=== PATIENT | female | born 1945 | race Caucasian/White ===

== ENCOUNTER 2017-12-03 00:58 | Emergency (ER) | payer MEDICARE, BC, SELFPAY ==
[2017-12-03 01:15] VITALS: BP 185/95; PULSE 68; RESP 18; TEMP 37.2; O2SAT 96; BMI 41.9
--- NOTE | 2017-12-03 01:37 | ED_ITS ---
HPI - Female Genitourinary General Chief complaint: Urogenital-Female Stated complaint: Blood in urine Time Seen by Provider: 12/03/17 01:23 Source: patient Mode of arrival: ambulatory Limitations: no limitations History of Present Illness HPI Narrative: Patient is a 72-year-old female presents with blood in her urine. She said she went up to use the restroom this evening when she noticed bright red blood. She has no pain she is feeling well prior. No vomiting no fever no flank pain she is not on any blood thinners. MD Complaint: other (Hematuria) Related Data Previous Rx's Medication Instructions Recorded sulfamethoxazole-trimethoprim 1 tab PO BID 5 Days #10 tab 12/03/17 [Bactrim DS] Allergies Allergy/AdvReac Type Severity Reaction Status Date / Time rivaroxaban [From XARELTO] AdvReac Mild HIVES Verified 12/03/17 01:18 Review of Systems Constitutional Denies chills, Denies fever(s), Denies lethargy and Denies weakness Cardiovascular Denies chest pain, Denies irregular heart rhythm, Denies lightheadedness, Denies palpitations and Denies orthopnea Gastrointestinal Gastrointestinal: Denies abdominal pain, Denies change in bowel habits, Denies diarrhea, Denies nausea and Denies vomiting Genitourinary Reports as per HPI and Reports hematuria Integumentary/Breasts Denies pruritus, Denies erythema, Denies rash and Denies wounds Neurologic Denies weakness Endocrine Denies palpitations PFSH Social History Smoking Status: Never smoker Exam Initial Vital Signs Initial Vital Signs: Vital Signs Temperature 98.9 F 12/03/17 01:15 Pulse Rate 68 12/03/17 01:15 Respiratory Rate 18 12/03/17 01:15 Blood Pressure 185/95 H 12/03/17 01:15 Pulse Oximetry 96 12/03/17 01:15 Const General: cooperative and well developed Nutritional Appearance: overweight Orientation: alert, awake, oriented x3 and not confused Chest Chest: normal inspection of the chest Resp Effort & Inspection: normal respiratory effort, able to speak in complete sentences, no respiratory distress and no use of accessory muscles Auscultation: clear to auscultation bilaterally, no rales, no rhonchi and no wheezes Cardio Rate: regular rate Rhythm: regular rhythm Heart Sounds: no click, no gallops, no murmurs and no rubs Pulses: normal peripheral pulses GI Inspection: non-distended Palpation: soft, no hepatosplenomegaly, No guarding, No pulsatile mass and No tender Auscultation: normal bowel sounds Skin General: no rashes or lesions noted, No jaundice and No petechiae Course Orders Ordered: ED Orders 12/03/17 02:10 UA Complete [Urinalysis and Microscopic] Stat Urine Culture Stat Discontinued Medications Trimethoprim/Sulfamethoxazole (Bactrim Ds Prepack) 1 bottle MIS SEEINSTR ONE Stop: 12/03/17 02:42 Last Admin: 12/03/17 02:51 Dose: 1 bottle Vital Signs - 8 hr 12/03/17 01:15 Temperature 98.9 F Pulse Rate 68 Respiratory Rate 18 Blood Pressure 185/95 H Pulse Oximetry 96 MDM - Female Genitourinary Lab Data Lab Results 12/03/17 Range/Units 02:10 Urine Color Yellow Urine Appearance Clear Urine pH 5.0 (4.5-8.0) Ur Specific [place] 1.025 (1.000-1.035) Urine Protein Negative (Negative) Urine Glucose (UA) Negative (Normal) g/dL Urine Ketones Negative (NEGATIVE) Urine Occult Blood Trace-intact (Negative) Urine Nitrate Negative (Negative) Urine Bilirubin Negative (NEGATIVE) Urine Urobilinogen 0.2 (0.2) E.U./dL Ur Leukocyte Esterase Trace H (NEGATIVE) Urine RBC 0-1/hpf (0-5/HPF) Urine WBC 0-1/hpf (0-5/HPF) Ur Squamous Epith Cells 1-5 /hpf Urine Bacteria Occasional (0-1) (None) Ur Culture Indicated? Specimen cultured Micro UA Comment Not Reportable [facility] Narrative Medical decision making narrative: Patient has gross blood with trace leukocytes. At this time will treat for UTI Discharge Plan Departure Patient Disposition: Home, Self-Care Clinical Impression: Urinary tract infection Instructions: DI for Urinary Tract Infection (UTI) Activity Restrictions/Additional Instructions: *You have been diagnosed with bladder infection *What to do: Increase fluid intake *Continue to take medications as directed -Septra 1 tablet twice a day for 5 days *Follow up with your primary care provider in 2-3 days *Return to ER if you should have increasing pain, persistent blood, fever inability to tolerate antibiotic or fluid [or] any new, worsening or concerning symptoms Prescriptions: New sulfamethoxazole-trimethoprim [Bactrim DS] 800-160 mg tablet 1 tab PO BID 5 Days Qty: 10 RF: 0
[2017-12-03 02:34] LABS: Appearance Urine UA CLEAR; Bilirubin Urine UA NEGATIVE (NEGATIVE); Color Urine UA YELLOW; Glucose Urine UA NEGATIVE (Normal); Ketones Urine UA NEGATIVE (NEGATIVE); Leukocyte Esterase Urine UA TRACE (NEGATIVE); Nitrite Urine UA Negative (Negative); Occult Blood Urine UA TRACE-INTACT (Negative); Protein Urine UA NEGATIVE (Negative); Specific Gravity Urine UA 1.025 (1.000-1.035); Urobilinogen Urine UA 0.2 E.U./dL (0.2)
[2017-12-03 02:39] LABS: Bacteria Urine Occasional (0-1); Culture Indicated Urine Specimen Cultured; RBC Urine 0-1/HPF (0-5/HPF); Squamous Epithelial Cell Urine 1-5 /HPF; WBC Urine 0-1/HPF (0-5/HPF)
[2017-12-03] MEDS: SULFA/TRIMETH 800/160 PREPACK 1 BOTTLE MISC (02:51)
[2017-12-03 03:15] VITALS: BP 185/95; PULSE 70; RESP 16; O2SAT 100
== END 2017-12-03 03:15 | disposition home or self-care (01) ==
LOC: ED 03:01
PROVIDERS: Emergency Provider Emergency Medicine
DX: N39.0 Urinary tract infection, site not specified (principal)
CPT/HCPCS: 81001; 87086; 99282; 99283

== ENCOUNTER 2018-02-26 02:01 | Emergency (ER) | payer MEDICARE, BC, SELFPAY ==
[2018-02-26 02:06] VITALS: BP 139/86; PULSE 58; TEMP 36.1; O2SAT 98; BMI 43.2
--- NOTE | 2018-02-26 02:22 | DI.RAD.S_ITS ---
PROCEDURE: XR CHEST 1V INDICATIONS: Dizziness. TECHNIQUE: One view of the chest was acquired. COMPARISON: [facility], , CHEST 1 VIEW, 03/06/2015, 11:00. FINDINGS: Surgical changes and devices: None. Lungs and pleura: No pleural effusions or pneumothorax. Lungs are clear. Mediastinum: Cardiac silhouette again measures at the upper limits of normal in size, but is unchanged from prior exam. Mild prominence of the pulmonary vasculature noted. Bones and chest wall: No suspicious bony lesions. Overlying soft tissues appear unremarkable. IMPRESSION: No acute cardiopulmonary disease. Dictated by: Chuy De Leon M.D. on 02/26/2018 at 8:26 Approved by: Chuy De Leon M.D. on 02/26/2018 at 8:29
--- NOTE | 2018-02-26 02:46 | DI.CT.S_ITS ---
PROCEDURE: CT HEAD/BRAIN WO CON INDICATIONS: dizziness TECHNIQUE: Noncontrast 4.5 mm thick angled axial sections acquired from the foramen magnum to the vertex, with coronal and sagittal reformats. For radiation dose reduction, the following was used: automated exposure control, adjustment of mA and/or kV according to patient size. COMPARISON: None. FINDINGS: Image quality: Excellent. CSF spaces: Basal cisterns are patent. No extra-axial fluid collections. The ventricles are symmetric in size and shape. Brain: No intracranial bleeds or masses. There is cerebral volume loss for age, with resultant ventricular and sulcal prominence. There are periventricular and deep white matter chronic small vessel ischemic changes. Incidental note made of cavum septum pellucidum. There is intracranial internal carotid artery atherosclerosis. Skull and face: Calvarium and visualized facial bones appear intact, without suspicious lesions. Sinuses: Visualized sinuses are clear. Trace fluid noted in the dependent portion of the right mastoid air cells. Left mastoid air cells are clear. IMPRESSION: No acute intracranial disease process. Dictated by: Alicia Frazier MD, PhD on 02/26/2018 at 7:40 Approved by: Alicia Frazier MD, PhD on 02/26/2018 at 7:43
[2018-02-26 02:50] LABS: Add Manual Diff / Slide Review NO; Basophils Percent Auto 0.8 % (0-2); Eosinophils Percent Auto 2.3 % (2-4); Hematocrit 36.9 % (36-46); Hemoglobin 12.6 g/dL (12.0-16.0); Mean Corpuscular HGB Conc 34.2 % (30-36); Mean Corpuscular Hemoglobin 31.3 PG (26-34); Mean Corpuscular Volume 91.5 fL (80-100); Monocytes Percent Auto 6.6 % (3-14); Neutrophils Absolute Auto 4700 /uL (3000-5900); Neutrophils Percent Auto 67.3 % (50-75); Platelet Count 237 X10^3/uL (150-400); Red Blood Cell Count 4.03 X10^6/uL (4.0-5.2); Red Cell Distribution Width 13.4 % (11.6-14.8)
--- NOTE | 2018-02-26 02:51 | ED_ITS ---
HPI - Dizziness General Chief Complaint: Dizziness Stated Complaint: TROUBLE SLEEPING AND DIZZY Time Seen by Provider: 02/26/18 02:05 Source: patient Mode of arrival: ambulatory Limitations: no limitations History of Present Illness HPI Narrative: 72-year-old female, nonsmoker, history of GERD presents to the emergency department for evaluation of dizziness that started suddenly as the patient was attempting to get into bed. She states she was intensely dizzy with any motion of her head and it seemed to improve when she remains still. She is no longer dizzy but does admit to some nausea. She has vomited a few times. She denies any chest pain or shortness of breath. She denies any abdominal pain but did have a loose stool earlier. She denies any black or tarry stools. She denies any dysuria, frequency or urgency. She had a similar episode a few years ago with a very thorough evaluation including admission with MRI which ended in the diagnosis inner ear infection. She does admit to some nasal congestion and runny nose recently. Her symptoms started at about 10 or 11 this evening MD complaint: dizziness Onset (ago): hour(s) Timing: sudden onset Description: room spinning History of similar episodes: Yes History of trauma: No Severity: moderate Relieving factors: remaining still Exacerbating factors: movement Associated symptoms: nausea Related Data Previous Rx's Medication Instructions Recorded meclizine 12.5 mg PO BID-TID PRN #14 tab 02/26/18 ondansetron [Zofran ODT] 4 mg PO Q6H PRN #14 tab 02/26/18 Allergies Allergy/AdvReac Type Severity Reaction Status Date / Time rivaroxaban [From XARELTO] AdvReac Mild HIVES Verified 12/03/17 01:18 Review of Systems Review of Systems All systems reviewed & are unremarkable except as noted in HPI and below Constitutional Denies chills, Denies fever(s), Denies lethargy and Denies weakness Eyes Denies change in vision, Denies eye discharge, Denies irritation and Denies loss of vision ENT Ears, Nose, Mouth, and Throat: Denies change in voice, Reports dizziness, Reports nasal congestion, Reports nasal discharge, Denies neck pain and Denies sore throat Cardiovascular Denies chest pain, Denies irregular heart rhythm, Denies lightheadedness, Denies palpitations, Denies dyspnea, Denies dyspnea on exertion and Denies orthopnea Respiratory Denies cough, Denies dyspnea, Denies dyspnea on exertion and Denies wheezing Gastrointestinal Gastrointestinal: Denies abdominal pain, Denies change in bowel habits, Denies diarrhea, Reports nausea and Reports vomiting Genitourinary Denies hematuria, Denies flank pain, Denies urinary incontinence and Denies urinary urgency Musculoskeletal Denies neck pain Integumentary/Breasts Denies pruritus, Denies erythema, Denies rash and Denies wounds Neurologic Denies confusion, Reports dizziness, Denies loss of vision and Denies weakness Psychiatric Denies anxiety, Denies confusion, Denies depression, Denies homicidal ideation and Denies suicidal ideation Endocrine Denies palpitations Hematologic/Lymphatic Denies easy bruising Allergic/Immunologic Denies wheezing [facility] Social History Smoking Status: Never smoker Exam Narrative Exam Narrative: Pleasant 72-year-old female in no obvious distress Initial Vital Signs Initial Vital Signs: Vital Signs Temperature 97 F L 02/26/18 02:06 Pulse Rate 58 L 02/26/18 02:06 Blood Pressure 139/86 02/26/18 02:06 Pulse Oximetry 98 02/26/18 02:06 Const General: cooperative and well developed Nutritional Appearance: well nourished Orientation: alert, awake, oriented x3 and not confused [facility] Head: normocephalic and atraumatic Ears: external ears normal and TM's normal bilaterally Nose: external nose normal and No nasal discharge Face and sinus: dry mucous membranes Teeth and gingiva: dentition normal Throat: tonsils normal and uvula midline Eyes General: appearance normal, both eyes and all related structures Eyelids: eyelids normal Conjunctivae: conjunctivae normal Sclera: sclerae normal Pupils: PERRL EOM: EOM intact bilaterally Chest Chest: normal inspection of the chest Resp Effort & Inspection: normal respiratory effort, able to speak in complete sentences, no respiratory distress and no use of accessory muscles Auscultation: clear to auscultation bilaterally, no rales, no rhonchi and no wheezes Cardio Rate: regular rate Rhythm: regular rhythm Heart Sounds: no click, no gallops, no murmurs and no rubs Pulses: normal peripheral pulses GI Inspection: non-distended Palpation: soft, no hepatosplenomegaly, No guarding, No pulsatile mass and No tender Auscultation: normal bowel sounds Back/Spine/Pelvis Back: No CVA tenderness Cervical Spine: cervical ROM normal and No pain with cervical ROM Thoracic/Lumbar Spine: thoracic and lumbar spine normal to inspection Skin General: no rashes or lesions noted, No jaundice and No petechiae Neuro General: alert, oriented x3, gait normal and no focal motor deficits Speech: speech normal Extrem General: full ROM, no clubbing, cyanosis or edema, no pedal edema and no calf tenderness Scores NIH Stroke Scale Level of Conciousness: Alert, keenly responsive Ask month/age: Answers both questions correctly. Open/close eyes, close hand: Performs both tasks correctly Best gaze horizontal: Normal Visual arora: No visual loss Facial palsy: Normal symetrical movement Left arm drift: No drift for full 10 sec Right arm drift: No drift for full 10 sec Left leg drift: No drift for full 10 sec Right leg drift: No drift for full 10 sec Limb ataxia: Absent Sensory on face/arms/legs: Normal, no sensory loss Best language: No aphasia, normal Dysarthria: Normal Extinction or inattention: No abnormality Total NIH Stroke scale score: 0 Course Orders Ordered: ED Orders 02/26/18 02:22 XR chest 1V Stat EKG-12 Lead Stat 02/26/18 02:30 Complete Blood Count AUTO DIFF Stat Comprehensive Metabolic Panel Stat Troponin & CK Cardiac Panel Stat 02/26/18 02:46 CT head/brain wo con Stat Sodium Chloride (Normal Saline 0.9%) 1,000 mls @ 150 mls/hr IV CONT TRINITY Last Admin: 02/26/18 03:01 Dose: 150 mls/hr Discontinued Medications Meclizine HCl (Antivert) 25 mg PO NOW ONE Stop: 02/26/18 05:09 Last Admin: 02/26/18 05:12 Dose: 25 mg Ondansetron HCl (Zofran) 4 mg IV NOW ONE Stop: 02/26/18 05:09 Last Admin: 02/26/18 05:12 Dose: 4 mg Reevaluation(s) Reevaluation #1: patient feeling much better after fluid and meds noted above. Vital Signs - 8 hr 02/26/18 02:06 02/26/18 03:00 02/26/18 04:00 Temperature 97 F L Pulse Rate 58 L 59 L 94 H Pulse Rate [Orthostatic Lying] Pulse Rate [Orthostatic Sitting] Pulse Rate [Orthostatic Standing] Respiratory Rate Blood Pressure 139/86 Blood Pressure [Orthostatic Lying] Blood Pressure [Orthostatic Sitting] Blood Pressure [Orthostatic Standing] Blood Pressure [Right Arm] 146/77 H 154/59 H Pulse Oximetry 98 98 95 02/26/18 05:04 02/26/18 05:42 Temperature Pulse Rate 56 L Pulse Rate [Orthostatic Lying] 66 Pulse Rate [Orthostatic Sitting] 63 Pulse Rate [Orthostatic Standing] 65 Respiratory Rate 18 Blood Pressure Blood Pressure [Orthostatic Lying] 159/75 H Blood Pressure [Orthostatic Sitting] 159/81 H Blood Pressure [Orthostatic Standing] 167/83 H Blood Pressure [Right Arm] 169/76 H Pulse Oximetry 97 MDM - Dizziness Differential Diagnosis Likely benign paroxysmal positional vertigo, orthostatic hypotension, vertebral basilar insufficiency, cerebrovascular accident, acute vestibular neuronitis and transient cerebral ischemia Medical Records Attestation: I reviewed the patient's medical records. Lab Data Attestation: I reviewed the patient's lab results. Result diagrams: 02/26/18 02:30 02/26/18 02:30 Lab Results 02/26/18 02/26/18 Range/Units 02:30 02:30 WBC 7.0 (4.5-11.0) X10^3/uL RBC 4.03 (4.0-5.2) X10^6/uL Hgb 12.6 (12.0-16.0) g/dL Hct 36.9 (36-46) % MCV 91.5 (80-100) fL MCH 31.3 (26-34) PG MCHC 34.2 (30-36) % RDW 13.4 (11.6-14.8) % Plt Count 237 (150-400) X10^3/uL Neut % (Auto) 67.3 (50-75) % Lymph % (Auto) 23.0 L (25-40) % [place] % (Auto) 6.6 (3-14) % Eos % (Auto) 2.3 (2-4) % Baso % (Auto) 0.8 (0-2) % Neut # (Auto) 4700 (5729-8073) /uL Sodium 144 (137-145) mmol/L Potassium 3.5 (3.4-5.1) mmol/L Chloride 105 (98-107) mmol/L Carbon Dioxide 27 (22-32) mmol/L BUN 28 H (7-17) mg/dL Creatinine 0.70 (0.52-1.04) mg/dL Estimated GFR > 60.0 (>60) mL/min BUN/Creatinine Ratio 40.0 H (6-22) Glucose 157 H (80-110) mg/dL Calcium 9.3 (8.4-10.2) mg/dL Total Bilirubin 0.5 (0.2-1.3) mg/dL AST 32 (14-36) IU/L ALT 31 (9-52) IU/L Alkaline Phosphatase 69 (38-126) U/L Total Creatine Kinase 41 (30-135) U/L Troponin I < 0.012 (0.01-0.034) ng/mL Total Protein 7.7 (6.3-8.2) g/dL Albumin 4.3 (3.5-5.0) g/dL Globulin 3.4 (1.7-4.1) g/dL Albumin/Globulin Ratio 1.3 (1.0-2.8) ECG Data Attestation: I personally reviewed and interpreted this ECG as follows: Prior ECG tracings: not available for review MDM Narrative Medical decision making narrative: patient with reproduceable dizziness is improved after medications and fluids. Normal orthostatics and head CT. Unremarkable labs. Discharge Plan Departure Patient Disposition: Home Clinical Impression: Dizziness Instructions: Combating Dizziness in Older Adults Activity Restrictions/Additional Instructions: *You have been diagnosed with [ acute dizziness] *What to do: *Take medications as directed *Follow up with your primary care provider in 2-3 days, call for an appointment. Let them know you were seen in the Emergency Department and that we ask that you be seen in follow up *Return to ER if you should have any new, worsening or concerning symptoms Prescriptions: New ondansetron [Zofran ODT] 4 mg tablet,disintegrating 4 mg PO Q6H PRN (Reason: nausea and vomiting) Qty: 14 RF: 0 meclizine 25 mg tablet 12.5 mg PO BID-TID PRN (Reason: dizziness) Qty: 14 RF: 0
[2018-02-26 02:55] LABS: Alanine Aminotransferase 31 IU/L (9-52); Albumin 4.3 g/dL (3.5-5.0); Albumin Globulin Ratio 1.3 (1.0-2.8); Alkaline Phosphatase 69 U/L (38-126); Aspartate Aminotransferase 32 IU/L (14-36); Bilirubin Total 0.5 mg/dL (0.2-1.3); Blood Urea Nitrogen 28 mg/dL (7-17); Calcium 9.3 mg/dL (8.4-10.2); Carbon Dioxide 27 mmol/L (22-32); Chloride 105 mmol/L (98-107); Creatine Kinase 41 U/L (30-135); Estimated Glomerular Filt Rate > 60.0 mL/min (>60); Globulin 3.4 g/dL (1.7-4.1); Glucose 157 mg/dL (80-110); HEMOLYSIS < 15 (0-50); Potassium 3.5 mmol/L (3.4-5.1); Sodium 144 mmol/L (137-145); Total Protein 7.7 g/dL (6.3-8.2)
[2018-02-26 03:00] VITALS: BP 146/77; PULSE 59; O2SAT 98
[2018-02-26] MEDS: SODIUM CHLORIDE 0.9% 1,000 ML 150 ML IV (03:01)
[2018-02-26 03:07] LABS: Troponin I < 0.012 ng/mL (0.01-0.034)
[2018-02-26 04:00] VITALS: BP 154/59; PULSE 94; O2SAT 95
[2018-02-26 05:04] VITALS: BP 159/75; BP 159/81; BP 167/83; PULSE 63; PULSE 65; PULSE 66
[2018-02-26] MEDS: MECLIZINE HCL 12.5 MG TABLET 25 MG PO (05:12)
[2018-02-26] MEDS: ONDANSETRON 4 MG/2 ML INJ IV (05:12)
[2018-02-26 05:42] VITALS: BP 169/76; PULSE 56; RESP 18; O2SAT 97
[2018-02-26 06:59] VITALS: BP 151/72; PULSE 60; RESP 18; O2SAT 98
--- NOTE | 2018-03-10 18:37 | PC.NURSE ---
At 0700 IV infused.600 ml infused.400 ml wasted.
== END 2018-02-26 07:01 | disposition home or self-care (01) ==
PROVIDERS: Emergency Provider Emergency Medicine; Family Provider Internal Medicine; PCP Internal Medicine
DX: R42 Dizziness and giddiness (principal)
CPT/HCPCS: 70450; 71045; 80053; 82550; 82553; 84484; 85025; 93005; 96361; 96374; 99283; 99285; J2405

== ENCOUNTER 2018-05-10 10:15 | Outpatient (RCR) | payer MEDICARE, BC, SELFPAY ==
--- NOTE | 2018-01-20 10:26 | PT.OIE ---
Current Diagnoses Bilateral primary osteoarthritis of knee (01/19/18) Provider Visit Care Team Role Provider Type Sriram Badillo MD Family Provider Physician Primary Care Provider Specialty: Internal Medicine Address: [address] [place] [address], [id number] Email: Aisha Jones MD Attending Provider Physician Specialty: Orthopedic Surgery Address: [address] [place] [address], [id number] Email: [email or web address] Physical Therapy Initial Evaluation PT-OP-A Visit Information Start: 01/19/18 14:31 Freq: Status: Active Protocol: Document 01/19/18 14:33 SAK (Rec: 01/19/18 16:37 SAK [id number]) Out-Patient Physical Therapy Visit Information Visit Information Visit Type Initial Evaluation Visit Start Time 14:33 Visit Stop Time 14:20 Total Visit Minutes 47 Visit Number 1 Number of LITIGATION PARALEGAL Visits 0 Evaluation Information Evaluation Date 01/19/18 PT-OP-B Current Condition Start: 01/19/18 14:31 Freq: Status: Active Protocol: Document 01/19/18 14:33 SAK (Rec: 01/19/18 14:44 SAK [id number]) Current Condition History of Current Condition Onset Date 15 years Current Complaints severe bilateral knee pain left greater than right History of Current Condition Reports multiple prior falls onto left LE that have caught up with me. Most difficult and painful activity is sit to stand. Uses trekking poles sometimes, states helps a lot because they keep me straight . Stair ambulation difficult , step-to pattern uses arms a lot. Uses scooter at grocery store. States she has done water exercise before, requests aquatic PT. Provides 5 day/wk care for grandchildren Prior Treatments and Tests x-rays show severe patellofemoral and medial compartment osteoarthritis bilaterally with osteophyte formation Future Testing and Treatments Planned Follow-up with Dr. Jones in 2 weeks Treatment Goals Patient/Caregiver Goals Decrease pain, improve activity tolerance, improve strength possibly in preparation for surgical intervention. Prior Functional Status Baseline Function- ADL's Independent Baseline Function- Mobility Independent Baseline Function- Gait independent, no device Current Functional Impairments (Reported) Functional Limitations- Mobility/Gait painful uses trekking poles, scooter at grocery store. Poor tolerance for community ambulation Personal Factors Other Personal Factors That May Effect Busy schedule with patient Therapy/Recovery expressing uncertainty about how to fit regular exercise into her schedule of caring for her grandchildren PT-OP-C Subjective Start: 01/19/18 14:31 Freq: Status: Active Protocol: Document 01/19/18 14:33 [facility] (Rec: 01/20/18 10:26 [facility] [id number]) Patient Questionnaires Lower Extremity Functional Scale LEFS Score 38 LEFS Impairment 40 to 59% Impaired (Score 32- 47) OP-PT Pain Assessment Pain Assessment Grid Paper Pain Assessment Grid Completed Yes Location Bilateral Knee Pain Location Details 6 left, 2-3 right Intensity 6 Scale Used Numeric (1 - 10) Description Aching Stabbing Throbbing With Movement Frequency Frequent Pain Aggravating Factors Changing Position Standing Walking Pain Alleviating Factors Cold Medication Inactivity Home Pain Medication Use Pain Medications Used No Pain Behaviors Pain Behaviors Facial Grimacing [place] PT-OP-F Manual Assessment Start: 01/19/18 14:31 Freq: Status: Active Protocol: Document 01/19/18 14:33 [facility] (Rec: 01/20/18 10:26 [facility] [id number]) Manual Assessments Soft Tissue Assessment Soft Tissue Mobility Assessment Palpable muscle tightness left quads and hamstrings PT-OP-G Mobility & Gait Start: 01/19/18 14:31 Freq: Status: Active Protocol: Document 01/19/18 14:33 [facility] (Rec: 01/20/18 10:26 [facility] [id number]) OP Mobility Evaluation Transfers Sit to Stand independent with decreased weight bearing left LE and c/o pain Floor Transfers unable Functional Movements Squats unable Running Assessment unable OP Gait Assessment Gait Gait Assistance Required: Independent Assistive Devices Assistive Device None Gait Deviations General Gait Pattern Antalgic Decreased Stride Length Decreased Feet Clearance Flexed Trunk Lateral Trunk Lean Factors Limiting Gait Function Factors Limiting Gait Function Pain Stair Climbing Evaluation Evaluation Level of Assist On Stairs Independent Technique/Endurance Stair Climbing Technique Step to Step PT-OP-K Range of Motion Start: 01/19/18 14:31 Freq: Status: Active Protocol: Document 01/19/18 14:33 [facility] (Rec: 01/20/18 10:26 [facility] [id number]) Knee Goniometric Range of Motion Knee Measured in Degrees Left Flexion Active (degrees) 70 Extension Active (degrees) 22 Right Flexion Active (degrees) 107 Extension Active (degrees) 0 Knee ROM Limitations Knee ROM Limitations Bony Restriction Pain Ankle and Foot Goniometric Range of Motion Ankle and Foot ROM Limitations Comments bilateral WFL PT-OP-M Strength Start: 01/19/18 14:31 Freq: Status: Active Protocol: Document 01/19/18 14:33 [facility] (Rec: 01/20/18 10:26 [facility] [id number]) Knee Strength Knee Manual Muscle Testing Left Flexion (S2) 4- Good- Extension (L3) 4- Good- Right Flexion (S2) 4+ Good+ Extension (L3) 4+ Good+ PT-OP-Q Treatments Start: 01/19/18 14:31 Freq: Status: Active Protocol: Document 01/19/18 14:33 [facility] (Rec: 01/19/18 16:44 [facility] [id number]) Self-Care/Home Management Treatment Education Patient Education Home Exercise Program Other Education Issued written instructions. Discussed benefits of aquatic PT. Activities Self-Care/Home Management Activities Do gentle ROM of left knee for a few reps prior to standing PT-OP-T Assessment and Plan Start: 01/19/18 14:31 Freq: Status: Active Protocol: Document 01/19/18 14:33 [facility] (Rec: 01/20/18 10:26 [facility] [id number]) Physical Therapy Assessment Rehab Potential Rehabilitation Potential Fair Evaluation Complexity Number of Personal Factors/Comorbidities 1-2 Number of Body Systems Impaired 3 Clinical Presentation at Evaluation Evolving Impairments Impairments Activity Tolerance Functional Mobility Gait Pain ROM Strength Other Concerns Fall Risk yes Barriers to Rehabilitation severity of arthritis Goals Five Impairment strength 4-/5 left kne Short Term Goal (STG) Patient to be independent with HEP and be able to tolerate a 45 min aquatic exercise program without increase in pain or excess fatigue STG Duration 6 wks Skilled Nursing Goal (LTG) Improve left knee strength to 4+/5 LTG Duration 3 months Three Impairment Lower extremity functional scale 46% Short Term Goal (STG) Improve LEFS to 53% STG Duration 6 wks Artificial Fly Tier Goal (LTG) Improve LEFS score to at least 60% LTG Duration 3 months Two Impairment gait dysfunction; antalgic Short Term Goal (STG) Instruct patient in use of appropriate assistive device STG Duration 3 wks Skilled Nursing Goal (LTG) Patient able to ambulate on level surfaces without a limp LTG Duration 3 months One Impairment pain 6/10 Artificial Fly Tier Goal (LTG) Decrease pain to no greater than 4/10 LTG Duration 3 months Assessment Summary Assessment Patient presents with severe osteoarthritis bilateral knees left greater than right which is limiting her tolerance for functional activity and her quality of life. Would benefit from aquatic PT for gentle ther ex in a buoyancy supported environment to decrease joint stress and allow her to improve her strength and gait, and ability to function in her daily life . Physical Therapy Plan Frequency and Duration Frequency of Treatment 2x/Week Duration of Treatment 3 months Plan of Care Start Date 01/19/18 Plan of Care End Date 04/21/18 Therapeutic Interventions Therapeutic Interventions Aquatic Therapy Home Exercise Program Patient/Caregiver Education Self-Care/Home Management Next Visit Focus/Plan Next Note Type Treatment Note Next Visit Plan Initiate aquatic therapy
--- NOTE | 2018-01-20 10:26 | PT.OPPOC ---
Current Diagnoses Bilateral primary osteoarthritis of knee (01/19/18) Provider Visit Care Team Role Provider Type Sriram Badillo MD Family Provider Physician Primary Care Provider Specialty: Internal Medicine Address: [address] [place] [address], [id number] Email: Aisha Jones MD Attending Provider Physician Specialty: Orthopedic Surgery Address: [address] [place] [address], [id number] Email: [email or web address] Plan Of Care PT-OP-T Assessment and Plan Start: 01/19/18 14:31 Freq: Status: Active Protocol: Document 01/19/18 14:33 [facility] (Rec: 01/20/18 10:26 SAK [id number]) Physical Therapy Assessment Rehab Potential Rehabilitation Potential Fair Evaluation Complexity Number of Personal Factors/Comorbidities 1-2 Number of Body Systems Impaired 3 Clinical Presentation at Evaluation Evolving Impairments Impairments Activity Tolerance Functional Mobility Gait Pain ROM Strength Other Concerns Fall Risk yes Barriers to Rehabilitation severity of arthritis Goals Five Impairment strength 4-/5 left kne Short Term Goal (STG) Patient to be independent with HEP and be able to tolerate a 45 min aquatic exercise program without increase in pain or excess fatigue STG Duration 6 wks Legal Collector Goal (LTG) Improve left knee strength to 4+/5 LTG Duration 3 months Three Impairment Lower extremity functional scale 46% Short Term Goal (STG) Improve LEFS to 53% STG Duration 6 wks Legal Collector Goal (LTG) Improve LEFS score to at least 60% LTG Duration 3 months Two Impairment gait dysfunction; antalgic Short Term Goal (STG) Instruct patient in use of appropriate assistive device STG Duration 3 wks Half-Way Goal (LTG) Patient able to ambulate on level surfaces without a limp LTG Duration 3 months One Impairment pain 6/10 Legal Collector Goal (LTG) Decrease pain to no greater than 4/10 LTG Duration 3 months Assessment Summary Assessment Patient presents with severe osteoarthritis bilateral knees left greater than right which is limiting her tolerance for functional activity and her quality of life. Would benefit from aquatic PT for gentle ther ex in a buoyancy supported environment to decrease joint stress and allow her to improve her strength and gait, and ability to function in her daily life . Physical Therapy Plan Frequency and Duration Frequency of Treatment 2x/Week Duration of Treatment 3 months Plan of Care Start Date 01/19/18 Plan of Care End Date 04/21/18 Therapeutic Interventions Therapeutic Interventions Aquatic Therapy Home Exercise Program Patient/Caregiver Education Self-Care/Home Management Next Visit Focus/Plan Next Note Type Treatment Note Next Visit Plan Initiate aquatic therapy Plan of Care Dates Plan of Care Start Date 01/19/18 Plan of Care End Date 04/21/18 Please Sign and Return: I have reviewed this Plan of Care and certify that the skilled therapy services above are required to meet the patient?s needs. Physician Signature Date Printed Name and Credentials Clinical Instructor Signature Printed Name and Credentials
--- NOTE | 2018-03-03 15:54 | PT.OTN ---
Current Diagnoses Bilateral primary osteoarthritis of knee (03/03/18) Physical Therapy Treatment Note PT-OP-A Visit Information Start: 01/19/18 14:31 Freq: Status: Active Protocol: Document 03/03/18 10:15 SAK (Rec: 03/03/18 15:53 [facility] [id number]) Out-Patient Physical Therapy Visit Information Visit Information Visit Type Treatment Note Visit Start Time 10:15 Visit Stop Time 11:00 Total Visit Minutes 40 Visit Number 2 Number of [employer] Visits 0 Evaluation Information Evaluation Date 01/19/18 PT-OP-B Current Condition Start: 01/19/18 14:31 Freq: Status: Active Protocol: Document 01/19/18 14:33 SAK (Rec: 01/19/18 14:44 SAK [id number]) Current Condition History of Current Condition Onset Date 15 years Current Complaints severe bilateral knee pain left greater than right History of Current Condition Reports multiple prior falls onto left LE that have caught up with me. Most difficult and painful activity is sit to stand. Uses trekking poles sometimes, states helps a lot because they keep me straight . Stair ambulation difficult , step-to pattern uses arms a lot. Uses scooter at grocery store. States she has done water exercise before, requests aquatic PT. Provides 5 day/wk care for grandchildren Prior Treatments and Tests x-rays show severe patellofemoral and medial compartment osteoarthritis bilaterally with osteophyte formation Future Testing and Treatments Planned Follow-up with Dr. Jones in 2 weeks Treatment Goals Patient/Caregiver Goals Decrease pain, improve activity tolerance, improve strength possibly in preparation for surgical intervention. Prior Functional Status Baseline Function- ADL's Independent Baseline Function- Mobility Independent Baseline Function- Gait independent, no device Current Functional Impairments (Reported) Functional Limitations- Mobility/Gait painful uses trekking poles, scooter at grocery store. Poor tolerance for community ambulation Personal Factors Other Personal Factors That May Effect Busy schedule with patient Therapy/Recovery expressing uncertainty about how to fit regular exercise into her schedule of caring for her grandchildren PT-OP-C Subjective Start: 01/19/18 14:31 Freq: Status: Active Protocol: Document 03/03/18 10:15 SAK (Rec: 03/03/18 15:53 [facility] [id number]) OP-PT Subjective Patient Comments Patient Comments Is feeling hopeful about aquatic therapy PT-OP-F Manual Assessment Start: 01/19/18 14:31 Freq: Status: Active Protocol: Document 01/19/18 14:33 [facility] (Rec: 01/20/18 10:26 [facility] [id number]) Manual Assessments Soft Tissue Assessment Soft Tissue Mobility Assessment Palpable muscle tightness left quads and hamstrings PT-OP-G Mobility & Gait Start: 01/19/18 14:31 Freq: Status: Active Protocol: Document 01/19/18 14:33 [facility] (Rec: 01/20/18 10:26 [facility] [id number]) OP Mobility Evaluation Transfers Sit to Stand independent with decreased weight bearing left LE and c/o pain Floor Transfers unable Functional Movements Squats unable Running Assessment unable OP Gait Assessment Gait Gait Assistance Required: Independent Assistive Devices Assistive Device None Gait Deviations General Gait Pattern Antalgic Decreased Stride Length Decreased Feet Clearance Flexed Trunk Lateral Trunk Lean Factors Limiting Gait Function Factors Limiting Gait Function Pain Stair Climbing Evaluation Evaluation Level of Assist On Stairs Independent Technique/Endurance Stair Climbing Technique Step to Step PT-OP-K Range of Motion Start: 01/19/18 14:31 Freq: Status: Active Protocol: Document 01/19/18 14:33 [facility] (Rec: 01/20/18 10:26 [facility] [id number]) Knee Goniometric Range of Motion Knee Measured in Degrees Left Flexion Active (degrees) 70 Extension Active (degrees) 22 Right Flexion Active (degrees) 107 Extension Active (degrees) 0 Knee ROM Limitations Knee ROM Limitations Bony Restriction Pain Ankle and Foot Goniometric Range of Motion Ankle and Foot ROM Limitations Comments bilateral WFL PT-OP-M Strength Start: 01/19/18 14:31 Freq: Status: Active Protocol: Document 01/19/18 14:33 [facility] (Rec: 01/20/18 10:26 [facility] [id number]) Knee Strength Knee Manual Muscle Testing Left Flexion (S2) 4- Good- Extension (L3) 4- Good- Right Flexion (S2) 4+ Good+ Extension (L3) 4+ Good+ PT-OP-Q Treatments Start: 01/19/18 14:31 Freq: Status: Active Protocol: Document 01/19/18 14:33 [facility] (Rec: 01/19/18 16:44 [facility] [id number]) Self-Care/Home Management Treatment Education Patient Education Home Exercise Program Other Education Issued written instructions. Discussed benefits of aquatic PT. Activities Self-Care/Home Management Activities Do gentle ROM of left knee for a few reps prior to standing PT-OP-S Aquatic Treatment Start: 03/03/18 15:48 Freq: Status: Active Protocol: Document 03/03/18 10:15 [facility] (Rec: 03/03/18 15:53 [facility] [id number]) Aquatics Treatment Pool Entry/Exit Pool Entry/Exit Method Stairs Assistance Standby Assistance Water Walking forward,back, side, august, soldier august Water Level Chest Level Level of Assistance Standby Assistance Comments verbal cues Lower Extremity Exercises hip circles Body Position Standing Water Level Chest Level Reps/Duration 10x ea direction ea leg heel raises, toe raises Body Position Standing Water Level Chest Level Reps/Duration 10x Dornsife Activities Dornsife Activities Bicycle Cross [place] Running Hip Abduction/Adduction Sit Kicks Equipment small flotation belt Duration 20 min PT-OP-T Assessment and Plan Start: 01/19/18 14:31 Freq: Status: Active Protocol: Document 03/03/18 10:15 [facility] (Rec: 03/03/18 15:53 [facility] [id number]) Physical Therapy Assessment Goals Five Impairment strength 4-/5 left kne Short Term Goal (STG) Patient to be independent with HEP and be able to tolerate a 45 min aquatic exercise program without increase in pain or excess fatigue STG Duration 6 wks Wrapping Machine Helper Goal (LTG) Improve left knee strength to 4+/5 LTG Duration 3 months Three Impairment Lower extremity functional scale 46% Short Term Goal (STG) Improve LEFS to 53% STG Duration 6 wks Retirement Goal (LTG) Improve LEFS score to at least 60% LTG Duration 3 months Two Impairment gait dysfunction; antalgic Short Term Goal (STG) Instruct patient in use of appropriate assistive device STG Duration 3 wks Wrapping Machine Helper Goal (LTG) Patient able to ambulate on level surfaces without a limp LTG Duration 3 months One Impairment pain 6/10 Wrapping Machine Helper Goal (LTG) Decrease pain to no greater than 4/10 LTG Duration 3 months Assessment Summary Assessment Good tolerance for aquatic therapy with patient reporting decreased pain compared to activity on land. Physical Therapy Plan Frequency and Duration Frequency of Treatment 2x/Week Duration of Treatment 3 months Plan of Care Start Date 01/19/18 Plan of Care End Date 04/21/18 Therapeutic Interventions Therapeutic Interventions Aquatic Therapy Home Exercise Program Patient/Caregiver Education Self-Care/Home Management Next Visit Focus/Plan Next Note Type Treatment Note Next Visit Plan progression of aquatic therapy as tolerated
--- NOTE | 2018-03-10 16:44 | PT.OTN ---
Current Diagnoses Bilateral primary osteoarthritis of knee (03/10/18) Physical Therapy Treatment Note PT-OP-A Visit Information Start: 01/19/18 14:31 Freq: Status: Active Protocol: Document 03/10/18 16:37 SAK (Rec: 03/10/18 16:43 [facility] [id number]) Out-Patient Physical Therapy Visit Information Visit Information Visit Type Treatment Note Visit Start Time 10:15 Visit Stop Time 11:00 Total Visit Minutes 45 Visit Number 3 Number of ACTIVITIES ATTENDANT Visits 0 PT-OP-B Current Condition Start: 01/19/18 14:31 Freq: Status: Active Protocol: Document 01/19/18 14:33 SAK (Rec: 01/19/18 14:44 SAK [id number]) Current Condition History of Current Condition Onset Date 15 years Current Complaints severe bilateral knee pain left greater than right History of Current Condition Reports multiple prior falls onto left LE that have caught up with me. Most difficult and painful activity is sit to stand. Uses trekking poles sometimes, states helps a lot because they keep me straight . Stair ambulation difficult , step-to pattern uses arms a lot. Uses scooter at grocery store. States she has done water exercise before, requests aquatic PT. Provides 5 day/wk care for grandchildren Prior Treatments and Tests x-rays show severe patellofemoral and medial compartment osteoarthritis bilaterally with osteophyte formation Future Testing and Treatments Planned Follow-up with Dr. Jones in 2 weeks Treatment Goals Patient/Caregiver Goals Decrease pain, improve activity tolerance, improve strength possibly in preparation for surgical intervention. Prior Functional Status Baseline Function- ADL's Independent Baseline Function- Mobility Independent Baseline Function- Gait independent, no device Current Functional Impairments (Reported) Functional Limitations- Mobility/Gait painful uses trekking poles, scooter at grocery store. Poor tolerance for community ambulation Personal Factors Other Personal Factors That May Effect Busy schedule with patient Therapy/Recovery expressing uncertainty about how to fit regular exercise into her schedule of caring for her grandchildren PT-OP-C Subjective Start: 01/19/18 14:31 Freq: Status: Active Protocol: Document 03/10/18 16:37 SAK (Rec: 03/10/18 16:43 [facility] [id number]) OP-PT Subjective Patient Comments Patient Comments Tolerated first aquatic PT session well, no increase in pain. PT-OP-F Manual Assessment Start: 01/19/18 14:31 Freq: Status: Active Protocol: Document 01/19/18 14:33 [facility] (Rec: 01/20/18 10:26 [facility] [id number]) Manual Assessments Soft Tissue Assessment Soft Tissue Mobility Assessment Palpable muscle tightness left quads and hamstrings PT-OP-G Mobility & Gait Start: 01/19/18 14:31 Freq: Status: Active Protocol: Document 01/19/18 14:33 [facility] (Rec: 01/20/18 10:26 [facility] [id number]) OP Mobility Evaluation Transfers Sit to Stand independent with decreased weight bearing left LE and c/o pain Floor Transfers unable Functional Movements Squats unable Running Assessment unable OP Gait Assessment Gait Gait Assistance Required: Independent Assistive Devices Assistive Device None Gait Deviations General Gait Pattern Antalgic Decreased Stride Length Decreased Feet Clearance Flexed Trunk Lateral Trunk Lean Factors Limiting Gait Function Factors Limiting Gait Function Pain Stair Climbing Evaluation Evaluation Level of Assist On Stairs Independent Technique/Endurance Stair Climbing Technique Step to Step PT-OP-K Range of Motion Start: 01/19/18 14:31 Freq: Status: Active Protocol: Document 01/19/18 14:33 [facility] (Rec: 01/20/18 10:26 [facility] [id number]) Knee Goniometric Range of Motion Knee Measured in Degrees Left Flexion Active (degrees) 70 Extension Active (degrees) 22 Right Flexion Active (degrees) 107 Extension Active (degrees) 0 Knee ROM Limitations Knee ROM Limitations Bony Restriction Pain Ankle and Foot Goniometric Range of Motion Ankle and Foot ROM Limitations Comments bilateral WFL PT-OP-M Strength Start: 01/19/18 14:31 Freq: Status: Active Protocol: Document 01/19/18 14:33 [facility] (Rec: 01/20/18 10:26 [facility] [id number]) Knee Strength Knee Manual Muscle Testing Left Flexion (S2) 4- Good- Extension (L3) 4- Good- Right Flexion (S2) 4+ Good+ Extension (L3) 4+ Good+ PT-OP-Q Treatments Start: 01/19/18 14:31 Freq: Status: Active Protocol: Document 01/19/18 14:33 [facility] (Rec: 01/19/18 16:44 [facility] [id number]) Self-Care/Home Management Treatment Education Patient Education Home Exercise Program Other Education Issued written instructions. Discussed benefits of aquatic PT. Activities Self-Care/Home Management Activities Do gentle ROM of left knee for a few reps prior to standing PT-OP-S Aquatic Treatment Start: 03/03/18 15:48 Freq: Status: Active Protocol: Document 03/10/18 16:37 [facility] (Rec: 03/10/18 16:43 [facility] [id number]) Aquatics Treatment Pool Entry/Exit Pool Entry/Exit Method Stairs Assistance Independent Water Walking forward,back, side, august, august Water Level Chest Level Walking Equipment Resistance Fins Level of Assistance Standby Assistance Comments verbal cues Lower Extremity Exercises hip flex/ext, ab/ad Body Position Standing Water Level Chest Level Reps/Duration 10x hip circles Body Position Standing Water Level Chest Level Reps/Duration 10x ea direction ea leg heel raises, toe raises Body Position Standing Water Level Chest Level Reps/Duration 10x [place] Activities [place] Activities Bicycle Bicycle Backwards [place] Running Hip Abduction/Adduction Equipment small noodle PT-OP-T Assessment and Plan Start: 01/19/18 14:31 Freq: Status: Active Protocol: Document 03/10/18 16:37 [facility] (Rec: 03/10/18 16:43 [facility] [id number]) Physical Therapy Assessment Goals Five Impairment strength 4-/5 left kne Short Term Goal (STG) Patient to be independent with HEP and be able to tolerate a 45 min aquatic exercise program without increase in pain or excess fatigue STG Duration 6 wks Commercial Real Estate Assistant Goal (LTG) Improve left knee strength to 4+/5 LTG Duration 3 months Three Impairment Lower extremity functional scale 46% Short Term Goal (STG) Improve LEFS to 53% STG Duration 6 wks Commercial Real Estate Assistant Goal (LTG) Improve LEFS score to at least 60% LTG Duration 3 months Two Impairment gait dysfunction; antalgic Short Term Goal (STG) Instruct patient in use of appropriate assistive device STG Duration 3 wks Commercial Real Estate Assistant Goal (LTG) Patient able to ambulate on level surfaces without a limp LTG Duration 3 months One Impairment pain 6/10 Commercial Real Estate Assistant Goal (LTG) Decrease pain to no greater than 4/10 LTG Duration 3 months Assessment Summary Assessment No increase in symptoms after first aquatic PT session. C/o tightness and pain left knee restricting her ability to bend; encouraged exercise in pain-free ROM. Physical Therapy Plan Frequency and Duration Frequency of Treatment 2x/Week Duration of Treatment 3 months Plan of Care Start Date 01/19/18 Plan of Care End Date 04/21/18 Therapeutic Interventions Therapeutic Interventions Aquatic Therapy Home Exercise Program Patient/Caregiver Education Self-Care/Home Management Next Visit Focus/Plan Next Note Type Treatment Note Next Visit Plan Continue to progress aquatic exercises as tolerated.
--- NOTE | 2018-03-15 14:28 | PT.OTN ---
Current Diagnoses Bilateral primary osteoarthritis of knee (03/10/18) Physical Therapy Treatment Note PT-OP-A Visit Information Start: 01/19/18 14:31 Freq: Status: Active Protocol: Document 03/15/18 10:15 ALFREDA (Rec: 03/15/18 14:28 LJ [id number]) Out-Patient Physical Therapy Visit Information Visit Information Visit Type Treatment Note Visit Start Time 10:15 Visit Stop Time 11:00 Total Visit Minutes 45 Visit Number 3 Number of PIPELINE OPERATOR Visits 1 PT-OP-B Current Condition Start: 01/19/18 14:31 Freq: Status: Active Protocol: Document 01/19/18 14:33 SAK (Rec: 01/19/18 14:44 SAK [id number]) Current Condition History of Current Condition Onset Date 15 years Current Complaints severe bilateral knee pain left greater than right History of Current Condition Reports multiple prior falls onto left LE that have caught up with me. Most difficult and painful activity is sit to stand. Uses trekking poles sometimes, states helps a lot because they keep me straight . Stair ambulation difficult , step-to pattern uses arms a lot. Uses scooter at grocery store. States she has done water exercise before, requests aquatic PT. Provides 5 day/wk care for grandchildren Prior Treatments and Tests x-rays show severe patellofemoral and medial compartment osteoarthritis bilaterally with osteophyte formation Future Testing and Treatments Planned Follow-up with Dr. Jones in 2 weeks Treatment Goals Patient/Caregiver Goals Decrease pain, improve activity tolerance, improve strength possibly in preparation for surgical intervention. Prior Functional Status Baseline Function- ADL's Independent Baseline Function- Mobility Independent Baseline Function- Gait independent, no device Current Functional Impairments (Reported) Functional Limitations- Mobility/Gait painful uses trekking poles, scooter at grocery store. Poor tolerance for community ambulation Personal Factors Other Personal Factors That May Effect Busy schedule with patient Therapy/Recovery expressing uncertainty about how to fit regular exercise into her schedule of caring for her grandchildren PT-OP-C Subjective Start: 01/19/18 14:31 Freq: Status: Active Protocol: Document 03/15/18 10:15 ALFREDA (Rec: 03/15/18 14:28 LJ [id number]) OP-PT Subjective Patient Comments Patient Comments Stated she felt looser after previous auatic therapy session PT-OP-F Manual Assessment Start: 01/19/18 14:31 Freq: Status: Active Protocol: Document 01/19/18 14:33 [facility] (Rec: 01/20/18 10:26 [facility] [id number]) Manual Assessments Soft Tissue Assessment Soft Tissue Mobility Assessment Palpable muscle tightness left quads and hamstrings PT-OP-G Mobility & Gait Start: 01/19/18 14:31 Freq: Status: Active Protocol: Document 01/19/18 14:33 [facility] (Rec: 01/20/18 10:26 [facility] [id number]) OP Mobility Evaluation Transfers Sit to Stand independent with decreased weight bearing left LE and c/o pain Floor Transfers unable Functional Movements Squats unable Running Assessment unable OP Gait Assessment Gait Gait Assistance Required: Independent Assistive Devices Assistive Device None Gait Deviations General Gait Pattern Antalgic Decreased Stride Length Decreased Feet Clearance Flexed Trunk Lateral Trunk Lean Factors Limiting Gait Function Factors Limiting Gait Function Pain Stair Climbing Evaluation Evaluation Level of Assist On Stairs Independent Technique/Endurance Stair Climbing Technique Step to Step PT-OP-K Range of Motion Start: 01/19/18 14:31 Freq: Status: Active Protocol: Document 01/19/18 14:33 [facility] (Rec: 01/20/18 10:26 [facility] [id number]) Knee Goniometric Range of Motion Knee Measured in Degrees Left Flexion Active (degrees) 70 Extension Active (degrees) 22 Right Flexion Active (degrees) 107 Extension Active (degrees) 0 Knee ROM Limitations Knee ROM Limitations Bony Restriction Pain Ankle and Foot Goniometric Range of Motion Ankle and Foot ROM Limitations Comments bilateral WFL PT-OP-M Strength Start: 01/19/18 14:31 Freq: Status: Active Protocol: Document 01/19/18 14:33 [facility] (Rec: 01/20/18 10:26 [facility] [id number]) Knee Strength Knee Manual Muscle Testing Left Flexion (S2) 4- Good- Extension (L3) 4- Good- Right Flexion (S2) 4+ Good+ Extension (L3) 4+ Good+ PT-OP-Q Treatments Start: 01/19/18 14:31 Freq: Status: Active Protocol: Document 01/19/18 14:33 [facility] (Rec: 01/19/18 16:44 [facility] [id number]) Self-Care/Home Management Treatment Education Patient Education Home Exercise Program Other Education Issued written instructions. Discussed benefits of aquatic PT. Activities Self-Care/Home Management Activities Do gentle ROM of left knee for a few reps prior to standing PT-OP-S Aquatic Treatment Start: 03/03/18 15:48 Freq: Status: Active Protocol: Document 03/15/18 10:15 ALFREDA (Rec: 03/15/18 14:28 ALFREDA [id number]) Aquatics Treatment Pool Entry/Exit Pool Entry/Exit Method Stairs Assistance Independent Water Walking forward,back, side, august, soldier august Water Level Chest Level Walking Equipment Resistance Fins Level of Assistance Standby Assistance Comments verbal cues Lower Extremity Exercises 1 Details wall squats bilat TKE Body Position Sitting Water Level Neck Level Reps/Duration 10 x 2 hip circles Body Position Standing Water Level Chest Level Reps/Duration 10x ea direction ea leg heel raises, toe raises Body Position Standing Water Level Chest Level Reps/Duration 10x [place] Activities [place] Activities Bicycle Bicycle Backwards [place] Running Hip Abduction/Adduction Other Activities corner bilat SLR Equipment small noodle Duration 20 min Comments Pt required cues and manual assistance for muscle activation sequence and stabilization Other 1 Details sit>stand on stairs Body Position Sitting Water Level Waist Level Equipment stairs Reps/Duration 10 reps Comments emphasize glute-core activation PT-OP-T Assessment and Plan Start: 01/19/18 14:31 Freq: Status: Active Protocol: Document 03/15/18 10:15 ALFREDA (Rec: 03/15/18 14:28 ALFREDA [id number]) Physical Therapy Assessment Rehab Potential Rehabilitation Potential Fair Evaluation Complexity Number of Personal Factors/Comorbidities 1-2 Number of Body Systems Impaired 3 Clinical Presentation at Evaluation Evolving Impairments Impairments Activity Tolerance Functional Mobility Gait Pain ROM Strength Other Concerns Fall Risk yes Barriers to Rehabilitation severity of arthritis Goals Five Impairment strength 4-/5 left kne Short Term Goal (STG) Patient to be independent with HEP and be able to tolerate a 45 min aquatic exercise program without increase in pain or excess fatigue STG Duration 6 wks Grades 9 Thru 12 Visiting Teacher Goal (LTG) Improve left knee strength to 4+/5 LTG Duration 3 months Three Impairment Lower extremity functional scale 46% Short Term Goal (STG) Improve LEFS to 53% STG Duration 6 wks Grades 9 Thru 12 Visiting Teacher Goal (LTG) Improve LEFS score to at least 60% LTG Duration 3 months Two Impairment gait dysfunction; antalgic Short Term Goal (STG) Instruct patient in use of appropriate assistive device STG Duration 3 wks Grades 9 Thru 12 Visiting Teacher Goal (LTG) Patient able to ambulate on level surfaces without a limp LTG Duration 3 months One Impairment pain 6/10 Assisted Goal (LTG) Decrease pain to no greater than 4/10 LTG Duration 3 months Assessment Summary Assessment Pt tolerates aquatic therapy with improvement in ROM of LEs . Able to exercise painfree as opposed to on land. Pt required mod education in core muscle activation during sit> stand on stairs and deep water corner bilat SLRs Physical Therapy Plan Frequency and Duration Frequency of Treatment 2x/Week Duration of Treatment 3 months Plan of Care Start Date 01/19/18 Plan of Care End Date 04/21/18 Therapeutic Interventions Therapeutic Interventions Aquatic Therapy Home Exercise Program Patient/Caregiver Education Self-Care/Home Management Next Visit Focus/Plan Next Note Type Treatment Note Next Visit Plan Continue to progress aquatic exercises as tolerated. Continue with core and sit> stand exercises
--- NOTE | 2018-03-22 14:38 | PT.OTN ---
Current Diagnoses Bilateral primary osteoarthritis of knee (03/15/18) Physical Therapy Treatment Note PT-OP-A Visit Information Start: 01/19/18 14:31 Freq: Status: Active Protocol: Document 03/22/18 10:15 [facility] (Rec: 03/22/18 14:38 [facility] [id number]) Out-Patient Physical Therapy Visit Information Visit Information Visit Type Treatment Note Visit Start Time 10:15 Visit Stop Time 11:00 Total Visit Minutes 45 Visit Number 5 Number of SKI TECHNICIAN Visits 2 PT-OP-B Current Condition Start: 01/19/18 14:31 Freq: Status: Active Protocol: Document 01/19/18 14:33 SAK (Rec: 01/19/18 14:44 SAK [id number]) Current Condition History of Current Condition Onset Date 15 years Current Complaints severe bilateral knee pain left greater than right History of Current Condition Reports multiple prior falls onto left LE that have caught up with me. Most difficult and painful activity is sit to stand. Uses trekking poles sometimes, states helps a lot because they keep me straight . Stair ambulation difficult , step-to pattern uses arms a lot. Uses scooter at grocery store. States she has done water exercise before, requests aquatic PT. Provides 5 day/wk care for grandchildren Prior Treatments and Tests x-rays show severe patellofemoral and medial compartment osteoarthritis bilaterally with osteophyte formation Future Testing and Treatments Planned Follow-up with Dr. Jones in 2 weeks Treatment Goals Patient/Caregiver Goals Decrease pain, improve activity tolerance, improve strength possibly in preparation for surgical intervention. Prior Functional Status Baseline Function- ADL's Independent Baseline Function- Mobility Independent Baseline Function- Gait independent, no device Current Functional Impairments (Reported) Functional Limitations- Mobility/Gait painful uses trekking poles, scooter at grocery store. Poor tolerance for community ambulation Personal Factors Other Personal Factors That May Effect Busy schedule with patient Therapy/Recovery expressing uncertainty about how to fit regular exercise into her schedule of caring for her grandchildren PT-OP-C Subjective Start: 01/19/18 14:31 Freq: Status: Active Protocol: Document 03/22/18 10:15 [facility] (Rec: 03/22/18 14:38 [facility] [id number]) OP-PT Subjective Patient Comments Patient Comments Pt stated she is enjoying aquatic therapy because she can move in the water with decreased pain. PT-OP-F Manual Assessment Start: 01/19/18 14:31 Freq: Status: Active Protocol: Document 01/19/18 14:33 [facility] (Rec: 01/20/18 10:26 [facility] [id number]) Manual Assessments Soft Tissue Assessment Soft Tissue Mobility Assessment Palpable muscle tightness left quads and hamstrings PT-OP-G Mobility & Gait Start: 01/19/18 14:31 Freq: Status: Active Protocol: Document 01/19/18 14:33 [facility] (Rec: 01/20/18 10:26 [facility] [id number]) OP Mobility Evaluation Transfers Sit to Stand independent with decreased weight bearing left LE and c/o pain Floor Transfers unable Functional Movements Squats unable Running Assessment unable OP Gait Assessment Gait Gait Assistance Required: Independent Assistive Devices Assistive Device None Gait Deviations General Gait Pattern Antalgic Decreased Stride Length Decreased Feet Clearance Flexed Trunk Lateral Trunk Lean Factors Limiting Gait Function Factors Limiting Gait Function Pain Stair Climbing Evaluation Evaluation Level of Assist On Stairs Independent Technique/Endurance Stair Climbing Technique Step to Step PT-OP-K Range of Motion Start: 01/19/18 14:31 Freq: Status: Active Protocol: Document 01/19/18 14:33 [facility] (Rec: 01/20/18 10:26 [facility] [id number]) Knee Goniometric Range of Motion Knee Measured in Degrees Left Flexion Active (degrees) 70 Extension Active (degrees) 22 Right Flexion Active (degrees) 107 Extension Active (degrees) 0 Knee ROM Limitations Knee ROM Limitations Bony Restriction Pain Ankle and Foot Goniometric Range of Motion Ankle and Foot ROM Limitations Comments bilateral WFL PT-OP-M Strength Start: 01/19/18 14:31 Freq: Status: Active Protocol: Document 01/19/18 14:33 [facility] (Rec: 01/20/18 10:26 [facility] [id number]) Knee Strength Knee Manual Muscle Testing Left Flexion (S2) 4- Good- Extension (L3) 4- Good- Right Flexion (S2) 4+ Good+ Extension (L3) 4+ Good+ PT-OP-Q Treatments Start: 01/19/18 14:31 Freq: Status: Active Protocol: Document 01/19/18 14:33 [facility] (Rec: 01/19/18 16:44 [facility] [id number]) Self-Care/Home Management Treatment Education Patient Education Home Exercise Program Other Education Issued written instructions. Discussed benefits of aquatic PT. Activities Self-Care/Home Management Activities Do gentle ROM of left knee for a few reps prior to standing PT-OP-S Aquatic Treatment Start: 03/03/18 15:48 Freq: Status: Active Protocol: Document 03/22/18 10:15 [facility] (Rec: 03/22/18 14:38 [facility] [id number]) Aquatics Treatment Pool Entry/Exit Pool Entry/Exit Method Stairs Assistance Independent Water Walking forward,back, side, august, soldier august Water Level Chest Level Walking Equipment Resistance Fins Level of Assistance Standby Assistance Comments verbal cues Lower Extremity Exercises 1 Details wall squats bilat TKE Body Position Sitting Water Level Neck Level Reps/Duration 10 x 2 hip flex/ext, ab/ad Body Position Standing Water Level Chest Level Reps/Duration 10x hip circles Body Position Standing Water Level Chest Level Reps/Duration 10x ea direction ea leg heel raises, toe raises Body Position Standing Water Level Chest Level Reps/Duration 10x [place] Activities [place] Activities Bicycle Bicycle Backwards [place] Running Hip Abduction/Adduction Other Activities corner bilat SLR Equipment small noodle Duration 20 min Comments Pt required cues and manual assistance for muscle activation sequence and stabilization PT-OP-T Assessment and Plan Start: 01/19/18 14:31 Freq: Status: Active Protocol: Document 03/22/18 10:15 [facility] (Rec: 03/22/18 14:38 [facility] [id number]) Physical Therapy Assessment Goals Five Impairment strength 4-/5 left kne Short Term Goal (STG) Patient to be independent with HEP and be able to tolerate a 45 min aquatic exercise program without increase in pain or excess fatigue STG Duration 6 wks Senior Living Goal (LTG) Improve left knee strength to 4+/5 LTG Duration 3 months Three Impairment Lower extremity functional scale 46% Short Term Goal (STG) Improve LEFS to 53% STG Duration 6 wks Babbitt Spinner Goal (LTG) Improve LEFS score to at least 60% LTG Duration 3 months Two Impairment gait dysfunction; antalgic Short Term Goal (STG) Instruct patient in use of appropriate assistive device STG Duration 3 wks Senior Living Goal (LTG) Patient able to ambulate on level surfaces without a limp LTG Duration 3 months One Impairment pain 6/10 Senior Living Goal (LTG) Decrease pain to no greater than 4/10 LTG Duration 3 months Assessment Summary Assessment Pt continues with good tolerance of aquatic therapy, pt needing fewer cues for core activation and posture. Physical Therapy Plan Frequency and Duration Frequency of Treatment 2x/Week Duration of Treatment 3 months Plan of Care Start Date 01/19/18 Plan of Care End Date 04/21/18 Next Visit Focus/Plan Next Note Type Treatment Note Next Visit Plan Continue to progress aquatic exercises as tolerated. Continue with core and sit> stand exercises
--- NOTE | 2018-04-05 14:24 | PT.OTN ---
Current Diagnoses Bilateral primary osteoarthritis of knee (04/05/18) Physical Therapy Treatment Note PT-OP-A Visit Information Start: 01/19/18 14:31 Freq: Status: Active Protocol: Document 04/05/18 10:15 CLB (Rec: 04/05/18 14:23 CLB [id number]) Out-Patient Physical Therapy Visit Information Visit Information Visit Type Treatment Note Visit Start Time 10:15 Visit Stop Time 11:00 Total Visit Minutes 45 Visit Number 6 Number of ENVIRONMENTAL SERVICE AIDE Visits 3 PT-OP-B Current Condition Start: 01/19/18 14:31 Freq: Status: Active Protocol: Document 01/19/18 14:33 SAK (Rec: 01/19/18 14:44 SAK [id number]) Current Condition History of Current Condition Onset Date 15 years Current Complaints severe bilateral knee pain left greater than right History of Current Condition Reports multiple prior falls onto left LE that have caught up with me. Most difficult and painful activity is sit to stand. Uses trekking poles sometimes, states helps a lot because they keep me straight . Stair ambulation difficult , step-to pattern uses arms a lot. Uses scooter at grocery store. States she has done water exercise before, requests aquatic PT. Provides 5 day/wk care for grandchildren Prior Treatments and Tests x-rays show severe patellofemoral and medial compartment osteoarthritis bilaterally with osteophyte formation Future Testing and Treatments Planned Follow-up with Dr. Jones in 2 weeks Treatment Goals Patient/Caregiver Goals Decrease pain, improve activity tolerance, improve strength possibly in preparation for surgical intervention. Prior Functional Status Baseline Function- ADL's Independent Baseline Function- Mobility Independent Baseline Function- Gait independent, no device Current Functional Impairments (Reported) Functional Limitations- Mobility/Gait painful uses trekking poles, scooter at grocery store. Poor tolerance for community ambulation Personal Factors Other Personal Factors That May Effect Busy schedule with patient Therapy/Recovery expressing uncertainty about how to fit regular exercise into her schedule of caring for her grandchildren PT-OP-C Subjective Start: 01/19/18 14:31 Freq: Status: Active Protocol: Document 04/05/18 10:15 CLB (Rec: 04/05/18 14:23 CLB [email or web address]) OP-PT Subjective Patient Comments Patient Comments Pt noticing less pain on land. Pt stated she is using FWW for sit-stand and walking stick when walking out in the community. PT-OP-F Manual Assessment Start: 01/19/18 14:31 Freq: Status: Active Protocol: Document 01/19/18 14:33 [facility] (Rec: 01/20/18 10:26 [facility] [id number]) Manual Assessments Soft Tissue Assessment Soft Tissue Mobility Assessment Palpable muscle tightness left quads and hamstrings PT-OP-G Mobility & Gait Start: 01/19/18 14:31 Freq: Status: Active Protocol: Document 01/19/18 14:33 [facility] (Rec: 01/20/18 10:26 [facility] [id number]) OP Mobility Evaluation Transfers Sit to Stand independent with decreased weight bearing left LE and c/o pain Floor Transfers unable Functional Movements Squats unable Running Assessment unable OP Gait Assessment Gait Gait Assistance Required: Independent Assistive Devices Assistive Device None Gait Deviations General Gait Pattern Antalgic Decreased Stride Length Decreased Feet Clearance Flexed Trunk Lateral Trunk Lean Factors Limiting Gait Function Factors Limiting Gait Function Pain Stair Climbing Evaluation Evaluation Level of Assist On Stairs Independent Technique/Endurance Stair Climbing Technique Step to Step PT-OP-K Range of Motion Start: 01/19/18 14:31 Freq: Status: Active Protocol: Document 01/19/18 14:33 [facility] (Rec: 01/20/18 10:26 [facility] [id number]) Knee Goniometric Range of Motion Knee Measured in Degrees Left Flexion Active (degrees) 70 Extension Active (degrees) 22 Right Flexion Active (degrees) 107 Extension Active (degrees) 0 Knee ROM Limitations Knee ROM Limitations Bony Restriction Pain Ankle and Foot Goniometric Range of Motion Ankle and Foot ROM Limitations Comments bilateral WFL PT-OP-M Strength Start: 01/19/18 14:31 Freq: Status: Active Protocol: Document 01/19/18 14:33 [facility] (Rec: 01/20/18 10:26 [facility] [id number]) Knee Strength Knee Manual Muscle Testing Left Flexion (S2) 4- Good- Extension (L3) 4- Good- Right Flexion (S2) 4+ Good+ Extension (L3) 4+ Good+ PT-OP-Q Treatments Start: 01/19/18 14:31 Freq: Status: Active Protocol: Document 01/19/18 14:33 [facility] (Rec: 01/19/18 16:44 [facility] [id number]) Self-Care/Home Management Treatment Education Patient Education Home Exercise Program Other Education Issued written instructions. Discussed benefits of aquatic PT. Activities Self-Care/Home Management Activities Do gentle ROM of left knee for a few reps prior to standing PT-OP-S Aquatic Treatment Start: 03/03/18 15:48 Freq: Status: Active Protocol: Document 04/05/18 10:15 CLB (Rec: 04/05/18 14:23 CLB [id number]) Aquatics Treatment Pool Entry/Exit Pool Entry/Exit Method Stairs Assistance Independent Water Walking forward,back, side, august, soldier august Water Level Chest Level Walking Equipment Resistance Fins Level of Assistance Standby Assistance Comments verbal cues Lower Extremity Exercises 1 Details wall squats bilat TKE Body Position Sitting Water Level Neck Level Reps/Duration 10 x 2 hip flex/ext, ab/ad Body Position Standing Water Level Chest Level Reps/Duration 10x hip circles Body Position Standing Water Level Chest Level Reps/Duration 10x ea direction ea leg heel raises, toe raises Body Position Standing Water Level Chest Level Reps/Duration 10x Dutton Activities Dutton Activities Bicycle Bicycle Backwards [place] Running Hip Abduction/Adduction Other Activities corner bilat SLR Equipment small noodle Duration 20 min Comments Pt required cues and manual assistance for muscle activation sequence and stabilization Other 1 Details sit>stand on table Body Position Sitting Water Level Waist Level Equipment stairs Reps/Duration 10 reps Comments emphasize glute-core activation PT-OP-T Assessment and Plan Start: 01/19/18 14:31 Freq: Status: Active Protocol: Document 04/05/18 10:15 CLB (Rec: 04/05/18 14:23 CLB [id number]) Physical Therapy Assessment Goals Five Impairment strength 4-/5 left kne Short Term Goal (STG) Patient to be independent with HEP and be able to tolerate a 45 min aquatic exercise program without increase in pain or excess fatigue STG Duration 6 wks Forensic Computer Examiner Goal (LTG) Improve left knee strength to 4+/5 LTG Duration 3 months Three Impairment Lower extremity functional scale 46% Short Term Goal (STG) Improve LEFS to 53% STG Duration 6 wks Forensic Computer Examiner Goal (LTG) Improve LEFS score to at least 60% LTG Duration 3 months Two Impairment gait dysfunction; antalgic Short Term Goal (STG) Instruct patient in use of appropriate assistive device STG Duration 3 wks Care Home Goal (LTG) Patient able to ambulate on level surfaces without a limp LTG Duration 3 months One Impairment pain 6/10 Care Home Goal (LTG) Decrease pain to no greater than 4/10 LTG Duration 3 months Assessment Summary Assessment Pt improving with all mobility with slight discomfort with squats and deep water marches, pt given cues for using pain free ROM. Physical Therapy Plan Frequency and Duration Frequency of Treatment 2x/Week Duration of Treatment 3 months Plan of Care Start Date 01/19/18 Plan of Care End Date 04/21/18 Therapeutic Interventions Therapeutic Interventions Aquatic Therapy Home Exercise Program Patient/Caregiver Education Self-Care/Home Management Next Visit Focus/Plan Next Note Type Treatment Note Next Visit Plan Continue to progress aquatic exercises as tolerated. Continue with core and sit> stand exercises
--- NOTE | 2018-04-12 14:48 | PT.OTN ---
Current Diagnoses Bilateral primary osteoarthritis of knee (04/12/18) Physical Therapy Treatment Note PT-OP-A Visit Information Start: 01/19/18 14:31 Freq: Status: Active Protocol: Document 04/12/18 10:15 CLB (Rec: 04/12/18 14:48 CLB [id number]) Out-Patient Physical Therapy Visit Information Visit Information Visit Type Treatment Note Visit Start Time 10:15 Visit Stop Time 11:00 Total Visit Minutes 45 Visit Number 6 Number of MARKETING TRAINEE Visits 4 PT-OP-B Current Condition Start: 01/19/18 14:31 Freq: Status: Active Protocol: Document 01/19/18 14:33 SAK (Rec: 01/19/18 14:44 SAK [id number]) Current Condition History of Current Condition Onset Date 15 years Current Complaints severe bilateral knee pain left greater than right History of Current Condition Reports multiple prior falls onto left LE that have caught up with me. Most difficult and painful activity is sit to stand. Uses trekking poles sometimes, states helps a lot because they keep me straight . Stair ambulation difficult , step-to pattern uses arms a lot. Uses scooter at grocery store. States she has done water exercise before, requests aquatic PT. Provides 5 day/wk care for grandchildren Prior Treatments and Tests x-rays show severe patellofemoral and medial compartment osteoarthritis bilaterally with osteophyte formation Future Testing and Treatments Planned Follow-up with Dr. Jones in 2 weeks Treatment Goals Patient/Caregiver Goals Decrease pain, improve activity tolerance, improve strength possibly in preparation for surgical intervention. Prior Functional Status Baseline Function- ADL's Independent Baseline Function- Mobility Independent Baseline Function- Gait independent, no device Current Functional Impairments (Reported) Functional Limitations- Mobility/Gait painful uses trekking poles, scooter at grocery store. Poor tolerance for community ambulation Personal Factors Other Personal Factors That May Effect Busy schedule with patient Therapy/Recovery expressing uncertainty about how to fit regular exercise into her schedule of caring for her grandchildren PT-OP-C Subjective Start: 01/19/18 14:31 Freq: Status: Active Protocol: Document 04/12/18 10:15 CLB (Rec: 04/12/18 14:48 CLB [id number]) OP-PT Subjective Patient Comments Patient Comments Pt continues to feel her RLE strength is improving. PT-OP-F Manual Assessment Start: 01/19/18 14:31 Freq: Status: Active Protocol: Document 01/19/18 14:33 [facility] (Rec: 01/20/18 10:26 [facility] [id number]) Manual Assessments Soft Tissue Assessment Soft Tissue Mobility Assessment Palpable muscle tightness left quads and hamstrings PT-OP-G Mobility & Gait Start: 01/19/18 14:31 Freq: Status: Active Protocol: Document 01/19/18 14:33 [facility] (Rec: 01/20/18 10:26 [facility] [id number]) OP Mobility Evaluation Transfers Sit to Stand independent with decreased weight bearing left LE and c/o pain Floor Transfers unable Functional Movements Squats unable Running Assessment unable OP Gait Assessment Gait Gait Assistance Required: Independent Assistive Devices Assistive Device None Gait Deviations General Gait Pattern Antalgic Decreased Stride Length Decreased Feet Clearance Flexed Trunk Lateral Trunk Lean Factors Limiting Gait Function Factors Limiting Gait Function Pain Stair Climbing Evaluation Evaluation Level of Assist On Stairs Independent Technique/Endurance Stair Climbing Technique Step to Step PT-OP-K Range of Motion Start: 01/19/18 14:31 Freq: Status: Active Protocol: Document 01/19/18 14:33 [facility] (Rec: 01/20/18 10:26 [facility] [id number]) Knee Goniometric Range of Motion Knee Measured in Degrees Left Flexion Active (degrees) 70 Extension Active (degrees) 22 Right Flexion Active (degrees) 107 Extension Active (degrees) 0 Knee ROM Limitations Knee ROM Limitations Bony Restriction Pain Ankle and Foot Goniometric Range of Motion Ankle and Foot ROM Limitations Comments bilateral WFL PT-OP-M Strength Start: 01/19/18 14:31 Freq: Status: Active Protocol: Document 01/19/18 14:33 [facility] (Rec: 01/20/18 10:26 [facility] [id number]) Knee Strength Knee Manual Muscle Testing Left Flexion (S2) 4- Good- Extension (L3) 4- Good- Right Flexion (S2) 4+ Good+ Extension (L3) 4+ Good+ PT-OP-Q Treatments Start: 01/19/18 14:31 Freq: Status: Active Protocol: Document 01/19/18 14:33 [facility] (Rec: 01/19/18 16:44 [facility] [id number]) Self-Care/Home Management Treatment Education Patient Education Home Exercise Program Other Education Issued written instructions. Discussed benefits of aquatic PT. Activities Self-Care/Home Management Activities Do gentle ROM of left knee for a few reps prior to standing PT-OP-S Aquatic Treatment Start: 03/03/18 15:48 Freq: Status: Active Protocol: Document 04/12/18 10:15 CLB (Rec: 04/12/18 14:48 CLB [id number]) Aquatics Treatment Water Walking [place] Water Level Chest Level Walking Equipment Resistance Fins Level of Assistance Standby Assistance forward,back, side, august, soldier august Water Level Chest Level Walking Equipment Resistance Fins Level of Assistance Standby Assistance Comments verbal cues Lower Extremity Exercises Carpenter Stabilization Details black dumbells Body Position Standing Water Level Carpenter Equipment Small Noodle Reps/Duration 10 each Comments cues for core emphasis and slow speed 1 Details wall squats bilat TKE Body Position Sitting Water Level Neck Level Reps/Duration 10 x 2 hip flex/ext, ab/ad Body Position Standing Water Level Chest Level Reps/Duration 10x bilaterally hip circles Body Position Standing Water Level Chest Level Reps/Duration 10x ea direction ea leg Carpenter Activities Carpenter Activities Bicycle Bicycle Backwards [place] Running Hip Abduction/Adduction Other Activities corner bilat SLR Equipment small noodle Duration 20 min Comments Pt required cues and manual assistance for muscle activation sequence and stabilization PT-OP-T Assessment and Plan Start: 01/19/18 14:31 Freq: Status: Active Protocol: Document 04/12/18 10:15 CLB (Rec: 04/12/18 14:48 CLB [id number]) Physical Therapy Assessment Goals Five Impairment strength 4-/5 left kne Short Term Goal (STG) Patient to be independent with HEP and be able to tolerate a 45 min aquatic exercise program without increase in pain or excess fatigue STG Duration 6 wks Business Partner Goal (LTG) Improve left knee strength to 4+/5 LTG Duration 3 months Three Impairment Lower extremity functional scale 46% Short Term Goal (STG) Improve LEFS to 53% STG Duration 6 wks Business Partner Goal (LTG) Improve LEFS score to at least 60% LTG Duration 3 months Two Impairment gait dysfunction; antalgic Short Term Goal (STG) Instruct patient in use of appropriate assistive device STG Duration 3 wks Prison Goal (LTG) Patient able to ambulate on level surfaces without a limp LTG Duration 3 months One Impairment pain 6/10 Prison Goal (LTG) Decrease pain to no greater than 4/10 LTG Duration 3 months Assessment Summary Assessment Pt tolerating increased core stabilization exercises but continues to c/o left knee pain with flx and ext. Physical Therapy Plan Frequency and Duration Frequency of Treatment 2x/Week Duration of Treatment 3 months Plan of Care Start Date 01/19/18 Plan of Care End Date 04/21/18 Next Visit Focus/Plan Next Note Type Treatment Note Next Visit Plan Continue to progress aquatic exercises as tolerated. Continue with core exercises
--- NOTE | 2018-04-19 17:01 | PT.OTRE ---
Current Diagnoses Bilateral primary osteoarthritis of knee (04/19/18) Provider Visit Care Team Role Provider Type Sriram Badillo MD Family Provider Physician Primary Care Provider Specialty: Internal Medicine Address: [address] [place] [address], [id number] Email: Aisha Jones MD Attending Provider Physician Specialty: Orthopedic Surgery Address: [address] [place] [address], [id number] Email: [email or web address] Physical Therapy Re-Evaluation PT-OP-A Visit Information Start: 01/19/18 14:31 Freq: Status: Active Protocol: Document 04/19/18 16:46 SAK (Rec: 04/19/18 16:58 SAK [id number]) Out-Patient Physical Therapy Visit Information Visit Information Visit Type Re-Evaluation Visit Start Time 10:15 Visit Stop Time 11:00 Total Visit Minutes 45 Visit Number 8 Number of TRANSITION MGR Visits 0 PT-OP-B Current Condition Start: 01/19/18 14:31 Freq: Status: Active Protocol: Document 01/19/18 14:33 SAK (Rec: 01/19/18 14:44 SAK [id number]) Current Condition History of Current Condition Onset Date 15 years Current Complaints severe bilateral knee pain left greater than right History of Current Condition Reports multiple prior falls onto left LE that have caught up with me. Most difficult and painful activity is sit to stand. Uses trekking poles sometimes, states helps a lot because they keep me straight . Stair ambulation difficult , step-to pattern uses arms a lot. Uses scooter at grocery store. States she has done water exercise before, requests aquatic PT. Provides 5 day/wk care for grandchildren Prior Treatments and Tests x-rays show severe patellofemoral and medial compartment osteoarthritis bilaterally with osteophyte formation Future Testing and Treatments Planned Follow-up with Dr. Jones in 2 weeks Treatment Goals Patient/Caregiver Goals Decrease pain, improve activity tolerance, improve strength possibly in preparation for surgical intervention. Prior Functional Status Baseline Function- ADL's Independent Baseline Function- Mobility Independent Baseline Function- Gait independent, no device Current Functional Impairments (Reported) Functional Limitations- Mobility/Gait painful uses trekking poles, scooter at grocery store. Poor tolerance for community ambulation Personal Factors Other Personal Factors That May Effect Busy schedule with patient Therapy/Recovery expressing uncertainty about how to fit regular exercise into her schedule of caring for her grandchildren PT-OP-C Subjective Start: 01/19/18 14:31 Freq: Status: Active Protocol: Document 04/19/18 16:46 SAK (Rec: 04/19/18 16:58 [facility] [id number]) OP-PT Subjective Patient Comments Patient Comments Reports pain much better than when she started, feels aquatic therapy really helping her. Has difficulty finding the time to try to come on her own to do aquatic exercise as encouraged. Patient Reported Progress Improving OP-PT Pain Assessment Pain Assessment Grid Paper Pain Assessment Grid Completed Yes Location Bilateral Knee Intensity 4 PT-OP-F Manual Assessment Start: 01/19/18 14:31 Freq: Status: Active Protocol: Document 01/19/18 14:33 [facility] (Rec: 01/20/18 10:26 [facility] [id number]) Manual Assessments Soft Tissue Assessment Soft Tissue Mobility Assessment Palpable muscle tightness left quads and hamstrings PT-OP-G Mobility & Gait Start: 01/19/18 14:31 Freq: Status: Active Protocol: Document 01/19/18 14:33 [facility] (Rec: 01/20/18 10:26 [facility] [id number]) OP Mobility Evaluation Transfers Sit to Stand independent with decreased weight bearing left LE and c/o pain Floor Transfers unable Functional Movements Squats unable Running Assessment unable OP Gait Assessment Gait Gait Assistance Required: Independent Assistive Devices Assistive Device None Gait Deviations General Gait Pattern Antalgic Decreased Stride Length Decreased Feet Clearance Flexed Trunk Lateral Trunk Lean Factors Limiting Gait Function Factors Limiting Gait Function Pain Stair Climbing Evaluation Evaluation Level of Assist On Stairs Independent Technique/Endurance Stair Climbing Technique Step to Step PT-OP-K Range of Motion Start: 01/19/18 14:31 Freq: Status: Active Protocol: Document 01/19/18 14:33 [facility] (Rec: 01/20/18 10:26 [facility] [id number]) Knee Goniometric Range of Motion Knee Measured in Degrees Left Flexion Active (degrees) 70 Extension Active (degrees) 22 Right Flexion Active (degrees) 107 Extension Active (degrees) 0 Knee ROM Limitations Knee ROM Limitations Bony Restriction Pain Ankle and Foot Goniometric Range of Motion Ankle and Foot ROM Limitations Comments bilateral WFL PT-OP-M Strength Start: 01/19/18 14:31 Freq: Status: Active Protocol: Document 01/19/18 14:33 [facility] (Rec: 01/20/18 10:26 [facility] [id number]) Knee Strength Knee Manual Muscle Testing Left Flexion (S2) 4- Good- Extension (L3) 4- Good- Right Flexion (S2) 4+ Good+ Extension (L3) 4+ Good+ PT-OP-Q Treatments Start: 01/19/18 14:31 Freq: Status: Active Protocol: Document 01/19/18 14:33 [facility] (Rec: 01/19/18 16:44 [facility] [id number]) Self-Care/Home Management Treatment Education Patient Education Home Exercise Program Other Education Issued written instructions. Discussed benefits of aquatic PT. Activities Self-Care/Home Management Activities Do gentle ROM of left knee for a few reps prior to standing PT-OP-T Assessment and Plan Start: 01/19/18 14:31 Freq: Status: Active Protocol: Document 04/19/18 16:46 [facility] (Rec: 04/19/18 16:58 [facility] [id number]) Physical Therapy Assessment Goals Five Impairment strength 4-/5 left kne Short Term Goal (STG) Patient to be independent with HEP and be able to tolerate a 45 min aquatic exercise program without increase in pain or excess fatigue (good goal progress) STG Duration 6 wks Medical Scientist Goal (LTG) Improve left knee strength to 4+/5 (goal progress) LTG Duration 2 months Three Impairment Lower extremity functional scale 46% Short Term Goal (STG) Improve LEFS to 53% (some goal progress) STG Duration 6 wks Fdc Goal (LTG) Improve LEFS score to at least 60% LTG Duration 2 months Two Impairment gait dysfunction; antalgic Short Term Goal (STG) Instruct patient in use of appropriate assistive device ( goal achieved) Fdc Goal (LTG) Patient able to ambulate on level surfaces without a limp (goal progress) LTG Duration 2 months One Impairment pain 6/10 Fdc Goal (LTG) Decrease pain to no greater than 4/10 (achieved) LTG Duration 2 months Assessment Summary Assessment Overall patient reporting a decrease in pain and improving function. Left knee ROM remains severely limited and painful. Has attended 8 physical therapy appointments. Has been encouraged to do water walking in between PT appointments but so far has not worked into her schedule; she would benefit from more frequent aquatic exercise but scheduling issues haven't allowed that so far. Would benefit from further PT to fully achieve above goals. Physical Therapy Plan Frequency and Duration Frequency of Treatment 2x/Week Duration of Treatment 2 months Plan of Care Start Date 04/19/18 Plan of Care End Date 06/19/18 Therapeutic Interventions Therapeutic Interventions Aquatic Therapy Home Exercise Program Patient/Caregiver Education Self-Care/Home Management Next Visit Focus/Plan Next Note Type Treatment Note Next Visit Plan Continue aquatic PT to improve strength and function, decrease pain. Encourage patient to do aquatic exercises in between therapy appointments, transition to independent aquatic exercise program/community exercise program.
--- NOTE | 2018-04-19 17:02 | PT.OPPOC ---
Current Diagnoses Bilateral primary osteoarthritis of knee (04/19/18) Provider Visit Care Team Role Provider Type Sriram Badillo MD Family Provider Physician Primary Care Provider Specialty: Internal Medicine Address: [address] [place] [address], [id number] Email: Aisha Jones MD Attending Provider Physician Specialty: Orthopedic Surgery Address: [address] [place] [address], [id number] Email: [email or web address] Plan Of Care PT-OP-T Assessment and Plan Start: 01/19/18 14:31 Freq: Status: Active Protocol: Document 04/19/18 16:46 [facility] (Rec: 04/19/18 16:58 [facility] [id number]) Physical Therapy Assessment Goals Five Impairment strength 4-/5 left kne Short Term Goal (STG) Patient to be independent with HEP and be able to tolerate a 45 min aquatic exercise program without increase in pain or excess fatigue (good goal progress) STG Duration 6 wks Care Home Goal (LTG) Improve left knee strength to 4+/5 (goal progress) LTG Duration 2 months Three Impairment Lower extremity functional scale 46% Short Term Goal (STG) Improve LEFS to 53% (some goal progress) STG Duration 6 wks Care Home Goal (LTG) Improve LEFS score to at least 60% LTG Duration 2 months Two Impairment gait dysfunction; antalgic Short Term Goal (STG) Instruct patient in use of appropriate assistive device ( goal achieved) Exchange Floor Manager Goal (LTG) Patient able to ambulate on level surfaces without a limp (goal progress) LTG Duration 2 months One Impairment pain 6/10 Care Home Goal (LTG) Decrease pain to no greater than 4/10 (achieved) LTG Duration 2 months Assessment Summary Assessment Overall patient reporting a decrease in pain and improving function. Left knee ROM remains severely limited and painful. Has attended 8 physical therapy appointments. Has been encouraged to do water walking in between PT appointments but so far has not worked into her schedule; she would benefit from more frequent aquatic exercise but scheduling issues haven't allowed that so far. Would benefit from further PT to fully achieve above goals. Physical Therapy Plan Frequency and Duration Frequency of Treatment 2x/Week Duration of Treatment 2 months Plan of Care Start Date 04/19/18 Plan of Care End Date 06/19/18 Therapeutic Interventions Therapeutic Interventions Aquatic Therapy Home Exercise Program Patient/Caregiver Education Self-Care/Home Management Next Visit Focus/Plan Next Note Type Treatment Note Next Visit Plan Continue aquatic PT to improve strength and function, decrease pain. Encourage patient to do aquatic exercises in between therapy appointments, transition to independent aquatic exercise program/community exercise program. Plan of Care Dates Plan of Care Start Date 04/19/18 Plan of Care End Date 06/19/18 Please Sign and Return: I have reviewed this Plan of Care and certify that the skilled therapy services above are required to meet the patient?s needs. Physician Signature Date Printed Name and Credentials Clinical Instructor Signature Printed Name and Credentials
--- NOTE | 2018-04-26 16:41 | PT.OTN ---
Current Diagnoses Bilateral primary osteoarthritis of knee (04/26/18) Physical Therapy Treatment Note PT-OP-A Visit Information Start: 01/19/18 14:31 Freq: Status: Active Protocol: Document 04/26/18 10:15 [facility] (Rec: 04/26/18 16:41 [facility] [id number]) Out-Patient Physical Therapy Visit Information Visit Information Visit Type Aquatic Treatment Note Visit Start Time 10:15 Visit Stop Time 11:00 Total Visit Minutes 45 Visit Number 8 Number of AUDIT INTERN Visits 0 Evaluation Information Evaluation Date 01/19/18 PT-OP-B Current Condition Start: 01/19/18 14:31 Freq: Status: Active Protocol: Document 01/19/18 14:33 [facility] (Rec: 01/19/18 14:44 [facility] [id number]) Current Condition History of Current Condition Onset Date 15 years Current Complaints severe bilateral knee pain left greater than right History of Current Condition Reports multiple prior falls onto left LE that have caught up with me. Most difficult and painful activity is sit to stand. Uses trekking poles sometimes, states helps a lot because they keep me straight . Stair ambulation difficult , step-to pattern uses arms a lot. Uses scooter at grocery store. States she has done water exercise before, requests aquatic PT. Provides 5 day/wk care for grandchildren Prior Treatments and Tests x-rays show severe patellofemoral and medial compartment osteoarthritis bilaterally with osteophyte formation Future Testing and Treatments Planned Follow-up with Dr. Jones in 2 weeks Treatment Goals Patient/Caregiver Goals Decrease pain, improve activity tolerance, improve strength possibly in preparation for surgical intervention. Prior Functional Status Baseline Function- ADL's Independent Baseline Function- Mobility Independent Baseline Function- Gait independent, no device Current Functional Impairments (Reported) Functional Limitations- Mobility/Gait painful uses trekking poles, scooter at grocery store. Poor tolerance for community ambulation Personal Factors Other Personal Factors That May Effect Busy schedule with patient Therapy/Recovery expressing uncertainty about how to fit regular exercise into her schedule of caring for her grandchildren PT-OP-C Subjective Start: 01/19/18 14:31 Freq: Status: Active Protocol: Document 04/26/18 10:15 [facility] (Rec: 04/26/18 16:41 [facility] [id number]) OP-PT Subjective Patient Comments Patient Comments Found out her insurance has [employer] program so she plans to start trying to to to pool on own in between PT visits. Anticipating possible TKA in June. PT-OP-F Manual Assessment Start: 01/19/18 14:31 Freq: Status: Active Protocol: Document 01/19/18 14:33 [facility] (Rec: 01/20/18 10:26 [facility] [id number]) Manual Assessments Soft Tissue Assessment Soft Tissue Mobility Assessment Palpable muscle tightness left quads and hamstrings PT-OP-G Mobility & Gait Start: 01/19/18 14:31 Freq: Status: Active Protocol: Document 01/19/18 14:33 [facility] (Rec: 01/20/18 10:26 [facility] [id number]) OP Mobility Evaluation Transfers Sit to Stand independent with decreased weight bearing left LE and c/o pain Floor Transfers unable Functional Movements Squats unable Running Assessment unable OP Gait Assessment Gait Gait Assistance Required: Independent Assistive Devices Assistive Device None Gait Deviations General Gait Pattern Antalgic Decreased Stride Length Decreased Feet Clearance Flexed Trunk Lateral Trunk Lean Factors Limiting Gait Function Factors Limiting Gait Function Pain Stair Climbing Evaluation Evaluation Level of Assist On Stairs Independent Technique/Endurance Stair Climbing Technique Step to Step PT-OP-K Range of Motion Start: 01/19/18 14:31 Freq: Status: Active Protocol: Document 01/19/18 14:33 [facility] (Rec: 01/20/18 10:26 [facility] [id number]) Knee Goniometric Range of Motion Knee Measured in Degrees Left Flexion Active (degrees) 70 Extension Active (degrees) 22 Right Flexion Active (degrees) 107 Extension Active (degrees) 0 Knee ROM Limitations Knee ROM Limitations Bony Restriction Pain Ankle and Foot Goniometric Range of Motion Ankle and Foot ROM Limitations Comments bilateral WFL PT-OP-M Strength Start: 01/19/18 14:31 Freq: Status: Active Protocol: Document 01/19/18 14:33 [facility] (Rec: 01/20/18 10:26 [facility] [id number]) Knee Strength Knee Manual Muscle Testing Left Flexion (S2) 4- Good- Extension (L3) 4- Good- Right Flexion (S2) 4+ Good+ Extension (L3) 4+ Good+ PT-OP-Q Treatments Start: 01/19/18 14:31 Freq: Status: Active Protocol: Document 01/19/18 14:33 [facility] (Rec: 01/19/18 16:44 [facility] [id number]) Self-Care/Home Management Treatment Education Patient Education Home Exercise Program Other Education Issued written instructions. Discussed benefits of aquatic PT. Activities Self-Care/Home Management Activities Do gentle ROM of left knee for a few reps prior to standing PT-OP-S Aquatic Treatment Start: 03/03/18 15:48 Freq: Status: Active Protocol: Document 04/26/18 10:15 [facility] (Rec: 04/26/18 16:41 [facility] [id number]) Aquatics Treatment Pool Entry/Exit Pool Entry/Exit Method Stairs Assistance Independent Water Walking forward,back, side, august, soldier august Water Level Chest Level Walking Equipment Resistance Fins Level of Assistance Standby Assistance Comments verbal cues Lower Extremity Exercises hip flex/ext, ab/ad Body Position Standing Water Level Chest Level Reps/Duration 10x bilaterally hip circles Body Position Standing Water Level Chest Level Reps/Duration 10x ea direction ea leg heel raises, toe raises Body Position Standing Water Level Chest Level Reps/Duration 10x Lower Extremity Stretches hamstring Equipment small ankle float Reps/Duration 2 heelcord Details wall Reps/Duration 2 Upper Extremity Exercises UE pull downs Equipment med barbells Reps/Duration 10x ea Comments emphasis on core and LE stabilization hor ab/ad, flex/ext Body Position Standing Water Level Chest Level Equipment UE paddles Reps/Duration 10x ea prabha and unil Comments emphasis on core and LE stabilization [place] Activities [place] Activities Bicycle Cross Country Running Hip Abduction/Adduction Other Activities small resistance fins Equipment small noodle Duration 20 min Comments Patient tolerates minimal bend of left knee, unable to tolerate backward bicycle today PT-OP-T Assessment and Plan Start: 01/19/18 14:31 Freq: Status: Active Protocol: Document 04/26/18 10:15 [facility] (Rec: 04/26/18 16:41 [facility] [id number]) Physical Therapy Assessment Goals Five Impairment strength 4-/5 left kne Short Term Goal (STG) Patient to be independent with HEP and be able to tolerate a 45 min aquatic exercise program without increase in pain or excess fatigue (good goal progress) STG Duration 6 wks Correction Goal (LTG) Improve left knee strength to 4+/5 (goal progress) LTG Duration 2 months Three Impairment Lower extremity functional scale 46% Short Term Goal (STG) Improve LEFS to 53% (some goal progress) STG Duration 6 wks Production Quality Analyst Goal (LTG) Improve LEFS score to at least 60% LTG Duration 2 months Two Impairment gait dysfunction; antalgic Short Term Goal (STG) Instruct patient in use of appropriate assistive device ( goal achieved) Correction Goal (LTG) Patient able to ambulate on level surfaces without a limp (goal progress) LTG Duration 2 months One Impairment pain 6/10 Correction Goal (LTG) Decrease pain to no greater than 4/10 (achieved) LTG Duration 2 months Assessment Summary Assessment Good progress with ther ex, still tolerates land-based ex poorly but able to progress with aquatic ex and overall less knee pain. Highly motivated. Physical Therapy Plan Frequency and Duration Frequency of Treatment 2x/Week Duration of Treatment 2 months Plan of Care Start Date 04/19/18 Plan of Care End Date 06/19/18 Therapeutic Interventions Therapeutic Interventions Aquatic Therapy Home Exercise Program Patient/Caregiver Education Self-Care/Home Management Next Visit Focus/Plan Next Note Type Treatment Note Next Visit Plan Progression of aquatic ex as tolerated. Transition toward independent aquatic exercise program.
--- NOTE | 2018-05-03 14:41 | PT.OTN ---
Current Diagnoses Bilateral primary osteoarthritis of knee (04/26/18) Physical Therapy Treatment Note PT-OP-A Visit Information Start: 01/19/18 14:31 Freq: Status: Active Protocol: Document 05/03/18 14:25 [facility] (Rec: 05/03/18 14:41 [facility] [id number]) Out-Patient Physical Therapy Visit Information Visit Information Visit Type Aquatic Treatment Note Visit Start Time 10:15 Visit Stop Time 11:00 Total Visit Minutes 45 Visit Number 9 Number of CHAINSTITCH HEMMER Visits 1 PT-OP-B Current Condition Start: 01/19/18 14:31 Freq: Status: Active Protocol: Document 01/19/18 14:33 [facility] (Rec: 01/19/18 14:44 [facility] [id number]) Current Condition History of Current Condition Onset Date 15 years Current Complaints severe bilateral knee pain left greater than right History of Current Condition Reports multiple prior falls onto left LE that have caught up with me. Most difficult and painful activity is sit to stand. Uses trekking poles sometimes, states helps a lot because they keep me straight . Stair ambulation difficult , step-to pattern uses arms a lot. Uses scooter at grocery store. States she has done water exercise before, requests aquatic PT. Provides 5 day/wk care for grandchildren Prior Treatments and Tests x-rays show severe patellofemoral and medial compartment osteoarthritis bilaterally with osteophyte formation Future Testing and Treatments Planned Follow-up with Dr. Jones in 2 weeks Treatment Goals Patient/Caregiver Goals Decrease pain, improve activity tolerance, improve strength possibly in preparation for surgical intervention. Prior Functional Status Baseline Function- ADL's Independent Baseline Function- Mobility Independent Baseline Function- Gait independent, no device Current Functional Impairments (Reported) Functional Limitations- Mobility/Gait painful uses trekking poles, scooter at grocery store. Poor tolerance for community ambulation Personal Factors Other Personal Factors That May Effect Busy schedule with patient Therapy/Recovery expressing uncertainty about how to fit regular exercise into her schedule of caring for her grandchildren PT-OP-C Subjective Start: 01/19/18 14:31 Freq: Status: Active Protocol: Document 05/03/18 14:25 [facility] (Rec: 05/03/18 14:41 [facility] [id number]) OP-PT Subjective Patient Comments Patient Comments Pt states she is having pain in left knee with WB. PT-OP-F Manual Assessment Start: 01/19/18 14:31 Freq: Status: Active Protocol: Document 01/19/18 14:33 [facility] (Rec: 01/20/18 10:26 [facility] [id number]) Manual Assessments Soft Tissue Assessment Soft Tissue Mobility Assessment Palpable muscle tightness left quads and hamstrings PT-OP-G Mobility & Gait Start: 01/19/18 14:31 Freq: Status: Active Protocol: Document 01/19/18 14:33 [facility] (Rec: 01/20/18 10:26 [facility] [id number]) OP Mobility Evaluation Transfers Sit to Stand independent with decreased weight bearing left LE and c/o pain Floor Transfers unable Functional Movements Squats unable Running Assessment unable OP Gait Assessment Gait Gait Assistance Required: Independent Assistive Devices Assistive Device None Gait Deviations General Gait Pattern Antalgic Decreased Stride Length Decreased Feet Clearance Flexed Trunk Lateral Trunk Lean Factors Limiting Gait Function Factors Limiting Gait Function Pain Stair Climbing Evaluation Evaluation Level of Assist On Stairs Independent Technique/Endurance Stair Climbing Technique Step to Step PT-OP-K Range of Motion Start: 01/19/18 14:31 Freq: Status: Active Protocol: Document 01/19/18 14:33 [facility] (Rec: 01/20/18 10:26 [facility] [id number]) Knee Goniometric Range of Motion Knee Measured in Degrees Left Flexion Active (degrees) 70 Extension Active (degrees) 22 Right Flexion Active (degrees) 107 Extension Active (degrees) 0 Knee ROM Limitations Knee ROM Limitations Bony Restriction Pain Ankle and Foot Goniometric Range of Motion Ankle and Foot ROM Limitations Comments bilateral WFL PT-OP-M Strength Start: 01/19/18 14:31 Freq: Status: Active Protocol: Document 01/19/18 14:33 [facility] (Rec: 01/20/18 10:26 [facility] [id number]) Knee Strength Knee Manual Muscle Testing Left Flexion (S2) 4- Good- Extension (L3) 4- Good- Right Flexion (S2) 4+ Good+ Extension (L3) 4+ Good+ PT-OP-Q Treatments Start: 01/19/18 14:31 Freq: Status: Active Protocol: Document 01/19/18 14:33 [facility] (Rec: 01/19/18 16:44 [facility] [id number]) Self-Care/Home Management Treatment Education Patient Education Home Exercise Program Other Education Issued written instructions. Discussed benefits of aquatic PT. Activities Self-Care/Home Management Activities Do gentle ROM of left knee for a few reps prior to standing PT-OP-S Aquatic Treatment Start: 03/03/18 15:48 Freq: Status: Active Protocol: Document 05/03/18 14:25 [facility] (Rec: 05/03/18 14:41 [facility] [id number]) Aquatics Treatment Pool Entry/Exit Pool Entry/Exit Method Stairs Assistance Independent Water Walking forward,back, side, august, soldaugust Water Level Chest Level Walking Equipment Resistance Fins Level of Assistance Standby Assistance Comments verbal cues Lower Extremity Exercises [place] Stabilization Details black dumbells Body Position Standing Water Level [place] Equipment Small Noodle Reps/Duration 10 each Comments cues for core emphesis and slow speed hip flex/ext, ab/ad Body Position Standing Water Level Chest Level Reps/Duration 10x bilaterally hip circles Body Position Standing Water Level Chest Level Reps/Duration 10x ea direction ea leg heel raises, toe raises Body Position Standing Water Level Chest Level Reps/Duration 10x Lower Extremity Stretches hamstring Equipment small ankle float Reps/Duration 2 Upper Extremity Exercises UE pull downs Equipment med barbells Reps/Duration 10x ea Comments emphasis on core and LE stabilization hor ab/ad, flex/ext Body Position Standing Water Level Chest Level Equipment UE paddles Reps/Duration 10x ea prabha and unil Comments emphasis on core and LE stabilization [place] Activities [place] Activities Bicycle Cross [place] Running Hip Abduction/Adduction Other Activities small resistance fins Equipment small noodle Duration 20 min PT-OP-T Assessment and Plan Start: 01/19/18 14:31 Freq: Status: Active Protocol: Document 05/03/18 14:25 [facility] (Rec: 05/03/18 14:41 [facility] [id number]) Physical Therapy Assessment Goals Five Impairment strength 4-/5 left kne Short Term Goal (STG) Patient to be independent with HEP and be able to tolerate a 45 min aquatic exercise program without increase in pain or excess fatigue (good goal progress) STG Duration 6 wks Sports Medicine Specialist Goal (LTG) Improve left knee strength to 4+/5 (goal progress) LTG Duration 2 months Three Impairment Lower extremity functional scale 46% Short Term Goal (STG) Improve LEFS to 53% (some goal progress) STG Duration 6 wks Senior Care Goal (LTG) Improve LEFS score to at least 60% LTG Duration 2 months Two Impairment gait dysfunction; antalgic Short Term Goal (STG) Instruct patient in use of appropriate assistive device ( goal achieved) Senior Care Goal (LTG) Patient able to ambulate on level surfaces without a limp (goal progress) LTG Duration 2 months One Impairment pain 6/10 Senior Care Goal (LTG) Decrease pain to no greater than 4/10 (achieved) LTG Duration 2 months Assessment Summary Assessment Pt continues to progress with aquatic therapy tolerating all activites with minimal pain in left knee. Physical Therapy Plan Frequency and Duration Frequency of Treatment 2x/Week Duration of Treatment 2 months Plan of Care Start Date 04/19/18 Plan of Care End Date 06/19/18 Therapeutic Interventions Therapeutic Interventions Aquatic Therapy Home Exercise Program Patient/Caregiver Education Self-Care/Home Management Next Visit Focus/Plan Next Note Type Treatment Note Next Visit Plan Progression of aquatic ex as tolerated. Transition toward independent aquatic exercise program.
--- NOTE | 2018-05-10 15:00 | PT.OTN ---
Current Diagnoses Bilateral primary osteoarthritis of knee (05/10/18) Physical Therapy Treatment Note PT-OP-A Visit Information Start: 01/19/18 14:31 Freq: Status: Active Protocol: Document 05/10/18 10:15 CLB (Rec: 05/10/18 14:59 CLB [id number]) Out-Patient Physical Therapy Visit Information Visit Information Visit Type Aquatic Treatment Note Visit Start Time 10:15 Visit Stop Time 11:00 Total Visit Minutes 45 Visit Number 10 Number of CHILDREN'S PROGRAM COORDINATOR Visits 2 Evaluation Information Evaluation Date 01/19/18 PT-OP-B Current Condition Start: 01/19/18 14:31 Freq: Status: Active Protocol: Document 01/19/18 14:33 SAK (Rec: 01/19/18 14:44 SAK [id number]) Current Condition History of Current Condition Onset Date 15 years Current Complaints severe bilateral knee pain left greater than right History of Current Condition Reports multiple prior falls onto left LE that have caught up with me. Most difficult and painful activity is sit to stand. Uses trekking poles sometimes, states helps a lot because they keep me straight . Stair ambulation difficult , step-to pattern uses arms a lot. Uses scooter at grocery store. States she has done water exercise before, requests aquatic PT. Provides 5 day/wk care for grandchildren Prior Treatments and Tests x-rays show severe patellofemoral and medial compartment osteoarthritis bilaterally with osteophyte formation Future Testing and Treatments Planned Follow-up with Dr. Jones in 2 weeks Treatment Goals Patient/Caregiver Goals Decrease pain, improve activity tolerance, improve strength possibly in preparation for surgical intervention. Prior Functional Status Baseline Function- ADL's Independent Baseline Function- Mobility Independent Baseline Function- Gait independent, no device Current Functional Impairments (Reported) Functional Limitations- Mobility/Gait painful uses trekking poles, scooter at grocery store. Poor tolerance for community ambulation Personal Factors Other Personal Factors That May Effect Busy schedule with patient Therapy/Recovery expressing uncertainty about how to fit regular exercise into her schedule of caring for her grandchildren PT-OP-C Subjective Start: 01/19/18 14:31 Freq: Status: Active Protocol: Document 05/10/18 10:15 CLB (Rec: 05/10/18 14:59 CLB [id number]) OP-PT Subjective Patient Comments Patient Comments Pt stated her sons are on board to assist her if she has knee replacement. PT-OP-F Manual Assessment Start: 01/19/18 14:31 Freq: Status: Active Protocol: Document 01/19/18 14:33 [facility] (Rec: 01/20/18 10:26 [facility] [id number]) Manual Assessments Soft Tissue Assessment Soft Tissue Mobility Assessment Palpable muscle tightness left quads and hamstrings PT-OP-G Mobility & Gait Start: 01/19/18 14:31 Freq: Status: Active Protocol: Document 01/19/18 14:33 [facility] (Rec: 01/20/18 10:26 [facility] [id number]) OP Mobility Evaluation Transfers Sit to Stand independent with decreased weight bearing left LE and c/o pain Floor Transfers unable Functional Movements Squats unable Running Assessment unable OP Gait Assessment Gait Gait Assistance Required: Independent Assistive Devices Assistive Device None Gait Deviations General Gait Pattern Antalgic Decreased Stride Length Decreased Feet Clearance Flexed Trunk Lateral Trunk Lean Factors Limiting Gait Function Factors Limiting Gait Function Pain Stair Climbing Evaluation Evaluation Level of Assist On Stairs Independent Technique/Endurance Stair Climbing Technique Step to Step PT-OP-K Range of Motion Start: 01/19/18 14:31 Freq: Status: Active Protocol: Document 01/19/18 14:33 [facility] (Rec: 01/20/18 10:26 [facility] [id number]) Knee Goniometric Range of Motion Knee Measured in Degrees Left Flexion Active (degrees) 70 Extension Active (degrees) 22 Right Flexion Active (degrees) 107 Extension Active (degrees) 0 Knee ROM Limitations Knee ROM Limitations Bony Restriction Pain Ankle and Foot Goniometric Range of Motion Ankle and Foot ROM Limitations Comments bilateral WFL PT-OP-M Strength Start: 01/19/18 14:31 Freq: Status: Active Protocol: Document 01/19/18 14:33 [facility] (Rec: 01/20/18 10:26 [facility] [id number]) Knee Strength Knee Manual Muscle Testing Left Flexion (S2) 4- Good- Extension (L3) 4- Good- Right Flexion (S2) 4+ Good+ Extension (L3) 4+ Good+ PT-OP-Q Treatments Start: 01/19/18 14:31 Freq: Status: Active Protocol: Document 01/19/18 14:33 [facility] (Rec: 01/19/18 16:44 [facility] [id number]) Self-Care/Home Management Treatment Education Patient Education Home Exercise Program Other Education Issued written instructions. Discussed benefits of aquatic PT. Activities Self-Care/Home Management Activities Do gentle ROM of left knee for a few reps prior to standing PT-OP-S Aquatic Treatment Start: 03/03/18 15:48 Freq: Status: Active Protocol: Document 05/10/18 10:15 CLB (Rec: 05/10/18 14:59 CLB [id number]) Aquatics Treatment Pool Entry/Exit Pool Entry/Exit Method Stairs Assistance Independent Water Walking forward,back, side, august, soldier august Water Level Chest Level Walking Equipment Resistance Fins Level of Assistance Standby Assistance Comments verbal cues Lower Extremity Exercises [place] Stabilization Details black dumbells Body Position Standing Water Level [place] Reps/Duration 10 each Comments cues for core emphesis and slow speed hip flex/ext, ab/ad Body Position Standing Water Level Chest Level Reps/Duration 10x bilaterally hip circles Body Position Standing Water Level Chest Level Reps/Duration 10x ea direction ea leg heel raises, toe raises Body Position Standing Water Level Chest Level Reps/Duration 10x Lower Extremity Stretches hamstring Equipment small ankle float Reps/Duration 2 heelcord Details wall Reps/Duration 2 Upper Extremity Exercises UE pull downs Equipment med barbells Reps/Duration 10x ea Comments emphasis on core and LE stabilization hor ab/ad, flex/ext Body Position Standing Water Level Chest Level Equipment UE paddles Reps/Duration 10x ea prabha and unil Comments emphasis on core and LE stabilization [place] Activities [place] Activities Bicycle Cross Country Running Hip Abduction/Adduction Other Activities large resistance fins Equipment small noodle Duration 20 min PT-OP-T Assessment and Plan Start: 01/19/18 14:31 Freq: Status: Active Protocol: Document 05/10/18 10:15 CLB (Rec: 05/10/18 14:59 CLB [id number]) Physical Therapy Assessment Goals Five Impairment strength 4-/5 left kne Short Term Goal (STG) Patient to be independent with HEP and be able to tolerate a 45 min aquatic exercise program without increase in pain or excess fatigue (good goal progress) STG Duration 6 wks Group Home Goal (LTG) Improve left knee strength to 4+/5 (goal progress) LTG Duration 2 months Three Impairment Lower extremity functional scale 46% Short Term Goal (STG) Improve LEFS to 53% (some goal progress) STG Duration 6 wks Group Home Goal (LTG) Improve LEFS score to at least 60% LTG Duration 2 months Two Impairment gait dysfunction; antalgic Short Term Goal (STG) Instruct patient in use of appropriate assistive device ( goal achieved) Group Home Goal (LTG) Patient able to ambulate on level surfaces without a limp (goal progress) LTG Duration 2 months One Impairment pain 6/10 Finished Metal Repairer Goal (LTG) Decrease pain to no greater than 4/10 (achieved) LTG Duration 2 months Assessment Summary Assessment Pt with improved posture with deep water activities. Physical Therapy Plan Frequency and Duration Frequency of Treatment 2x/Week Duration of Treatment 2 months Plan of Care Start Date 04/19/18 Plan of Care End Date 06/19/18 Next Visit Focus/Plan Next Visit Plan Progression of aquatic ex as tolerated. Transition toward independent aquatic exercise program.
--- NOTE | 2018-06-04 14:43 | PT.OPDS ---
Current Diagnoses Bilateral primary osteoarthritis of knee (05/10/18) Provider Visit Care Team Role Provider Type Sriram Badillo MD Family Provider Physician Primary Care Provider Specialty: Internal Medicine Address: [address] [place] [address], [id number] Email: Aisha Jones MD Attending Provider Physician Specialty: Orthopedic Surgery Address: [address] [place] [address], [address] Email: [email or web address] Visit Number Visit Number 10 Discharge Summary PT-OP-B Current Condition Start: 01/19/18 14:31 Freq: Status: Active Protocol: Document 01/19/18 14:33 SAK (Rec: 01/19/18 14:44 SAK [id number]) Current Condition History of Current Condition Onset Date 15 years Current Complaints severe bilateral knee pain left greater than right History of Current Condition Reports multiple prior falls onto left LE that have caught up with me. Most difficult and painful activity is sit to stand. Uses trekking poles sometimes, states helps a lot because they keep me straight . Stair ambulation difficult , step-to pattern uses arms a lot. Uses scooter at grocery store. States she has done water exercise before, requests aquatic PT. Provides 5 day/wk care for grandchildren Prior Treatments and Tests x-rays show severe patellofemoral and medial compartment osteoarthritis bilaterally with osteophyte formation Future Testing and Treatments Planned Follow-up with Dr. Jones in 2 weeks Treatment Goals Patient/Caregiver Goals Decrease pain, improve activity tolerance, improve strength possibly in preparation for surgical intervention. Prior Functional Status Baseline Function- ADL's Independent Baseline Function- Mobility Independent Baseline Function- Gait independent, no device Current Functional Impairments (Reported) Functional Limitations- Mobility/Gait painful uses trekking poles, scooter at grocery store. Poor tolerance for community ambulation Personal Factors Other Personal Factors That May Effect Busy schedule with patient Therapy/Recovery expressing uncertainty about how to fit regular exercise into her schedule of caring for her grandchildren PT-OP-C Subjective Start: 01/19/18 14:31 Freq: Status: Active Protocol: Document 05/10/18 10:15 CLB (Rec: 05/10/18 14:59 CLB [id number]) OP-PT Subjective Patient Comments Patient Comments Pt stated her sons are on board to assist her if she has knee replacement. PT-OP-F Manual Assessment Start: 01/19/18 14:31 Freq: Status: Active Protocol: Document 01/19/18 14:33 SAK (Rec: 01/20/18 10:26 SAK [id number]) Manual Assessments Soft Tissue Assessment Soft Tissue Mobility Assessment Palpable muscle tightness left quads and hamstrings PT-OP-G Mobility & Gait Start: 01/19/18 14:31 Freq: Status: Active Protocol: Document 01/19/18 14:33 SAK (Rec: 01/20/18 10:26 [facility] [id number]) OP Mobility Evaluation Transfers Sit to Stand independent with decreased weight bearing left LE and c/o pain Floor Transfers unable Functional Movements Squats unable Running Assessment unable OP Gait Assessment Gait Gait Assistance Required: Independent Assistive Devices Assistive Device None Gait Deviations General Gait Pattern Antalgic Decreased Stride Length Decreased Feet Clearance Flexed Trunk Lateral Trunk Lean Factors Limiting Gait Function Factors Limiting Gait Function Pain Stair Climbing Evaluation Evaluation Level of Assist On Stairs Independent Technique/Endurance Stair Climbing Technique Step to Step PT-OP-K Range of Motion Start: 01/19/18 14:31 Freq: Status: Active Protocol: Document 01/19/18 14:33 [facility] (Rec: 01/20/18 10:26 [facility] [id number]) Knee Goniometric Range of Motion Knee Measured in Degrees Left Flexion Active (degrees) 70 Extension Active (degrees) 22 Right Flexion Active (degrees) 107 Extension Active (degrees) 0 Knee ROM Limitations Knee ROM Limitations Bony Restriction Pain Ankle and Foot Goniometric Range of Motion Ankle and Foot ROM Limitations Comments bilateral WFL PT-OP-M Strength Start: 01/19/18 14:31 Freq: Status: Active Protocol: Document 01/19/18 14:33 SAK (Rec: 01/20/18 10:26 [facility] [id number]) Knee Strength Knee Manual Muscle Testing Left Flexion (S2) 4- Good- Extension (L3) 4- Good- Right Flexion (S2) 4+ Good+ Extension (L3) 4+ Good+ PT-OP-T Assessment and Plan Start: 01/19/18 14:31 Freq: Status: Active Protocol: Document 06/04/18 14:40 SAK (Rec: 06/04/18 14:43 [facility] [id number]) Physical Therapy Plan Discharge Physical Therapy Discharge Reasons Patient Request Discharge Comments Has difficulty attending PT due to times available for therapy conflicting with her childcare for her grandchildren. Plans to do aquatic exercise independently when it works best for her schedule.
== END 2018-05-10 13:44 ==
LOC: PHYS 10:15
PROVIDERS: Family Provider Internal Medicine; PCP Internal Medicine; Visit Provider Orthopaedic Surgery
DX: M17.0 Bilateral primary osteoarthritis of knee (principal)
CPT/HCPCS: 97113; 97162; 97535

== ENCOUNTER 2018-12-28 21:09 | Emergency (ER) | payer MEDICARE, BC, SELFPAY ==
[2018-12-28 21:15] VITALS: BP 184/83; PULSE 92; RESP 20; TEMP 37.9; O2SAT 96; BMI 42.6
--- NOTE | 2018-12-28 21:27 | ED_ITS ---
HPI - Weakness General Chief complaint: Weakness Stated complaint: states extremely dehydrated Time Seen by Provider: 12/28/18 21:25 Source: patient Mode of arrival: ambulatory Limitations: no limitations History of Present Illness HPI Narrative: This is a 73-year-old female comes emergency department complaining of feeling tired. Patient just states she feels tired and sleepy. She states that she just has felt tired all day. She states she has a mild headache. She denies any vision changes, she denies any trauma. She denies any neck pain. She denies any chest pain or pressure, no shortness of breath. No swelling in her extremities. Denies any nausea or vomiting, no issues with bowel movements. No black or bloody stools. No dysuria, patient has had some urgency and frequency but states she has been drinking a lot of water today so she expected that. She states she has not felt sick like influenza. She states she normally watches her grandchild and had family come pick him up because she felt more tired than normal. She thinks she might be dehydrated. She denies any current medications, she does have obstructive sleep apnea and uses CPAP. States that she had an ectopic that was removed as well as cholecystectomy in the past. Denies tobacco, alcohol or illicit. Dr. Badillo is her PCP. Related Data Home Medications Medication Instructions Recorded Confirmed Respironics DreamStation BIPAP #1 ea 08/10/18 12/28/18 Previous Rx's Medication Instructions Recorded cephalexin [Keflex] 500 mg PO BID #6 cap 12/29/18 Allergies Allergy/AdvReac Type Severity Reaction Status Date / Time rivaroxaban [From XARELTO] AdvReac Mild HIVES Verified 08/10/18 14:03 Review of Systems Review of Systems ROS Unobtainable: All systems reviewed & are unremarkable except as noted in HPI and below Constitutional Denies body ache(s), Denies chills, Reports fatigue (feels tired), Denies fever(s), Denies frequent falls, Reports headache(s) (mild per patient), Denies lethargy, Denies poor appetite and Denies weakness Eyes Denies change in vision ENT Ears, Nose, Mouth, and Throat: Denies dizziness, Reports headache(s) (mild per patient), Denies neck pain, Denies disequilibrium and Reports other Cardiovascular Denies chest pain, Denies diaphoresis, Denies syncope, Denies rapid heart rate, Denies edema, Denies irregular heart rhythm, Denies lightheadedness, Denies radiating jaw, neck or arm pain, Denies palpitations, Denies dyspnea, Denies dyspnea on exertion and Denies orthopnea Respiratory Denies chest congestion, Denies cough, Denies dyspnea and Denies dyspnea on exertion Gastrointestinal Gastrointestinal: Denies abdominal pain, Denies melena, Denies hematochezia, Denies change in bowel habits, Denies diarrhea, Denies nausea and Denies vomiting Genitourinary Denies hematuria, Reports urinary frequency, Denies dysuria, Denies flank pain, Denies urinary incontinence and Reports urinary urgency Musculoskeletal Denies back pain, Denies muscle weakness, Denies neck pain, Denies numbness and Denies tingling Integumentary/Breasts Denies erythema and Denies rash Neurologic Reports as per HPI, Denies confusion, Denies dizziness, Denies syncope, Denies frequent falls, Reports headache(s) (mild per patient), Denies focal weakness, Denies numbness, Denies sensory deficit, Denies tingling, Denies disequilibrium and Denies weakness Psychiatric Denies confusion Endocrine Reports fatigue (feels tired) and Denies palpitations PFSH Medical History Obstructive sleep apnea of adult (Chronic ~2008) Morbid obesity with BMI of 40.0-44.9, adult (Chronic) Excessive daytime sleepiness (Inactive ~2008) Nocturnal hypoxemia (Inactive) Social History (Updated 08/10/18 @ 18:27 by ANUJ Abdullahi) marital status: number of children: 2 household members: none lives independently: Yes caregiver/support person: No housing: house education level: college pino/hinduism: Miranda Smoking Status: Never smoker alcohol intake: never substance use type: does not use Type(s) of exercise: walking additional social history: 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 HEENT: Atraumatic, pupils are equal round reactive to light, extraocular movements are intact, nares are clear, TMs are clear with no fluid, there is no conjunctival pallor. Throat is clear without any exudates, erythema, tonsillar enlargement or uvular deviation, no facial droop. HEART: Regular rate and rhythm without murmur, clicks, rubs. LUNGS:Lungs clear to auscultation, no wheezes, rales, crackles, chest moves symmetrically ABD:bowel sounds normal, soft, non-tender, no guarding, rebound, rigidity, no masses noted, no hepatosplenomegaly :No CVA tenderness MSCL: Non-tender, no muscle atrophy, muscles strength 5/5 upper and lower extremities, full range of motion, patient able to sit up and lay back down without assistance. NEURO:CN 2-12 intact, sensation normal Initial Vital Signs Initial Vital Signs: Vital Signs Temperature 100.2 F H 12/28/18 21:15 Pulse Rate 92 H 12/28/18 21:15 Respiratory Rate 20 12/28/18 21:15 Blood Pressure 184/83 H 12/28/18 21:15 Pulse Oximetry 96 12/28/18 21:15 Scores GCS [place] coma scale eye opening: Spontaneous [place] coma scale verbal response: Orientated [place] coma scale motor response: Obey commands [place] coma scale total score: 15 Course Orders Ordered: ED Orders 12/28/18 21:26 B Type Natriuretic Peptide Stat Complete Blood Count AUTO DIFF Stat Comprehensive Metabolic Panel Stat Lipase Stat Partial Thromboplastin Time Stat Prothrombin Time INR Stat Troponin & CK Cardiac Panel Stat 12/28/18 21:34 XR chest 1V Stat EKG-12 Lead Stat 12/28/18 21:52 CT head/brain wo con Stat 12/28/18 22:47 Blood Culture Stat 12/28/18 22:52 Lactate (Lactic Acid) Stat 12/29/18 00:36 Urine Culture Stat Discontinued Medications Acetaminophen (Tylenol) 650 mg PO NOW ONE Stop: 12/28/18 21:34 Last Admin: 12/28/18 21:42 Dose: 650 mg Cefazolin Sodium (Keflex Premix) 1 bottle MIS SEEINSTR ONE Stop: 12/29/18 00:29 Last Admin: 12/29/18 00:53 Dose: 1 prepack Sodium Chloride (Normal Saline 0.9%) 1,000 mls @ 1,000 mls/hr IV BOLUS ONE Stop: 12/28/18 22:32 Last Infusion: 12/28/18 23:31 Dose: 0 mls/hr Infusion: 12/28/18 23:06 Dose: 999 mls/hr Infusion: 12/28/18 21:59 Dose: 0 mls/hr Admin: 12/28/18 21:43 Dose: 1,000 mls/hr Vital Signs - 8 hr 12/28/18 21:15 12/28/18 23:07 12/29/18 00:30 Temperature 100.2 F H Pulse Rate 92 H 84 80 Respiratory Rate 20 28 H 21 Blood Pressure 184/83 H Blood Pressure [Right Arm] 148/61 H 166/67 H Pulse Oximetry 96 94 93 12/29/18 01:00 Temperature Pulse Rate 81 Respiratory Rate 17 Blood Pressure 162/58 H Blood Pressure [Right Arm] Pulse Oximetry 96 MDM - Weakness Lab Data Attestation: I reviewed the patient's lab results. Result diagrams: 12/28/18 21:26 12/28/18 21:26 Lab Results 12/28/18 12/28/18 12/28/18 Range/Units 21:26 21:26 21:26 WBC 15.4 H (4.5-11.0) X10^3/uL RBC 4.28 (4.0-5.2) X10^6/uL Hgb 13.3 (12.0-16.0) g/dL Hct 38.8 (36-46) % MCV 90.7 (80-100) fL MCH 31.0 (26-34) PG MCHC 34.2 (30-36) % RDW 13.3 (11.6-14.8) % Plt Count 241 (150-400) X10^3/uL Neut % (Auto) 82.9 H (50-75) % Lymph % (Auto) 9.9 L (25-40) % [place] % (Auto) 6.6 (3-14) % Eos % (Auto) 0.1 L (2-4) % Baso % (Auto) 0.5 (0-2) % Neut # (Auto) 78816 H (7050-4927) /uL Lymph # (Auto) 1500 (6296-1421) /uL [place] # (Auto) 1000 H (0-900) /uL Eos # (Auto) 0 (0-450) /uL Baso # (Auto) 100 (0-100) /uL PT 13.1 H (10.1-12.7) SECONDS INR 1.1 (0.9-1.3) APTT 30 (26.4-36.2) SECONDS Sodium (137-145) mmol/L Potassium (3.4-5.1) mmol/L Chloride (98-107) mmol/L Carbon Dioxide (22-32) mmol/L BUN (7-17) mg/dL Creatinine (0.52-1.04) mg/dL Estimated GFR (>60) mL/min BUN/Creatinine Ratio (6-22) Glucose (80-110) mg/dL Lactate (0.7-2.1) mmol/L Calcium (8.4-10.2) mg/dL Total Bilirubin (0.2-1.3) mg/dL AST (14-36) IU/L ALT (9-52) IU/L Alkaline Phosphatase (38-126) U/L Total Creatine Kinase (30-135) U/L CK-MB (CK-2) CK-MB (CK-2) Rel Index Troponin I (0.01-0.034) ng/mL B-Natriuretic Peptide 139 H (<100) Total Protein (6.3-8.2) g/dL Albumin (3.5-5.0) g/dL Globulin (1.7-4.1) g/dL Albumin/Globulin Ratio (1.0-2.8) Lipase (23-300) U/L 12/28/18 12/28/18 Range/Units 21:26 22:52 WBC (4.5-11.0) X10^3/uL RBC (4.0-5.2) X10^6/uL Hgb (12.0-16.0) g/dL Hct (36-46) % MCV (80-100) fL MCH (26-34) PG MCHC (30-36) % RDW (11.6-14.8) % Plt Count (150-400) X10^3/uL Neut % (Auto) (50-75) % Lymph % (Auto) (25-40) % [place] % (Auto) (3-14) % Eos % (Auto) (2-4) % Baso % (Auto) (0-2) % Neut # (Auto) (6852-3612) /uL Lymph # (Auto) (2598-8660) /uL [place] # (Auto) (0-900) /uL Eos # (Auto) (0-450) /uL Baso # (Auto) (0-100) /uL PT (10.1-12.7) SECONDS INR (0.9-1.3) APTT (26.4-36.2) SECONDS Sodium 137 (137-145) mmol/L Potassium 3.7 (3.4-5.1) mmol/L Chloride 100 (98-107) mmol/L Carbon Dioxide 25 (22-32) mmol/L BUN 12 (7-17) mg/dL Creatinine 0.70 (0.52-1.04) mg/dL Estimated GFR > 60.0 (>60) mL/min BUN/Creatinine Ratio 17.1 (6-22) Glucose 149 H (80-110) mg/dL Lactate 1.0 (0.7-2.1) mmol/L Calcium 9.3 (8.4-10.2) mg/dL Total Bilirubin 1.2 (0.2-1.3) mg/dL AST 28 (14-36) IU/L ALT 19 (9-52) IU/L Alkaline Phosphatase 96 (38-126) U/L Total Creatine Kinase 52 (30-135) U/L CK-MB (CK-2) TNP CK-MB (CK-2) Rel Index TNP Troponin I < 0.012 (0.01-0.034) ng/mL B-Natriuretic Peptide (<100) Total Protein 8.3 H (6.3-8.2) g/dL Albumin 4.3 (3.5-5.0) g/dL Globulin 4.0 (1.7-4.1) g/dL Albumin/Globulin Ratio 1.1 (1.0-2.8) Lipase 70 (23-300) U/L Urine Dip Bedside Urine Glucose Negative Bedside Urine Bilirubin - Negative Bedside Urine Ketone - Negative Urine Specific [place] 1.010 Bedside Urine Occult Blood - Negative Bedside Urine pH 7.0 Bedside Urine Protein - Negative Bedside Urine Urobilinogen - Negative Bedside Urine Nitrite - Negative Bedside Urine Leukocytes - Negative Esterase Imaging Data Chest x-ray: Radiologist's impression: [address] [address] XRay Report Signed Patient: Jazlyn Jackson [facility]#: [id number] : 5Acct:[id number] Age/Sex: 73 / FDate of Service: 12/28/18 Loc: ED Accession Number: [id number] Procedure: XR chest 1V Ordering Provider: Penelope Bryan D.O. PROCEDURE: XR CHEST 1V INDICATIONS: feels tired,concerned dehydrated. TECHNIQUE: One view of the chest was acquired. COMPARISON: [facility], , XR CHEST 1V, 02/26/2018, 2:26. FINDINGS: Surgical changes and devices: None. Lungs and pleura: Mild diffuse interstitial prominence. Blunting of the left costophrenic angle suggesting a small pleural effusion. Streaky bibasilar opacities more pronounced on the left. No focal consolidation. No pneumothorax. Mediastinum: Cardiomediastinal contours remain stable with slightly enlarged cardiac silhouette. Bones and chest wall: No suspicious bony lesions. Overlying soft tissues appear unremarkable. IMPRESSION: Mild diffuse interstitial prominence, borderline cardiomegaly, and small left pleural effusion. Findings may represent early pulmonary edema if clinically appropriate with infectious/inflammatory process not excluded. Consider dedicated PA and lateral views of the chest when patient is able. Dictated by: Juan M Mendoza M.D. on 12/28/2018 at 22:09 Approved by: Juan M Mendoza M.D. on 12/28/2018 at 22:15 CT scan - head: Radiologist's impression: nap. ECG Data Attestation: I personally reviewed and interpreted this ECG as follows: Interpretation: Sinus with a rate 87 P are 186 QRS a 90 QTC 393. Q-wave in 3, nonspecific T-wave changes. MDM Narrative Medical decision making narrative: Patient's lab work shows elevated white count 15, her glucose is slightly elevated 149, BNP is 139 with a total protein that is slightly elevated. Troponin is negative, the rest of her lab work does not show acute findings. Imaging shows no acute findings on CT or CXR. Urine is negative but patient had some clinical symptoms of UTI with elevated wbc count. Blood culture pending. Discussed with patient whether she would be open to waiting for urine culture to come back versus starting antibiotics. She would prefer to start. We will give 1st dose here in the ER. This is a clinical diagnosis. Patient is feeling much better after fluids. She was able to ambulate to and from the bathroom. Discharge Plan Departure Patient Disposition: Home Clinical Impression: UTI (urinary tract infection) Discharge Date/Time: 12/29/18 01:00 Interventions: ED Discharge Assessment Last Done: 12/29/18 01:00 Instructions: DI for Urinary Tract Infection (UTI) Activity Restrictions/Additional Instructions: Follow-up with your primary care doctor in the next 24-48 hours for recheck. Call for an appointment. Take antibiotics until they are completely gone. Return to the emergency department for persistent fevers, worsening weakness, passing out, new chest pain, shortness of breath, persistent vomiting black or bloody stools or other new or concerning symptoms. Prescriptions: New cephalexin [Keflex] 500 mg capsule 500 mg PO BID Qty: 6 RF: 0 No Action Respironics [employer]Station BIPAP Qty: 1 RF: 0 Referrals: Sriram Badillo MD [Primary Care Provider] -
--- NOTE | 2018-12-28 21:34 | DI.RAD.S_ITS ---
PROCEDURE: XR CHEST 1V INDICATIONS: feels tired,concerned dehydrated. TECHNIQUE: One view of the chest was acquired. COMPARISON: [facility], CR, XR CHEST 1V, 02/26/2018, 2:26. FINDINGS: Surgical changes and devices: None. Lungs and pleura: Mild diffuse interstitial prominence. Blunting of the left costophrenic angle suggesting a small pleural effusion. Streaky bibasilar opacities more pronounced on the left. No focal consolidation. No pneumothorax. Mediastinum: Cardiomediastinal contours remain stable with slightly enlarged cardiac silhouette. Bones and chest wall: No suspicious bony lesions. Overlying soft tissues appear unremarkable. IMPRESSION: Mild diffuse interstitial prominence, borderline cardiomegaly, and small left pleural effusion. Findings may represent early pulmonary edema if clinically appropriate with infectious/inflammatory process not excluded. Consider dedicated PA and lateral views of the chest when patient is able. Dictated by: Juan M Mendoza M.D. on 12/28/2018 at 22:09 Approved by: Juan M Mendoza M.D. on 12/28/2018 at 22:15
[2018-12-28 21:42] LABS: INR 1.1 (0.9-1.3); Prothrombin Time 13.1 SECONDS (10.1-12.7)
[2018-12-28] MEDS: ACETAMINOPHEN 325 MG TABLET 650 MG PO (21:42)
[2018-12-28] MEDS: SODIUM CHLORIDE 0.9% 1,000 ML 1000 ML IV (21:43)
[2018-12-28 21:45] LABS: PTT Partial Thromboplastin Tim 30 SECONDS (26.4-36.2)
[2018-12-28 21:46] LABS: Alanine Aminotransferase 19 IU/L (9-52); Albumin 4.3 g/dL (3.5-5.0); Albumin Globulin Ratio 1.1 (1.0-2.8); Alkaline Phosphatase 96 U/L (38-126); Aspartate Aminotransferase 28 IU/L (14-36); BUN Creatinine Ratio 17.1 (6-22); Bilirubin Total 1.2 mg/dL (0.2-1.3); Blood Urea Nitrogen 12 mg/dL (7-17); Calcium 9.3 mg/dL (8.4-10.2); Carbon Dioxide 25 mmol/L (22-32); Chloride 100 mmol/L (98-107); Creatine Kinase 52 U/L (30-135); Estimated Glomerular Filt Rate > 60.0 mL/min (>60); Glucose 149 mg/dL (80-110); HEMOLYSIS < 15 (0-50); Lipase 70 U/L (23-300); Potassium 3.7 mmol/L (3.4-5.1); Sodium 137 mmol/L (137-145); Total Protein 8.3 g/dL (6.3-8.2)
[2018-12-28 21:47] LABS: Add Manual Diff / Slide Review NO; Basophils Absolute Auto 100 /uL (0-100); Basophils Percent Auto 0.5 % (0-2); Eosinophils Absolute Auto 0 /uL (0-450); Eosinophils Percent Auto 0.1 % (2-4); Hematocrit 38.8 % (36-46); Hemoglobin 13.3 g/dL (12.0-16.0); Lymphocytes Absolute Auto 1500 /uL (1100-4500); Lymphocytes Percent Auto 9.9 % (25-40); Mean Corpuscular HGB Conc 34.2 % (30-36); Mean Corpuscular Volume 90.7 fL (80-100); Monocytes Absolute Auto 1000 /uL (0-900); Monocytes Percent Auto 6.6 % (3-14); Neutrophils Absolute Auto 12700 /uL (1500-7000); Neutrophils Percent Auto 82.9 % (50-75); Platelet Count 241 X10^3/uL (150-400); Red Blood Cell Count 4.28 X10^6/uL (4.0-5.2); Red Cell Distribution Width 13.3 % (11.6-14.8); White Blood Cell Count 15.4 X10^3/uL (4.5-11.0)
--- NOTE | 2018-12-28 21:52 | DI.CT.S_ITS ---
PROCEDURE: CT HEAD/BRAIN WO CON INDICATIONS: headache, feels tired. TECHNIQUE: Noncontrast 4.5 mm thick angled axial sections acquired from the foramen magnum to the vertex, with coronal and sagittal reformats. For radiation dose reduction, the following was used: automated exposure control, adjustment of mA and/or kV according to patient size. COMPARISON: [facility], CT, CT HEAD/BRAIN WO CON, 02/26/2018, 2:50. FINDINGS: Image quality: Excellent. CSF spaces: Basal cisterns are patent. No extra-axial fluid collections. The ventricles are symmetric in size and shape. Brain: No intracranial bleeds or masses. There is cerebral volume loss for age, with resultant ventricular and sulcal prominence. There are moderate periventricular and deep white matter chronic small vessel ischemic changes. There is intracranial internal carotid artery atherosclerosis. Skull and face: Calvarium and visualized facial bones appear intact, without suspicious lesions. Sinuses: Visualized sinuses and mastoids are clear. IMPRESSION: 1. Age related volume loss and moderate small vessel ischemic change. 2. No evidence acute stroke, hemorrhage, or mass. Comment: Final report is concurrent with preliminary interpretation provided by [facility]. Dictated by: Austen Mccurdy M.D. on 12/29/2018 at 8:08 Approved by: Austen Mccurdy M.D. on 12/29/2018 at 8:12
[2018-12-28 21:58] LABS: Troponin I < 0.012 ng/mL (0.01-0.034)
[2018-12-28 21:59] LABS: B Type Natriuretic Peptide 139 (<100)
--- NOTE | 2018-12-28 22:02 | PC.NURSE ---
pt to ct with tech on stretcher
[2018-12-28 23:07] VITALS: BP 148/61; PULSE 84; RESP 28; O2SAT 94
[2018-12-29 00:30] VITALS: BP 166/67; PULSE 80; RESP 21; O2SAT 93
[2018-12-29] MEDS: cephALEXin 250 MG PREPACK 1 BOTTLE MISC (00:53)
[2018-12-29 01:00] VITALS: BP 162/58; PULSE 81; RESP 17; O2SAT 96
== END 2018-12-29 01:00 | disposition home or self-care (01) ==
PROVIDERS: Emergency Provider Emergency Medicine; Family Provider Internal Medicine; PCP Internal Medicine
DX: N39.0 Urinary tract infection, site not specified (principal); R53.83 Other fatigue; R51 Headache; R03.0 Elevated blood-pressure reading, without diagnosis of hypertension
CPT/HCPCS: 36415; 36591; 70450; 71045; 80053; 81003; 82550; 83605; 83690; 83880; 84484; 85025; 85610; 85730; 87040; 87086; 93005; 96360; 99284; 99285

== ENCOUNTER 2018-12-30 12:26 | Emergency (ER) | payer MEDICARE, BC, SELFPAY ==
[2018-12-30 12:30] VITALS: BP 147/82; PULSE 79; RESP 16; TEMP 37.3; O2SAT 97; BMI 43.2
--- NOTE | 2018-12-30 12:34 | DI.US.S_ITS ---
PROCEDURE: US PERIPH VENOUS LOW EXTREM LT INDICATIONS: EDEMA, PAIN TECHNIQUE: Real-time imaging, as well as color and pulse Doppler interrogation, were performed of the lower extremity deep veins from the inguinal ligament to the popliteal fossa. COMPARISON: None. FINDINGS: The common femoral, femoral and popliteal veins are normally compressible, and free of intraluminal thrombus. Color and pulse Doppler demonstrate normal phasic intraluminal flow. There is normal augmentation response to distal compression maneuver. IMPRESSION: No deep venous thrombosis. Dictated by: Izabel Greene M.D. on 12/30/2018 at 13:26 Approved by: Izabel Greene M.D. on 12/30/2018 at 13:26
[2018-12-30 13:37] VITALS: BP 152/65; PULSE 75; RESP 18; TEMP 37.1; O2SAT 98
--- NOTE | 2018-12-30 13:39 | ED.EXTPRO ---
HPI - Extremity Problem General Chief complaint: Extremity Problem,Nontraumatic Stated complaint: left ankle is burning since yesterday Time Seen by Provider: 12/30/18 13:39 Source: patient Mode of arrival: ambulatory Limitations: no limitations History of Present Illness HPI Narrative: [age]-year-old female comes emergency department with complaint of left ankle burning and redness that started yesterday patient was actually seen by myself 2 nights ago for just feeling under the weather and not well. She has not had fevers, no chest pain, no shortness of breath no nausea vomiting no other GI or urinary symptoms. She always has swelling in her lower extremities worse. She has some chronic venous stasis changes but had noticed some redness that is spreading down her foot and up her ankle. She has tenderness over the ankle and in the area of redness. She denies any trauma or injury. She does have a history of blood clot so was sent by her primary care after talking to them on the phone for evaluation for DVT. Related Data Home Medications Medication Instructions Recorded Confirmed Respironics DreamStation BIPAP #1 ea 08/10/18 12/28/18 Previous Rx's Medication Instructions Recorded cephalexin [Keflex] 500 mg PO BID #6 cap 12/29/18 clindamycin HCl 300 mg PO Q6H #40 cap 12/30/18 Allergies Allergy/AdvReac Type Severity Reaction Status Date / Time rivaroxaban [From XARELTO] AdvReac Mild HIVES Verified 12/30/18 12:30 Review of Systems Review of Systems ROS Unobtainable: All systems reviewed & are unremarkable except as noted in HPI and below Constitutional Denies chills, Denies fever(s), Denies lethargy and Denies weakness Cardiovascular Denies chest pain, Denies dyspnea and Denies dyspnea on exertion Respiratory Denies change in phlegm color, Denies chest congestion, Denies cough, Denies dyspnea and Denies dyspnea on exertion Gastrointestinal Gastrointestinal: Denies abdominal pain, Denies melena, Denies hematochezia, Denies change in bowel habits, Denies diarrhea, Denies nausea and Denies vomiting Genitourinary Denies hematuria, Denies urinary frequency, Denies dysuria, Denies flank pain, Denies urinary incontinence and Denies urinary urgency Musculoskeletal Reports as per HPI, Denies muscle weakness, Denies numbness, Denies tingling and Reports other (redness, pain.) Neurologic Reports as per HPI, Denies focal weakness, Denies numbness, Denies tingling and Denies weakness FORMERLY [facility], [facility] Social History marital status: number of children: 2 household members: none lives independently: Yes caregiver/support person: No housing: house education level: college pino/yazdanism: Buddhist Smoking Status: Never smoker alcohol intake: never substance use type: does not use Type(s) of exercise: walking 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 HEENT: Head normocephalic, atraumatic, EOMI, pupils reactive, face symmetric, moist mucous membranes NECK: Supple, full range of motion CARDIOVASCULAR: Regular rate and rhythm without murmurs, rubs or gallops. RESPIRATORY: Breath sounds equal bilaterally, no wheezes rales or rhonchi. ABDOMEN: Soft, nontender. Normoactive bowel sounds all 4 quadrants. No guarding or rebound, rigidity, no mass : No CVA tenderness EXTREMITIES: Normal range of motion, no clubbing. Patient has trace edema bilaterally. She has venous stasis changes which are chronic. They were present on her last ER visit as well. Patient has erythema extending about mcfp up the calf and mcfp over the dorsum of the foot. Patient is only mildly tender to touch. She has a cap refill less than 2 seconds in 5 toes. Normal movement and muscle strength in bilateral lower extremities with normal sensation.. Neurovascularly intact NEUROLOGICAL: Cranial nerves II through XII grossly intact. Moving all extremities SKIN: Warm, dry, no petechiae, no rashes or lesions. Initial Vital Signs Initial Vital Signs: Vital Signs Temperature 99.1 F 12/30/18 12:30 Pulse Rate 79 12/30/18 12:30 Respiratory Rate 16 12/30/18 12:30 Blood Pressure 147/82 H 12/30/18 12:30 Pulse Oximetry 97 12/30/18 12:30 Course Orders Ordered: ED Orders 12/30/18 12:34 US periph venous low extrem lt Stat 12/30/18 14:25 Complete Blood Count AUTO DIFF Stat Comprehensive Metabolic Panel Stat Lactate (Lactic Acid) Stat Procalcitonin Stat 12/30/18 15:39 Urine Culture Stat Urine Microscopic Stat Discontinued Medications Clindamycin Phosphate (Cleocin) 600 mg in 50 mls @ 50 mls/hr IV NOW ONE Stop: 12/30/18 14:55 Last Infusion: 12/30/18 15:34 Dose: 0 mls/hr Admin: 12/30/18 14:31 Dose: 50 mls/hr Vital Signs - 8 hr 12/30/18 12:30 12/30/18 13:37 12/30/18 14:31 Temperature 99.1 F 98.7 F Pulse Rate 79 75 68 Respiratory Rate 16 18 Blood Pressure 147/82 H Blood Pressure [Right Arm] 152/65 H 159/66 H Pulse Oximetry 97 98 99 MDM - Extremity (Nontraumatic) Lab Data Attestation: I reviewed the patient's lab results. Result diagrams: 12/30/18 14:25 12/30/18 14:25 Lab Results 12/30/18 12/30/18 12/30/18 Range/Units 14:25 14:25 14:25 WBC 10.6 (4.5-11.0) X10^3/uL RBC 3.80 L (4.0-5.2) X10^6/uL Hgb 12.0 (12.0-16.0) g/dL Hct 35.6 L (36-46) % MCV 93.5 (80-100) fL MCH 31.7 (26-34) PG MCHC 33.9 (30-36) % RDW 13.8 (11.6-14.8) % Plt Count 215 (150-400) X10^3/uL Neut % (Auto) 71.1 (50-75) % Lymph % (Auto) 18.6 L (25-40) % [place] % (Auto) 8.2 (3-14) % Eos % (Auto) 1.7 L (2-4) % Baso % (Auto) 0.4 (0-2) % Neut # (Auto) 7500 H (9838-1471) /uL Lymph # (Auto) 2000 (3906-3015) /uL [place] # (Auto) 900 (0-900) /uL Eos # (Auto) 200 (0-450) /uL Baso # (Auto) 0 (0-100) /uL Sodium 137 (137-145) mmol/L Potassium 3.5 (3.4-5.1) mmol/L Chloride 103 (98-107) mmol/L Carbon Dioxide 26 (22-32) mmol/L BUN 12 (7-17) mg/dL Creatinine 0.80 (0.52-1.04) mg/dL Estimated GFR > 60.0 (>60) mL/min BUN/Creatinine Ratio 15.0 (6-22) Glucose 101 (80-110) mg/dL Lactate (0.7-2.1) mmol/L Calcium 9.1 (8.4-10.2) mg/dL Total Bilirubin 0.9 (0.2-1.3) mg/dL AST 24 (14-36) IU/L ALT 18 (9-52) IU/L Alkaline Phosphatase 90 (38-126) U/L Total Protein 7.6 (6.3-8.2) g/dL Albumin 3.9 (3.5-5.0) g/dL Globulin 3.7 (1.7-4.1) g/dL Albumin/Globulin Ratio 1.1 (1.0-2.8) Procalcitonin 0.05 (<0.5) ng/mL Urine RBC (0-5/HPF) Urine WBC (0-5/HPF) Ur Squamous Epith Cells (0-5/HPF) Ur Transition Epith Cell (0-5/HPF) Urine Bacteria (None) Urine Mucus (Negative) Ur Culture Indicated? 12/30/18 12/30/18 Range/Units 14:25 15:39 WBC (4.5-11.0) X10^3/uL RBC (4.0-5.2) X10^6/uL Hgb (12.0-16.0) g/dL Hct (36-46) % MCV (80-100) fL MCH (26-34) PG MCHC (30-36) % RDW (11.6-14.8) % Plt Count (150-400) X10^3/uL Neut % (Auto) (50-75) % Lymph % (Auto) (25-40) % [place] % (Auto) (3-14) % Eos % (Auto) (2-4) % Baso % (Auto) (0-2) % Neut # (Auto) (7194-9542) /uL Lymph # (Auto) (9720-4490) /uL [place] # (Auto) (0-900) /uL Eos # (Auto) (0-450) /uL Baso # (Auto) (0-100) /uL Sodium (137-145) mmol/L Potassium (3.4-5.1) mmol/L Chloride (98-107) mmol/L Carbon Dioxide (22-32) mmol/L BUN (7-17) mg/dL Creatinine (0.52-1.04) mg/dL Estimated GFR (>60) mL/min BUN/Creatinine Ratio (6-22) Glucose (80-110) mg/dL Lactate 1.2 (0.7-2.1) mmol/L Calcium (8.4-10.2) mg/dL Total Bilirubin (0.2-1.3) mg/dL AST (14-36) IU/L ALT (9-52) IU/L Alkaline Phosphatase (38-126) U/L Total Protein (6.3-8.2) g/dL Albumin (3.5-5.0) g/dL Globulin (1.7-4.1) g/dL Albumin/Globulin Ratio (1.0-2.8) Procalcitonin (<0.5) ng/mL Urine RBC 0-1/hpf (0-5/HPF) Urine WBC 5-10/hpf H (0-5/HPF) Ur Squamous Epith Cells 1-5 /hpf (0-5/HPF) Ur Transition Epith Cell 0-1/hpf (0-5/HPF) Urine Bacteria Occasional (0-1) (None) Urine Mucus 1+ H (Negative) Ur Culture Indicated? Specimen cultured Urine Dip Bedside Urine Glucose Negative Bedside Urine Bilirubin - Negative Bedside Urine Ketone +/- 5 Urine Specific [place] 1.020 Bedside Urine Occult Blood - Negative Bedside Urine pH 5.5 Bedside Urine Protein - Negative Bedside Urine Urobilinogen - Negative Bedside Urine Nitrite - Negative Bedside Urine Leukocytes + 70 Esterase Imaging Data DVT ultrasound: Radiologist's impression: Jazlyn Jackson 73 F [address] [address] Ultrasound Report Signed Patient: Jazlyn Jackson [facility]#: [id number] : 5Acct:[id number] Age/Sex: 73 / FDate of Service: 12/30/18 Loc: ED Accession Number: [id number] Procedure: US periph venous low extrem lt Ordering Provider: Penelope Bryan D.O. PROCEDURE: US PERIPH VENOUS LOW EXTREM LT INDICATIONS: EDEMA, PAIN TECHNIQUE: Real-time imaging, as well as color and pulse Doppler interrogation, were performed of the lower extremity deep veins from the inguinal ligament to the popliteal fossa. COMPARISON: None. FINDINGS: The common femoral, femoral and popliteal veins are normally compressible, and free of intraluminal thrombus. Color and pulse Doppler demonstrate normal phasic intraluminal flow. There is normal augmentation response to distal compression maneuver. IMPRESSION: No deep venous thrombosis. Dictated by: Izabel Greene M.D. on 12/30/2018 at 13:26 Approved by: Izabel Greene M.D. on 12/30/2018 at 13:26 [facility] Narrative Medical decision making narrative: Patient comes in with new redness, swelling and pain in your left calf/ankle. Patient was seen by myself 2 nights ago was not feeling well but did not have any changes on her lower extremity similar to this. She did have some venous stasis changes. Patient has been afebrile but definitely has what looks like cellulitic changes. Ultrasound does not show any DVT. Patient has had blood clots in the past. Her white count actually improved the rest of her lab work appears normal patient was placed on some Keflex for potential UTI although urine cultures negative, blood cultures are also negative from 2 nights ago. She received a dose of IV antibiotics, started on oral clindamycin and told to stop Keflex. Patient and I discussed she can return any time for recheck and I would recommend she comes back in the morning. If she has rapidly worsening to return sooner. Discharge Plan Departure Patient Disposition: Home Clinical Impression: Cellulitis of left lower extremity Discharge Date/Time: 12/30/18 15:56 Interventions: ED Discharge Assessment Last Done: 12/30/18 15:55 Instructions: DI for Cellulitis -- Adult Activity Restrictions/Additional Instructions: Return in 12 hours for recheck. If improving may follow up with her physician in 24-48 hours for recheck. Take antibiotics until completely gone. Stop Keflex change to the new antibiotic. Return to the emergency department for fevers greater 100.4, rapidly worsening redness, increasing pain new chest pain, shortness of breath, passing out, nausea or vomiting or other new or concerning symptoms Prescriptions: New clindamycin HCl 300 mg capsule 300 mg PO Q6H Qty: 40 RF: 0 No Action cephalexin [Keflex] 500 mg capsule 500 mg PO BID Qty: 6 RF: 0 Respironics DreamStation BIPAP Qty: 1 RF: 0 Referrals: Sriram Badillo MD [Primary Care Provider] -
--- NOTE | 2018-12-30 14:01 | ED_ITS ---
HPI - Extremity Problem General Chief complaint: Extremity Problem,Nontraumatic Stated complaint: left ankle is burning since yesterday Time Seen by Provider: 12/30/18 13:39 Source: patient Mode of arrival: ambulatory Limitations: no limitations History of Present Illness HPI Narrative: [age]-year-old female comes emergency department with complaint of left ankle burning and redness that started yesterday patient was actually seen by myself 2 nights ago for just feeling under the weather and not well. She has not had fevers, no chest pain, no shortness of breath no nausea vomiting no other GI or urinary symptoms. She always has swelling in her lower extremities worse. She has some chronic venous stasis changes but had noticed some redness that is spreading down her foot and up her ankle. She has tende rness over the ankle and in the area of redness. She denies any trauma or injury. She does have a history of blood clot so was sent by her primary care after talking to them on the phone for evaluation for DVT. Related Data Home Medications Medication Instructions Recorded Confirmed Respironics DreamStation BIPAP #1 ea 08/10/18 12/28/18 Previous Rx's Medication Instructions Recorded cephalexin [Keflex] 500 mg PO BID #6 cap 12/29/18 clindamycin HCl 300 mg PO Q6H #40 cap 12/30/18 Allergies Allergy/AdvReac Type Severity Reaction Status Date / Time rivaroxaban [From XARELTO] AdvReac Mild HIVES Verified 12/30/18 12:30 Review of Systems Review of Systems ROS Unobtainable: All systems reviewed & are unremarkable except as noted in HPI and below Constitutional Denies chills, Denies fever(s), Denies lethargy and Denies weakness Cardiovascular Denies chest pain, Denies dyspnea and Denies dyspnea on exertion Respiratory Denies change in phlegm color, Denies chest congestion, Denies cough, Denies dyspnea and Denies dyspnea on exertion Gastrointestinal Gastrointestinal: Denies abdominal pain, Denies melena, Denies hematochezia, Denies change in bowel habits, Denies diarrhea, Denies nausea and Denies vomiting Genitourinary Denies hematuria, Denies urinary frequency, Denies dysuria, Denies flank pain, Denies urinary incontinence and Denies urinary urgency Musculoskeletal Reports as per HPI, Denies muscle weakness, Denies numbness, Denies tingling and Reports other (redness, pain.) Neurologic Reports as per HPI, Denies focal weakness, Denies numbness, Denies tingling and Denies weakness FOR[facility]LY [facility] Social History marital status: number of children: 2 household members: none lives independently: Yes caregiver/support person: No housing: house education level: college pino/holiness: 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 HEENT: Head normocephalic, atraumatic, EOMI, pupils reactive, face symmetric, moist mucous membranes NECK: Supple, full range of motion CARDIOVASCULAR: Regular rate and rhythm without murmurs, rubs or gallops. RESPIRATORY: Breath sounds equal bilaterally, no wheezes rales or rhonchi. ABDOMEN: Soft, nontender. Normoactive bowel sounds all 4 quadrants. No guarding or rebound, rigidity, no mass : No CVA tenderness EXTREMITIES: Normal range of motion, no clubbing. Patient has trace edema bilaterally. She has venous stasis changes which are chronic. They were present on her last ER visit as well. Patient has erythema extending about custodial up the calf and custodial over the dorsum of the foot. Patient is only m ildly tender to touch. She has a cap refill less than 2 seconds in 5 toes. Normal movement and muscle strength in bilateral lower extremities with normal sensation.. Neurovascularly intact NEUROLOGICAL: Cranial nerves II through XII grossly intact. Moving all extremities SKIN: Warm, dry, no petechiae, no rashes or lesions. Initial Vital Signs Initial Vital Signs: Vital Signs Temperature 99.1 F 12/30/18 12:30 Pulse Rate 79 12/30/18 12:30 Respiratory Rate 16 12/30/18 12:30 Blood Pressure 147/82 H 12/30/18 12:30 Pulse Oximetry 97 12/30/18 12:30 Course Orders Ordered: ED Orders 12/30/18 12:34 US periph venous low extrem lt Stat 12/30/18 14:25 Complete Blood Count AUTO DIFF Stat Comprehensive Metabolic Panel Stat Lactate (Lactic Acid) Stat Procalcitonin Stat 12/30/18 15:39 Urine Culture Stat Urine Microscopic Stat Discontinued Medications Clindamycin Phosphate (Cleocin) 600 mg in 50 mls @ 50 mls/hr IV NOW ONE Stop: 12/30/18 14:55 Last Infusion: 12/30/18 15:34 Dose: 0 mls/hr Admin: 12/30/18 14:31 Dose: 50 mls/hr Vital Signs - 8 hr 12/30/18 12:30 12/30/18 13:37 12/30/18 14:31 Temperature 99.1 F 98.7 F Pulse Rate 79 75 68 Respiratory Rate 16 18 Blood Pressure 147/82 H Blood Pressure [Right Arm] 152/65 H 159/66 H Pulse Oximetry 97 98 99 MDM - Extremity (Nontraumatic) Lab Data Attestation: I reviewed the patient's lab results. Result diagrams: 12/30/18 14:25 12/30/18 14:25 Lab Results 12/30/18 12/30/18 12/30/18 Range/Units 14:25 14:25 14:25 WBC 10.6 (4.5-11.0) X10^3/uL RBC 3.80 L (4.0-5.2) X10^6/uL Hgb 12.0 (12.0-16.0) g/dL Hct 35.6 L (36-46) % MCV 93.5 (80-100) fL MCH 31.7 (26-34) PG MCHC 33.9 (30-36) % RDW 13.8 (11.6-14.8) % Plt Count 215 (150-400) X10^3/uL Neut % (Auto) 71.1 (50-75) % Lymph % (Auto) 18.6 L (25-40) % [place] % (Auto) 8.2 (3-14) % Eos % (Auto) 1.7 L (2-4) % Baso % (Auto) 0.4 (0-2) % Neut # (Auto) 7500 H (2811-0092) /uL Lymph # (Auto) 2000 (6349-2424) /uL [place] # (Auto) 900 (0-900) /uL Eos # (Auto) 200 (0-450) /uL Baso # (Auto) 0 (0-100) /uL Sodium 137 (137-145) mmol/L Potassium 3.5 (3.4-5.1) mmol/L Chloride 103 (98-107) mmol/L Carbon Dioxide 26 (22-32) mmol/L BUN 12 (7-17) mg/dL Creatinine 0.80 (0.52-1.04) mg/dL Estimated GFR > 60.0 (>60) mL/min BUN/Creatinine Ratio 15.0 (6-22) Glucose 101 (80-110) mg/dL Lactate (0.7-2.1) mmol/L Calcium 9.1 (8.4-10.2) mg/dL Total Bilirubin 0.9 (0.2-1.3) mg/dL AST 24 (14-36) IU/L ALT 18 (9-52) IU/L Alkaline Phosphatase 90 (38-126) U/L Total Protein 7.6 (6.3-8.2) g/dL Albumin 3.9 (3.5-5.0) g/dL Globulin 3.7 (1.7-4.1) g/dL Albumin/Globulin Ratio 1.1 (1.0-2.8) Procalcitonin 0.05 (<0.5) ng/mL Urine RBC (0-5/HPF) Urine WBC (0-5/HPF) Ur Squamous Epith Cells (0-5/HPF) Ur Transition Epith Cell (0-5/HPF) Urine Bacteria (None) Urine Mucus (Negative) Ur Culture Indicated? 12/30/18 12/30/18 Range/Units 14:25 15:39 WBC (4.5-11.0) X10^3/uL RBC (4.0-5.2) X10^6/uL Hgb (12.0-16.0) g/dL Hct (36-46) % MCV (80-100) fL MCH (26-34) PG MCHC (30-36) % RDW (11.6-14.8) % Plt Count (150-400) X10^3/uL Neut % (Auto) (50-75) % Lymph % (Auto) (25-40) % Delta % (Auto) (3-14) % Eos % (Auto) (2-4) % Baso % (Auto) (0-2) % Neut # (Auto) (9389-2506) /uL Lymph # (Auto) (5953-0270) /uL Delta # (Auto) (0-900) /uL Eos # (Auto) (0-450) /uL Baso # (Auto) (0-100) /uL Sodium (137-145) mmol/L Potassium (3.4-5.1) mmol/L Chloride (98-107) mmol/L Carbon Dioxide (22-32) mmol/L BUN (7-17) mg/dL Creatinine (0.52-1.04) mg/dL Estimated GFR (>60) mL/min BUN/Creatinine Ratio (6-22) Glucose (80-110) mg/dL Lactate 1.2 (0.7-2.1) mmol/L Calcium (8.4-10.2) mg/dL Total Bilirubin (0.2-1.3) mg/dL AST (14-36) IU/L ALT (9-52) IU/L Alkaline Phosphatase (38-126) U/L Total Protein (6.3-8.2) g/dL Albumin (3.5-5.0) g/dL Globulin (1.7-4.1) g/dL Albumin/Globulin Ratio (1.0-2.8) Procalcitonin (<0.5) ng/mL Urine RBC 0-1/hpf (0-5/HPF) Urine WBC 5-10/hpf H (0-5/HPF) Ur Squamous Epith Cells 1-5 /hpf (0-5/HPF) Ur Transition Epith Cell 0-1/hpf (0-5/HPF) Urine Bacteria Occasional (0-1) (None) Urine Mucus 1+ H (Negative) Ur Culture Indicated? Specimen cultured Urine Dip Bedside Urine Glucose Negative Bedside Urine Bilirubin - Negative Bedside Urine Ketone +/- 5 Urine Specific [place] 1.020 Bedside Urine Occult Blood - Negative Bedside Urine pH 5.5 Bedside Urine Protein - Negative Bedside Urine Urobilinogen - Negative Bedside Urine Nitrite - Negative Bedside Urine Leukocytes + 70 Esterase Imaging Data DVT ultrasound: Radiologist's impression: Jazlyn Jackson 73 F [address] [address] Ultrasound Report Signed Patient: Jazlyn Jackson DMR#: [id number] : 5Acct:[id number] Age/Sex: 73 / FDate of Service: 12/30/18 Loc: ED Accession Number: [id number] Procedure: US periph venous low extrem lt Ordering Provider: Penelope Bryan D.O. PROCEDURE: US PERIPH VENOUS LOW EXTREM LT INDICATIONS: EDEMA, PAIN TECHNIQUE: Real-time imaging, as well as color and pulse Doppler interrogation, were performed of the lower extremity deep veins from the inguinal ligament to the popliteal fossa. COMPARISON: None. FINDINGS: The common femoral, femoral and popliteal veins are normally compressible, and free of intraluminal thrombus. Color and pulse Doppler demonstrate normal phasic intraluminal flow. There is normal augmentation response to distal compression maneuver. IMPRESSION: No deep venous thrombosis. Dictated by: Izabel Greene M.D. on 12/30/2018 at 13:26 Approved by: Izabel Greene M.D. on 12/30/2018 at 13:26 [facility] Narrative Medical decision making narrative: Patient comes in with new redness, swelling and pain in your left calf/ankle. Patient was seen by myself 2 nights ago was not feeling well but did not have any changes on her lower extremity similar to this. She did have some venous stasis changes. Patient has been afebrile but definitely has what looks like cellulitic changes. Ultrasound does not show any DVT. Patient has had blood clots in the past. Her white count actually improved the rest of her lab work appears normal patient was placed on some Keflex for potential UTI although urine cultures negative, blood cultures are also negative from 2 nights ago. She received a dose of IV antibiotics, started on oral clindamycin and told to stop Keflex. Patient and I discussed she can return any time for recheck and I would recommend she comes back in the morning. If she has rapidly worsening to return sooner. Discharge Plan Departure Patient Disposition: Home Clinical Impression: Cellulitis of left lower extremity Discharge Date/Time: 12/30/18 15:56 Interventions: ED Discharge Assessment Last Done: 12/30/18 15:55 Instructions: DI for Cellulitis -- Adult Activity Restrictions/Additional Instructions: Return in 12 hours for recheck. If improving may follow up with her physician in 24-48 hours for recheck. Take antibiotics until completely gone. Stop Keflex change to the new antibiotic. Return to the emergency department for fevers greater 100.4, rapidly worsening redness, increasing pain new chest pain, shortness of breath, passing out, nausea or vomiting or other new or concerning symptoms Prescriptions: New clindamycin HCl 300 mg capsule 300 mg PO Q6H Qty: 40 RF: 0 No Action cephalexin [Keflex] 500 mg capsule 500 mg PO BID Qty: 6 RF: 0 Respironics DreamStation BIPAP Qty: 1 RF: 0 Referrals: Sriram Badillo MD [Primary Care Provider] -
[2018-12-30 14:31] VITALS: BP 159/66; PULSE 68; O2SAT 99
[2018-12-30] MEDS: CLINDAMYCIN 600 MG/50 ML PIGGYBACK 50 MG IV (14:31)
[2018-12-30 14:36] LABS: Add Manual Diff / Slide Review NO; Basophils Absolute Auto 0 /uL (0-100); Basophils Percent Auto 0.4 % (0-2); Eosinophils Absolute Auto 200 /uL (0-450); Eosinophils Percent Auto 1.7 % (2-4); Hematocrit 35.6 % (36-46); Lymphocytes Absolute Auto 2000 /uL (1100-4500); Lymphocytes Percent Auto 18.6 % (25-40); Mean Corpuscular HGB Conc 33.9 % (30-36); Mean Corpuscular Hemoglobin 31.7 PG (26-34); Mean Corpuscular Volume 93.5 fL (80-100); Monocytes Absolute Auto 900 /uL (0-900); Monocytes Percent Auto 8.2 % (3-14); Neutrophils Absolute Auto 7500 /uL (1500-7000); Neutrophils Percent Auto 71.1 % (50-75); Platelet Count 215 X10^3/uL (150-400); Red Cell Distribution Width 13.8 % (11.6-14.8); White Blood Cell Count 10.6 X10^3/uL (4.5-11.0)
--- NOTE | 2018-12-30 14:36 | PC.NURSE ---
left ankle is red and swelling
[2018-12-30 14:47] LABS: Lactate (Lactic Acid) 1.2 mmol/L (0.7-2.1)
[2018-12-30 14:48] LABS: Alanine Aminotransferase 18 IU/L (9-52); Albumin 3.9 g/dL (3.5-5.0); Albumin Globulin Ratio 1.1 (1.0-2.8); Alkaline Phosphatase 90 U/L (38-126); Aspartate Aminotransferase 24 IU/L (14-36); Bilirubin Total 0.9 mg/dL (0.2-1.3); Blood Urea Nitrogen 12 mg/dL (7-17); Calcium 9.1 mg/dL (8.4-10.2); Carbon Dioxide 26 mmol/L (22-32); Chloride 103 mmol/L (98-107); Estimated Glomerular Filt Rate > 60.0 mL/min (>60); Globulin 3.7 g/dL (1.7-4.1); Glucose 101 mg/dL (80-110); HEMOLYSIS < 15 (0-50); Potassium 3.5 mmol/L (3.4-5.1); Sodium 137 mmol/L (137-145); Total Protein 7.6 g/dL (6.3-8.2)
[2018-12-30 15:08] LABS: Procalcitonin 0.05 ng/mL (<0.5)
[2018-12-30 16:01] LABS: Bacteria Urine Occasional (0-1); Mucus Urine 1+ (Negative); RBC Urine 0-1/HPF (0-5/HPF); Squamous Epithelial Cell Urine 1-5 /HPF (0-5/HPF); Transitional Epi Cells Urine 0-1/HPF (0-5/HPF); WBC Urine 5-10/HPF (0-5/HPF)
[2018-12-30 16:02] LABS: Culture Indicated Urine Specimen Cultured
== END 2018-12-30 15:56 | disposition home or self-care (01) ==
PROVIDERS: Emergency Provider Emergency Medicine; Family Provider Internal Medicine; PCP Internal Medicine
DX: L03.116 Cellulitis of left lower limb (principal)
CPT/HCPCS: 36591; 80053; 81003; 81015; 83605; 84145; 85025; 87086; 93971; 96365; 99283; 99284

== ENCOUNTER → 2020-06-21 15:57 | Outpatient (CLI) | payer MEDICARE, BC, SELFPAY ==
--- NOTE | 2020-06-21 | DI.MRI.S_ITS ---
PROCEDURE: MR KNEE LT WO CON INDICATIONS: Bilateral primary osteoarthritis of knee TECHNIQUE: Noncontrast sagittal PD fast spin echo and T2 fast spin echo with fat saturation, sagittal 3-D FLASH with fat saturation; coronal T1 spin echo and PD fast spin echo with fat saturation, and axial PD fast spin echo with fat saturation through the knee. COMPARISON: [facility] [place], CR, XR KNEE ARTHRITIC SERIES BI, 06/06/2020, 15:44. FINDINGS: Image quality: Degraded by body habitus and motion artifact. Menisci: Medial extrusion of the medial meniscus. Amorphous high signal intensity throughout the anterior horn, body, and posterior horn medial meniscus, demonstrating superior and inferior articular surface extension, indicating complex tearing. Linear and amorphous high signal intensity within the lateral meniscal body and posterior horn is present demonstrating superior and inferior articular surface extension, indicating complex tearing. Cruciate ligaments: The anterior cruciate ligament is not well seen secondary to motion artifact and body habitus, but is grossly intact as visualized. Posterior cruciate ligament is intact. Medial structures: The medial collateral ligament appears intact. Moderate fluid deep to the medial collateral ligament is present. Visualized portions of the pes anserinus tendons appear normal. No abnormal bursal fluid. Lateral structures: The lateral collateral ligament, long and short heads of the biceps femoris tendon appear intact. The popliteus tendon appears normal. Iliotibial band appears normal. Anterior structures: The quadriceps and patellar tendons appear intact. Patellar alignment is normal. No femoral trochlear dysplasia or ventral trochlear prominence. No edema in the infrapatellar fat pad. Bones and cartilage: No bone marrow contusions or fractures. There is mild subchondral degenerative marrow edema within the weight-bearing aspects of the medial femoral condyle and medial tibial plateau as well as the medial patellar facet. Severe tricompartmental periarticular osteophyte formation is present. Severe articular cartilage loss diffusely overlies the weight-bearing aspects of the medial femoral condyle, medial tibial plateau, patellar apex and medial patellar facet. Mild articular cartilage loss overlies the lateral patellar facet and lateral femoral trochlea as well as the weight-bearing aspects of the lateral femoral condyle and lateral tibial plateau. Joint space: There is a moderate knee joint effusion and a small Austin's cyst. Multiple intra-articular loose bodies are present, largest of which is in the anterior central aspect of the knee joint measuring 15 mm. Normal appearing synovial plicae are incidentally noted. IMPRESSION: 1. Significantly limited examination secondary to body habitus and motion artifact. 2. Severe tricompartmental osteoarthritis with associated articular cartilage loss. 3. Knee joint effusion, Austin's cyst, and intra-articular loose bodies. 4. Medial collateral ligament bursitis. 5. Medial and lateral meniscal tearing. Dictated by: Phillip Perry M.D. on 06/22/2020 at 11:04 Approved by: Phillip Perry M.D. on 06/22/2020 at 11:08
== END ==
PROVIDERS: Family Provider Internal Medicine; PCP Internal Medicine; Referring Provider Orthopaedic Surgery; Visit Provider Orthopaedic Surgery
DX: M17.0 Bilateral primary osteoarthritis of knee (principal); S83.232A Complex tear of medial meniscus, current injury, left knee, initial encounter; S83.272A Complex tear of lateral meniscus, current injury, left knee, initial encounter; M71.22 Synovial cyst of popliteal space [Baker], left knee; M71.562 Other bursitis, not elsewhere classified, left knee; M25.462 Effusion, left knee
CPT/HCPCS: 73721

== ENCOUNTER → 2020-07-23 14:04 | Outpatient (CLI) | payer MEDICARE, OTHER, SELFPAY ==
[2020-07-23 15:15] LABS: COVID19 -Nasal RAPID Negative (Negative)
== END ==
PROVIDERS: Family Provider Internal Medicine; PCP Internal Medicine; Visit Provider Physician Assistant
DX: Z01.812 Encounter for preprocedural laboratory examination (principal); Z20.822 Contact with and (suspected) exposure to COVID-19
CPT/HCPCS: 87635; C9803

== ENCOUNTER 2020-07-24 08:20 | Day surgery (SDC) | payer MEDICARE, OTHER, SELFPAY ==
[2020-07-24] VITALS (13 sets, daily range): BP systolic 104–156; BP diastolic 53–80; PULSE 53–63; RESP 13–18; TEMP 35.8–36.9; O2SAT 95–100; BMI 39.9
--- NOTE | 2020-07-24 06:00 | DI.RAD.S_ITS ---
PROCEDURE: XR KNEE LT 1TO2V INDICATIONS: post op films TECHNIQUE: 2 view(s) of the knee acquired. COMPARISON: [facility], CR, KNEE 3V LEFT, 08/23/2015, 16:21. FINDINGS: Bones: Patient is status post knee joint arthroplasty. Hardware components are in expected positions. Visualized bony structures are intact. Soft tissues: Overlying postoperative changes are noted. IMPRESSION: Postop changes from left total knee arthroplasty with anatomic left knee alignment. Dictated by: Aki Teresa M.D. on 07/24/2020 at 17:00 Approved by: Aki Teresa M.D. on 07/24/2020 at 17:01
[2020-07-24] MEDS: LACTATED RINGERS 1,000 ML 42 ML IV ×2 (12:30→15:35)
[2020-07-24] MEDS: VANCOMYCIN 1,000 MG/200 ML PIGGYBACK 200 MG IV (12:37)
[2020-07-24] MEDS: ACETAMINOPHEN 325 MG TABLET 975 MG PO (12:38)
[2020-07-24] MEDS: MELOXICAM 7.5 MG TABLET 15 MG PO (12:39)
[2020-07-24] MEDS: PREGABALIN 75 MG CAPSULE PO (12:39)
--- NOTE | 2020-07-24 13:43 | PM.PREOP ---
Pre-operative Note COVID-19 COVID-19 status: Negative Interval Note History & Physical reviewed/Exam performed by Physician: Yes Changes to H&P: No
--- NOTE | 2020-07-24 13:43 | PM.OP.1 ---
Operative Date/Time/Diagnoses Date of procedure: 07/24/20 Time of procedure: 13:43 Pre-op diagnosis: left knee osteoarthritis Post-op diagnosis: same Procedure & Clinicians Procedure: left total knee arthroplasty Same procedure as scheduled: Yes Indications: The patient has had progressively worsening left knee pain with radiographic changes consistent with arthritis. Non-operative management has failed and the patient has requested total knee replacement. The risks, benefits and alternatives to surgery were discussed with the patient prior to proceeding. Risks discussed included, but were not limited to, failure to relieve pain, stiffness, infection, nerve damage, deep venous thrombosis, pulmonary embolism, stroke, coma, heart attack, permanent paralysis and , as well as the potential need for eventual revision of the prosthetic. Surgeon: Aisha Jones Lawn Service Supervisor: Claude Bailon Anesthesia Type: General and Spinal Operative Notes Findings: severe left knee osteoarthritis, good stability Closure Type: primary Specimen(s): none sent Prosthetic devices, grafts, tissues, transplants, or devices: [employer]hew Babs BCS 2 size 4 tibia, size 5 femur, Size 10 poly, 32 x 7 and 0.5 mm patella Applied: drain(s) Estimated Blood Loss (mL): 250 Blood products transfused: none Tourniquet time (min): 56 Procedure in detail: The patient was seen in the pre-operative area, where the patient identified the left knee as the operative site and this was marked with my initials. The patient received pre-operative antibiotics, and was taken to the operating room and placed on the operative table in the supine position. After satisfactory anesthesia, a cosmetic chemist out was performed. The left leg was encircled with a tourniquet about the proximal thigh, and the leg was prepared from the toes to the tourniquet with ChloroPrep in the usual fashion and draped through sterile drapes. The leg was elevated and exsanguinated with Eschmark bandage and the tourniquet inflated to [250] mmHg pressure. The knee was approached through an approximately 18 cm incision centered over the patella and carried into the knee through a medial parapatellar arthrotomy. A portion of the medial and lateral meniscus was resected. Soft tissue was carefully mobilized around the patella the patella was measured with a caliper. Bone was resected from the patella and the patellar height was reconstituted with up an appropriate sized patellar component. A cover was then placed on the patella. A small amount of additional medial and lateral meniscus was resected. The visionare guide fit adequately to the distal femur. It looked like an appropriate distal femoral cut and the cut was made without difficulty. The rotation was assessed and the appropriate size femoral guide was placed on the distal femur and finishing cuts were made. There was no evidence of notching. The anterior, posterior and chamfer cuts were then made. The posterior osteophytes and soft tissues were then removed. The posterior capsule was injected with part of a mixture of 60 ml 0.25% Marcaine mixed with 20 ml Exparel for post operative pain control. The remainder of this mixture was injected into the capsule and subcutaneous tissues during cement curing. The tibia was prepared and the visionaire guide fit well to the distal tibia. The rotation was assessed. The patient was placed in extension residual medial and lateral meniscus as well as any residual bone was carefully resected. [No] additional tibia was resected. Hemostasis was achieved especially posteriorly. Additional local was injected into the posterior capsule. The extension gap was assessed and additional releases for gap balancing were performed as necessary. The femoral component was trial was placed and the notch was finished. Trial tibial and femoral components were then placed and the knee placed through a range of motion. Range of motion was [0-130], with good stability throughout the range. The trials were then removed, and the tibia was finished. The bone was prepared with pulsatile lavage, and dried with a sponge. Cement was applied and the final prosthetics placed. Excess cement was removed during and after cement curing. A brief Betadine soak was performed. After confirming there was no extruded cement posteriorly, the final tibial insert was placed. The knee was copiously irrigated and the tourniquet deflated. Hemostasis was obtained with the Bovie. A drain was placed and brought out superolaterally. The capsule was closed with interrupted Vicryl suture. The subcutaneous layer was closed with barbed sutures, and the skin with a running 3-0 V-Lock suture and Surgical glue. An Aquacel Ag dressing was applied and the patient was taken to recovery having tolerated the procedure well. Complications: none Post-operative Condition: stable Disposition: Acute Care Plan for aftercare: The patient will be maintained on a standard total knee replacement protocol with weight bearing as tolerated. The patient will receive anticoagulants and sequential compression devices for DVT prophylaxis. The patient will be discharged home when safe for the home environment.
[2020-07-24] MEDS: CEFAZOLIN 2 GM/100 ML FROZ.PIGGY IV ×2 (14:02→21:18)
--- NOTE | 2020-07-24 14:22 | SUR.OPER ---
Supine on padded OR bed. Pillow under head, arms secured on padded armboards <90 degree abduction. Safety belt across torso. Non-operative leg secured with tape over blanket over lower leg. Operative leg secured in DeMayo/Raji positioner. Foam padded brace at thigh of operative leg.
[2020-07-24] MEDS: BUPIVACAINE 0.5% W/ EPI (PF) 30 ML VIAL INJ (14:37)
[2020-07-24] MEDS: BUPIVACAINE LIPOSOME 266 MG/20 ML VIAL INJ (14:37)
[2020-07-24] MEDS: LACTATED RINGERS 1,000 ML 100 ML IV (17:04)
[2020-07-24] MEDS: IBUPROFEN 400 MG TABLET PO ×2 (17:06→20:24)
[2020-07-24] MEDS: ACETAMINOPHEN 325 MG TABLET 650 MG PO (20:24)
[2020-07-24] MEDS: ASPIRIN EC 81 MG TABLET PO (20:24)
[2020-07-24] MEDS: DOCUSATE 100 MG CAPSULE PO (20:24)
[2020-07-25] MEDS: IBUPROFEN 400 MG TABLET PO ×4 (01:49→14:27)
[2020-07-25] MEDS: LACTATED RINGERS 1,000 ML 100 ML IV (01:49)
[2020-07-25] MEDS: CEFAZOLIN 2 GM/100 ML FROZ.PIGGY IV (05:29)
[2020-07-25 05:36] VITALS: BP 111/62; PULSE 52; RESP 16; TEMP 36.6; O2SAT 99
[2020-07-25 05:51] LABS: Hemoglobin 10.4 g/dL (12.0-16.0)
--- NOTE | 2020-07-25 07:13 | PM.PNPO.1 ---
Subjective Subjective Date Patient Seen: 07/25/20 Time Patient Seen: 07:13 Interval history: Patient's pain is mild. Denies fever chills. No nausea or vomiting. Patient lives on her son's property. Both sons are very near by. She has [address] Patient has been up a couple times to use the bedside commode. Exam Vital Signs (past 8 hours): - 07/24/20 23:51 07/25/20 05:36 Temperature 97.5 F L 97.9 F Pulse Rate 53 L 52 L Respiratory Rate 16 16 Blood Pressure 119/64 111/62 Pulse Oximetry 100 99 Oxygen Delivery Method Room Air,CPAP Oxygen Flow Rate 0 Narrative Exam Narrative: Pleasant 75-year-old female resting comfortably in bed in no apparent distress. Abel dressing is on and functioning. Dressing is clean, dry and intact. Motor functions intact distal left lower extremity. Sensation grossly intact to light touch distal left lower extremity. Both legs are warm and dry. 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) Essential hypertension Excessive daytime sleepiness (~2008) Generalized osteoarthritis GERD without esophagitis Intentional weight loss Intentional weight loss Mixed hyperlipidemia Morbid obesity with BMI of 40.0-44.9, adult Nocturnal hypoxemia Obstructive sleep apnea of adult (~2008) Other pulmonary embolism with acute cor pulmonale Primary osteoarthritis of left knee Pulmonary emboli (~2007) Seasonal allergies Stasis dermatitis Venous insufficiency Surgical History H/O bilateral cataract extraction History of cholecystectomy History of salpingo-oophorectomy Social History marital status: number of children: 2 household members: family and none lives independently: Yes caregiver/support person: No housing: house education level: college pino/adventism: [employer] Smoking Status: Never smoker alcohol intake: never substance use type: does not use Type(s) of exercise: walking additional social history: 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 Mobilize with physical therapy. Weightbearing as tolerated. Standard total knee protocol. Possible discharge this afternoon.
[2020-07-25 08:10] VITALS: BP 140/55; PULSE 57; RESP 17; TEMP 36.7; O2SAT 99
[2020-07-25] MEDS: DOCUSATE 100 MG CAPSULE PO (10:46)
[2020-07-25] MEDS: ASPIRIN EC 81 MG TABLET PO (10:46)
[2020-07-25] MEDS: MULTIVITAMIN 1 TABLET 1 TAB PO (10:46)
[2020-07-25] MEDS: CHOLECALCIFEROL (VITAMIN D3) 1,000 UNIT TABLET 1000 UNIT PO (10:46)
[2020-07-25] MEDS: ACETAMINOPHEN 325 MG TABLET 650 MG PO ×2 (10:46→14:27)
[2020-07-25] MEDS: VITAMIN B COMPLEX 1 CAPSULE 1 CAP PO (10:47)
--- NOTE | 2020-07-25 11:23 | CM.DANOTE ---
Addendum entered by ADALBERTO Edward 07/25/20 15:17: ADD: Per Ortho PA, pt remains stable and orders for d/c home later today. Per PT, home with assist and outpt PT. Plan: Patient to d/c home this evening via spouse and no SW needs at this time. BF Original Note: Patient is a 75 year old female who was admitted on 07/24/20 for LTKA. Pt has MCR and PRE DIM for insurance and her PCP is Dr. Sriram Badillo. EMR was reviewed. Per Ortho PA, pt with mild pain and no N/V and tolerated procedure well and pending PT could possibly d/c home this afternoon. Per PT, recommending safe d/c home with family assist. SW met bedside with pt and explained role and she confirms that she lives in [place] on her son's property in a small cabin and is independent at baseline and helps care for her 6 yo granddtr but knee pain has been limiting her ability to ambulate and complete some chores. Pt confirms that she feels quite good and no concerns with plan of d/c home and son Walt can transport at d/c. Pt's also has another son who lives just down the road and both can be available for assist and are supportive. Pt denies any hx of HH or SNF and quite motivated to continue her healing and daily activities. Plan: SW to follow for likely plan of d/c home later today vs tomorrow pending drain and managed pain. SW to follow for any further needs and son can provide transport home at d/c. ADALBERTO Edward Discharge Planning/Care Management CM Discharge Assessment Start: 07/25/20 11:21 Freq: Status: Active Protocol: Document 07/25/20 11:21 (Rec: 07/25/20 11:23 [id number]) Discharge Planning Assessment Assigned Payroll Human Resources Assistant ADALBERTO Roblero DPOA/Assigned Designee Name silvia Godoy Contact Information [phone] Advance Directives? No Advance Directives on File No History Provided By Patient,Medical Record Has Patient been admitted in last 30 No days? Prior Living Arrangements House Household Members none Comment Lives on same property as son but has own cabin and helps care for her 6 yo granddtr Type of transporation used prior to Drives own vehicle admit Independent with ADL's Yes Is patient alert and oriented? Yes Needs Assistance With Home Chores / Shopping Caregiver for Another Yes: helps with young granddtr Patient/Family Preference OP PT Therapy Barriers to Discharge No Discharge Plan Home Community Services Physical Therapy Transportation Arrangement Son can provide transport at d /c to home Referrals Initiated None needed Whiteboard Updated in Patient Room with Yes name and ext. # of Payroll Human Resources Assistant Review Status In Process Please Provide Date Initial DC 07/25/20 Assessment Was Performed Next Review Type Continued Stay Review Pre-Anesthesia Assessment Start: 07/23/20 11:00 Freq: Status: Complete Protocol: Document 07/23/20 11:00 [facility] (Rec: 07/23/20 11:09 [facility] [id number]) Pre-Anesthesia Assessment Preferred Name Magalis or Jazlyn Patient Information Reviewed Via Chart Review,Phone Assessment Assessment Completed With Patient Diagnostic Results BMP/CMP,CBC,EKG,Urinalysis Comment A1c Primary Care Provider Sriram Badillo Medical Clearance Received Yes Seen Specialist in Last 12 Months Yes Specialist Seen Orthopedist Preferred Language Northern Irish Maltster Required No Height 167.64 cm Hearing Ability Hard of Hearing Visual Assist Glasses Dentition Type Teeth, Natural Present,Teeth, Missing Barriers to Learning Auditory,Visual Other Aids No Hx Anesthesia Reactions No Hx Family Anesthesia Reaction No Hx Malignant Hyperthermia No Hx Blood Transfusions No Hx Blood Transfusion Reaction No Anesthesia Review Requested No Mixing House 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 No Does patient have SCHILLING/SOB No Hx Sleep Apnea Yes CPAP/BIPAP use prescribed and used routinely Will Bring CPAP/BIPAP DOS Yes Currently Taking a Beta Terence No Can You Climb a Flight of Stairs Without Yes SOB Hx Chest Pain No Hx SOB No: PE Hx Syncope or Dizziness Yes: vertigo r/t ear being plugged up Anti-Coagulant Therapy No: Recommended life-long therapy; declined Has a Assisted Living Coordinator No Cardiac Testing No Hx Pacemaker/ICD No Cardiac Clearance Received Not Applicable Diet Type At Home Regular dysphagia No Comment eats healthy, Urinary Catheter Present No Hx Urinary Self Catheterization No Diabetes No HgbA1C 5.8 Date 06/12/20 Patient No Lactating No Hx Drug Resistant Organism No Presence of External or Internal Medical Yes: Vic IOLs, CPAP Devices Have you had any close contact with No someone diagnosed with COVID-19? Are you experiencing any of these No symptoms symptoms? Evaluation/Screening for possible COVID- Yes 19 infection completed? Comment Covid test IH 07/23/20 Marital Status / Lives With none Prior Living Arrangements House Number of Floors (Floors) One Floor Number of Stairs To Enter/Railing? 2 steps into the cabin on son' s property Support System Family,Friend(s) Does the Patient Have Assistance After Yes Surgery Patient Discharge Plan Description Home Health Feels Safe in Current Environment Yes Been Physically Hurt or Threatened By a No Person in Current Environment Do you have thoughts of harming yourself None or others? Are you currently considering suicide? No Do you have a plan to hurt yourself or No Plan others? Do You Have Any Spiritual Beliefs That No May Affect Your HC Choices? Do You Have Any Cultural Practices That No May Affect Your HC Choices? Spiritual Referral LDS Who Can We Speak to About Patient's Care Family & Friends Identifying Code for Release of Patient Declined Information Health Care Proxy/Next of Kin Trace Jackson Health Care Proxy Phone Number Reed - [phone]; Walt [phone]. [phone] Emergency Contact Name Trace Jackson Emergency Contact Phone Number Reed - [phone]; Walt Advance Directives? No Power of Red Hat Linux Engineer No PAC Instructions Assistance for 24 hours post- op,Bring CPAP/BIPAP,Do not shave/clip surgical site, Durable medical equipment, Medications to take/avoid, Nasal antibiotic,No ETOH/ petroleum product on skin DOS, NPO,Ortho class,Post-op transportation,Pre-op antibiotic,Pre-surgical wash, Sensory aids,Sturdy shoes/ comfortable clothes,Do not bring valuables and remove jewelry
[2020-07-25 11:35] VITALS: BP 121/63; PULSE 63; RESP 19; TEMP 36.7; O2SAT 99
--- NOTE | 2020-07-25 11:54 | PT.IIE ---
Current Diagnoses Morbid (severe) obesity due to excess calories (07/24/20) Obstructive sleep apnea (adult) (pediatric) (07/24/20) Other pulmonary embolism without acute cor pulmonale (07/24/20) Unilateral primary osteoarthritis, left knee (07/24/20) Body mass index [BMI]40.0-44.9, adult (07/24/20) Surgery Performed Operation Date: 07/24/20 13:30 Actual Procedures p Total Knee Arthroplasty(Left) - Aisha Jones MD Surgical History (Last Reviewed 07/25/20 @ 07:15 by Claude Bailon PA-C) H/O bilateral cataract extraction History of cholecystectomy History of salpingo-oophorectomy Medical History (Last Reviewed 07/25/20 @ 07:15 by Claude Bailon PA-C) 1+ pitting edema Arthritis Bilateral knee pain 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) Essential hypertension Excessive daytime sleepiness (~2008) Generalized osteoarthritis GERD without esophagitis Intentional weight loss Intentional weight loss Mixed hyperlipidemia Morbid obesity with BMI of 40.0-44.9, adult Nocturnal hypoxemia Obstructive sleep apnea of adult (~2008) Other pulmonary embolism with acute cor pulmonale Primary osteoarthritis of left knee Pulmonary emboli (~2007) Seasonal allergies Stasis dermatitis Venous insufficiency Physical Therapy Inpatient Evaluation/Re-Eval M1 PT/OT-IP Prior Functional Status Start: 07/25/20 08:21 Freq: NEEDED Status: Active Protocol: Document 07/25/20 09:06 (Rec: 07/25/20 11:54 [id number]) Medical Review Prior Functional Status Medical History Reviewed Yes Diet/Fluid Consistency Regular Communication no deficits noted. able to make needs known Mobility and Gait Use FWW in the AM occasionally d/t stiffness. Uses walking sticks for community sometimes . Activities of Daily Living and IADL's IND for ADLs and son does shopping somethimgs, IND for IADLs. Pt able to drive Prior Functional Level (Other details) Son checks on her in adaily basis. Social History Household Members none Living Arrangements House Number of Floors (Floors) One Floor Number of Stairs To Enter/Railing? 2 [place] without rails Home Environment Standard Height Toilet,Walk in Shower Home Equipment Front Wheel Walker,Shower Seat with Backrest,Hand Held Shower,Grab Bars In Shower Employment Status Retired Additional Social History Comment Pt lives in [facility] on her son's property in a small cabin and is independent at baseline and helps care for her 6 yo granddtr but knee pain has been limiting her ability to ambulate and complete some chores. Pt's also has another son who lives just down the road and both can be available for assist and are supportive. Pt denies any hx of HH or SNF and quite motivated to continue her healing and daily activities. M2 PT-IP Current Condition Start: 07/25/20 08:21 Freq: NEEDED Status: Active Protocol: Document 07/25/20 09:06 HH (Rec: 07/25/20 11:54 HH [id number]) Physical Therapy Current Condition Current Condition Evaluation Date 07/25/20 Treatment Diagnosis L TKA, difficulty in walking Onset Date 07/24/20 Weight Bearing Status Weight Bearing Status Weight Bear as Tolerated M3 PT-IP Subjective Start: 07/25/20 08:21 Freq: NEEDED Status: Active Protocol: Document 07/25/20 09:06 HH (Rec: 07/25/20 11:54 [id number]) Subjective Physical Therapy Visit Type Type Initial Evaluation Visit Start Time 09:06 Visit Stop Time 09:35 Total Visit Minutes 29 Number of LABORER CONSTRUCTION OR LEAK GANG Visits 0 Physical Therapy Visit Comments Patient Comments I dont feel pain Patient Goals to return home with her 2 sons . Therapy Pain Assessment Pain Present Pain Present Denied Pain M4 PT-IP Mobility and Gait Start: 07/25/20 08:21 Freq: NEEDED Status: Active Protocol: Document 07/25/20 09:06 HH (Rec: 07/25/20 11:54 HH [id number]) PT-Bed Mobility Assessment Supine to Sit Supine to Sit Standby Assistance Scooting Scooting to Edge of Bed Standby Assistance PT-Transfer Assessment Sit to and From Stand Sit to and from Stand Standby Assistance,Use of Upper Extremities Equipment Transfer Assistive Device Gait Belt,Front Wheeled Walker Orthotic/Prosthetic Devices or Brace: No Transfers Transfer Destination Bed,Chair Transfer Technique Stand Step Pivot Transfer Ability Level of Assist Standby Assistance,Use of Upper Extremities Comments Mobility Comments Pt was in bedside chair upon PT arrival. Denied discomfort but stiffness at L knee only. Pt completed 2 mins of seated heel slide. She then stood up by pushing off from FWW with slight staggered stance with SBA. She then amb down in hallway for a total of 160 ft with FWW SBA. She was able to do step over pattern but does show mild antalgic sign. She also completed 3 steps x 2 sets with B rails CGA. Educated pt to have both son to be on both sides to be her support for steps climbing since pt does not have handrails. Pt demonstrated good techniques and good safety awareness. She then returned to room chair safely. No increased discomfort noted . Call light placed within reach. Gait Assessment Gait Gait Assistance Required: Standby Assistance Distance (Feet) 160 Able to Maintain Weight Bearing Status Yes During Gait Assistive Devices Assistive Device Gait Belt,Front Wheeled Walker Orthotic/Prosthetic Devices or Brace: No Gait Deviations General Gait Pattern Antalgic,Decreased Stride Length,Decreased Feet Clearance Factors Limiting Gait Function Factors Limiting Gait Function Decreased Activity Tolerance, Decreased Strength,Limited Range of Motion,Pain,Poor Balance Comments Gait Comments see mobility comments. Stair Climbing Assessment Evaluation Level of Assist On Stairs Contact Guard Assistance Devices Stair Climbing Assistive Devices Left Railing,Right Railing Technique/Endurance Stair Climbing Direction Ascend and Descend Stair Climbing Technique Step to Step Number of Steps Climbed 3 Query Text: Stair Climbing Set # Repetitions (reps) 2 Comments Stair Climbing Comments see mobility comments. PT-Balance Assessment Sitting Balance and Reactions Static Sitting Balance Ability Normal Dynamic Sitting Balance Ability Normal Standing Balance and Reactions Static Standing Balance Ability Good Dynamic Standing Balance Ability Good Device Used FWW M5 PT-IP Objective Assessments Start: 07/25/20 08:21 Freq: NEEDED Status: Active Protocol: Document 07/25/20 09:06 (Rec: 07/25/20 11:54 [id number]) Orientation Orientation/Cognition Level of Alertness Alert Orientation Name,Age,Birthday,Month,Date, Year,Day of Week,Place, Situation Language Function Ability No Deficits Noted Safety Awareness Understands Safety Issues Memory Description No Deficits Noted Gross Range of Motion Upper Extremity ROM Assessment Within Functional Limits Lower Extremity ROM Assessment Left Impaired Impairments L knee AROM 5-80 degrees Strength Upper Extremity Strength Assessment Within Functional Limits Lower Extremity Strength Assessment Left Impaired Knee 3+/5 Coordination Assessment Gross Coordination Gross Coordination WNL Sensation Assessment Sensation Gross Sensation WNL Muscle Tone Muscle Tone WNL Yes M6 PT-IP Treatment Start: 07/25/20 08:21 Freq: NEEDED Status: Active Protocol: Document 07/25/20 09:06 (Rec: 07/25/20 11:54 [id number]) Physical Therapy Treatment Exercises Exercises Ankle Pumps,Gluteal Sets,Quad Sets,Heel Slides Education Education Provided Precautions,Weight Bearing Status,Post-Op Packet,Safety M7 PT-IP Assessment and Plan Start: 07/25/20 08:21 Freq: NEEDED Status: Active Protocol: Document 07/25/20 09:06 (Rec: 07/25/20 11:54 [id number]) PT Summary Assessment and Plan Potential Rehabilitation Potential Excellent Status of Condition at Evaluation Stable Summary Impairments Pain,ROM,Strength,Balance,Bed Mobility,Transfers,Gait, Activity Tolerance Progress Towards Goals Safe For Discharge Assessment Summary Pt is a 75yo female s/p POD 1 L TKA. PLOF = pt was very independent who lives alone in a cabin behind her son's house. Pt did not use any AD and was able to drive IND for IADLs. CLOF= pt progress very well without c/o discomfort. She walked 160 ft with step over pattern FWW SBA. Completed stair climbing 3 steps x 2 sets with step to pattern. Educated pt to have 2sons to be on both side for support when she gets home. Pt overall shows very good understanding and safety awareness. She is safe to DC from PT and expect her to go home with family assistance and outpatient PT Frequency of Treatment Frequency Of Treatment Discharge Recommendations To Nursing Amount of Assist Needed Standby Assistance Discharge Recommendations PT Discharge Recommendations Home with Assistance, Outpatient PT Transportation Needs at Discharge Private Vehicle
--- NOTE | 2020-07-25 13:08 | PM.DS.1 ---
History of Present Illness History of Present Illness Date Patient Seen: 07/25/20 Time Patient Seen: 13:08 Chief complaint: LEFT TKA *OPB* Narrative: See progress note Discharge Providers Provider Discharge Date: 07/25/20 Primary care physician: Sriram Badillo MD Consults: 07/23/20 17:12 Consult to Respiratory Therapy Evaluate & Treat Comment: MARJAN will bring CPAP Physician Instructions: Evaluate and treat 07/24/20 06:00 Consult to Anesthesiology Routine Comment: Consulting Provider: Anesthesiologist Reason for consultation: Regional block for post operative pain control 07/24/20 09:28 Consult to Respiratory Therapy Evaluate & Treat Comment: Physician Instructions: Evaluate and treat 07/24/20 16:53 Consult to Discharge Planning Routine Comment: Consult to Physical Therapy Evaluate & Treat Comment: Physician Instructions: postop TKA protocol Consult to Respiratory Therapy Evaluate & Treat Comment: Physician Instructions: Evaluate and treat Discharge provider: Claude Bailon PA-C Summary Hospital Course Discharge Diagnosis: left knee osteoarthritis Hospital Course: rocedure: left total knee arthroplasty Same procedure as scheduled: Yes Indications: The patient has had progressively worsening left knee pain with radiographic changes consistent with arthritis. Non-operative management has failed and the patient has requested total knee replacement. The risks, benefits and alternatives to surgery were discussed with the patient prior to proceeding. Risks discussed included, but were not limited to, failure to relieve pain, stiffness, infection, nerve damage, deep venous thrombosis, pulmonary embolism, stroke, coma, heart attack, permanent paralysis and , as well as the potential need for eventual revision of the prosthetic. Surgeon: Aisha Jones Operations General Agent: Claude Bailon Anesthesia Type: General and Spinal Operative Notes Findings: severe left knee osteoarthritis, good stability Closure Type: primary Specimen(s): none sent Prosthetic devices, grafts, tissues, transplants, or devices: [employer] 2 size 4 tibia, size 5 femur, Size 10 poly, 32 x 7 and 0.5 mm patella Applied: drain(s) Estimated Blood Loss (mL): 250 Blood products transfused: none Tourniquet time (min): 56 Patient admitted for the above-mentioned procedure. Patient consented to the same. Patient taken to the operating room yesterday and underwent left total knee arthroplasty. Patient back in her room recovering well as in stable condition. Discharge home today in stable condition. Status at Discharge Cognitive/behavioral status at discharge: at baseline, oriented Functional status at discharge: uses cane/walker Overall status at discharge: patient is progressing back to baseline Time Spent with Patient Time spent: Less than 30 minutes Exam Vital Signs (past 8 hours): - 07/25/20 05:36 07/25/20 08:10 07/25/20 11:35 Temperature 97.9 F 98.1 F 98.1 F Pulse Rate 52 L 57 L 63 Respiratory Rate 16 17 19 Blood Pressure 111/62 140/55 L 121/63 Pulse Oximetry 99 99 99 Oxygen Delivery Method Room Air Oxygen Flow Rate 0 Narrative Exam Narrative: See progress note 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) Essential hypertension Excessive daytime sleepiness (~2008) Generalized osteoarthritis GERD without esophagitis Intentional weight loss Intentional weight loss Mixed hyperlipidemia Morbid obesity with BMI of 40.0-44.9, adult Nocturnal hypoxemia Obstructive sleep apnea of adult (~2008) Other pulmonary embolism with acute cor pulmonale Primary osteoarthritis of left knee Pulmonary emboli (~2007) Seasonal allergies Stasis dermatitis Venous insufficiency Surgical History H/O bilateral cataract extraction History of cholecystectomy History of salpingo-oophorectomy Social History marital status: number of children: 2 household members: none lives independently: Yes caregiver/support person: No housing: house education level: college pino/restorationist: Miranda Smoking Status: Never smoker alcohol intake: never substance use type: does not use Type(s) of exercise: walking additional social history: 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 [place] (both parents work) Discharge Assessment & Plan Assessment and Plan Assessment: Progressing as expected status post left total knee arthroplasty Plan of Treatment: Discharge home today in stable condition Discharge Plan Discharge Plan Patient Disposition: Home Discharge orders & Medications Discharge Orders: Discharge (Order); Ordered 07/25/20 Ordered By: Claude Bailon Prescriptions: New acetaminophen 325 mg Tablet 650 mg PO TID Qty: 60 RF: 0 aspirin 81 mg Tablet,Delayed Release (Dr/Ec) 81 mg PO BID Qty: 60 RF: 0 ibuprofen 400 mg Tablet 400 mg PO Q4HR Qty: 60 RF: 0 Continued multivitamin Tablet 1 tab PO DAILY RF: 0 vitamin B complex Capsule 1 cap PO DAILY RF: 0 cholecalciferol (vitamin D3) [Vitamin D3] 25 mcg (1,000 unit) Capsule 25 mcg PO DAILY RF: 0 Follow up/Referrals: Sriram Badillo MD [Primary Care Provider] - Aisha Jones MD [Physician] - (2 weeks ) Diet/Activity/Treatments Diet: Diet as Tolerated Activity: WBAT Cold/Heat Therapy: ice as needed Skin/Wound/Dressing Care Report to your healthcare provider any signs of infection, such as:: chills, fever, increased pain, unusual drainage and unusual redness Dressing: keep clean and dry Visit Report/Discharge Packet Instructions: DI for Knee Replacement Stand Alone Forms: Surgery Discharge Discharge Data Primary Care Provider: Sriram Badillo Attending Provider: Aisha Jones
--- NOTE | 2020-07-25 14:52 | PC.NURSE ---
Hemovac and IV removed by nursing informatics analyst and his instructor. Patient tolerated well. FANTASMA dressing remains intact without drainage noted. Discharge instructions and home care handouts reviewed with patient, she states understanding and has no further questions or concerns at this time. Escorted out via wheelchair with all belongings to home with her sons. Patient states she has outpatient PT and follow up appointment scheduled. Patient instructed to call MD with questions or concerns.
== END 2020-07-25 14:56 | disposition home or self-care (01) ==
LOC: OR 08:23 → AC 13:49
PROVIDERS: Family Provider Internal Medicine; PCP Internal Medicine; Referring Provider Orthopaedic Surgery; Visit Provider Orthopaedic Surgery
PROC: 0SRD0JZ Replacement of Left Knee Joint with Synthetic Substitute, Open Approach (ICD-10-PCS; CPT 27447; principal; 2020-07-24 13:30)
DX: M17.12 Unilateral primary osteoarthritis, left knee (principal); G47.33 Obstructive sleep apnea (adult) (pediatric); E66.01 Morbid (severe) obesity due to excess calories; Z68.41 Body mass index [BMI] 40.0-44.9, adult; Z86.711 Personal history of pulmonary embolism
CPT/HCPCS: 27447; 36415; 73560; 85014; 85018; 97161; C1776; C9290; J0690; J2274; J2704

== ENCOUNTER → 2020-08-06 10:13 | Outpatient (CLI) | payer MEDICARE, OTHER, SELFPAY ==
[2020-07-24 16:58] VITALS: BMI 39.9
--- NOTE | 2020-08-06 10:16 | DI.US.S_ITS ---
PROCEDURE: US PERIP VENOUS LOW EXTREM LT INDICATIONS: EDEMA, PAIN 2 WEEKS POST TKA TECHNIQUE: Real-time imaging, as well as color and pulse Doppler interrogation, were performed of the lower extremity deep veins from the inguinal ligament to the popliteal fossa. COMPARISON: [facility], [facility] VENOUS LOW EXTREM LT, 12/30/2018, 12:43. FINDINGS: The common femoral, femoral and popliteal veins are normally compressible, and free of intraluminal thrombus. Color and pulse Doppler demonstrate normal phasic intraluminal flow. There is normal augmentation response to distal compression maneuver. IMPRESSION: No deep venous thrombosis identified within the left lower extremity. Dictated by: Sai Almazan [facility] Interpreted: Austen Mccurdy MD on 08/06/2020 at 11:19 Approved by: Austen Mccurdy M.D. on 08/06/2020 at 15:45
== END ==
PROVIDERS: Family Provider Internal Medicine; PCP Internal Medicine; Referring Provider Orthopaedic Surgery; Visit Provider Orthopaedic Surgery
DX: R60.0 Localized edema (principal); G89.18 Other acute postprocedural pain; Z96.652 Presence of left artificial knee joint
CPT/HCPCS: 93971

== ENCOUNTER 2020-11-07 13:45 | Outpatient (RCR) | payer MEDICARE, BC, SELFPAY ==
--- NOTE | 2020-07-17 10:15 | PT.OIE ---
Current Diagnoses Bilateral primary osteoarthritis of knee (07/17/20) Difficulty in walking, not elsewhere classified (07/17/20) Weakness (07/17/20) Past Medical History (Last Reviewed 12/28/18 @ 21:37 by Penelope Bryan DO) Excessive daytime sleepiness (~2008) Morbid obesity with BMI of 40.0-44.9, adult Nocturnal hypoxemia Obstructive sleep apnea of adult (~2008) Visit Care Team Role Provider Type Sriram Badillo MD Family Provider Physician Primary Care Provider Specialty: Internal Medicine Address: [address] [place] [address], [id number] Email: [email or web address] Attending Provider Physician Referring Provider Specialty: Orthopedic Surgery Address: [address] [place] [address], [id number] Email: [email or web address] Physical Therapy Initial Evaluation PT-OP-A Visit Information Start: 07/16/20 13:38 Freq: Status: Active Protocol: Document 07/17/20 09:07 SAK (Rec: 07/17/20 10:06 SAK [id number]) Out-Patient Physical Therapy Visit Information Visit Information Visit Type Initial Evaluation Visit Start Time 09:00 Visit Stop Time 09:45 Total Visit Minutes 45 Visit Number 10 Evaluation Information Evaluation Date 07/17/20 PT-OP-B Current Condition Start: 07/16/20 13:38 Freq: Status: Active Protocol: Document 07/17/20 09:07 SAK (Rec: 07/17/20 10:06 SAK [id number]) Current Condition History of Current Condition Onset Date years Current Complaints left knee TKA 07/24/20 History of Current Condition Long history left knee pain, wasn't approved for TKA until she lost some weight. No wcheduled 07/24/20. States her knee is hard to bend, very painful when bends her leg with walking. Has 3 stairs to enter, no railing but states she will have her son to help. as throw rug at front door and at shower but are nonskid. Lives alone on son's property (3 min away). Has PT scheduled after surgery. Has FWW. Treatment Goals Patient/Caregiver Goals Recover full function of her left knee Prior Functional Status Baseline Function- ADL's Independent Baseline Function- Mobility Independent Baseline Function- Gait no pain or limp Baseline Function- Work/School retired Baseline Function- Recreation/Hobbies limited by pain Current Functional Impairments (Reported) Functional Limitations- ADL's slow and painful Functional Limitations- Mobility/Gait slow and painful, step-to on stairs Functional Limitations- Work/School retired Functional Limitations- Recreation/ limited by pain Hobbies PT-OP-C Subjective Start: 07/16/20 13:38 Freq: Status: Active Protocol: Document 07/17/20 09:07 SAK (Rec: 07/17/20 10:06 SAK [id number]) Patient Questionnaires Lower Extremity Functional Scale LEFS Score 45 PT-OP-G Mobility & Gait Start: 07/16/20 13:38 Freq: Status: Active Protocol: Document 07/17/20 09:07 SAK (Rec: 07/17/20 10:06 SAK [id number]) OP Mobility Evaluation Transfers Sit to Stand independent with use of UE's OP Gait Assessment Gait Gait Assistance Required: Independent Assistive Devices Assistive Device Front Wheeled Walker Gait Deviations General Gait Pattern Antalgic Stair Climbing Evaluation Evaluation Level of Assist On Stairs Independent Devices Stair Climbing Assistive Devices Left Railing,Right Railing Technique/Endurance Stair Climbing Direction Ascend and Descend Stair Climbing Technique Step to Step PT-OP-K Range of Motion Start: 07/16/20 13:38 Freq: Status: Active Protocol: Document 07/17/20 09:07 BASILIO (Rec: 07/17/20 10:06 SAK [id number]) Knee Goniometric Range of Motion Knee Left Knee ROM WFL No Flexion Active (degrees) 60 Flexion Passive (degrees) 80 Extension Active (degrees) 34 Extension Passive (degrees) 20 Right Knee ROM WFL No Flexion Active (degrees) 95 Flexion Passive (degrees) 100 Extension Active (degrees) 10 Extension Passive (degrees) 8 PT-OP-M Strength Start: 07/16/20 13:38 Freq: Status: Active Protocol: Document 07/17/20 09:07 SAK (Rec: 07/17/20 10:06 SAK [id number]) Knee Strength Knee Manual Muscle Testing Left Flexion (S2) 4 Good Extension (L3) 4 Good Right Flexion (S2) 5 Normal Extension (L3) 5 Normal PT-OP-Q Treatments Start: 07/16/20 13:38 Freq: Status: Active Protocol: Document 07/17/20 09:00 [facility] (Rec: 07/17/20 10:10 [facility] [id number]) Self-Care/Home Management Treatment Education Patient Education Home Exercise Program,Pain Management,Safety Other Education advised to have grab bar installed in shower, and railing at front stairs. Instructed in post-op education, including possible need for thigh high compression stocking for edema management. PT-OP-T Assessment and Plan Start: 07/16/20 13:38 Freq: Status: Active Protocol: Document 07/17/20 09:07 [facility] (Rec: 07/17/20 10:06 [facility] [id number]) Physical Therapy Assessment Rehab Potential Rehabilitation Potential Good Evaluation Complexity Number of Personal Factors/Comorbidities 1-2 Number of Body Systems Impaired 3 Clinical Presentation at Evaluation Evolving Impairments Impairments Activity Tolerance,Functional Mobility,Gait,Pain,ROM, Strength Goals Four Impairment limited left knee ROM 32-69 actively Short Term Goal (STG) Improve left knee ROM to 10-95 degrees STG Duration 08/14/20 Penitentiary Goal (LTG) Improve left knee ROM to 0-120 degrees LTG Duration 09/15/20 Three Impairment Lower extremity functional scale 45% Short Term Goal (STG) Improve LEFS to 55% STG Duration 08/14/20 Funeral Director'S Assistant Goal (LTG) Improve LEFS score to at least 70% as measure of improved activity tolerance LTG Duration 09/15/20 Two Impairment gait dysfunction; antalgic Short Term Goal (STG) Patient able to ambulate with FWW with minimal to no limp 200 ft. STG Duration 08/14/20 Funeral Director'S Assistant Goal (LTG) Patient able to ambulate on all usual surfaces with least restrictive device without limp LTG Duration 09/15/20 One Impairment pain left knee limiiting function: 5/10 on pain scale Funeral Director'S Assistant Goal (LTG) Patient able to do all usual activities with pain no greater than 2/10 LTG Duration 09/15/20 Assessment Summary Assessment Patient seen today for pre-op physical therapy visit. Evaluation performed and patient was instructed in home safety, post-op HEP, safe mobility, gait training with use of walker, post-op expectations. She was advised to have a railing installed by her front stairs and grab bars in bathroom for safety. Evaluation revealed she is able to ambulate without assistive device but with antalgic gait pattern, step-to pattern on stairs. She has a front-wheeled walker and can ambulate safely with it with decreased pain, with less than full weight-bearing left LE. She is able to lay down from seated position and return to sitting independently , and move from sitting to standing independently though with need to use UE's. She will benefit from physical therapy post-op to help her fully regain her functional use of her left LE and return to more active and pain-ree lifestyle , ambulating without a limp. She has 2 sons in the area who are able to assist her as needed. Physical Therapy Plan Frequency and Duration Frequency of Treatment 12 weeks Duration of Treatment 8 weeks Plan of Care Start Date 07/17/20 Plan of Care End Date 09/15/20 Therapeutic Interventions Therapeutic Interventions Gait Training,Home Exercise Program,Joint Mobilizations, Manual Therapy,Neuromuscular Re-education,Patient/Caregiver Education,Self-Care/Home Management,Soft Tissue Mobilization,Taping, Therapeutic Activities, Therapeutic Exercises Modalities Cold Pack/Ice Massage,Electric Stimulation Next Visit Focus/Plan Next Note Type Re-Evaluation Next Visit Plan Initiate outpatient TKA rehab left LE
--- NOTE | 2020-07-17 10:16 | PT.OPPOC ---
Physical, Occupational & Speech Therapy At [facility] Current Diagnoses Bilateral primary osteoarthritis of knee (07/17/20) Difficulty in walking, not elsewhere classified (07/17/20) Weakness (07/17/20) Visit Care Team Role Provider Type Sriram Badillo MD Family Provider Physician Primary Care Provider Specialty: Internal Medicine Address: [address] [place] [address], [id number] Email: [email or web address] Aisha Jones MD Attending Provider Physician Referring Provider Specialty: Orthopedic Surgery Address: [address] [place] [address], [phone] Email: [email or web address] Plan Of Care PT-OP-T Assessment and Plan Start: 07/16/20 13:38 Freq: Status: Active Protocol: Document 07/17/20 09:07 BASILIO (Rec: 07/17/20 10:06 [facility] [id number]) Physical Therapy Assessment Rehab Potential Rehabilitation Potential Good Evaluation Complexity Number of Personal Factors/Comorbidities 1-2 Number of Body Systems Impaired 3 Clinical Presentation at Evaluation Evolving Impairments Impairments Activity Tolerance,Functional Mobility,Gait,Pain,ROM, Strength Goals Four Impairment limited left knee ROM 32-69 actively Short Term Goal (STG) Improve left knee ROM to 10-95 degrees STG Duration 08/14/20 Instructional Design Specialist Goal (LTG) Improve left knee ROM to 0-120 degrees LTG Duration 09/15/20 Three Impairment Lower extremity functional scale 45% Short Term Goal (STG) Improve LEFS to 55% STG Duration 08/14/20 Instructional Design Specialist Goal (LTG) Improve LEFS score to at least 70% as measure of improved activity tolerance LTG Duration 09/15/20 Two Impairment gait dysfunction; antalgic Short Term Goal (STG) Patient able to ambulate with FWW with minimal to no limp 200 ft. STG Duration 08/14/20 Correction Goal (LTG) Patient able to ambulate on all usual surfaces with least restrictive device without limp LTG Duration 09/15/20 One Impairment pain left knee limiiting function: 5/10 on pain scale Correction Goal (LTG) Patient able to do all usual activities with pain no greater than 2/10 LTG Duration 09/15/20 Assessment Summary Assessment Patient seen today for pre-op physical therapy visit. Evaluation performed and patient was instructed in home safety, post-op HEP, safe mobility, gait training with use of walker, post-op expectations. She was advised to have a railing installed by her front stairs and grab bars in bathroom for safety. Evaluation revealed she is able to ambulate without assistive device but with antalgic gait pattern, step-to pattern on stairs. She has a front-wheeled walker and can ambulate safely with it with decreased pain, with less than full weight-bearing left LE. She is able to lay down from seated position and return to sitting independently , and move from sitting to standing independently though with need to use UE's. She will benefit from physical therapy post-op to help her fully regain her functional use of her left LE and return to more active and pain-ree lifestyle , ambulating without a limp. She has 2 sons in the area who are able to assist her as needed. Physical Therapy Plan Frequency and Duration Frequency of Treatment 12 weeks Duration of Treatment 8 weeks Plan of Care Start Date 07/17/20 Plan of Care End Date 09/15/20 Therapeutic Interventions Therapeutic Interventions Gait Training,Home Exercise Program,Joint Mobilizations, Manual Therapy,Neuromuscular Re-education,Patient/Caregiver Education,Self-Care/Home Management,Soft Tissue Mobilization,Taping, Therapeutic Activities, Therapeutic Exercises Modalities Cold Pack/Ice Massage,Electric Stimulation Next Visit Focus/Plan Next Note Type Re-Evaluation Next Visit Plan Initiate outpatient TKA rehab left LE Plan of Care Dates Plan of Care Start Date 07/17/20 Plan of Care End Date 09/15/20 Electronically Signed by: Nissa Sanchez, PT 07/17/20 1016 Please Sign and Return: I have reviewed this Plan of Care and certify that the skilled therapy services above are required to meet the patient?s needs. Physician Signature Date Printed Name and Credentials Clinical Instructor Signature Printed Name and Credentials
--- NOTE | 2020-07-31 11:22 | PT-OP ANOTE ---
cancelled due to snow
--- NOTE | 2020-08-02 13:09 | PT.OTRE ---
Current Diagnoses Bilateral primary osteoarthritis of knee (08/02/20) Difficulty in walking, not elsewhere classified (08/02/20) Weakness (08/02/20) Past Medical History (Last Reviewed 07/25/20 @ 13:10 by Claude Bailon PA-C) 1+ pitting edema Arthritis Bilateral knee pain 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) Essential hypertension Excessive daytime sleepiness (~2008) Generalized osteoarthritis GERD without esophagitis Intentional weight loss Intentional weight loss Mixed hyperlipidemia Morbid obesity with BMI of 40.0-44.9, adult Nocturnal hypoxemia Obstructive sleep apnea of adult (~2008) Other pulmonary embolism with acute cor pulmonale Primary osteoarthritis of left knee Pulmonary emboli (~2007) Seasonal allergies Stasis dermatitis Venous insufficiency Surgical History (Last Reviewed 07/25/20 @ 13:10 by Claude Bailon PA-C) H/O bilateral cataract extraction History of cholecystectomy History of salpingo-oophorectomy Visit Care Team Role Provider Type Sriram Badillo MD Family Provider Physician Primary Care Provider Specialty: Internal Medicine Address: [address] [place] [address], [address] Email: [email or web address] Aisha Jones MD Attending Provider Physician Referring Provider Specialty: Orthopedic Surgery Address: [address] [place] [address], [address] Email: [email or web address] Physical Therapy Re-Evaluation PT-OP-A Visit Information Start: 07/16/20 13:38 Freq: Status: Active Protocol: Document 08/02/20 09:04 SAK (Rec: 08/02/20 09:49 SAK [id number]) Out-Patient Physical Therapy Visit Information Visit Information Visit Type Treatment Note Visit Start Time 09:00 Visit Stop Time 10:00 Total Visit Minutes 60 Visit Number 2 Evaluation Information Evaluation Date 07/17/20 PT-OP-B Current Condition Start: 07/16/20 13:38 Freq: Status: Active Protocol: Document 07/17/20 09:07 SAK (Rec: 07/17/20 10:06 SAK [id number]) Current Condition History of Current Condition Onset Date years Current Complaints left knee TKA scheduled for 07/24/20 History of Current Condition Long history left knee pain, wasn't approved for TKA until she lost some weight. Now scheduled 07/24/20. States her knee is hard to bend, very painful when bends her leg with walking. Has 3 stairs to enter, no railing but states she will have her son to help. as throw rug at front door and at shower but are nonskid. Lives alone on son's property (3 min away). Has PT scheduled after surgery. Has FWW. Treatment Goals Patient/Caregiver Goals Recover full function of her left knee Prior Functional Status Baseline Function- ADL's Independent Baseline Function- Mobility Independent Baseline Function- Gait no pain or limp Baseline Function- Work/School retired Baseline Function- Recreation/Hobbies limited by pain Current Functional Impairments (Reported) Functional Limitations- ADL's slow and painful Functional Limitations- Mobility/Gait slow and painful, step-to on stairs Functional Limitations- Work/School retired Functional Limitations- Recreation/ limited by pain Hobbies PT-OP-C Subjective Start: 07/16/20 13:38 Freq: Status: Active Protocol: Document 08/02/20 09:04 [facility] (Rec: 08/02/20 13:09 [facility] [id number]) OP-PT Subjective Patient Comments Patient Comments Patient reports her swelling has been increasing over the past week, not sure she's doing everything she needs to do. Has difficulty bending her knee because it's been so long, I've kept it straight while walking for years due to pain. Missed PT appointment due to pain. PT-OP-G Mobility & Gait Start: 07/16/20 13:38 Freq: Status: Active Protocol: Document 07/17/20 09:07 [facility] (Rec: 07/17/20 10:06 [facility] [id number]) OP Mobility Evaluation Transfers Sit to Stand independent with use of UE's OP Gait Assessment Gait Gait Assistance Required: Independent Assistive Devices Assistive Device Front Wheeled Walker Gait Deviations General Gait Pattern Antalgic Stair Climbing Evaluation Evaluation Level of Assist On Stairs Independent Devices Stair Climbing Assistive Devices Left Railing,Right Railing Technique/Endurance Stair Climbing Direction Ascend and Descend Stair Climbing Technique Step to Step PT-OP-K Range of Motion Start: 02/01/21 13:38 Freq: Status: Active Protocol: Document 08/02/20 09:04 [facility] (Rec: 08/02/20 13:00 [facility] [id number]) Knee Goniometric Range of Motion Knee Measured in Degrees Left Knee ROM WFL No Flexion Active (degrees) 74 Flexion Passive (degrees) 83 Extension Active (degrees) 29 Extension Passive (degrees) 15 PT-OP-M Strength Start: 07/16/20 13:38 Freq: Status: Active Protocol: Document 08/02/20 09:04 [facility] (Rec: 08/02/20 13:00 [facility] [id number]) Knee Strength Knee Manual Muscle Testing Left Flexion (S2) 3- Fair- Extension (L3) 3- Fair- PT-OP-Q Treatments Start: 07/16/20 13:38 Freq: Status: Active Protocol: Document 08/02/20 13:00 [facility] (Rec: 08/02/20 13:08 [facility] [id number]) Therapeutic Exercises Supine Exercises SAQ Side bilateral Equipment Used roll Reps/Minutes 10x5 Comments manual assist for inc extension heel slide Side left Equipment Used 55 cm ball under heel Reps/Minutes 20x Comments manual assist SLR Side bilateral Reps/Minutes 10x quad set Side bilateral Reps/Minutes 10x5 Comments cued to start with sl knee flex to better feel quads activate Sitting Exercises LAQ Side bilateral Reps/Minutes 10x Standing Exercises knee flex Side left Reps/Minutes 10x 1 Standing Exercise Name step-touch Side bilateral Equipment Used 4 stair Reps/Minutes 10x Gait Training Gait Activity level surface Device Used FWW Level of Assistance SBA and cues Surface level Distance/Duration 100' Treatment Focus increase knee flexion with gait Manual Therapy Treatment Soft Tissue Mobilization left knee Mobilization Type Manual Lymphatic Drainage Body Position Hooklying Comments to decrease left LE edema Self-Care/Home Management Treatment Education Patient Education Home Exercise Program,Pain Management Other Education Increase exercise and icing frequency, elevate left LE above heart. Consider compression stockings. PT-OP-R Modalities Start: 07/16/20 13:38 Freq: Status: Active Protocol: Document 08/02/20 09:04 [facility] (Rec: 08/02/20 13:00 [facility] [id number]) Electric Stimulation Electric Stimulation Interferential Current (IFC) Body Location left knee Duration (Minutes) 15 Intensity 12 Target/Sweep Sweep Patient Position Hooklying Combined With Heat/Cold Cold Pack Comments extra pillow under feet for increased elevation, small ice pack under knee, large on top PT-OP-T Assessment and Plan Start: 07/16/20 13:38 Freq: Status: Active Protocol: Document 08/02/20 09:04 [facility] (Rec: 08/02/20 09:49 [facility] [id number]) Physical Therapy Assessment Goals Four Impairment limited left knee ROM 32-69 actively Short Term Goal (STG) Improve left knee ROM to 10-95 degrees 08/02/20: 26-79 AROM 15-83 PROM STG Duration 08/14/20 Penitentiary Goal (LTG) Improve left knee ROM to 0-120 degrees LTG Duration 09/15/20 Five Impairment strength 3-/5 left knee Short Term Goal (STG) Patient to be independent and compliant with HEPwith HEP STG Duration 08/14/20 [facility]itentiary Goal (LTG) Improve left knee strength to 4+/5 LTG Duration 09/15/20 Three Impairment Lower extremity functional scale 45% Short Term Goal (STG) Improve LEFS to 55% STG Duration 08/14/20 Penitentiary Goal (LTG) Improve LEFS score to at least 70% as measure of improved activity tolerance LTG Duration 09/15/20 Two Impairment gait dysfunction; antalgic Short Term Goal (STG) Patient able to ambulate with FWW with minimal to no limp 200 ft. 08/01/20: post-op patient ambulates independently with FWW but with minimal left knee flexion, holds very stiff. STG Duration 08/14/20 Director Of Strategy & Mobile Goal (LTG) Patient able to ambulate on all usual surfaces with least restrictive device without limp and with normal mechanics . LTG Duration 09/15/20 One Impairment pain left knee limiting function: 5/10 on pain scale Director Of Strategy & Mobile Goal (LTG) Patient able to do all usual activities with pain no greater than 2/10 LTG Duration 09/15/20 Assessment Summary Assessment Patient presents s/p left TKA with limited left knee ROM at 26-79 AROM, 15-83 PROM. She ambulates with an extremely stiff left knee. Due to weather patient has been unable to attend outpatient PT until today. She has a moderate to severe amount of edema, appears due to lack of adequate elevation, icing, and exercise; stressed importance of all. Reported tightness and tenderness along achilles. Also discussed potential need for thigh-high compression stocking if swelling doesn't imrove, though patient has concerns about ability to don. If not improved at next PT visit (tomorrow) will also do trial kinesiotape for edema, reassess need to check for DVT . Physical Therapy Plan Frequency and Duration Frequency of Treatment 12 weeks Duration of Treatment 8 weeks Plan of Care Start Date 07/17/20 Plan of Care End Date 09/15/20 Therapeutic Interventions Therapeutic Interventions Gait Training,Home Exercise Program,Joint Mobilizations, Manual Therapy,Neuromuscular Re-education,Patient/Caregiver Education,Self-Care/Home Management,Soft Tissue Mobilization,Taping, Therapeutic Activities, Therapeutic Exercises Modalities Cold Pack/Ice Massage,Electric Stimulation Next Visit Focus/Plan Next Note Type Treatment Note Next Visit Plan Continue TKA rehab, emphasis on ROM, gait mechanics, and edema reduction. Patient did not take pain medication prior to PT and she was encouraged to do this tomorrow.
--- NOTE | 2020-08-02 13:10 | PT.OPPOC ---
Physical, Occupational & Speech Therapy At [facility] Current Diagnoses Bilateral primary osteoarthritis of knee (08/02/20) Difficulty in walking, not elsewhere classified (08/02/20) Weakness (08/02/20) Visit Care Team Role Provider Type Sriram Badillo MD Family Provider Physician Primary Care Provider Specialty: Internal Medicine Address: [address] [place] [address], [id number] Email: [email or web address] Aisha Jones MD Attending Provider Physician Referring Provider Specialty: Orthopedic Surgery Address: [address] [place] [address], [address] Email: [email or web address] Plan Of Care PT-OP-T Assessment and Plan Start: 07/16/20 13:38 Freq: Status: Active Protocol: Document 08/02/20 09:04 [facility] (Rec: 08/02/20 09:49 [facility] [id number]) Physical Therapy Assessment Goals Four Impairment limited left knee ROM 32-69 actively Short Term Goal (STG) Improve left knee ROM to 10-95 degrees 08/02/20: 26-79 AROM 15-83 PROM STG Duration 08/14/20 Residential Goal (LTG) Improve left knee ROM to 0-120 degrees LTG Duration 09/15/20 Five Impairment strength 3-/5 left knee Short Term Goal (STG) Patient to be independent and compliant with HEPwith HEP STG Duration 08/14/20 Garnett Machine Operator Goal (LTG) Improve left knee strength to 4+/5 LTG Duration 09/15/20 Three Impairment Lower extremity functional scale 45% Short Term Goal (STG) Improve LEFS to 55% STG Duration 08/14/20 [employer] Machine Operator Goal (LTG) Improve LEFS score to at least 70% as measure of improved activity tolerance LTG Duration 09/15/20 Two Impairment gait dysfunction; antalgic Short Term Goal (STG) Patient able to ambulate with FWW with minimal to no limp 200 ft. 08/01/20: post-op patient ambulates independently with FWW but with minimal left knee flexion, holds very stiff. STG Duration 08/14/20 Garnett Machine Operator Goal (LTG) Patient able to ambulate on all usual surfaces with least restrictive device without limp and with normal mechanics . LTG Duration 09/15/20 One Impairment pain left knee limiting function: 5/10 on pain scale Garnett Machine Operator Goal (LTG) Patient able to do all usual activities with pain no greater than 2/10 LTG Duration 09/15/20 Assessment Summary Assessment Patient presents s/p left TKA with limited left knee ROM at 26-79 AROM, 15-83 PROM. She ambulates with an extremely stiff left knee. Due to weather patient has been unable to attend outpatient PT until today. She has a moderate to severe amount of edema, appears due to lack of adequate elevation, icing, and exercise; stressed importance of all. Reported tightness and tenderness along achilles. Also discussed potential need for thigh-high compression stocking if swelling doesn't imrove, though patient has concerns about ability to don. If not improved at next PT visit (tomorrow) will also do trial kinesiotape for edema, reassess need to check for DVT . Physical Therapy Plan Frequency and Duration Frequency of Treatment 12 weeks Duration of Treatment 8 weeks Plan of Care Start Date 07/17/20 Plan of Care End Date 09/15/20 Therapeutic Interventions Therapeutic Interventions Gait Training,Home Exercise Program,Joint Mobilizations, Manual Therapy,Neuromuscular Re-education,Patient/Caregiver Education,Self-Care/Home Management,Soft Tissue Mobilization,Taping, Therapeutic Activities, Therapeutic Exercises Modalities Cold Pack/Ice Massage,Electric Stimulation Next Visit Focus/Plan Next Note Type Treatment Note Next Visit Plan Continue TKA rehab, emphasis on ROM, gait mechanics, and edema reduction. Patient did not take pain medication prior to PT and she was encouraged to do this tomorrow. Plan of Care Dates Plan of Care Start Date 07/17/20 Plan of Care End Date 09/15/20 Electronically Signed by: Nissa Sanchez, PT 08/02/20 1310 Please Sign and Return: I have reviewed this Plan of Care and certify that the skilled therapy services above are required to meet the patient?s needs. Physician Signature Date Printed Name and Credentials Clinical Instructor Signature Printed Name and Credentials
--- NOTE | 2020-08-03 12:04 | PT.OTN ---
Current Diagnoses Bilateral primary osteoarthritis of knee (08/03/20) Difficulty in walking, not elsewhere classified (08/03/20) Weakness (08/03/20) Physical Therapy Treatment Note PT-OP-A Visit Information Start: 07/16/20 13:38 Freq: Status: Active Protocol: Document 08/03/20 11:21 MA (Rec: 08/03/20 12:03 MA [id number]) Out-Patient Physical Therapy Visit Information Visit Information Visit Type Treatment Note Visit Start Time 11:15 Visit Stop Time 12:10 Total Visit Minutes 55 Visit Number 3 Number of BIOMASS PLANT TECHNICIAN Visits 1 PT-OP-B Current Condition Start: 07/16/20 13:38 Freq: Status: Active Protocol: Document 07/17/20 09:07 SAK (Rec: 07/17/20 10:06 SAK [id number]) Current Condition History of Current Condition Onset Date years Current Complaints left knee TKA scheduled for 07/24/20 History of Current Condition Long history left knee pain, wasn't approved for TKA until she lost some weight. Now scheduled 07/24/20. States her knee is hard to bend, very painful when bends her leg with walking. Has 3 stairs to enter, no railing but states she will have her son to help. as throw rug at front door and at shower but are nonskid. Lives alone on son's property (3 min away). Has PT scheduled after surgery. Has FWW. Treatment Goals Patient/Caregiver Goals Recover full function of her left knee Prior Functional Status Baseline Function- ADL's Independent Baseline Function- Mobility Independent Baseline Function- Gait no pain or limp Baseline Function- Work/School retired Baseline Function- Recreation/Hobbies limited by pain Current Functional Impairments (Reported) Functional Limitations- ADL's slow and painful Functional Limitations- Mobility/Gait slow and painful, step-to on stairs Functional Limitations- Work/School retired Functional Limitations- Recreation/ limited by pain Hobbies PT-OP-C Subjective Start: 07/16/20 13:38 Freq: Status: Active Protocol: Document 08/03/20 11:21 MA (Rec: 08/03/20 12:03 MA [id number]) OP-PT Subjective Patient Comments Patient Comments Pt took medication after yesterdays appt and about an hour before today's appt PT-OP-G Mobility & Gait Start: 07/16/20 13:38 Freq: Status: Active Protocol: Document 07/17/20 09:07 SAK (Rec: 07/17/20 10:06 SAK [id number]) OP Mobility Evaluation Transfers Sit to Stand independent with use of UE's OP Gait Assessment Gait Gait Assistance Required: Independent Assistive Devices Assistive Device Front Wheeled Walker Gait Deviations General Gait Pattern Antalgic Stair Climbing Evaluation Evaluation Level of Assist On Stairs Independent Devices Stair Climbing Assistive Devices Left Railing,Right Railing Technique/Endurance Stair Climbing Direction Ascend and Descend Stair Climbing Technique Step to Step PT-OP-K Range of Motion Start: 07/16/20 13:38 Freq: Status: Active Protocol: Document 08/02/20 09:04 SAK (Rec: 08/02/20 13:00 SAK [id number]) Knee Goniometric Range of Motion Knee Left Knee ROM WFL No Flexion Active (degrees) 74 Flexion Passive (degrees) 83 Extension Active (degrees) 29 Extension Passive (degrees) 15 PT-OP-M Strength Start: 07/16/20 13:38 Freq: Status: Active Protocol: Document 08/02/20 09:04 SAK (Rec: 08/02/20 13:00 [facility] [id number]) Knee Strength Knee Manual Muscle Testing Left Flexion (S2) 3- Fair- Extension (L3) 3- Fair- PT-OP-Q Treatments Start: 07/16/20 13:38 Freq: Status: Active Protocol: Document 08/03/20 11:21 MA (Rec: 08/03/20 12:03 MA [id number]) Therapeutic Exercises Supine Exercises SAQ Side bilateral Equipment Used bolster Reps/Minutes 10x5 Comments manual assist for inc extension heel slide Side left Equipment Used 55 cm ball under heel Reps/Minutes 20x Comments manual assist SLR Side bilateral Reps/Minutes 10x quad set Side bilateral Reps/Minutes 10x5 Comments cued to start with sl knee flex to better feel quads activate Gait Training Gait Activity level surface Device Used FWW Level of Assistance SBA and cues Surface level Distance/Duration 100' Treatment Focus increase knee flexion with gait Manual Therapy Treatment Manual Techniques PROM Type knee flexion/extension Reps/Duration 5 min PT-OP-R Modalities Start: 07/16/20 13:38 Freq: Status: Active Protocol: Document 08/03/20 12:03 MA (Rec: 08/03/20 12:04 MA [id number]) Hot Pack/Cold Pack Treatment Cold Pack Location L knee Patient Position Supine Treatment Duration (minutes) 15 Patient Tolerance Good Comments Pillow under LLE PT-OP-T Assessment and Plan Start: 07/16/20 13:38 Freq: Status: Active Protocol: Document 08/03/20 11:21 MA (Rec: 08/03/20 12:03 MA [id number]) Physical Therapy Assessment Goals Four Impairment limited left knee ROM 32-69 actively Short Term Goal (STG) Improve left knee ROM to 10-95 degrees 08/02/20: 26-79 AROM 15-83 PROM STG Duration 08/14/20 Intensive Care Medicine Specialist Goal (LTG) Improve left knee ROM to 0-120 degrees LTG Duration 09/15/20 Five Impairment strength 3-/5 left knee Short Term Goal (STG) Patient to be independent and compliant with HEPwith HEP STG Duration 08/14/20 Mcc Goal (LTG) Improve left knee strength to 4+/5 LTG Duration 09/15/20 Three Impairment Lower extremity functional scale 45% Short Term Goal (STG) Improve LEFS to 55% STG Duration 08/14/20 [facility]cc Goal (LTG) Improve LEFS score to at least 70% as measure of improved activity tolerance LTG Duration 09/15/20 Two Impairment gait dysfunction; antalgic Short Term Goal (STG) Patient able to ambulate with FWW with minimal to no limp 200 ft. 08/01/20: post-op patient ambulates independently with FWW but with minimal left knee flexion, holds very stiff. STG Duration 08/14/20 Intensive Care Medicine Specialist Goal (LTG) Patient able to ambulate on all usual surfaces with least restrictive device without limp and with normal mechanics . LTG Duration 09/15/20 One Impairment pain left knee limiting function: 5/10 on pain scale [facility] Goal (LTG) Patient able to do all usual activities with pain no greater than 2/10 LTG Duration 09/15/20 Assessment Summary Assessment Pt continues to have limited ROM into knee flexion/ extension. She has some difficulty initiating L quad contraction during quad sets and is unable to fully extend knee for SLR due to limited ROM. Pt did well bending knee during gait today if she walked slowly and focused on flexion. Physical Therapy Plan Next Visit Focus/Plan Next Note Type Treatment Note Next Visit Plan Work on gait and stair taps, trying to increase knee flexion. Continue with AROM/ PROM into knee flexion/ extension to increase ROM
--- NOTE | 2020-08-06 10:18 | PT.OTN ---
Current Diagnoses Bilateral primary osteoarthritis of knee (08/06/20) Difficulty in walking, not elsewhere classified (08/06/20) Weakness (08/06/20) Physical Therapy Treatment Note PT-OP-A Visit Information Start: 07/16/20 13:38 Freq: Status: Active Protocol: Document 08/06/20 09:11 SAK (Rec: 08/06/20 10:18 SAK [id number]) Out-Patient Physical Therapy Visit Information Visit Information Visit Type Treatment Note Visit Start Time 09:00 Visit Stop Time 09:56 Total Visit Minutes 56 Visit Number 4 Number of OPS ANALYST Visits 1 PT-OP-B Current Condition Start: 07/16/20 13:38 Freq: Status: Active Protocol: Document 07/17/20 09:07 SAK (Rec: 07/17/20 10:06 SAK [id number]) Current Condition History of Current Condition Onset Date years Current Complaints left knee TKA scheduled for 07/24/20 History of Current Condition Long history left knee pain, wasn't approved for TKA until she lost some weight. Now scheduled 07/24/20. States her knee is hard to bend, very painful when bends her leg with walking. Has 3 stairs to enter, no railing but states she will have her son to help. as throw rug at front door and at shower but are nonskid. Lives alone on son's property (3 min away). Has PT scheduled after surgery. Has FWW. Treatment Goals Patient/Caregiver Goals Recover full function of her left knee Prior Functional Status Baseline Function- ADL's Independent Baseline Function- Mobility Independent Baseline Function- Gait no pain or limp Baseline Function- Work/School retired Baseline Function- Recreation/Hobbies limited by pain Current Functional Impairments (Reported) Functional Limitations- ADL's slow and painful Functional Limitations- Mobility/Gait slow and painful, step-to on stairs Functional Limitations- Work/School retired Functional Limitations- Recreation/ limited by pain Hobbies PT-OP-C Subjective Start: 07/16/20 13:38 Freq: Status: Active Protocol: Document 08/06/20 09:11 SAK (Rec: 08/06/20 10:18 SAK [id number]) OP-PT Subjective Patient Comments Patient Comments Swelling is maybe some better. Difficult to get knee bending. Sees Dr. Jones on Thursday. PT better with pain meds. C/o persistent tenderness left mid calf. PT-OP-G Mobility & Gait Start: 07/16/20 13:38 Freq: Status: Active Protocol: Document 07/17/20 09:07 [facility] (Rec: 07/17/20 10:06 [facility] [id number]) OP Mobility Evaluation Transfers Sit to Stand independent with use of UE's OP Gait Assessment Gait Gait Assistance Required: Independent Assistive Devices Assistive Device Front Wheeled Walker Gait Deviations General Gait Pattern Antalgic Stair Climbing Evaluation Evaluation Level of Assist On Stairs Independent Devices Stair Climbing Assistive Devices Left Railing,Right Railing Technique/Endurance Stair Climbing Direction Ascend and Descend Stair Climbing Technique Step to Step PT-OP-K Range of Motion Start: 07/16/20 13:38 Freq: Status: Active Protocol: Document 08/02/20 09:04 [facility] (Rec: 08/02/20 13:00 [facility] [id number]) Knee Goniometric Range of Motion Knee Left Knee ROM WFL No Flexion Active (degrees) 74 Flexion Passive (degrees) 83 Extension Active (degrees) 29 Extension Passive (degrees) 15 PT-OP-M Strength Start: 07/16/20 13:38 Freq: Status: Active Protocol: Document 08/02/20 09:04 [facility] (Rec: 08/02/20 13:00 [facility] [id number]) Knee Strength Knee Manual Muscle Testing Left Flexion (S2) 3- Fair- Extension (L3) 3- Fair- PT-OP-Q Treatments Start: 07/16/20 13:38 Freq: Status: Active Protocol: Document 08/06/20 09:11 [facility] (Rec: 08/06/20 10:18 [facility] [id number]) Cardio Equipment Recumbent Elliptical (Biodex) Duration (Minutes) 8 Resistance 1 Seat Position 11 Gym Equipment Shuttle Recovery Bilateral Squats Resistance 37 Shuttle Recovery Platform Stable Reps/Time 20x Therapeutic Exercises Supine Exercises gravity assisted knee flex Reps/Minutes 5x Comments while on shuttle leg press using slider sheet Hamstring stretch Reps/Minutes 2x30 Comments manual SAQ Side bilateral Equipment Used bolster Reps/Minutes 10x5 Comments manual assist for inc extension quad set Side left Reps/Minutes 10x5 Comments ankle on towel roll Sitting Exercises dangling Reps/Minutes 10x Comments edge of table knee flex Sitting Exercise Name with slider sheet, chair scoots Reps/Minutes 10x, 5x with 5 holds Standing Exercises march Reps/Minutes 10x knee flex Side left Reps/Minutes 10x Gait Training Gait Activity level surface Device Used FWW Level of Assistance SBA and cues Surface level Distance/Duration 100' Treatment Focus increase knee flexion with gait PT-OP-R Modalities Start: 07/16/20 13:38 Freq: Status: Active Protocol: Document 08/06/20 09:11 SAK (Rec: 08/06/20 10:18 SAK [id number]) Electric Stimulation Electric Stimulation Interferential Current (IFC) Body Location left knee Duration (Minutes) 15 Intensity 12 Target/Sweep Sweep Patient Position Hooklying Combined With Heat/Cold Cold Pack Comments extra pillow under feet for increased elevation, small ice pack under knee, large on top PT-OP-T Assessment and Plan Start: 07/16/20 13:38 Freq: Status: Active Protocol: Document 08/06/20 09:11 SAK (Rec: 08/06/20 10:18 [facility] [id number]) Physical Therapy Assessment Goals Four Impairment limited left knee ROM 32-69 actively Short Term Goal (STG) Improve left knee ROM to 10-95 degrees 08/02/20: 26-79 AROM 15-83 PROM STG Duration 08/14/20 Fish Cutting Machine Operator Goal (LTG) Improve left knee ROM to 0-120 degrees LTG Duration 09/15/20 Five Impairment strength 3-/5 left knee Short Term Goal (STG) Patient to be independent and compliant with HEPwith HEP STG Duration 08/14/20 Fish Cutting Machine Operator Goal (LTG) Improve left knee strength to 4+/5 LTG Duration 09/15/20 Three Impairment Lower extremity functional scale 45% Short Term Goal (STG) Improve LEFS to 55% STG Duration 08/14/20 Long-Term Goal (LTG) Improve LEFS score to at least 70% as measure of improved activity tolerance LTG Duration 09/15/20 Two Impairment gait dysfunction; antalgic Short Term Goal (STG) Patient able to ambulate with FWW with minimal to no limp 200 ft. 08/01/20: post-op patient ambulates independently with FWW but with minimal left knee flexion, holds very stiff. STG Duration 08/14/20 Long-Term Goal (LTG) Patient able to ambulate on all usual surfaces with least restrictive device without limp and with normal mechanics . LTG Duration 09/15/20 One Impairment pain left knee limiting function: 5/10 on pain scale Long-Term Goal (LTG) Patient able to do all usual activities with pain no greater than 2/10 LTG Duration 09/15/20 Assessment Summary Assessment left knee PROM 15-91, good improvement in flexion. Sl. improvement in knee flexion during gait. Discussed left calf pain with Dr. Jones's office and they scheduled her for a doppler to check for DVT immediately after PT today. Physical Therapy Plan Next Visit Focus/Plan Next Note Type Treatment Note Next Visit Plan Manual treatment to quads and hamstrings to improve extensibility and knee ROM. Continue use of Biodex and shuttle leg press, slider sheet. Stair taps with possible trial 4 stairs. Consider kinesiotape for edema reduction.
--- NOTE | 2020-08-08 11:53 | PT.OTN ---
Current Diagnoses Bilateral primary osteoarthritis of knee (08/08/20) Difficulty in walking, not elsewhere classified (08/08/20) Weakness (08/08/20) Physical Therapy Treatment Note PT-OP-A Visit Information Start: 07/16/20 13:38 Freq: Status: Active Protocol: Document 08/08/20 09:02 SAK (Rec: 08/08/20 09:49 SAK [id number]) Out-Patient Physical Therapy Visit Information Visit Information Visit Type Treatment Note Visit Start Time 09:00 Visit Stop Time 10:00 Total Visit Minutes 60 Visit Number 5 Number of BUS REPAIR SUPERVISOR Visits 0 PT-OP-B Current Condition Start: 07/16/20 13:38 Freq: Status: Active Protocol: Document 07/17/20 09:07 SAK (Rec: 07/17/20 10:06 SAK [id number]) Current Condition History of Current Condition Onset Date years Current Complaints left knee TKA scheduled for 07/24/20 History of Current Condition Long history left knee pain, wasn't approved for TKA until she lost some weight. Now scheduled 07/24/20. States her knee is hard to bend, very painful when bends her leg with walking. Has 3 stairs to enter, no railing but states she will have her son to help. as throw rug at front door and at shower but are nonskid. Lives alone on son's property (3 min away). Has PT scheduled after surgery. Has FWW. Treatment Goals Patient/Caregiver Goals Recover full function of her left knee Prior Functional Status Baseline Function- ADL's Independent Baseline Function- Mobility Independent Baseline Function- Gait no pain or limp Baseline Function- Work/School retired Baseline Function- Recreation/Hobbies limited by pain Current Functional Impairments (Reported) Functional Limitations- ADL's slow and painful Functional Limitations- Mobility/Gait slow and painful, step-to on stairs Functional Limitations- Work/School retired Functional Limitations- Recreation/ limited by pain Hobbies PT-OP-C Subjective Start: 07/16/20 13:38 Freq: Status: Active Protocol: Document 08/08/20 09:02 SAK (Rec: 08/08/20 09:49 SAK [id number]) OP-PT Subjective Patient Comments Patient Comments states she feels she is tolerating PT better, doesn't want to take the medications because she sleeps for 3 hours after PT (because I am so zonked). Compliant to HEP though admits I probably sit too much. Sees Dr. Jones this afternoon. Test negative for blood clot. PT-OP-G Mobility & Gait Start: 07/16/20 13:38 Freq: Status: Active Protocol: Document 07/17/20 09:07 [facility] (Rec: 07/17/20 10:06 [facility] [id number]) OP Mobility Evaluation Transfers Sit to Stand independent with use of UE's OP Gait Assessment Gait Gait Assistance Required: Independent Assistive Devices Assistive Device Front Wheeled Walker Gait Deviations General Gait Pattern Antalgic Stair Climbing Evaluation Evaluation Level of Assist On Stairs Independent Devices Stair Climbing Assistive Devices Left Railing,Right Railing Technique/Endurance Stair Climbing Direction Ascend and Descend Stair Climbing Technique Step to Step PT-OP-K Range of Motion Start: 07/16/20 13:38 Freq: Status: Active Protocol: Document 08/02/20 09:04 [facility] (Rec: 08/02/20 13:00 [facility] [id number]) Knee Goniometric Range of Motion Knee Left Knee ROM WFL No Flexion Active (degrees) 74 Flexion Passive (degrees) 83 Extension Active (degrees) 29 Extension Passive (degrees) 15 PT-OP-M Strength Start: 07/16/20 13:38 Freq: Status: Active Protocol: Document 08/02/20 09:04 [facility] (Rec: 08/02/20 13:00 [facility] [id number]) Knee Strength Knee Manual Muscle Testing Left Flexion (S2) 3- Fair- Extension (L3) 3- Fair- PT-OP-Q Treatments Start: 07/16/20 13:38 Freq: Status: Active Protocol: Document 08/08/20 09:02 [facility] (Rec: 08/08/20 09:49 [facility] [id number]) Cardio Equipment Recumbent Elliptical ([employer] Duration (Minutes) 10 Resistance 1 Seat Position 9 Other UE/LE's first 5 min, LE's only second 5 min Gym Equipment Shuttle Recovery Unilateral Squats Resistance 25 Shuttle Recovery Platform Stable Bilateral Squats Resistance 37 Shuttle Recovery Platform Stable Reps/Time 20x Therapeutic Exercises Supine Exercises gravity assisted knee flex Reps/Minutes 6x Comments while on shuttle leg press using slider sheet Hamstring stretch Reps/Minutes 2x30 Comments manual quad set Side left Reps/Minutes 10x5 Comments ankle on towel roll Standing Exercises march Reps/Minutes 10x knee flex Side left Reps/Minutes 10x 1 Standing Exercise Name step-touch Side bilateral Equipment Used 4 stair Reps/Minutes 10x Gait Training Gait Activity level surface Device Used SPC Level of Assistance SBA and cues Surface level Distance/Duration 100' Treatment Focus increase knee flexion with gait Manual Therapy Treatment Soft Tissue Mobilization left knee Body Location distal hamstrings Mobilization Type Myofascial Release Intensity/Depth Moderate Body Position Hooklying Comments to improve knee ROM PT-OP-R Modalities Start: 07/16/20 13:38 Freq: Status: Active Protocol: Document 08/06/20 09:11 SAK (Rec: 08/06/20 10:18 SAK [id number]) Electric Stimulation Electric Stimulation Interferential Current (IFC) Body Location left knee Duration (Minutes) 15 Intensity 12 Target/Sweep Sweep Patient Position Hooklying Combined With Heat/Cold Cold Pack Comments extra pillow under feet for increased elevation, small ice pack under knee, large on top PT-OP-T Assessment and Plan Start: 07/16/20 13:38 Freq: Status: Active Protocol: Document 08/08/20 09:02 SAK (Rec: 08/08/20 09:49 SAK [id number]) Physical Therapy Assessment Goals Four Impairment limited left knee ROM 32-69 actively Short Term Goal (STG) Improve left knee ROM to 10-95 degrees 08/02/20: 26-79 AROM 15-83 PROM STG Duration 08/14/20 [facility] Goal (LTG) Improve left knee ROM to 0-120 degrees LTG Duration 09/15/20 Five Impairment strength 3-/5 left knee Short Term Goal (STG) Patient to be independent and compliant with HEPwith HEP STG Duration 08/14/20 [facility] Goal (LTG) Improve left knee strength to 4+/5 LTG Duration 09/15/20 Three Impairment Lower extremity functional scale 45% Short Term Goal (STG) Improve LEFS to 55% STG Duration 08/14/20 [facility] Goal (LTG) Improve LEFS score to at least 70% as measure of improved activity tolerance LTG Duration 09/15/20 Two Impairment gait dysfunction; antalgic Short Term Goal (STG) Patient able to ambulate with FWW with minimal to no limp 200 ft. 08/01/20: post-op patient ambulates independently with FWW but with minimal left knee flexion, holds very stiff. STG Duration 08/14/20 [facility] Goal (LTG) Patient able to ambulate on all usual surfaces with least restrictive device without limp and with normal mechanics . LTG Duration 09/15/20 One Impairment pain left knee limiting function: 5/10 on pain scale [facility] Goal (LTG) Patient able to do all usual activities with pain no greater than 2/10 LTG Duration 09/15/20 Assessment Summary Assessment left knee PROM 15-96 degrees, improved flexion. Patient encouraged to alter position more frequently and increase stretching of knee into extension. Able to ambulate with use of straight cane with verbal cues and SBA; recommend for use in her house not outdoors or in community yet. Physical Therapy Plan Next Visit Focus/Plan Next Note Type Treatment Note Next Visit Plan Continue PT per POC pending any further recommendations from Dr. Jones after patient's appointment with her today.
--- NOTE | 2020-08-13 09:40 | PT.OTN ---
Current Diagnoses Bilateral primary osteoarthritis of knee (08/13/20) Difficulty in walking, not elsewhere classified (08/13/20) Weakness (08/13/20) Physical Therapy Treatment Note PT-OP-A Visit Information Start: 07/16/20 13:38 Freq: Status: Active Protocol: Document 08/13/20 08:50 SP (Rec: 08/13/20 11:26 SP [id number]) Out-Patient Physical Therapy Visit Information Visit Information Visit Type Treatment Note Visit Start Time 08:50 Visit Stop Time 09:40 Total Visit Minutes 50 Visit Number 6 Number of ASSOCIATE PRINCIPAL Visits 1 PT-OP-B Current Condition Start: 07/16/20 13:38 Freq: Status: Active Protocol: Document 07/17/20 09:07 SAK (Rec: 07/17/20 10:06 SAK [id number]) Current Condition History of Current Condition Onset Date years Current Complaints left knee TKA scheduled for 07/24/20 History of Current Condition Long history left knee pain, wasn't approved for TKA until she lost some weight. Now scheduled 07/24/20. States her knee is hard to bend, very painful when bends her leg with walking. Has 3 stairs to enter, no railing but states she will have her son to help. as throw rug at front door and at shower but are nonskid. Lives alone on son's property (3 min away). Has PT scheduled after surgery. Has FWW. Treatment Goals Patient/Caregiver Goals Recover full function of her left knee Prior Functional Status Baseline Function- ADL's Independent Baseline Function- Mobility Independent Baseline Function- Gait no pain or limp Baseline Function- Work/School retired Baseline Function- Recreation/Hobbies limited by pain Current Functional Impairments (Reported) Functional Limitations- ADL's slow and painful Functional Limitations- Mobility/Gait slow and painful, step-to on stairs Functional Limitations- Work/School retired Functional Limitations- Recreation/ limited by pain Hobbies PT-OP-C Subjective Start: 07/16/20 13:38 Freq: Status: Active Protocol: Document 08/13/20 08:50 SP (Rec: 08/13/20 11:26 SP [id number]) OP-PT Subjective Patient Comments Patient Comments Pt arrived using a friend's SPC, checked proper height. She stated was pretty tired at the end of the day after last appt, stated also went out with a friend for lunch after appt then to her Dr appt got her gloria out. Pt stateded when got home needed to elevate legs and use cold back for comfort and swelling assist. Pt stated physician didn't give her further recommendations during last visit. Patient Reported Progress Improving PT-OP-G Mobility & Gait Start: 07/16/20 13:38 Freq: Status: Active Protocol: Document 07/17/20 09:07 [facility] (Rec: 07/17/20 10:06 SAK [id number]) OP Mobility Evaluation Transfers Sit to Stand independent with use of UE's OP Gait Assessment Gait Gait Assistance Required: Independent Assistive Devices Assistive Device Front Wheeled Walker Gait Deviations General Gait Pattern Antalgic Stair Climbing Evaluation Evaluation Level of Assist On Stairs Independent Devices Stair Climbing Assistive Devices Left Railing,Right Railing Technique/Endurance Stair Climbing Direction Ascend and Descend Stair Climbing Technique Step to Step PT-OP-K Range of Motion Start: 07/16/20 13:38 Freq: Status: Active Protocol: Document 08/02/20 09:04 [facility] (Rec: 08/02/20 13:00 [facility] [id number]) Knee Goniometric Range of Motion Knee Left Knee ROM WFL No Flexion Active (degrees) 74 Flexion Passive (degrees) 83 Extension Active (degrees) 29 Extension Passive (degrees) 15 PT-OP-M Strength Start: 07/16/20 13:38 Freq: Status: Active Protocol: Document 08/02/20 09:04 [facility] (Rec: 08/02/20 13:00 [facility] [id number]) Knee Strength Knee Manual Muscle Testing Left Flexion (S2) 3- Fair- Extension (L3) 3- Fair- PT-OP-Q Treatments Start: 07/16/20 13:38 Freq: Status: Active Protocol: Document 08/13/20 08:50 SP (Rec: 08/13/20 11:26 SP [id number]) Cardio Equipment Recumbent Elliptical ([employer]) Duration (Minutes) 8 Resistance 1 Seat Position 9 Other UE/LE 8 min- next visit decrease UE assist. Gym Equipment Shuttle Recovery Unilateral Squats Resistance 25 Shuttle Recovery Platform Stable Reps/Time x10 Bilateral Squats Resistance 37 Shuttle Recovery Platform Stable Reps/Time 2x20 Therapeutic Exercises Supine Exercises gravity assisted knee flex Supine Exercise Name (pt stated can do on headboard at home) Side left Resistance AROM Reps/Minutes x10 Comments while on shuttle leg press using slider sheet/washcloth/ sock Gait Training Gait Activity level surface Description using friend's SPC out Device Used SPC Level of Assistance SBA and cues Surface level Distance/Duration 20 ft multiple laps front mirror Treatment Focus incr knee flexion and extension during swing through heel strike w/gait Manual Therapy Treatment Soft Tissue Mobilization left knee Body Location distal HS, calf, med/lat knee retrograde Mobilization Type Instrument Assisted,Manual Lymphatic Drainage,Myofascial Release Intensity/Depth Superficial Body Position Hooklying Comments while on shuttle recovery: assist swelling, decrease tightness, ROM PT-OP-R Modalities Start: 07/16/20 13:38 Freq: Status: Active Protocol: Document 08/13/20 08:50 SP (Rec: 08/13/20 11:26 SP [id number]) Hot Pack/Cold Pack Treatment Cold Pack Location L knee cryocuff Patient Position Hooklying Treatment Duration (minutes) 8 Patient Tolerance Good Comments good feedback tolerance PT-OP-T Assessment and Plan Start: 07/16/20 13:38 Freq: Status: Active Protocol: Document 08/13/20 08:50 SP (Rec: 08/13/20 11:26 SP [id number]) Physical Therapy Assessment Goals Four Impairment limited left knee ROM 32-69 actively Short Term Goal (STG) Improve left knee ROM to 10-95 degrees 08/02/20: 26-79 AROM 15-83 PROM 08/13/20: 15-87 deg PROM supine post cryocuff. STG Duration 08/14/20 Supervisor Webbing Goal (LTG) Improve left knee ROM to 0-120 degrees LTG Duration 09/15/20 Five Impairment strength 3-/5 left knee Short Term Goal (STG) Patient to be independent and compliant with HEPwith HEP STG Duration 08/14/20 [facility] Goal (LTG) Improve left knee strength to 4+/5 LTG Duration 09/15/20 Three Impairment Lower extremity functional scale 45% Short Term Goal (STG) Improve LEFS to 55% STG Duration 08/14/20 [facility] Goal (LTG) Improve LEFS score to at least 70% as measure of improved activity tolerance LTG Duration 09/15/20 Two Impairment gait dysfunction; antalgic Short Term Goal (STG) Patient able to ambulate with FWW with minimal to no limp 200 ft. 08/01/20: post-op patient ambulates independently with FWW but with minimal left knee flexion, holds very stiff. STG Duration 08/14/20 [facility] Goal (LTG) Patient able to ambulate on all usual surfaces with least restrictive device without limp and with normal mechanics . LTG Duration 09/15/20 One Impairment pain left knee limiting function: 5/10 on pain scale Supervisor Webbing Goal (LTG) Patient able to do all usual activities with pain no greater than 2/10 LTG Duration 09/15/20 Assessment Summary Assessment Extra time spent on AAROM, manual edema mgt and decrease tightness over calf and quad with self application using rolling pin, hands per discussion and manual demonstration. Pt improved in level pelvis with improve L knee flexion/ ext heel strike during gait leaving post manual and shuttle recovery AAROM. ASSOCIATE PRINCIPAL encouraged use of SPC during gait in the house for proper patterning and body mechanics carryover. Physical Therapy Plan Frequency and Duration Frequency of Treatment 12 weeks Duration of Treatment 8 weeks Plan of Care Start Date 07/17/20 Plan of Care End Date 09/15/20 Therapeutic Interventions Therapeutic Interventions Gait Training,Home Exercise Program,Joint Mobilizations, Manual Therapy,Neuromuscular Re-education,Patient/Caregiver Education,Self-Care/Home Management,Soft Tissue Mobilization,Taping, Therapeutic Activities, Therapeutic Exercises Modalities Cold Pack/Ice Massage,Electric Stimulation Next Visit Focus/Plan Next Note Type Treatment Note Next Visit Plan Assess response to gait and ROM last tx. Next tx: assess self rolling pin to calf, HS per last tx manual and discussion while on leg press. Continue PT per POC: ROM, gait with LRAD.
--- NOTE | 2020-08-15 10:07 | PT.OTN ---
Current Diagnoses Bilateral primary osteoarthritis of knee (08/15/20) Difficulty in walking, not elsewhere classified (08/15/20) Weakness (08/15/20) Physical Therapy Treatment Note PT-OP-A Visit Information Start: 07/16/20 13:38 Freq: Status: Active Protocol: Document 08/15/20 09:05 SAK (Rec: 08/15/20 10:07 SAK [id number]) Out-Patient Physical Therapy Visit Information Visit Information Visit Type Treatment Note Visit Start Time 09:00 Visit Stop Time 09:58 Total Visit Minutes 58 Visit Number 7 Number of BREAK OUT MAN Visits 0 PT-OP-B Current Condition Start: 07/16/20 13:38 Freq: Status: Active Protocol: Document 07/17/20 09:07 SAK (Rec: 07/17/20 10:06 SAK [id number]) Current Condition History of Current Condition Onset Date years Current Complaints left knee TKA scheduled for 07/24/20 History of Current Condition Long history left knee pain, wasn't approved for TKA until she lost some weight. Now scheduled 07/24/20. States her knee is hard to bend, very painful when bends her leg with walking. Has 3 stairs to enter, no railing but states she will have her son to help. as throw rug at front door and at shower but are nonskid. Lives alone on son's property (3 min away). Has PT scheduled after surgery. Has FWW. Treatment Goals Patient/Caregiver Goals Recover full function of her left knee Prior Functional Status Baseline Function- ADL's Independent Baseline Function- Mobility Independent Baseline Function- Gait no pain or limp Baseline Function- Work/School retired Baseline Function- Recreation/Hobbies limited by pain Current Functional Impairments (Reported) Functional Limitations- ADL's slow and painful Functional Limitations- Mobility/Gait slow and painful, step-to on stairs Functional Limitations- Work/School retired Functional Limitations- Recreation/ limited by pain Hobbies PT-OP-C Subjective Start: 07/16/20 13:38 Freq: Status: Active Protocol: Document 08/15/20 09:05 SAK (Rec: 08/15/20 10:07 SAK [id number]) OP-PT Subjective Patient Comments Patient Comments No new c/o, less pain, walking with a cane. Doing HEP. States Dr. Jones seemed pleased with her progress. PT-OP-G Mobility & Gait Start: 07/16/20 13:38 Freq: Status: Active Protocol: Document 07/17/20 09:07 [facility] (Rec: 07/17/20 10:06 [facility] [id number]) OP Mobility Evaluation Transfers Sit to Stand independent with use of UE's OP Gait Assessment Gait Gait Assistance Required: Independent Assistive Devices Assistive Device Front Wheeled Walker Gait Deviations General Gait Pattern Antalgic Stair Climbing Evaluation Evaluation Level of Assist On Stairs Independent Devices Stair Climbing Assistive Devices Left Railing,Right Railing Technique/Endurance Stair Climbing Direction Ascend and Descend Stair Climbing Technique Step to Step PT-OP-K Range of Motion Start: 07/16/20 13:38 Freq: Status: Active Protocol: Document 08/02/20 09:04 [facility] (Rec: 08/02/20 13:00 [facility] [id number]) Knee Goniometric Range of Motion Knee Left Knee ROM WFL No Flexion Active (degrees) 74 Flexion Passive (degrees) 83 Extension Active (degrees) 29 Extension Passive (degrees) 15 PT-OP-M Strength Start: 07/16/20 13:38 Freq: Status: Active Protocol: Document 08/02/20 09:04 [facility] (Rec: 08/02/20 13:00 [facility] [id number]) Knee Strength Knee Manual Muscle Testing Left Flexion (S2) 3- Fair- Extension (L3) 3- Fair- PT-OP-Q Treatments Start: 07/16/20 13:38 Freq: Status: Active Protocol: Document 08/15/20 09:05 [facility] (Rec: 08/15/20 10:07 [facility] [id number]) Cardio Equipment Recumbent Elliptical (Biodex) Duration (Minutes) 8 Resistance 1 Seat Position 8 Other UE/LE 8 min- next visit decrease UE assist. Gym Equipment Shuttle Recovery Unilateral Squats Resistance 25 Shuttle Recovery Platform Stable Reps/Time x10 Bilateral Squats Resistance 50 Shuttle Recovery Platform Stable Reps/Time 2x20 Therapeutic Exercises Supine Exercises gravity assisted knee flex Side left Resistance AROM Reps/Minutes x10 Comments while on shuttle leg press using slider sheet Hamstring stretch Reps/Minutes 2x30 Comments manual quad set Side left Reps/Minutes 10x5 Comments ankle on towel roll, manual assist Sitting Exercises dangling Reps/Minutes 10x LAQ Side bilateral Reps/Minutes 10x5 Standing Exercises hurdles Resistance L2 TB Reps/Minutes 6x4 Comments prabha UE support knee extension Resistance L2 TB Reps/Minutes 10x HC stretch Reps/Minutes 2x30 august Reps/Minutes 10x Gait Training Gait Activity level surface Description using friend's SPC out Device Used SPC Level of Assistance SBA and cues Surface level Distance/Duration 20 ft multiple laps front mirror Treatment Focus incr knee flexion and extension during swing through heel strike w/gait Manual Therapy Treatment Soft Tissue Mobilization left knee Body Location distal HS, calf, med/lat knee retrograde Mobilization Type Instrument Assisted,Manual Lymphatic Drainage,Myofascial Release Intensity/Depth Superficial Body Position Hooklying Comments while on shuttle recovery: assist swelling, decrease tightness, ROM PT-OP-R Modalities Start: 07/16/20 13:38 Freq: Status: Active Protocol: Document 08/15/20 09:05 [facility] (Rec: 08/15/20 10:07 [facility] [id number]) Electric Stimulation Electric Stimulation Interferential Current (IFC) Body Location left knee Duration (Minutes) 15 Intensity 12 Target/Sweep Sweep Patient Position Hooklying Combined With Heat/Cold Cold Pack Comments extra pillow under feet for increased elevation, small ice pack under knee, large on top PT-OP-T Assessment and Plan Start: 07/16/20 13:38 Freq: Status: Active Protocol: Document 08/15/20 09:05 [facility] (Rec: 08/15/20 10:07 [facility] [id number]) Physical Therapy Assessment Goals Four Impairment limited left knee ROM 32-69 actively Short Term Goal (STG) Improve left knee ROM to 10-95 degrees 08/02/20: 26-79 AROM 15-83 PROM 08/13/20: 15-87 deg PROM supine post cryocuff. STG Duration 08/14/20 Nursing Home Goal (LTG) Improve left knee ROM to 0-120 degrees LTG Duration 09/15/20 Five Impairment strength 3-/5 left knee Short Term Goal (STG) Patient to be independent and compliant with HEPwith HEP STG Duration 08/14/20 Nursing Home Goal (LTG) Improve left knee strength to 4+/5 LTG Duration 09/15/20 Three Impairment Lower extremity functional scale 45% Short Term Goal (STG) Improve LEFS to 55% STG Duration 08/14/20 Nursing Home Goal (LTG) Improve LEFS score to at least 70% as measure of improved activity tolerance LTG Duration 09/15/20 Two Impairment gait dysfunction; antalgic Short Term Goal (STG) Patient able to ambulate with FWW with minimal to no limp 200 ft. 08/01/20: post-op patient ambulates independently with FWW but with minimal left knee flexion, holds very stiff. STG Duration 08/14/20 Switch Inspector Goal (LTG) Patient able to ambulate on all usual surfaces with least restrictive device without limp and with normal mechanics . LTG Duration 09/15/20 One Impairment pain left knee limiting function: 5/10 on pain scale Nursing Home Goal (LTG) Patient able to do all usual activities with pain no greater than 2/10 LTG Duration 09/15/20 Assessment Summary Assessment atient still has difficulty with letting knee bend with gait, improves with cues and focus. Knee PROM 12-98 degrees today. PT ecourages continued HEP, stretching throughout the day especially LE propped on chair for stretch into extension. Safe gait with use of cane. Physical Therapy Plan Frequency and Duration Frequency of Treatment 12 weeks Duration of Treatment 8 weeks Plan of Care Start Date 07/17/20 Plan of Care End Date 09/15/20 Therapeutic Interventions Therapeutic Interventions Gait Training,Home Exercise Program,Joint Mobilizations, Manual Therapy,Neuromuscular Re-education,Patient/Caregiver Education,Self-Care/Home Management,Soft Tissue Mobilization,Taping, Therapeutic Activities, Therapeutic Exercises Modalities Cold Pack/Ice Massage,Electric Stimulation Next Visit Focus/Plan Next Note Type Treatment Note Next Visit Plan Continue PT, increased manual techniques including use of rolling pin for self-manual treatment. PT manual treatment to facilitate increased ROM.
--- NOTE | 2020-08-20 10:04 | PT.OTN ---
Current Diagnoses Bilateral primary osteoarthritis of knee (08/20/20) Difficulty in walking, not elsewhere classified (08/20/20) Weakness (08/20/20) Physical Therapy Treatment Note PT-OP-A Visit Information Start: 07/16/20 13:38 Freq: Status: Active Protocol: Document 08/20/20 09:04 SAK (Rec: 08/20/20 09:49 SAK [id number]) Out-Patient Physical Therapy Visit Information Visit Information Visit Type Treatment Note Visit Start Time 09:00 Visit Stop Time 09:58 Total Visit Minutes 58 Visit Number 8 Number of FARM SERVICE ADVISER Visits 0 PT-OP-B Current Condition Start: 07/16/20 13:38 Freq: Status: Active Protocol: Document 07/17/20 09:07 SAK (Rec: 07/17/20 10:06 SAK [id number]) Current Condition History of Current Condition Onset Date years Current Complaints left knee TKA scheduled for 07/24/20 History of Current Condition Long history left knee pain, wasn't approved for TKA until she lost some weight. Now scheduled 07/24/20. States her knee is hard to bend, very painful when bends her leg with walking. Has 3 stairs to enter, no railing but states she will have her son to help. as throw rug at front door and at shower but are nonskid. Lives alone on son's property (3 min away). Has PT scheduled after surgery. Has FWW. Treatment Goals Patient/Caregiver Goals Recover full function of her left knee Prior Functional Status Baseline Function- ADL's Independent Baseline Function- Mobility Independent Baseline Function- Gait no pain or limp Baseline Function- Work/School retired Baseline Function- Recreation/Hobbies limited by pain Current Functional Impairments (Reported) Functional Limitations- ADL's slow and painful Functional Limitations- Mobility/Gait slow and painful, step-to on stairs Functional Limitations- Work/School retired Functional Limitations- Recreation/ limited by pain Hobbies PT-OP-C Subjective Start: 07/16/20 13:38 Freq: Status: Active Protocol: Document 08/20/20 09:04 SAK (Rec: 08/20/20 09:49 SAK [id number]) OP-PT Subjective Patient Comments Patient Comments No pain, walking without cane at home. Fair compliance to HEP. States she feels like she can flatten both knees down to bed. PT-OP-G Mobility & Gait Start: 07/16/20 13:38 Freq: Status: Active Protocol: Document 07/17/20 09:07 [facility] (Rec: 07/17/20 10:06 [facility] [id number]) OP Mobility Evaluation Transfers Sit to Stand independent with use of UE's OP Gait Assessment Gait Gait Assistance Required: Independent Assistive Devices Assistive Device Front Wheeled Walker Gait Deviations General Gait Pattern Antalgic Stair Climbing Evaluation Evaluation Level of Assist On Stairs Independent Devices Stair Climbing Assistive Devices Left Railing,Right Railing Technique/Endurance Stair Climbing Direction Ascend and Descend Stair Climbing Technique Step to Step PT-OP-K Range of Motion Start: 07/16/20 13:38 Freq: Status: Active Protocol: Document 08/02/20 09:04 [facility] (Rec: 08/02/20 13:00 [facility] [id number]) Knee Goniometric Range of Motion Knee Left Knee ROM WFL No Flexion Active (degrees) 74 Flexion Passive (degrees) 83 Extension Active (degrees) 29 Extension Passive (degrees) 15 PT-OP-M Strength Start: 07/16/20 13:38 Freq: Status: Active Protocol: Document 08/02/20 09:04 [facility] (Rec: 08/02/20 13:00 [facility] [id number]) Knee Strength Knee Manual Muscle Testing Left Flexion (S2) 3- Fair- Extension (L3) 3- Fair- PT-OP-Q Treatments Start: 07/16/20 13:38 Freq: Status: Active Protocol: Document 08/20/20 09:04 [facility] (Rec: 08/20/20 09:49 [facility] [id number]) Cardio Equipment Recumbent Elliptical (Biodex) Duration (Minutes) 8 Resistance 1 Seat Position 8 Other UE/LE 8 min- next visit decrease UE assist. Gym Equipment Shuttle Recovery Unilateral Squats Resistance 25 Shuttle Recovery Platform Stable Reps/Time x10 Bilateral Squats Resistance 50 Shuttle Recovery Platform Stable Reps/Time 2x20 Therapeutic Exercises Supine Exercises gravity assisted knee flex Side left Resistance AROM Reps/Minutes x10 Comments while on shuttle leg press using slider sheet, added to HEP Hamstring stretch Reps/Minutes 2x30 Comments manual quad set Side left Reps/Minutes 10x5 Comments ankle on towel roll, manual assist Sitting Exercises dangling Reps/Minutes 10x Comments knee flex/ext plus end-range stretches with opposite LE knee flex Sitting Exercise Name with slider sheet, chair scoots Reps/Minutes 10x, 5x with 5 holds LAQ Side bilateral Reps/Minutes 10x5 Standing Exercises hurdles Resistance L2 TB Reps/Minutes 6x4 Comments rpabha UE support Gait Training Gait Activity stairs Description 4 stair, 6 stairs Device Used bilateral railing Level of Assistance SBA, cues Treatment Focus alternating pattern level surface Description using friend's SPC Device Used SPC Level of Assistance SBA and cues Surface level Distance/Duration 60' Treatment Focus incr knee flexion and extension during swing through heel strike w/gait Manual Therapy Treatment Soft Tissue Mobilization left knee Body Location distal HS, calf, quads Mobilization Type Myofascial Release,Rolling, Strumming Intensity/Depth Superficial Body Position Hooklying PT-OP-R Modalities Start: 07/16/20 13:38 Freq: Status: Active Protocol: Document 08/20/20 09:04 [facility] (Rec: 08/20/20 09:49 [facility] [id number]) Hot Pack/Cold Pack Treatment Cold Pack Location L knee Patient Position Hooklying Treatment Duration (minutes) 8 Patient Tolerance Good Comments good feedback tolerance PT-OP-T Assessment and Plan Start: 07/16/20 13:38 Freq: Status: Active Protocol: Document 08/20/20 09:04 [facility] (Rec: 08/20/20 09:49 [facility] [id number]) Physical Therapy Assessment Goals Four Impairment limited left knee ROM 32-69 actively Short Term Goal (STG) Improve left knee ROM to 10-95 degrees 08/02/20: 26-79 AROM 15-83 PROM 08/13/20: 15-87 deg PROM supine post cryocuff. STG Duration 08/14/20 Longterm Goal (LTG) Improve left knee ROM to 0-120 degrees LTG Duration 09/15/20 Five Impairment strength 3-/5 left knee Short Term Goal (STG) Patient to be independent and compliant with HEPwith HEP STG Duration 08/14/20 Steel Barrel Reamer Goal (LTG) Improve left knee strength to 4+/5 LTG Duration 09/15/20 Three Impairment Lower extremity functional scale 45% Short Term Goal (STG) Improve LEFS to 55% STG Duration 08/14/20 Steel Barrel Reamer Goal (LTG) Improve LEFS score to at least 70% as measure of improved activity tolerance LTG Duration 09/15/20 Two Impairment gait dysfunction; antalgic Short Term Goal (STG) Patient able to ambulate with FWW with minimal to no limp 200 ft. 08/01/20: post-op patient ambulates independently with FWW but with minimal left knee flexion, holds very stiff. STG Duration 08/14/20 Steel Barrel Reamer Goal (LTG) Patient able to ambulate on all usual surfaces with least restrictive device without limp and with normal mechanics . LTG Duration 09/15/20 One Impairment pain left knee limiting function: 5/10 on pain scale Longterm Goal (LTG) Patient able to do all usual activities with pain no greater than 2/10 LTG Duration 09/15/20 Assessment Summary Assessment Decreasing pain, improving gait though still with tendency to walk with stiff gait. Patient needed further instruction to push into stretch with her exercises to continue to increase her ROM. ROM today 10-100. Physical Therapy Plan Frequency and Duration Frequency of Treatment 12 weeks Duration of Treatment 8 weeks Plan of Care Start Date 07/17/20 Plan of Care End Date 09/15/20 Therapeutic Interventions Therapeutic Interventions Gait Training,Home Exercise Program,Joint Mobilizations, Manual Therapy,Neuromuscular Re-education,Patient/Caregiver Education,Self-Care/Home Management,Soft Tissue Mobilization,Taping, Therapeutic Activities, Therapeutic Exercises Modalities Cold Pack/Ice Massage,Electric Stimulation Next Visit Focus/Plan Next Note Type Treatment Note Next Visit Plan Continue TKA rehab, add knee flex with theraband, backward walking for increased knee extension.
--- NOTE | 2020-08-22 17:35 | PT.OTN ---
Current Diagnoses Bilateral primary osteoarthritis of knee (08/22/20) Difficulty in walking, not elsewhere classified (08/22/20) Weakness (08/22/20) Physical Therapy Treatment Note PT-OP-A Visit Information Start: 07/16/20 13:38 Freq: Status: Active Protocol: Document 08/22/20 09:11 SAK (Rec: 08/22/20 09:46 SAK [id number]) Out-Patient Physical Therapy Visit Information Visit Information Visit Type Treatment Note Visit Start Time 09:00 Visit Stop Time 09:58 Total Visit Minutes 58 Visit Number 8 Number of SMALL EQUIPMENT OPERATOR Visits 0 PT-OP-B Current Condition Start: 07/16/20 13:38 Freq: Status: Active Protocol: Document 07/17/20 09:07 SAK (Rec: 07/17/20 10:06 SAK [id number]) Current Condition History of Current Condition Onset Date years Current Complaints left knee TKA scheduled for 07/24/20 History of Current Condition Long history left knee pain, wasn't approved for TKA until she lost some weight. Now scheduled 07/24/20. States her knee is hard to bend, very painful when bends her leg with walking. Has 3 stairs to enter, no railing but states she will have her son to help. as throw rug at front door and at shower but are nonskid. Lives alone on son's property (3 min away). Has PT scheduled after surgery. Has FWW. Treatment Goals Patient/Caregiver Goals Recover full function of her left knee Prior Functional Status Baseline Function- ADL's Independent Baseline Function- Mobility Independent Baseline Function- Gait no pain or limp Baseline Function- Work/School retired Baseline Function- Recreation/Hobbies limited by pain Current Functional Impairments (Reported) Functional Limitations- ADL's slow and painful Functional Limitations- Mobility/Gait slow and painful, step-to on stairs Functional Limitations- Work/School retired Functional Limitations- Recreation/ limited by pain Hobbies PT-OP-C Subjective Start: 07/16/20 13:38 Freq: Status: Active Protocol: Document 08/22/20 09:11 SAK (Rec: 08/22/20 09:46 SAK [id number]) OP-PT Subjective Patient Comments Patient Comments exhausted after last PT session. States still having difficulty with bending her knee with walking but trying to focus on it. More walking than stretching at home PT-OP-G Mobility & Gait Start: 07/16/20 13:38 Freq: Status: Active Protocol: Document 07/17/20 09:07 [facility] (Rec: 07/17/20 10:06 [facility] [id number]) OP Mobility Evaluation Transfers Sit to Stand independent with use of UE's OP Gait Assessment Gait Gait Assistance Required: Independent Assistive Devices Assistive Device Front Wheeled Walker Gait Deviations General Gait Pattern Antalgic Stair Climbing Evaluation Evaluation Level of Assist On Stairs Independent Devices Stair Climbing Assistive Devices Left Railing,Right Railing Technique/Endurance Stair Climbing Direction Ascend and Descend Stair Climbing Technique Step to Step PT-OP-K Range of Motion Start: 07/16/20 13:38 Freq: Status: Active Protocol: Document 08/02/20 09:04 [facility] (Rec: 08/02/20 13:00 [facility] [id number]) Knee Goniometric Range of Motion Knee Left Knee ROM WFL No Flexion Active (degrees) 74 Flexion Passive (degrees) 83 Extension Active (degrees) 29 Extension Passive (degrees) 15 PT-OP-M Strength Start: 07/16/20 13:38 Freq: Status: Active Protocol: Document 08/02/20 09:04 [facility] (Rec: 08/02/20 13:00 [facility] [id number]) Knee Strength Knee Manual Muscle Testing Left Flexion (S2) 3- Fair- Extension (L3) 3- Fair- PT-OP-Q Treatments Start: 07/16/20 13:38 Freq: Status: Active Protocol: Document 08/22/20 09:11 [facility] (Rec: 08/22/20 09:46 [facility] [id number]) Cardio Equipment Recumbent Elliptical (Biodex) Duration (Minutes) 5 Resistance 1 Seat Position 1 Other UE/LE Recumbent Bicycle Duration (Minutes) 5 Resistance 1 Seat Position 7 Gym Equipment Shuttle Recovery Unilateral Squats Resistance 25 Shuttle Recovery Platform Stable Reps/Time x10 Bilateral Squats Resistance 50 Shuttle Recovery Platform Stable Reps/Time 2x20 Therapeutic Exercises Supine Exercises gravity assisted knee flex Side left Resistance AROM Reps/Minutes x10 Comments while on shuttle leg press using slider sheet, added to HEP Hamstring stretch Reps/Minutes 2x30 Comments manual quad set Side left Reps/Minutes 10x5 Comments ankle on towel roll, manual assist Sitting Exercises sit to stand Reps/Minutes 5x Comments emphasis on equal use of LE's dangling Reps/Minutes 10x Comments knee flex/ext plus end-range stretches with opposite LE knee flex Sitting Exercise Name with slider sheet, chair scoots Reps/Minutes 10x, 5x with 5 holds LAQ Side bilateral Reps/Minutes 10x5 Standing Exercises hurdles Resistance L2 TB Reps/Minutes 6x4 Comments prabha UE support Gait Training Gait Activity level surface Description using friend's SPC Device Used SPC Level of Assistance SBA and cues Surface level Distance/Duration 60' Treatment Focus incr knee flexion and extension during swing through heel strike w/gait Manual Therapy Treatment Soft Tissue Mobilization left knee Body Location distal HS, calf, quads Mobilization Type Myofascial Release,Rolling, Strumming Intensity/Depth Superficial Body Position Hooklying PT-OP-R Modalities Start: 07/16/20 13:38 Freq: Status: Active Protocol: Document 08/22/20 09:11 SAK (Rec: 08/22/20 09:46 [facility] [id number]) Hot Pack/Cold Pack Treatment Cold Pack Location L knee Patient Position Hooklying Treatment Duration (minutes) 8 Patient Tolerance Good Comments good feedback tolerance PT-OP-T Assessment and Plan Start: 07/16/20 13:38 Freq: Status: Active Protocol: Document 08/22/20 09:11 SAK (Rec: 08/22/20 09:46 [facility] [id number]) Physical Therapy Assessment Goals Four Impairment limited left knee ROM 32-69 actively Short Term Goal (STG) Improve left knee ROM to 10-95 degrees 08/02/20: 26-79 AROM 15-83 PROM 08/13/20: 15-87 deg PROM supine post cryocuff. STG Duration 08/14/20 [place] Hardware Installer Goal (LTG) Improve left knee ROM to 0-120 degrees LTG Duration 09/15/20 Five Impairment strength 3-/5 left knee Short Term Goal (STG) Patient to be independent and compliant with HEPwith HEP STG Duration 08/14/20 Jail Goal (LTG) Improve left knee strength to 4+/5 LTG Duration 09/15/20 Three Impairment Lower extremity functional scale 45% Short Term Goal (STG) Improve LEFS to 55% STG Duration 08/14/20 [place] Hardware Installer Goal (LTG) Improve LEFS score to at least 70% as measure of improved activity tolerance LTG Duration 09/15/20 Two Impairment gait dysfunction; antalgic Short Term Goal (STG) Patient able to ambulate with FWW with minimal to no limp 200 ft. 08/01/20: post-op patient ambulates independently with FWW but with minimal left knee flexion, holds very stiff. STG Duration 08/14/20 [place] Hardware Installer Goal (LTG) Patient able to ambulate on all usual surfaces with least restrictive device without limp and with normal mechanics . LTG Duration 09/15/20 One Impairment pain left knee limiting function: 5/10 on pain scale Jail Goal (LTG) Patient able to do all usual activities with pain no greater than 2/10 LTG Duration 09/15/20 Assessment Summary Assessment left knee AAROM 10-103, continue to emphasize long slow stretches for patient, need for emphasis on ROM with HEP. Incision healing well. Able to due full revolution with first trial recumbant ex bike today. Physical Therapy Plan Frequency and Duration Frequency of Treatment 12 weeks Duration of Treatment 8 weeks Plan of Care Start Date 07/17/20 Plan of Care End Date 09/15/20 Therapeutic Interventions Therapeutic Interventions Gait Training,Home Exercise Program,Joint Mobilizations, Manual Therapy,Neuromuscular Re-education,Patient/Caregiver Education,Self-Care/Home Management,Soft Tissue Mobilization,Taping, Therapeutic Activities, Therapeutic Exercises Modalities Cold Pack/Ice Massage,Electric Stimulation Next Visit Focus/Plan Next Note Type Treatment Note Next Visit Plan Continue TKA rehab, add knee flex with theraband, backward walking for increased knee extension. Consider prone stretch into knee extension. Increase scar mobilization as incision heals.
--- NOTE | 2020-08-27 16:16 | PT.OTN ---
Current Diagnoses Bilateral primary osteoarthritis of knee (08/27/20) Difficulty in walking, not elsewhere classified (08/27/20) Weakness (08/27/20) Physical Therapy Treatment Note PT-OP-A Visit Information Start: 07/16/20 13:38 Freq: Status: Active Protocol: Document 08/27/20 09:06 SAK (Rec: 08/27/20 09:47 SAK [id number]) Out-Patient Physical Therapy Visit Information Visit Information Visit Type Treatment Note Visit Start Time 09:02 Visit Stop Time 09:58 Total Visit Minutes 58 Visit Number 10 Number of HEAD OF PRECISION TARGETING Visits 0 PT-OP-B Current Condition Start: 07/16/20 13:38 Freq: Status: Active Protocol: Document 07/17/20 09:07 SAK (Rec: 07/17/20 10:06 SAK [id number]) Current Condition History of Current Condition Onset Date years Current Complaints left knee TKA scheduled for 07/24/20 History of Current Condition Long history left knee pain, wasn't approved for TKA until she lost some weight. Now scheduled 07/24/20. States her knee is hard to bend, very painful when bends her leg with walking. Has 3 stairs to enter, no railing but states she will have her son to help. as throw rug at front door and at shower but are nonskid. Lives alone on son's property (3 min away). Has PT scheduled after surgery. Has FWW. Treatment Goals Patient/Caregiver Goals Recover full function of her left knee Prior Functional Status Baseline Function- ADL's Independent Baseline Function- Mobility Independent Baseline Function- Gait no pain or limp Baseline Function- Work/School retired Baseline Function- Recreation/Hobbies limited by pain Current Functional Impairments (Reported) Functional Limitations- ADL's slow and painful Functional Limitations- Mobility/Gait slow and painful, step-to on stairs Functional Limitations- Work/School retired Functional Limitations- Recreation/ limited by pain Hobbies PT-OP-C Subjective Start: 07/16/20 13:38 Freq: Status: Active Protocol: Document 08/27/20 09:06 SAK (Rec: 08/27/20 09:47 SAK [id number]) OP-PT Subjective Patient Comments Patient Comments Patient reports she is moving around more, has to think about trying to bend her knee due to habits of movement. PT-OP-G Mobility & Gait Start: 07/16/20 13:38 Freq: Status: Active Protocol: Document 07/17/20 09:07 [facility] (Rec: 07/17/20 10:06 [facility] [id number]) OP Mobility Evaluation Transfers Sit to Stand independent with use of UE's OP Gait Assessment Gait Gait Assistance Required: Independent Assistive Devices Assistive Device Front Wheeled Walker Gait Deviations General Gait Pattern Antalgic Stair Climbing Evaluation Evaluation Level of Assist On Stairs Independent Devices Stair Climbing Assistive Devices Left Railing,Right Railing Technique/Endurance Stair Climbing Direction Ascend and Descend Stair Climbing Technique Step to Step PT-OP-K Range of Motion Start: 07/16/20 13:38 Freq: Status: Active Protocol: Document 08/02/20 09:04 [facility] (Rec: 08/02/20 13:00 [facility] [id number]) Knee Goniometric Range of Motion Knee Left Knee ROM WFL No Flexion Active (degrees) 74 Flexion Passive (degrees) 83 Extension Active (degrees) 29 Extension Passive (degrees) 15 PT-OP-M Strength Start: 07/16/20 13:38 Freq: Status: Active Protocol: Document 08/02/20 09:04 [facility] (Rec: 08/02/20 13:00 [facility] [id number]) Knee Strength Knee Manual Muscle Testing Left Flexion (S2) 3- Fair- Extension (L3) 3- Fair- PT-OP-Q Treatments Start: 07/16/20 13:38 Freq: Status: Active Protocol: Document 08/27/20 09:06 [facility] (Rec: 08/27/20 09:47 [facility] [id number]) Cardio Equipment Recumbent Bicycle Duration (Minutes) 10 Resistance 1 Seat Position 9-7 Gym Equipment Shuttle Recovery Unilateral Squats Resistance 25 Shuttle Recovery Platform Stable Reps/Time x10 Bilateral Squats Resistance 50 Shuttle Recovery Platform Stable Reps/Time 2x20 Therapeutic Exercises Supine Exercises gravity assisted knee flex Side left Resistance AROM Reps/Minutes x10 Comments while on shuttle leg press using slider sheet, added to HEP Hamstring stretch Reps/Minutes 2x30 Comments manual SAQ Side bilateral Equipment Used bolster Reps/Minutes 10x5 Comments manual assist for inc extension SLR Side bilateral Reps/Minutes 10x quad set Side left Reps/Minutes 10x5 Comments ankle on towel roll, manual assist Sitting Exercises LAQ Side bilateral Reps/Minutes 10x5 Standing Exercises stair lunge Reps/Minutes 12x Comments 2nd of 6 inch stairs knee extension Resistance L2 TB Reps/Minutes 10x HC stretch Reps/Minutes 2x30 Gait Training Gait Activity stairs Description 4 stair, 6 stairs Device Used bilateral railing Level of Assistance SBA, cues Treatment Focus alternating pattern level surface Description using friend's SPC Device Used SPC Level of Assistance SBA and cues Surface level Distance/Duration 60' Treatment Focus incr knee flexion and extension during swing through heel strike w/gait Manual Therapy Treatment Soft Tissue Mobilization left knee Body Location distal HS, calf, quads Mobilization Type Myofascial Release,Rolling, Strumming Intensity/Depth Superficial Body Position Hooklying Comments Cetaphil lotion applied due to extreme dryness of skin. Joint Mobilizations patella Direction med/lat, sup/inf Grade II Body Position Supine Reps/Duration 3 min PT-OP-R Modalities Start: 07/16/20 13:38 Freq: Status: Active Protocol: Document 08/27/20 09:06 [facility] (Rec: 08/27/20 09:47 [facility] [id number]) Hot Pack/Cold Pack Treatment Cold Pack Location L knee Patient Position Hooklying Treatment Duration (minutes) 10 Patient Tolerance Good Comments good feedback tolerance PT-OP-T Assessment and Plan Start: 07/16/20 13:38 Freq: Status: Active Protocol: Document 08/27/20 09:06 [facility] (Rec: 08/27/20 09:47 [facility] [id number]) Physical Therapy Assessment Goals Four Impairment limited left knee ROM 32-69 actively Short Term Goal (STG) Improve left knee ROM to 10-95 degrees 08/02/20: 26-79 AROM 15-83 PROM 08/13/20: 15-87 deg PROM supine post cryocuff. STG Duration 08/14/20 Skilled Nursing Goal (LTG) Improve left knee ROM to 0-120 degrees LTG Duration 09/15/20 Five Impairment strength 3-/5 left knee Short Term Goal (STG) Patient to be independent and compliant with HEPwith HEP STG Duration 08/14/20 Asbestos Removal Worker Goal (LTG) Improve left knee strength to 4+/5 LTG Duration 09/15/20 Three Impairment Lower extremity functional scale 45% Short Term Goal (STG) Improve LEFS to 55% STG Duration 08/14/20 Skilled Nursing Goal (LTG) Improve LEFS score to at least 70% as measure of improved activity tolerance LTG Duration 09/15/20 Two Impairment gait dysfunction; antalgic Short Term Goal (STG) Patient able to ambulate with FWW with minimal to no limp 200 ft. 08/01/20: post-op patient ambulates independently with FWW but with minimal left knee flexion, holds very stiff. STG Duration 08/14/20 Skilled Nursing Goal (LTG) Patient able to ambulate on all usual surfaces with least restrictive device without limp and with normal mechanics . LTG Duration 09/15/20 One Impairment pain left knee limiting function: 5/10 on pain scale Skilled Nursing Goal (LTG) Patient able to do all usual activities with pain no greater than 2/10 LTG Duration 09/15/20 Assessment Summary Assessment left knee AAROM 10-104, stiff today, encouraged increased stretching at home, begin self -massage of scar as now healed with decreased scar mobility especially proximally. Will teach patellar mobs next session. Physical Therapy Plan Frequency and Duration Frequency of Treatment 12 weeks Duration of Treatment 8 weeks Plan of Care Start Date 07/17/20 Plan of Care End Date 09/15/20 Therapeutic Interventions Therapeutic Interventions Gait Training,Home Exercise Program,Joint Mobilizations, Manual Therapy,Neuromuscular Re-education,Patient/Caregiver Education,Self-Care/Home Management,Soft Tissue Mobilization,Taping, Therapeutic Activities, Therapeutic Exercises Modalities Cold Pack/Ice Massage,Electric Stimulation Next Visit Focus/Plan Next Note Type Treatment Note Next Visit Plan Increase emphasis on manual treatment to include patellar mob, scar mobilization. Contract/relax to improve knee flex. Possible prone knee extension stretch.
--- NOTE | 2020-08-29 16:55 | PT.OPPN ---
Current Diagnoses Bilateral primary osteoarthritis of knee (08/29/20) Difficulty in walking, not elsewhere classified (08/29/20) Weakness (08/29/20) Physical Therapy Progress Note PT-OP-A Visit Information Start: 07/16/20 13:38 Freq: Status: Active Protocol: Document 08/29/20 09:08 SAK (Rec: 08/29/20 09:46 SAK [id number]) Out-Patient Physical Therapy Visit Information Visit Information Visit Type Treatment Note Visit Start Time 09:01 Visit Stop Time 10:00 Total Visit Minutes 59 Visit Number 11 Number of NATURAL FOODS CLERK Visits 0 PT-OP-B Current Condition Start: 07/16/20 13:38 Freq: Status: Active Protocol: Document 07/17/20 09:07 SAK (Rec: 07/17/20 10:06 SAK [id number]) Current Condition History of Current Condition Onset Date years Current Complaints left knee TKA scheduled for 07/24/20 History of Current Condition Long history left knee pain, wasn't approved for TKA until she lost some weight. Now scheduled 07/24/20. States her knee is hard to bend, very painful when bends her leg with walking. Has 3 stairs to enter, no railing but states she will have her son to help. as throw rug at front door and at shower but are nonskid. Lives alone on son's property (3 min away). Has PT scheduled after surgery. Has FWW. Treatment Goals Patient/Caregiver Goals Recover full function of her left knee Prior Functional Status Baseline Function- ADL's Independent Baseline Function- Mobility Independent Baseline Function- Gait no pain or limp Baseline Function- Work/School retired Baseline Function- Recreation/Hobbies limited by pain Current Functional Impairments (Reported) Functional Limitations- ADL's slow and painful Functional Limitations- Mobility/Gait slow and painful, step-to on stairs Functional Limitations- Work/School retired Functional Limitations- Recreation/ limited by pain Hobbies PT-OP-C Subjective Start: 07/16/20 13:38 Freq: Status: Active Protocol: Document 08/29/20 09:08 SAK (Rec: 08/29/20 09:46 SAK [id number]) OP-PT Subjective Patient Comments Patient Comments No new c/o, continues to try to do HEP, though caring for her grandaughter during day. PT-OP-G Mobility & Gait Start: 07/16/20 13:38 Freq: Status: Active Protocol: Document 07/17/20 09:07 SAK (Rec: 07/17/20 10:06 [facility] [id number]) OP Mobility Evaluation Transfers Sit to Stand independent with use of UE's OP Gait Assessment Gait Gait Assistance Required: Independent Assistive Devices Assistive Device Front Wheeled Walker Gait Deviations General Gait Pattern Antalgic Stair Climbing Evaluation Evaluation Level of Assist On Stairs Independent Devices Stair Climbing Assistive Devices Left Railing,Right Railing Technique/Endurance Stair Climbing Direction Ascend and Descend Stair Climbing Technique Step to Step PT-OP-K Range of Motion Start: 07/16/20 13:38 Freq: Status: Active Protocol: Document 08/02/20 09:04 [facility] (Rec: 08/02/20 13:00 [facility] [id number]) Knee Goniometric Range of Motion Knee Measured in Degrees Left Knee ROM WFL No Flexion Active (degrees) 74 Flexion Passive (degrees) 83 Extension Active (degrees) 29 Extension Passive (degrees) 15 PT-OP-M Strength Start: 07/16/20 13:38 Freq: Status: Active Protocol: Document 08/02/20 09:04 [facility] (Rec: 08/02/20 13:00 [facility] [id number]) Knee Strength Knee Manual Muscle Testing Left Flexion (S2) 3- Fair- Extension (L3) 3- Fair- PT-OP-T Assessment and Plan Start: 07/16/20 13:38 Freq: Status: Active Protocol: Document 08/29/20 09:08 [facility] (Rec: 08/29/20 09:46 [facility] [id number]) Physical Therapy Assessment Goals Four Impairment limited left knee ROM 32-69 actively Short Term Goal (STG) Improve left knee ROM to 10-95 degrees 08/02/20: 26-79 AROM 15-83 PROM 08/13/20: 15-87 deg PROM supine post cryocuff. STG Duration 08/14/20 Long-Term Goal (LTG) Improve left knee ROM to 0-120 degrees LTG Duration 09/15/20 Five Impairment strength 3-/5 left knee Short Term Goal (STG) Patient to be independent and compliant with HEPwith HEP STG Duration 08/14/20 Night Custodian Goal (LTG) Improve left knee strength to 4+/5 LTG Duration 09/15/20 Three Impairment Lower extremity functional scale 45% Short Term Goal (STG) Improve LEFS to 55% STG Duration 08/14/20 Long-Term Goal (LTG) Improve LEFS score to at least 70% as measure of improved activity tolerance LTG Duration 09/15/20 Two Impairment gait dysfunction; antalgic Short Term Goal (STG) Patient able to ambulate with FWW with minimal to no limp 200 ft. 08/01/20: post-op patient ambulates independently with FWW but with minimal left knee flexion, holds very stiff. STG Duration 08/14/20 Long-Term Goal (LTG) Patient able to ambulate on all usual surfaces with least restrictive device without limp and with normal mechanics . LTG Duration 09/15/20 One Impairment pain left knee limiting function: 5/10 on pain scale Long-Term Goal (LTG) Patient able to do all usual activities with pain no greater than 2/10 LTG Duration 09/15/20 Assessment Summary Assessment left knee AAROM 8-106-104, improved gait on 6 stairs, inconsistent bend of knee during gait. 08/29/20 16:54 PT OP Treatment Note by Nissa Sanchez Current Diagnoses Bilateral primary osteoarthritis of knee (08/29/20) Difficulty in walking, not elsewhere classified (08/29/20) Weakness (08/29/20) Physical Therapy Treatment Note PT-OP-A Visit Information Start: 07/16/20 13:38 Freq: Status: Active Protocol: Document 08/29/20 09:08 SAK (Rec: 08/29/20 09:46 [facility] [id number]) Out-Patient Physical Therapy Visit Information Visit Information Visit Type Treatment Note Visit Start Time 09:01 Visit Stop Time 09:58 Total Visit Minutes 59 Visit Number 1 Number of NATURAL FOODS CLERK Visits 0 PT-OP-B Current Condition Start: 07/16/20 13:38 Freq: Status: Active Protocol: Document 07/17/20 09:07 SAK (Rec: 07/17/20 10:06 SAK [id number]) Current Condition History of Current Condition Onset Date years Current Complaints left knee TKA scheduled for 07/24/20 History of Current Condition Long history left knee pain, wasn't approved for TKA until she lost some weight. Now scheduled 07/24/20. States her knee is hard to bend, very painful when bends her leg with walking. Has 3 stairs to enter, no railing but states she will have her son to help. as throw rug at front door and at shower but are nonskid. Lives alone on son's property (3 min away). Has PT scheduled after surgery. Has FWW. Treatment Goals Patient/Caregiver Goals Recover full function of her left knee Prior Functional Status Baseline Function- ADL's Independent Baseline Function- Mobility Independent Baseline Function- Gait no pain or limp Baseline Function- Work/School retired Baseline Function- Recreation/Hobbies limited by pain Current Functional Impairments (Reported) Functional Limitations- ADL's slow and painful Functional Limitations- Mobility/Gait slow and painful, step-to on stairs Functional Limitations- Work/School retired Functional Limitations- Recreation/ limited by pain Hobbies PT-OP-C Subjective Start: 07/16/20 13:38 Freq: Status: Active Protocol: Document 08/29/20 09:08 [facility] (Rec: 08/29/20 09:46 [facility] [id number]) OP-PT Subjective Patient Comments Patient Comments No new c/o, continues to try to do HEP, though caring for her ceasar during day. PT-OP-G Mobility & Gait Start: 07/16/20 13:38 Freq: Status: Active Protocol: Document 07/17/20 09:07 [facility] (Rec: 07/17/20 10:06 [facility] [id number]) OP Mobility Evaluation Transfers Sit to Stand independent with use of UE's OP Gait Assessment Gait Gait Assistance Required: Independent Assistive Devices Assistive Device Front Wheeled Walker Gait Deviations General Gait Pattern Antalgic Stair Climbing Evaluation Evaluation Level of Assist On Stairs Independent Devices Stair Climbing Assistive Devices Left Railing,Right Railing Technique/Endurance Stair Climbing Direction Ascend and Descend Stair Climbing Technique Step to Step PT-OP-K Range of Motion Start: 07/16/20 13:38 Freq: Status: Active Protocol: Document 08/02/20 09:04 [facility] (Rec: 08/02/20 13:00 [facility] [id number]) Knee Goniometric Range of Motion Knee Left Knee ROM WFL No Flexion Active (degrees) 74 Flexion Passive (degrees) 83 Extension Active (degrees) 29 Extension Passive (degrees) 15 PT-OP-M Strength Start: 07/16/20 13:38 Freq: Status: Active Protocol: Document 08/02/20 09:04 [facility] (Rec: 08/02/20 13:00 [facility] [id number]) Knee Strength Knee Manual Muscle Testing Left Flexion (S2) 3- Fair- Extension (L3) 3- Fair- PT-OP-Q Treatments Start: 07/16/20 13:38 Freq: Status: Active Protocol: Document 08/29/20 09:08 [facility] (Rec: 08/29/20 09:46 [facility] [id number]) Cardio Equipment Recumbent Bicycle Duration (Minutes) 12 Resistance 1 Seat Position 9-6 Gym Equipment Shuttle Recovery Unilateral Squats Resistance 25 Shuttle Recovery Platform Stable Reps/Time x10 Bilateral Squats Resistance 62 Shuttle Recovery Platform Stable Reps/Time 2x20 Therapeutic Exercises Supine Exercises gravity assisted knee flex Side left Resistance AROM Reps/Minutes x10 Comments while on shuttle leg press using slider sheet, added to HEP Hamstring stretch Reps/Minutes 2x30 Comments manual SAQ Side bilateral Equipment Used bolster Reps/Minutes 10x5 Comments manual assist for inc extension SLR Side bilateral Reps/Minutes 10x quad set Side left Reps/Minutes 10x5 Comments ankle on towel roll, manual assist Standing Exercises stair lunge Reps/Minutes 12x Comments 2nd of 6 inch stairs HC stretch Reps/Minutes 2x30 Gait Training Gait Activity stairs Description 4 stair, 6 stairs Device Used bilateral railing Level of Assistance SBA, cues Treatment Focus alternating pattern level surface Device Used SPC Level of Assistance SBA and cues Surface level Distance/Duration 60' Treatment Focus incr knee flexion and extension during swing through heel strike w/gait Manual Therapy Treatment Soft Tissue Mobilization left knee Body Location distal HS, calf, quads Mobilization Type Myofascial Release,Rolling, Strumming Intensity/Depth Superficial Body Position Hooklying Comments Cetaphil lotion applied due to extreme dryness of skin. Joint Mobilizations patella Direction med/lat, sup/inf Grade II Body Position Supine Reps/Duration 3 min PT-OP-R Modalities Start: 07/16/20 13:38 Freq: Status: Active Protocol: Document 08/27/20 09:06 [facility] (Rec: 08/27/20 09:47 [facility] [id number]) Hot Pack/Cold Pack Treatment Cold Pack Location L knee Patient Position Hooklying Treatment Duration (minutes) 10 Patient Tolerance Good Comments good feedback tolerance PT-OP-T Assessment and Plan Start: 07/16/20 13:38 Freq: Status: Active Protocol: Document 08/29/20 09:08 [facility] (Rec: 08/29/20 09:46 SAK [id number]) Physical Therapy Assessment Goals Four Impairment limited left knee ROM 32-69 actively Short Term Goal (STG) Improve left knee ROM to 10-95 degrees 08/02/20: 26-79 AROM 15-83 PROM 08/13/20: 15-87 deg PROM supine post cryocuff. STG Duration 08/14/20 Long-Term Goal (LTG) Improve left knee ROM to 0-120 degrees LTG Duration 09/15/20 Five Impairment strength 3-/5 left knee Short Term Goal (STG) Patient to be independent and compliant with HEPwith HEP STG Duration 08/14/20 Night Custodian Goal (LTG) Improve left knee strength to 4+/5 LTG Duration 09/15/20 Three Impairment Lower extremity functional scale 45% Short Term Goal (STG) Improve LEFS to 55% STG Duration 08/14/20 Night Custodian Goal (LTG) Improve LEFS score to at least 70% as measure of improved activity tolerance LTG Duration 09/15/20 Two Impairment gait dysfunction; antalgic Short Term Goal (STG) Patient able to ambulate with FWW with minimal to no limp 200 ft. 08/01/20: post-op patient ambulates independently with FWW but with minimal left knee flexion, holds very stiff. STG Duration 08/14/20 Night Custodian Goal (LTG) Patient able to ambulate on all usual surfaces with least restrictive device without limp and with normal mechanics . LTG Duration 09/15/20 One Impairment pain left knee limiting function: 5/10 on pain scale Night Custodian Goal (LTG) Patient able to do all usual activities with pain no greater than 2/10 LTG Duration 09/15/20 Assessment Summary Assessment left knee AAROM 8-106-104, Physical Therapy Plan Frequency and Duration Frequency of Treatment 12 weeks Duration of Treatment 8 weeks Plan of Care Start Date 07/17/20 Plan of Care End Date 09/15/20 Therapeutic Interventions Therapeutic Interventions Gait Training,Home Exercise Program,Joint Mobilizations, Manual Therapy,Neuromuscular Re-education,Patient/Caregiver Education,Self-Care/Home Management,Soft Tissue Mobilization,Taping, Therapeutic Activities, Therapeutic Exercises Modalities Cold Pack/Ice Massage,Electric Stimulation Next Visit Focus/Plan Next Note Type Treatment Note Initialized on 08/29/20 16:54 - END OF NOTE Physical Therapy Plan Frequency and Duration Frequency of Treatment 12 weeks Duration of Treatment 8 weeks Plan of Care Start Date 07/17/20 Plan of Care End Date 09/15/20 Therapeutic Interventions Therapeutic Interventions Gait Training,Home Exercise Program,Joint Mobilizations, Manual Therapy,Neuromuscular Re-education,Patient/Caregiver Education,Self-Care/Home Management,Soft Tissue Mobilization,Taping, Therapeutic Activities, Therapeutic Exercises Modalities Cold Pack/Ice Massage,Electric Stimulation Next Visit Focus/Plan Next Note Type Treatment Note Next Visit Plan Prone knee extension depending on extension ROM, continue contract relax, exercise bike. Progression of functional ex as tolerated to improve knee ROM and strength.
--- NOTE | 2020-09-03 15:55 | PT.OTN ---
Current Diagnoses Bilateral primary osteoarthritis of knee (09/03/20) Difficulty in walking, not elsewhere classified (09/03/20) Weakness (09/03/20) Physical Therapy Treatment Note PT-OP-A Visit Information Start: 07/16/20 13:38 Freq: Status: Active Protocol: Document 09/03/20 08:57 SAK (Rec: 09/03/20 09:45 SAK [id number]) Out-Patient Physical Therapy Visit Information Visit Information Visit Type Treatment Note Visit Start Time 09:01 Visit Stop Time 10:00 Total Visit Minutes 59 Visit Number 11 Number of TRIMMER MACHINE Visits 0 PT-OP-B Current Condition Start: 07/16/20 13:38 Freq: Status: Active Protocol: Document 07/17/20 09:07 SAK (Rec: 07/17/20 10:06 SAK [id number]) Current Condition History of Current Condition Onset Date years Current Complaints left knee TKA scheduled for 07/24/20 History of Current Condition Long history left knee pain, wasn't approved for TKA until she lost some weight. Now scheduled 07/24/20. States her knee is hard to bend, very painful when bends her leg with walking. Has 3 stairs to enter, no railing but states she will have her son to help. as throw rug at front door and at shower but are nonskid. Lives alone on son's property (3 min away). Has PT scheduled after surgery. Has FWW. Treatment Goals Patient/Caregiver Goals Recover full function of her left knee Prior Functional Status Baseline Function- ADL's Independent Baseline Function- Mobility Independent Baseline Function- Gait no pain or limp Baseline Function- Work/School retired Baseline Function- Recreation/Hobbies limited by pain Current Functional Impairments (Reported) Functional Limitations- ADL's slow and painful Functional Limitations- Mobility/Gait slow and painful, step-to on stairs Functional Limitations- Work/School retired Functional Limitations- Recreation/ limited by pain Hobbies PT-OP-C Subjective Start: 07/16/20 13:38 Freq: Status: Active Protocol: Document 09/03/20 08:57 SAK (Rec: 09/03/20 09:45 SAK [id number]) OP-PT Subjective Patient Comments Patient Comments Patient admits to not being very good about exercising over the weekend, distracted by doing things with friends. Pleased that she is able to walk without pain but I know I need to do my exercises. PT-OP-G Mobility & Gait Start: 07/16/20 13:38 Freq: Status: Active Protocol: Document 07/17/20 09:07 [facility] (Rec: 07/17/20 10:06 [facility] [id number]) OP Mobility Evaluation Transfers Sit to Stand independent with use of UE's OP Gait Assessment Gait Gait Assistance Required: Independent Assistive Devices Assistive Device Front Wheeled Walker Gait Deviations General Gait Pattern Antalgic Stair Climbing Evaluation Evaluation Level of Assist On Stairs Independent Devices Stair Climbing Assistive Devices Left Railing,Right Railing Technique/Endurance Stair Climbing Direction Ascend and Descend Stair Climbing Technique Step to Step PT-OP-K Range of Motion Start: 07/16/20 13:38 Freq: Status: Active Protocol: Document 08/02/20 09:04 [facility] (Rec: 08/02/20 13:00 [facility] [id number]) Knee Goniometric Range of Motion Knee Left Knee ROM WFL No Flexion Active (degrees) 74 Flexion Passive (degrees) 83 Extension Active (degrees) 29 Extension Passive (degrees) 15 PT-OP-M Strength Start: 07/16/20 13:38 Freq: Status: Active Protocol: Document 08/02/20 09:04 [facility] (Rec: 08/02/20 13:00 [facility] [id number]) Knee Strength Knee Manual Muscle Testing Left Flexion (S2) 3- Fair- Extension (L3) 3- Fair- PT-OP-Q Treatments Start: 07/16/20 13:38 Freq: Status: Active Protocol: Document 09/03/20 08:57 [facility] (Rec: 09/03/20 09:45 [facility] [id number]) Cardio Equipment Recumbent Bicycle Duration (Minutes) 10 Resistance 1 Seat Position 8-5 Gym Equipment Shuttle Recovery Unilateral Squats Resistance 37 Shuttle Recovery Platform Stable Reps/Time x10 Bilateral Squats Resistance 62 Shuttle Recovery Platform Stable Reps/Time 2x20 Therapeutic Exercises Supine Exercises gravity assisted knee flex Side left Resistance AROM Reps/Minutes x10 Comments while on shuttle leg press using slider sheet, added to HEP Hamstring stretch Reps/Minutes 2x30 Comments manual SAQ Side bilateral Equipment Used bolster Reps/Minutes 10x5 Comments manual assist for inc extension SLR Side bilateral Reps/Minutes 10x quad set Side left Reps/Minutes 10x5 Comments ankle on towel roll, manual assist Sitting Exercises knee flex Resistance L1 TB Reps/Minutes 10x LAQ Side bilateral Reps/Minutes 10x5 Standing Exercises stair lunge Reps/Minutes 12x Comments 2nd of 6 inch stairs HC stretch Equipment Used JULIA Reps/Minutes 2x30 Gait Training Gait Activity stairs Description 6 stairs Device Used prabha railing Level of Assistance SBA, cues Treatment Focus alternating pattern level surface Device Used SPC Level of Assistance SBA and cues Surface level Distance/Duration 100' Treatment Focus incr knee flexion and extension during swing through heel strike w/gait Manual Therapy Treatment Soft Tissue Mobilization left knee Body Location distal HS, calf, quads Mobilization Type Instrument Assisted,Myofascial Release,Rolling,Strumming Intensity/Depth Superficial Body Position Hooklying Comments Instructed in use of rolling pin, self-massage Joint Mobilizations patella Direction med/lat, sup/inf Grade II Body Position Supine Reps/Duration 3 min PT-OP-R Modalities Start: 07/16/20 13:38 Freq: Status: Active Protocol: Document 08/27/20 09:06 [facility] (Rec: 08/27/20 09:47 [facility] [id number]) Hot Pack/Cold Pack Treatment Cold Pack Location L knee Patient Position Hooklying Treatment Duration (minutes) 10 Patient Tolerance Good Comments good feedback tolerance PT-OP-T Assessment and Plan Start: 07/16/20 13:38 Freq: Status: Active Protocol: Document 09/03/20 08:57 SAK (Rec: 09/03/20 09:45 [facility] [id number]) Physical Therapy Assessment Goals Four Impairment limited left knee ROM 32-69 actively Short Term Goal (STG) Improve left knee ROM to 10-95 degrees 08/02/20: 26-79 AROM 15-83 PROM 08/13/20: 15-87 deg PROM supine post cryocuff. STG Duration 08/14/20 Paper And Prints Restorer Goal (LTG) Improve left knee ROM to 0-120 degrees LTG Duration 09/15/20 Five Impairment strength 3-/5 left knee Short Term Goal (STG) Patient to be independent and compliant with HEPwith HEP STG Duration 08/14/20 Senior Living Goal (LTG) Improve left knee strength to 4+/5 LTG Duration 09/15/20 Three Impairment Lower extremity functional scale 45% Short Term Goal (STG) Improve LEFS to 55% STG Duration 08/14/20 Paper And Prints Restorer Goal (LTG) Improve LEFS score to at least 70% as measure of improved activity tolerance LTG Duration 09/15/20 Two Impairment gait dysfunction; antalgic Short Term Goal (STG) Patient able to ambulate with FWW with minimal to no limp 200 ft. 08/01/20: post-op patient ambulates independently with FWW but with minimal left knee flexion, holds very stiff. STG Duration 08/14/20 Senior Living Goal (LTG) Patient able to ambulate on all usual surfaces with least restrictive device without limp and with normal mechanics . LTG Duration 09/15/20 One Impairment pain left knee limiting function: 5/10 on pain scale Senior Living Goal (LTG) Patient able to do all usual activities with pain no greater than 2/10 LTG Duration 09/15/20 Assessment Summary Assessment left knee AAROM 8-105, no improvement due to lack of compliance with HEP. Instructed in importance of compliance of HEP if she wants full motion and function of her knee, patient agreed to increase compliance. Instructed to increase amount of pressure and intensity with self-massage. Physical Therapy Plan Frequency and Duration Frequency of Treatment 12 weeks Duration of Treatment 8 weeks Plan of Care Start Date 07/17/20 Plan of Care End Date 09/15/20 Therapeutic Interventions Therapeutic Interventions Gait Training,Home Exercise Program,Joint Mobilizations, Manual Therapy,Neuromuscular Re-education,Patient/Caregiver Education,Self-Care/Home Management,Soft Tissue Mobilization,Taping, Therapeutic Activities, Therapeutic Exercises Modalities Cold Pack/Ice Massage,Electric Stimulation Next Visit Focus/Plan Next Note Type Treatment Note Next Visit Plan Prone knee extension, contract /relax, increased emphasis on manual techniques to patella and scar.
--- NOTE | 2020-09-05 14:24 | PT.OTN ---
Current Diagnoses Bilateral primary osteoarthritis of knee (09/05/20) Difficulty in walking, not elsewhere classified (09/05/20) Weakness (09/05/20) Physical Therapy Treatment Note PT-OP-A Visit Information Start: 07/16/20 13:38 Freq: Status: Active Protocol: Document 09/05/20 09:04 SAK (Rec: 09/05/20 10:15 SAK [id number]) Out-Patient Physical Therapy Visit Information Visit Information Visit Type Treatment Note Visit Start Time 08:58 Visit Stop Time 09:58 Total Visit Minutes 60 Visit Number 12 Number of CLOTHING TRADES WORKERS Visits 0 PT-OP-B Current Condition Start: 07/16/20 13:38 Freq: Status: Active Protocol: Document 07/17/20 09:07 SAK (Rec: 07/17/20 10:06 SAK [id number]) Current Condition History of Current Condition Onset Date years Current Complaints left knee TKA scheduled for 07/24/20 History of Current Condition Long history left knee pain, wasn't approved for TKA until she lost some weight. Now scheduled 07/24/20. States her knee is hard to bend, very painful when bends her leg with walking. Has 3 stairs to enter, no railing but states she will have her son to help. as throw rug at front door and at shower but are nonskid. Lives alone on son's property (3 min away). Has PT scheduled after surgery. Has FWW. Treatment Goals Patient/Caregiver Goals Recover full function of her left knee Prior Functional Status Baseline Function- ADL's Independent Baseline Function- Mobility Independent Baseline Function- Gait no pain or limp Baseline Function- Work/School retired Baseline Function- Recreation/Hobbies limited by pain Current Functional Impairments (Reported) Functional Limitations- ADL's slow and painful Functional Limitations- Mobility/Gait slow and painful, step-to on stairs Functional Limitations- Work/School retired Functional Limitations- Recreation/ limited by pain Hobbies PT-OP-C Subjective Start: 07/16/20 13:38 Freq: Status: Active Protocol: Document 09/05/20 09:04 SAK (Rec: 09/05/20 10:15 SAK [id number]) OP-PT Subjective Patient Comments Patient Comments Patient reports she did her exercises better yesterday. PT-OP-G Mobility & Gait Start: 07/16/20 13:38 Freq: Status: Active Protocol: Document 07/17/20 09:07 [facility] (Rec: 07/17/20 10:06 [facility] [id number]) OP Mobility Evaluation Transfers Sit to Stand independent with use of UE's OP Gait Assessment Gait Gait Assistance Required: Independent Assistive Devices Assistive Device Front Wheeled Walker Gait Deviations General Gait Pattern Antalgic Stair Climbing Evaluation Evaluation Level of Assist On Stairs Independent Devices Stair Climbing Assistive Devices Left Railing,Right Railing Technique/Endurance Stair Climbing Direction Ascend and Descend Stair Climbing Technique Step to Step PT-OP-K Range of Motion Start: 07/16/20 13:38 Freq: Status: Active Protocol: Document 08/02/20 09:04 [facility] (Rec: 08/02/20 13:00 [facility] [id number]) Knee Goniometric Range of Motion Knee Left Knee ROM WFL No Flexion Active (degrees) 74 Flexion Passive (degrees) 83 Extension Active (degrees) 29 Extension Passive (degrees) 15 PT-OP-M Strength Start: 07/16/20 13:38 Freq: Status: Active Protocol: Document 08/02/20 09:04 [facility] (Rec: 08/02/20 13:00 [facility] [id number]) Knee Strength Knee Manual Muscle Testing Left Flexion (S2) 3- Fair- Extension (L3) 3- Fair- PT-OP-Q Treatments Start: 07/16/20 13:38 Freq: Status: Active Protocol: Document 09/05/20 09:04 [facility] (Rec: 09/05/20 10:15 [facility] [id number]) Cardio Equipment Recumbent Bicycle Duration (Minutes) 10 Resistance 1 Seat Position 10-6 Therapeutic Exercises Supine Exercises gravity assisted knee flex Side left Resistance AROM Reps/Minutes x10 Comments while on shuttle leg press using slider sheet, added to HEP Hamstring stretch Reps/Minutes 2x30 Comments manual SAQ Side bilateral Equipment Used bolster Reps/Minutes 10x5 Comments manual assist for inc extension Prone Exercises prone hang Reps/Minutes 2 min Comments with gentle stretch into extension Sitting Exercises sit to stand Reps/Minutes 5x Comments emphasis on equal use of LE's Standing Exercises HC stretch Equipment Used JULIA Reps/Minutes 2x30 Gait Training Gait Activity stairs Description 6 stairs Device Used prabha railing Level of Assistance SBA, cues Distance/Duration 3X Treatment Focus alternating pattern level surface Device Used SPC Level of Assistance SBA and cues Surface level Distance/Duration 100' Treatment Focus incr knee flexion and extension during swing through heel strike w/gait Manual Therapy Treatment Soft Tissue Mobilization left knee Body Location quads, scar tissue Mobilization Type Instrument Assisted,Myofascial Release,Rolling,Strumming Intensity/Depth Superficial Body Position Hooklying Joint Mobilizations patella Direction med/lat, sup/inf Grade III Body Position Supine Reps/Duration 5 min Self-Care/Home Management Treatment Education Other Education increase emphasis on knee flexion ROM, take pain meds prior to PT, increased pressure with self-massage, obtain thigh-high compression stocking PT-OP-R Modalities Start: 07/16/20 13:38 Freq: Status: Active Protocol: Document 09/05/20 09:04 SAK (Rec: 09/05/20 10:17 SAK [id number]) Hot Pack/Cold Pack Treatment Cold Pack Location L knee Patient Position Hooklying Treatment Duration (minutes) 10 Patient Tolerance Good Comments cryocuff with size G tricofix under PT-OP-T Assessment and Plan Start: 07/16/20 13:38 Freq: Status: Active Protocol: Document 09/05/20 09:04 SAK (Rec: 09/05/20 10:15 SAK [id number]) Physical Therapy Assessment Goals Four Impairment limited left knee ROM 32-69 actively Short Term Goal (STG) Improve left knee ROM to 10-95 degrees 08/02/20: 26-79 AROM 15-83 PROM 08/13/20: 15-87 deg PROM supine post cryocuff. STG Duration 08/14/20 [employer] Goal (LTG) Improve left knee ROM to 0-120 degrees LTG Duration 09/15/20 Five Impairment strength 3-/5 left knee Short Term Goal (STG) Patient to be independent and compliant with HEPwith HEP STG Duration 08/14/20 [employer] Goal (LTG) Improve left knee strength to 4+/5 LTG Duration 09/15/20 Three Impairment Lower extremity functional scale 45% Short Term Goal (STG) Improve LEFS to 55% STG Duration 08/14/20 Intermediate Goal (LTG) Improve LEFS score to at least 70% as measure of improved activity tolerance LTG Duration 09/15/20 Two Impairment gait dysfunction; antalgic Short Term Goal (STG) Patient able to ambulate with FWW with minimal to no limp 200 ft. 08/01/20: post-op patient ambulates independently with FWW but with minimal left knee flexion, holds very stiff. STG Duration 08/14/20 [employer] Goal (LTG) Patient able to ambulate on all usual surfaces with least restrictive device without limp and with normal mechanics . LTG Duration 09/15/20 One Impairment pain left knee limiting function: 5/10 on pain scale Intermediate Goal (LTG) Patient able to do all usual activities with pain no greater than 2/10 LTG Duration 09/15/20 Assessment Summary Assessment Left knee AAROM 6-100 today, increased stiffness, swelling. Recommended she talk with Dr Mohamud Jones today about compression stocking (thigh high), as feel it would improve her swelling and ROM. Patient scar mobility and patellar mobility improved after treatment today, but is definitely limiting her flexion. Trial cryocuff to left knee today at end of treatment to decrease swelling . Physical Therapy Plan Frequency and Duration Frequency of Treatment 12 weeks Duration of Treatment 8 weeks Plan of Care Start Date 07/17/20 Plan of Care End Date 09/15/20 Therapeutic Interventions Therapeutic Interventions Gait Training,Home Exercise Program,Joint Mobilizations, Manual Therapy,Neuromuscular Re-education,Patient/Caregiver Education,Self-Care/Home Management,Soft Tissue Mobilization,Taping, Therapeutic Activities, Therapeutic Exercises Modalities Cold Pack/Ice Massage,Electric Stimulation Next Visit Focus/Plan Next Note Type Treatment Note Next Visit Plan consider use of suction device to increase scar mobility, kinesiotape for swelling reduction if didn't obtain compression stocking, increased contract/relax, soft tissue and joint mobility,
--- NOTE | 2020-09-10 14:16 | PT.OTN ---
Current Diagnoses Bilateral primary osteoarthritis of knee (09/10/20) Difficulty in walking, not elsewhere classified (09/10/20) Weakness (09/10/20) Physical Therapy Treatment Note PT-OP-A Visit Information Start: 07/16/20 13:38 Freq: Status: Active Protocol: Document 09/10/20 08:59 SAK (Rec: 09/10/20 09:45 SAK [id number]) Out-Patient Physical Therapy Visit Information Visit Information Visit Type Treatment Note Visit Start Time 08:59 Visit Stop Time 09:59 Total Visit Minutes 60 Visit Number 13 Number of ROBOTIC WELD TECHNICIAN Visits 0 PT-OP-B Current Condition Start: 07/16/20 13:38 Freq: Status: Active Protocol: Document 07/17/20 09:07 SAK (Rec: 07/17/20 10:06 SAK [id number]) Current Condition History of Current Condition Onset Date years Current Complaints left knee TKA scheduled for 07/24/20 History of Current Condition Long history left knee pain, wasn't approved for TKA until she lost some weight. Now scheduled 07/24/20. States her knee is hard to bend, very painful when bends her leg with walking. Has 3 stairs to enter, no railing but states she will have her son to help. as throw rug at front door and at shower but are nonskid. Lives alone on son's property (3 min away). Has PT scheduled after surgery. Has FWW. Treatment Goals Patient/Caregiver Goals Recover full function of her left knee Prior Functional Status Baseline Function- ADL's Independent Baseline Function- Mobility Independent Baseline Function- Gait no pain or limp Baseline Function- Work/School retired Baseline Function- Recreation/Hobbies limited by pain Current Functional Impairments (Reported) Functional Limitations- ADL's slow and painful Functional Limitations- Mobility/Gait slow and painful, step-to on stairs Functional Limitations- Work/School retired Functional Limitations- Recreation/ limited by pain Hobbies PT-OP-C Subjective Start: 07/16/20 13:38 Freq: Status: Active Protocol: Document 09/10/20 08:59 SAK (Rec: 09/10/20 09:45 SAK [id number]) OP-PT Subjective Patient Comments Patient Comments Patient saw Dr. Jones agreed about the compression stockings. States she has been very busy, hasn't been the best at doing her exercises, been very busy, but did thigh-high compression stockings, called [facility] about doing aquatic exercises exercise in the fitness center ; insurance pays through [employer] type program PT-OP-G Mobility & Gait Start: 07/16/20 13:38 Freq: Status: Active Protocol: Document 07/17/20 09:07 [facility] (Rec: 07/17/20 10:06 [facility] [id number]) OP Mobility Evaluation Transfers Sit to Stand independent with use of UE's OP Gait Assessment Gait Gait Assistance Required: Independent Assistive Devices Assistive Device Front Wheeled Walker Gait Deviations General Gait Pattern Antalgic Stair Climbing Evaluation Evaluation Level of Assist On Stairs Independent Devices Stair Climbing Assistive Devices Left Railing,Right Railing Technique/Endurance Stair Climbing Direction Ascend and Descend Stair Climbing Technique Step to Step PT-OP-K Range of Motion Start: 07/16/20 13:38 Freq: Status: Active Protocol: Document 08/02/20 09:04 [facility] (Rec: 08/02/20 13:00 [facility] [id number]) Knee Goniometric Range of Motion Knee Left Knee ROM WFL No Flexion Active (degrees) 74 Flexion Passive (degrees) 83 Extension Active (degrees) 29 Extension Passive (degrees) 15 PT-OP-M Strength Start: 07/16/20 13:38 Freq: Status: Active Protocol: Document 08/02/20 09:04 [facility] (Rec: 08/02/20 13:00 [facility] [id number]) Knee Strength Knee Manual Muscle Testing Left Flexion (S2) 3- Fair- Extension (L3) 3- Fair- PT-OP-Q Treatments Start: 07/16/20 13:38 Freq: Status: Active Protocol: Document 09/10/20 08:59 [facility] (Rec: 09/10/20 09:45 [facility] [id number]) Cardio Equipment Recumbent Bicycle Duration (Minutes) 10 Resistance 1 Seat Position 8-6 Gym Equipment Shuttle Recovery Unilateral Squats Resistance 37 Shuttle Recovery Platform Stable Reps/Time x10 Bilateral Squats Resistance 62 Shuttle Recovery Platform Stable Reps/Time 2x20 Therapeutic Exercises Supine Exercises Sinan stretch Supine Exercise Name for hip flex, quads Side left Reps/Minutes 2 min Comments active and passive SAQ Side bilateral Equipment Used bolster Reps/Minutes 10x5 Comments manual assist for inc extension Sitting Exercises sit to stand Reps/Minutes 5x Comments emphasis on equal use of LE's Standing Exercises stair lunge Standing Exercise Name end-range stretch Reps/Minutes 10x Comments 2nd of 6 inch stairs HC stretch Equipment Used JULIA Reps/Minutes 2x30 Gait Training Gait Activity stairs Description 6 stairs Device Used prabha railing Level of Assistance SBA, cues Distance/Duration 2X Treatment Focus alternating pattern level surface Device Used SPC Level of Assistance SBA and cues Surface level Distance/Duration 100' Treatment Focus incr knee flexion and extension during swing through heel strike w/gait Manual Therapy Treatment Soft Tissue Mobilization left knee Body Location quads, scar tissue Mobilization Type Instrument Assisted,Myofascial Release,Rolling,Strumming Intensity/Depth Moderate Body Position Hooklying Joint Mobilizations patella Direction med/lat, sup/inf Grade III Body Position Supine Reps/Duration 5 min Manual Techniques contract relax Type to increase knee flexion Reps/Duration 3x 5 Self-Care/Home Management Treatment Education Other Education recommend second pair compression stockings at 20-30 mmhg PT-OP-R Modalities Start: 07/16/20 13:38 Freq: Status: Active Protocol: Document 09/05/20 09:04 [facility] (Rec: 09/05/20 10:17 [facility] [id number]) Hot Pack/Cold Pack Treatment Cold Pack Location L knee Patient Position Hooklying Treatment Duration (minutes) 10 Patient Tolerance Good Comments cryocuff with size G tricofix under PT-OP-T Assessment and Plan Start: 07/16/20 13:38 Freq: Status: Active Protocol: Document 09/10/20 08:59 SAK (Rec: 09/10/20 09:45 [facility] [id number]) Physical Therapy Assessment Goals Four Impairment limited left knee ROM 32-69 actively Short Term Goal (STG) Improve left knee ROM to 10-95 degrees 08/02/20: 26-79 AROM 15-83 PROM 08/13/20: 15-87 deg PROM supine post cryocuff. STG Duration 08/14/20 [facility] Goal (LTG) Improve left knee ROM to 0-120 degrees LTG Duration 09/15/20 Five Impairment strength 3-/5 left knee Short Term Goal (STG) Patient to be independent and compliant with HEPwith HEP STG Duration 08/14/20 Senior Clinical Research Scientist Goal (LTG) Improve left knee strength to 4+/5 LTG Duration 09/15/20 Three Impairment Lower extremity functional scale 45% Short Term Goal (STG) Improve LEFS to 55% STG Duration 08/14/20 Senior Clinical Research Scientist Goal (LTG) Improve LEFS score to at least 70% as measure of improved activity tolerance LTG Duration 09/15/20 Two Impairment gait dysfunction; antalgic Short Term Goal (STG) Patient able to ambulate with FWW with minimal to no limp 200 ft. 08/01/20: post-op patient ambulates independently with FWW but with minimal left knee flexion, holds very stiff. STG Duration 08/14/20 Senior Clinical Research Scientist Goal (LTG) Patient able to ambulate on all usual surfaces with least restrictive device without limp and with normal mechanics . LTG Duration 09/15/20 One Impairment pain left knee limiting function: 5/10 on pain scale Senior Clinical Research Scientist Goal (LTG) Patient able to do all usual activities with pain no greater than 2/10 LTG Duration 09/15/20 Assessment Summary Assessment left knee AAROM 6-108 today, wearing thigh high 18 mmhg anti-embolism stockings; advised that as previously instructed 20-30 mmHg pressure would be more effective. Proximal scar still very adherent and thick. Physical Therapy Plan Frequency and Duration Frequency of Treatment 12 weeks Duration of Treatment 8 weeks Plan of Care Start Date 07/17/20 Plan of Care End Date 09/15/20 Therapeutic Interventions Therapeutic Interventions Gait Training,Home Exercise Program,Joint Mobilizations, Manual Therapy,Neuromuscular Re-education,Patient/Caregiver Education,Self-Care/Home Management,Soft Tissue Mobilization,Taping, Therapeutic Activities, Therapeutic Exercises Modalities Cold Pack/Ice Massage,Electric Stimulation Next Visit Focus/Plan Next Note Type Treatment Note Next Visit Plan Continue TKA rehab, increased time on manual technique.
--- NOTE | 2020-09-13 16:24 | PT.OTN ---
Current Diagnoses Bilateral primary osteoarthritis of knee (09/13/20) Difficulty in walking, not elsewhere classified (09/13/20) Weakness (09/13/20) Physical Therapy Treatment Note PT-OP-A Visit Information Start: 07/16/20 13:38 Freq: Status: Active Protocol: Document 09/13/20 13:02 SAK (Rec: 09/13/20 13:30 SAK [id number]) Out-Patient Physical Therapy Visit Information Visit Information Visit Type Treatment Note Visit Start Time 13:00 Visit Stop Time 13:59 Total Visit Minutes 59 Visit Number 14 Number of DESKTOP PUBLISHING SPECIALIST Visits 0 PT-OP-B Current Condition Start: 07/16/20 13:38 Freq: Status: Active Protocol: Document 07/17/20 09:07 SAK (Rec: 07/17/20 10:06 SAK [id number]) Current Condition History of Current Condition Onset Date years Current Complaints left knee TKA scheduled for 07/24/20 History of Current Condition Long history left knee pain, wasn't approved for TKA until she lost some weight. Now scheduled 07/24/20. States her knee is hard to bend, very painful when bends her leg with walking. Has 3 stairs to enter, no railing but states she will have her son to help. as throw rug at front door and at shower but are nonskid. Lives alone on son's property (3 min away). Has PT scheduled after surgery. Has FWW. Treatment Goals Patient/Caregiver Goals Recover full function of her left knee Prior Functional Status Baseline Function- ADL's Independent Baseline Function- Mobility Independent Baseline Function- Gait no pain or limp Baseline Function- Work/School retired Baseline Function- Recreation/Hobbies limited by pain Current Functional Impairments (Reported) Functional Limitations- ADL's slow and painful Functional Limitations- Mobility/Gait slow and painful, step-to on stairs Functional Limitations- Work/School retired Functional Limitations- Recreation/ limited by pain Hobbies PT-OP-C Subjective Start: 07/16/20 13:38 Freq: Status: Active Protocol: Document 09/13/20 13:02 SAK (Rec: 09/13/20 13:30 SAK [id number]) OP-PT Subjective Patient Comments Patient Comments Hasn't gotten stronger compression stocking, still reporting no pain with walking or exercises, but reports stil lnot doing a lot of exercising, and doesn't push to the point of pain PT-OP-G Mobility & Gait Start: 07/16/20 13:38 Freq: Status: Active Protocol: Document 07/17/20 09:07 [facility] (Rec: 07/17/20 10:06 [facility] [id number]) OP Mobility Evaluation Transfers Sit to Stand independent with use of UE's OP Gait Assessment Gait Gait Assistance Required: Independent Assistive Devices Assistive Device Front Wheeled Walker Gait Deviations General Gait Pattern Antalgic Stair Climbing Evaluation Evaluation Level of Assist On Stairs Independent Devices Stair Climbing Assistive Devices Left Railing,Right Railing Technique/Endurance Stair Climbing Direction Ascend and Descend Stair Climbing Technique Step to Step PT-OP-K Range of Motion Start: 07/16/20 13:38 Freq: Status: Active Protocol: Document 08/02/20 09:04 [facility] (Rec: 08/02/20 13:00 [facility] [id number]) Knee Goniometric Range of Motion Knee Left Knee ROM WFL No Flexion Active (degrees) 74 Flexion Passive (degrees) 83 Extension Active (degrees) 29 Extension Passive (degrees) 15 PT-OP-M Strength Start: 07/16/20 13:38 Freq: Status: Active Protocol: Document 08/02/20 09:04 [facility] (Rec: 08/02/20 13:00 [facility] [id number]) Knee Strength Knee Manual Muscle Testing Left Flexion (S2) 3- Fair- Extension (L3) 3- Fair- PT-OP-Q Treatments Start: 07/16/20 13:38 Freq: Status: Active Protocol: Document 09/13/20 13:02 [facility] (Rec: 09/13/20 13:30 [facility] [id number]) Cardio Equipment Recumbent Bicycle Duration (Minutes) 10 Resistance 1 Seat Position 7-5 Gym Equipment Shuttle Recovery Unilateral Squats Resistance 37 Shuttle Recovery Platform Stable Reps/Time x10 Bilateral Squats Resistance 62 Shuttle Recovery Platform Stable Reps/Time 2x20 Therapeutic Exercises Supine Exercises Sinan stretch Supine Exercise Name for hip flex, quads Side left Reps/Minutes 2 min Comments active and passive gravity assisted knee flex Side left Resistance AROM Reps/Minutes x10 Comments while on shuttle leg press using slider sheet, added to HEP SAQ Side bilateral Equipment Used bolster Reps/Minutes 10x5 Comments manual assist for inc extension Sitting Exercises knee flex Resistance L1 TB Reps/Minutes 10x2 LAQ Side bilateral Reps/Minutes 10x2 Standing Exercises HC stretch Equipment Used JULIA Reps/Minutes 2x30 Manual Therapy Treatment Soft Tissue Mobilization left knee Body Location quads, scar tissue Mobilization Type Instrument Assisted,Myofascial Release,Rolling,Strumming Intensity/Depth Moderate Body Position Hooklying Joint Mobilizations patella Direction med/lat, sup/inf Grade III Body Position Supine Reps/Duration 5 min PT-OP-R Modalities Start: 07/16/20 13:38 Freq: Status: Active Protocol: Document 09/13/20 13:02 SAK (Rec: 09/13/20 16:24 SAK [id number]) Hot Pack/Cold Pack Treatment Cold Pack Location L knee Patient Position Hooklying Treatment Duration (minutes) 10 Patient Tolerance Good Comments ice pack PT-OP-T Assessment and Plan Start: 07/16/20 13:38 Freq: Status: Active Protocol: Document 09/13/20 13:02 SAK (Rec: 09/13/20 13:30 SAK [id number]) Physical Therapy Assessment Goals Four Impairment limited left knee ROM 32-69 actively Short Term Goal (STG) Improve left knee ROM to 10-95 degrees 08/02/20: 26-79 AROM 15-83 PROM 08/13/20: 15-87 deg PROM supine post cryocuff. STG Duration 08/14/20 Pre Billing Specialist Goal (LTG) Improve left knee ROM to 0-120 degrees LTG Duration 09/15/20 Five Impairment strength 3-/5 left knee Short Term Goal (STG) Patient to be independent and compliant with HEPwith HEP STG Duration 08/14/20 Pre Billing Specialist Goal (LTG) Improve left knee strength to 4+/5 LTG Duration 09/15/20 Three Impairment Lower extremity functional scale 45% Short Term Goal (STG) Improve LEFS to 55% STG Duration 08/14/20 Alf Goal (LTG) Improve LEFS score to at least 70% as measure of improved activity tolerance LTG Duration 09/15/20 Two Impairment gait dysfunction; antalgic Short Term Goal (STG) Patient able to ambulate with FWW with minimal to no limp 200 ft. 08/01/20: post-op patient ambulates independently with FWW but with minimal left knee flexion, holds very stiff. STG Duration 08/14/20 Alf Goal (LTG) Patient able to ambulate on all usual surfaces with least restrictive device without limp and with normal mechanics . LTG Duration 09/15/20 One Impairment pain left knee limiting function: 5/10 on pain scale Alf Goal (LTG) Patient able to do all usual activities with pain no greater than 2/10 LTG Duration 09/15/20 Assessment Summary Assessment left knee AAROM: 4-113 , AROM 6-109, good progress. Less swelling with use of compression stockings and improved scar mobility Physical Therapy Plan Frequency and Duration Frequency of Treatment 12 weeks Duration of Treatment 8 weeks Plan of Care Start Date 07/17/20 Plan of Care End Date 09/15/20 Therapeutic Interventions Therapeutic Interventions Gait Training,Home Exercise Program,Joint Mobilizations, Manual Therapy,Neuromuscular Re-education,Patient/Caregiver Education,Self-Care/Home Management,Soft Tissue Mobilization,Taping, Therapeutic Activities, Therapeutic Exercises Modalities Cold Pack/Ice Massage,Electric Stimulation Next Visit Focus/Plan Next Note Type Treatment Note Next Visit Plan Progress as tolerated with knee ROM and strengthening, gait training with continued emphasis on increased knee flexion during swing phase of gait
--- NOTE | 2020-09-18 16:13 | PT.OTRE ---
Current Diagnoses Bilateral primary osteoarthritis of knee (09/18/20) Difficulty in walking, not elsewhere classified (09/18/20) Weakness (09/18/20) Past Medical History (Last Reviewed 07/25/20 @ 13:10 by Claude Bailon PA-C) 1+ pitting edema Arthritis Bilateral knee pain 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) Essential hypertension Excessive daytime sleepiness (~2008) Generalized osteoarthritis GERD without esophagitis Intentional weight loss Intentional weight loss Mixed hyperlipidemia Morbid obesity with BMI of 40.0-44.9, adult Nocturnal hypoxemia Obstructive sleep apnea of adult (~2008) Other pulmonary embolism with acute cor pulmonale Primary osteoarthritis of left knee Pulmonary emboli (~2007) Seasonal allergies Stasis dermatitis Venous insufficiency Surgical History (Last Reviewed 07/25/20 @ 13:10 by Claude Bailon PA-C) H/O bilateral cataract extraction History of cholecystectomy History of salpingo-oophorectomy Visit Care Team Role Provider Type Sriram Badillo MD Family Provider Physician Primary Care Provider Specialty: Internal Medicine Address: [address] [place] [address], [id number] Email: [email or web address] Jones MD Attending Provider Physician Referring Provider Specialty: Orthopedic Surgery Address: [address] [place] [address], [id number] Email: [email or web address] Physical Therapy Re-Evaluation PT-OP-A Visit Information Start: 07/16/20 13:38 Freq: Status: Active Protocol: Document 09/18/20 12:58 SAK (Rec: 09/18/20 13:46 SAK [id number]) Out-Patient Physical Therapy Visit Information Visit Information Visit Type Treatment Note Visit Start Time 13:00 Visit Stop Time 13:59 Total Visit Minutes 59 Visit Number 15 Number of FONDANT PUFF MAKER Visits 0 PT-OP-B Current Condition Start: 07/16/20 13:38 Freq: Status: Active Protocol: Document 07/17/20 09:07 SAK (Rec: 07/17/20 10:06 SAK [id number]) Current Condition History of Current Condition Onset Date years Current Complaints left knee TKA scheduled for 07/24/20 History of Current Condition Long history left knee pain, wasn't approved for TKA until she lost some weight. Now scheduled 07/24/20. States her knee is hard to bend, very painful when bends her leg with walking. Has 3 stairs to enter, no railing but states she will have her son to help. as throw rug at front door and at shower but are nonskid. Lives alone on son's property (3 min away). Has PT scheduled after surgery. Has FWW. Treatment Goals Patient/Caregiver Goals Recover full function of her left knee Prior Functional Status Baseline Function- ADL's Independent Baseline Function- Mobility Independent Baseline Function- Gait no pain or limp Baseline Function- Work/School retired Baseline Function- Recreation/Hobbies limited by pain Current Functional Impairments (Reported) Functional Limitations- ADL's slow and painful Functional Limitations- Mobility/Gait slow and painful, step-to on stairs Functional Limitations- Work/School retired Functional Limitations- Recreation/ limited by pain Hobbies PT-OP-C Subjective Start: 07/16/20 13:38 Freq: Status: Active Protocol: Document 09/18/20 12:58 [facility] (Rec: 09/18/20 13:46 [facility] [id number]) OP-PT Subjective Patient Comments Patient Comments Patient reports she took a long walk a couple days ago, no pain, minimal use of trekking poles PT-OP-G Mobility & Gait Start: 07/16/20 13:38 Freq: Status: Active Protocol: Document 07/17/20 09:07 [facility] (Rec: 07/17/20 10:06 [facility] [id number]) OP Mobility Evaluation Transfers Sit to Stand independent with use of UE's OP Gait Assessment Gait Gait Assistance Required: Independent Assistive Devices Assistive Device Front Wheeled Walker Gait Deviations General Gait Pattern Antalgic Stair Climbing Evaluation Evaluation Level of Assist On Stairs Independent Devices Stair Climbing Assistive Devices Left Railing,Right Railing Technique/Endurance Stair Climbing Direction Ascend and Descend Stair Climbing Technique Step to Step PT-OP-K Range of Motion Start: 07/16/20 13:38 Freq: Status: Active Protocol: Document 08/02/20 09:04 SAK (Rec: 08/02/20 13:00 [facility] [id number]) Knee Goniometric Range of Motion Knee Measured in Degrees Left Knee ROM WFL No Flexion Active (degrees) 74 Flexion Passive (degrees) 83 Extension Active (degrees) 29 Extension Passive (degrees) 15 PT-OP-M Strength Start: 07/16/20 13:38 Freq: Status: Active Protocol: Document 08/02/20 09:04 [facility] (Rec: 08/02/20 13:00 [facility] [id number]) Knee Strength Knee Manual Muscle Testing Left Flexion (S2) 3- Fair- Extension (L3) 3- Fair- PT-OP-Q Treatments Start: 07/16/20 13:38 Freq: Status: Active Protocol: Document 09/18/20 12:58 [facility] (Rec: 09/18/20 13:46 [facility] [id number]) Cardio Equipment Recumbent Bicycle Duration (Minutes) 10 Resistance 1 Seat Position 7-5 Gym Equipment Shuttle Recovery Unilateral Squats Resistance 37 Shuttle Recovery Platform Stable Reps/Time 2x10 Bilateral Squats Resistance 62 Shuttle Recovery Platform Stable Reps/Time 3x10 Therapeutic Exercises Supine Exercises Sinan stretch Supine Exercise Name for hip flex, quads Side left Reps/Minutes 2 min Comments active and passive gravity assisted knee flex Side left Resistance AROM Reps/Minutes x10 Comments while on shuttle leg press using slider sheet, added to HEP Sitting Exercises knee flex Resistance L1 TB Reps/Minutes 10x2 Standing Exercises HC stretch Equipment Used JULIA Reps/Minutes 2x30 Gait Training Gait Activity stairs Description 4 stairs, 6 stairs Device Used prabha railing Level of Assistance SBA, cues Distance/Duration 1x,3X Treatment Focus alternating pattern Manual Therapy Treatment Soft Tissue Mobilization left knee Body Location quads, scar tissue Mobilization Type Instrument Assisted,Myofascial Release,Rolling,Strumming Intensity/Depth Deep Body Position Hooklying Comments Patient instructed to increase the depth of self-massage at home. Joint Mobilizations patella Direction sup/inf Grade III Body Position Supine Reps/Duration 2 min PT-OP-R Modalities Start: 07/16/20 13:38 Freq: Status: Active Protocol: Document 09/18/20 12:58 [facility] (Rec: 09/18/20 13:46 [facility] [id number]) Hot Pack/Cold Pack Treatment Cold Pack Location L knee Patient Position Hooklying Treatment Duration (minutes) 10 Patient Tolerance Good Comments ice pack PT-OP-T Assessment and Plan Start: 07/16/20 13:38 Freq: Status: Active Protocol: Document 09/18/20 12:58 SAK (Rec: 09/18/20 13:46 SAK [id number]) Physical Therapy Assessment Goals Four Impairment limited left knee ROM 32-69 actively Short Term Goal (STG) Improve left knee ROM to 10-95 degrees 08/02/20: 26-79 AROM 15-83 PROM 08/13/20: 15-87 deg PROM supine post cryocuff. 09/18/20: goal met STG Duration goal met Mcc Goal (LTG) Improve left knee AROM to 0- 120 degrees 09/18/20: AROM 6-109, AAROM 4- 114 LTG Duration 10/18/20 Five Impairment strength 3-/5 left knee Short Term Goal (STG) Patient to be independent and compliant with HEP 09/18/20: goal progress, patient continues to report doing some of the exercises, busy with caregiving for ceasar and tends to focus more on walking than flexibility or strengthening Mcc Goal (LTG) Improve left knee strength to 4+/5 09/18/20: goal progress 4-/5 within vailable ROM LTG Duration 10/18/20 Three Impairment Lower extremity functional scale 45% Short Term Goal (STG) Improve LEFS to 55% 09/18/20: LEFS 56% STG Duration goal met Mcc Goal (LTG) Improve LEFS score to at least 70% as measure of improved activity tolerance LTG Duration 10/18/20 Two Impairment gait dysfunction; antalgic Short Term Goal (STG) Patient able to ambulate with FWW with minimal to no limp 200 ft. 08/01/20: post-op patient ambulates independently with FWW but with minimal left knee flexion, holds very stiff. 09/18/20: goal met, patient ambulates with straight cane with mild compensation STG Duration goal met Mcc Goal (LTG) Patient able to ambulate on all usual surfaces with least restrictive device without limp and with normal mechanics . 09/18/20: patient ambulates on level surfaces without limp but with decreased left knee flexion LTG Duration 10/18/20 One Impairment pain left knee limiting function: 5/10 on pain scale Hide Splitter Goal (LTG) Patient able to do all usual activities with pain no greater than 2/10 09/18/20: good goal progress, patient reports no pain with ambulation, improved sleep. Most pain with flexibility exercises. LTG Duration 10/18/20 Assessment Summary Assessment Good functional progress, improved bend of knee during gait though still somewhat stiff. AROM 6-109, AAROM 4- 114. Scar mobility some improved, patient encouraged to increase depth of self- massage, increase emphasis on flexibility as she continues to report walking a lot but less focus on her HEP. Able to ambulate without pain. Recommend continued PT 1 further month to progress to full active knee ROM of 0-120, and help her achieve all functional goals as above. Physical Therapy Plan Frequency and Duration Frequency of Treatment 2x/2k Duration of Treatment 4 weeks Plan of Care Start Date 09/18/20 Plan of Care End Date 10/18/20 Therapeutic Interventions Therapeutic Interventions Gait Training,Home Exercise Program,Joint Mobilizations, Manual Therapy,Neuromuscular Re-education,Patient/Caregiver Education,Self-Care/Home Management,Soft Tissue Mobilization,Taping, Therapeutic Activities, Therapeutic Exercises Modalities Cold Pack/Ice Massage,Electric Stimulation Next Visit Focus/Plan Next Note Type Treatment Note Next Visit Plan Continue progressive knee ROM and strengthening, gait training on uneven surfaces.
--- NOTE | 2020-09-18 16:13 | PT.OPPOC ---
Physical, Occupational & Speech Therapy At [facility] Current Diagnoses Bilateral primary osteoarthritis of knee (09/18/20) Difficulty in walking, not elsewhere classified (09/18/20) Weakness (09/18/20) Visit Care Team Role Provider Type Sriram Badillo MD Family Provider Physician Primary Care Provider Specialty: Internal Medicine Address: [address] [place] [address], [address] Email: [email or web address] Aisha Jones MD Attending Provider Physician Referring Provider Specialty: Orthopedic Surgery Address: [address] [place] [address], [id number] Email: [email or web address] Plan Of Care PT-OP-T Assessment and Plan Start: 07/16/20 13:38 Freq: Status: Active Protocol: Document 09/18/20 12:58 SAK (Rec: 09/18/20 13:46 SAK [id number]) Physical Therapy Assessment Goals Four Impairment limited left knee ROM 32-69 actively Short Term Goal (STG) Improve left knee ROM to 10-95 degrees 08/02/20: 26-79 AROM 15-83 PROM 08/13/20: 15-87 deg PROM supine post cryocuff. 09/18/20: goal met STG Duration goal met Concrete Pipe Maker Goal (LTG) Improve left knee AROM to 0- 120 degrees 09/18/20: AROM 6-109, AAROM 4- 114 LTG Duration 10/18/20 Five Impairment strength 3-/5 left knee Short Term Goal (STG) Patient to be independent and compliant with HEP 09/18/20: goal progress, patient continues to report doing some of the exercises, busy with caregiving for ceasar and tends to focus more on walking than flexibility or strengthening Correction Goal (LTG) Improve left knee strength to 4+/5 09/18/20: goal progress 4-/5 within vailable ROM LTG Duration 10/18/20 Three Impairment Lower extremity functional scale 45% Short Term Goal (STG) Improve LEFS to 55% 09/18/20: LEFS 56% STG Duration goal met Correction Goal (LTG) Improve LEFS score to at least 70% as measure of improved activity tolerance LTG Duration 10/18/20 Two Impairment gait dysfunction; antalgic Short Term Goal (STG) Patient able to ambulate with FWW with minimal to no limp 200 ft. 08/01/20: post-op patient ambulates independently with FWW but with minimal left knee flexion, holds very stiff. 09/18/20: goal met, patient ambulates with straight cane with mild compensation STG Duration goal met Concrete Pipe Maker Goal (LTG) Patient able to ambulate on all usual surfaces with least restrictive device without limp and with normal mechanics . 09/18/20: patient ambulates on level surfaces without limp but with decreased left knee flexion LTG Duration 10/18/20 One Impairment pain left knee limiting function: 5/10 on pain scale Correction Goal (LTG) Patient able to do all usual activities with pain no greater than 2/10 09/18/20: good goal progress, patient reports no pain with ambulation, improved sleep. Most pain with flexibility exercises. LTG Duration 10/18/20 Assessment Summary Assessment Good functional progress, improved bend of knee during gait though still somewhat stiff. AROM 6-109, AAROM 4- 114. Scar mobility some improved, patient encouraged to increase depth of self- massage, increase emphasis on flexibility as she continues to report walking a lot but less focus on her HEP. Able to ambulate without pain. Recommend continued PT 1 further month to progress to full active knee ROM of 0-120, and help her achieve all functional goals as above. Physical Therapy Plan Frequency and Duration Frequency of Treatment 2x/2k Duration of Treatment 4 weeks Plan of Care Start Date 09/18/20 Plan of Care End Date 10/18/20 Therapeutic Interventions Therapeutic Interventions Gait Training,Home Exercise Program,Joint Mobilizations, Manual Therapy,Neuromuscular Re-education,Patient/Caregiver Education,Self-Care/Home Management,Soft Tissue Mobilization,Taping, Therapeutic Activities, Therapeutic Exercises Modalities Cold Pack/Ice Massage,Electric Stimulation Next Visit Focus/Plan Next Note Type Treatment Note Next Visit Plan Continue progressive knee ROM and strengthening, gait training on uneven surfaces. Plan of Care Dates Plan of Care Start Date 09/18/20 Plan of Care End Date 10/18/20 Electronically Signed by: Nissa Sanchez, PT 09/18/20 [id number] Please Sign and Return: I have reviewed this Plan of Care and certify that the skilled therapy services above are required to meet the patient?s needs. Physician Signature Date Printed Name and Credentials Clinical Instructor Signature Printed Name and Credentials
--- NOTE | 2020-09-20 17:18 | PT.OTN ---
Current Diagnoses Bilateral primary osteoarthritis of knee (09/20/20) Difficulty in walking, not elsewhere classified (09/20/20) Weakness (09/20/20) Physical Therapy Treatment Note PT-OP-A Visit Information Start: 07/16/20 13:38 Freq: Status: Active Protocol: Document 09/20/20 13:05 SAK (Rec: 09/20/20 13:44 SAK [id number]) Out-Patient Physical Therapy Visit Information Visit Information Visit Type Treatment Note Visit Start Time 13:00 Visit Stop Time 13:55 Total Visit Minutes 55 Visit Number 16 Number of ESTATE CONSERVATOR Visits 0 PT-OP-B Current Condition Start: 07/16/20 13:38 Freq: Status: Active Protocol: Document 07/17/20 09:07 SAK (Rec: 07/17/20 10:06 SAK [id number]) Current Condition History of Current Condition Onset Date years Current Complaints left knee TKA scheduled for 07/24/20 History of Current Condition Long history left knee pain, wasn't approved for TKA until she lost some weight. Now scheduled 07/24/20. States her knee is hard to bend, very painful when bends her leg with walking. Has 3 stairs to enter, no railing but states she will have her son to help. as throw rug at front door and at shower but are nonskid. Lives alone on son's property (3 min away). Has PT scheduled after surgery. Has FWW. Treatment Goals Patient/Caregiver Goals Recover full function of her left knee Prior Functional Status Baseline Function- ADL's Independent Baseline Function- Mobility Independent Baseline Function- Gait no pain or limp Baseline Function- Work/School retired Baseline Function- Recreation/Hobbies limited by pain Current Functional Impairments (Reported) Functional Limitations- ADL's slow and painful Functional Limitations- Mobility/Gait slow and painful, step-to on stairs Functional Limitations- Work/School retired Functional Limitations- Recreation/ limited by pain Hobbies PT-OP-C Subjective Start: 07/16/20 13:38 Freq: Status: Active Protocol: Document 09/20/20 13:05 SAK (Rec: 09/20/20 13:44 SAK [id number]) OP-PT Subjective Patient Comments Patient Comments States right LE hurting more than left, not sure why. PT-OP-G Mobility & Gait Start: 07/16/20 13:38 Freq: Status: Active Protocol: Document 07/17/20 09:07 [facility] (Rec: 07/17/20 10:06 [facility] [id number]) OP Mobility Evaluation Transfers Sit to Stand independent with use of UE's OP Gait Assessment Gait Gait Assistance Required: Independent Assistive Devices Assistive Device Front Wheeled Walker Gait Deviations General Gait Pattern Antalgic Stair Climbing Evaluation Evaluation Level of Assist On Stairs Independent Devices Stair Climbing Assistive Devices Left Railing,Right Railing Technique/Endurance Stair Climbing Direction Ascend and Descend Stair Climbing Technique Step to Step PT-OP-K Range of Motion Start: 07/16/20 13:38 Freq: Status: Active Protocol: Document 08/02/20 09:04 [facility] (Rec: 08/02/20 13:00 [facility] [id number]) Knee Goniometric Range of Motion Knee Left Knee ROM WFL No Flexion Active (degrees) 74 Flexion Passive (degrees) 83 Extension Active (degrees) 29 Extension Passive (degrees) 15 PT-OP-M Strength Start: 07/16/20 13:38 Freq: Status: Active Protocol: Document 08/02/20 09:04 [facility] (Rec: 08/02/20 13:00 [facility] [id number]) Knee Strength Knee Manual Muscle Testing Left Flexion (S2) 3- Fair- Extension (L3) 3- Fair- PT-OP-Q Treatments Start: 07/16/20 13:38 Freq: Status: Active Protocol: Document 09/20/20 13:05 [facility] (Rec: 09/20/20 13:44 [facility] [id number]) Cardio Equipment Recumbent Bicycle Duration (Minutes) 10 Resistance 3 Seat Position 5-4 Gym Equipment Shuttle Recovery Unilateral Squats Resistance 37 Shuttle Recovery Platform Stable Reps/Time 2x10 Bilateral Squats Resistance 75 Shuttle Recovery Platform Stable Reps/Time 3x10 Therapeutic Exercises Supine Exercises gravity assisted knee flex Side left Resistance AROM Reps/Minutes x10 Comments while on shuttle leg press using slider sheet, added to HEP Sitting Exercises sit to stand Reps/Minutes 5x Comments emphasis on equal use of LE's knee flex Resistance L2 TB Reps/Minutes 10x2 LAQ Side bilateral Reps/Minutes 10x2 Standing Exercises quad stretch Reps/Minutes 30 x 1 stair lunge Standing Exercise Name end-range stretch Reps/Minutes 10x Comments 2nd of 6 inch stairs HC stretch Equipment Used JULIA Reps/Minutes 2x30 Gait Training Gait Activity stairs Description 4 stairs, 6 stairs Device Used prabha railing Level of Assistance SBA, cues Distance/Duration 1x,3X Treatment Focus alternating pattern Manual Therapy Treatment Soft Tissue Mobilization left knee Body Location quads, scar tissue Mobilization Type Instrument Assisted,Myofascial Release,Rolling,Strumming Intensity/Depth Deep Body Position Hooklying Joint Mobilizations patella Direction sup/inf Grade III Body Position Supine Reps/Duration 2 min Self-Care/Home Management Treatment Education Patient Education Home Exercise Program,Pain Management Other Education importance of not favoring left LE especially with sit to stand as often observed unless cued PT-OP-R Modalities Start: 07/16/20 13:38 Freq: Status: Active Protocol: Document 09/20/20 13:05 [facility] (Rec: 09/20/20 13:44 [facility] [id number]) Hot Pack/Cold Pack Treatment Cold Pack Location L knee Patient Position Hooklying Treatment Duration (minutes) 10 Patient Tolerance Good Comments ice pack PT-OP-T Assessment and Plan Start: 07/16/20 13:38 Freq: Status: Active Protocol: Document 09/20/20 13:05 [facility] (Rec: 09/20/20 13:44 [facility] [id number]) Physical Therapy Assessment Goals Four Impairment limited left knee ROM 32-69 actively Short Term Goal (STG) Improve left knee ROM to 10-95 degrees 08/02/20: 26-79 AROM 15-83 PROM 08/13/20: 15-87 deg PROM supine post cryocuff. 09/18/20: goal met STG Duration goal met Mcfp Goal (LTG) Improve left knee AROM to 0- 120 degrees 09/18/20: AROM 6-109, AAROM 4- 114 LTG Duration 10/18/20 Five Impairment strength 3-/5 left knee Short Term Goal (STG) Patient to be independent and compliant with HEP 09/18/20: goal progress, patient continues to report doing some of the exercises, busy with caregiving for ceasar and tends to focus more on walking than flexibility or strengthening Cotton Classer Goal (LTG) Improve left knee strength to 4+/5 09/18/20: goal progress 4-/5 within vailable ROM LTG Duration 10/18/20 Three Impairment Lower extremity functional scale 45% Short Term Goal (STG) Improve LEFS to 55% 09/18/20: LEFS 56% STG Duration goal met Cotton Classer Goal (LTG) Improve LEFS score to at least 70% as measure of improved activity tolerance LTG Duration 10/18/20 Two Impairment gait dysfunction; antalgic Short Term Goal (STG) Patient able to ambulate with FWW with minimal to no limp 200 ft. 08/01/20: post-op patient ambulates independently with FWW but with minimal left knee flexion, holds very stiff. 09/18/20: goal met, patient ambulates with straight cane with mild compensation STG Duration goal met Mcfp Goal (LTG) Patient able to ambulate on all usual surfaces with least restrictive device without limp and with normal mechanics . 09/18/20: patient ambulates on level surfaces without limp but with decreased left knee flexion LTG Duration 10/18/20 One Impairment pain left knee limiting function: 5/10 on pain scale Mcfp Goal (LTG) Patient able to do all usual activities with pain no greater than 2/10 09/18/20: good goal progress, patient reports no pain with ambulation, improved sleep. Most pain with flexibility exercises. LTG Duration 10/18/20 Assessment Summary Assessment Continue cues for decreased compensation with sit to stand , improved with practice though habit is to decrease weight-bearing left; feel that is cause of right knee increased soreness AROM 5-108 , AAROM 3-115. Physical Therapy Plan Frequency and Duration Frequency of Treatment 2x/2k Duration of Treatment 4 weeks Plan of Care Start Date 09/18/20 Plan of Care End Date 10/18/20 Therapeutic Interventions Therapeutic Interventions Gait Training,Home Exercise Program,Joint Mobilizations, Manual Therapy,Neuromuscular Re-education,Patient/Caregiver Education,Self-Care/Home Management,Soft Tissue Mobilization,Taping, Therapeutic Activities, Therapeutic Exercises Modalities Cold Pack/Ice Massage,Electric Stimulation Next Visit Focus/Plan Next Note Type Treatment Note Next Visit Plan Continue progressive knee ROM and strengthening, gait training on uneven surfaces.
--- NOTE | 2020-09-24 16:53 | PT.OTN ---
Current Diagnoses Bilateral primary osteoarthritis of knee (09/24/20) Difficulty in walking, not elsewhere classified (09/24/20) Weakness (09/24/20) Physical Therapy Treatment Note PT-OP-A Visit Information Start: 07/16/20 13:38 Freq: Status: Active Protocol: Document 09/24/20 16:07 MA (Rec: 09/24/20 16:53 MA [id number]) Out-Patient Physical Therapy Visit Information Visit Information Visit Type Treatment Note Visit Start Time 16:00 Visit Stop Time 16:45 Total Visit Minutes 45 Visit Number 17 Number of VIBRATION ENGINEER Visits 1 PT-OP-B Current Condition Start: 07/16/20 13:38 Freq: Status: Active Protocol: Document 07/17/20 09:07 SAK (Rec: 07/17/20 10:06 SAK [id number]) Current Condition History of Current Condition Onset Date years Current Complaints left knee TKA scheduled for 07/24/20 History of Current Condition Long history left knee pain, wasn't approved for TKA until she lost some weight. Now scheduled 07/24/20. States her knee is hard to bend, very painful when bends her leg with walking. Has 3 stairs to enter, no railing but states she will have her son to help. as throw rug at front door and at shower but are nonskid. Lives alone on son's property (3 min away). Has PT scheduled after surgery. Has FWW. Treatment Goals Patient/Caregiver Goals Recover full function of her left knee Prior Functional Status Baseline Function- ADL's Independent Baseline Function- Mobility Independent Baseline Function- Gait no pain or limp Baseline Function- Work/School retired Baseline Function- Recreation/Hobbies limited by pain Current Functional Impairments (Reported) Functional Limitations- ADL's slow and painful Functional Limitations- Mobility/Gait slow and painful, step-to on stairs Functional Limitations- Work/School retired Functional Limitations- Recreation/ limited by pain Hobbies PT-OP-C Subjective Start: 07/16/20 13:38 Freq: Status: Active Protocol: Document 09/24/20 16:07 MA (Rec: 09/24/20 16:53 MA [id number]) OP-PT Subjective Patient Comments Patient Comments I haven;t had therapy for almost a week and my band broke when I tried pulling my knee back with it attached to my bed. PT-OP-G Mobility & Gait Start: 07/16/20 13:38 Freq: Status: Active Protocol: Document 07/17/20 09:07 SAK (Rec: 07/17/20 10:06 SAK [id number]) OP Mobility Evaluation Transfers Sit to Stand independent with use of UE's OP Gait Assessment Gait Gait Assistance Required: Independent Assistive Devices Assistive Device Front Wheeled Walker Gait Deviations General Gait Pattern Antalgic Stair Climbing Evaluation Evaluation Level of Assist On Stairs Independent Devices Stair Climbing Assistive Devices Left Railing,Right Railing Technique/Endurance Stair Climbing Direction Ascend and Descend Stair Climbing Technique Step to Step PT-OP-K Range of Motion Start: 07/16/20 13:38 Freq: Status: Active Protocol: Document 08/02/20 09:04 SAK (Rec: 08/02/20 13:00 SAK [id number]) Knee Goniometric Range of Motion Knee Left Knee ROM WFL No Flexion Active (degrees) 74 Flexion Passive (degrees) 83 Extension Active (degrees) 29 Extension Passive (degrees) 15 PT-OP-M Strength Start: 07/16/20 13:38 Freq: Status: Active Protocol: Document 08/02/20 09:04 [facility] (Rec: 08/02/20 13:00 [facility] [id number]) Knee Strength Knee Manual Muscle Testing Left Flexion (S2) 3- Fair- Extension (L3) 3- Fair- PT-OP-Q Treatments Start: 07/16/20 13:38 Freq: Status: Active Protocol: Document 09/24/20 16:07 MA (Rec: 09/24/20 16:53 MA [id number]) Cardio Equipment Recumbent Bicycle Duration (Minutes) 10 Resistance 3 Seat Position 5-4 Gym Equipment Shuttle Recovery Bilateral Squats Resistance 75 Shuttle Recovery Platform Stable Reps/Time 3x10 Therapeutic Exercises Sitting Exercises sit to stand Reps/Minutes 5x2 Comments emphasis on equal use of LE's knee flex Resistance L2 TB Reps/Minutes 10x2 LAQ Side bilateral Reps/Minutes 10x2 Standing Exercises HC stretch Equipment Used JULIA Reps/Minutes 2x30 Manual Therapy Treatment Soft Tissue Mobilization left knee Body Location quads, scar tissue Mobilization Type Instrument Assisted,Myofascial Release,Rolling,Strumming Intensity/Depth Deep Body Position Hooklying PT-OP-R Modalities Start: 07/16/20 13:38 Freq: Status: Active Protocol: Document 09/20/20 13:05 SAK (Rec: 09/20/20 13:44 SAK [id number]) Hot Pack/Cold Pack Treatment Cold Pack Location L knee Patient Position Hooklying Treatment Duration (minutes) 10 Patient Tolerance Good Comments ice pack PT-OP-T Assessment and Plan Start: 07/16/20 13:38 Freq: Status: Active Protocol: Document 09/24/20 16:07 MA (Rec: 09/24/20 16:53 MA [id number]) Physical Therapy Assessment Goals Four Impairment limited left knee ROM 32-69 actively Short Term Goal (STG) Improve left knee ROM to 10-95 degrees 08/02/20: 26-79 AROM 15-83 PROM 08/13/20: 15-87 deg PROM supine post cryocuff. 09/18/20: goal met STG Duration goal met Longterm Goal (LTG) Improve left knee AROM to 0- 120 degrees 09/18/20: AROM 6-109, AAROM 4- 114 LTG Duration 10/18/20 Five Impairment strength 3-/5 left knee Short Term Goal (STG) Patient to be independent and compliant with HEP 09/18/20: goal progress, patient continues to report doing some of the exercises, busy with caregiving for ceasar and tends to focus more on walking than flexibility or strengthening Longterm Goal (LTG) Improve left knee strength to 4+/5 09/18/20: goal progress 4-/5 within vailable ROM LTG Duration 10/18/20 Three Impairment Lower extremity functional scale 45% Short Term Goal (STG) Improve LEFS to 55% 09/18/20: LEFS 56% STG Duration goal met Longterm Goal (LTG) Improve LEFS score to at least 70% as measure of improved activity tolerance LTG Duration 10/18/20 Two Impairment gait dysfunction; antalgic Short Term Goal (STG) Patient able to ambulate with FWW with minimal to no limp 200 ft. 08/01/20: post-op patient ambulates independently with FWW but with minimal left knee flexion, holds very stiff. 09/18/20: goal met, patient ambulates with straight cane with mild compensation STG Duration goal met Longterm Goal (LTG) Patient able to ambulate on all usual surfaces with least restrictive device without limp and with normal mechanics . 09/18/20: patient ambulates on level surfaces without limp but with decreased left knee flexion LTG Duration 10/18/20 One Impairment pain left knee limiting function: 5/10 on pain scale Desktop Support Engineer Goal (LTG) Patient able to do all usual activities with pain no greater than 2/10 09/18/20: good goal progress, patient reports no pain with ambulation, improved sleep. Most pain with flexibility exercises. LTG Duration 10/18/20 Assessment Summary Assessment Pt did better with not compensating during sit<> stands today. She needed cues to avoid compensating by hiking L hip on recum. bike. AAROM 112 Physical Therapy Plan Frequency and Duration Frequency of Treatment 2x/2k Duration of Treatment 4 weeks Plan of Care Start Date 09/18/20 Plan of Care End Date 10/18/20 Therapeutic Interventions Therapeutic Interventions Gait Training,Home Exercise Program,Joint Mobilizations, Manual Therapy,Neuromuscular Re-education,Patient/Caregiver Education,Self-Care/Home Management,Soft Tissue Mobilization,Taping, Therapeutic Activities, Therapeutic Exercises Modalities Cold Pack/Ice Massage,Electric Stimulation Next Visit Focus/Plan Next Note Type Treatment Note Next Visit Plan Continue progressive knee ROM and strengthening, gait training on uneven surfaces.
--- NOTE | 2020-10-01 16:10 | PT.OTN ---
Current Diagnoses Bilateral primary osteoarthritis of knee (10/01/20) Difficulty in walking, not elsewhere classified (10/01/20) Weakness (10/01/20) Physical Therapy Treatment Note PT-OP-A Visit Information Start: 07/16/20 13:38 Freq: Status: Active Protocol: Document 10/01/20 14:04 MA (Rec: 10/01/20 14:32 MA [id number]) Out-Patient Physical Therapy Visit Information Visit Information Visit Type Treatment Note Visit Note pt was late to session Visit Start Time 14:00 Visit Stop Time 14:40 Total Visit Minutes 30 Visit Number 18 Number of CLINICAL RESEARCH SPEC Visits 2 PT-OP-B Current Condition Start: 07/16/20 13:38 Freq: Status: Active Protocol: Document 07/17/20 09:07 SAK (Rec: 07/17/20 10:06 SAK [id number]) Current Condition History of Current Condition Onset Date years Current Complaints left knee TKA scheduled for 07/24/20 History of Current Condition Long history left knee pain, wasn't approved for TKA until she lost some weight. Now scheduled 07/24/20. States her knee is hard to bend, very painful when bends her leg with walking. Has 3 stairs to enter, no railing but states she will have her son to help. as throw rug at front door and at shower but are nonskid. Lives alone on son's property (3 min away). Has PT scheduled after surgery. Has FWW. Treatment Goals Patient/Caregiver Goals Recover full function of her left knee Prior Functional Status Baseline Function- ADL's Independent Baseline Function- Mobility Independent Baseline Function- Gait no pain or limp Baseline Function- Work/School retired Baseline Function- Recreation/Hobbies limited by pain Current Functional Impairments (Reported) Functional Limitations- ADL's slow and painful Functional Limitations- Mobility/Gait slow and painful, step-to on stairs Functional Limitations- Work/School retired Functional Limitations- Recreation/ limited by pain Hobbies PT-OP-C Subjective Start: 07/16/20 13:38 Freq: Status: Active Protocol: Document 10/01/20 14:04 MA (Rec: 10/01/20 14:32 MA [id number]) OP-PT Subjective Patient Comments Patient Comments Pt states I was sitting in my car. I thought my appt started at 1:00. I haven't been here in awhile but I have been walking around my son's 5 acre property without any AD since I saw you last. PT-OP-G Mobility & Gait Start: 07/16/20 13:38 Freq: Status: Active Protocol: Document 07/17/20 09:07 [facility] (Rec: 07/17/20 10:06 [facility] [id number]) OP Mobility Evaluation Transfers Sit to Stand independent with use of UE's OP Gait Assessment Gait Gait Assistance Required: Independent Assistive Devices Assistive Device Front Wheeled Walker Gait Deviations General Gait Pattern Antalgic Stair Climbing Evaluation Evaluation Level of Assist On Stairs Independent Devices Stair Climbing Assistive Devices Left Railing,Right Railing Technique/Endurance Stair Climbing Direction Ascend and Descend Stair Climbing Technique Step to Step PT-OP-K Range of Motion Start: 07/16/20 13:38 Freq: Status: Active Protocol: Document 08/02/20 09:04 [facility] (Rec: 08/02/20 13:00 [facility] [id number]) Knee Goniometric Range of Motion Knee Left Knee ROM WFL No Flexion Active (degrees) 74 Flexion Passive (degrees) 83 Extension Active (degrees) 29 Extension Passive (degrees) 15 PT-OP-M Strength Start: 07/16/20 13:38 Freq: Status: Active Protocol: Document 08/02/20 09:04 [facility] (Rec: 08/02/20 13:00 [facility] [id number]) Knee Strength Knee Manual Muscle Testing Left Flexion (S2) 3- Fair- Extension (L3) 3- Fair- PT-OP-Q Treatments Start: 07/16/20 13:38 Freq: Status: Active Protocol: Document 10/01/20 14:04 MA (Rec: 10/01/20 14:32 MA [id number]) Cardio Equipment Recumbent Bicycle Duration (Minutes) 10 Resistance 4 Seat Position 5-4 Other 5 for 5 min, 4 for 5 min Gym Equipment Shuttle Recovery Unilateral Squats Resistance 37 Shuttle Recovery Platform Stable Reps/Time 2x10 Bilateral Squats Resistance 75 Shuttle Recovery Platform Stable Reps/Time 2x15 PT-OP-R Modalities Start: 07/16/20 13:38 Freq: Status: Active Protocol: Document 10/01/20 14:04 MA (Rec: 10/01/20 14:32 MA [id number]) Hot Pack/Cold Pack Treatment Cold Pack Location L knee Patient Position Hooklying Treatment Duration (minutes) 10 Patient Tolerance Good Comments ice pack PT-OP-T Assessment and Plan Start: 07/16/20 13:38 Freq: Status: Active Protocol: Document 10/01/20 14:04 MA (Rec: 10/01/20 14:32 MA [id number]) Physical Therapy Assessment Goals Four Impairment limited left knee ROM 32-69 actively Short Term Goal (STG) Improve left knee ROM to 10-95 degrees 08/02/20: 26-79 AROM 15-83 PROM 08/13/20: 15-87 deg PROM supine post cryocuff. 09/18/20: goal met STG Duration goal met Jail Goal (LTG) Improve left knee AROM to 0- 120 degrees 09/18/20: AROM 6-109, AAROM 4- 114 LTG Duration 10/18/20 Five Impairment strength 3-/5 left knee Short Term Goal (STG) Patient to be independent and compliant with HEP 09/18/20: goal progress, patient continues to report doing some of the exercises, busy with caregiving for ceasar and tends to focus more on walking than flexibility or strengthening Windows Server Administrator Goal (LTG) Improve left knee strength to 4+/5 09/18/20: goal progress 4-/5 within vailable ROM LTG Duration 10/18/20 Three Impairment Lower extremity functional scale 45% Short Term Goal (STG) Improve LEFS to 55% 09/18/20: LEFS 56% STG Duration goal met Windows Server Administrator Goal (LTG) Improve LEFS score to at least 70% as measure of improved activity tolerance LTG Duration 10/18/20 Two Impairment gait dysfunction; antalgic Short Term Goal (STG) Patient able to ambulate with FWW with minimal to no limp 200 ft. 08/01/20: post-op patient ambulates independently with FWW but with minimal left knee flexion, holds very stiff. 09/18/20: goal met, patient ambulates with straight cane with mild compensation STG Duration goal met Jail Goal (LTG) Patient able to ambulate on all usual surfaces with least restrictive device without limp and with normal mechanics . 09/18/20: patient ambulates on level surfaces without limp but with decreased left knee flexion LTG Duration 10/18/20 One Impairment pain left knee limiting function: 5/10 on pain scale Jail Goal (LTG) Patient able to do all usual activities with pain no greater than 2/10 09/18/20: good goal progress, patient reports no pain with ambulation, improved sleep. Most pain with flexibility exercises. LTG Duration 10/18/20 Assessment Summary Assessment Pt arrived 15 minutes late to session today. She was able to scoot the chair internal combustion engine assembler the bike to get increased knee flexion after first 5 minutes. Pt is doing well with SL press on leg press and does not need to have stopper set to limit knee flexion. AAROM 108 today Physical Therapy Plan Frequency and Duration Frequency of Treatment 2x/2k Duration of Treatment 4 weeks Plan of Care Start Date 09/18/20 Plan of Care End Date 10/18/20 Therapeutic Interventions Therapeutic Interventions Gait Training,Home Exercise Program,Joint Mobilizations, Manual Therapy,Neuromuscular Re-education,Patient/Caregiver Education,Self-Care/Home Management,Soft Tissue Mobilization,Taping, Therapeutic Activities, Therapeutic Exercises Modalities Cold Pack/Ice Massage,Electric Stimulation Next Visit Focus/Plan Next Note Type Treatment Note Next Visit Plan Continue progressive knee ROM and strengthening, gait training on uneven surfaces.
--- NOTE | 2020-10-04 16:45 | PT.OTN ---
Current Diagnoses Bilateral primary osteoarthritis of knee (10/03/20) Difficulty in walking, not elsewhere classified (10/03/20) Weakness (10/03/20) Physical Therapy Treatment Note PT-OP-A Visit Information Start: 07/16/20 13:38 Freq: Status: Active Protocol: Document 10/03/20 14:34 SAK (Rec: 10/03/20 15:14 SAK [id number]) Out-Patient Physical Therapy Visit Information Visit Information Visit Type Treatment Note Visit Start Time 14:30 Visit Stop Time 15:25 Total Visit Minutes 55 Visit Number 19 Number of PREPARATION ROOM MANAGER Visits 2 PT-OP-B Current Condition Start: 07/16/20 13:38 Freq: Status: Active Protocol: Document 07/17/20 09:07 SAK (Rec: 07/17/20 10:06 SAK [id number]) Current Condition History of Current Condition Onset Date years Current Complaints left knee TKA scheduled for 07/24/20 History of Current Condition Long history left knee pain, wasn't approved for TKA until she lost some weight. Now scheduled 07/24/20. States her knee is hard to bend, very painful when bends her leg with walking. Has 3 stairs to enter, no railing but states she will have her son to help. as throw rug at front door and at shower but are nonskid. Lives alone on son's property (3 min away). Has PT scheduled after surgery. Has FWW. Treatment Goals Patient/Caregiver Goals Recover full function of her left knee Prior Functional Status Baseline Function- ADL's Independent Baseline Function- Mobility Independent Baseline Function- Gait no pain or limp Baseline Function- Work/School retired Baseline Function- Recreation/Hobbies limited by pain Current Functional Impairments (Reported) Functional Limitations- ADL's slow and painful Functional Limitations- Mobility/Gait slow and painful, step-to on stairs Functional Limitations- Work/School retired Functional Limitations- Recreation/ limited by pain Hobbies PT-OP-C Subjective Start: 07/16/20 13:38 Freq: Status: Active Protocol: Document 10/03/20 14:34 SAK (Rec: 10/03/20 15:14 SAK [id number]) OP-PT Subjective Patient Comments Patient Comments Apologizes for being late last time. Compliance to HEP variable due to taking care of granddaughter every day. PT-OP-G Mobility & Gait Start: 07/16/20 13:38 Freq: Status: Active Protocol: Document 07/17/20 09:07 [facility] (Rec: 07/17/20 10:06 [facility] [id number]) OP Mobility Evaluation Transfers Sit to Stand independent with use of UE's OP Gait Assessment Gait Gait Assistance Required: Independent Assistive Devices Assistive Device Front Wheeled Walker Gait Deviations General Gait Pattern Antalgic Stair Climbing Evaluation Evaluation Level of Assist On Stairs Independent Devices Stair Climbing Assistive Devices Left Railing,Right Railing Technique/Endurance Stair Climbing Direction Ascend and Descend Stair Climbing Technique Step to Step PT-OP-K Range of Motion Start: 07/16/20 13:38 Freq: Status: Active Protocol: Document 08/02/20 09:04 [facility] (Rec: 08/02/20 13:00 [facility] [id number]) Knee Goniometric Range of Motion Knee Left Knee ROM WFL No Flexion Active (degrees) 74 Flexion Passive (degrees) 83 Extension Active (degrees) 29 Extension Passive (degrees) 15 PT-OP-M Strength Start: 07/16/20 13:38 Freq: Status: Active Protocol: Document 08/02/20 09:04 [facility] (Rec: 08/02/20 13:00 [facility] [id number]) Knee Strength Knee Manual Muscle Testing Left Flexion (S2) 3- Fair- Extension (L3) 3- Fair- PT-OP-Q Treatments Start: 07/16/20 13:38 Freq: Status: Active Protocol: Document 10/03/20 14:34 [facility] (Rec: 10/03/20 15:14 [facility] [id number]) Cardio Equipment Recumbent Bicycle Duration (Minutes) 10 Resistance 4 Seat Position 5-4 Other 5 for 5 min, 4 for 5 min Gym Equipment Shuttle Recovery Unilateral Squats Resistance 37 Shuttle Recovery Platform Stable Reps/Time 2x10 Bilateral Squats Resistance 75 Shuttle Recovery Platform Stable Reps/Time 2x15 Therapeutic Exercises Sitting Exercises chair scoot Reps/Minutes 5x Standing Exercises HS stretch Equipment Used stair Reps/Minutes 30 x 2 stair lunge Standing Exercise Name end-range stretch Reps/Minutes 10x Comments 2nd of 6 inch stairs Manual Therapy Treatment Soft Tissue Mobilization left knee Body Location quads, scar tissue Mobilization Type Instrument Assisted,Myofascial Release,Rolling,Strumming Intensity/Depth Deep Body Position Hooklying PT-OP-R Modalities Start: 07/16/20 13:38 Freq: Status: Active Protocol: Document 10/03/20 14:34 SAK (Rec: 10/03/20 15:14 SAK [id number]) Hot Pack/Cold Pack Treatment Cold Pack Location L knee Patient Position Hooklying Treatment Duration (minutes) 10 Patient Tolerance Good Comments ice pack PT-OP-T Assessment and Plan Start: 07/16/20 13:38 Freq: Status: Active Protocol: Document 10/03/20 14:34 SAK (Rec: 10/03/20 15:14 SAK [id number]) Physical Therapy Assessment Goals Four Impairment limited left knee ROM 32-69 actively Short Term Goal (STG) Improve left knee ROM to 10-95 degrees 08/02/20: 26-79 AROM 15-83 PROM 08/13/20: 15-87 deg PROM supine post cryocuff. 09/18/20: goal met STG Duration goal met Fpc Goal (LTG) Improve left knee AROM to 0- 120 degrees 09/18/20: AROM 6-109, AAROM 4- 114 LTG Duration 10/18/20 Five Impairment strength 3-/5 left knee Short Term Goal (STG) Patient to be independent and compliant with HEP 09/18/20: goal progress, patient continues to report doing some of the exercises, busy with caregiving for ceasar and tends to focus more on walking than flexibility or strengthening [employer] Goal (LTG) Improve left knee strength to 4+/5 09/18/20: goal progress 4-/5 within vailable ROM LTG Duration 10/18/20 Three Impairment Lower extremity functional scale 45% Short Term Goal (STG) Improve LEFS to 55% 09/18/20: LEFS 56% STG Duration goal met Fpc Goal (LTG) Improve LEFS score to at least 70% as measure of improved activity tolerance LTG Duration 10/18/20 Two Impairment gait dysfunction; antalgic Short Term Goal (STG) Patient able to ambulate with FWW with minimal to no limp 200 ft. 08/01/20: post-op patient ambulates independently with FWW but with minimal left knee flexion, holds very stiff. 09/18/20: goal met, patient ambulates with straight cane with mild compensation STG Duration goal met Fpc Goal (LTG) Patient able to ambulate on all usual surfaces with least restrictive device without limp and with normal mechanics . 09/18/20: patient ambulates on level surfaces without limp but with decreased left knee flexion LTG Duration 10/18/20 One Impairment pain left knee limiting function: 5/10 on pain scale Fpc Goal (LTG) Patient able to do all usual activities with pain no greater than 2/10 09/18/20: good goal progress, patient reports no pain with ambulation, improved sleep. Most pain with flexibility exercises. LTG Duration 10/18/20 Assessment Summary Assessment Left knee AAROM 5- 110 today. Encouraged resume chair scoot and supine knee flexion stretching exercises. Physical Therapy Plan Frequency and Duration Frequency of Treatment 2x/2k Duration of Treatment 4 weeks Plan of Care Start Date 09/18/20 Plan of Care End Date 10/18/20 Therapeutic Interventions Therapeutic Interventions Gait Training,Home Exercise Program,Joint Mobilizations, Manual Therapy,Neuromuscular Re-education,Patient/Caregiver Education,Self-Care/Home Management,Soft Tissue Mobilization,Taping, Therapeutic Activities, Therapeutic Exercises Modalities Cold Pack/Ice Massage,Electric Stimulation Next Visit Focus/Plan Next Note Type Treatment Note Next Visit Plan Emphasis on ROM, manual techniques to improve joint mobility, gait on uneven surfaces
--- NOTE | 2020-10-09 13:00 | PT.OPPN ---
Current Diagnoses Bilateral primary osteoarthritis of knee (10/11/20) Difficulty in walking, not elsewhere classified (10/11/20) Weakness (10/11/20) Physical Therapy Progress Note PT-OP-A Visit Information Start: 07/16/20 13:38 Freq: Status: Active Protocol: Document 10/09/20 12:58 SAK (Rec: 10/09/20 13:44 SAK [id number]) Out-Patient Physical Therapy Visit Information Visit Information Visit Type Treatment Note Visit Start Time 13:00 Visit Stop Time 13:55 Total Visit Minutes 55 Visit Number 20 Number of FINAL INSPECTOR BALANCE WHEEL Visits 0 PT-OP-B Current Condition Start: 07/16/20 13:38 Freq: Status: Active Protocol: Document 07/17/20 09:07 SAK (Rec: 07/17/20 10:06 SAK [id number]) Current Condition History of Current Condition Onset Date years Current Complaints left knee TKA scheduled for 07/24/20 History of Current Condition Long history left knee pain, wasn't approved for TKA until she lost some weight. Now scheduled 07/24/20. States her knee is hard to bend, very painful when bends her leg with walking. Has 3 stairs to enter, no railing but states she will have her son to help. as throw rug at front door and at shower but are nonskid. Lives alone on son's property (3 min away). Has PT scheduled after surgery. Has FWW. Treatment Goals Patient/Caregiver Goals Recover full function of her left knee Prior Functional Status Baseline Function- ADL's Independent Baseline Function- Mobility Independent Baseline Function- Gait no pain or limp Baseline Function- Work/School retired Baseline Function- Recreation/Hobbies limited by pain Current Functional Impairments (Reported) Functional Limitations- ADL's slow and painful Functional Limitations- Mobility/Gait slow and painful, step-to on stairs Functional Limitations- Work/School retired Functional Limitations- Recreation/ limited by pain Hobbies PT-OP-C Subjective Start: 07/16/20 13:38 Freq: Status: Active Protocol: Document 10/09/20 12:58 SAK (Rec: 10/09/20 13:44 SAK [id number]) OP-PT Subjective Patient Comments Patient Comments No new c/o, very busy. Walking all over the place, still needs railing for stairs . PT-OP-G Mobility & Gait Start: 07/16/20 13:38 Freq: Status: Active Protocol: Document 07/17/20 09:07 SAK (Rec: 07/17/20 10:06 [facility] [id number]) OP Mobility Evaluation Transfers Sit to Stand independent with use of UE's OP Gait Assessment Gait Gait Assistance Required: Independent Assistive Devices Assistive Device Front Wheeled Walker Gait Deviations General Gait Pattern Antalgic Stair Climbing Evaluation Evaluation Level of Assist On Stairs Independent Devices Stair Climbing Assistive Devices Left Railing,Right Railing Technique/Endurance Stair Climbing Direction Ascend and Descend Stair Climbing Technique Step to Step PT-OP-K Range of Motion Start: 07/16/20 13:38 Freq: Status: Active Protocol: Document 08/02/20 09:04 [facility] (Rec: 08/02/20 13:00 [facility] [id number]) Knee Goniometric Range of Motion Knee Measured in Degrees Left Knee ROM WFL No Flexion Active (degrees) 74 Flexion Passive (degrees) 83 Extension Active (degrees) 29 Extension Passive (degrees) 15 PT-OP-M Strength Start: 07/16/20 13:38 Freq: Status: Active Protocol: Document 08/02/20 09:04 [facility] (Rec: 08/02/20 13:00 [facility] [id number]) Knee Strength Knee Manual Muscle Testing Left Flexion (S2) 3- Fair- Extension (L3) 3- Fair- PT-OP-T Assessment and Plan Start: 07/16/20 13:38 Freq: Status: Active Protocol: Document 10/09/20 12:58 [facility] (Rec: 10/09/20 13:44 [facility] [id number]) Physical Therapy Assessment Goals Four Impairment limited left knee ROM 32-69 actively Short Term Goal (STG) Improve left knee ROM to 10-95 degrees 08/02/20: 26-79 AROM 15-83 PROM 08/13/20: 15-87 deg PROM supine post cryocuff. 09/18/20: goal met STG Duration goal met Prison Goal (LTG) Improve left knee AROM to 0- 120 degrees 09/18/20: AROM 6-109, AAROM 4- 114 LTG Duration 10/18/20 Five Impairment strength 3-/5 left knee Short Term Goal (STG) Patient to be independent and compliant with HEP 09/18/20: goal progress, patient continues to report doing some of the exercises, busy with caregiving for ceasar and tends to focus more on walking than flexibility or strengthening Vision Impaired Teacher Goal (LTG) Improve left knee strength to 4+/5 09/18/20: goal progress 4-/5 within vailable ROM LTG Duration 10/18/20 Three Impairment Lower extremity functional scale 45% Short Term Goal (STG) Improve LEFS to 55% 09/18/20: LEFS 56% STG Duration goal met Prison Goal (LTG) Improve LEFS score to at least 70% as measure of improved activity tolerance LTG Duration 10/18/20 Two Impairment gait dysfunction; antalgic Short Term Goal (STG) Patient able to ambulate with FWW with minimal to no limp 200 ft. 08/01/20: post-op patient ambulates independently with FWW but with minimal left knee flexion, holds very stiff. 09/18/20: goal met, patient ambulates with straight cane with mild compensation STG Duration goal met Prison Goal (LTG) Patient able to ambulate on all usual surfaces with least restrictive device without limp and with normal mechanics . 09/18/20: patient ambulates on level surfaces without limp but with decreased left knee flexion LTG Duration 10/18/20 One Impairment pain left knee limiting function: 5/10 on pain scale Vision Impaired Teacher Goal (LTG) Patient able to do all usual activities with pain no greater than 2/10 09/18/20: good goal progress, patient reports no pain with ambulation, improved sleep. Most pain with flexibility exercises. LTG Duration 10/18/20 Assessment Summary Assessment Gait quality much improved with increased natural knee flexion, less compensation. Improving sit to stand, still mild compensation, but able to perform sit to stand from standard height chair with knees flexed equally, min compensation. Flexion increased to 114 degrees today . Passeive extension 0 degrees , active 2. Physical Therapy Plan Frequency and Duration Frequency of Treatment 2x/2k Duration of Treatment 4 weeks Plan of Care Start Date 09/18/20 Plan of Care End Date 10/18/20 Therapeutic Interventions Therapeutic Interventions Gait Training,Home Exercise Program,Joint Mobilizations, Manual Therapy,Neuromuscular Re-education,Patient/Caregiver Education,Self-Care/Home Management,Soft Tissue Mobilization,Taping, Therapeutic Activities, Therapeutic Exercises Modalities Cold Pack/Ice Massage,Electric Stimulation Next Visit Focus/Plan Next Note Type Re-Evaluation Next Visit Plan Continue TKA rehab, working toward 120 degrees flexion, continued strengthening.
--- NOTE | 2020-10-09 13:45 | PT.OTN ---
Current Diagnoses Bilateral primary osteoarthritis of knee (10/09/20) Difficulty in walking, not elsewhere classified (10/09/20) Weakness (10/09/20) Physical Therapy Treatment Note PT-OP-A Visit Information Start: 07/16/20 13:38 Freq: Status: Active Protocol: Document 10/09/20 12:58 SAK (Rec: 10/09/20 13:44 SAK [id number]) Out-Patient Physical Therapy Visit Information Visit Information Visit Type Treatment Note Visit Start Time 13:00 Visit Stop Time 13:55 Total Visit Minutes 55 Visit Number 20 Number of QUILL FIXER Visits 0 PT-OP-B Current Condition Start: 07/16/20 13:38 Freq: Status: Active Protocol: Document 07/17/20 09:07 SAK (Rec: 07/17/20 10:06 SAK [id number]) Current Condition History of Current Condition Onset Date years Current Complaints left knee TKA scheduled for 07/24/20 History of Current Condition Long history left knee pain, wasn't approved for TKA until she lost some weight. Now scheduled 07/24/20. States her knee is hard to bend, very painful when bends her leg with walking. Has 3 stairs to enter, no railing but states she will have her son to help. as throw rug at front door and at shower but are nonskid. Lives alone on son's property (3 min away). Has PT scheduled after surgery. Has FWW. Treatment Goals Patient/Caregiver Goals Recover full function of her left knee Prior Functional Status Baseline Function- ADL's Independent Baseline Function- Mobility Independent Baseline Function- Gait no pain or limp Baseline Function- Work/School retired Baseline Function- Recreation/Hobbies limited by pain Current Functional Impairments (Reported) Functional Limitations- ADL's slow and painful Functional Limitations- Mobility/Gait slow and painful, step-to on stairs Functional Limitations- Work/School retired Functional Limitations- Recreation/ limited by pain Hobbies PT-OP-C Subjective Start: 07/16/20 13:38 Freq: Status: Active Protocol: Document 10/09/20 12:58 SAK (Rec: 10/09/20 13:44 SAK [id number]) OP-PT Subjective Patient Comments Patient Comments No new c/o, very busy. Walking all over the place, still needs railing for stairs . PT-OP-G Mobility & Gait Start: 07/16/20 13:38 Freq: Status: Active Protocol: Document 07/17/20 09:07 [facility] (Rec: 07/17/20 10:06 [facility] [id number]) OP Mobility Evaluation Transfers Sit to Stand independent with use of UE's OP Gait Assessment Gait Gait Assistance Required: Independent Assistive Devices Assistive Device Front Wheeled Walker Gait Deviations General Gait Pattern Antalgic Stair Climbing Evaluation Evaluation Level of Assist On Stairs Independent Devices Stair Climbing Assistive Devices Left Railing,Right Railing Technique/Endurance Stair Climbing Direction Ascend and Descend Stair Climbing Technique Step to Step PT-OP-K Range of Motion Start: 07/16/20 13:38 Freq: Status: Active Protocol: Document 08/02/20 09:04 [facility] (Rec: 08/02/20 13:00 [facility] [id number]) Knee Goniometric Range of Motion Knee Left Knee ROM WFL No Flexion Active (degrees) 74 Flexion Passive (degrees) 83 Extension Active (degrees) 29 Extension Passive (degrees) 15 PT-OP-M Strength Start: 07/16/20 13:38 Freq: Status: Active Protocol: Document 08/02/20 09:04 [facility] (Rec: 08/02/20 13:00 [facility] [id number]) Knee Strength Knee Manual Muscle Testing Left Flexion (S2) 3- Fair- Extension (L3) 3- Fair- PT-OP-Q Treatments Start: 07/16/20 13:38 Freq: Status: Active Protocol: Document 10/09/20 12:58 [facility] (Rec: 10/09/20 13:44 [facility] [id number]) Cardio Equipment Recumbent Bicycle Duration (Minutes) 10 Resistance 4 Seat Position 5-4 Other 5 for 5 min, 4 for 5 min Therapeutic Exercises Standing Exercises stair lunge Standing Exercise Name end-range stretch Reps/Minutes 10x Comments 2nd of 6 inch stairs Gait Training Gait Activity stairs Description 4 stairs, 6 stairs Device Used prabha railing Level of Assistance SBA, cues Distance/Duration 1x,3X Treatment Focus alternating pattern Manual Therapy Treatment Soft Tissue Mobilization left knee Body Location quads, scar tissue, distal hamstrings Mobilization Type Instrument Assisted,Myofascial Release,Rolling,Strumming Intensity/Depth Deep Body Position Hooklying Joint Mobilizations patella Direction sup/inf, med/lat Grade III Body Position Supine Reps/Duration 5 min PT-OP-R Modalities Start: 07/16/20 13:38 Freq: Status: Active Protocol: Document 10/09/20 12:58 [facility] (Rec: 10/09/20 13:44 [facility] [id number]) Hot Pack/Cold Pack Treatment Cold Pack Location L knee Patient Position Hooklying Treatment Duration (minutes) 10 Patient Tolerance Good Comments ice pack PT-OP-T Assessment and Plan Start: 07/16/20 13:38 Freq: Status: Active Protocol: Document 10/09/20 12:58 [facility] (Rec: 10/09/20 13:44 [facility] [id number]) Physical Therapy Assessment Goals Four Impairment limited left knee ROM 32-69 actively Short Term Goal (STG) Improve left knee ROM to 10-95 degrees 08/02/20: 26-79 AROM 15-83 PROM 08/13/20: 15-87 deg PROM supine post cryocuff. 09/18/20: goal met STG Duration goal met Pitching Coach Goal (LTG) Improve left knee AROM to 0- 120 degrees 09/18/20: AROM 6-109, AAROM 4- 114 LTG Duration 10/18/20 Five Impairment strength 3-/5 left knee Short Term Goal (STG) Patient to be independent and compliant with HEP 09/18/20: goal progress, patient continues to report doing some of the exercises, busy with caregiving for ceasar and tends to focus more on walking than flexibility or strengthening Retirement Goal (LTG) Improve left knee strength to 4+/5 09/18/20: goal progress 4-/5 within vailable ROM LTG Duration 10/18/20 Three Impairment Lower extremity functional scale 45% Short Term Goal (STG) Improve LEFS to 55% 09/18/20: LEFS 56% STG Duration goal met Retirement Goal (LTG) Improve LEFS score to at least 70% as measure of improved activity tolerance LTG Duration 10/18/20 Two Impairment gait dysfunction; antalgic Short Term Goal (STG) Patient able to ambulate with FWW with minimal to no limp 200 ft. 08/01/20: post-op patient ambulates independently with FWW but with minimal left knee flexion, holds very stiff. 09/18/20: goal met, patient ambulates with straight cane with mild compensation STG Duration goal met Pitching Coach Goal (LTG) Patient able to ambulate on all usual surfaces with least restrictive device without limp and with normal mechanics . 09/18/20: patient ambulates on level surfaces without limp but with decreased left knee flexion LTG Duration 10/18/20 One Impairment pain left knee limiting function: 5/10 on pain scale Retirement Goal (LTG) Patient able to do all usual activities with pain no greater than 2/10 09/18/20: good goal progress, patient reports no pain with ambulation, improved sleep. Most pain with flexibility exercises. LTG Duration 10/18/20 Assessment Summary Assessment Gait quality much improved with increased natural knee flexion, less compensation. Improving sit to stand, still mild compensation, but able to perform sit to stand from standard height chair with knees flexed equally, min compensation. Flexion increased to 114 degrees today . Passeive extension 0 degrees , active 2. Physical Therapy Plan Frequency and Duration Frequency of Treatment 2x/2k Duration of Treatment 4 weeks Plan of Care Start Date 09/18/20 Plan of Care End Date 10/18/20 Therapeutic Interventions Therapeutic Interventions Gait Training,Home Exercise Program,Joint Mobilizations, Manual Therapy,Neuromuscular Re-education,Patient/Caregiver Education,Self-Care/Home Management,Soft Tissue Mobilization,Taping, Therapeutic Activities, Therapeutic Exercises Modalities Cold Pack/Ice Massage,Electric Stimulation Next Visit Focus/Plan Next Note Type Re-Evaluation Next Visit Plan Continue TKA rehab, working toward 120 degrees flexion, continued strengthening.
--- NOTE | 2020-10-11 13:42 | PT.OTN ---
Current Diagnoses Bilateral primary osteoarthritis of knee (10/11/20) Difficulty in walking, not elsewhere classified (10/11/20) Weakness (10/11/20) Physical Therapy Treatment Note PT-OP-A Visit Information Start: 07/16/20 13:38 Freq: Status: Active Protocol: Document 10/11/20 12:59 SAK (Rec: 10/11/20 13:42 SAK [id number]) Out-Patient Physical Therapy Visit Information Visit Information Visit Type Treatment Note Visit Start Time 13:00 Visit Stop Time 13:55 Total Visit Minutes 55 Visit Number 21 Number of ACADEMIC AFFAIRS MANAGER Visits 0 PT-OP-B Current Condition Start: 07/16/20 13:38 Freq: Status: Active Protocol: Document 07/17/20 09:07 SAK (Rec: 07/17/20 10:06 SAK [id number]) Current Condition History of Current Condition Onset Date years Current Complaints left knee TKA scheduled for 07/24/20 History of Current Condition Long history left knee pain, wasn't approved for TKA until she lost some weight. Now scheduled 07/24/20. States her knee is hard to bend, very painful when bends her leg with walking. Has 3 stairs to enter, no railing but states she will have her son to help. as throw rug at front door and at shower but are nonskid. Lives alone on son's property (3 min away). Has PT scheduled after surgery. Has FWW. Treatment Goals Patient/Caregiver Goals Recover full function of her left knee Prior Functional Status Baseline Function- ADL's Independent Baseline Function- Mobility Independent Baseline Function- Gait no pain or limp Baseline Function- Work/School retired Baseline Function- Recreation/Hobbies limited by pain Current Functional Impairments (Reported) Functional Limitations- ADL's slow and painful Functional Limitations- Mobility/Gait slow and painful, step-to on stairs Functional Limitations- Work/School retired Functional Limitations- Recreation/ limited by pain Hobbies PT-OP-C Subjective Start: 07/16/20 13:38 Freq: Status: Active Protocol: Document 10/11/20 12:59 SAK (Rec: 10/11/20 13:42 SAK [id number]) OP-PT Subjective Patient Comments Patient Comments Tired, very busy. Ok after last session. PT-OP-G Mobility & Gait Start: 07/16/20 13:38 Freq: Status: Active Protocol: Document 07/17/20 09:07 [facility] (Rec: 07/17/20 10:06 [facility] [id number]) OP Mobility Evaluation Transfers Sit to Stand independent with use of UE's OP Gait Assessment Gait Gait Assistance Required: Independent Assistive Devices Assistive Device Front Wheeled Walker Gait Deviations General Gait Pattern Antalgic Stair Climbing Evaluation Evaluation Level of Assist On Stairs Independent Devices Stair Climbing Assistive Devices Left Railing,Right Railing Technique/Endurance Stair Climbing Direction Ascend and Descend Stair Climbing Technique Step to Step PT-OP-K Range of Motion Start: 07/16/20 13:38 Freq: Status: Active Protocol: Document 08/02/20 09:04 [facility] (Rec: 08/02/20 13:00 [facility] [id number]) Knee Goniometric Range of Motion Knee Left Knee ROM WFL No Flexion Active (degrees) 74 Flexion Passive (degrees) 83 Extension Active (degrees) 29 Extension Passive (degrees) 15 PT-OP-M Strength Start: 07/16/20 13:38 Freq: Status: Active Protocol: Document 08/02/20 09:04 [facility] (Rec: 08/02/20 13:00 [facility] [id number]) Knee Strength Knee Manual Muscle Testing Left Flexion (S2) 3- Fair- Extension (L3) 3- Fair- PT-OP-Q Treatments Start: 07/16/20 13:38 Freq: Status: Active Protocol: Document 10/11/20 12:59 [facility] (Rec: 10/11/20 13:42 [facility] [id number]) Cardio Equipment Recumbent Bicycle Duration (Minutes) 10 Resistance 5 Seat Position 5-4 Other 5 for 5 min, 4 for 5 min Gym Equipment Shuttle Recovery Unilateral Squats Resistance 50 Shuttle Recovery Platform Stable Reps/Time 2x10 Bilateral Squats Resistance 75 Shuttle Recovery Platform Stable Reps/Time 2x15 Therapeutic Exercises Standing Exercises stair lunge Standing Exercise Name end-range stretch Reps/Minutes 10x Comments 2nd of 6 inch stairs Gait Training Gait Activity stairs Description 4 stairs, 6 stairs Device Used prabha railing Level of Assistance SBA, cues Distance/Duration 1x,3X Treatment Focus alternating pattern Manual Therapy Treatment Soft Tissue Mobilization left knee Body Location quads, scar tissue, distal hamstrings Mobilization Type Instrument Assisted,Myofascial Release,Rolling,Strumming Intensity/Depth Deep Body Position Hooklying Joint Mobilizations patella Direction sup/inf, med/lat Grade III Body Position Supine Reps/Duration 5 min PT-OP-R Modalities Start: 07/16/20 13:38 Freq: Status: Active Protocol: Document 10/11/20 12:59 SAK (Rec: 10/11/20 13:42 SAK [id number]) Hot Pack/Cold Pack Treatment Cold Pack Location L knee Patient Position Hooklying Treatment Duration (minutes) 10 Patient Tolerance Good Comments ice pack PT-OP-T Assessment and Plan Start: 07/16/20 13:38 Freq: Status: Active Protocol: Document 10/11/20 12:59 SAK (Rec: 10/11/20 13:42 SAK [id number]) Physical Therapy Assessment Goals Four Impairment limited left knee ROM 32-69 actively Short Term Goal (STG) Improve left knee ROM to 10-95 degrees 08/02/20: 26-79 AROM 15-83 PROM 08/13/20: 15-87 deg PROM supine post cryocuff. 09/18/20: goal met STG Duration goal met Glass Blowing Lathe Operator Goal (LTG) Improve left knee AROM to 0- 120 degrees 09/18/20: AROM 6-109, AAROM 4- 114 LTG Duration 10/18/20 Five Impairment strength 3-/5 left knee Short Term Goal (STG) Patient to be independent and compliant with HEP 09/18/20: goal progress, patient continues to report doing some of the exercises, busy with caregiving for ceasar and tends to focus more on walking than flexibility or strengthening Glass Blowing Lathe Operator Goal (LTG) Improve left knee strength to 4+/5 09/18/20: goal progress 4-/5 within vailable ROM LTG Duration 10/18/20 Three Impairment Lower extremity functional scale 45% Short Term Goal (STG) Improve LEFS to 55% 09/18/20: LEFS 56% STG Duration goal met Glass Blowing Lathe Operator Goal (LTG) Improve LEFS score to at least 70% as measure of improved activity tolerance LTG Duration 10/18/20 Two Impairment gait dysfunction; antalgic Short Term Goal (STG) Patient able to ambulate with FWW with minimal to no limp 200 ft. 08/01/20: post-op patient ambulates independently with FWW but with minimal left knee flexion, holds very stiff. 09/18/20: goal met, patient ambulates with straight cane with mild compensation STG Duration goal met Glass Blowing Lathe Operator Goal (LTG) Patient able to ambulate on all usual surfaces with least restrictive device without limp and with normal mechanics . 09/18/20: patient ambulates on level surfaces without limp but with decreased left knee flexion LTG Duration 10/18/20 One Impairment pain left knee limiting function: 5/10 on pain scale Skilled Nursing Goal (LTG) Patient able to do all usual activities with pain no greater than 2/10 09/18/20: good goal progress, patient reports no pain with ambulation, improved sleep. Most pain with flexibility exercises. LTG Duration 10/18/20 Assessment Summary Assessment left knee AAROM 0-116. Continues to improve functionally and with ROM and strength. Physical Therapy Plan Frequency and Duration Frequency of Treatment 2x/2k Duration of Treatment 4 weeks Plan of Care Start Date 09/18/20 Plan of Care End Date 10/18/20 Therapeutic Interventions Therapeutic Interventions Gait Training,Home Exercise Program,Joint Mobilizations, Manual Therapy,Neuromuscular Re-education,Patient/Caregiver Education,Self-Care/Home Management,Soft Tissue Mobilization,Taping, Therapeutic Activities, Therapeutic Exercises Modalities Cold Pack/Ice Massage,Electric Stimulation Next Visit Focus/Plan Next Note Type Treatment Note Next Visit Plan Emphasis on knee ROM, soft tissue mobility.
--- NOTE | 2020-10-16 16:07 | PT.OTN ---
Current Diagnoses Bilateral primary osteoarthritis of knee (10/16/20) Difficulty in walking, not elsewhere classified (10/16/20) Weakness (10/16/20) Physical Therapy Treatment Note PT-OP-A Visit Information Start: 07/16/20 13:38 Freq: Status: Active Protocol: Document 10/16/20 15:20 SAK (Rec: 10/16/20 16:07 SAK [id number]) Out-Patient Physical Therapy Visit Information Visit Information Visit Type Treatment Note Visit Start Time 15:17 Visit Stop Time 16:12 Total Visit Minutes 55 Visit Number 22 Number of ROLLING MILL OPERATOR Visits 0 PT-OP-B Current Condition Start: 07/16/20 13:38 Freq: Status: Active Protocol: Document 07/17/20 09:07 SAK (Rec: 07/17/20 10:06 SAK [id number]) Current Condition History of Current Condition Onset Date years Current Complaints left knee TKA scheduled for 07/24/20 History of Current Condition Long history left knee pain, wasn't approved for TKA until she lost some weight. Now scheduled 07/24/20. States her knee is hard to bend, very painful when bends her leg with walking. Has 3 stairs to enter, no railing but states she will have her son to help. as throw rug at front door and at shower but are nonskid. Lives alone on son's property (3 min away). Has PT scheduled after surgery. Has FWW. Treatment Goals Patient/Caregiver Goals Recover full function of her left knee Prior Functional Status Baseline Function- ADL's Independent Baseline Function- Mobility Independent Baseline Function- Gait no pain or limp Baseline Function- Work/School retired Baseline Function- Recreation/Hobbies limited by pain Current Functional Impairments (Reported) Functional Limitations- ADL's slow and painful Functional Limitations- Mobility/Gait slow and painful, step-to on stairs Functional Limitations- Work/School retired Functional Limitations- Recreation/ limited by pain Hobbies PT-OP-C Subjective Start: 07/16/20 13:38 Freq: Status: Active Protocol: Document 10/16/20 15:20 SAK (Rec: 10/16/20 16:07 SAK [id number]) OP-PT Subjective Patient Comments Patient Comments Busy taking care of [facility]. Has been doing her exercises, lots of walking . PT-OP-G Mobility & Gait Start: 07/16/20 13:38 Freq: Status: Active Protocol: Document 07/17/20 09:07 [facility] (Rec: 07/17/20 10:06 [facility] [id number]) OP Mobility Evaluation Transfers Sit to Stand independent with use of UE's OP Gait Assessment Gait Gait Assistance Required: Independent Assistive Devices Assistive Device Front Wheeled Walker Gait Deviations General Gait Pattern Antalgic Stair Climbing Evaluation Evaluation Level of Assist On Stairs Independent Devices Stair Climbing Assistive Devices Left Railing,Right Railing Technique/Endurance Stair Climbing Direction Ascend and Descend Stair Climbing Technique Step to Step PT-OP-K Range of Motion Start: 07/16/20 13:38 Freq: Status: Active Protocol: Document 08/02/20 09:04 [facility] (Rec: 08/02/20 13:00 [facility] [id number]) Knee Goniometric Range of Motion Knee Left Knee ROM WFL No Flexion Active (degrees) 74 Flexion Passive (degrees) 83 Extension Active (degrees) 29 Extension Passive (degrees) 15 PT-OP-M Strength Start: 07/16/20 13:38 Freq: Status: Active Protocol: Document 08/02/20 09:04 [facility] (Rec: 08/02/20 13:00 [facility] [id number]) Knee Strength Knee Manual Muscle Testing Left Flexion (S2) 3- Fair- Extension (L3) 3- Fair- PT-OP-Q Treatments Start: 07/16/20 13:38 Freq: Status: Active Protocol: Document 10/16/20 15:20 [facility] (Rec: 10/16/20 16:07 [facility] [id number]) Cardio Equipment Recumbent Elliptical ([employer]) Duration (Minutes) 10 Resistance 3 Seat Position 1 Other UE/LE Gym Equipment Shuttle Recovery Unilateral Squats Resistance 50 Shuttle Recovery Platform Stable Reps/Time 2x10 Bilateral Squats Resistance 75 Shuttle Recovery Platform Stable Reps/Time 2x15 Therapeutic Exercises Supine Exercises gravity assisted knee flex Side left Resistance AROM Reps/Minutes x10 Comments while on shuttle leg press using slider sheet, added to HEP Sitting Exercises dangling Reps/Minutes 10x Comments knee flex/ext plus end-range stretches with opposite LE knee flex Resistance L2 TB Reps/Minutes 10x2 LAQ Side bilateral Reps/Minutes 10x2 Standing Exercises stair lunge Standing Exercise Name end-range stretch Reps/Minutes 10x Comments 2nd of 6 inch stairs HC stretch Equipment Used JULIA Reps/Minutes 2x30 Gait Training Gait Activity stairs Description 4 stairs, 6 stairs Device Used prabha railing Level of Assistance SBA, cues Distance/Duration 1x,3X Treatment Focus alternating pattern Manual Therapy Treatment Soft Tissue Mobilization left knee Body Location quads, scar tissue, distal hamstrings Mobilization Type Instrument Assisted,Myofascial Release,Rolling,Strumming Intensity/Depth Deep Body Position Hooklying Joint Mobilizations patella Direction sup/inf, med/lat Grade III Body Position Supine Reps/Duration 5 min PT-OP-R Modalities Start: 07/16/20 13:38 Freq: Status: Active Protocol: Document 10/16/20 15:20 SAK (Rec: 10/16/20 16:07 [facility] [id number]) Hot Pack/Cold Pack Treatment Cold Pack Location L knee Patient Position Hooklying Treatment Duration (minutes) 10 Patient Tolerance Good Comments ice pack PT-OP-T Assessment and Plan Start: 07/16/20 13:38 Freq: Status: Active Protocol: Document 10/16/20 15:20 SAK (Rec: 10/16/20 16:07 [facility] [id number]) Physical Therapy Assessment Goals Four Impairment limited left knee ROM 32-69 actively Short Term Goal (STG) Improve left knee ROM to 10-95 degrees 08/02/20: 26-79 AROM 15-83 PROM 08/13/20: 15-87 deg PROM supine post cryocuff. 09/18/20: goal met STG Duration goal met Office Analyst Goal (LTG) Improve left knee AROM to 0- 120 degrees 09/18/20: AROM 6-109, AAROM 4- 114 LTG Duration 10/18/20 Five Impairment strength 3-/5 left knee Short Term Goal (STG) Patient to be independent and compliant with HEP 09/18/20: goal progress, patient continues to report doing some of the exercises, busy with caregiving for ceasar and tends to focus more on walking than flexibility or strengthening Office Analyst Goal (LTG) Improve left knee strength to 4+/5 09/18/20: goal progress 4-/5 within vailable ROM LTG Duration 10/18/20 Three Impairment Lower extremity functional scale 45% Short Term Goal (STG) Improve LEFS to 55% 09/18/20: LEFS 56% STG Duration goal met Office Analyst Goal (LTG) Improve LEFS score to at least 70% as measure of improved activity tolerance LTG Duration 10/18/20 Two Impairment gait dysfunction; antalgic Short Term Goal (STG) Patient able to ambulate with FWW with minimal to no limp 200 ft. 08/01/20: post-op patient ambulates independently with FWW but with minimal left knee flexion, holds very stiff. 09/18/20: goal met, patient ambulates with straight cane with mild compensation STG Duration goal met Office Analyst Goal (LTG) Patient able to ambulate on all usual surfaces with least restrictive device without limp and with normal mechanics . 09/18/20: patient ambulates on level surfaces without limp but with decreased left knee flexion LTG Duration 10/18/20 One Impairment pain left knee limiting function: 5/10 on pain scale Penitentiary Goal (LTG) Patient able to do all usual activities with pain no greater than 2/10 09/18/20: good goal progress, patient reports no pain with ambulation, improved sleep. Most pain with flexibility exercises. LTG Duration 10/18/20 Assessment Summary Assessment Left knee AAROM 0-121, AROM 3- 114, min limp, was able to ascend and descend stairs with alternating pattern. Good progress. Physical Therapy Plan Frequency and Duration Frequency of Treatment 2x/2k Duration of Treatment 4 weeks Plan of Care Start Date 09/18/20 Plan of Care End Date 10/18/20 Therapeutic Interventions Therapeutic Interventions Gait Training,Home Exercise Program,Joint Mobilizations, Manual Therapy,Neuromuscular Re-education,Patient/Caregiver Education,Self-Care/Home Management,Soft Tissue Mobilization,Taping, Therapeutic Activities, Therapeutic Exercises Modalities Cold Pack/Ice Massage,Electric Stimulation Next Visit Focus/Plan Next Note Type Treatment Note Next Visit Plan Emphasis on knee ROM, soft tissue mobility. Continue PT with decreased frequency to 1x /wk x 2-3 further weeks.
--- NOTE | 2020-10-26 17:03 | PT.OTN ---
Current Diagnoses Bilateral primary osteoarthritis of knee (10/26/20) Difficulty in walking, not elsewhere classified (10/26/20) Weakness (10/26/20) Physical Therapy Treatment Note PT-OP-A Visit Information Start: 07/16/20 13:38 Freq: Status: Active Protocol: Document 10/26/20 13:52 MA (Rec: 10/26/20 14:33 MA [id number]) Out-Patient Physical Therapy Visit Information Visit Information Visit Type Treatment Note Visit Start Time 13:45 Visit Stop Time 14:40 Total Visit Minutes 55 Visit Number 23 Number of REGISTERED PHYSICAL THERAPIST Visits 1 PT-OP-B Current Condition Start: 07/16/20 13:38 Freq: Status: Active Protocol: Document 07/17/20 09:07 SAK (Rec: 07/17/20 10:06 SAK [id number]) Current Condition History of Current Condition Onset Date years Current Complaints left knee TKA scheduled for 07/24/20 History of Current Condition Long history left knee pain, wasn't approved for TKA until she lost some weight. Now scheduled 07/24/20. States her knee is hard to bend, very painful when bends her leg with walking. Has 3 stairs to enter, no railing but states she will have her son to help. as throw rug at front door and at shower but are nonskid. Lives alone on son's property (3 min away). Has PT scheduled after surgery. Has FWW. Treatment Goals Patient/Caregiver Goals Recover full function of her left knee Prior Functional Status Baseline Function- ADL's Independent Baseline Function- Mobility Independent Baseline Function- Gait no pain or limp Baseline Function- Work/School retired Baseline Function- Recreation/Hobbies limited by pain Current Functional Impairments (Reported) Functional Limitations- ADL's slow and painful Functional Limitations- Mobility/Gait slow and painful, step-to on stairs Functional Limitations- Work/School retired Functional Limitations- Recreation/ limited by pain Hobbies PT-OP-C Subjective Start: 07/16/20 13:38 Freq: Status: Active Protocol: Document 10/26/20 13:52 MA (Rec: 10/26/20 14:33 MA [id number]) OP-PT Subjective Patient Comments Patient Comments Pt's R inferior knee has been bothering her more now. PT-OP-G Mobility & Gait Start: 07/16/20 13:38 Freq: Status: Active Protocol: Document 07/17/20 09:07 SAK (Rec: 07/17/20 10:06 SAK [id number]) OP Mobility Evaluation Transfers Sit to Stand independent with use of UE's OP Gait Assessment Gait Gait Assistance Required: Independent Assistive Devices Assistive Device Front Wheeled Walker Gait Deviations General Gait Pattern Antalgic Stair Climbing Evaluation Evaluation Level of Assist On Stairs Independent Devices Stair Climbing Assistive Devices Left Railing,Right Railing Technique/Endurance Stair Climbing Direction Ascend and Descend Stair Climbing Technique Step to Step PT-OP-K Range of Motion Start: 07/16/20 13:38 Freq: Status: Active Protocol: Document 08/02/20 09:04 SAK (Rec: 08/02/20 13:00 SAK [id number]) Knee Goniometric Range of Motion Knee Left Knee ROM WFL No Flexion Active (degrees) 74 Flexion Passive (degrees) 83 Extension Active (degrees) 29 Extension Passive (degrees) 15 PT-OP-M Strength Start: 07/16/20 13:38 Freq: Status: Active Protocol: Document 08/02/20 09:04 [facility] (Rec: 08/02/20 13:00 [facility] [id number]) Knee Strength Knee Manual Muscle Testing Left Flexion (S2) 3- Fair- Extension (L3) 3- Fair- PT-OP-Q Treatments Start: 07/16/20 13:38 Freq: Status: Active Protocol: Document 10/26/20 13:52 MA (Rec: 10/26/20 14:33 MA [id number]) Cardio Equipment Recumbent Bicycle Duration (Minutes) 6 Resistance 6 Seat Position 5-6 Gym Equipment Shuttle Recovery Unilateral Squats Details prabha Resistance 50# Shuttle Recovery Platform Stable Reps/Time 2x10 Bilateral Squats Resistance #100, 125 Shuttle Recovery Platform Stable Reps/Time 2x100 #, 1x125# Therapeutic Exercises Sitting Exercises knee flex Resistance L2 TB Reps/Minutes 10x2 LAQ Side bilateral Reps/Minutes 10x2 Standing Exercises HS stretch Equipment Used stair Reps/Minutes 30 x 2 Comments 2nd of 6 inch stairs stair lunge Standing Exercise Name end-range stretch Reps/Minutes 10x Comments 2nd of 6 inch stairs HC stretch Equipment Used JULIA Reps/Minutes 2x30 Manual Therapy Treatment Soft Tissue Mobilization left knee Body Location quads, scar tissue, distal hamstrings Mobilization Type Myofascial Release,Rolling, Strumming Intensity/Depth Deep Body Position Hooklying PT-OP-R Modalities Start: 07/16/20 13:38 Freq: Status: Active Protocol: Document 10/26/20 13:52 MA (Rec: 10/26/20 14:33 MA [id number]) Hot Pack/Cold Pack Treatment Cold Pack Location L knee Patient Position Hooklying Treatment Duration (minutes) 10 Patient Tolerance Good Comments ice pack PT-OP-T Assessment and Plan Start: 07/16/20 13:38 Freq: Status: Active Protocol: Document 10/26/20 13:52 MA (Rec: 10/26/20 14:33 MA [id number]) Physical Therapy Assessment Goals Four Impairment limited left knee ROM 32-69 actively Short Term Goal (STG) Improve left knee ROM to 10-95 degrees 08/02/20: 26-79 AROM 15-83 PROM 08/13/20: 15-87 deg PROM supine post cryocuff. 09/18/20: goal met STG Duration goal met Boil Off Machine Operator Cloth Goal (LTG) Improve left knee AROM to 0- 120 degrees 09/18/20: AROM 6-109, AAROM 4- 114 LTG Duration 10/18/20 Five Impairment strength 3-/5 left knee Short Term Goal (STG) Patient to be independent and compliant with HEP 09/18/20: goal progress, patient continues to report doing some of the exercises, busy with caregiving for ceasar and tends to focus more on walking than flexibility or strengthening Mcc Goal (LTG) Improve left knee strength to 4+/5 09/18/20: goal progress 4-/5 within vailable ROM LTG Duration 10/18/20 Three Impairment Lower extremity functional scale 45% Short Term Goal (STG) Improve LEFS to 55% 09/18/20: LEFS 56% STG Duration goal met Boil Off Machine Operator Cloth Goal (LTG) Improve LEFS score to at least 70% as measure of improved activity tolerance LTG Duration 10/18/20 Two Impairment gait dysfunction; antalgic Short Term Goal (STG) Patient able to ambulate with FWW with minimal to no limp 200 ft. 08/01/20: post-op patient ambulates independently with FWW but with minimal left knee flexion, holds very stiff. 09/18/20: goal met, patient ambulates with straight cane with mild compensation STG Duration goal met Mcc Goal (LTG) Patient able to ambulate on all usual surfaces with least restrictive device without limp and with normal mechanics . 09/18/20: patient ambulates on level surfaces without limp but with decreased left knee flexion LTG Duration 10/18/20 One Impairment pain left knee limiting function: 5/10 on pain scale Boil Off Machine Operator Cloth Goal (LTG) Patient able to do all usual activities with pain no greater than 2/10 09/18/20: good goal progress, patient reports no pain with ambulation, improved sleep. Most pain with flexibility exercises. LTG Duration 10/18/20 Assessment Summary Assessment Pt's R knee has been causing her pain recently but her L knee is feeling good and she feels it is moving really well . Pt has no difficulty ascending/descending reciprocally on stairs today Physical Therapy Plan Frequency and Duration Frequency of Treatment 2x/2k Duration of Treatment 4 weeks Plan of Care Start Date 09/18/20 Plan of Care End Date 10/18/20 Therapeutic Interventions Therapeutic Interventions Gait Training,Home Exercise Program,Joint Mobilizations, Manual Therapy,Neuromuscular Re-education,Patient/Caregiver Education,Self-Care/Home Management,Soft Tissue Mobilization,Taping, Therapeutic Activities, Therapeutic Exercises Modalities Cold Pack/Ice Massage,Electric Stimulation Next Visit Focus/Plan Next Note Type Treatment Note Next Visit Plan Emphasis on knee ROM, soft tissue mobility. Continue PT with decreased frequency to 1x /wk x 2-3 further weeks.
--- NOTE | 2020-11-07 15:42 | PT.OTN ---
Current Diagnoses Bilateral primary osteoarthritis of knee (11/07/20) Difficulty in walking, not elsewhere classified (11/07/20) Weakness (11/07/20) Physical Therapy Treatment Note PT-OP-A Visit Information Start: 07/16/20 13:38 Freq: Status: Active Protocol: Document 11/07/20 15:36 SAK (Rec: 11/07/20 15:42 SAK [id number]) Out-Patient Physical Therapy Visit Information Visit Information Visit Type Treatment Note Visit Start Time 13:45 Visit Stop Time 14:40 Total Visit Minutes 55 Visit Number 24 Number of DIRECTOR OF AGRICULTURE Visits 0 PT-OP-B Current Condition Start: 07/16/20 13:38 Freq: Status: Active Protocol: Document 07/17/20 09:07 SAK (Rec: 07/17/20 10:06 SAK [id number]) Current Condition History of Current Condition Onset Date years Current Complaints left knee TKA scheduled for 07/24/20 History of Current Condition Long history left knee pain, wasn't approved for TKA until she lost some weight. Now scheduled 07/24/20. States her knee is hard to bend, very painful when bends her leg with walking. Has 3 stairs to enter, no railing but states she will have her son to help. as throw rug at front door and at shower but are nonskid. Lives alone on son's property (3 min away). Has PT scheduled after surgery. Has FWW. Treatment Goals Patient/Caregiver Goals Recover full function of her left knee Prior Functional Status Baseline Function- ADL's Independent Baseline Function- Mobility Independent Baseline Function- Gait no pain or limp Baseline Function- Work/School retired Baseline Function- Recreation/Hobbies limited by pain Current Functional Impairments (Reported) Functional Limitations- ADL's slow and painful Functional Limitations- Mobility/Gait slow and painful, step-to on stairs Functional Limitations- Work/School retired Functional Limitations- Recreation/ limited by pain Hobbies PT-OP-C Subjective Start: 07/16/20 13:38 Freq: Status: Active Protocol: Document 11/07/20 15:36 SAK (Rec: 11/07/20 15:42 SAK [id number]) OP-PT Subjective Patient Comments Patient Comments No new c/o. Going to go to pool to do aquatic exercises and also use recumbant elliptical there. PT-OP-G Mobility & Gait Start: 07/16/20 13:38 Freq: Status: Active Protocol: Document 07/17/20 09:07 [facility] (Rec: 07/17/20 10:06 [facility] [id number]) OP Mobility Evaluation Transfers Sit to Stand independent with use of UE's OP Gait Assessment Gait Gait Assistance Required: Independent Assistive Devices Assistive Device Front Wheeled Walker Gait Deviations General Gait Pattern Antalgic Stair Climbing Evaluation Evaluation Level of Assist On Stairs Independent Devices Stair Climbing Assistive Devices Left Railing,Right Railing Technique/Endurance Stair Climbing Direction Ascend and Descend Stair Climbing Technique Step to Step PT-OP-K Range of Motion Start: 07/16/20 13:38 Freq: Status: Active Protocol: Document 08/02/20 09:04 [facility] (Rec: 08/02/20 13:00 [facility] [id number]) Knee Goniometric Range of Motion Knee Left Knee ROM WFL No Flexion Active (degrees) 74 Flexion Passive (degrees) 83 Extension Active (degrees) 29 Extension Passive (degrees) 15 PT-OP-M Strength Start: 07/16/20 13:38 Freq: Status: Active Protocol: Document 08/02/20 09:04 [facility] (Rec: 08/02/20 13:00 [facility] [id number]) Knee Strength Knee Manual Muscle Testing Left Flexion (S2) 3- Fair- Extension (L3) 3- Fair- PT-OP-Q Treatments Start: 07/16/20 13:38 Freq: Status: Active Protocol: Document 11/07/20 15:36 [facility] (Rec: 11/07/20 15:42 [facility] [id number]) Cardio Equipment Recumbent Bicycle Duration (Minutes) 10 Resistance 6 Seat Position 5-6 Gym Equipment Shuttle Recovery Unilateral Squats Details prabha Resistance 50# Shuttle Recovery Platform Stable Reps/Time 2x10 Bilateral Squats Resistance #100, 125 Shuttle Recovery Platform Stable Reps/Time 2x100 #, 1x125# Therapeutic Exercises Supine Exercises gravity assisted knee flex Side left Resistance AROM Reps/Minutes x3 Comments while on shuttle leg press using slider sheet, added to HEP Sitting Exercises chair squats Reps/Minutes 10x knee flex Resistance L2 TB Reps/Minutes 10x2 LAQ Side bilateral Reps/Minutes 10x2 Standing Exercises HC stretch Equipment Used JULIA Reps/Minutes 2x30 Gait Training Gait Activity stairs Description 4 stairs, 6 stairs Device Used prabha railing Level of Assistance SBA, cues Distance/Duration 1x,3X Treatment Focus alternating pattern Comments cues for gluteal activation Manual Therapy Treatment Soft Tissue Mobilization left knee Body Location quads, scar tissue, distal hamstrings Mobilization Type Myofascial Release,Rolling, Strumming Intensity/Depth Deep Body Position Hooklying PT-OP-R Modalities Start: 07/16/20 13:38 Freq: Status: Active Protocol: Document 11/07/20 15:36 [facility] (Rec: 11/07/20 15:42 [facility] [id number]) Hot Pack/Cold Pack Treatment Cold Pack Location L knee Patient Position Hooklying Treatment Duration (minutes) 10 Patient Tolerance Good Comments ice pack PT-OP-T Assessment and Plan Start: 07/16/20 13:38 Freq: Status: Active Protocol: Document 11/07/20 15:36 [facility] (Rec: 11/07/20 15:42 [facility] [id number]) Physical Therapy Assessment Goals Four Impairment limited left knee ROM 32-69 actively Short Term Goal (STG) Improve left knee ROM to 10-95 degrees 08/02/20: 26-79 AROM 15-83 PROM 08/13/20: 15-87 deg PROM supine post cryocuff. 09/18/20: goal met STG Duration goal met Skilled Nursing Goal (LTG) Improve left knee AROM to 0- 120 degrees 09/18/20: AROM 6-109, AAROM 4- 114 LTG Duration goal met 125 degrees 11/07/20 Five Impairment strength 3-/5 left knee Short Term Goal (STG) Patient to be independent and compliant with HEP 09/18/20: goal progress, patient continues to report doing some of the exercises, busy with caregiving for ceasar and tends to focus more on walking than flexibility or strengthening Spray Gun Repairer Goal (LTG) Improve left knee strength to 4+/5 09/18/20: goal progress 4-/5 within vailable ROM LTG Duration goal met Three Impairment Lower extremity functional scale 45% Short Term Goal (STG) Improve LEFS to 55% 09/18/20: LEFS 56% STG Duration goal met Spray Gun Repairer Goal (LTG) Improve LEFS score to at least 70% as measure of improved activity tolerance LTG Duration goal met Two Impairment gait dysfunction; antalgic Short Term Goal (STG) Patient able to ambulate with FWW with minimal to no limp 200 ft. 08/01/20: post-op patient ambulates independently with FWW but with minimal left knee flexion, holds very stiff. 09/18/20: goal met, patient ambulates with straight cane with mild compensation STG Duration goal met Spray Gun Repairer Goal (LTG) Patient able to ambulate on all usual surfaces with least restrictive device without limp and with normal mechanics . 09/18/20: patient ambulates on level surfaces without limp but with decreased left knee flexion LTG Duration goal met One Impairment pain left knee limiting function: 5/10 on pain scale Skilled Nursing Goal (LTG) Patient able to do all usual activities with pain no greater than 2/10 09/18/20: good goal progress, patient reports no pain with ambulation, improved sleep. Most pain with flexibility exercises. LTG Duration goal met Assessment Summary Assessment goals met. Patient ready for discharge to independent [facility] and self-management. Going to go back to the pool for aquatic exercise which should be very beneficial. She may be having right TKA later this year so will need further PT at that time.
== END 2020-11-08 08:36 | disposition home or self-care (01) ==
LOC: PHYS 13:45
PROVIDERS: Family Provider Internal Medicine; PCP Internal Medicine; Referring Provider Orthopaedic Surgery; Visit Provider Orthopaedic Surgery
DX: M17.0 Bilateral primary osteoarthritis of knee (principal); R53.1 Weakness; R26.2 Difficulty in walking, not elsewhere classified
CPT/HCPCS: 97010; 97014; 97110; 97116; 97140; 97162; 97535; G0283

== ENCOUNTER → 2021-10-15 11:42 | Outpatient (CLI) | payer MEDICARE, OTHER, SELFPAY ==
[2020-07-24 16:58] VITALS: BMI 39.9
--- NOTE | 2021-10-15 | DI.MRI.S_ITS ---
PROCEDURE: MR KNEE RT WO CON INDICATIONS: Unilateral primary osteoarthritis, right knee TECHNIQUE: Noncontrast sagittal PD fast spin echo and T2 fast spin echo with fat saturation, sagittal 3-D FLASH with fat saturation; coronal T1 spin echo and PD fast spin echo with fat saturation, and axial PD fast spin echo with fat saturation through the knee. COMPARISON: [facility] [place], CR, XR KNEE 4+ VIEWS RIGHT, 09/18/2021, 8:32. FINDINGS: Image quality: Excellent. Menisci: Medial extrusion of the medial meniscus is present. There is amorphous and linear horizontal high signal intensity within the anterior horn, body, and posterior horn medial meniscus, demonstrating superior and inferior articular surface extension, indicating complex tearing. There is truncation of the free edge of the lateral meniscal body, indicating radial tearing. Cruciate ligaments: There is attenuation and posterior bowing of the anterior cruciate ligament. Posterior cruciate ligament is intact. Medial structures: The medial collateral ligament appears intact. Visualized portions of the pes anserinus tendons appear normal. Small amount of medial bursal fluid. Lateral structures: The lateral collateral ligament demonstrates a small amount of high T2 signal intensity at the femoral origin. long and short heads of the biceps femoris tendon appear intact. The popliteus tendon appears normal. Iliotibial band appears normal. Anterior structures: The quadriceps and patellar tendons appear intact. Lateral patellar subluxation. Lateral ventral trochlear prominence. Moderate edema in the superolateral aspect of the infrapatellar fat pad. Bones and cartilage: There is moderate tricompartmental periarticular osteophyte formation. Subchondral low high T2 signal intensity within the weight-bearing aspects of the medial femoral condyle, medial tibial plateau, and central tibial plateau. Subchondral degenerative marrow edema within the lateral patellar facet and lateral femoral trochlea. Severe articular cartilage loss overlies the weight-bearing aspects of the medial femoral condyle, medial tibial plateau, patellar apex, lateral patellar facet and lateral femoral trochlea. Joint space: There is a moderate knee joint effusion and a trace Austin's cyst. Normal appearing synovial plicae are incidentally noted. IMPRESSION: 1. Tricompartmental osteoarthritis with associated articular cartilage loss. 2. Medial and lateral meniscal tearing. 3. Findings consistent with lateral patellofemoral friction syndrome in the appropriate clinical setting. 4. Partial thickness lateral collateral ligament tear. 5. Knee joint effusion and trace Austin's cyst. 6. Medial bursitis. Dictated by: Phillip Perry M.D. on 10/15/2021 at 13:58 Approved by: Phillip Perry M.D. on 10/15/2021 at 14:01
== END ==
PROVIDERS: Family Provider Internal Medicine; PCP Student in an Organized Health Care Education/Training Program; Referring Provider Orthopaedic Surgery; Visit Provider Orthopaedic Surgery
DX: M17.11 Unilateral primary osteoarthritis, right knee (principal); S83.231A Complex tear of medial meniscus, current injury, right knee, initial encounter; S83.281A Other tear of lateral meniscus, current injury, right knee, initial encounter; S83.421A Sprain of lateral collateral ligament of right knee, initial encounter; M70.51 Other bursitis of knee, right knee; M25.461 Effusion, right knee
CPT/HCPCS: 73721

== ENCOUNTER → 2021-10-30 09:56 | Outpatient (CLI) | payer MEDICARE, OTHER, SELFPAY ==
[2020-07-24 16:58] VITALS: BMI 39.9
[2021-10-30 10:48] LABS: Add Manual Diff / Slide Review NO; Basophils Absolute Auto 0 /uL (0-100); Eosinophils Absolute Auto 100 /uL (0-450); Eosinophils Percent Auto 2.8 % (2-4); Hematocrit 37.9 % (36-46); Hemoglobin 13.3 g/dL (12.0-16.0); Lymphocytes Absolute Auto 1700 /uL (1100-4500); Lymphocytes Percent Auto 36.9 % (25-40); Mean Corpuscular Hemoglobin 32.1 PG (26-34); Mean Corpuscular Volume 91.6 fL (80-100); Monocytes Absolute Auto 300 /uL (0-900); Monocytes Percent Auto 6.7 % (3-14); Neutrophils Absolute Auto 2400 /uL (1500-7000); Neutrophils Percent Auto 52.6 % (50-75); Platelet Count 275 X10^3/uL (150-400); Red Blood Cell Count 4.14 X10^6/uL (4.0-5.2); Red Cell Distribution Width 13.4 % (11.6-14.8); White Blood Cell Count 4.5 X10^3/uL (4.5-11.0)
[2021-10-30 11:00] LABS: Hemoglobin A1C% w Est Avg Glu 5.6 % (4.0-6.0)
[2021-10-30 12:42] LABS: BUN Creatinine Ratio 31.6 (6-22); Blood Urea Nitrogen 24 mg/dL (7-17); Calcium 9.6 mg/dL (8.4-10.2); Carbon Dioxide 27 mmol/L (22-32); Chloride 107 mmol/L (98-107); Estimated Glomerular Filt Rate > 60 mL/min (>60); Glucose 104 mg/dL (80-110); HEMOLYSIS < 15 (0-50); Potassium 4.1 mmol/L (3.4-5.1); Sodium 142 mmol/L (137-145)
[2021-10-30 14:30] LABS: Appearance Urine UA CLEAR; Bilirubin Urine UA NEGATIVE (NEGATIVE); Color Urine UA YELLOW; Glucose Urine UA NEGATIVE (Negative); Ketones Urine UA NEGATIVE (NEGATIVE); Leukocyte Esterase Urine UA NEGATIVE (NEGATIVE); Nitrite Urine UA NEGATIVE (Negative); Occult Blood Urine UA NEGATIVE (Negative); Protein Urine UA NEGATIVE (Negative); Specific Gravity Urine UA 1.025 (1.000-1.035); Urobilinogen Urine UA 0.2 E.U./dL (0.2)
[2021-10-30 15:30] LABS: RBC Urine 0-1/HPF (0-5/HPF); WBC Urine 1-5/HPF (0-5/HPF)
[2021-10-30 15:31] LABS: Bacteria Urine None Seen; Culture Indicated Urine Cult Not Indicated; Squamous Epithelial Cell Urine 0-1 /HPF (0-5/HPF)
== END ==
PROVIDERS: Family Provider Internal Medicine; PCP Student in an Organized Health Care Education/Training Program; Referring Provider Student in an Organized Health Care Education/Training Program; Visit Provider Student in an Organized Health Care Education/Training Program
DX: Z01.818 Encounter for other preprocedural examination (principal); Z01.812 Encounter for preprocedural laboratory examination; Z13.820 Encounter for screening for osteoporosis; Z78.0 Asymptomatic menopausal state; M85.851 Other specified disorders of bone density and structure, right thigh; M85.852 Other specified disorders of bone density and structure, left thigh; I10 Essential (primary) hypertension; R73.9 Hyperglycemia, unspecified; N39.0 Urinary tract infection, site not specified
CPT/HCPCS: 36415; 77080; 80048; 81001; 83036; 85025; 93005; 93010

== ENCOUNTER → 2021-12-02 11:27 | Outpatient (CLI) | payer MEDICARE, OTHER, SELFPAY ==
[2020-07-24 16:58] VITALS: BMI 39.9
[2021-12-02 12:36] LABS: COVID19 -Nasal RAPID Negative (Negative)
== END ==
PROVIDERS: Family Provider Internal Medicine; PCP Student in an Organized Health Care Education/Training Program; Referring Provider Orthopaedic Surgery; Visit Provider Orthopaedic Surgery
DX: Z20.822 Contact with and (suspected) exposure to COVID-19 (principal)
CPT/HCPCS: 87635; C9803

== ENCOUNTER 2021-12-03 11:55 | Day surgery (SDC) | payer MEDICARE, OTHER, SELFPAY ==
[2020-07-24 16:58] VITALS: BMI 39.9
[2021-11-27 09:37] VITALS: BMI 40.3
[2021-12-03] VITALS (15 sets, daily range): BP systolic 105–184; BP diastolic 58–89; PULSE 50–68; RESP 16–34; TEMP 36.1–36.9; O2SAT 92–100; BMI 40.3
[2021-12-03] MEDS: ACETAMINOPHEN 325 MG TABLET 975 MG PO (12:39)
[2021-12-03] MEDS: CELECOXIB 200 MG CAPSULE PO (12:39)
[2021-12-03] MEDS: LACTATED RINGERS 1,000 ML 42 ML IV (12:40)
[2021-12-03] MEDS: VANCOMYCIN 1,000 MG/200 ML PIGGYBACK 200 MG IV (13:41)
--- NOTE | 2021-12-03 13:42 | SUR.PREOP ---
ambulated to the bathroom, stable on feet. wearing brief
--- NOTE | 2021-12-03 14:47 | P.OP_ITS ---
Operative Date/Time/Diagnoses Date of procedure: 12/03/21 Time of procedure: 15:00 Pre-op diagnosis: Severe right knee OA Post-op diagnosis: same Procedure & Clinicians Procedure: Right total knee arthroplasty Same procedure as scheduled: Yes Indications: The patient has had progressively worsening right knee pain with radiographic changes consistent with arthritis. Non-operative management has failed and the patient has requested total knee replacement. The risks, benefits and alternatives to surgery were discussed with the patient prior to proceeding. Risks discussed included, but were not limited to, failure to relieve pain, stiffness, infection, nerve damage, deep venous thrombosis, pulmonary embolism, stroke, coma, heart attack, permanent paralysis and , as well as the potential need for eventual revision of the prosthetic. Surgeon: Aisha Jones [employer] Supervisor: Claude Bailon Anesthesia Type: General and Spinal Operative Notes Findings: Severe right knee osteoarthritis, good stability Closure Type: primary Specimen(s): none sent Prosthetic devices, grafts, tissues, transplants, or devices: Size 4 right femur, size 3 right tibia, +10 poly, 32 x 7.5 mm poly Applied: drain(s) Estimated Blood Loss (mL): 250 Blood products transfused: none Tourniquet time (min): 76 Procedure in detail: The patient was seen in the pre-operative area, where the patient identified the right knee as the operative site and this was marked with my initials. The patient received pre-operative antibiotics, and was taken to the operating room and placed on the operative table in the supine position. After satisfactory anesthesia, a timekeeper out was performed. The right leg was encircled with a tourniquet about the proximal thigh, and the leg was prepared from the toes to the tourniquet with ChloroPrep in the usual fashion and draped through sterile drapes. The leg was elevated and exsanguinated with Eschmark bandage and the tourniquet inflated to [250] mmHg pressure. The knee was approached through an approximately 18 cm incision centered over the patella and carried into the knee through a medial parapatellar arthrotomy. Portion of the medial and lateral meniscus was resected. Soft tissue was carefully mobilized around the patella the patella was measured with a caliper. Bone was resected from the patella and the patellar height was reconstituted with up an appropriate sized patellar component. A cover was then placed on the patella. A small amount of additional medial and lateral meniscus was resected. The visionare guide fit well to the distal femur. It looked like an appropriate distal femoral cut and the cut was made without difficulty. The rotation was assessed and the appropriate size femoral guide was placed on the distal femur and finishing cuts were made. There was no evidence of notching. The anterior, posterior and chamfer cuts were then made. The posterior osteophytes and soft tissues were then removed. The posterior capsule was injected with part of a mixture of 60 ml 0.25% Marcaine mixed with 20 ml Exparel for post operative pain control. The remainder of this mixture was injected into the capsule and subcutaneous tissues during cement curing. The tibia was prepared and the visionaire guide fit well to the distal tibia. The rotation was assessed. The patient was placed in extension residual medial and lateral meniscus as well as any residual bone was carefully resected. [No] additional tibia was resected. Hemostasis was achieved especially posteriorly. Additional local was injected into the posterior capsule. The extension gap was assessed and additional releases for gap balancing were performed as necessary. It was checked with the gap sausage inspector. The femoral component trial was placed a nd the notch was finished. Trial tibial and femoral components were then placed and the knee placed through a range of motion. Range of motion was [0-130], with good stability throughout the range. The trials were then removed, and the tibia was finished. The bone was prepared with pulsatile lavage, and dried with a sponge. Cement was applied and the final prosthetics placed. Excess cement was removed during and after cement curing. A brief Betadine soak was performed. After confirming there was no extruded cement posteriorly, the final tibial insert was placed. The knee was copiously irrigated and the tourniquet deflated. Hemostasis was obtained with the Bovie cautery. A drain was placed and brought out superolaterally. The capsule was closed with interrupted Vicryl. The subcutaneous layer was closed with barbed sutures, and the skin with a running 3-0 V-Lock suture and Surgical glue. A ashwin dressing was applied and the patient was taken to recovery having tolerated the procedure well. Complications: none Post-operative Condition: stable Disposition: Acute Care Plan for aftercare: The patient will be maintained on a standard total knee replacement protocol with weight bearing as tolerated. The patient will receive aspirin and se quential compression devices for DVT prophylaxis. The patient will be discharged home when safe for the home environment.
--- NOTE | 2021-12-03 14:47 | PM.PREOP ---
Pre-operative Note COVID-19 COVID-19 status: Negative Interval Note History & Physical reviewed/Exam performed by Physician: Yes Changes to H&P: No
--- NOTE | 2021-12-03 15:17 | SUR.PREOP ---
Block start time [1450] . Time out done prior to block. Monitoring initiated and maintained throughout procedure. Oxygen and medications given per anesthesiologist instructions. Patient remained stable throughout procedure, no adverse reactions noted. Block end time [1458].
[2021-12-03] MEDS: CEFAZOLIN 2 GM/20 ML SYRINGE IV (15:30)
[2021-12-03] MEDS: BUPIVACAINE 0.5% (PF) 30 ML, EPINEPHrine 0.15 MG INJ (15:44)
--- NOTE | 2021-12-03 15:48 | SUR.OPER ---
Supine on padded OR bed. Pillow under head, arms secured on padded armboards <90 degree abduction. Safety belt across torso. Non-operative leg secured with tape over blanket over lower leg. Operative leg secured in DeMayo/Raji/Nathe positioner. Foam padded brace at thigh of operative leg. POSTION APPROVED BY ANESTHESIA AND SURGEON
[2021-12-03] MEDS: BUPIVACAINE LIPOSOME 266 MG/20 ML VIAL INJ (16:44)
--- NOTE | 2021-12-03 17:30 | DI.RAD.S_ITS ---
PROCEDURE: XR KNEE RT 1TO2V INDICATIONS: RIGHT TOTAL KNEE TECHNIQUE: 2 view(s) of the knee acquired. COMPARISON: None. FINDINGS: Bones: Patient is status post knee joint arthroplasty. Hardware components are in expected positions. Visualized bony structures are intact. Soft tissues: Overlying postoperative changes are noted. IMPRESSION: Expected postsurgical change for right knee arthroplasty. Dictated by: Alicia Frazier MD, PhD on 12/04/2021 at 9:20 Approved by: Alicia Frazier MD, PhD on 12/04/2021 at 9:21
--- NOTE | 2021-12-03 17:50 | SUR.PHASEI ---
Stable PACU stay, pt denied pain no nausea, tolerating fluids, 02@ 2/l via nasal cannula. I'm just so tired, stated she did not sleep well, pt follows commands. Report attempted, room not ready. Pricilla APODACA to call back, when room ready.
[2021-12-03] MEDS: OXYCODONE IR 5 MG TABLET PO (18:21)
--- NOTE | 2021-12-03 18:26 | SUR.PHASEI ---
Report called to TESS Martinez. Room still not cleaned.
--- NOTE | 2021-12-03 19:01 | SUR.PHASEI ---
Pt trasported pt up to room. Bed low, locked scd's on and call judge in reach. Left pt with TESS Adkins and left pt in stable condition.
[2021-12-03] MEDS: LACTATED RINGERS 1,000 ML 100 ML IV (20:05)
[2021-12-03] MEDS: ACETAMINOPHEN 325 MG TABLET 650 MG PO (20:12)
[2021-12-03] MEDS: ASPIRIN EC 81 MG TABLET PO (20:12)
[2021-12-03] MEDS: DOCUSATE 100 MG CAPSULE PO (20:12)
[2021-12-03] MEDS: OXYCODONE IR 10 MG TABLET PO (20:33)
[2021-12-04] VITALS: BP 143/89; PULSE 58; RESP 18; TEMP 36.3; O2SAT 97
[2021-12-04] MEDS: CEFAZOLIN 2 GM/20 ML SYRINGE IV ×2 (00:01→06:29)
[2021-12-04] MEDS: ACETAMINOPHEN 325 MG TABLET 650 MG PO ×3 (00:01→11:04)
[2021-12-04 00:22] VITALS: BP 143/89; PULSE 58; RESP 18; TEMP 36.3; O2SAT 97
[2021-12-04 04:22] VITALS: BP 172/68; PULSE 45; RESP 18; TEMP 36.2; O2SAT 99
[2021-12-04 06:01] LABS: Hematocrit 34.1 % (36-46); Hemoglobin 11.7 g/dL (12.0-16.0)
[2021-12-04 08:00] VITALS: BP 134/78; PULSE 60; RESP 17; O2SAT 95
[2021-12-04] MEDS: ASPIRIN EC 81 MG TABLET PO (11:04)
[2021-12-04] MEDS: DOCUSATE 100 MG CAPSULE PO (11:05)
[2021-12-04] MEDS: ASCORBIC ACID 500 MG TABLET PO (11:05)
[2021-12-04] MEDS: CHOLECALCIFEROL (VITAMIN D3) 1,000 UNIT TABLET 1000 UNIT PO (11:05)
[2021-12-04] MEDS: OXYCODONE IR 10 MG TABLET PO (11:09)
[2021-12-04] MEDS: ZINC SULFATE 220 MG CAPSULE PO (11:12)
--- NOTE | 2021-12-04 11:20 | PT.IIE ---
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) Essential hypertension Excessive daytime sleepiness (~2008) Generalized osteoarthritis GERD without esophagitis History of falling Intentional weight loss 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 Mixed hyperlipidemia Morbid obesity with BMI of 40.0-44.9, adult Nocturnal hypoxemia Obstructive sleep apnea of adult (~2008) Other pulmonary embolism with acute cor pulmonale Primary osteoarthritis of left knee Pulmonary emboli (~2007) Seasonal allergies Stasis dermatitis Venous insufficiency Physical Therapy Inpatient Evaluation/Re-Eval M1 PT/OT-IP Prior Functional Status Start: 12/04/21 13:00 Freq: NEEDED Status: Active Protocol: Document 12/04/21 11:20 AB (Rec: 12/04/21 13:14 AB [id number]) Medical Review Prior Functional Status Medical History Reviewed Yes Communication able to make needs known Mobility and Gait pt stated that she is independent with all mobilities and ambulation without AD Social History Household Members family Living Arrangements House Number of Floors (Floors) One Floor Number of Stairs To Enter/Railing? 2 steps L rail ascdending to enter the house Home Environment Standard Height Toilet,Walk in Shower Home Equipment Front Wheel Walker,Straight Cane Additional Social History Comment pt stated that a friend will stay with her for ~ 2 days to assist her; family lives in the same lot property as hers and can assist her if needed M2 PT-IP Current Condition Start: 12/04/21 13:00 Freq: NEEDED Status: Active Protocol: Document 12/04/21 11:20 AB (Rec: 12/04/21 13:14 AB [id number]) Physical Therapy Current Condition Current Condition Evaluation Date 12/04/21 Treatment Diagnosis s/p R TKA; difficulty in walking Onset Date 12/03/21 M3 PT-IP Subjective Start: 12/04/21 13:00 Freq: NEEDED Status: Active Protocol: Document 12/04/21 11:20 AB (Rec: 12/04/21 13:14 AB [id number]) Subjective Physical Therapy Visit Type Type Initial Evaluation Visit Start Time 11:20 Visit Stop Time 12:00 Total Visit Minutes 40 Number of LOUNGE CAR ATTENDANT Visits 0 Physical Therapy Visit Comments Patient Comments agreeable to do PT Therapy Pain Assessment Pain When Pain Assessed At Rest Pain Present Pain Present Pain Reported Location r knee Intensity 8 Scale Used Numeric (0 - 10) Pain Management Techniques Apply Cold,Distraction, Elevation,Modification of Treatment,Re-positioning, Timing of Activity with Medications M4 PT-IP Mobility and Gait Start: 12/04/21 13:00 Freq: NEEDED Status: Active Protocol: Document 12/04/21 11:20 AB (Rec: 12/04/21 13:14 [id number]) PT-Bed Mobility Assessment Supine to Sit Supine to Sit Standby Assistance PT-Transfer Assessment Sit to and From Stand Sit to and from Stand Standby Assistance,1 Person Assistance,Use of Upper Extremities Equipment Transfer Assistive Device Gait Belt,Front Wheeled Walker Orthotic/Prosthetic Devices or Brace: No Transfers Transfer Destination Chair Transfer Technique ambulated Transfer Ability Level of Assist Standby Assistance,1 Person Assistance,Use of Upper Extremities Comments Mobility Comments completed bed mobility supine to sit SBA. able to sit on EOB SBA. completed sit to stand SBA and ambulated to the chair using FWW SBA. agreed to do stairs. ambulated to the hallway using FWW SBA ~ 150 ft . educated on stair climbing technique. completed up/down steps holding on to L rail with B hands and completed x 2 sets requiring CGA. pt assisted back to her room. ambulated from w/c to chair using FWW SBA. positioned pt on the chair. call light and table placed within reach. Gait Assessment Gait Gait Assistance Required: Standby Assistance,1 Person Assist Distance (Feet) 150 Able to Maintain Weight Bearing Status Yes During Gait Assistive Devices Assistive Device Gait Belt,Front Wheeled Walker Orthotic/Prosthetic Devices or Brace: No Gait Deviations General Gait Pattern Antalgic,Decreased Stride Length,Decreased Feet Clearance Factors Limiting Gait Function Factors Limiting Gait Function Decreased Activity Tolerance, Decreased Sensation,Decreased Strength,Limited Range of Motion,Pain,Poor Balance Stair Climbing Assessment Evaluation Level of Assist On Stairs Contact Guard Assistance,1 Person Assistance Devices Stair Climbing Assistive Devices Left Railing Technique/Endurance Stair Climbing Direction Ascend and Descend Stair Climbing Technique Step to Step Number of Steps Climbed 3 Query Text: Stair Climbing Set # Repetitions (reps) 2 PT-Balance Assessment Sitting Balance and Reactions Static Sitting Balance Ability Good Dynamic Sitting Balance Ability Good Standing Balance and Reactions Static Standing Balance Ability Fair Dynamic Standing Balance Ability Fair Device Used FWW M5 PT-IP Objective Assessments Start: 12/04/21 13:00 Freq: NEEDED Status: Active Protocol: Document 12/04/21 11:20 AB (Rec: 12/04/21 13:14 [email or web address]) Orientation Orientation/Cognition Level of Alertness Alert Orientation Name,Place,Situation Language Function Ability Hard of Hearing Safety Awareness Decreased Safety Awareness Memory Description No Deficits Noted Gross Range of Motion Lower Extremity ROM Assessment Right Impaired Impairments R knee flexion: ~ 70 deg Strength Lower Extremity Strength Assessment Right Impaired Hip 3+/5 Knee 3+/5 Coordination Assessment Gross Coordination Gross Coordination WNL Sensation Assessment Sensation Sensation Description Numbness Comments Sensation Comments chronic BLE neuropathy mid leg to B feet Muscle Tone Muscle Tone WNL Yes M6 PT-IP Treatment Start: 12/04/21 13:00 Freq: NEEDED Status: Active Protocol: Document 12/04/21 11:20 AB (Rec: 12/04/21 13:14 [email or web address]) Physical Therapy Treatment Education Education Provided Precautions,Weight Bearing Status,Post-Op Packet,Safety M7 PT-IP Assessment and Plan Start: 12/04/21 13:00 Freq: NEEDED Status: Active Protocol: Document 12/04/21 11:20 AB (Rec: 12/04/21 13:14 [email or web address]) PT Summary Assessment and Plan Potential Rehabilitation Potential Good Status of Condition at Evaluation Stable Summary Impairments Pain,ROM,Strength,Balance, Coordination,Sensation,Tone, Cognition,Bed Mobility, Transfers,Gait,Activity Tolerance Assessment Summary pt requiring SBA with mobility and plans to go home with her friend and family to assit her. pt may to home when medically stable. Goals Bed Mobility Goal Independent Transfer Goal Independent,Front Wheeled Walker Gait Goal Independent,Front Wheel Walker Gait Distance 250 Other Goals up/down 2 steps L rail ascending SBA Days to Meet Goals 5 Frequency of Treatment Frequency Of Treatment Twice a Day Treatment Plan Physical Therapy Treatment Plan Bed Mobility Training,Transfer Training,Gait Training, Therapeutic Exercise,Balance Retraining,Post Op Education, Discharge Planning,Hot or Cold Pack,Neuromuscular Re-ed, Coordination Retraining,Manual Therapy Weight Bearing Status Weight Bearing Status Weight Bear as Tolerated Allowed Weight Bearing Amount (enter % RLE WBAT or #) (%) Recommendations To Nursing Amount of Assist Needed 1 Person Assist Discharge Recommendations PT Discharge Recommendations Outpatient PT Transportation Needs at Discharge Private Vehicle
[2021-12-04 12:01] VITALS: BP 132/62; PULSE 90; RESP 18; TEMP 36.6; O2SAT 95
--- NOTE | 2021-12-04 14:42 | PC.NURSE ---
I removed the HV. I reinforced the patient's fantasma drsng . FANTASMA light is blinking green and not vibrating. I sent the patient with extra dressing did some teaching regarding fantasma dressing care. dc paperwork instructions given.
--- NOTE | 2021-12-04 14:45 | PM.DS.1 ---
History of Present Illness History of Present Illness Date Patient Seen: 12/04/21 Time Patient Seen: 07:30 Chief complaint: Right knee pain Narrative: Patient states her pain is [id number]. Denies fever chills. No nausea vomiting. Patient has assistance at home. Discharge Providers Provider Discharge Date: 12/04/21 Primary care physician: Kasia Dao PA-C Consults: 11/28/21 07:24 Consult to Anesthesiology Routine Comment: Consulting Provider: Anesthesiologist Reason for consultation: PAC Courtesy re: Abnormal pre-op ECG 12/03/21 12:00 Consult to Anesthesiology Routine Comment: Consulting Provider: Anesthesiologist Reason for consultation: Regional block for post operative pain control 12/03/21 19:36 Consult to Discharge Planning Routine Comment: Consult to Physical Therapy Evaluate & Treat Comment: Physician Instructions: postop TKA protocol Consult to Respiratory Therapy Evaluate & Treat Comment: Physician Instructions: Evaluate and treat Discharge provider: Claude Bailon PA-C Summary Hospital Course Discharge Diagnosis: Severe right knee osteoarthritis Hospital Course: Right total knee arthroplasty Same procedure as scheduled: Yes Indications: The patient has had progressively worsening right knee pain with radiographic changes consistent with arthritis. Non-operative management has failed and the patient has requested total knee replacement. The risks, benefits and alternatives to surgery were discussed with the patient prior to proceeding. Risks discussed included, but were not limited to, failure to relieve pain, stiffness, infection, nerve damage, deep venous thrombosis, pulmonary embolism, stroke, coma, heart attack, permanent paralysis and , as well as the potential need for eventual revision of the prosthetic. Surgeon: Aisha Jones Cabinet Builder: Claude Bailon Anesthesia Type: General and Spinal Operative Notes Findings: Severe right knee osteoarthritis, good stability Closure Type: primary Specimen(s): none sent Prosthetic devices, grafts, tissues, transplants, or devices: Size 4 right femur, size 3 right tibia, +10 poly, 32 x 7.5 mm poly Applied: drain(s) Estimated Blood Loss (mL): 250 Blood products transfused: none Tourniquet time (min): 76 Patient admitted to the hospital for right total knee arthroplasty. Patient consented to the same. Patient taken operating room underwent right total knee arthroplasty on December 03, 2021. Patient back in her room recovering well as in stable condition. Patient worked with Physical therapy and deemed safe for home environment. She will be discharged home today in stable condition. Status at Discharge Cognitive/behavioral status at discharge: oriented and at baseline, oriented Functional status at discharge: uses cane/walker Overall status at discharge: patient is progressing back to baseline Exam Vital Signs (past 8 hours): - 12/04/21 08:00 12/04/21 12:01 Temperature 97.9 F Pulse Rate 60 90 Respiratory Rate 17 18 Blood Pressure 134/78 132/62 Pulse Oximetry 95 95 Oxygen Flow Rate 0 0 Oxygen Delivery Method Room Air Oxygen Flow Rate 0 Narrative Exam Narrative: Pleasant 76-year-old female resting comfortably in bed in no apparent distress. Ashwin dressing is on and functioning. Scant drainage on the distal aspect of the dressing. Hemovac in place. Motor functions intact distal bilateral lower extremities. Sensation grossly intact to light touch bilateral lower extremities. 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 Mixed hyperlipidemia Morbid obesity with BMI of 40.0-44.9, adult Nocturnal hypoxemia Obstructive sleep apnea of adult (~2008) Other pulmonary embolism with acute cor pulmonale Primary osteoarthritis of left knee Pulmonary emboli (~2007) Seasonal allergies Stasis dermatitis Venous insufficiency Surgical History H/O bilateral cataract extraction History of arthroplasty of left knee (07/24/20) History of cholecystectomy History of salpingo-oophorectomy Social History marital status: number of children: 2 household members: family lives independently: Yes caregiver/support person: No housing: house education level: college pino/mu-ism: Miranda Smoking Status: Never smoker alcohol intake: never substance use type: does not use Type(s) of exercise: walking additional social history: 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 Multimodal pain management Ashwin dressing instructions reviewed with patient, ashwin dressing instructions placed in chart for home reference. Discharge home today in stable condition. Discharge Plan Discharge Plan Patient Disposition: Home Discharge orders & Medications Discharge Orders: Discharge (Order); Ordered 12/04/21 Ordered By: Claude Bailon Prescriptions: New acetaminophen 325 mg Tablet 650 mg PO Q6HR Qty: 60 0RF aspirin 81 mg Tablet,Delayed Release (Dr/Ec) 81 mg PO BID Qty: 60 0RF docusate sodium 100 mg Capsule 100 mg PO BID Qty: 20 0RF oxycodone 10 mg Tablet 10 mg PO Q3HR PRN (Reason: Pain, Severe (7-10)) Qty: 60 0RF Continued vitamin B complex Capsule 1 cap PO DAILY cholecalciferol (vitamin D3) [Vitamin D3] 25 mcg (1,000 unit) Capsule 25 mcg PO DAILY zinc 50 mg tablet 50 mg PO DAILY ascorbic acid (vitamin C) 500 mg tablet 500 mg PO DAILY magnesium 250 mg tablet 250 mg PO DAILY Follow up/Referrals: Kasia Dao PA-C [Primary Care Provider] - Aisha Jones MD [Physician] - As previously scheduled (Follow up with Claude Bailon PA-C, on 12/19/2021 @ [facility] office in [place].) Diet/Activity/Treatments Diet: Diet as Tolerated Activity: Per total knee protocol Cold/Heat Therapy: Ice as needed Skin/Wound/Dressing Care Report to your healthcare provider any signs of infection, such as:: chills, fever, increased pain, unusual drainage and unusual redness Dressing: May remove Bird wrap in 48-72 hours, leave dressing in place, ashwin instructions reviewed, keep clean and dry. Visit Report/Discharge Packet Instructions: DI for Knee Replacement, How to Prevent Falls, DI for Prescription Opioid Use Stand Alone Forms: Surgery Discharge Discharge Data Primary Care Provider: Kasia Dao Attending Provider: Aisha Jones Quality VTE Deep Vein Thrombosis/Pulmonary Embolism Present on Admission: No
--- NOTE | 2021-12-04 15:07 | CM.DANOTE ---
DCP/Assessment: Reviewed chart. Patient is a 76yr old female admitted to [facility] for elective right TKA performed on 12-03-21. PCP is Kasia Dao. Primary payor is 1)Medicare 2)[facility] [place]. Met with patient this afternoon. Patient has been seen by therapy and is discharging home today. Patient reports that she has all needed DME and plans to do outpatient therapy in [place]. Patient has no concerns about her discharge today or safety at home. P: Home today. KJS Discharge Planning/Care Management CM Discharge Assessment Start: 12/04/21 15:05 Freq: Status: Active Protocol: Document 12/04/21 15:05 KJS (Rec: 12/04/21 15:06 KJS [id number]) Discharge Planning Assessment Assigned Agency Sales Representative [employer]ALBER[employer] Lanier Contact Information Walt Jackson (son) ph# [phone] Advance Directives? No Advance Directives on File No History Provided By Patient,Medical Record Prior Living Arrangements House Household Members family Independent with ADL's Yes Is patient alert and oriented? Yes Caregiver for Another No DME Already Rented / Owned FWW / Walker Patient/Family Preference OP PT Therapy Barriers to Discharge No Discharge Plan Home Transportation Arrangement Son can provide transport at d /c to home Whiteboard Updated in Patient Room with Yes name and ext. # of Agency Sales Representative Review Status In Process Next Review Type Continued Stay Review Pre-Anesthesia Assessment Start: 11/27/21 09:36 Freq: Status: Discharge Protocol: Document 11/27/21 09:37 CAB (Rec: 11/27/21 10:40 CAB [id number]) Pre-Anesthesia Assessment Preferred Name Magalis Patient Information Reviewed Via Phone Assessment Assessment Completed With Patient Diagnostic Results BMP/CMP,CBC,EKG,Urinalysis Comment Labs/ECG @ [facility] 10/30/21, COVID screen @ [facility] 12/02/21 Primary Care Provider Kasia Dao Seen Specialist in Last 12 Months Yes Specialist Seen Orthopedist Primary Language [place]ican Preferred Language [place]ican Aviculturist Required No Height 167.64 cm Weight 113.398 kg Body Mass Index (BMI) 40.3 Hearing Ability Normal Visual Assist Glasses Dentition Type Teeth, Natural Present,Dental Implants Barriers to Learning None Other Aids Yes: CPAP Hx Anesthesia Reactions No Hx Family Anesthesia Reaction No Hx Malignant Hyperthermia No Hx Blood Transfusions No Hx Blood Transfusion Reaction No Anesthesia Review Requested Yes: PAC courtesy re: Abnormal pre-op ECG Compliance Officer No alcohol intake never Smoking Status Never smoker Substance Use Type does not use Pain Present Pain Reported Musculoskeletal Symptoms Abnormal Gait,Difficulty Walking,Joint Pain History of Falling (Recent or History of Yes ) Patient is completely paralyzed or No completely immobile Mental Status Oriented to own ability Is patient on oxygen? No Does patient have SCHILLING/SOB No Hx Sleep Apnea Yes CPAP/BIPAP use prescribed and used routinely Will Bring CPAP/BIPAP DOS Yes Currently Taking a Beta Terence No Can You Climb a Flight of Stairs Without Yes SOB Hx Chest Pain No Hx SOB Yes: r/t PE approx 14 yars ago , nothing since Hx Syncope or Dizziness Yes: vertigo r/t ear being plugged up Anti-Coagulant Therapy No Has a Water Carter No Cardiac Testing No Hx Pacemaker/ICD No Pacemaker Rep Required? No Diet Type At Home Regular dysphagia No Bladder Pattern Incontinent Urinary Catheter Present No Hx Urinary Self Catheterization No Diabetes No Patient No Lactating No Hx Drug Resistant Organism No Presence of External or Internal Medical Yes: Vic IOLs, CPAP, left knee Devices Have you had any close contact with No someone diagnosed with COVID-19? Received a COVID vaccine? No Marital Status / Lives With none Prior Living Arrangements House Number of Floors (Floors) One Floor Support System Child/Children Does the Patient Have Assistance After Yes: Lives in a cabin on her Surgery son's property, son will assist with care at [place] Patient Discharge Plan Description Return Home Comment Pt not advised on length of stay per surgeon Feels Safe in Current Environment Yes Been Physically Hurt or Threatened By a No Person in Current Environment Do you have thoughts of harming yourself None or others? Are you currently considering suicide? No Do you have a plan to hurt yourself or No Plan others? Do You Have Any Spiritual Beliefs That No May Affect Your HC Choices? Do You Have Any Cultural Practices That No May Affect Your HC Choices? Comment Miranda/JOB Who Can We Speak to About Patient's Care Family, friends Identifying Code for Release of Patient Declines to issue Information Health Care Proxy/Next of Kin Walt (son) Health Care Proxy Emergency Contact Name Trace Mcbride and Walt Jackson Emergency Contact Phone Number Reed - [phone]; Walt Advance Directives? No Advance Directives on File No Power of Search Consultant No PAC Instructions Bring CPAP/BIPAP,Durable medical equipment,Medications to take/avoid,Nasal antibiotic ,No ETOH/petroleum product on skin DOS,NPO,Post-op transportation,Pre-surgical wash,Sturdy shoes/comfortable clothes,Do not bring valuables and remove jewelry
== END 2021-12-04 14:00 | disposition home or self-care (01) ==
LOC: OR 11:57 → AC 11:57
PROVIDERS: Family Provider Internal Medicine; PCP Student in an Organized Health Care Education/Training Program; Referring Provider Orthopaedic Surgery; Visit Provider Orthopaedic Surgery
PROC: 0SRC0JZ Replacement of Right Knee Joint with Synthetic Substitute, Open Approach (ICD-10-PCS; CPT 27447; principal; 2021-12-03 14:00)
DX: M17.11 Unilateral primary osteoarthritis, right knee (principal); I10 Essential (primary) hypertension; E78.5 Hyperlipidemia, unspecified; G47.33 Obstructive sleep apnea (adult) (pediatric); K21.9 Gastro-esophageal reflux disease without esophagitis; E66.01 Morbid (severe) obesity due to excess calories; Z68.41 Body mass index [BMI] 40.0-44.9, adult
CPT/HCPCS: 27447; 36415; 64450; 73560; 85014; 85018; 97116; 97161; C1776; C9290; J0171; J0690; J1100; J2250; J2405; J2704; J3010

== ENCOUNTER 2022-11-20 20:33 | Inpatient (IN) | payer MEDICARE, OTHER, SELFPAY ==
[2021-12-03 20:23] VITALS: BMI 40.3
[2022-11-20 20:44] VITALS: BP 153/67; PULSE 74; RESP 16; TEMP 36.8; O2SAT 96; BMI 37.1
--- NOTE | 2022-11-20 22:35 | ED_ITS ---
HPI - Skin/Abscess/Foreign Bdy General Chief complaint: Skin/Abscess/Foreign Body Stated complaint: lt foot swelling, red, hot Time Seen by Provider: 11/20/22 22:29 Source: patient, family, RN notes reviewed and old records reviewed Limitations: no limitations History of Present Illness HPI narrative: This is a 77-year-old on anticoagulated female with history of DVT and pulmonary emboli approximately 10 years ago, bilateral knee surgery 2 years ago. Patient states she has not felt well for about the past 2 days she is had a little h eadache kind of generally felt unwell got no fevers but had some decreased appetite and some loose stools. This morning she woke up and noticed some redness over her foot which has since extended up her leg almost to her knee. It is circumferential. She states she has had cellulitis in the past. She states she is also had DVTs. Patient denies chest pain or shortness of breath. No syncope. No nausea or vomiting. No black or bloody stools. Patient states pain in the foot when she touches it. She states redness has progressed quite quickly. Patient denies numbness, tingling or weakness. She states she was on Coumadin the 1st time she had a blood clot the 2nd time a different medication. She does not know why she had blood clots. She states she does not have an IVC filter. She is not sure how long she took the blood thinners. She states no daily prescriptions currently. She denies any other medical issues. She is had bilateral knee replacements 2 and 3 years ago. No tobacco, no alcohol, no illicit. She does have some chronic venous stasis changes and states it is very itchy she scratched it and had some small openings in her skin couple days ago. Related Data Home Medications Medication Instructions Recorded Confirmed cholecalciferol (vitamin D3) 25 25 mcg PO DAILY 07/23/20 05/14/22 mcg (1,000 unit) capsule (Vitamin D3) vitamin B complex 1 cap PO DAILY 07/23/20 05/14/22 ascorbic acid (vitamin C) 500 mg 500 mg PO DAILY 02/26/21 05/14/22 tablet magnesium 250 mg tablet 250 mg PO DAILY 02/26/21 05/14/22 zinc 50 mg tablet 50 mg PO DAILY 02/26/21 05/14/22 Allergies Allergy/AdvReac Type Severity Reaction Status Date / Time rivaroxaban [From XARELTO] Allergy Mild HIVES Verified 11/20/22 20:49 dabigatran etexilate AdvReac Unknown Reflux Verified 11/20/22 20:49 [From Pradaxa] Review of Systems Review of Systems ROS Unobtainable: All systems reviewed & are unremarkable except as noted in HPI and below Patient History Medical History 1+ pitting edema Arthritis Bilateral knee pain 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) Essential hypertension Excessive daytime sleepiness (~2008) Generalized osteoarthritis GERD without esophagitis History of falling Intentional weight loss 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 Mother No problems noted. 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 HEENT: Head normocephalic, atraumatic, EOMI, pupils reactive, face symmetric, mo ist mucous membranes NECK: Supple, full range of motion CARDIOVASCULAR: Regular rate and rhythm without murmurs, rubs or gallops. RESPIRATORY: Breath sounds equal bilaterally, no wheezes rales or rhonchi. ABDOMEN: Soft, nontender. Normoactive bowel sounds all 4 quadrants. No guarding or rebound, rigidity, no mass : No CVA tenderness EXTREMITIES: Normal range of motion, no clubbing, positive for bilateral lower extremity edema left greater than right. Chronic venous stasis changes bilaterally. Patient has some small very superficial open areas on the anterior shepard of the left. There is erythema with warmth of the foot standing over the ankle and up to the knee with small patches extending over to the patella. Mildly tender to touch. Normal range of motion. Normal sensation. 2+ dorsalis pedis both sides. Neurovascularly intact NEUROLOGICAL: Cranial nerves II through XII grossly intact. Moving all extremities SKIN: Warm, dry, no petechiae. Initial Vital Signs Initial Vital Signs: Vital Signs Temperature 98.2 F 11/20/22 20:44 Pulse Rate 74 11/20/22 20:44 Respiratory Rate 16 11/20/22 20:44 Blood Pressure 153/67 H 11/20/22 20:44 Pulse Oximetry 96 11/20/22 20:44 Oxygen Delivery Method Room Air 11/20/22 20:44 Course Orders Ordered: ED Orders 11/20/22 22:10 CBC Auto Diff [Complete Blood Count AUTO DIFF] Stat CMP [Comprehensive Metabolic Panel] Stat Lactate (Lactic Acid) Stat Lipase Stat Procalcitonin Stat 11/20/22 22:44 periph venous low extrem rt Stat 11/20/22 23:45 Blood Culture Stat 11/21/22 00:38 Education, smoking cessation ONGOING 11/21/22 00:42 CRP [C-Reactive Protein Quant] Urgent Magnesium Urgent 11/21/22 00:44 Consult to Dietitian, Adult Routine Consult to Occupational Therapy Evaluate & Treat Consult to Physical Therapy Evaluate & Treat Urinalysis and Microscopic Urgent 11/21/22 00:51 RT Consult Eval and Treat PRN 11/21/22 03:10 MRSA (Nasal) PCR Urgent 11/21/22 05:00 Complete Blood Count AUTO DIFF DAILY Comprehensive Metabolic Panel DAILY Lactate (Lactic Acid) Routine 11/22/22 05:00 Complete Blood Count AUTO DIFF DAILY Comprehensive Metabolic Panel DAILY 11/23/22 05:00 Complete Blood Count AUTO DIFF DAILY Comprehensive Metabolic Panel DAILY 11/24/22 05:00 Complete Blood Count AUTO DIFF DAILY Comprehensive Metabolic Panel DAILY Acetaminophen (Acetaminophen 325 Mg Tablet) 650 mg PO Q6H PRN PRN Reason: Fever/Mild Pain (1-5 Al Hydrox/Mg Hydrox/Simethicone (Mag Hydrox/Alum/Simeth 30 Ml Udc) 30 ml PO Q6HR PRN PRN Reason: Dyspepsia Last Admin: 11/21/22 01:11 Dose: 30 ml Documented By: DOM Calcium Carbonate (Calcium Carbonate 500 Mg Tab) 1,000 mg PO Q4HR PRN PRN Reason: Dyspepsia Enoxaparin Sodium (Enoxaparin 30 Mg/0.3 Ml Syringe) 30 mg SUBCUT DAILY [facility] Sodium Chloride (Normal Saline 0.9%) 1,000 mls @ 80 mls/hr IV CONT TRINITY Last Admin: 11/21/22 01:58 Dose: 80 mls/hr Documented By: DOM Cefazolin Sodium 1 gm/ Sodium (Chloride) 100 mls @ 200 mls/hr IV Q8H [facility] Last Infusion: 11/21/22 01:58 Dose: 0 mls/hr Documented By: Admin: 11/21/22 01:11 Dose: 200 mls/hr Documented By: DOM Naloxone HCl (Naloxone 0.4 Mg/Ml Vial) 0.2 mg IV Q2MIN PRN PRN Reason: Opiate Reversal Ondansetron HCl (Ondansetron 4 Mg Odt) 4 mg PO Q8HR PRN PRN Reason: Nausea And Vomiting Last Admin: 11/21/22 01:11 Dose: 4 mg Documented By: DOM Oxycodone HCl (Oxycodone Ir 5 Mg Tablet) 5 mg PO Q3H PRN PRN Reason: Pain, Moderate (4-10 Sennosides (Sennosides 8.6 Mg Tablet) 17.2 mg PO BEDTIME [facility] Discontinued Medications Clindamycin Phosphate 900 mg/ (Sodium Chloride) 106 mls @ 106 mls/hr IV NOW ONE Stop: 11/20/22 22:46 Last Infusion: 11/21/22 00:13 Dose: 0 mls/hr Documented By: Admin: 11/20/22 23:53 Dose: 106 mls/hr Documented By: DOM Potassium Chloride (Potassium Chloride 20 Meq Tab) 40 meq PO NOW ONE Stop: 11/21/22 02:05 Last Admin: 11/21/22 02:56 Dose: 40 meq Documented By: CB Vital Signs Vital signs: Vital Signs - 8 hr 11/20/22 20:44 11/21/22 01:19 Temperature 98.2 F Pulse Rate 74 65 Respiratory Rate 16 18 Blood Pressure 153/67 H 141/63 H Pulse Oximetry 96 98 Oxygen Delivery Method Room Air Room Air MDM - Skin/Abscess/Foreign Bdy Lab Data 11/20/22 22:10 11/20/22 22:10 Labs: Lab Results 11/20/22 11/20/22 11/20/22 Range/Units 22:10 22:10 22:10 WBC 11.2 H (4.5-11.0) X10^3/uL RBC 3.49 L (4.0-5.2) X10^6/uL Hgb 11.3 L (12.0-16.0) g/dL Hct 32.9 L (36-46) % MCV 94.0 (80-100) fL MCH 32.2 (26-34) PG MCHC 34.3 (30-36) % RDW 13.5 (11.6-14.8) % Plt Count 184 (150-400) X10^3/uL Neut % (Auto) 76.2 H (50-75) % Lymph % (Auto) 15.3 L (25-40) % [place] % (Auto) 7.1 (3-14) % Eos % (Auto) 0.9 L (2-4) % Baso % (Auto) 0.5 (0-2) % Neut # (Auto) 8500 H (2866-8333) /uL Lymph # (Auto) 1700 (1538-4014) /uL [place] # (Auto) 800 (0-900) /uL Eos # (Auto) 100 (0-450) /uL Baso # (Auto) 100 (0-100) /uL Sodium 133 L (137-145) mmol/L Potassium 3.2 L (3.4-5.1) mmol/L Chloride 100 (98-107) mmol/L Carbon Dioxide 25 (22-32) mmol/L BUN 42 H (7-17) mg/dL Creatinine 1.38 H (0.52-1.04) mg/dL Estimated GFR 39 L (>60) mL/min BUN/Creatinine Ratio 30.4 H (6-22) Glucose 112 H (80-110) mg/dL Lactate 0.8 (0.7-2.1) mmol/L Calcium 8.4 (8.4-10.2) mg/dL Magnesium (1.6-2.3) mg/dL Total Bilirubin 0.8 (0.2-1.3) mg/dL AST 33 (14-36) IU/L ALT 28 (<35) IU/L Alkaline Phosphatase 81 (38-126) U/L C-Reactive Protein (<1.0) mg/dL Total Protein 7.0 (6.3-8.2) g/dL Albumin 3.5 (3.5-5.0) g/dL Globulin 3.5 (1.7-4.1) g/dL Albumin/Globulin Ratio 1.0 (1.0-2.8) Lipase 108 (23-300) U/L Procalcitonin 1.48 H (<0.5) ng/mL 11/20/22 Range/Units 22:10 WBC (4.5-11.0) X10^3/uL RBC (4.0-5.2) X10^6/uL Hgb (12.0-16.0) g/dL Hct (36-46) % MCV (80-100) fL MCH (26-34) PG MCHC (30-36) % RDW (11.6-14.8) % Plt Count (150-400) X10^3/uL Neut % (Auto) (50-75) % Lymph % (Auto) (25-40) % [place] % (Auto) (3-14) % Eos % (Auto) (2-4) % Baso % (Auto) (0-2) % Neut # (Auto) (7113-2375) /uL Lymph # (Auto) (4073-4757) /uL [place] # (Auto) (0-900) /uL Eos # (Auto) (0-450) /uL Baso # (Auto) (0-100) /uL Sodium (137-145) mmol/L Potassium (3.4-5.1) mmol/L Chloride (98-107) mmol/L Carbon Dioxide (22-32) mmol/L BUN (7-17) mg/dL Creatinine (0.52-1.04) mg/dL Estimated GFR (>60) mL/min BUN/Creatinine Ratio (6-22) Glucose (80-110) mg/dL Lactate (0.7-2.1) mmol/L Calcium (8.4-10.2) mg/dL Magnesium 2.1 (1.6-2.3) mg/dL Total Bilirubin (0.2-1.3) mg/dL AST (14-36) IU/L ALT (<35) IU/L Alkaline Phosphatase (38-126) U/L C-Reactive Protein 24.1 H (<1.0) mg/dL Total Protein (6.3-8.2) g/dL Albumin (3.5-5.0) g/dL Globulin (1.7-4.1) g/dL Albumin/Globulin Ratio (1.0-2.8) Lipase (23-300) U/L Procalcitonin (<0.5) ng/mL Imaging Data US - DVT: Radiologist's Impression: Close Vascular Ultrasound (Signed) Erick Lopez - 11/20/22 Knee X-Ray (Signed) Alicia Frazier - 12/03/21 Telemetry Strips 12/03/21 DEXA Result 10/30/21 Bone Densitometry 10/30/21 Knee MRI (Signed) Phillip Perry - 10/15/21 Vascular Ultrasound (Signed) Austen Mccurdy - 08/06/20 Knee X-Ray (Signed) Aki Teresa - 07/24/20 Outside EKG 06/23/20 Knee MRI (Signed) Phillip Perry - 06/21/20 Vascular Ultrasound (Signed) Izabel Greene - 12/30/[address] (Signed) Austen Mccurdy - 12/28/18 Chest X-Ray (Signed) Juan M Mendoza - 12/28/[address] (Signed) Alicia Frazier - 02/26/18 Chest X-Ray (Signed) Chuy De Leon - 02/26/[address] [id number] Ultrasound Report Signed Patient: Jazlyn Jackson MR#: [id number] : 1945 Acct:[id number] Age/Sex: 77 / F Date of Service: 11/20/22 Loc: ED Accession Number: [id number] ?? Procedure: US periph venous low extrem rt Ordering Provider: Penelope Bryan D.O. PROCEDURE:? US PERIPH VENOUS LOW EXTREM RT ? INDICATIONS:? RED, HOT, SWOLLEN. HISTORY OF DEEP VEIN THROMBOSIS. ? TECHNIQUE:? Real-time imaging, as well as color and pulse Doppler interrogation, were performed of the lower extremity deep veins from the inguinal ligament to the popliteal fossa.? ? COMPARISON:? None. ? FINDINGS:? The common femoral, femoral and popliteal veins are normally compressible, and free of intraluminal thrombus.? Color and pulse Doppler demonstrate normal phasic intraluminal flow.? There is normal augmentation response to distal compression maneuver. ? ? Multiple enlarged left inguinal lymph nodes are demonstrated, measuring up to 1.5 cm in short axis.? These demonstrate preserved fatty sheryl. ? There is a loculated fluid collection in the popliteal fossa suggestive of a small Austin's cyst. ? IMPRESSION:? ? 1. No evidence of deep venous thrombosis in the left lower extremity. ? 2. Enlarged left inguinal lymph nodes with preserved fatty sheryl are nonspecific but likely reactive.? ? ? Dictated by: Erick Lopez M.D. on 11/20/2022 at 23:47 ? ? Approved by: Erick Lopez M.D. on 11/20/2022 at 23:48?? [facility] Narrative Medical decision making narrative: 77-year-old female presents with complaint of right leg swelling pain and redness and warmth. Appears to be cellulitic but patient has had blood clots in the past she is not currently anticoagulated she can not tell me why she had those blood clots in the past. DVT studies negative, patient has slight leukocytosis, leftward shift positive procalcitonin, negative lactate, appears to have an PEDRO creatinine 1.38 was 0.76 on the 18th. Sodium is 133 potassium of 3 2 BUN 42. LFTs are otherwise negative. Cultures were obtained. Patient received clindamycin. Discussed with ANUJ Blevins who accepts for observation. Discharge Plan Departure Patient Disposition: Admitted as Observation Clinical Impression: Cellulitis of left leg, PEDRO (acute kidney injury) Admit Date/Time: 11/21/22 01:38 Admit Provider: Ericka Blevins
--- NOTE | 2022-11-20 22:44 | DI.US.S_ITS ---
PROCEDURE: US PERIPH VENOUS LOW EXTREM RT INDICATIONS: RED, HOT, SWOLLEN. HISTORY OF DEEP VEIN THROMBOSIS. TECHNIQUE: Real-time imaging, as well as color and pulse Doppler interrogation, were performed of the lower extremity deep veins from the inguinal ligament to the popliteal fossa. COMPARISON: None. FINDINGS: The common femoral, femoral and popliteal veins are normally compressible, and free of intraluminal thrombus. Color and pulse Doppler demonstrate normal phasic intraluminal flow. There is normal augmentation response to distal compression maneuver. Multiple enlarged left inguinal lymph nodes are demonstrated, measuring up to 1.5 cm in short axis. These demonstrate preserved fatty sheryl. There is a loculated fluid collection in the popliteal fossa suggestive of a small Austin's cyst. IMPRESSION: 1. No evidence of deep venous thrombosis in the left lower extremity. 2. Enlarged left inguinal lymph nodes with preserved fatty sheryl are nonspecific but likely reactive. Dictated by: Erick Lopez M.D. on 11/20/2022 at 23:47 Approved by: Erick Lopez M.D. on 11/20/2022 at 23:48
[2022-11-20 23:31] LABS: Add Manual Diff / Slide Review NO; Basophils Absolute Auto 100 /uL (0-100); Basophils Percent Auto 0.5 % (0-2); Eosinophils Absolute Auto 100 /uL (0-450); Eosinophils Percent Auto 0.9 % (2-4); Hematocrit 32.9 % (36-46); Hemoglobin 11.3 g/dL (12.0-16.0); Lymphocytes Absolute Auto 1700 /uL (1100-4500); Lymphocytes Percent Auto 15.3 % (25-40); Mean Corpuscular HGB Conc 34.3 % (30-36); Mean Corpuscular Hemoglobin 32.2 PG (26-34); Monocytes Absolute Auto 800 /uL (0-900); Monocytes Percent Auto 7.1 % (3-14); Neutrophils Absolute Auto 8500 /uL (1500-7000); Neutrophils Percent Auto 76.2 % (50-75); Platelet Count 184 X10^3/uL (150-400); Red Blood Cell Count 3.49 X10^6/uL (4.0-5.2); Red Cell Distribution Width 13.5 % (11.6-14.8); White Blood Cell Count 11.2 X10^3/uL (4.5-11.0)
[2022-11-20 23:33] LABS: Lactate (Lactic Acid) 0.8 mmol/L (0.7-2.1)
[2022-11-20 23:34] LABS: Alanine Aminotransferase 28 IU/L (<35); Albumin 3.5 g/dL (3.5-5.0); Alkaline Phosphatase 81 U/L (38-126); Aspartate Aminotransferase 33 IU/L (14-36); BUN Creatinine Ratio 30.4 (6-22); Bilirubin Total 0.8 mg/dL (0.2-1.3); Blood Urea Nitrogen 42 mg/dL (7-17); Calcium 8.4 mg/dL (8.4-10.2); Carbon Dioxide 25 mmol/L (22-32); Chloride 100 mmol/L (98-107); Estimated Glomerular Filt Rate 39 mL/min (>60); Globulin 3.5 g/dL (1.7-4.1); Glucose 112 mg/dL (80-110); HEMOLYSIS < 15 (0-50); Lipase 108 U/L (23-300); Potassium 3.2 mmol/L (3.4-5.1); Sodium 133 mmol/L (137-145)
[2022-11-20 23:50] LABS: Procalcitonin 1.48 ng/mL (<0.5)
[2022-11-20] MEDS: CLINDAMYCIN 900 MG in SODIUM CHLORIDE 0.9% 100 ML 106 MG IV (23:53)
[2022-11-21] VITALS (7 sets, daily range): BP systolic 106–141; BP diastolic 57–69; PULSE 59–78; RESP 16–20; TEMP 36.4–37.1; O2SAT 94–99; BMI 37.1
--- NOTE | 2022-11-21 00:52 | PM.HP.1 ---
History of Present Illness History of Present Illness Date Patient Seen: 11/21/22 Time Patient Seen: 00:53 Chief complaint: Cellulitis LLE, PEDRO Narrative: Jazlyn Jackson is a jayde 77-year-old female with a history of morbid obesity, bilateral knee replacement, chronic LE venous stasis, MARJAN w/bipap, cellulitis, LE edema, and remote HX of DVT & PE no longer on anticoagulation who presented to the ED with left lower extremity swelling and redness. ?Patient c/o headache, feeling unwell, decreased appetite, and loose stools for the past 2 days. Noted redness, warmth, and swelling over her LT foot this morning upon waking, which has since extended up her leg almost to her knee, it is circumferential. Patient denies chest pain or shortness of breath, cough, upper respiratory symptoms, syncope, abdominal pain, nausea, vomiting, black or bloody stools, numbness, tingling or weakness.? Patient does not know the reason for previous DVT/PE, had previously been prescribed Coumadin initially then change to a DOAC.?She states she does not have an IVC filter.?In ED she denied any other medical HX or daily meds.? No tobacco, no alcohol, no illicit.? She does have some chronic venous stasis changes and states it is very itchy she scratched it and had some small openings in her skin couple days ago. Patient denies history of MRSA, no recent antibiotic use, no recent hospitalization. Patient is not septic on admit. She notes on admit she is feeling better, and swelling seems to be improving. Admit vitals temp 98.2?, 153/67, 74, 16, 96. Patient has a mild WBC 11 with left shift neutrophils 8500, HGB 11/HCT 32, Na 133, potassium 3.2, patient has an PEDRO previous labs from 10/30/2021: BUN 24, creatinine 0.76, GFR> 60. Today BUN 42, creatinine 1.38, GFR 39. Lactate and bili are normal, procalcitonin 1.48. Patient admitted for left lower extremity cellulitis with PEDRO. 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 Mother No problems noted. 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 [place] (both parents work) Meds Home Medications and Allergies Home Medications Medication Instructions Recorded Confirmed Type cholecalciferol (vitamin D3) 25 25 mcg PO DAILY 07/23/20 05/14/22 History mcg (1,000 unit) capsule (Vitamin D3) vitamin B complex 1 cap PO DAILY 07/23/20 05/14/22 History ascorbic acid (vitamin C) 500 mg 500 mg PO DAILY 02/26/21 05/14/22 History tablet magnesium 250 mg tablet 250 mg PO DAILY 02/26/21 05/14/22 History zinc 50 mg tablet 50 mg PO DAILY 02/26/21 05/14/22 History Allergies Allergy/AdvReac Type Severity Reaction Status Date / Time rivaroxaban [From XARELTO] Allergy Mild HIVES Verified 11/20/22 20:49 dabigatran etexilate AdvReac Unknown Reflux Verified 11/20/22 20:49 [From Pradaxa] Review of Systems Review of Systems Narrative: All 12 point systems reviewed with the patient and are negative except otherwise documented. Exam Vital Signs (past 8 hours): - 11/20/22 20:44 Temperature 98.2 F Pulse Rate 74 Respiratory Rate 16 Blood Pressure 153/67 H Pulse Oximetry 96 Oxygen Delivery Method Room Air Oxygen Delivery Method Room Air Narrative Exam Narrative: General: Patient is a well-developed, well-nourished in no distress at this time. HEENT: Normocephalic, atraumatic, extraocular muscles intact, oral pharynx is clear and mucous membranes are moist. Neck is supple and symmetric, trachea is midline, no adenopathy, no thyroid enlargement, nontender, no masses palpated. Negative for JVD Chest: Normal AP diameter and contour without kyphoscoliosis, Equal chest rise without nasal flaring, retractions, tachypneic or labored breathing. Lungs: Auscultation of all lung arora are clear without adventitious sounds, wheezes, rhonchi, or rales. Cardio: regular rate and rhythm without murmur, rubs, or gallops, no carotid bruit, no cardiac pulsations present. Abdomen: Soft nontender, negative for organomegaly, or masses. Bowel sounds are present in all 4 quadrants without guarding or rebound, no CVA tenderness. Musculoskeletal: Muscle strength and tone are equal, no deformity, crepitus, effusions, cyanosis, clubbing present. Bilateral edema left greater than right, chronic bilateral venous stasis. Full range of motion intact radial and pedal pulses are normal. Left lower extremity: some small very superficial open areas on the anterior shepard of the left.? There is erythema with warmth of the foot standing over the ankle and up to the knee with small patches extending over to the patella.? Mildly tender to touch. Skin: Warm dry without rashes. Neuro: Alert and orientated x3, moves all extremities, sensation to touch intact, no gross deficits noted of cranial nerves. Psych: Patient has a well-kept appearance, appropriate affect, mental status attitude thought context and judgment are appropriate for age. Objective Labs 11/20/22 22:10 11/20/22 22:10 Labs: Laboratory Results - last 24 hr 11/20/22 11/20/22 11/20/22 22:10 22:10 22:10 WBC 11.2 H RBC 3.49 L Hgb 11.3 L Hct 32.9 L MCV 94.0 MCH 32.2 MCHC 34.3 RDW 13.5 Plt Count 184 Neut % (Auto) 76.2 H Lymph % (Auto) 15.3 L Linn % (Auto) 7.1 Eos % (Auto) 0.9 L Baso % (Auto) 0.5 Neut # (Auto) 8500 H Lymph # (Auto) 1700 Linn # (Auto) 800 Eos # (Auto) 100 Baso # (Auto) 100 Sodium 133 L Potassium 3.2 L Chloride 100 Carbon Dioxide 25 BUN 42 H Creatinine 1.38 H Estimated GFR 39 L BUN/Creatinine Ratio 30.4 H Glucose 112 H Lactate 0.8 Calcium 8.4 Total Bilirubin 0.8 AST 33 ALT 28 Alkaline Phosphatase 81 Total Protein 7.0 Albumin 3.5 Globulin 3.5 Albumin/Globulin Ratio 1.0 Lipase 108 Procalcitonin 1.48 H Assessment & Plan Assessment & Plan narrative: Jazlyn Jackson is a 77-year-old female with a history of morbid obesity, bilateral knee replacement, MARJAN, DVT & PE no longer on anticoagulation who presented to the ED with left lower extremity swelling and redness. acute onset/rapidly progressing left lower extremity cellulitis, with a white count w/ left shift and PEDRO requiring hospitalization, for electrolyte correction IV hydration, and IV antibiotics. # cellulitis, left lower extremity, acute, present on admission Patient is stable, without sepsis Patient given clindamycin in ED History of chronic venous stasis bilateral, cellulitis and edema For coverage for beta-hemolytic Streptococcus and Staph aureus, MSSA: Cefazolin-pending culture results WBC 11 with left shift neutrophils 8500, procalcitonin 1.48, lactate negative ordered CRP, MRSA, repeat Proc blood cultures pending Elevate extremity per patient comfort Vascular ulcers sound negative for DVT, no chest pain or shortness of breath Pain Management # PEDRO, acute, present on admission labs from 10/30/2021: BUN 24, creatinine 0.76, GFR> 60. Admit: BUN 42, creatinine 1.38, GFR 39. Gentle rehydration NS # hypokalemia, mild, acute, present on admission Potassium 3.2-ordered 40 mEq p.o. Trend electrolytes # Obesity, moderate, acute on chronic, present on admission BMI 37.1 dietary consult ordered regarding nutritional education and information for dietary, lifestyle, exercise, and weight changes. the patient is at much higher risk for medical and surgical complications due to obesity as it relates to chronic illnesses:, and acute illness. The patient's obesity increases the difficulty and complexity of medical and/or surgical interventions, management and increases the chances of poor outcome such as morbidity and mortality as well as impaired wound healing. # MARJAN with BiPAP, chronic, present on admission Ordered respiratory consult for BiPAP # history of DVT/PE, present on admission Patient is no longer on anticoagulation, provocation unknown Code status:Full Surrogate decision maker: Son'abril Mcbride & Walt Jackson DVT/VTE prophylaxis: Lovenox and right SCD Disposition: Patient admitted for observation expected length of stay not to exceed 2 midnights I have utilized all available immediate resources to obtain, update, or review the patient's current medications. I confirmed that the patient's advanced care plan is present, Code status is documented and/or surrogate decision maker is listed in the patient's medical record. I have personally reviewed patient's chart notes from PCP, specialists, diagnostic imaging, and laboratory results. Scores GCS [place] coma scale eye opening: Spontaneous [place] coma scale verbal response: Orientated [place] coma scale motor response: Obey commands Carol coma scale total score: 15 SOFA PaO2/FIO2: >=400 mmHg Platelets: >= 150 Bilirubin: < 1.2 mg/dL Hypotension: MAP >= 70 mmHg [place]ore Coma Scale: 15 Renal: Creatinine 1.2-1.9 mg/dL SOFA Score: 1 Wells' Criteria for PE Clinical signs and symptoms of DVT: No PE is #1 Dx or equally likely: No Heart rate > 100: No Immobilization at least 3 days or surg in previous 4 weeks: No History of PE or DVT: Yes Hemoptysis: No Malignancy w/Treatment within 6 months or palliative: No Wells' PE Score total: 1.5
[2022-11-21] MEDS: MAG HYDROX/ALUM/SIMETH 30 ML UDC PO (01:11)
[2022-11-21] MEDS: CEFAZOLIN VIAL 1 GM in SODIUM CHLORIDE 0.9% 100 ML IV ×3 (01:11→17:08)
[2022-11-21] MEDS: ONDANSETRON 4 MG ODT PO (01:11)
[2022-11-21 01:44] LABS: Magnesium 2.1 mg/dL (1.6-2.3)
[2022-11-21 01:45] LABS: C-Reactive Protein Quant 24.1 mg/dL (<1.0)
[2022-11-21] MEDS: SODIUM CHLORIDE 0.9% 1,000 ML 80 ML IV ×2 (01:58→21:56)
[2022-11-21] MEDS: POTASSIUM CHLORIDE 20 MEQ TAB 40 MEQ PO (02:56)
[2022-11-21 04:27] LABS: MRSA (Nasal) PCR Not Detected (Not Detect)
[2022-11-21 06:26] LABS: Add Manual Diff / Slide Review NO; Basophils Absolute Auto 0 /uL (0-100); Basophils Percent Auto 0.4 % (0-2); Eosinophils Absolute Auto 100 /uL (0-450); Eosinophils Percent Auto 1.6 % (2-4); Hemoglobin 11.3 g/dL (12.0-16.0); Lymphocytes Absolute Auto 1000 /uL (1100-4500); Lymphocytes Percent Auto 14.6 % (25-40); Mean Corpuscular HGB Conc 34.1 % (30-36); Mean Corpuscular Hemoglobin 32.1 PG (26-34); Monocytes Absolute Auto 600 /uL (0-900); Monocytes Percent Auto 8.5 % (3-14); Neutrophils Absolute Auto 5300 /uL (1500-7000); Neutrophils Percent Auto 74.9 % (50-75); Platelet Count 169 X10^3/uL (150-400); Red Blood Cell Count 3.51 X10^6/uL (4.0-5.2); Red Cell Distribution Width 13.3 % (11.6-14.8); White Blood Cell Count 7.1 X10^3/uL (4.5-11.0)
[2022-11-21 06:35] LABS: Lactate (Lactic Acid) 0.7 mmol/L (0.7-2.1)
[2022-11-21 06:36] LABS: Alanine Aminotransferase 27 IU/L (<35); Albumin 3.3 g/dL (3.5-5.0); Alkaline Phosphatase 74 U/L (38-126); Aspartate Aminotransferase 31 IU/L (14-36); BUN Creatinine Ratio 31.3 (6-22); Bilirubin Total 0.6 mg/dL (0.2-1.3); Blood Urea Nitrogen 35 mg/dL (7-17); Calcium 8.3 mg/dL (8.4-10.2); Carbon Dioxide 27 mmol/L (22-32); Chloride 104 mmol/L (98-107); Estimated Glomerular Filt Rate 51 mL/min (>60); Globulin 3.3 g/dL (1.7-4.1); Glucose 96 mg/dL (80-110); HEMOLYSIS < 15 (0-50); Potassium 3.5 mmol/L (3.4-5.1); Sodium 136 mmol/L (137-145); Total Protein 6.6 g/dL (6.3-8.2)
[2022-11-21 07:12] LABS: Appearance Urine UA CLEAR; Bilirubin Urine UA NEGATIVE (NEGATIVE); Color Urine UA YELLOW; Glucose Urine UA NEGATIVE (Negative); Ketones Urine UA NEGATIVE (NEGATIVE); Leukocyte Esterase Urine UA NEGATIVE (NEGATIVE); Nitrite Urine UA NEGATIVE (Negative); Occult Blood Urine UA NEGATIVE (Negative); Protein Urine UA NEGATIVE (Negative); Urobilinogen Urine UA 0.2 E.U./dL (0.2)
[2022-11-21 07:27] LABS: pH Urine UA 5.5 (4.5-8.0)
[2022-11-21 07:28] LABS: Bacteria Urine None Seen; Culture Indicated Urine Cult Not Indicated; RBC Urine None Seen (0-5/HPF); Squamous Epithelial Cell Urine None Seen (0-5/HPF); Urine Comments Microscopic Normal; WBC Urine None Seen (0-5/HPF)
[2022-11-21] MEDS: ENOXAPARIN 30 MG/0.3 ML SYRINGE SUBCUT (08:21)
--- NOTE | 2022-11-21 10:58 | OT.IPNOTE ---
OT eval and treat order received. Chart reviewed and discussed case with patient and P.T. Pt appears to be at her baseline for ADLs. Will defer functional mobility to P.T. at this time. Will discharge order.
--- NOTE | 2022-11-21 11:44 | CM.DANOTE ---
DCP: Case received, EMR reviewed and met with patient. Introduced self and role. Was able to obtain information regarding patient's baseline activity status at home prior to admission, as well as her current living situation. DCP assessment completed with information currently available. Patient is a 77 female who admitted early this morning to the care of the hospitalist team. PCP:[place] [facility] (can't remember the name of he provider). Payer: confirmed: Medicare/[employer]. Patient came to the hospital via private vehicle secondary to complaints of not feeling well for the last several days, having headaches, decreased appetite. Patient had come to the hospital with noted right leg swelling pain, and redness and warmth. Notes indicate that patient has had blood clots in the past. Patient's DVT test negative. Patient holds diagnosis of celulllitis, left lower extremity. Met with patient in her room. She is alert and oriented, pleasant. She was sitting up in bed. Confirmed that she resides in [place] on her son, Walt[place]ab[place] property in a cabin. Her other son, Reed, lives about a block away. She stated she is independent, since she had her knee surgery during the pandemic, she has improved her mobility. She drives as well. Patient indicated that she used to see Dr. Badillo, since she retired, was given a new provider at the [facility], can't remember the name. She stated, I'm normally healthy, I don't even take any meds. P: DCP to continue to follow. Patient should be able to go home when stable on oral antibiotics, discussed at team rounds, but will follow closely for any needs. Donya Keith RN/Laborer [employer] Maintenance Discharge Planning/Care Management CM Discharge Assessment Start: 11/21/22 11:39 Freq: Status: Active Protocol: Document 11/21/22 11:39 (Rec: 11/21/22 11:43 [id number]) Discharge Planning Assessment Assigned Certified Surgical Tech/First Assistant Donya Keith RN/Laborer [employer] Maintenance Advance Directives? No Advance Directives on File No History Provided By Patient,Medical Record Prior Living Arrangements House Household Members family Type of transporation used prior to Drives own vehicle admit Independent with ADL's Yes Is patient alert and oriented? Yes Caregiver for Another No Patient/Family Preference OP PT Therapy Barriers to Discharge No Comment Has support system in the community, resides in a cabin on her son's property, other son lives a block away. Discharge Plan Home Transportation Arrangement Son can provide transport at d /c to home Referrals Initiated None needed Whiteboard Updated in Patient Room with Yes name and ext. # of Certified Surgical Tech/First Assistant Review Status In Process Next Review Type Continued Stay Review
--- NOTE | 2022-11-21 12:29 | PT.IIE ---
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 Mixed hyperlipidemia Morbid obesity with BMI of 40.0-44.9, adult Nocturnal hypoxemia Obstructive sleep apnea of adult (~2008) Other pulmonary embolism with acute cor pulmonale Primary osteoarthritis of left knee Pulmonary emboli (~2007) Seasonal allergies Stasis dermatitis Venous insufficiency Physical Therapy Inpatient Evaluation/Re-Eval M1 PT/OT-IP Prior Functional Status Start: 11/21/22 12:09 Freq: NEEDED Status: Active Protocol: Document 11/21/22 12:10 ES (Rec: 11/21/22 12:29 ES [id number]) Medical Review Prior Functional Status Medical History Reviewed Yes Diet/Fluid Consistency Regular Communication Indep Mobility and Gait Indep Activities of Daily Living and IADL's Indep Prior Functional Level (Other details) Was doing pool exercise weekly . Able to drive. Social History Household Members family,none Living Arrangements House Number of Floors (Floors) One Floor Number of Stairs To Enter/Railing? 3 with rail Home Equipment Front Wheel Walker,Straight Cane Employment Status Retired Additional Social History Comment Patient lives in a cabin on the same property as her son. M2 PT-IP Current Condition Start: 11/21/22 12:09 Freq: NEEDED Status: Active Protocol: Document 11/21/22 12:10 ES (Rec: 11/21/22 12:29 ES [id number]) Physical Therapy Current Condition Current Condition Evaluation Date 11/21/22 Treatment Diagnosis LLE cellulitis Onset Date 11/21/22 M3 PT-IP Subjective Start: 11/21/22 12:09 Freq: NEEDED Status: Active Protocol: Document 11/21/22 12:10 ES (Rec: 11/21/22 12:29 ES [id number]) Subjective Physical Therapy Visit Type Type Initial Evaluation Visit Start Time 09:20 Visit Stop Time 09:38 Total Visit Minutes 18 Physical Therapy Visit Comments Patient Comments Patient alert in bed, agreeable to work with PT. Stated she hasn't had much problem walking as her feet don't hurt to stand on them, but hasn't been out of bed much in the past 3 days. M4 PT-IP Mobility and Gait Start: 11/21/22 12:09 Freq: NEEDED Status: Active Protocol: Document 11/21/22 12:10 ES (Rec: 11/21/22 12:29 ES [id number]) PT-Bed Mobility Assessment Supine to Sit Supine to Sit Independent Sit to Supine Sit to Supine Independent Scooting Scooting to Edge of Bed Independent Scooting Up and Down in Bed Independent PT-Transfer Assessment Sit to and From Stand Sit to and from Stand Standby Assistance,Use of Upper Extremities Transfers Transfer Destination Chair Transfer Technique Ambulated Transfer Ability Level of Assist Standby Assistance,Use of Upper Extremities Comments Mobility Comments Some unsteadiness noted without AD, recommended she use FWW for safety while getting back her strength and balance. Gait Assessment Gait Gait Assistance Required: Standby Assistance Distance (Feet) 300 Assistive Devices Assistive Device None,Front Wheeled Walker Comments Gait Comments Patient initially ambulated with FWW due to mild unsteadiness in standing, was able to demonstrate independence with this. Then trialed ambulation without FWW and had slight increase in postural sway and path deviation, so recommended she continue to use FWW for now to reduce fall risk. Stair Climbing Assessment Evaluation Level of Assist On Stairs Independent Devices Stair Climbing Assistive Devices Left Railing Technique/Endurance Stair Climbing Direction Ascend and Descend Stair Climbing Technique Step Over Step,Step to Step Number of Steps Climbed 3 Query Text: Stair Climbing Set # Repetitions (reps) 2 Comments Stair Climbing Comments Performed step over step for ascending, step to step for descending without LOB using single rail. PT-Balance Assessment Sitting Balance and Reactions Static Sitting Balance Ability Normal Dynamic Sitting Balance Ability Normal Standing Balance and Reactions Static Standing Balance Ability Good Dynamic Standing Balance Ability Fair Device Used None Balance Tests Single Limb Standing <3 seconds Tandem Standing <3 seconds Comments Other Balance Tests/Deviations/Treatment Increased postural sway with : standing feet together and semi-tandem with eyes open. M5 PT-IP Objective Assessments Start: 11/21/22 12:09 Freq: NEEDED Status: Active Protocol: Document 11/21/22 12:10 ES (Rec: 11/21/22 12:29 ES [id number]) Orientation Orientation/Cognition Level of Alertness Alert Orientation Name,Age,Birthday,Month,Date, Year,Day of Week,Place, Situation Language Function Ability No Deficits Noted Safety Awareness Understands Safety Issues Memory Description No Deficits Noted Gross Range of Motion Upper Extremity ROM Assessment Within Functional Limits Lower Extremity ROM Assessment Within Functional Limits Strength Upper Extremity Strength Assessment Within Functional Limits Lower Extremity Strength Assessment Within Functional Limits Coordination Assessment Gross Coordination Gross Coordination WNL M6 PT-IP Treatment Start: 11/21/22 12:09 Freq: NEEDED Status: Active Protocol: Document 11/21/22 12:10 ES (Rec: 11/21/22 12:29 ES [id number]) Physical Therapy Treatment Education Education Provided Safety M7 PT-IP Assessment and Plan Start: 11/21/22 12:09 Freq: NEEDED Status: Active Protocol: Document 11/21/22 12:10 ES (Rec: 11/21/22 12:29 ES [id number]) PT Summary Assessment and Plan Potential Rehabilitation Potential Excellent Status of Condition at Evaluation Stable Summary Impairments Balance,Gait Assessment Summary Patient is a 77 year old female who presents with decreased standing balance contributing to gait impairment and increased risk for falls. She tolerated all mobility tasks without increased pain. She would benefit from use of FWW here and at home to increase safety with ambulation. She is appropriate to d/c home when medically stable; will continue to follow during acute stay as needed for further gait and balance training. Goals Gait Goal Independent Gait Distance 300 Other Goals Patient will be able to perform tandem stance eyes open for 10 seconds without LOB to reduce need for AD for gait. Days to Meet Goals 3 Frequency of Treatment Frequency Of Treatment Once a Day Treatment Plan Physical Therapy Treatment Plan Gait Training,Therapeutic Exercise,Balance Retraining Precautions Other Precautions Fall risk Recommendations To Nursing Amount of Assist Needed Standby Assistance Discharge Recommendations PT Discharge Recommendations Home Transportation Needs at Discharge Private Vehicle
--- NOTE | 2022-11-21 14:21 | PM.PN.1 ---
Subjective Subjective Date Patient Seen: 11/21/22 Interval history: 77-year-old female with a history of morbid obesity, bilateral knee replacement, chronic LE venous stasis, MARJAN w/bipap, cellulitis, LE edema, and? remote HX of DVT & PE no longer on anticoagulation who presented to the ED with left lower extremity pain, swelling and redness. Pt notes improvement in distal left lower extremity pain and redness since on IV abx. Exam Vital Signs (past 8 hours): - 11/21/22 09:01 11/21/22 14:11 Temperature 98.1 F 97.8 F Pulse Rate 62 68 Respiratory Rate 18 17 Blood Pressure 120/60 128/66 Pulse Oximetry 99 97 Oxygen Flow Rate 0 0 Oxygen Delivery Method Room Air Oxygen Flow Rate 0 Narrative Exam Narrative: Gen: alert, cooperative, NAD Ext: bilat chronic venous stasis changes, several excoriation left lower shepard with mild surrounding erythema, left pedal swelling and erythema Objective Labs 11/21/22 06:14 11/21/22 06:14 Labs: Laboratory Results - last 24 hr 11/20/22 11/20/22 11/20/22 22:10 22:10 22:10 WBC 11.2 H RBC 3.49 L Hgb 11.3 L Hct 32.9 L MCV 94.0 MCH 32.2 MCHC 34.3 RDW 13.5 Plt Count 184 Neut % (Auto) 76.2 H Lymph % (Auto) 15.3 L [place] % (Auto) 7.1 Eos % (Auto) 0.9 L Baso % (Auto) 0.5 Neut # (Auto) 8500 H Lymph # (Auto) 1700 [place] # (Auto) 800 Eos # (Auto) 100 Baso # (Auto) 100 Sodium 133 L Potassium 3.2 L Chloride 100 Carbon Dioxide 25 BUN 42 H Creatinine 1.38 H Estimated GFR 39 L BUN/Creatinine Ratio 30.4 H Glucose 112 H Lactate 0.8 Calcium 8.4 Magnesium Total Bilirubin 0.8 AST 33 ALT 28 Alkaline Phosphatase 81 C-Reactive Protein Total Protein 7.0 Albumin 3.5 Globulin 3.5 Albumin/Globulin Ratio 1.0 Lipase 108 Procalcitonin 1.48 H Urine Color Urine Appearance Urine pH Ur Specific [place] Urine Protein Urine Glucose (UA) Urine Ketones Urine Occult Blood Urine Nitrate Urine Bilirubin Urine Urobilinogen Ur Leukocyte Esterase Urine RBC Urine WBC Ur Squamous Epith Cells Urine Bacteria Ur Culture Indicated? Micro UA Comment Nasal Screen MRSA (PCR) 11/20/22 11/21/22 11/21/22 22:10 03:10 06:14 WBC 7.1 RBC 3.51 L Hgb 11.3 L Hct 33.0 L MCV 94.0 MCH 32.1 MCHC 34.1 RDW 13.3 Plt Count 169 Neut % (Auto) 74.9 Lymph % (Auto) 14.6 L [place] % (Auto) 8.5 Eos % (Auto) 1.6 L Baso % (Auto) 0.4 Neut # (Auto) 5300 Lymph # (Auto) 1000 L [place] # (Auto) 600 Eos # (Auto) 100 Baso # (Auto) 0 Sodium Potassium Chloride Carbon Dioxide BUN Creatinine Estimated GFR BUN/Creatinine Ratio Glucose Lactate Calcium Magnesium 2.1 Total Bilirubin AST ALT Alkaline Phosphatase C-Reactive Protein 24.1 H Total Protein Albumin Globulin Albumin/Globulin Ratio Lipase Procalcitonin Urine Color Urine Appearance Urine pH Ur Specific [place] Urine Protein Urine Glucose (UA) Urine Ketones Urine Occult Blood Urine Nitrate Urine Bilirubin Urine Urobilinogen Ur Leukocyte Esterase Urine RBC Urine WBC Ur Squamous Epith Cells Urine Bacteria Ur Culture Indicated? Micro UA Comment Nasal Screen MRSA (PCR) Not detected 11/21/22 11/21/22 11/21/22 06:14 06:14 07:08 WBC RBC Hgb Hct MCV MCH MCHC RDW Plt Count Neut % (Auto) Lymph % (Auto) [place] % (Auto) Eos % (Auto) Baso % (Auto) Neut # (Auto) Lymph # (Auto) [place] # (Auto) Eos # (Auto) Baso # (Auto) Sodium 136 L Potassium 3.5 Chloride 104 Carbon Dioxide 27 BUN 35 H Creatinine 1.12 H Estimated GFR 51 L BUN/Creatinine Ratio 31.3 H Glucose 96 Lactate 0.7 Calcium 8.3 L Magnesium Total Bilirubin 0.6 AST 31 ALT 27 Alkaline Phosphatase 74 C-Reactive Protein Total Protein 6.6 Albumin 3.3 L Globulin 3.3 Albumin/Globulin Ratio 1.0 Lipase Procalcitonin Urine Color Yellow Urine Appearance Clear Urine pH 5.5 Ur Specific [place] 1.010 Urine Protein Negative Urine Glucose (UA) Negative Urine Ketones Negative Urine Occult Blood Negative Urine Nitrate Negative Urine Bilirubin Negative Urine Urobilinogen 0.2 Ur Leukocyte Esterase Negative Urine RBC None seen Urine WBC None seen Ur Squamous Epith Cells None seen Urine Bacteria None seen Ur Culture Indicated? 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 Mother No problems noted. 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 LLE cellulitis -improving, cont cefazolin -nasal MRSA neg -poss disch hector on oral abx if stable 2. Mild PEDRO, resolved 3. Hypokalemia, resolved 4. Mod obesity 5. MARJAN -use own BIPAP DVT prevention: Lovenox
[2022-11-21] MEDS: SENNOSIDES 8.6 MG TABLET 17.2 MG PO (20:36)
[2022-11-22] MEDS: CEFAZOLIN VIAL 1 GM in SODIUM CHLORIDE 0.9% 100 ML IV ×3 (00:40→17:20)
[2022-11-22 03:43] VITALS: BP 121/69; PULSE 67; RESP 18; TEMP 36.6; O2SAT 96
[2022-11-22 04:57] LABS: Add Manual Diff / Slide Review NO; Basophils Absolute Auto 0 /uL (0-100); Basophils Percent Auto 0.4 % (0-2); Eosinophils Absolute Auto 200 /uL (0-450); Eosinophils Percent Auto 2.7 % (2-4); Hematocrit 33.1 % (36-46); Hemoglobin 11.4 g/dL (12.0-16.0); Lymphocytes Absolute Auto 1200 /uL (1100-4500); Lymphocytes Percent Auto 21.5 % (25-40); Mean Corpuscular HGB Conc 34.4 % (30-36); Mean Corpuscular Hemoglobin 32.2 PG (26-34); Mean Corpuscular Volume 93.6 fL (80-100); Monocytes Absolute Auto 600 /uL (0-900); Monocytes Percent Auto 10.5 % (3-14); Neutrophils Absolute Auto 3700 /uL (1500-7000); Neutrophils Percent Auto 64.9 % (50-75); Platelet Count 184 X10^3/uL (150-400); Red Blood Cell Count 3.54 X10^6/uL (4.0-5.2); White Blood Cell Count 5.7 X10^3/uL (4.5-11.0)
[2022-11-22 05:07] LABS: Alanine Aminotransferase 25 IU/L (<35); Albumin 3.2 g/dL (3.5-5.0); Alkaline Phosphatase 76 U/L (38-126); Aspartate Aminotransferase 30 IU/L (14-36); BUN Creatinine Ratio 34.8 (6-22); Bilirubin Total 0.5 mg/dL (0.2-1.3); Blood Urea Nitrogen 24 mg/dL (7-17); Calcium 8.4 mg/dL (8.4-10.2); Carbon Dioxide 22 mmol/L (22-32); Chloride 107 mmol/L (98-107); Estimated Glomerular Filt Rate > 60 mL/min (>60); Globulin 3.3 g/dL (1.7-4.1); Glucose 93 mg/dL (80-110); HEMOLYSIS < 15 (0-50); Potassium 3.8 mmol/L (3.4-5.1); Sodium 137 mmol/L (137-145); Total Protein 6.5 g/dL (6.3-8.2)
[2022-11-22 07:00] VITALS: BP 138/74; PULSE 71; RESP 17; TEMP 36.1; O2SAT 98
[2022-11-22] MEDS: ENOXAPARIN 40 MG/0.4 ML SYRINGE SUBCUT (09:20)
[2022-11-22 11:00] VITALS: BP 157/95; PULSE 78; RESP 17; TEMP 36.4; O2SAT 95
[2022-11-22] MEDS: SODIUM CHLORIDE 0.9% 1,000 ML 80 ML IV (12:41)
--- NOTE | 2022-11-22 13:12 | PT.IPTN ---
Physical Therapy Treatment Note M2 PT-IP Current Condition Start: 11/21/22 12:09 Freq: NEEDED Status: Active Protocol: Document 11/21/22 12:10 ES (Rec: 11/21/22 12:29 ES [id number]) Physical Therapy Current Condition Current Condition Evaluation Date 11/21/22 Treatment Diagnosis LLE cellulitis Onset Date 11/21/22 M3 PT-IP Subjective Start: 11/21/22 12:09 Freq: NEEDED Status: Active Protocol: Document 11/22/22 13:33 TS (Rec: 11/22/22 13:45 TS [id number]) Subjective Physical Therapy Visit Type Type Treatment Note Visit Start Time 13:12 Visit Stop Time 13:31 Total Visit Minutes 19 Number of CONTRACTING EXECUTIVE Visits 1 Physical Therapy Visit Comments Patient Comments Pt found sitting up on bed, agreeable to PT. M4 PT-IP Mobility and Gait Start: 11/21/22 12:09 Freq: NEEDED Status: Active Protocol: Document 11/22/22 13:33 TS (Rec: 11/22/22 13:45 TS [id number]) PT-Transfer Assessment Sit to and From Stand Sit to and from Stand Standby Assistance,Use of Upper Extremities Equipment Transfer Assistive Device None,Gait Belt,Front Wheeled Walker Comments Mobility Comments Sit to stand with FWW x1 and x1 with no AD, some unsteadiness initially standing with no AD but no buckling or LOB. She ambulated ~300' in hallway with FWW Ind with normal gait and quick pacing. She performed stairs x3 Ind with LUE rail support step over step. She ambulated ~200' with no AD SBA, x1 of wall support with balance initially in room balanced improved with progression. Pt performed tandem stance x10 secs on ea LE, x1 LOB with R foot in front requiring Umberto. Gait Assessment Gait Gait Assistance Required: Independent,Standby Assistance Distance (Feet) 500 Assistive Devices Assistive Device None,Front Wheeled Walker Comments Gait Comments See mobility comments. Stair Climbing Assessment Evaluation Level of Assist On Stairs Independent Devices Stair Climbing Assistive Devices Left Railing Technique/Endurance Stair Climbing Direction Ascend and Descend Stair Climbing Technique Step Over Step Number of Steps Climbed 3 Stair Climbing Set # Repetitions (reps) 1 Comments Stair Climbing Comments see mobility comments. PT-Balance Assessment Sitting Balance and Reactions Static Sitting Balance Ability Normal Dynamic Sitting Balance Ability Normal Standing Balance and Reactions Static Standing Balance Ability Good Dynamic Standing Balance Ability Fair Device Used None Balance Tests Tandem Standing 10 secs each LE Comments Other Balance Tests/Deviations/Treatment See mobility comments. : M5 PT-IP Objective Assessments Start: 11/21/22 12:09 Freq: NEEDED Status: Active Protocol: Document 11/21/22 12:10 ES (Rec: 11/21/22 12:29 ES [id number]) Orientation Orientation/Cognition Level of Alertness Alert Orientation Name,Age,Birthday,Month,Date, Year,Day of Week,Place, Situation Language Function Ability No Deficits Noted Safety Awareness Understands Safety Issues Memory Description No Deficits Noted Gross Range of Motion Upper Extremity ROM Assessment Within Functional Limits Lower Extremity ROM Assessment Within Functional Limits Strength Upper Extremity Strength Assessment Within Functional Limits Lower Extremity Strength Assessment Within Functional Limits Coordination Assessment Gross Coordination Gross Coordination WNL M6 PT-IP Treatment Start: 11/21/22 12:09 Freq: NEEDED Status: Active Protocol: Document 11/22/22 13:33 TS (Rec: 11/22/22 13:45 TS [id number]) Physical Therapy Treatment Education Education Provided Safety M7 PT-IP Assessment and Plan Start: 11/21/22 12:09 Freq: NEEDED Status: Active Protocol: Document 11/22/22 13:33 TS (Rec: 11/22/22 13:45 TS [id number]) PT Summary Assessment and Plan Potential Rehabilitation Potential Excellent Summary Impairments Balance,Gait Progress Towards Goals Progressing Toward Goals Assessment Summary Pt continues to progress in her mobility. She was Ind with FWW ambulating in hallway ~ 300' did not demonstrate any LOB. She performed stairs x3 with LUE rail asssit step over step. She progressed to no AD ~200 SBA with gait in hallway , x1 use of wall support initially in room. She performed tandem stance on ea LE for 10 secs, had x1 LOB requiring Umberto for correction with R foot in front. Pt is recommending d/c home when medically stable. Goals Gait Goal Independent Gait Distance 300 Other Goals Patient will be able to perform tandem stance eyes open for 10 seconds without LOB to reduce need for AD for gait. Days to Meet Goals 3 Frequency of Treatment Frequency Of Treatment Once a Day Treatment Plan Physical Therapy Treatment Plan Gait Training,Therapeutic Exercise,Balance Retraining Precautions Other Precautions Fall risk Recommendations To Nursing Amount of Assist Needed Independent Discharge Recommendations PT Discharge Recommendations Home Transportation Needs at Discharge Private Vehicle
[2022-11-22 15:00] VITALS: BP 157/73; PULSE 78; RESP 17; TEMP 36.4; O2SAT 95
--- NOTE | 2022-11-22 16:58 | P.PN_ITS ---
Subjective Subjective Interval history: Left foot and shepard has less pain but swelling, redness and warmth persist. Patient says she overall feels better. Exam Vital Signs (past 8 hours): - 11/22/22 11:00 11/22/22 15:00 Temperature 97.5 F L 97.5 F L Pulse Rate 78 78 Respiratory Rate 17 17 Blood Pressure 157/95 H 157/73 H Pulse Oximetry 95 95 Oxygen Flow Rate 0 0 Oxygen Delivery Method Room Air Oxygen Flow Rate 0 Narrative Exam Narrative: GEN: no acute distress HEENT: moist mucous membranes, PERRL NECK: trachea midline, no JVD CV: regular rate and rhythm, no murmurs PULM: clear bilaterally ABD: soft, nontender, nondistended, no organomegaly EXT: bilat chronic venous stasis changes, excoriations of left lower shepard with mild surrounding erythema, left pedal swelling, warmth and erythema NEURO: awake, alert, oriented, no focal deficits Objective Labs 11/22/22 04:40 11/22/22 04:40 Labs: Laboratory Results - last 24 hr 11/22/22 11/22/22 04:40 04:40 WBC 5.7 RBC 3.54 L Hgb 11.4 L Hct 33.1 L MCV 93.6 MCH 32.2 MCHC 34.4 RDW 13.0 Plt Count 184 Neut % (Auto) 64.9 Lymph % (Auto) 21.5 L [place] % (Auto) 10.5 Eos % (Auto) 2.7 Baso % (Auto) 0.4 Neut # (Auto) 3700 Lymph # (Auto) 1200 [place] # (Auto) 600 Eos # (Auto) 200 Baso # (Auto) 0 Sodium 137 Potassium 3.8 Chloride 107 Carbon Dioxide 22 BUN 24 H Creatinine 0.69 Estimated GFR > 60 BUN/Creatinine Ratio 34.8 H Glucose 93 Calcium 8.4 Total Bilirubin 0.5 AST 30 ALT 25 Alkaline Phosphatase 76 Total Protein 6.5 Albumin 3.2 L Globulin 3.3 Albumin/Globulin Ratio 1.0 [facility] Medical History 1+ pitting edema Arthritis Bilateral knee pain 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) Essential hypertension Excessive daytime sleepiness (~2008) Generalized osteoarthritis GERD without esophagitis History of falling Intentional weight loss 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 Mother No problems noted. 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 * Admit: BUN 42, creatinine 1.38, GFR 39. * Cr now normal # hypokalemia, mild, acute, present on admission, resolved * Potassium 3.2, now 3.8 * Trend electrolytes # Obesity, moderate, acute on chronic, present on admission * BMI 37.1 * the patient is at much higher risk for medical and surgical complications due to obesity as it relates to chronic illnesses:, and acute illness. The patient's obesity increases the difficulty and complexity of medical and/or surgical interventions, management and increases the chances of poor outcome such as morbidity and mortality as well as impaired wound healing. # MARJAN, chronic, present on admission * Continue CPAP # history of DVT/PE, present on admission * Patient is no longer on anticoagulation, provocation unknown Code status:Full Surrogate decision maker: Son's Reed & Walt Jackson DVT/VTE prophylaxis: Lovenox and right SCD Disposition: Home in 1-2 days on po abx.
[2022-11-22] MEDS: VANCOMYCIN 2,000 MG/400 ML PIGGYBACK 200 MG IV (18:42)
[2022-11-22 20:39] VITALS: BP 116/68; PULSE 78; RESP 16; TEMP 36.9; O2SAT 95
[2022-11-22] MEDS: SENNOSIDES 8.6 MG TABLET 17.2 MG PO (21:25)
[2022-11-23 03:51] VITALS: BP 144/57; PULSE 83; RESP 16; TEMP 36.9; O2SAT 96
[2022-11-23 05:47] LABS: Add Manual Diff / Slide Review NO; Basophils Absolute Auto 0 /uL (0-100); Basophils Percent Auto 0.6 % (0-2); Eosinophils Absolute Auto 200 /uL (0-450); Hematocrit 33.9 % (36-46); Hemoglobin 11.5 g/dL (12.0-16.0); Lymphocytes Absolute Auto 1700 /uL (1100-4500); Lymphocytes Percent Auto 26.7 % (25-40); Mean Corpuscular Hemoglobin 31.9 PG (26-34); Monocytes Absolute Auto 800 /uL (0-900); Monocytes Percent Auto 12.2 % (3-14); Neutrophils Absolute Auto 3700 /uL (1500-7000); Neutrophils Percent Auto 57.5 % (50-75); Platelet Count 204 X10^3/uL (150-400); Red Blood Cell Count 3.61 X10^6/uL (4.0-5.2); White Blood Cell Count 6.4 X10^3/uL (4.5-11.0)
[2022-11-23 05:59] LABS: Alanine Aminotransferase 21 IU/L (<35); Albumin 3.2 g/dL (3.5-5.0); Alkaline Phosphatase 76 U/L (38-126); Aspartate Aminotransferase 27 IU/L (14-36); BUN Creatinine Ratio 30.8 (6-22); Bilirubin Total 0.6 mg/dL (0.2-1.3); Blood Urea Nitrogen 20 mg/dL (7-17); Calcium 8.5 mg/dL (8.4-10.2); Carbon Dioxide 24 mmol/L (22-32); Chloride 106 mmol/L (98-107); Estimated Glomerular Filt Rate > 60 mL/min (>60); Globulin 3.3 g/dL (1.7-4.1); Glucose 91 mg/dL (80-110); HEMOLYSIS < 15 (0-50); Potassium 4.1 mmol/L (3.4-5.1); Sodium 136 mmol/L (137-145); Total Protein 6.5 g/dL (6.3-8.2)
[2022-11-23 07:00] VITALS: BP 148/84; PULSE 83; RESP 16; TEMP 36.3; O2SAT 96
[2022-11-23] MEDS: ENOXAPARIN 40 MG/0.4 ML SYRINGE SUBCUT (08:37)
--- NOTE | 2022-11-23 12:52 | P.PN_ITS ---
Subjective Subjective Interval history: Patient feels well and is walking around the unit today, but her LL foot and shepard continue to be painful, warm and swollen with redness. Not alot of improvement. Exam Vital Signs (past 8 hours): - 11/23/22 07:00 Temperature 97.4 F L Pulse Rate 83 Respiratory Rate 16 Blood Pressure 148/84 H Pulse Oximetry 96 Oxygen Flow Rate 0 Oxygen Delivery Method Room Air Oxygen Flow Rate 0 Narrative Exam Narrative: GEN: no acute distress HEENT: moist mucous membranes, PERRL NECK: trachea midline, no JVD CV: regular rate and rhythm, no murmurs PULM: clear bilaterally ABD: soft, nontender, nondistended, no organomegaly EXT: bilat chronic venous stasis changes, excoriations of left lower shepard with mild surrounding erythema, left pedal swelling, warmth and erythema NEURO: awake, alert, oriented, no focal deficits Objective Labs 11/23/22 05:10 11/23/22 05:10 Labs: Laboratory Results - last 24 hr 11/23/22 11/23/22 05:10 05:10 WBC 6.4 RBC 3.61 L Hgb 11.5 L Hct 33.9 L MCV 94.0 MCH 31.9 MCHC 34.0 RDW 13.0 Plt Count 204 Neut % (Auto) 57.5 Lymph % (Auto) 26.7 [facility] % (Auto) 12.2 Eos % (Auto) 3.0 Baso % (Auto) 0.6 Neut # (Auto) 3700 Lymph # (Auto) 1700 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) Essential hypertension Excessive daytime sleepiness (~2008) Generalized osteoarthritis GERD without esophagitis History of falling Intentional weight loss 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 Mother No problems noted. 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 * Admit: BUN 42, creatinine 1.38, GFR 39. * Cr now normal # hypokalemia, mild, acute, present on admission, resolved * Potassium 3.2, now 3.8 * Trend electrolytes # Obesity, moderate, acute on chronic, present on admission * BMI 37.1 * the patient is at much higher risk for medical and surgical complications due to obesity as it relates to chronic illnesses:, and acute illness. The patient's obesity increases the difficulty and complexity of medical and/or surgical interventions, management and increases the chances of poor outcome such as morbidity and mortality as well as impaired wound healing. # MARJAN, chronic, present on admission * Continue CPAP # history of DVT/PE, present on admission * Patient is no longer on anticoagulation, provocation unknown Code status:Full Surrogate decision maker: Son'abril Mcbride & Walt Jackson DVT/VTE prophylaxis: Lovenox and right SCD Disposition: Home in 1-2 days on po abx.
[2022-11-23] MEDS: CEFEPIME 2 GM in SODIUM CHLORIDE 0.9% 100 ML IV (13:22)
--- NOTE | 2022-11-23 13:45 | PT-IP ANOTE ---
Pt refused PT this AM because she was wanting to rest however pt states and nursing staff confirms she has been walking around in hallways w/ FWW throughout the day. Will check back on pt tomorrow to determine if PT services are still needed. Pt does not use FWW at baseline but was not assessed w/o AD today.
[2022-11-23 14:12] VITALS: BP 163/72; PULSE 84; RESP 16; TEMP 36.4; O2SAT 97
--- NOTE | 2022-11-23 14:37 | CM.DPNOTE ---
Discharge Planning Note: Patient is receiving 2 IV antibiotics for her ongoing LE cellulitis. Patient ambulating in [place] with PT and they recommend home with assistance. At baseline she does not use a walker. She lives in a cabin on her son's property and her other son lives close by. She has a supportive judaism network. Plan: Discharge home with family support when medically cleared. Ana Sims RN/DCP
[2022-11-23 16:43] VITALS: BP 157/66; PULSE 70; RESP 17; TEMP 36.6; O2SAT 96
[2022-11-23] MEDS: VANCOMYCIN 2,000 MG/400 ML PIGGYBACK 200 MG IV (17:32)
[2022-11-23 20:00] VITALS: BP 135/62; PULSE 79; RESP 18; TEMP 36.9; O2SAT 98
--- NOTE | 2022-11-24 00:14 | DI.RAD.S_ITS ---
PROCEDURE: XR CHEST 1V INDICATIONS: verify picc placement TECHNIQUE: One view of the chest was acquired. COMPARISON: None. FINDINGS: Surgical changes and devices: There is a new right upper extremity PICC line with the tip projecting over the superior vena cava in the region of the cavoatrial junction. Lungs and pleura: Lungs are clear. No pleural effusions or pneumothorax. Mediastinum: Mediastinal contours appear normal. Heart size is normal. Bones and chest wall: No suspicious bony lesions. Overlying soft tissues appear unremarkable. IMPRESSION: 1. New PICC line extends to the region of the cavoatrial junction. Dictated by: Erick Lopez M.D. on 11/24/2022 at 1:20 Approved by: Erick Lopez M.D. on 11/24/2022 at 1:21
[2022-11-24] MEDS: CEFEPIME 2 GM in SODIUM CHLORIDE 0.9% 100 ML IV ×2 (02:38→12:21)
--- NOTE | 2022-11-24 03:13 | PC.NURSE ---
PICC placed by PICC nurse at 0245 in [facility]. Pt tolerated well. STAT CXR ordered and results sent to Radiologist. Radiologist read PICC placement and documented. Ericka Blevins notified. 0100 Cefepime given. Pt resting comfortably with no c/o pain at this time. LLE red, swollen and warm to the touch. Elevating LLE with pillows
[2022-11-24 04:00] VITALS: BP 133/60; PULSE 83; RESP 18; TEMP 37.6; O2SAT 96
[2022-11-24] MEDS: VANCOMYCIN 2,000 MG/400 ML PIGGYBACK 200 MG IV (08:03)
[2022-11-24] MEDS: ENOXAPARIN 40 MG/0.4 ML SYRINGE SUBCUT (08:58)
[2022-11-24 09:17] VITALS: BP 171/93; PULSE 97; RESP 17; TEMP 36.8; O2SAT 95
--- NOTE | 2022-11-24 13:27 | PC.NURSE ---
pt discharged home via son's private vehicle; excorted out via w/c; all belongings sent w/ pt, including prescriptions; written and verbal discharge instructions given and questions answered; pt verbalized understanding
--- NOTE | 2022-11-24 17:25 | P.DS_ITS ---
History of Present Illness History of Present Illness Date Patient Seen: 11/21/22 Time Patient Seen: 00:53 Chief complaint: Cellulitis LLE, PEDRO Narrative: Jazlyn Jackson is a jayde 77-year-old female with a history of morbid obesity, bilateral knee replacement, chronic LE venous stasis, MARJAN w/bipap, cellulitis, LE edema, and remote HX of DVT & PE no longer on anticoagulation who presented to the ED with left lower extremity swelling and redness. ?Patient c/o headache, feeling unwell, decreased appetite, and loose stools for the past 2 days. Noted redness, warmth, and swelling over her LT foot this morning upon waking, which has since extended up her leg almost to her knee, it is circumferential. Patient denies chest pain or shortness of breath, cough, upper respiratory symptoms, syncope, abdominal pain, nausea, vomiting, black or bloody stools, numbness, tingling or weakness.? Patient does not know the reason for previous DVT/PE, had previously been prescribed Coumadin initially then change to a DOAC.?She states she does not have an IVC filter.?In ED she denied any other medical HX or daily meds.? No tobacco, no alcohol, no illicit.? She does have some chronic venous stasis changes and states it is very itchy she scratched it and had some small openings in her skin couple days ago. Patient denies history of MRSA, no recent antibiotic use, no recent hospitalization. Patient is not septic on admit. She notes on admit she is feeling better, and swelling seems to be improving. Admit vitals temp 98.2?, 153/67, 74, 16, 96. Patient has a mild WBC 11 with left shift neutrophils 8500, HGB 11/HCT 32, Na 133, potassium 3.2, patient has an PEDRO previous labs from 10/30/2021: BUN 24, creatinine 0.76, GFR> 60. Today BUN 42, creatinine 1.38, GFR 39. Lactate and bili are normal, procalcitonin 1.48. Patient admitted for left lower extremity cellulitis with PEDRO. Discharge Providers Provider Date of admission: 11/23/22 09:55 Discharge Date: 11/24/22 Primary care physician: Kasia Dao PA-C Consults: 11/21/22 00:44 Consult to Dietitian, Adult Routine Comment: Reason For Exam: BMI 37.1 Consult to Occupational Therapy Evaluate & Treat Comment: Physician Instructions: Evaluate and treat Consult to Physical Therapy Evaluate & Treat Comment: Physician Instructions: Evaluate and Treat Discharge provider: Anibal Mayer DO Summary Hospital Course Discharge Diagnosis: # acute cellulitis, left lower extremity, acute, present on admission, improving * Patient is stable, without sepsis * Patient given clindamycin in ED * History of chronic venous stasis bilateral with edema, cellulitis of RLE * given ancef IV 1g q8h initially * DVT US negative * Erythema, swelling and warmth not improving much despite IV cefazolin * changed ancef to vanc and add cefepime to cover possible pseudomonas * discharged on 5 more days of po linezolid to complete 7 day course # PEDRO, acute, present on admission, resolved * labs from 10/30/2021:? BUN 24, creatinine 0.76, GFR> 60.? * Admit: BUN 42, creatinine 1.38, GFR 39. * Cr now normal # hypokalemia, mild, acute, present on admission, resolved * Potassium 3.2, now 3.8 * Trend electrolytes #? Obesity, moderate, acute on chronic, present on admission * BMI 37.1 * the patient is at much higher risk for medical and surgical complications due to obesity as it relates to chronic illnesses:, and acute illness.? The patient's obesity increases the difficulty and complexity of medical and/or surgical interventions, management and increases the chances of poor outcome such as morbidity and mortality as well as impaired wound healing. # MARJAN, chronic, present on admission * Continue CPAP # history of DVT/PE, present on admission * Patient is no longer on anticoagulation, provocation unknown Hospital Course: Admitted for LLE cellulitis. DVT US neg. Initially put on 1g ancef q8h. Was slow to improve so broadened to cefepime and vanc. Began to improve slowly so dc on po linezolid to complete 7 day course. Time Spent with Patient Time spent: Greater than 30 minutes Exam Vital Signs (past 8 hours): Oxygen Delivery Method Room Air Oxygen Flow Rate 0 Narrative Exam Narrative: GEN: no acute distress HEENT: moist mucous membranes, PERRL NECK: trachea midline, no JVD CV: regular rate and rhythm, no murmurs PULM: clear bilaterally ABD: soft, nontender, nondistended, no organomegaly EXT: bilat chronic venous stasis changes, excoriations of left lower shepard with mild surrounding erythema, left pedal swelling, warmth and erythema NEURO: awake, alert, oriented, no focal deficits Objective Labs 11/23/22 05:10 11/23/22 05:10 [facility] Medical History 1+ pitting edema Arthritis Bilateral knee pain 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) Essential hypertension Excessive daytime sleepiness (~2008) Generalized osteoarthritis GERD without esophagitis History of falling Intentional weight loss 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 Mother No problems noted. 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 It improved slowly on IV antibiotics so you will now be on 2 different oral antibiotics for 5 more days. Please see your PCP to follow-up and make sure it is healing well. Discharge orders & Medications Prescriptions: New linezolid 600 mg tablet 600 mg PO BID 5 Days Qty: 10 0RF doxycycline hyclate 100 mg tablet 100 mg PO BID 5 Days Qty: 10 0RF Continued vitamin B complex Capsule 1 cap PO DAILY cholecalciferol (vitamin D3) [Vitamin D3] 25 mcg (1,000 unit) Capsule 25 mcg PO DAILY zinc 50 mg tablet 50 mg PO DAILY ascorbic acid (vitamin C) 500 mg tablet 500 mg PO DAILY magnesium 250 mg tablet 250 mg PO DAILY Follow up/Referrals: Kasia Dao, PAChrisC [Primary Care Provider] - 2 Weeks Diet/Activity/Treatments Diet: Diet as Tolerated Discharge Data Primary Care Provider: Kasia Dao Discharges patient from system. Discharge Date/Time: 11/24/22 13:26
== END 2022-11-24 13:26 | disposition home or self-care (01) | DRG 603 ==
LOC: ED 11-21 00:54 → AC 11-21 01:39
PROVIDERS: Admitting Provider Nurse Practitioner Family; Emergency Provider Emergency Medicine; Family Provider Internal Medicine; PCP Student in an Organized Health Care Education/Training Program; Visit Provider Nurse Practitioner Family
DX: L03.116 Cellulitis of left lower limb (principal); N17.9 Acute kidney failure, unspecified; E87.6 Hypokalemia; E66.9 Obesity, unspecified; Z68.37 Body mass index [BMI] 37.0-37.9, adult; Z20.822 Contact with and (suspected) exposure to COVID-19
CPT/HCPCS: 36415; 36573; 71045; 80053; 81001; 83605; 83690; 83735; 84145; 85025; 86140; 87040; 87797; 93971; 96365; 96367; 97116; 97161; 99284; G0378; J0690; J0692; J1650; S0077

== ENCOUNTER → 2022-12-24 14:33 | Outpatient (CLI) | payer MEDICARE, OTHER, SELFPAY ==
[2022-11-21 02:58] VITALS: BMI 37.1
--- NOTE | 2022-12-24 14:37 | DI.US.S_ITS ---
PROCEDURE: US [facility] VENOUS LOW EXTREM LT INDICATIONS: LLE SWELLING TECHNIQUE: Real-time imaging, as well as color and pulse Doppler interrogation, were performed of the lower extremity deep veins from the inguinal ligament to the popliteal fossa. COMPARISON: [facility], , [facility] VENOUS LOW EXTREM LT, 08/06/2020, 10:40. FINDINGS: The common femoral, femoral and popliteal veins are normally compressible, and free of intraluminal thrombus. Color and pulse Doppler demonstrate normal phasic intraluminal flow. There is normal augmentation response to distal compression maneuver. Prominent left groin lymph nodes can be seen. There is a small left Austin's cyst measuring 2.2 x 0.8 x 2.1 cm. IMPRESSION: Negative for deep venous thrombosis. Dictated by: Sergio Pearl M.D. on 12/24/2022 at 16:37 Approved by: Sergio Pearl M.D. on 12/24/2022 at 16:37
== END ==
PROVIDERS: Family Provider Internal Medicine; PCP Student in an Organized Health Care Education/Training Program; Referring Provider Physician Assistant; Visit Provider Physician Assistant
DX: M79.89 Other specified soft tissue disorders (principal); M71.22 Synovial cyst of popliteal space [Baker], left knee
CPT/HCPCS: 93971

== ENCOUNTER 2023-06-14 18:43 | Inpatient (IN) | payer MEDICARE, OTHER, MEDICAID, SELFPAY ==
[2022-11-21 02:58] VITALS: BMI 37.1
[2023-06-14] VITALS (16 sets, daily range): BP systolic 151–175; BP diastolic 76–89; PULSE 73–113; RESP 14; TEMP 36.3; O2SAT 92–100; BMI 35.2
--- NOTE | 2023-06-14 18:45 | ED.GENADULT ---
HPI - General Adult <Opal Coulter MD - Last Filed: 06/17/23 22:02> General Chief complaint: Weakness Stated complaint: Spinal fx 1mo ago Time Seen by Provider: 06/14/23 18:45 History of Present Illness HPI narrative: 78 yo woman with histroy of bilateral knee replacements, sleep apnea on BiPAP, chronic lower extremity edema presents complaining of progressive lower extremity weakness bilaterally with increasing falls. She notes that approximately 1 month ago she slipped on a stair fell backwards landed on her bottom, sacrum and her back landed against the stairs. She was diagnosed with an L1 fracture by x-ray at that time. She has been seen by Orthopedics since. Since that time she is been having increasing weakness bilaterally in her lower extremities to the point where she has fallen 5 times in the last couple of days. Today she landed on both knees and is complaining of pain in the distal portion of both knees. When she falls she is unable to get up. She notes that she worked very hard to get back to functional status and pain-free after both knee replacements and was doing well in her cabin where she currently lives independently. She is concerned that she is not mobile enough to continue her independent living and does not understand why both legs are continuing to simply give out on her. She does not describe numbness and aside from the specific L1 pain she is not having pain into her legs. She does not describe urinary hesitancy or frequency. She notes that she has not had a bowel movement for approximately a week. She does not complain of any peroneal sensory loss. She reports no recent fevers, abdominal pain, chest pain, palpitations, headaches, cough, nausea, vomiting or diarrhea. Related Data Home Medications Medication Instructions Recorded Confirmed cholecalciferol (vitamin D3) 25 25 mcg PO DAILY 07/23/20 06/16/23 mcg (1,000 unit) capsule (Vitamin D3) vitamin B complex 1 cap PO DAILY 07/23/20 06/16/23 ascorbic acid (vitamin C) 500 mg 500 mg PO DAILY 02/26/21 06/16/23 tablet magnesium 250 mg tablet 250 mg PO DAILY 02/26/21 06/16/23 zinc 50 mg tablet 50 mg PO DAILY 02/26/21 06/16/23 Allergies Allergy/AdvReac Type Severity Reaction Status Date / Time rivaroxaban [From XARELTO] Allergy Mild HIVES Verified 11/29/22 17:14 dabigatran etexilate AdvReac Unknown Reflux Verified 11/29/22 17:14 [From Pradaxa] Review of Systems <Opal Coulter MD - Last Filed: 06/17/23 22:02> Review of Systems Narrative: Pertinent positive and negative findings as per HPI Patient History <Opal Coulter MD - Last Filed: 06/17/23 22:02> Medical History 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 Intentional weight loss Mixed hyperlipidemia Essential hypertension 1+ pitting edema Venous insufficiency Stasis dermatitis Intentional weight loss Seasonal allergies Generalized osteoarthritis GERD without esophagitis Other pulmonary embolism with acute cor pulmonale 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 Mother No problems noted. 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 Able to give a complete and coherent history. Well-nourished well-developed HEENT: Moist mucous, no cervical spine tenderness Respiratory: Lungs are clear to auscultation, no wheezing no rales no rhonchi. Full and symmetrical air movement Cardiac: Regular rate and rhythm no murmurs no bruits Abdomen: Soft, nontender, good bowel tones, no flank pain Skin: Warm and dry, no rashes, she does have bilateral chronic venous stasis changes of lower extremities Neurologic: Weakness in both lower extremities without significant sensory loss. Extremities: After her fall today she complains of tenderness over the tibial plateau area bilaterally and over the 3rd 4th and 5th toes and dorsum of the foot on the left side. Aside from tenderness to palpation at the sites there is no erythema warmth or redness. Psych: Cooperative, appropriate insight and affect <Griselda Stoll DO - Last Filed: 06/16/23 13:26> Initial Vital Signs Initial Vital Signs: Vital Signs Pulse Rate 95 H 06/14/23 18:48 Pulse Oximetry 99 06/14/23 18:48 Course <Opal Coulter MD - Last Filed: 06/17/23 22:02> Orders Ordered: Acetaminophen (Acetaminophen 325 Mg Tablet) 650 mg PO Q6H PRN PRN Reason: Fever/Mild Pain (1-3) Last Admin: 06/17/23 00:56 Dose: 650 mg Documented By: RANDAL Al Hydrox/Mg Hydrox/Simethicone (Mag Hydrox/Alum/Simeth 30 Ml Udc) 30 ml PO Q6HR PRN PRN Reason: Dyspepsia Docusate Sodium (Docusate 100 Mg Capsule) 100 mg PO BID [facility] Last Admin: 06/17/23 20:35 Dose: 100 mg Documented By: Admin: 06/17/23 08:23 Dose: 100 mg Documented By: Admin: 06/16/23 20:12 Dose: 100 mg Documented By: Admin: 06/16/23 17:00 Dose: 100 mg Documented By: JAMES Enoxaparin Sodium (Enoxaparin 40 Mg/0.4 Ml Syringe) 40 mg SUBCUT DAILY [facility] Last Admin: 06/17/23 08:24 Dose: 40 mg Documented By: Admin: 06/16/23 17:00 Dose: 40 mg Documented By: JAMES Ceftriaxone Sodium 1,000 mg/ (Sodium Chloride) 100 mls @ 200 mls/hr IV Q24H [facility] Last Infusion: 06/17/23 20:57 Dose: Infused Documented By: Admin: 06/17/23 11:35 Dose: 200 mls/hr Documented By: JACKELYN Naloxone HCl (Naloxone 0.4 Mg/Ml Vial) 0.2 mg IV Q2MIN PRN PRN Reason: Opiate Reversal Ondansetron HCl (Ondansetron 4 Mg Odt) 4 mg PO NOW PRN PRN Reason: Nausea And Vomiting Ondansetron HCl (Ondansetron 4 Mg/2 Ml Inj) 4 mg IV NOW PRN PRN Reason: Nausea And Vomiting Polyethylene Glycol (Polyethylene Glycol 3350 17 Gm Powd.Pack) 17 gm PO DAILY [facility] Last Admin: 06/17/23 08:23 Dose: 17 gm Documented By: Admin: 06/16/23 09:52 Dose: 17 gm Documented By: TODD Prednisone (Prednisone 20 Mg Tablet) 20 mg PO DAILY [facility] Last Admin: 06/17/23 15:20 Dose: 20 mg Documented By: MM Discontinued Medications Acetaminophen (Acetaminophen 325 Mg Tablet) 650 mg PO Q6H PRN PRN Reason: Fever/Mild Pain (1-3) Last Admin: 06/16/23 03:48 Dose: 650 mg Documented By: DASIA Bisacodyl (Bisacodyl 5 Mg Tablet) 10 mg PO NOW ONE Stop: 06/14/23 23:35 Last Admin: 06/15/23 00:57 Dose: 10 mg Documented By: CHRISTINE Enoxaparin Sodium (Enoxaparin 40 Mg/0.4 Ml Syringe) 40 mg SUBCUT BEDTIME [facility] Last Admin: 06/15/23 19:53 Dose: 40 mg Documented By: TODD Ceftriaxone Sodium 1,000 mg/ (Sodium Chloride) 100 mls @ 200 mls/hr IV NOW ONE Stop: 06/15/23 09:37 Last Infusion: 06/15/23 10:27 Dose: Infused Documented By: Admin: 06/15/23 09:58 Dose: 200 mls/hr Documented By: MPO Ceftriaxone Sodium 1,000 mg/ (Sodium Chloride) 100 mls @ 200 mls/hr IV NOW ONE Stop: 06/16/23 07:32 Last Infusion: 06/16/23 08:58 Dose: Infused Documented By: Admin: 06/16/23 08:17 Dose: 200 mls/hr Documented By: TODD Magnesium Hydroxide (Magnesium Hydroxide 30 Ml Udc) 30 ml PO NOW ONE Stop: 06/14/23 23:35 Last Admin: 06/15/23 00:57 Dose: 30 ml Documented By: CHRISTINE Naloxone HCl (Naloxone 0.4 Mg/Ml Vial) 0.2 mg IV Q2MIN PRN PRN Reason: Opiate Reversal Oxycodone/Acetaminophen (Oxycodone/Acetaminophen 5/325 Tablet) 1 tab PO NOW ONE Stop: 06/14/23 23:48 Last Admin: 06/15/23 00:56 Dose: 1 tab Documented By: CHRISTINE Vital Signs Vital signs: Vital Signs - 8 hr 06/16/23 08:22 06/16/23 08:22 06/16/23 08:23 Temperature Pulse Rate 96 H 97 H Respiratory Rate 18 Blood Pressure 145/71 H Blood Pressure [Right Arm] 145/71 H Pulse Oximetry 95 97 Oxygen Delivery Method Room Air 06/16/23 08:40 06/16/23 09:00 06/16/23 11:44 Temperature 98.5 F Pulse Rate 103 H 77 Respiratory Rate Blood Pressure Blood Pressure [Right Arm] Pulse Oximetry 94 95 96 Oxygen Delivery Method 06/16/23 11:45 06/16/23 11:45 Temperature Pulse Rate 73 Respiratory Rate Blood Pressure 144/73 H Blood Pressure [Right Arm] Pulse Oximetry 96 Oxygen Delivery Method <Griselda Stoll DO - Last Filed: 06/16/23 13:26> Orders Ordered: Acetaminophen (Acetaminophen 325 Mg Tablet) 650 mg PO Q6H PRN PRN Reason: Fever/Mild Pain (1-3) Last Admin: 06/17/23 00:56 Dose: 650 mg Documented By: RANDAL Al Hydrox/Mg Hydrox/Simethicone (Mag Hydrox/Alum/Simeth 30 Ml Udc) 30 ml PO Q6HR PRN PRN Reason: Dyspepsia Docusate Sodium (Docusate 100 Mg Capsule) 100 mg PO BID [facility] Last Admin: 06/17/23 20:35 Dose: 100 mg Documented By: Admin: 06/17/23 08:23 Dose: 100 mg Documented By: Admin: 06/16/23 20:12 Dose: 100 mg Documented By: Admin: 06/16/23 17:00 Dose: 100 mg Documented By: LDV Enoxaparin Sodium (Enoxaparin 40 Mg/0.4 Ml Syringe) 40 mg SUBCUT DAILY [facility] Last Admin: 06/17/23 08:24 Dose: 40 mg Documented By: Admin: 06/16/23 17:00 Dose: 40 mg Documented By: LDV Ceftriaxone Sodium 1,000 mg/ (Sodium Chloride) 100 mls @ 200 mls/hr IV Q24H [facility] Last Infusion: 06/17/23 20:57 Dose: Infused Documented By: Admin: 06/17/23 11:35 Dose: 200 mls/hr Documented By: JACKELYN Naloxone HCl (Naloxone 0.4 Mg/Ml Vial) 0.2 mg IV Q2MIN PRN PRN Reason: Opiate Reversal Ondansetron HCl (Ondansetron 4 Mg Odt) 4 mg PO NOW PRN PRN Reason: Nausea And Vomiting Ondansetron HCl (Ondansetron 4 Mg/2 Ml Inj) 4 mg IV NOW PRN PRN Reason: Nausea And Vomiting Polyethylene Glycol (Polyethylene Glycol 3350 17 Gm Powd.Pack) 17 gm PO DAILY [facility] Last Admin: 06/17/23 08:23 Dose: 17 gm Documented By: Admin: 06/16/23 09:52 Dose: 17 gm Documented By: TODD Prednisone (Prednisone 20 Mg Tablet) 20 mg PO DAILY [facility] Last Admin: 06/17/23 15:20 Dose: 20 mg Documented By: MM Discontinued Medications Acetaminophen (Acetaminophen 325 Mg Tablet) 650 mg PO Q6H PRN PRN Reason: Fever/Mild Pain (1-3) Last Admin: 06/16/23 03:48 Dose: 650 mg Documented By: SB Bisacodyl (Bisacodyl 5 Mg Tablet) 10 mg PO NOW ONE Stop: 06/14/23 23:35 Last Admin: 06/15/23 00:57 Dose: 10 mg Documented By: CHRISTINE Enoxaparin Sodium (Enoxaparin 40 Mg/0.4 Ml Syringe) 40 mg SUBCUT BEDTIME [facility] Last Admin: 06/15/23 19:53 Dose: 40 mg Documented By: TODD Ceftriaxone Sodium 1,000 mg/ (Sodium Chloride) 100 mls @ 200 mls/hr IV NOW ONE Stop: 06/15/23 09:37 Last Infusion: 06/15/23 10:27 Dose: Infused Documented By: Admin: 06/15/23 09:58 Dose: 200 mls/hr Documented By: MPO Ceftriaxone Sodium 1,000 mg/ (Sodium Chloride) 100 mls @ 200 mls/hr IV NOW ONE Stop: 06/16/23 07:32 Last Infusion: 06/16/23 08:58 Dose: Infused Documented By: Admin: 06/16/23 08:17 Dose: 200 mls/hr Documented By: TODD Magnesium Hydroxide (Magnesium Hydroxide 30 Ml Udc) 30 ml PO NOW ONE Stop: 06/14/23 23:35 Last Admin: 06/15/23 00:57 Dose: 30 ml Documented By: GC Naloxone HCl (Naloxone 0.4 Mg/Ml Vial) 0.2 mg IV Q2MIN PRN PRN Reason: Opiate Reversal Oxycodone/Acetaminophen (Oxycodone/Acetaminophen 5/325 Tablet) 1 tab PO NOW ONE Stop: 06/14/23 23:48 Last Admin: 06/15/23 00:56 Dose: 1 tab Documented By: CHRISTINE Vital Signs Vital signs: Vital Signs - 8 hr 06/16/23 08:22 06/16/23 08:22 06/16/23 08:23 Temperature Pulse Rate 96 H 97 H Respiratory Rate 18 Blood Pressure 145/71 H Blood Pressure [Right Arm] 145/71 H Pulse Oximetry 95 97 Oxygen Delivery Method Room Air 06/16/23 08:40 06/16/23 09:00 06/16/23 11:44 Temperature 98.5 F Pulse Rate 103 H 77 Respiratory Rate Blood Pressure Blood Pressure [Right Arm] Pulse Oximetry 94 95 96 Oxygen Delivery Method 06/16/23 11:45 06/16/23 11:45 Temperature Pulse Rate 73 Respiratory Rate Blood Pressure 144/73 H Blood Pressure [Right Arm] Pulse Oximetry 96 Oxygen Delivery Method Medical Decision Making <Opal Coulter MD - Last Filed: 06/17/23 22:02> Lab Data 06/17/23 08:49 06/17/23 08:49 Labs: Lab Results 06/14/23 06/15/23 06/16/23 Range/Units 20:22 00:47 08:25 WBC 6.1 5.3 (4.5-11.0) X10^3/uL RBC 3.74 L 3.76 L (4.0-5.2) X10^6/uL Hgb 11.8 L 11.8 L (12.0-16.0) g/dL Hct 34.9 L 35.1 L (36-46) % MCV 93.2 93.4 (80-100) fL MCH 31.6 31.5 (26-34) PG MCHC 33.9 33.8 (30-36) % RDW 14.5 14.5 (11.6-14.8) % Plt Count 272 255 (150-400) X10^3/uL Neut % (Auto) 62.3 47.4 L (50-75) % Lymph % (Auto) 25.5 38.8 (25-40) % Clark % (Auto) 10.1 10.2 (3-14) % Eos % (Auto) 1.5 L 2.4 (2-4) % Baso % (Auto) 0.6 1.2 (0-2) % Neut # (Auto) 3800 2500 (4860-3306) /uL Lymph # (Auto) 1500 2000 (0099-4158) /uL Clark # (Auto) 600 500 (0-900) /uL Eos # (Auto) 100 100 (0-450) /uL Baso # (Auto) 0 100 (0-100) /uL PT 12.5 (9.4-12.5) SECONDS INR 1.1 (0.9-1.3) Sodium 137 136 L (137-145) mmol/L Potassium 4.0 4.3 (3.4-5.1) mmol/L Chloride 102 104 (98-107) mmol/L Carbon Dioxide 30 27 (22-32) mmol/L BUN 21 H 19 H (7-17) mg/dL Creatinine 0.61 0.67 (0.52-1.04) mg/dL Estimated GFR > 60 > 60 (>60) mL/min BUN/Creatinine Ratio 34.4 H 28.4 H (6-22) Glucose 101 97 (80-110) mg/dL Calcium 9.9 9.6 (8.4-10.2) mg/dL Total Bilirubin 0.7 (0.2-1.3) mg/dL AST 32 (14-36) IU/L ALT 20 (<35) IU/L Alkaline Phosphatase 90 (38-126) U/L Total Protein 7.3 (6.3-8.2) g/dL Albumin 3.9 (3.5-5.0) g/dL Globulin 3.4 (1.7-4.1) g/dL Albumin/Globulin Ratio 1.1 (1.0-2.8) Lipase 167 (23-300) U/L Urine RBC None seen (0-5/HPF) Urine WBC 5-10/hpf H (0-5/HPF) Ur Squamous Epith Cells 1-5 /hpf (0-5/HPF) Urine Bacteria Many (>30) H (None) Ur Culture Indicated? Specimen cultured Urine Dip Bedside Urine Glucose Negative Bedside Urine Bilirubin - Negative Bedside Urine Ketone +/- 5 Urine Specific [place] 1.025 Bedside Urine Occult Blood - Negative Bedside Urine pH 6.0 Bedside Urine Protein - Negative Bedside Urine Urobilinogen - Negative Bedside Urine Nitrite + Positive Bedside Urine Leukocytes +/- 15 Esterase Point of care testing: Urine Dip Bedside Urine Glucose Negative Bedside Urine Bilirubin - Negative Bedside Urine Ketone +/- 5 Urine Specific [place] 1.025 Bedside Urine Occult Blood - Negative Bedside Urine pH 6.0 Bedside Urine Protein - Negative Bedside Urine Urobilinogen - Negative Bedside Urine Nitrite + Positive Bedside Urine Leukocytes +/- 15 Esterase MDM Narrative Medical decision making narrative: CC: Progressive weakness bilateral lower extremities with increasing number of falls since trauma to the lumbar spine and L1 fracture approximately 1 month ago Complicating co-morbidities: Morbid obesity, bilateral knee replacement Data collected from: patient Social determinants of health that may influence the patients condition: Independent living Medical records reviewed: ED notes from [facility] on June 10 with bright red blood per rectum. Outpatient notes from the [facility] on 05/04 are reviewed patient is seen after she slipped and fell on April 24 with persistent tailbone pain. Concern for an L4 compression fracture was noted and referral to Dr. Jones orthopedic surgery was initiated. Differential considered: Spinal cord injury causing progressive compression and weakness, periprosthetic fractures of the knees Exam documented above, pertinent findings include: She is specific point tenderness over L1 and her sacrum. Tenderness over proximal tibias bilaterally tenderness over the left dorsum of the foot. There are no documented paresthesias of the lower extremities. Remainder of exam is benign Lab Test results independently reviewed as above. Pertinent findings: X-ray left knee X-ray right knee MRI lumbar spine Imaging studies independently reviewed: X-ray of the lumbar spine was done at [facility] on May 05 showing a moderate L4 compression fracture with no retropulsion appreciated severe disc height loss at L5-S1. Consultations: Treatments: Percocet for pain control Re-evaluations: Discussion: <Griselda Ddoie, DO - Last Filed: 06/16/23 13:26> Lab Data Labs: Lab Results 06/14/23 06/15/23 06/16/23 Range/Units 20:22 00:47 08:25 WBC 6.1 5.3 (4.5-11.0) X10^3/uL RBC 3.74 L 3.76 L (4.0-5.2) X10^6/uL Hgb 11.8 L 11.8 L (12.0-16.0) g/dL Hct 34.9 L 35.1 L (36-46) % MCV 93.2 93.4 (80-100) fL MCH 31.6 31.5 (26-34) PG MCHC 33.9 33.8 (30-36) % RDW 14.5 14.5 (11.6-14.8) % Plt Count 272 255 (150-400) X10^3/uL Neut % (Auto) 62.3 47.4 L (50-75) % Lymph % (Auto) 25.5 38.8 (25-40) % Clark % (Auto) 10.1 10.2 (3-14) % Eos % (Auto) 1.5 L 2.4 (2-4) % Baso % (Auto) 0.6 1.2 (0-2) % Neut # (Auto) 3800 2500 (0049-1885) /uL Lymph # (Auto) 1500 2000 (1451-8976) /uL Clark # (Auto) 600 500 (0-900) /uL Eos # (Auto) 100 100 (0-450) /uL Baso # (Auto) 0 100 (0-100) /uL PT 12.5 (9.4-12.5) SECONDS INR 1.1 (0.9-1.3) Sodium 137 136 L (137-145) mmol/L Potassium 4.0 4.3 (3.4-5.1) mmol/L Chloride 102 104 (98-107) mmol/L Carbon Dioxide 30 27 (22-32) mmol/L BUN 21 H 19 H (7-17) mg/dL Creatinine 0.61 0.67 (0.52-1.04) mg/dL Estimated GFR > 60 > 60 (>60) mL/min BUN/Creatinine Ratio 34.4 H 28.4 H (6-22) Glucose 101 97 (80-110) mg/dL Calcium 9.9 9.6 (8.4-10.2) mg/dL Total Bilirubin 0.7 (0.2-1.3) mg/dL AST 32 (14-36) IU/L ALT 20 (<35) IU/L Alkaline Phosphatase 90 (38-126) U/L Total Protein 7.3 (6.3-8.2) g/dL Albumin 3.9 (3.5-5.0) g/dL Globulin 3.4 (1.7-4.1) g/dL Albumin/Globulin Ratio 1.1 (1.0-2.8) Lipase 167 (23-300) U/L Urine RBC None seen (0-5/HPF) Urine WBC 5-10/hpf H (0-5/HPF) Ur Squamous Epith Cells 1-5 /hpf (0-5/HPF) Urine Bacteria Many (>30) H (None) Ur Culture Indicated? Specimen cultured Urine Dip Bedside Urine Glucose Negative Bedside Urine Bilirubin - Negative Bedside Urine Ketone +/- 5 Urine Specific [place] 1.025 Bedside Urine Occult Blood - Negative Bedside Urine pH 6.0 Bedside Urine Protein - Negative Bedside Urine Urobilinogen - Negative Bedside Urine Nitrite + Positive Bedside Urine Leukocytes +/- 15 Esterase Point of care testing: Urine Dip Bedside Urine Glucose Negative Bedside Urine Bilirubin - Negative Bedside Urine Ketone +/- 5 Urine Specific [place] 1.025 Bedside Urine Occult Blood - Negative Bedside Urine pH 6.0 Bedside Urine Protein - Negative Bedside Urine Urobilinogen - Negative Bedside Urine Nitrite + Positive Bedside Urine Leukocytes +/- 15 Esterase MDM Narrative Medical decision making narrative: CC: Progressive weakness bilateral lower extremities with increasing number of falls since trauma to the lumbar spine and L1 fracture approximately 1 month ago Complicating co-morbidities: Morbid obesity, bilateral knee replacement Data collected from: patient Social determinants of health that may influence the patients condition: Independent living Medical records reviewed: ED notes from [facility] on June 10 with bright red blood per rectum. Outpatient notes from the [facility] on 05/04 are reviewed patient is seen after she slipped and fell on April 24 with persistent tailbone pain. Concern for an L4 compression fracture was noted and referral to Dr. Jones orthopedic surgery was initiated. Differential considered: Spinal cord injury causing progressive compression and weakness, periprosthetic fractures of the knees Exam documented above, pertinent findings include: She is specific point tenderness over L1 and her sacrum. Tenderness over proximal tibias bilaterally tenderness over the left dorsum of the foot. There are no documented paresthesias of the lower extremities. Remainder of exam is benign Lab Test results independently reviewed as above. Pertinent findings: X-ray left knee X-ray right knee MRI lumbar spine Imaging studies independently reviewed: X-ray of the lumbar spine was done at [facility] on May 05 showing a moderate L4 compression fracture with no retropulsion appreciated severe disc height loss at L5-S1. Consultations: Treatments: Percocet for pain control Re-evaluations: Discussion: Dr. Stoll-patient signed out to me by Dr. Coulter. I have seen evaluated patient myself, waiting for MRI this morning. Patient reports that she fell on April 16 she has had a compression fracture she was seen by orthopedics. She was given tramadol pain medication she has been using walking stick and walker. She has fallen a handful of times Zofran. Including in the shower. However yesterday she reports that she was not walking with her walker both legs just gave out on her for no reason. On exam she is unable to lift each leg she is sensation in both. She denies any bowel or bladder changes. She received oxycodone last night which he says helped a lot with pain. MR here now for MRI. MR not show any evidence of cauda equina but does have significant narrowing. She is evaluated by physical therapy ultimately deemed unsafe to go home but she able to walk. She is evaluated by social work as well. Dr. Lenz hospitalist updated patient's symptoms test results will abide by policy will hold her in the ED till tomorrow. Have physical therapy re-evaluate in the morning. 06/16/23 10am patient is seen evaluated by myself she is talking on the phone. Abdomen soft nontender. She does complain of some frequent painful urination consistent with UTI. Urinalysis is positive for Gram-negative bacteria. She has received 2 doses of Rocephin now. She has been evaluated by 2 different physical therapist 1 yesterday and 1 today. PT today also recommends sniff. She is unsafe to go home. UTI may be causing increased weakness although she has not septic. Dr. Lenz again updated patient's symptoms test results the social work note from yesterday. accepts to observation Discharge Plan Departure Patient Disposition: Admitted as Observation Clinical Impression: Bilateral leg weakness, Acute bilateral knee pain, Acute pain of left foot Closed compression fracture of L1 vertebra Qualifiers: Encounter type: subsequent encounter Fracture healing: with routine healing Qualified Code(s): S32.010D - Wedge compression fracture of first lumbar vertebra, subsequent encounter for fracture with routine healing Fall Qualifiers: Encounter type: initial encounter Qualified Code(s): W19.XXXA - Unspecified fall, initial encounter Admit Date/Time: 06/16/23 11:50 Admit Provider: Ford Lenz
--- NOTE | 2023-06-14 20:06 | DI.RAD.S_ITS ---
PROCEDURE: XR ACUTE ABDOMEN SERIES INDICATIONS: no bm x 10 days. Fall risk TECHNIQUE: One view chest and two views of the abdomen were acquired. COMPARISON: None. FINDINGS: Surgical changes and devices: Right upper quadrant surgical clips. Chest: Lungs are clear. Heart size is normal. No pleural effusions. No pneumoperitoneum. Abdomen: Dilated loop of bowel within the mid abdomen. No suspicious calcifications. Visualized solid organ contours appear normal. Bones: No suspicious bony lesions. IMPRESSION: Dilated loop of bowel within the mid abdomen. Gas is seen throughout the colon to the rectum. Differential includes ileus and partial obstruction is not excluded. Dictated by: Denny Berry M.D. on 06/14/2023 at 21:42 Approved by: Denny Berry M.D. on 06/14/2023 at 21:45
[2023-06-14 20:30] LABS: Add Manual Diff / Slide Review NO; Basophils Absolute Auto 0 /uL (0-100); Basophils Percent Auto 0.6 % (0-2); Eosinophils Absolute Auto 100 /uL (0-450); Eosinophils Percent Auto 1.5 % (2-4); Hematocrit 34.9 % (36-46); Hemoglobin 11.8 g/dL (12.0-16.0); Lymphocytes Absolute Auto 1500 /uL (1100-4500); Lymphocytes Percent Auto 25.5 % (25-40); Mean Corpuscular HGB Conc 33.9 % (30-36); Mean Corpuscular Hemoglobin 31.6 PG (26-34); Mean Corpuscular Volume 93.2 fL (80-100); Monocytes Absolute Auto 600 /uL (0-900); Monocytes Percent Auto 10.1 % (3-14); Neutrophils Absolute Auto 3800 /uL (1500-7000); Neutrophils Percent Auto 62.3 % (50-75); Platelet Count 272 X10^3/uL (150-400); Red Blood Cell Count 3.74 X10^6/uL (4.0-5.2); Red Cell Distribution Width 14.5 % (11.6-14.8); White Blood Cell Count 6.1 X10^3/uL (4.5-11.0)
[2023-06-14 20:40] LABS: INR 1.1 (0.9-1.3); Prothrombin Time 12.5 SECONDS (9.4-12.5)
[2023-06-14 20:51] LABS: Alanine Aminotransferase 20 IU/L (<35); Albumin 3.9 g/dL (3.5-5.0); Albumin Globulin Ratio 1.1 (1.0-2.8); Alkaline Phosphatase 90 U/L (38-126); Aspartate Aminotransferase 32 IU/L (14-36); BUN Creatinine Ratio 34.4 (6-22); Bilirubin Total 0.7 mg/dL (0.2-1.3); Blood Urea Nitrogen 21 mg/dL (7-17); Calcium 9.9 mg/dL (8.4-10.2); Carbon Dioxide 30 mmol/L (22-32); Chloride 102 mmol/L (98-107); Estimated Glomerular Filt Rate > 60 mL/min (>60); Globulin 3.4 g/dL (1.7-4.1); Glucose 101 mg/dL (80-110); HEMOLYSIS < 15 (0-50); Lipase 167 U/L (23-300); Sodium 137 mmol/L (137-145); Total Protein 7.3 g/dL (6.3-8.2)
--- NOTE | 2023-06-14 23:34 | DI.RAD.S_ITS ---
PROCEDURE: XR KNEE RT 3V INDICATIONS: fall, prosthesis TECHNIQUE: 3 views of the knee were acquired. COMPARISON: [facility], CR, XR KNEE RT 1TO2V, 12/03/2021, 17:27. [facility], CR, XR KNEE LT 1TO2V, 07/24/2020, 16:04. FINDINGS: Bones: No fractures or dislocations. Stable appearance of right knee arthroplasty. The hardware appears intact without surrounding fracture or lucency. No suspicious bony lesions. Soft tissues: No joint effusion. No suspicious soft tissue calcifications. IMPRESSION: No acute osseous abnormalities. Stable appearance of right knee arthroplasty without evidence of interval complication. Dictated by: Denny Berry M.D. on 06/15/2023 at 0:08 Approved by: Denny Berry M.D. on 06/15/2023 at 0:09
--- NOTE | 2023-06-14 23:34 | DI.RAD.S_ITS ---
PROCEDURE: XR KNEE LT 3V INDICATIONS: fall, prosthesis TECHNIQUE: 3 views of the knee were acquired. COMPARISON: [facility], CR, XR KNEE RT 1TO2V, 12/03/2021, 17:27. [facility], CR, XR KNEE LT 1TO2V, 07/24/2020, 16:04. FINDINGS: Bones: No fractures or dislocations. Stable appearance of left knee arthroplasty in place. The hardware appears intact without surrounding fracture or lucency. No suspicious bony lesions. Soft tissues: Small joint effusion. No suspicious soft tissue calcifications. IMPRESSION: No acute fracture or dislocation. Stable appearance of left knee arthroplasty without evidence of interval complication. Dictated by: Denny Berry M.D. on 06/15/2023 at 0:06 Approved by: Denny Berry M.D. on 06/15/2023 at 0:07
--- NOTE | 2023-06-14 23:34 | DI.MRI.S_ITS ---
PROCEDURE: MR LUMBAR SPINE WO/W CON INDICATIONS: progressive LE weakness with increasing falls TECHNIQUE: Noncontrast sagittal T1 spin echo and T2 fast echo, sagittal STIR, and T2 fast spin echo through the lumbar spine. In cases with scoliosis, additional coronal T2 fast spin echo may be performed. COMPARISON: [facility], CR, XR LUMBAR SPINE 2 OR 3 VIEWS, 05/05/2023, 14:15. FINDINGS: Image quality: Excellent. Alignment and Curvature: Mild levoconvex scoliotic curvature is noted. No focal AP alignment abnormality is seen. Bone Marrow: Marrow is of normal overall signal. As previously demonstrated, there is a fracture of the L4 vertebral body, with 60-70% loss of height centrally. This vertebral body demonstrates generalized decreased T1 weighted signal with increased STIR signal. There is mild increased enhancement seen throughout much of this vertebral body, which is attributed to an appropriate inflammatory/reparative response. No significant involvement of the posterior elements can be seen. No acute vertebral body compression fractures. Spinal Cord: Conus medullaris terminates at the L1 level. Visualized cord demonstrates normal signal and size. Paraspinous Soft Tissues: No paravertebral masses. T12-L1: Normal appearance. L1-L2: Normal appearance. L2-L3: Normal appearance. L3-L4: The disc height and disk signal are relatively well-preserved. Mild to moderate disc bulge is seen, with a central disc protrusion. At least moderate facet hypertrophy is seen. Associated hypertrophy of the ligamentum flavum can be seen. Fluid is seen within the facet joints themselves. There is moderate to severe bilateral neural foraminal narrowing seen, with an associated a degree of compression seen upon the exiting nerve roots. At least moderate central canal narrowing is seen. L4-L5: The disc height and disk signal are relatively well-preserved. Mild generalized disc bulge is seen. Moderate facet joint hypertrophy is seen. There is [id number] right-sided and no left-sided neural foraminal narrowing. No central canal narrowing is seen. L5-S1: At least moderate loss of disc height is seen. Mild to moderate disc bulge is seen, which is eccentric to the left. Mild to moderate facet hypertrophy is seen. No significant neural foraminal or central canal narrowing can be seen. IMPRESSION: Subacute fracture again seen involving the L4 vertebral body. The imaging appearance is most consistent with an osteoporotic fracture. A pathologic fracture is possible, yet considered to be less likely. Underlying degenerative changes are seen, which are worst at the L3-L4 level, where there is moderate to severe bilateral neural foraminal narrowing. No abnormal enhancement is seen. Mild levoconvex scoliotic curvature is noted. Dictated by: Sergio Pearl M.D. on 06/15/2023 at 9:18 Approved by: Sergio Pearl M.D. on 06/15/2023 at 9:23
[2023-06-15] VITALS (30 sets, daily range): BP systolic 126–186; BP diastolic 59–84; PULSE 71–104; RESP 16–20; O2SAT 91–98; BMI 33.6
[2023-06-15] MEDS: OXYCODONE/ACETAMINOPHEN 5/325 TABLET 1 TAB PO (00:56)
[2023-06-15] MEDS: BISACODYL 5 MG TABLET 10 MG PO (00:57)
[2023-06-15] MEDS: MAGNESIUM HYDROXIDE 30 ML UDC PO (00:57)
[2023-06-15 01:01] LABS: Bacteria Urine Many (>30); Culture Indicated Urine Specimen Cultured; RBC Urine None Seen (0-5/HPF); Squamous Epithelial Cell Urine 1-5 /HPF (0-5/HPF); WBC Urine 5-10/HPF (0-5/HPF)
--- NOTE | 2023-06-15 08:17 | PC.NURSE ---
Pt up to bsc with 2 person assist. Pt a&ox4 but very anxious. Denies pain but states that her legs are very weak and often give out. Pt reports that she has fallen 5 times recently and that she is scared to get up and move around because she does not want to fall and hurt herself. MRI has been called in and pt is in hospital gown wither her moravian undergarments underneath. Pt brief changed.
[2023-06-15] MEDS: cefTRIAXone 1,000 MG in SODIUM CHLORIDE 0.9% 100 ML 200 MG IV (09:58)
--- NOTE | 2023-06-15 09:59 | PC.NURSE ---
Pt has returned from MRI. Denies pain at this time. a&ox4.
--- NOTE | 2023-06-15 14:04 | PT.IIE ---
Surgical History (Last Reviewed 06/14/23 @ 23:43 by Opal Coulter MD) H/O bilateral cataract extraction History of arthroplasty of left knee (07/24/20) History of cholecystectomy History of salpingo-oophorectomy Medical History (Last Reviewed 06/14/23 @ 23:43 by Opal Coulter MD) 1+ pitting edema Arthritis Bilateral knee pain 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) Essential hypertension Excessive daytime sleepiness (~2008) Generalized osteoarthritis GERD without esophagitis History of falling Intentional weight loss Intentional weight loss nurse wound care associated with adverse incidents Mixed hyperlipidemia Morbid obesity with BMI of 40.0-44.9, adult Nocturnal hypoxemia Obstructive sleep apnea of adult (~2008) Other pulmonary embolism with acute cor pulmonale Primary osteoarthritis of left knee Pulmonary emboli (~2007) Seasonal allergies Stasis dermatitis Venous insufficiency Physical Therapy Inpatient Evaluation/Re-Eval M1 PT/OT-IP Prior Functional Status Start: 06/15/23 11:45 Freq: Status: Active Protocol: Document 06/15/23 14:04 AW (Rec: 06/15/23 14:50 AW [id number]) Medical Review Prior Functional Status Medical History Reviewed Yes Communication WNL. Mobility and Gait Pt is independently mobile at baseline, does not use any assistive device. She has had bilateral TKA in the past few years and worked hard in PT to get to the point where she could transition to community fitness. She enjoys gentle yoga and pool aerobics. Activities of Daily Living and IADL's Independent. Prior Functional Level (Other details) Pt states she has become more reliant on her FWW for mobility. She has been taking only sponge baths after a recent fall in the shower. Social History Household Members none Living Arrangements House Number of Floors (Floors) One Floor Number of Stairs To Enter/Railing? 2 [place] with left side railing Home Environment Standard Height Toilet,Walk in Shower Home Equipment Front Wheel Walker,Raised Toilet Seat w/Armrests Employment Status Retired Additional Social History Comment Pt lives in a cabin on her son 's property. Her son used to live in another building on the property but does not stay there any longer. He does check in regularly. M2 PT-IP Current Condition Start: 06/15/23 11:45 Freq: Status: Active Protocol: Document 06/15/23 14:04 AW (Rec: 06/15/23 14:50 AW [id number]) Physical Therapy Current Condition Current Condition Evaluation Date 06/15/23 Treatment Diagnosis increasing falls frequency, B LE weakness; impaired mobility Onset Date 04/20/23 - date of first fall M3 PT-IP Subjective Start: 06/15/23 11:45 Freq: Status: Active Protocol: Document 06/15/23 14:04 AW (Rec: 06/15/23 14:50 AW [id number]) Subjective Physical Therapy Visit Type Type Initial Evaluation Visit Start Time 13:11 Visit Stop Time 14:04 Total Visit Minutes 53 Notes Pt was seen in ED. Physical Therapy Visit Comments Patient Comments I have a lot of fear when it comes to falling. Patient Goals Jazlyn hopes to get stronger so she can go home again. Therapy Pain Assessment Pain When Pain Assessed During Mobility Pain Present Pain Present Pain Reported Location back Intensity 5 Scale Used Numeric (0 - 10) Description With Movement M4 PT-IP Mobility and Gait Start: 06/15/23 11:45 Freq: Status: Active Protocol: Document 06/15/23 14:04 AW (Rec: 06/15/23 14:50 AW [id number]) PT-Bed Mobility Assessment Rolling Type of Rolling Log Rolling,Roll to Right Level of Assist Minimal Assistance Supine to Sit Supine to Sit Minimal Assistance Sit to Supine Sit to Supine Minimal Assistance PT-Transfer Assessment Sit to and From Stand Sit to and from Stand Moderate Assistance,Use of Upper Extremities Equipment Transfer Assistive Device Gait Belt,Front Wheeled Walker Orthotic/Prosthetic Devices or Brace: No Transfers Transfer Destination Bed,Chair Transfer Technique Stand Step Pivot Transfer Ability Level of Assist Moderate Assistance Comments Mobility Comments Pt is found resting on the ED gurney. She presents with gross B LE strength deficits as noted below. PT educates her on lumbar precautions. Pt states her orthopedist told her to severely limit her activity and she has complied. PT assists pt to sitting EOB with log roll technique. Pt is quite anxious and begins to talk about her fear of falling . She is able to stand with min assist from the tall gurney. She shifts weight laterally, using the FWW for support. The walker is too tall and PT instructs pt to sit again. PT adjusts the walker height and pt stands again, shifts weight again, and then uses FWW to ambulate 25 feet with good safety awareness and without sign of instability or buckling. Pt returns to the room and begins to lose her balance but is able to quickly sit on a folding chair. Pt rests before attempting to stand from the low chair. Pt states she is heavily reliant on environmental support, using her arms to stabilize and to pull herself into standing. PT arranges pt next to sink which she contacts with her left hand to pull while she pushes from the seat with her right hand. She is barely able to clear her hips from the chair. PT instructs pt in sit to stand techniques and pt attempts three more times with limited success. SENIOR ATTORNEY arrives to provide second person assist but pt remains unable to stand. PT then places commode next to pt's chair so that she can pull with left hand and push with right hand from the commode handle and pt is able to stand from the low chair with mod assist x 2. Pt walks back to the [facility] with FWW and CGA. Min A to return to supine with log roll technique. Gait Assessment Gait Gait Assistance Required: Contact Guard Assist Distance (Feet) 25 Assistive Devices Assistive Device Gait Belt,Front Wheeled Walker Orthotic/Prosthetic Devices or Brace: No Gait Deviations General Gait Pattern Antalgic,Decreased Stride Length,Decreased Feet Clearance,Flexed Trunk,Step-to Gait,Wide Based Gait Factors Limiting Gait Function Factors Limiting Gait Function Decreased Strength,Pain,Poor Balance Comments Gait Comments See mobility comments for details. Stair Climbing Assessment Comments Stair Climbing Comments Unable at this time. PT-Balance Assessment Sitting Balance and Reactions Static Sitting Balance Ability Good Dynamic Sitting Balance Ability Good Standing Balance and Reactions Static Standing Balance Ability Fair Dynamic Standing Balance Ability Fair Device Used FWW M5 PT-IP Objective Assessments Start: 06/15/23 11:45 Freq: Status: Active Protocol: Document 06/15/23 14:04 AW (Rec: 06/15/23 14:50 AW [id number]) Orientation Orientation/Cognition Level of Alertness Alert Orientation Name,Day of Week,Place, Situation Language Function Ability No Deficits Noted Safety Awareness Understands Safety Issues Memory Description No Deficits Noted Gross Range of Motion Upper Extremity ROM Assessment Within Functional Limits Lower Extremity ROM Assessment Within Functional Limits Impairments Limited by habitus Strength Upper Extremity Strength Shoulder 4/5 flexion Elbow 4+/5 flexion 4/5 extension Lower Extremity Strength Assessment Bilaterally Impaired Hip 3-/5 flexion and extension Knee 4+/5 ext 4/5 flex Ankle 4+/5 DF Sensation Assessment Sensation Gross Sensation WNL M6 PT-IP Treatment Start: 06/15/23 11:45 Freq: Status: Active Protocol: Document 06/15/23 14:04 AW (Rec: 06/15/23 14:50 AW [id number]) Physical Therapy Treatment Education Education Provided Safety Other Treatments Other Treatment Performed Education provided on lumbar precautions and importance of continued mobility. M7 PT-IP Assessment and Plan Start: 06/15/23 11:45 Freq: Status: Active Protocol: Document 06/15/23 14:04 AW (Rec: 06/15/23 14:50 AW [id number]) PT Summary Assessment and Plan Potential Rehabilitation Potential Good Status of Condition at Evaluation Evolving Summary Impairments Pain,ROM,Strength,Balance,Bed Mobility,Transfers,Gait Assessment Summary Jazlyn Jackson is a 78 yo woman seen for PT evaluation in the context of multiple recent falls. She is seen in the emergency department. She initially fell on 04/20/23 and subsequent imaging revealed L4 compression fracture. She was apparently advised to limit her activity which she did but she continued to fall, including at least two falls directly to her knees. She now complains of low back pain and bilateral knee pain (right more affected than left). PLOF: Pt was independently mobile prior to her first fall . She lives alone in a single level home with a few stairs to enter. Her sons check in on her regularly. CLOF: Pt presents with gross strength impairments with her hips affected most severely. She has no discernible pattern of strength or sensation impairments that suggest lumbar etiology. She is requiring assist for all phases of mobility (up to two people needed for sit to stand ) and is not safe to manage at home independently. She needs FWW for ambulation. In the context of increasing falls frequency and debility compared with PLOF, PT recommends consideration of SNF placement for daily rehab activities in a setting that can support her care needs during her functional recovery . Goals Bed Mobility Goal Independent Transfer Goal Independent,Front Wheeled Walker Gait Goal Independent,Front Wheel Walker Gait Distance 150 Other Goals - up/down 2 steps using hand rail with SBA Days to Meet Goals 10 Frequency of Treatment Frequency Of Treatment Once a Day Treatment Plan Physical Therapy Treatment Plan Bed Mobility Training,Transfer Training,Gait Training, Therapeutic Exercise,Balance Retraining,Discharge Planning, Hot or Cold Pack Other Recommendations and Next Treatment Recommend OT order if pt is Focus admitted. Recommendations To Nursing Amount of Assist Needed 2 Person Assist Discharge Recommendations PT Discharge Recommendations SNF Rehab Transportation Needs at Discharge Private Vehicle
--- NOTE | 2023-06-15 17:00 | CM.SWNOTE ---
ED JUDICIAL ASSISTANT Note Patient is 78 y/o female who presents to the ED via EMS after recent GLF last night. Patient endorses her knees felt weak and gave out. Patient has hx of bilateral TKA a few years ago and recovered well with outpt PT. Patient had hx of GLF onto back about a month ago resulting in a compression fracture of the vertebra, patient states she has had minimal mobility since then due to recommendation for ED provider at [facility] to heal. Patient's PCP is Kasia Mclean, patient has Medicare, [employer] and Medicaid insurance. Patient has hx of essential hypertension, mix hyperlipidemia, Obstructed sleep apnea, PE and arthritis. JUDICIAL ASSISTANT enters room to meet with patient, patient presents as A/Ox4. Patient presents as anxious and repeatedly states she is fearful of falling. Patient states that her son visited earlier last night and when he left she fell and then called 911. Patient resides in a cabin in [place] on son's property, it is reported that son is not currently living on the property. Patient has 2 sons that live in [place], 1 daughter in [place], 1 son in [place] and a son in [place]. Patient endorses that all of her children are busy with their lives and jobs, but her sons that live in [place] check on her throughout the day. Patient states that she lives on social security and receives $1400 a month, patient states she does not own her home or the car she uses, patient states her 18 years ago. Patient endorses at baseline prior to GLF onto back last month she was independent with all ADLs, walked independently and drove. Patient states she has been using a FWW in the last month but barely getting up to walk with increased weakness, patient states she has not been driving in the last month either. Patient denies hx of SNF rehab or HH, patient endorses support from her [facility] community. JUDICIAL ASSISTANT discusses [facility] application through medicaid and patient gives consent for JUDICIAL ASSISTANT to fax intake referral. JUDICIAL ASSISTANT calls [facility] and leaves requesting return call. PT is consulted and evaluates patient and recommends SNF rehab. JUDICIAL ASSISTANT reviews patient with Annika GLOVER and identifies that patient's [employer] insurance is supplemental and patient's primary insurance is straight medicaid, at this time patient does not have admittable dx for 3 inpatient midnights to receive medicare coverage for SNF rehab. Covid Medicare voucher for SNF rehab is no longer in place. Patients options at this time are SNF rehab private pay, respite pay at [facility] or home with home health, family support and pending [facility] application for in home caregivers or patient's evaluated level of care needs. JUDICIAL ASSISTANT reviews this with patient and patient endorses concern for paying out of pocket for SNF/USP. Patient asks JUDICIAL ASSISTANT to call her daughter Licha (Ph. # [phone]), JUDICIAL ASSISTANT attempts to call patient's daughter Licha on two occasions but there is no answer and no availability to leave VM. Currently patient has visitors from her [facility], JUDICIAL ASSISTANT recommends letting them know about her situation to see if someone could stay with her at home. JUDICIAL ASSISTANT recommends life alert and provides patient with senior resource guide to review. Plan: JUDICIAL ASSISTANT to f/u with patient and family further, plan is private pay SNF/respite [facility] vs Home with Home Health/family support and pending [facility] application through medicaid. Magdalena Camarillo, CAR PUSHER
--- NOTE | 2023-06-15 17:58 | PC.NURSE ---
Pt remains in Emergency Department. There is no safe discharge home as of yet. HOUSE SITTER is involved and discussing w/ family. Pt remains afebrile, 1 assist to commode, utilizing call judge for needs.
[2023-06-15] MEDS: ENOXAPARIN 40 MG/0.4 ML SYRINGE SUBCUT (19:53)
--- NOTE | 2023-06-15 22:29 | PC.NURSE ---
ORDER DISPATCHER note: Patient is refusing SCDs, saying it's too much and too loud and too many things are buzzing.
[2023-06-16] VITALS (9 sets, daily range): BP systolic 144–178; BP diastolic 65–98; PULSE 73–109; RESP 16–18; TEMP 36.5–37.7; O2SAT 94–98; BMI 33.6
[2023-06-16] MEDS: ACETAMINOPHEN 325 MG TABLET 650 MG PO (03:48)
[2023-06-16] MEDS: cefTRIAXone 1,000 MG in SODIUM CHLORIDE 0.9% 100 ML 200 MG IV (08:17)
[2023-06-16 08:33] LABS: Add Manual Diff / Slide Review NO; Basophils Absolute Auto 100 /uL (0-100); Basophils Percent Auto 1.2 % (0-2); Eosinophils Absolute Auto 100 /uL (0-450); Eosinophils Percent Auto 2.4 % (2-4); Hematocrit 35.1 % (36-46); Hemoglobin 11.8 g/dL (12.0-16.0); Lymphocytes Absolute Auto 2000 /uL (1100-4500); Lymphocytes Percent Auto 38.8 % (25-40); Mean Corpuscular HGB Conc 33.8 % (30-36); Mean Corpuscular Hemoglobin 31.5 PG (26-34); Mean Corpuscular Volume 93.4 fL (80-100); Monocytes Absolute Auto 500 /uL (0-900); Monocytes Percent Auto 10.2 % (3-14); Neutrophils Absolute Auto 2500 /uL (1500-7000); Neutrophils Percent Auto 47.4 % (50-75); Platelet Count 255 X10^3/uL (150-400); Red Blood Cell Count 3.76 X10^6/uL (4.0-5.2); Red Cell Distribution Width 14.5 % (11.6-14.8); White Blood Cell Count 5.3 X10^3/uL (4.5-11.0)
[2023-06-16 08:46] LABS: BUN Creatinine Ratio 28.4 (6-22); Blood Urea Nitrogen 19 mg/dL (7-17); Calcium 9.6 mg/dL (8.4-10.2); Carbon Dioxide 27 mmol/L (22-32); Chloride 104 mmol/L (98-107); Estimated Glomerular Filt Rate > 60 mL/min (>60); Glucose 97 mg/dL (80-110); HEMOLYSIS < 15 (0-50); Potassium 4.3 mmol/L (3.4-5.1); Sodium 136 mmol/L (137-145)
--- NOTE | 2023-06-16 09:44 | PT.IPTN ---
Current Diagnoses Pain in right knee (06/14/23) Pain in left knee (06/14/23) Physical Therapy Treatment Note M2 PT-IP Current Condition Start: 06/15/23 11:45 Freq: Status: Active Protocol: Document 06/15/23 14:04 AW (Rec: 06/15/23 14:50 AW [id number]) Physical Therapy Current Condition Current Condition Evaluation Date 06/15/23 Treatment Diagnosis increasing falls frequency, B LE weakness; impaired mobility Onset Date 04/20/23 - date of first fall M3 PT-IP Subjective Start: 06/15/23 11:45 Freq: Status: Active Protocol: Document 06/16/23 09:10 MB (Rec: 06/16/23 09:43 MB [id number]) Subjective Physical Therapy Visit Type Type Treatment Note Visit Start Time 09:10 Visit Stop Time 09:35 Total Visit Minutes 25 Physical Therapy Visit Comments Patient Comments I'm just so scare about falling. Pt is hyperverbal and perseverates on fear of falling, not having help at home if she falls, not trusting her legs. Occ, she is difficult to redirect to task at hand. Therapy Pain Assessment Pain When Pain Assessed During Mobility Pain Present Pain Present Denied Pain M4 PT-IP Mobility and Gait Start: 06/15/23 11:45 Freq: Status: Active Protocol: Document 06/16/23 09:10 MB (Rec: 06/16/23 09:43 MB [id number]) PT-Bed Mobility Assessment Supine to Sit Supine to Sit Standby Assistance,1 Person Assistance,Head of Bed Elevated,Bedrails Sit to Supine Sit to Supine Standby Assistance,1 Person Assistance,Head of Bed Elevated,Bedrails Scooting Scooting to Edge of Bed Standby Assistance Scooting Up and Down in Bed Standby Assistance PT-Transfer Assessment Sit to and From Stand Sit to and from Stand Contact Guard Assistance,1 Person Assistance,Use of Upper Extremities Equipment Transfer Assistive Device Gait Belt,Front Wheeled Walker Orthotic/Prosthetic Devices or Brace: No Transfer Ability Level of Assist Contact Guard Assistance,1 Person Assistance,Use of Upper Extremities Comments Mobility Comments Pt is hyperverbal and con't to talk about fear of falling, needing her hands to stand up and not trusting her legs. She does have B hip and knee functional weakness with transfers. Ongoing PT commands to put on hand on the bed for STS rather than reaching both hands for the walker or keeping them on a walker. Gait Assessment Gait Gait Assistance Required: Contact Guard Assist,1 Person Assist Distance (Feet) 50 Assistive Devices Assistive Device Gait Belt,Front Wheeled Walker Orthotic/Prosthetic Devices or Brace: No Gait Deviations General Gait Pattern Decreased Stride Length, Decreased Feet Clearance,Step- to Gait,Wide Based Gait Comments Gait Comments Pt requires close CGA d/t reports of falling and pt ongoing verbalizations that she is fearful. Pt gait trains 50' twice with STS practice EOB between gait trials. PT-Balance Assessment Sitting Balance and Reactions Static Sitting Balance Ability Good Dynamic Sitting Balance Ability Good Standing Balance and Reactions Static Standing Balance Ability Fair Dynamic Standing Balance Ability Fair Device Used FWW M5 PT-IP Objective Assessments Start: 06/15/23 11:45 Freq: Status: Active Protocol: Document 06/15/23 14:04 AW (Rec: 06/15/23 14:50 AW [id number]) Orientation Orientation/Cognition Level of Alertness Alert Orientation Name,Day of Week,Place, Situation Language Function Ability No Deficits Noted Safety Awareness Understands Safety Issues Memory Description No Deficits Noted Gross Range of Motion Upper Extremity ROM Assessment Within Functional Limits Lower Extremity ROM Assessment Within Functional Limits Impairments Limited by habitus Strength Upper Extremity Strength Shoulder 4/5 flexion Elbow 4+/5 flexion 4/5 extension Lower Extremity Strength Assessment Bilaterally Impaired Hip 3-/5 flexion and extension Knee 4+/5 ext 4/5 flex Ankle 4+/5 DF Sensation Assessment Sensation Gross Sensation WNL M6 PT-IP Treatment Start: 06/15/23 11:45 Freq: Status: Active Protocol: Document 06/16/23 09:10 MB (Rec: 06/16/23 09:43 MB [id number]) Physical Therapy Treatment Other Treatments Other Treatment Performed STS EOB x5 reps with cues to have one hand on the bed and pt tends to keep both hands on the RW or reach for RW, distractable d/t perseveration on fear at home M7 PT-IP Assessment and Plan Start: 06/15/23 11:45 Freq: Status: Active Protocol: Document 06/16/23 09:10 MB (Rec: 06/16/23 09:43 MB [id number]) PT Summary Assessment and Plan Potential Rehabilitation Potential Good Status of Condition at Evaluation Evolving Summary Impairments Pain,ROM,Strength,Balance,Bed Mobility,Transfers,Gait Assessment Summary Magalis is progressing towards PT goals and will benefit from SNF at d/c. Hyperverbality and perseveration on fear of falling and being at home alone are occ barriers and PT must continually redirect her, especially with hand placement for STs. Goals Bed Mobility Goal Independent Transfer Goal Independent,Front Wheeled Walker Gait Goal Independent,Front Wheel Walker Gait Distance 150 Other Goals - up/down 2 steps using hand rail with SBA Days to Meet Goals 10 Frequency of Treatment Frequency Of Treatment Once a Day Treatment Plan Physical Therapy Treatment Plan Bed Mobility Training,Transfer Training,Gait Training, Therapeutic Exercise,Balance Retraining,Discharge Planning, Hot or Cold Pack Other Recommendations and Next Treatment Recommend OT order if pt is Focus admitted. Recommendations To Nursing Amount of Assist Needed 1 Person Assist Discharge Recommendations PT Discharge Recommendations SNF Rehab Transportation Needs at Discharge Private Vehicle
[2023-06-16] MEDS: polyethylene glycoL 3350 17 GM POWD.PACK PO (09:52)
--- NOTE | 2023-06-16 12:10 | CM.SWNOTE ---
ED IMMIGRATION ASSOCIATE Note/DCP continued PT evaluates patient this morning and continues to recommend SNF rehab, patient is 1 person assist. IMMIGRATION ASSOCIATE receives VM from patient's daughter Licha (Ph. # [phone]). IMMIGRATION ASSOCIATE returns call and explains the situation, Licha states that she believes her family cannot afford to pay out of pocket costs for SNF rehab. Licha states that she will reach out to all of her siblings and see what they can do. IMMIGRATION ASSOCIATE discusses alternative option of home health and natural supports staying with her or checking in on her and looking into getting a caregiver. IMMIGRATION ASSOCIATE receives VM from [facility], it is reported that patient does not have Medicaid but has Medicare Savings plan. IMMIGRATION ASSOCIATE fills out Medicaid aging/blind/disabled/LTC coverage application with patient and faxes it [facility] for review. Patient denies any assets, states her income is $1400 of SSI, she has very little in her bank account, owns nothing and pays $650/month for rent and utilities to her son. Patient endorses that she is slowly increasing her confidence after working with PT again, but endorses concern for her UTI. Currently a oriental orthodox member was meeting with patient and it is reported that some oriental orthodox members could check on patient more often if patient returns home. Patient endorses her preference is to go to SNF rehab but she does not think her family could pay for it and would not be opposed to HH. Patient endorses concern for son Reed who has had to pick her up off the floor several times and now has back issues. IMMIGRATION ASSOCIATE reviews patient with Care management team, ED consults with Hospitalist and patient has been accepted as OBS for UTI. IMMIGRATION ASSOCIATE calls daughter Licha and informs her of this observational admit. Plan: continue to f/u with family regarding Private pay SNF rehab vs. Home with home health and natural supports. Medicaid application pending. VICTORIANO FrankSW
--- NOTE | 2023-06-16 14:35 | PM.HP.1 ---
History of Present Illness History of Present Illness Date Patient Seen: 06/16/23 Time Patient Seen: 14:35 Chief complaint: Spinal fx 1mo ago Narrative: The patient presents with multiple falls. She describes a history of bilateral knee replacements over the last several years. The patient had after this attained a nice level of function was able to ambulate relatively briskly and had no real issues. In April, she had a fall and sustained a compression fracture of L1. She was seen by Orthopedics and conservative management was recommended. The patient has had some improvement of pain since then but describes progressive weakness of her legs, essentially at the upper thighs. She has had a sequence of progressive falls, 5 in all. The last fall preceded her visit to the emergency department. She was found to have evidence of a urinary tract infection in the ER did recount a urgent care visit about a week prior for hematuria. She denies fevers, or chills. [place] [facility] [place]. She denies any specific injury with her recent falls but notes that she is having great difficulty getting into a standing position from lying. She is quite fearful that she will injure herself from ongoing falls. She is hopeful that the urinary tract infection may relate to her increased weakness and that its treatment may improve her symptoms. She denies bowel or bladder difficulties. She also notes she is been on tramadol, and thought that this was causing some mental confusion and start a taper this from 1 tablet HS to 1/2 tablet HS. She denies history of bowel or bladder dysfunction but has been somewhat constipated from the tramadol having about 1 bowel movement every 7 days. She denies any current hematuria, chest pain, cough or shortness of breath. No leg swelling. No leg pain. No radicular symptoms. 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 Mother No problems noted. 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 [place] (both parents work) Meds Home Medications and Allergies Home Medications Medication Instructions Recorded Confirmed Type cholecalciferol (vitamin D3) 25 25 mcg PO DAILY 07/23/20 06/16/23 History mcg (1,000 unit) capsule (Vitamin D3) vitamin B complex 1 cap PO DAILY 07/23/20 06/16/23 History ascorbic acid (vitamin C) 500 mg 500 mg PO DAILY 02/26/21 06/16/23 History tablet magnesium 250 mg tablet 250 mg PO DAILY 02/26/21 06/16/23 History zinc 50 mg tablet 50 mg PO DAILY 02/26/21 06/16/23 History Allergies Allergy/AdvReac Type Severity Reaction Status Date / Time rivaroxaban [From XARELTO] Allergy Mild HIVES Verified 11/29/22 17:14 dabigatran etexilate AdvReac Unknown Reflux Verified 11/29/22 17:14 [From Pradaxa] Review of Systems Review of Systems Narrative: All else reviewed and otherwise negative. Exam Vital Signs (past 8 hours): - 06/16/23 08:22 06/16/23 08:22 06/16/23 08:23 Temperature Pulse Rate 96 H 97 H Respiratory Rate 18 Blood Pressure 145/71 H Blood Pressure [Right Arm] 145/71 H Pulse Oximetry 95 97 Oxygen Delivery Method Room Air 06/16/23 08:40 06/16/23 09:00 06/16/23 11:44 Temperature 98.5 F Pulse Rate 103 H 77 Respiratory Rate Blood Pressure Blood Pressure [Right Arm] Pulse Oximetry 94 95 96 Oxygen Delivery Method 06/16/23 11:45 06/16/23 11:45 Temperature Pulse Rate 73 Respiratory Rate Blood Pressure 144/73 H Blood Pressure [Right Arm] Pulse Oximetry 96 Oxygen Delivery Method Oxygen Delivery Method Room Air Oxygen Flow Rate 0 Narrative Exam Narrative: NAD, alert and oriented x3. Normal speech and thought content. Normocephalic skull. Pupils are symmetric, EOMI. No facial droop, normal oral mucosa. Neck is supple, midline trachea. Lungs are clear, normal effort. Heart is regular, normal rate. Abdomen is soft, nontender. Nondistended. Extremities are free of edema. Joints are also unremarkable, she has stigmata of bilateral knee replacement. Skin is otherwise free of rash or lesions. She is no adenopathy. Motor strength is 5/5 all major groups of the lower extremities with the exception of hip flexors which are barely 4+ out of 5 bilaterally. Objective Imaging MRI - lumbar: Radiologist's impression: Subacute fracture again seen involving the L4 vertebral body. The imaging appearance is most consistent with an osteoporotic fracture. A pathologic fracture is possible, yet considered to be less likely. Underlying degenerative changes are seen, which are worst at the L3-L4 level, where there is moderate to severe bilateral neural foraminal narrowing. No abnormal enhancement is seen. Mild levoconvex scoliotic curvature is noted. Labs 06/16/23 08:25 06/16/23 08:25 Labs: Laboratory Results - last 24 hr 06/16/23 08:25 WBC 5.3 RBC 3.76 L Hgb 11.8 L Hct 35.1 L MCV 93.4 MCH 31.5 MCHC 33.8 RDW 14.5 Plt Count 255 Neut % (Auto) 47.4 L Lymph % (Auto) 38.8 Treasure % (Auto) 10.2 Eos % (Auto) 2.4 Baso % (Auto) 1.2 Neut # (Auto) 2500 Lymph # (Auto) 2000 Treasure # (Auto) 500 Eos # (Auto) 100 Baso # (Auto) 100 Sodium 136 L Potassium 4.3 Chloride 104 Carbon Dioxide 27 BUN 19 H Creatinine 0.67 Estimated GFR > 60 BUN/Creatinine Ratio 28.4 H Glucose 97 Calcium 9.6 Assessment & Plan Assessment & Plan narrative: 1. Urinary tract infection with Gram-negative bacillus and culture, and negative blood cultures. Present on admission and active. 2. Subacute lumbar 1 compression fracture, present on admission and active. 3. Degenerative lumbar spine changes with evidence of spinal stenosis, present on admission and active 4. Progressive proximal leg weakness bilaterally, present on admission and active. 5. Venous insufficiency, present on admission and active. 6. Remote pulmonary emboli, not present on admission are active. 7. Hypertension, present on admission and stable. 8. Hyperlipidemia, present on admission and stable. Plan: -Continue antibiotics and follow cultures. -Physical therapy to evaluate weakness. -Resume usual medications. -may need to consult ortho or spine depending on progress. She is full code, confirmed. Her son is proxy decision maker. She is anticipated to require 2 midnights of hospital care. She is admitted to inpatient status. Time Spent With Patient Time with patient: 30 to 49 minutes with 50% spent counseling/coordinating care Quality VTE Deep Vein Thrombosis/Pulmonary Embolism Present on Admission: No
[2023-06-16] MEDS: DOCUSATE 100 MG CAPSULE PO ×2 (17:00→20:12)
[2023-06-16] MEDS: ENOXAPARIN 40 MG/0.4 ML SYRINGE SUBCUT (17:00)
[2023-06-17] MEDS: ACETAMINOPHEN 325 MG TABLET 650 MG PO (00:56)
[2023-06-17 06:43] VITALS: BP 171/84; PULSE 96; RESP 18; TEMP 37.3; O2SAT 96
[2023-06-17 06:51] VITALS: BP 154/80; PULSE 91
[2023-06-17 07:30] VITALS: BP 150/76; PULSE 94; TEMP 35.7; O2SAT 100
[2023-06-17] MEDS: DOCUSATE 100 MG CAPSULE PO ×2 (08:23→20:35)
[2023-06-17] MEDS: polyethylene glycoL 3350 17 GM POWD.PACK PO (08:23)
[2023-06-17] MEDS: ENOXAPARIN 40 MG/0.4 ML SYRINGE SUBCUT (08:24)
[2023-06-17 09:15] LABS: Add Manual Diff / Slide Review NO; Basophils Absolute Auto 0 /uL (0-100); Basophils Percent Auto 0.7 % (0-2); Eosinophils Absolute Auto 100 /uL (0-450); Eosinophils Percent Auto 2.9 % (2-4); Hematocrit 36.3 % (36-46); Hemoglobin 12.3 g/dL (12.0-16.0); Lymphocytes Absolute Auto 1700 /uL (1100-4500); Lymphocytes Percent Auto 37.2 % (25-40); Mean Corpuscular HGB Conc 33.8 % (30-36); Mean Corpuscular Hemoglobin 31.8 PG (26-34); Mean Corpuscular Volume 93.8 fL (80-100); Monocytes Absolute Auto 400 /uL (0-900); Monocytes Percent Auto 8.2 % (3-14); Neutrophils Absolute Auto 2300 /uL (1500-7000); Platelet Count 260 X10^3/uL (150-400); Red Blood Cell Count 3.87 X10^6/uL (4.0-5.2); Red Cell Distribution Width 13.7 % (11.6-14.8); White Blood Cell Count 4.5 X10^3/uL (4.5-11.0)
[2023-06-17 09:27] LABS: BUN Creatinine Ratio 33.3 (6-22); Blood Urea Nitrogen 22 mg/dL (7-17); Calcium 9.5 mg/dL (8.4-10.2); Carbon Dioxide 28 mmol/L (22-32); Chloride 99 mmol/L (98-107); Estimated Glomerular Filt Rate > 60 mL/min (>60); Glucose 140 mg/dL (80-110); HEMOLYSIS < 15 (0-50); Potassium 3.6 mmol/L (3.4-5.1); Sodium 135 mmol/L (137-145)
--- NOTE | 2023-06-17 11:05 | PT.IPTN ---
Current Diagnoses Pain in right knee (06/16/23) Pain in left knee (06/16/23) Physical Therapy Treatment Note M2 PT-IP Current Condition Start: 06/15/23 11:45 Freq: Status: Active Protocol: Document 06/15/23 14:04 AW (Rec: 06/15/23 14:50 AW [id number]) Physical Therapy Current Condition Current Condition Evaluation Date 06/15/23 Treatment Diagnosis increasing falls frequency, B LE weakness; impaired mobility Onset Date 04/20/23 - date of first fall M3 PT-IP Subjective Start: 06/15/23 11:45 Freq: Status: Active Protocol: Document 06/17/23 11:05 AB (Rec: 06/17/23 12:27 AB [id number]) Subjective Physical Therapy Visit Type Type Treatment Note Visit Start Time 11:05 Visit Stop Time 11:30 Total Visit Minutes 25 Number of DEPENDENCY COUNSELOR Visits 0 Physical Therapy Visit Comments Patient Comments agreeable to do PT M4 PT-IP Mobility and Gait Start: 06/15/23 11:45 Freq: Status: Active Protocol: Document 06/17/23 11:05 AB (Rec: 06/17/23 12:27 AB [id number]) PT-Bed Mobility Assessment Rolling Type of Rolling Log Rolling Level of Assist Standby Assistance Supine to Sit Supine to Sit Standby Assistance,Head of Bed Elevated PT-Transfer Assessment Sit to and From Stand Sit to and from Stand Minimal Assistance,Moderate Assistance,Maximum Assistance, 1 Person Assistance,Use of Upper Extremities Equipment Transfer Assistive Device Gait Belt,Front Wheeled Walker Orthotic/Prosthetic Devices or Brace: No Transfers Transfer Destination Chair Transfer Technique Stand Step Pivot Transfer Ability Level of Assist Contact Guard Assistance, Minimal Assistance,1 Person Assistance,Use of Upper Extremities Comments Mobility Comments pt supine in bed and agreeable to do PT. pt keeps repeating that she has fallen a lot at home and is afraid of falling again. pt easily gets distracted and needs cues for redirection. pt completed supine to sit SBA log roll with HOB elevated ~ 20 deg. pt used bed rail to assist. pt is able to sit on EOB SBA. completed sit to stand mod A with pt pulling on FWW to assist and with max A for standing balance on initial standing due to posterior LOB while pulling on FWW. instructed pt to sit back on EOB. educated pt on sit<>stand techniques. pt completed sit to stand x 4 reps mod to max A and max cues . pt tends to not push with BLE and with heavy UE use to stand requiring several attempts to be able to stand up. pt completed step transfer to chair using FWW min A. completed sit<>stand from chair x 4 reps min to mod A and max cues but pt continues to push heavily with UE on arms instead of pushing with BLE. pt completed seated push up from chair with 5 sec midway hold with focus on LE activation x 3 reps. pt rested and agreed to ambulate. completed sit to stand mod to max A from chair and ambulated in room using FWW ~ 40 ft requiring min A with initial ambulation but only requiring CGA towards end of ambulation. cued for quads activation and stabilization with each step especially on LLE. pt agreed to stay seated on the chair. positioned pt on the chair. call light and table placed within reach. Gait Assessment Gait Gait Assistance Required: Contact Guard Assist,Minimum Assistance Distance (Feet) 40 Able to Maintain Weight Bearing Status Yes During Gait Assistive Devices Assistive Device Gait Belt,Front Wheeled Walker Orthotic/Prosthetic Devices or Brace: No Gait Deviations General Gait Pattern Decreased Stride Length, Decreased Feet Clearance, Narrow Based Gait Factors Limiting Gait Function Factors Limiting Gait Function Decreased Activity Tolerance, Decreased Strength,Difficulty Following Directions,Limited Range of Motion,Poor Balance, Poor Safety Awareness M5 PT-IP Objective Assessments Start: 06/15/23 11:45 Freq: Status: Active Protocol: Document 06/15/23 14:04 AW (Rec: 06/15/23 14:50 AW [id number]) Orientation Orientation/Cognition Level of Alertness Alert Orientation Name,Day of Week,Place, Situation Language Function Ability No Deficits Noted Safety Awareness Understands Safety Issues Memory Description No Deficits Noted Gross Range of Motion Upper Extremity ROM Assessment Within Functional Limits Lower Extremity ROM Assessment Within Functional Limits Impairments Limited by habitus Strength Upper Extremity Strength Shoulder 4/5 flexion Elbow 4+/5 flexion 4/5 extension Lower Extremity Strength Assessment Bilaterally Impaired Hip 3-/5 flexion and extension Knee 4+/5 ext 4/5 flex Ankle 4+/5 DF Sensation Assessment Sensation Gross Sensation WNL M6 PT-IP Treatment Start: 06/15/23 11:45 Freq: Status: Active Protocol: Document 06/17/23 11:05 AB (Rec: 06/17/23 12:27 AB [id number]) Physical Therapy Treatment Education Education Provided Precautions,Safety M7 PT-IP Assessment and Plan Start: 06/15/23 11:45 Freq: Status: Active Protocol: Document 06/17/23 11:05 (Rec: 06/17/23 12:27 [id number]) PT Summary Assessment and Plan Potential Rehabilitation Potential Fair Summary Impairments Pain,ROM,Strength,Balance, Coordination,Sensation,Tone, Cognition,Bed Mobility, Transfers,Gait,Activity Tolerance Progress Towards Goals Slow Progress due to Activity Tolerance,Slow Progress - Other Assessment Summary pt requiring mod to max A for sit to stand and presents with BLE weakness L>R. pt will require 05/01 assist and will benefit from SNF rehab to improve overall strength and mobility independence. Goals Bed Mobility Goal Independent Transfer Goal Independent,Front Wheeled Walker Gait Goal Independent,Front Wheel Walker Gait Distance 150 Other Goals - up/down 2 steps using hand rail with SBA Days to Meet Goals 10 Frequency of Treatment Frequency Of Treatment Once a Day Treatment Plan Physical Therapy Treatment Plan Bed Mobility Training,Transfer Training,Gait Training, Therapeutic Exercise,Balance Retraining,Discharge Planning, Hot or Cold Pack Recommendations To Nursing Amount of Assist Needed 1 Person Assist Discharge Recommendations PT Discharge Recommendations SNF Rehab Transportation Needs at Discharge Wheelchair/Cabulance
[2023-06-17] MEDS: cefTRIAXone 1,000 MG in SODIUM CHLORIDE 0.9% 100 ML 200 MG IV (11:35)
--- NOTE | 2023-06-17 13:57 | OT.IP.EVAL ---
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) Essential hypertension Excessive daytime sleepiness (~2008) Generalized osteoarthritis GERD without esophagitis History of falling Intentional weight loss Intentional weight loss eligibility counselor associated with adverse incidents Mixed hyperlipidemia Morbid obesity with BMI of 40.0-44.9, adult Nocturnal hypoxemia Obstructive sleep apnea of adult (~2008) Other pulmonary embolism with acute cor pulmonale Primary osteoarthritis of left knee Pulmonary emboli (~2007) Seasonal allergies Stasis dermatitis Venous insufficiency Surgical History (Last Reviewed 06/14/23 @ 23:43 by Opal Coulter MD) H/O bilateral cataract extraction History of arthroplasty of left knee (07/24/20) History of cholecystectomy History of salpingo-oophorectomy Occupational Therapy Inpatient Evaluation/Re-Eval M1 PT/OT-IP Prior Functional Status Start: 06/17/23 14:29 Freq: NEEDED Status: Active Protocol: Document 06/17/23 14:30 [facility] (Rec: 06/17/23 15:16 [facility] [id number]) Medical Review Prior Functional Status Medical History Reviewed Yes Communication WNL. Mobility and Gait Pt is independently mobile at baseline, does not use any assisted device. She has had bilateral TKA in the past few years and worked hard in PT to get to the point where she could transition to community fitness. She enjoys gentle yoga and pool aerobics. Pt states since her fall and late April has been using the fww to walk with. Activities of Daily Living and IADL's Independent. Prior Functional Level (Other details) Pt states she has become more reliant on her FWW for mobility. She has been taking only sponge baths after a recent fall in the shower. Social History Household Members none Living Arrangements House Number of Floors (Floors) One Floor Number of Stairs To Enter/Railing? 2 [place] with left side railing Home Environment Standard Height Toilet,Walk in Shower Home Equipment Front Wheel Walker,Bedside Commode Employment Status Retired Additional Social History Comment Pt states has walking sticks. M2 OT-IP Current Condition Start: 06/17/23 14:29 Freq: Status: Active Protocol: Document 06/17/23 14:30 [facility] (Rec: 06/17/23 15:16 [facility] [id number]) Occupational Therapy Current Condition Current Condition Evaluation Date 06/17/23 Treatment Diagnosis L4 subacute fx, frequent falls Diagnosis Onset Date 06/16/23 Post Operative Precautions Lumbar Precautions Log Roll,No Twisting,Limit Bending,Lifting Restriction of 10 lbs M3 OT- IP Subjective and Pain Start: 06/17/23 14:29 Freq: Status: Active Protocol: Document 06/17/23 14:30 [facility] (Rec: 06/17/23 15:16 [facility] [id number]) OT- Subjective Occupational Therapy Visit Type Type Initial Evaluation Visit Start Time 13:12 Visit Stop Time 13:57 Total Visit Minutes 45 Occupational Therapy Visit Comments Patient Comments Pt agreed to get up. Patient/Caregiver Goals To go home. OT Pain Assessment Pain When Pain Assessed During Mobility Pain Present Pain Present Pain Reported M4 OT- IP ADL's Start: 06/17/23 14:29 Freq: Status: Active Protocol: Document 06/17/23 14:30 [facility] (Rec: 06/17/23 15:16 [facility] [id number]) OT STU-Eeth-Gzsmnjj Comments OT Self-Feeding Comments Not performed. OT ADL-Grooming Comments OT Grooming Comments Not performed. OT ADL-Oral Care Comments Oral Care Comments Not performed. OT ADL-Dressing General Eval Lower Body Dressing Ability Maximum Assistance Areas Needing Assistance Socks Assistive Devices Dressing Assistive Devices Medical And Health Services Manager,Sock Aid Comments OT Dressing Comments Able to show pt use of cheese specialist and sock aid for LB dressing needs. Pt still needing extensive assist to stand. OT ADL-Toileting Comments OT Toileting Comments Pt states just used the commode earlier. OT ADL-Bathing Comments OT Bathing Comments Spoke to pt regarding equipment option for safety for her walk in shower. M5 OT- IP IADL's Start: 06/17/23 14:29 Freq: Status: Active Protocol: Document 06/17/23 14:30 [facility] (Rec: 06/17/23 15:16 [facility] [id number]) OT-Instrumental Activities of Daily Living Deficits IADL Deficits Identified Deficits Home Safety Awareness Awareness of Need for Assistance at Home Good Awareness Medication Management Medication Management Comments Pt was able to do prior. Money Management Money Management Comments Prior pt was able to do it on her own. Meal Preparation Meal Preparation Comments Prior pt was able to do it, but will now need assist. Recreation Program Coordinator Recreation Program Coordinator Comments Pt will need assist. M6 OT- IP Functional Cognition Start: 06/17/23 14:29 Freq: Status: Active Protocol: Document 06/17/23 14:30 [facility] (Rec: 06/17/23 15:16 [facility] [id number]) Cognitive Factors Limiting Selfcare Function Cognitive Ability Level of Alertness Alert Patient Orientation Name,Age,Birthday,Month,Date, Year,Day of Week,Place, Situation Attention Span Ability Capable of Focused Attention, Capable of Sustained Attention Ability to Follow Commands Able to Follow One Step Commands Cognitive Comments Cognitive Assessment Comments Pt able to follow commands for ADL and mobility needs and getting anxious and that her BP going up. Educated pt on trying to relax and to try not to get worked up about things she can not control. Pt will benefit from a cognitive assessment. OT- Vision and Hearing OT- Hearing Assessment OT- Hearing Assessment WFL OT- Vision Assessment Visual Acuity Glasses All The Time Visual Attentiveness WFL Occular Pursuits WFL Visual Convergence WFL M7 OT- IP Mobility and Balance Start: 06/17/23 14:29 Freq: Status: Active Protocol: Document 06/17/23 14:30 [facility] (Rec: 06/17/23 15:16 [facility] [id number]) OT- Bed Mobility Assessment Supine to Sit Supine to Sit Assist Moderate Assistance Sit to Supine Sit to Supine Assist Moderate Assistance OT-Transfer Assessment Sit to and From Stand Sit to and from Stand Moderate Assistance Comments Mobility Comments MODA to help lift her LLE back into bed. MODA x1 to stand to the FWW. BP 127/94 and then 133/104, hospitalist came in and notified him or high BP and difficulty for pt to move her LLE. OT- Balance Assessment Sitting Balance and Reactions Static Sitting Balance Ability Good Dynamic Sitting Balance Ability Fair Standing Balance and Reactions Static Standing Balance Ability Fair M8 OT- IP Objective Assessments Start: 06/17/23 14:29 Freq: Status: Active Protocol: Document 06/17/23 14:30 [facility] (Rec: 06/17/23 15:16 [facility] [id number]) OT Gross Range of Motion Upper Extremity Range of Motion Assessment Within Functional Limits OT Strength Comments Strength Comments NT due to her back pain, pt strength at least 4-/5 throughout OT- Coordination Assessment Upper Extremity Finger to Nose Test Within Functional Limits OT-Muscle Tone Assessment Muscle Tone WNL Yes M9 OT- IP Assessment and Plan Start: 06/17/23 14:29 Freq: Status: Active Protocol: Document 06/17/23 14:30 [facility] (Rec: 06/17/23 15:16 [facility] [id number]) OT Summary Assessment and Plan Potential Rehabilitation Potential Good Analytic Complexity at Evaluation Moderate Summary OT Impairments Pain,Strength,Balance, Functional Mobility,Grooming, Dressing,Toileting,Bathing, Toilet Transfers,Shower Transfers,Activity Tolerance Progress Towards Goals Slow Progress due to Pain,Slow Progress due to Medical Issues,Slow Progress due to Activity Tolerance Assessment Summary Pt MOD complexity and for months has been declining in her mobility and relying on the FWW and heavy use of her hands on the FWW. Pt will benefit from skilled rehab prior to going home in addition to getting equipment needs for home to increased her safety and independence. Goals Self-Feeding Goal Independent Grooming Goal Independent Dressing Goal Independent Toileting Goal Independent Bathing Goal Independent Toilet Transfer Goal Independent Shower Transfer Goal Independent Days to Meet Goals 25 Frequency of Treatment Frequency Of Treatment Once a Day Treatment Plan OT Treatment Plan ADL Training,Functional Mobility,Patient/Family Education,Discharge Planning Other Treatment Recommendations and Next Congnitive assessment Treatment Focus Discharge Recommendations OT Discharge Recommendations SNF Rehab Transportation Needs at Discharge Wheelchair/Cabulance
--- NOTE | 2023-06-17 14:18 | P.PN_ITS ---
Subjective Subjective Interval history: She is doing well. Denies back pain. She does have a lot of proximal leg weakness. Her left thigh is weaker than her right thigh with a straight leg raise. Her extension her left knee is 4- today and it is relatively normal of the right knee. Her ability to dorsi and plantar flexes the foot is normal. MRI reviewed by Dr Jin ([phone]), orthopod who has recently seen her. Exam Vital Signs (past 8 hours): - 06/17/23 06:43 06/17/23 06:51 06/17/23 07:30 Temperature 99.1 F 96.2 F L Pulse Rate 96 H 91 H 94 H Respiratory Rate 18 Blood Pressure 171/84 H 154/80 H 150/76 H Pulse Oximetry 96 100 Oxygen Flow Rate 0 Oxygen Delivery Method Room Air Oxygen Flow Rate 0 Narrative Exam Narrative: No acute distress, fluent speech. Somewhat anxious. Symmetric pupils, EOMI. Neck is supple. Lungs are clear, normal effort. Heart is regular, no murmur. Abdomen is non-distended. Extremities are free of edema. She does have proximal leg weakness with difficulty with straight leg raising in the bed, left she can bring up several cm in hold for very short time right she can bring up for about 20 seconds. She has good extension at the knee on the right and slightly weaker extension on the left as well as good plantar and dorsiflexion. There is no obvious atrophy. Objective Labs 06/17/23 08:49 06/17/23 08:49 Labs: Laboratory Results - last 24 hr 06/17/23 08:49 WBC 4.5 RBC 3.87 L Hgb 12.3 Hct 36.3 MCV 93.8 MCH 31.8 MCHC 33.8 RDW 13.7 Plt Count 260 Neut % (Auto) 51.0 Lymph % (Auto) 37.2 Hodgeman % (Auto) 8.2 Eos % (Auto) 2.9 Baso % (Auto) 0.7 Neut # (Auto) 2300 Lymph # (Auto) 1700 Hodgeman # (Auto) 400 Eos # (Auto) 100 Baso # (Auto) 0 Sodium 135 L Potassium 3.6 Chloride 99 Carbon Dioxide 28 BUN 22 H Creatinine 0.66 Estimated GFR > 60 BUN/Creatinine Ratio 33.3 H Glucose 140 H Calcium 9.5 PFSH Medical History History of falling hat mender associated with adverse incidents Intentional weight loss Mixed hyperlipidemia Essential hypertension 1+ pitting edema Venous insufficiency Stasis dermatitis Intentional weight loss Seasonal allergies Generalized osteoarthritis GERD without esophagitis Other pulmonary embolism with acute cor pulmonale 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 Mother No problems noted. 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 Urinary tract infection with Gpan-senstive E. coli, and negative blood cultures. Present on admission and active. 2. Subacute lumbar 1 compression fracture, present on admission and active. 3. Degenerative lumbar spine changes with evidence of spinal stenosis, present on admission and active 4. Progressive proximal leg weakness bilaterally, present on admission and active. 5. Venous insufficiency, present on admission and active. 6. Remote pulmonary emboli, not present on admission are active. 7. Hypertension, present on admission and stable. 8. Hyperlipidemia, present on admission and stable. Plan: -Continue antibiotics and follow cultures. -Physical therapy to evaluate weakness. -continue usual medications. -discussed the case with Dr. Jin of Orthopedics who reviewed her lumbar MRI. He was concerned about superior endplate retropulsion at her L4 compression causing some degree of stenosis at the L3-L4 level. He discuss this with Dr. Vance, spine surgery at [facility] who did review the MRI. Dr. Vance felt that there was no need for urgent surgical intervention and that conservative management would continue to make sense. He recommended outpatient follow-up in the next couple of weeks. Dr. Jin did want to limit the amount of bending, lifting, and twisting. He was somewhat reluctant to continue physical therapy but this really will be required if she is going to improve her level of function with her profound proximal leg weakness. Anticipation is for [facility], physical therapy will be advised to avoid bending, lifting or twisting. The patient will also be placed on 20 mg of prednisone for 3 days for anti-inflammatory effect see if this improves her symptoms. She was reluctant to take a higher dose or a longer duration. Her outpatient appointment with Dr. Vance could happen while she is at [facility]. A referral was placed by Dr. Jin for this appointment. She is full code, confirmed. Her son is proxy decision maker. She is anticipated to require 2 midnights of hospital care. She was admitted to inpatient status. Quality VTE Deep Vein Thrombosis/Pulmonary Embolism Present on Admission: No
[2023-06-17 15:00] VITALS: BP 147/67; PULSE 99; RESP 18; TEMP 37.1; O2SAT 98
[2023-06-17] MEDS: predniSONE 20 MG TABLET PO (15:20)
[2023-06-17 22:41] VITALS: BP 158/81; PULSE 105; RESP 20; TEMP 37.1; O2SAT 96
[2023-06-18 08:00] VITALS: BP 153/51; PULSE 70; RESP 16; TEMP 36.1; O2SAT 98
[2023-06-18] MEDS: ENOXAPARIN 40 MG/0.4 ML SYRINGE SUBCUT (09:36)
[2023-06-18] MEDS: predniSONE 20 MG TABLET PO (09:37)
--- NOTE | 2023-06-18 10:18 | PT.IPTN ---
Current Diagnoses Pain in right knee (06/16/23) Pain in left knee (06/16/23) Physical Therapy Treatment Note M2 PT-IP Current Condition Start: 06/15/23 11:45 Freq: Status: Active Protocol: Document 06/15/23 14:04 AW (Rec: 06/15/23 14:50 AW [id number]) Physical Therapy Current Condition Current Condition Evaluation Date 06/15/23 Treatment Diagnosis increasing falls frequency, B LE weakness; impaired mobility Onset Date 04/20/23 - date of first fall M3 PT-IP Subjective Start: 06/15/23 11:45 Freq: Status: Active Protocol: Document 06/18/23 10:06 MB (Rec: 06/18/23 10:18 MB [id number]) Subjective Physical Therapy Visit Type Type Treatment Note Visit Start Time 09:00 Visit Stop Time 09:47 Total Visit Minutes 47 Number of LEAD SETTER Visits 0 Physical Therapy Visit Comments Patient Comments I don't know what order I am supposed to do this in. I need to go to the bathroom and I'm supposed to have a shower. Pt con't to be very hyperverbal and requiring constant cues to stay on task Therapy Pain Assessment Pain When Pain Assessed After Treatment Pain Present Pain Present Pain Reported Location Left knee Intensity 4 Scale Used Numeric (0 - 10) M4 PT-IP Mobility and Gait Start: 06/15/23 11:45 Freq: Status: Active Protocol: Document 06/18/23 10:06 MB (Rec: 06/18/23 10:18 MB [id number]) PT-Bed Mobility Assessment Sit to Supine Sit to Supine Standby Assistance,1 Person Assistance,Bedrails Scooting Scooting to Edge of Bed Standby Assistance Scooting Up and Down in Bed Standby Assistance PT-Transfer Assessment Sit to and From Stand Sit to and from Stand Standby Assistance,Contact Guard Assistance,Moderate Assistance,1 Person Assistance ,Use of Upper Extremities Equipment Transfer Assistive Device Gait Belt,Front Wheeled Walker Orthotic/Prosthetic Devices or Brace: No Transfers Transfer Destination Toilet Transfer Technique Stepping Transfer Ability Level of Assist Standby Assistance,Contact Guard Assistance,Moderate Assistance,1 Person Assistance ,Use of Upper Extremities Comments Mobility Comments Pt requires cues to push up from the chair and not the walker from the chair. SBA for stand to sit on the bed, use of RW. Min-mod A to stand up from low commode with left hand on rail and right hand on walker. Gait Assessment Gait Gait Assistance Required: Contact Guard Assist,1 Person Assist Distance (Feet) 70 Able to Maintain Weight Bearing Status Yes During Gait Assistive Devices Assistive Device Gait Belt,Front Wheeled Walker Orthotic/Prosthetic Devices or Brace: No Gait Deviations General Gait Pattern Decreased Stride Length, Decreased Feet Clearance Factors Limiting Gait Function Factors Limiting Gait Function Decreased Activity Tolerance, Decreased Strength,Poor Balance,Poor Safety Awareness Comments Gait Comments Pt gait trains 15'x1 with CGA and RW; 70'x1, 70'x1 with similar assistance Stair Climbing Assessment Evaluation Level of Assist On Stairs Minimal Assistance,Maximal Assistance,1 Person Assistance Devices Stair Climbing Assistive Devices Left Railing Technique/Endurance Stair Climbing Direction Ascend and Descend Stair Climbing Technique Step to Step Number of Steps Climbed 3 Stair Climbing Set # Repetitions (reps) 1 Comments Stair Climbing Comments Pt requires constant verbal cueing to stay on task d/t hyperverbality and trouble command following. She is able to ascend step to step with right foot first and both hands on left rail. Upon first attempt to step down with left foot first, her left leg shawn and PT assists in lowering her to sitting. She does not hit any part of her body. She is able to rest and then get back to gait to room with similar CGA and RW. She c /o 4/10 left knee pain afterwards and nsg aware. PT-Balance Assessment Sitting Balance and Reactions Static Sitting Balance Ability Good Dynamic Sitting Balance Ability Good Standing Balance and Reactions Static Standing Balance Ability Fair Dynamic Standing Balance Ability Fair Device Used FWW M5 PT-IP Objective Assessments Start: 06/15/23 11:45 Freq: Status: Active Protocol: Document 06/15/23 14:04 AW (Rec: 06/15/23 14:50 AW [id number]) Orientation Orientation/Cognition Level of Alertness Alert Orientation Name,Day of Week,Place, Situation Language Function Ability No Deficits Noted Safety Awareness Understands Safety Issues Memory Description No Deficits Noted Gross Range of Motion Upper Extremity ROM Assessment Within Functional Limits Lower Extremity ROM Assessment Within Functional Limits Impairments Limited by habitus Strength Upper Extremity Strength Shoulder 4/5 flexion Elbow 4+/5 flexion 4/5 extension Lower Extremity Strength Assessment Bilaterally Impaired Hip 3-/5 flexion and extension Knee 4+/5 ext 4/5 flex Ankle 4+/5 DF Sensation Assessment Sensation Gross Sensation WNL M6 PT-IP Treatment Start: 06/15/23 11:45 Freq: Status: Active Protocol: Document 06/18/23 10:06 MB (Rec: 06/18/23 10:18 MB [id number]) Physical Therapy Treatment Education Education Provided Precautions,Safety M7 PT-IP Assessment and Plan Start: 06/15/23 11:45 Freq: Status: Active Protocol: Document 06/18/23 10:06 MB (Rec: 06/18/23 10:18 MB [id number]) PT Summary Assessment and Plan Potential Rehabilitation Potential Fair Summary Impairments Pain,ROM,Strength,Balance, Coordination,Sensation,Tone, Cognition,Bed Mobility, Transfers,Gait,Activity Tolerance Progress Towards Goals Slow Progress due to Activity Tolerance,Slow Progress - Other Assessment Summary Upon arriving to room, nsg reports that pt may now plan to go home and not to SNF and she has 3 steps to enter home. After doing well with gait, attempted stair training and pt requires min A for ascend and then has left leg buckle with descending. Recommend SNF at d/c. Goals Bed Mobility Goal Independent Transfer Goal Independent,Front Wheeled Walker Gait Goal Independent,Front Wheel Walker Gait Distance 150 Other Goals - up/down 2 steps using hand rail with SBA Days to Meet Goals 10 Frequency of Treatment Frequency Of Treatment Once a Day Treatment Plan Physical Therapy Treatment Plan Bed Mobility Training,Transfer Training,Gait Training, Therapeutic Exercise,Balance Retraining,Discharge Planning, Hot or Cold Pack Recommendations To Nursing Amount of Assist Needed 1 Person Assist Discharge Recommendations PT Discharge Recommendations SNF Rehab Transportation Needs at Discharge Wheelchair/Cabulance
--- NOTE | 2023-06-18 11:09 | CM.DANOTE ---
Initial DCP Assessment Note Reviewed EMR and team rounds. Met w/pt at bedside to introduce self and role, pt was found to be upright in her recliner eating her breakfast, alert/oriented, and able to discuss needs and preferences for eventual d/c. SNF rehab is being recommended by PT at this time. Spoke with pt's dtr, Licha, to obtain further hx and information about family concerns and the home setting. Payor: Medicare PCP: Dr. Badillo Pt is a 78 year-old F with a hx of bilateral knee replacements, chronic lower extremity edema, and a recent L1-fracture presents to the ED via EMS with complaints of worsening lower extremity weakness and frequent falls-having fell 5x in the last few days. She shares that she fell about a month ago and that's when she fractured her L1 in the sacral area of her back. She also has a L4 compression fracture identified on x-ray done at [facility] on 05/05/23. Pt was also found to have a UTI in the ED, and had been seen about a week ago in urgent care for hematuria. Pt resides in a cabin on her son[place]alt's property with he and his family. He has been her primary cg and support person, however she has several children who have all been willing to assist. Her dtr, Licha, will plan to help with the continued process for obtaining long-term care in either an Assisted Living Facility, or at home with [facility] caregivers. The Medicaid application was faxed on 06/16/23, and today this SOFTWARE CONFIGURATION ENGINEER faxed the [facility] long-term care expedited application. Pt is also interested in having this SOFTWARE CONFIGURATION ENGINEER assist with completing a DPOA for Healthcare, which we will complete prior to her d/c. Per pt's request, this SOFTWARE CONFIGURATION ENGINEER did place a referral to [facility], they are reviewing. DCP will continue to follow and assist with any further evolving needs prior to d/c. Discharge Planning/Care Management CM Discharge Assessment Start: 06/18/23 10:56 Freq: Status: Active Protocol: Document 06/18/23 10:56 DPL (Rec: 06/18/23 11:09 DPL [id number]) Discharge Planning Assessment Assigned Diagnostic Imaging Manager ADALBERTO Coreas Advance Directives? No Advance Directives on File No History Provided By Patient,Family Member,Medical Record Has Patient been admitted in last 30 No days? Prior Living Arrangements House Comment Pt resides in a cabin on her son, Walt's property. Household Members family,none Comment Family live in the main house on the property and are readily available to provide for assistance and care needs. Type of transporation used prior to Relies on Others admit Independent with ADL's Yes: Over the last month it's been modified independent. Is patient alert and oriented? Yes Caregiver for Another No DME Already Rented / Owned Elevated Toilet Seat,FWW / Walker Comment Pt is independent and does need assistive devices at baseline, however has become more dependent on her FWW over the last month. She has had several falls despite the walker, and prior to admit had 5-falls within 2-days due to her legs buckling and giving out on her. Patient/Family Preference Halfway Facility Comment Has support system in the community, resides in a cabin on her son's property, other son lives a block away. Discharge Plan Halfway Facility Transportation Arrangement SNF Referrals Initiated Halfway If patient plan is SNF: Has PASSR been Yes completed? Inpatient Status as of 06/16/23 Medicare Choice List Provided Yes Medicare choice list reviewed on patient electronic tablet with SNF/HH Preference [facility] Has Agency SNF been contacted Yes Whiteboard Updated in Patient Room with Yes name and ext. # of Diagnostic Imaging Manager Review Status In Process Please Provide Date Initial DC 06/18/23 Assessment Was Performed
--- NOTE | 2023-06-18 11:23 | PM.PN.1 ---
Subjective Subjective Interval history: She is doing well. Denies back pain. She does have a lot of proximal leg weakness. Recommended for initial trial of steroids and outpatient therapy, possible SNF. She states she was doing okay with therapy until attempting to go down stairs this morning. Exam Vital Signs (past 8 hours): - 06/18/23 08:00 Temperature 97.0 F L Pulse Rate 70 Respiratory Rate 16 Blood Pressure 153/51 H Pulse Oximetry 98 Oxygen Flow Rate 0 Oxygen Delivery Method CPAP Oxygen Flow Rate 0 Narrative Exam Narrative: No acute distress, fluent speech. Somewhat anxious. Symmetric pupils, EOMI. Neck is supple. Lungs are clear, normal effort. Heart is regular, no murmur. Abdomen is non-distended. Extremities are free of edema. 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 Mother No problems noted. 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 Urinary tract infection with Gpan-senstive E. coli, and negative blood cultures. Present on admission and active. 2. Subacute lumbar 1 compression fracture, present on admission and active. 3. Degenerative lumbar spine changes with evidence of spinal stenosis, present on admission and active 4. Progressive proximal leg weakness bilaterally, present on admission and active. 5. Venous insufficiency, present on admission and active. 6. Remote pulmonary emboli, not present on admission are active. 7. Hypertension, present on admission and stable. 8. Hyperlipidemia, present on admission and stable. Plan: -Now completed 4 days of antibiotics with ceftriaxone during admission. -Continue PT and OT. -continue usual medications. -discussed the case with Dr. Jin of Orthopedics who reviewed her lumbar MRI. He was concerned about superior endplate retropulsion at her L4 compression causing some degree of stenosis at the L3-L4 level. He discuss this with Dr. Vance, spine surgery at [facility] who did review the MRI. Dr. Vance felt that there was no need for urgent surgical intervention and that conservative management would continue to make sense. He recommended outpatient follow-up in the next couple of weeks. Dr. Jin did want to limit the amount of bending, lifting, and twisting. He was somewhat reluctant to continue physical therapy but this really will be required if she is going to improve her level of function with her profound proximal leg weakness. Anticipation is for fdc facility, physical therapy will be advised to avoid bending, lifting or twisting. The patient will also be placed on 20 mg of prednisone for 3 days for anti-inflammatory effect see if this improves her symptoms. She was reluctant to take a higher dose or a longer duration. Her outpatient appointment with Dr. Vance could happen while she is at fdc facility. A referral was placed by Dr. Jin for this appointment. She is full code, confirmed. Her son is proxy decision maker. She is anticipated to require 2 midnights of hospital care. She was admitted to inpatient status. Plan is for discharge to SNF. Quality VTE Deep Vein Thrombosis/Pulmonary Embolism Present on Admission: No
--- NOTE | 2023-06-18 11:57 | OT.IP.TRT ---
Current Diagnoses Pain in right knee (06/16/23) Pain in left knee (06/16/23) Occupational Therapy Treatment Note M2 OT-IP Current Condition Start: 06/17/23 14:29 Freq: Status: Active Protocol: Document 06/17/23 14:30 [facility] (Rec: 06/17/23 15:16 [facility] [id number]) Occupational Therapy Current Condition Current Condition Evaluation Date 06/17/23 Treatment Diagnosis L4 subacute fx, frequent falls Diagnosis Onset Date 06/16/23 Post Operative Precautions Lumbar Precautions Log Roll,No Twisting,Limit Bending,Lifting Restriction of 10 lbs M3 OT- IP Subjective and Pain Start: 06/17/23 14:29 Freq: Status: Active Protocol: Document 06/18/23 12:13 [facility] (Rec: 06/18/23 12:32 [facility] [id number]) OT- Subjective Occupational Therapy Visit Type Type Treatment Note Visit Start Time 10:55 Visit Stop Time 11:57 Total Visit Minutes 62 Occupational Therapy Visit Comments Patient Comments Pt agreed to cognitive assessment and re-look at her BUE for neurological assessment. Patient/Caregiver Goals To go to skilled rehab. OT Pain Assessment Pain When Pain Assessed During Mobility Pain Present Pain Present Pain Reported M5 OT- IP IADL's Start: 06/17/23 14:29 Freq: Status: Active Protocol: Document 06/17/23 14:30 [facility] (Rec: 06/17/23 15:16 [facility] [id number]) OT-Instrumental Activities of Daily Living Deficits IADL Deficits Identified Deficits Home Safety Awareness Awareness of Need for Assistance at Home Good Awareness Medication Management Medication Management Comments Pt was able to do prior. Money Management Money Management Comments Prior pt was able to do it on her own. Meal Preparation Meal Preparation Comments Prior pt was able to do it, but will now need assist. Pierce And Shave Press Operator Pierce And Shave Press Operator Comments Pt will need assist. M6 OT- IP Functional Cognition Start: 06/17/23 14:29 Freq: Status: Active Protocol: Document 06/18/23 12:13 [facility] (Rec: 06/18/23 12:32 [facility] [id number]) Cognitive Factors Limiting Selfcare Function Cognitive Ability Level of Alertness Alert Patient Orientation Name,Age,Birthday,Month,Date, Year,Day of Week,Place, Situation Attention Span Ability Capable of Focused Attention, Capable of Sustained Attention Ability to Follow Commands Able to Follow One Step Commands Memory Description Short Term Impaired Executive Function Ability Unable to Filter Distractions, Unable to Remember Details Cognitive Tests SLUMS Pt scored 21/30 on the SLUMS which implies mild neurocognitive disorder. Pt only able to recall 1/5 objects after time passed, not able to states 4 digit number backwards, and able to answer 2/4 questions right after paragraph read. Pt's thinking may still be affected by her UTI. Cognitive Comments Cognitive Assessment Comments Pt scored 142 seconds on [place] Making Part B which is 30 percentile for her age group and implies decreased visual attention, speed of processing , mental flexibility, executive functioning, and for task switching. Pt is well award that she will not be driving at this time. OT- Vision and Hearing OT- Vision Assessment Visual Acuity Glasses All The Time Visual Attentiveness WFL Occular Pursuits WFL Visual Convergence WFL Visual Bevelry WFL M8 OT- IP Objective Assessments Start: 06/17/23 14:29 Freq: Status: Active Protocol: Document 06/18/23 12:13 [facility] (Rec: 06/18/23 12:32 [facility] [id number]) OT- Coordination Assessment Upper Extremity Finger to Nose Test Within Functional Limits Finger Tapping Test Left UE Impaired Comments Coordination Comments LUE slightly decreased for speed and accuracy. RUE 22 seconds on 9 Hole Peg which implies 75th percentile andn LUE 26 sec which implies 50th percentile for her age. OT Sensation Assessment Comments Summary Comments Left hand decreased for proprioception and kinesthesia . M9 OT- IP Assessment and Plan Start: 06/17/23 14:29 Freq: Status: Active Protocol: Document 06/18/23 12:13 [facility] (Rec: 06/18/23 12:32 [facility] [id number]) OT Summary Assessment and Plan Potential Rehabilitation Potential Good Analytic Complexity at Evaluation Moderate Summary OT Impairments Pain,Strength,Balance, Functional Mobility,Grooming, Dressing,Toileting,Bathing, Toilet Transfers,Shower Transfers,Activity Tolerance Progress Towards Goals Progressing Toward Goals,Slow Progress due to Medical Issues Assessment Summary Pt thinking somewhat better today but still needing increased time to process directions. Pt looking to go to skilled rehab when medically stable. Goals Self-Feeding Goal Independent Grooming Goal Independent Dressing Goal Independent Toileting Goal Independent Bathing Goal Independent Toilet Transfer Goal Independent Shower Transfer Goal Independent Days to Meet Goals 24 Frequency of Treatment Frequency Of Treatment Once a Day Treatment Plan OT Treatment Plan ADL Training,Functional Mobility,Patient/Family Education,Discharge Planning Other Treatment Recommendations and Next Shower Treatment Focus Discharge Recommendations OT Discharge Recommendations SNF Rehab Transportation Needs at Discharge Wheelchair/Cabulance
[2023-06-18 16:00] VITALS: BP 121/69; PULSE 69; RESP 16; TEMP 36.6; O2SAT 97
[2023-06-18] MEDS: DOCUSATE 100 MG CAPSULE PO (21:03)
[2023-06-18 21:05] VITALS: BP 146/73; PULSE 78; RESP 16; TEMP 36.4; O2SAT 97
[2023-06-19 05:29] VITALS: BP 146/80; PULSE 89; RESP 16; TEMP 36.2; O2SAT 96
[2023-06-19] MEDS: DOCUSATE 100 MG CAPSULE PO (09:14)
[2023-06-19] MEDS: predniSONE 20 MG TABLET PO (09:14)
[2023-06-19] MEDS: polyethylene glycoL 3350 17 GM POWD.PACK PO (09:14)
[2023-06-19] MEDS: ENOXAPARIN 40 MG/0.4 ML SYRINGE SUBCUT (09:14)
--- NOTE | 2023-06-19 09:14 | PT-IP ANOTE ---
Attempted to treat patient, patient requested using restroom with nursing prior to working with PT. Due to time constraints of covering out-patient PT, therapist waited as long as possible, but was not able to get to patient at this time.
[2023-06-19 11:44] VITALS: BP 157/81; PULSE 93; RESP 19; TEMP 36.8; O2SAT 96
--- NOTE | 2023-06-19 13:06 | PM.DS.1 ---
History of Present Illness History of Present Illness Date Patient Seen: 06/19/23 Time Patient Seen: 10:50 Chief complaint: Spinal fx 1mo ago Narrative: Per admitting provider, The patient presents with multiple falls. She describes a history of bilateral knee replacements over the last several years. The patient had after this attained a nice level of function was able to ambulate relatively briskly and had no real issues. In April, she had a fall and sustained a compression fracture of L1. She was seen by Orthopedics and conservative management was recommended. The patient has had some improvement of pain since then but describes progressive weakness of her legs, essentially at the upper thighs. She has had a sequence of progressive falls, 5 in all. The last fall preceded her visit to the emergency department. She was found to have evidence of a urinary tract infection in the ER did recount a urgent care visit about a week prior for hematuria. She denies fevers, or chills. She lives independently in a cottage on family property. She denies any specific injury with her recent falls but notes that she is having great difficulty getting into a standing position from lying. She is quite fearful that she will injure herself from ongoing falls. She is hopeful that the urinary tract infection may relate to her increased weakness and that its treatment may improve her symptoms. She denies bowel or bladder difficulties. She also notes she is been on tramadol, and thought that this was causing some mental confusion and start a taper this from 1 tablet HS to 1/2 tablet HS. She denies history of bowel or bladder dysfunction but has been somewhat constipated from the tramadol having about 1 bowel movement every 7 days. She denies any current hematuria, chest pain, cough or shortness of breath. No leg swelling. No leg pain. No radicular symptoms. Discharge Providers Provider Date of admission: 06/16/23 11:50 Discharge Date: 06/19/23 Primary care physician: Kasia Dao PA-C Consults: 06/15/23 10:57 Consult to Physical Therapy Evaluate & Treat Comment: compression fracture, leg weakness and falling Physician Instructions: Evaluate and Treat 06/15/23 11:24 Consult to BIOLOGY INSTRUCTOR - Barrel Drum Cutter Stat Comment: palcement 06/16/23 14:35 Consult to Physical Therapy Evaluate & Treat Comment: proximal leg weakness Physician Instructions: Evaluate and Treat 06/17/23 10:25 Consult to Occupational Therapy Evaluate & Treat Comment: Physician Instructions: Evaluate and treat Discharge provider: Sherif Olson DO Summary Hospital Course Discharge Diagnosis: 1. Urinary tract infection with aviles-senstive E. coli, and negative blood cultures. Present on admission and active. 2. Subacute lumbar 1 compression fracture, present on admission and active. 3. Degenerative lumbar spine changes with evidence of spinal stenosis, present on admission and active 4. Progressive proximal leg weakness bilaterally, present on admission and active. 5. Venous insufficiency, present on admission and active. 6. Remote pulmonary emboli, not present on admission are active. 7. Hypertension, present on admission and stable. 8. Hyperlipidemia, present on admission and stable. Hospital Course: This is a 78 year old female admitted with progressive weakness. On admission urinalysis was positive for an infection. She was given 4 days of ceftriaxone in the hospital which should be sufficient for completion of therapy as cultures grew aviles sensitive E. coli. She was seen and evaluated with therapies, and recommended for SNF. She had notable proximal muscle weakness, and MRI was performed which causing moderate - severe stenosis at L3-4 level. Her outpatient orthopedic provider was notified, discussed with spinal surgeon and placed referral for outpatient follow up in the next couple of weeks (Dr. Stratton). Dr. Vance felt that there was no need for urgent surgical intervention and that conservative management would continue to make sense. He recommended outpatient follow-up in the next couple of weeks. Dr. Jin did want to limit the amount of bending, lifting, and twisting. He was somewhat reluctant to continue physical therapy but this really will be required if she is going to improve her level of function with her profound proximal leg weakness. She was given a short course of prednisone 20 mg to see if any improvement, and has one more dose after discharge to complete. Based on her weakness, she was transferred to SNF for ongoing therapies and conservative management based on orthopedic provider's recommendations. Time Spent with Patient Time spent: Greater than 30 minutes Exam Vital Signs (past 8 hours): - 06/19/23 05:29 06/19/23 11:44 Temperature 97.1 F L 98.2 F Pulse Rate 89 93 H Respiratory Rate 16 19 Blood Pressure 146/80 H 157/81 H Pulse Oximetry 96 96 Oxygen Flow Rate 0 0 Oxygen Delivery Method CPAP Oxygen Flow Rate 0 Narrative Exam Narrative: No acute distress, fluent speech. Somewhat anxious. Symmetric pupils, EOMI. Neck is supple. Lungs are clear, normal effort. Heart is regular, no murmur. Abdomen is non-distended. Extremities are free of edema. 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 Mother No problems noted. 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 Also noted to have superior endplate retropulsion at her L4 causing some degree of stenosis at the L3-L4 level. Patient's orthopedist did want to limit the amount of bending, lifting, and twisting. He was somewhat reluctant to continue physical therapy but this really will be required if she is going to improve her level of function with her proximal leg weakness. Physical therapy is advised to avoid bending, lifting or twisting. The patient was also placed on 20 mg of prednisone for 3 days for anti-inflammatory effect see if this improves her symptoms, she has 1 day remaining. She was reluctant to take a higher dose or a longer duration. Her outpatient appointment with Dr. Vance could happen while she is at [facility]. A referral was placed by Dr. Jin for this appointment. Discharge orders & Medications Prescriptions: New acetaminophen 325 mg Tablet 650 mg PO Q6H PRN (Reason: Fever/Mild Pain (1-3)) Qty: 30 0RF polyethylene glycol 3350 17 gram Powder In Packet 17 gm PO DAILY Qty: 30 0RF prednisone 20 mg Tablet 20 mg PO DAILY Qty: 1 0RF docusate sodium 100 mg Capsule 100 mg PO BID Qty: 14 0RF ibuprofen 400 mg tablet 400 mg PO Q8H PRN (Reason: fever or pain) Qty: 60 0RF Continued vitamin B complex Capsule 1 cap PO DAILY cholecalciferol (vitamin D3) [Vitamin D3] 25 mcg (1,000 unit) Capsule 25 mcg PO DAILY zinc 50 mg tablet 50 mg PO DAILY ascorbic acid (vitamin C) 500 mg tablet 500 mg PO DAILY magnesium 250 mg tablet 250 mg PO DAILY Follow up/Referrals: Kasia Dao PAChrisC [Primary Care Provider] - Jc Stratton MD [Physician] - 2 Weeks Discharge Health Status Multidrug resistant organism: No MDRO Precautions: [place] Diet/Activity/Treatments Diet: Diet as Tolerated and Regular Liquid consistency: Normal/Thin Food texture: Regular Activity: See above Special Rehabilitation Services Reason for rehabilitation: Recovery r/t decondition Rehab type: Physical therapy and Occupational therapy Visit Report/Discharge Packet Stand Alone Forms: Patient Portal/API Discharge Data Primary Care Provider: Kasia Dao Quality VTE Deep Vein Thrombosis/Pulmonary Embolism Present on Admission: No
--- NOTE | 2023-06-19 15:16 | PC.NURSE ---
Addendum entered by Roselia Torres R.N. 06/19/23 15:19: [facility] Note: Patient is A&OX4, VSS, afebrile. Patient is cleared for discharge this afternoon to [facility]. Facility designee arrived to transport patient this afternoon via w/ch. She verbalizes agreement and understanding of discharge plan, medications, and activity. She is transported to vehicle with transporter at 1430 this afternoon with discharge packet and all of her belongings.
== END 2023-06-19 14:35 | DRG 690 ==
LOC: ED 06-16 10:21 → AC 06-16 13:19
PROVIDERS: Emergency Medicine; Admitting Provider Hospitalist; Emergency Provider Emergency Medicine; Family Provider Internal Medicine; PCP Student in an Organized Health Care Education/Training Program; Visit Provider Hospitalist
DX: N39.0 Urinary tract infection, site not specified (principal); S32.010A Wedge compression fracture of first lumbar vertebra, initial encounter for closed fracture; M48.061 Spinal stenosis, lumbar region without neurogenic claudication; I10 Essential (primary) hypertension; E78.5 Hyperlipidemia, unspecified; I87.2 Venous insufficiency (chronic) (peripheral); B96.20 Unspecified Escherichia coli [E. coli] as the cause of diseases classified elsewhere; G47.33 Obstructive sleep apnea (adult) (pediatric); W19.XXXA Unspecified fall, initial encounter; Z86.711 Personal history of pulmonary embolism
CPT/HCPCS: 36415; 72158; 73562; 74022; 80048; 80053; 81003; 81015; 83690; 85025; 85610; 87077; 87086; 87186; 93005; 96365; 96366; 96372; 97116; 97129; 97162; 97166; 97530; 97535; 99284; J0696; J1650

== ENCOUNTER 2024-01-20 11:15 | Outpatient (RCR) | payer MEDICARE, OTHER, MEDICAID, SELFPAY ==
[2023-06-16 11:59] VITALS: BMI 33.6
--- NOTE | 2023-09-22 16:00 | PT.OPPOC ---
Physical, Occupational & Speech Therapy At [facility] Current Diagnoses Spinal stenosis, lumbar region with neurogenic claudication (09/22/23) Other specified disorders of bone density and structure, unspecified site (09/22/23) Wedge compression fracture of fourth lumbar vertebra, initial encounter for closed fracture (09/22/23) Visit Care Team Role Provider Type Kasia Dao PA-C Primary Care Provider Physician Evaluator Transfer Students Specialty: Medical Address: [place], [place], [facility] Email: [email or web address] Sriram Badillo MD Family Provider Physician Specialty: Internal Medicine Address: [address] [place] [address], [facility] Email: [email or web address] Ochoa Jin MD Attending Provider Physician Referring Provider Specialty: Orthopedics Orthopedic Surgery Address: [address] [place] [address], [id number] Email: [email or web address] Plan Of Care PT-OP-T Assessment and Plan Start: 09/21/23 16:22 Freq: Status: Active Protocol: Document 09/22/23 10:33 SAK (Rec: 09/22/23 10:36 SAK [id number]) Physical Therapy Assessment Goals Four Impairment gait dysfunction Impairment requires the use of a straight cane or walker for safe mobility Group Home Goal (LTG) Patient will be able to safely ambulate without an assistive device on level surfaces and with straight cane with outdoor, uneven ground and be able to ascend and descend stairs with step-over step pattern LTG Duration 12/22/23 Three Impairment weakness Impairment LE weakness including lack of full right knee extension Short Term Goal (STG) Review current HEP and progress as appropriate for LE strengthening, especially focused on terminal knee extension righ STG Duration 11/07/23 Group Home Goal (LTG) Patient to be independent and compliant with HEP and demonstrate 5/5 prabha LE strength to facilitate return to prior level of activity and safety with mobility LTG Duration 12/22/23 Two Impairment Activities in confidence balance scale Impairment 46 indicating low confidence in mobility Short Term Goal (STG) Improve ABC score to at least 60% STG Duration 11/07/23 Group Home Goal (LTG) Improve ABC score to at least 75% as measure of improved confidence in mobility in her home and the community LTG Duration 12/22/23 One Impairment Belcher Balance score Impairment 37/52 indicating moderate fall risk Short Term Goal (STG) Improve Belcher balance score to at least 44/52 STG Duration 11/07/23 Group Home Goal (LTG) Improve Belcher balance score to at least 50/52 to reduce fall risk to low to allow patient to return to prior level of function safely LTG Duration 12/22/23 Assessment Summary Assessment Patient presents to PT with function-limiting low back pain s/p L1 compression fracture April 2023 s/p fall, with patient reporting multiple falls since that time . REcovery included inpatient rehab and home health, and patient is now ready for outpatient therapy. Patient reports high fear of falling but is also highly motivated to improve her balance and strength with PT and return to her prior level of function. POC was discussed and patient is in agreement. Physical Therapy Plan Frequency and Duration Frequency of Treatment 2x/Week Duration of treatment (weeks) 12 Plan of Care Start Date 09/22/23 Plan of Care End Date 12/22/23 Therapeutic Interventions Therapeutic Interventions Balance Training,Gait Training ,Home Exercise Program,Manual Therapy,Patient/Caregiver Education,Self-Care/Home Management,Soft Tissue Mobilization,Taping, Therapeutic Activities, Therapeutic Exercises Modalities Cold Pack/Ice Massage,Electric Stimulation,Hot Packs, Ultrasound Next Visit Focus/Plan Next Note Type Treatment Note Next Visit Plan REview HEP, gentle progression as tolerated. Modalities and manual therapy PRN Plan of Care Dates Plan of Care Start Date 09/22/23 Plan of Care End Date 12/22/23 Electronically Signed by: Nissa Sanchez PT 09/23/23 [id number] If you are in agreement with this Plan of Care, please return a signed and dated copy. I have reviewed this Plan of Care and certify that the skilled therapy services above are required to meet the patient?s needs. Physician Signature Date Printed Name and Credentials Clinical Instructor Signature Printed Name and Credentials
--- NOTE | 2023-09-22 16:00 | PT.OIE ---
Current Diagnoses Spinal stenosis, lumbar region with neurogenic claudication (09/22/23) Other specified disorders of bone density and structure, unspecified site (09/22/23) Wedge compression fracture of fourth lumbar vertebra, initial encounter for closed fracture (09/22/23) Past Medical History (Last Reviewed 06/14/23 @ 23:43 by Opal Coulter MD) 1+ pitting edema Arthritis Bilateral knee pain 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) Essential hypertension Excessive daytime sleepiness (~2008) Generalized osteoarthritis GERD without esophagitis History of falling Intentional weight loss 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 Mixed hyperlipidemia Morbid obesity with BMI of 40.0-44.9, adult Nocturnal hypoxemia Obstructive sleep apnea of adult (~2008) Other pulmonary embolism with acute cor pulmonale Primary osteoarthritis of left knee Pulmonary emboli (~2007) Seasonal allergies Stasis dermatitis Venous insufficiency Past Surgical History (Last Reviewed 06/14/23 @ 23:43 by Opal Coulter MD) H/O bilateral cataract extraction History of arthroplasty of left knee (07/24/20) History of cholecystectomy History of salpingo-oophorectomy Visit Care Team Role Provider Type Kasia Dao PA-C Primary Care Provider Physician Director Of Perioperative Services Specialty: Medical Address: [place], [place], [facility] Email: [email or web address] Sriram Badillo MD Family Provider Physician Specialty: Internal Medicine Address: [address] [place] [address], [address] Email: [email or web address] [email or web address] Jin MD Attending Provider Physician Referring Provider Specialty: Orthopedics Orthopedic Surgery Address: [address] [place] [address], [address] Email: [email or web address] Physical Therapy Initial Evaluation PT-OP-A Visit Information Start: 09/21/23 16:22 Freq: Status: Active Protocol: Document 09/22/23 10:33 SAK (Rec: 09/22/23 10:36 SAK [id number]) Out-Patient Physical Therapy Visit Information Visit Information Visit Type Initial Evaluation Visit Start Time 13:45 Visit Stop Time 14:31 Visit Number 1 PT-OP-B Current Condition Start: 09/21/23 16:22 Freq: Status: Active Protocol: Document 09/22/23 10:33 [facility] (Rec: 09/22/23 10:36 [facility] [id number]) Current Condition History of Current Condition Onset Date 04/20/24 Current Complaints weakness, back pain History of Current Condition compression fracture L1 when fell backward onto gravel going up stairs. Couldn't get up by herself. Son assisted her up and to her house. She just thought she bruised her back, couldn't get into see her primary physician. Went to walk in clinic. Diagnosed with L1 compression fracture. Referred to see Dr. Fair; had second x-ray at [facility]. Told to go home and take it easy and come back in 6 weeks. Fell again going into bank, couldn't feel right knee. Then stayed at home per doctor's recommendation and layed around, using a walker. Then went to [facility] due to hematuria, diagnosed with hemmorrhoid. Fell again stepping into shower wearing socks, then started taking sponge baths. Then didn't trust herself to do anything, fell again not being able to feel her knees and just dropped. Finally diagnosed with UTI, in hospital x 4 days . Feels she has lost a lot of strength. Practicing steps at hospital, fell as she started to descend due to losing balance. Then transferred to care facility in wheelchair or bed most of the time except with PT, states got weaker. Fell at care center as well due to unlocked chair. Had Home Health PT At this time back pain minimal, c/o weakness and fear of falling. Has been doing Home Health, now discharged. C/o weakness right greater than left. 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 PT-OP-C Subjective Start: 09/21/23 16:22 Freq: Status: Active Protocol: Document 09/22/23 10:33 BASILIO (Rec: 09/22/23 12:32 [facility] [id number]) Patient Questionnaires Oswestry Low Back Index Oswestry Score 54 OP-PT Pain Assessment Pain Assessment Grid Paper Pain Assessment Grid Completed Yes Location lumbar spine Intensity 7 PT-OP-D Balance Start: 09/21/23 16:22 Freq: Status: Active Protocol: Document 09/22/23 10:33 BASILIO (Rec: 09/22/23 12:32 SAK [id number]) OP-PT Balance Assessment Sitting Balance Static Sitting Balance Ability Normal Dynamic Sitting Balance Ability Normal Balance Tests Belcher Balance Test Belcher Balance Test Score 38 Belcher Balance Assessment Evaluation Sitting to Standing Ability Independent w/out Hands Unsupported Stance Safely- 2 minutes Sitting Unsupported, Feet on Floor Safely- 2 minutes Standing to Sitting Ability Assist, Control w/Hands Transfer Ability Safely, Hand Use Unsupported Stance- Eyes Closed Supervision, 10 seconds Unsupported Stance- Eyes Open Supervision to maintain Reaching Forward Standing Safely, 5 inches Pick- Up Object From Floor Supervision Look Behind Shoulder - Standing Shifts Weight Well Turning 360 Degrees Supervision/Verbal Cues Unsupported Stance, Alternating Feet on 4 Steps w/Supervision Stair Unsupported Tandem Stance Balance Lost- Step/Stand Unilateral Leg Stance Unable,assist to not fall Total Score Belcher Total Score (out of 56 points) 37 Tinetti Balance Assessment Sitting Balance Sitting Balance Steady, safe Scoring and Interpretation Tinetti Composite Score (points) 1 Squires Fall Scale Copyright Permission PT-OP-E Functional Tests Start: 09/21/23 16:22 Freq: Status: Active Protocol: Document 09/22/23 10:33 BASILIO (Rec: 09/22/23 12:32 [facility] [id number]) Functional Tests 2 Minute Walk Test Distance 75 Five Times Sit to Stand Test Score 21 Comments UE use PT-OP-F Manual Assessment Start: 09/21/23 16:22 Freq: Status: Active Protocol: Document 09/22/23 10:33 BASILIO (Rec: 09/22/23 12:32 [facility] [id number]) Manual Assessments Soft Tissue Assessment Soft Tissue Mobility Assessment TTP lumbar spine with inc soft tissue tightness PT-OP-G Mobility & Gait Start: 09/21/23 16:22 Freq: Status: Active Protocol: Document 09/22/23 10:33 BASILIO (Rec: 09/22/23 12:32 [facility] [id number]) OP Gait Assessment Gait Gait Assistance Required: Independent Assistive Devices Assistive Device Straight Cane,4 Wheeled Walker Gait Deviations General Gait Pattern Decreased Stride Length, Decreased Feet Clearance Factors Limiting Gait Function Factors Limiting Gait Function Decreased Activity Tolerance, Decreased Strength Stair Climbing Evaluation Evaluation Level of Assist On Stairs Standby Assistance Devices Stair Climbing Assistive Devices Straight Cane,Left Railing Technique/Endurance Stair Climbing Direction Ascend and Descend Stair Climbing Technique Step to Step PT-OP-J Posture/Palpation/Skin Start: 09/21/23 16:22 Freq: Status: Active Protocol: Document 09/22/23 10:33 [facility] (Rec: 09/22/23 12:32 [facility] [id number]) Posture Evaluation Position Standing Evaluation View Lateral Head/C-Spine Posture Forward Head T-Spine Posture Increased Kyphosis L-Spine Posture Flattened PT-OP-K Range of Motion Start: 09/21/23 16:22 Freq: Status: Active Protocol: Document 09/22/23 10:33 [facility] (Rec: 09/22/23 12:32 [facility] [id number]) Lumbar Spine Range of Motion Lumbar Spine Active Flexion 20 Hip Goniometric Range of Motion Hip prabha Hip ROM WFL No Knee Goniometric Range of Motion Knee prabha Knee ROM WFL Yes Comments except lacking terminal extension right knee -8 Knee ROM Limitations Knee ROM Limitations Muscle Weakness Ankle and Foot Goniometric Range of Motion Ankle and Foot prabha Ankle/Foot ROM WFL Yes PT-OP-M Strength Start: 09/21/23 16:22 Freq: Status: Active Protocol: Document 09/22/23 10:33 [facility] (Rec: 09/22/23 12:32 [facility] [id number]) Trunk Strength Trunk Manual Muscle Testing Flexion 3+ Fair+ Extension 3+ Fair+ Hip Strength Hip Manual Muscle Testing prabha Flexion (L2) 3+ Fair+ Extension (S1) 3- Fair- Abduction 3+ Fair+ Knee Strength Knee Manual Muscle Testing Right Flexion (S2) 4 Good Extension (L3) 3- Fair- Left Flexion (S2) 4+ Good+ Extension (L3) 4+ Good+ Ankle/Foot Strength Ankle and Foot Manual Muscle Testing Right Dorsiflexion (L4) 4 Good Plantarflexion (S1) 4 Good Left Dorsiflexion (L4) 5 Normal Plantarflexion (S1) 5 Normal PT-OP-Q Treatments Start: 09/21/23 16:22 Freq: Status: Active Protocol: Document 09/22/23 10:33 SAK (Rec: 09/22/23 12:32 [facility] [id number]) Self-Care/Home Management Treatment Education Patient Education Fall Risk,Home Exercise Program,Pain Management, Posture Other Education Patient to bring HEP from home health. PT-OP-R Modalities Start: 09/21/23 16:22 Freq: Status: Active Protocol: Document 09/22/23 10:33 SAK (Rec: 09/22/23 12:32 SAK [id number]) Hot Pack/Cold Pack Treatment Cold Pack Location lumbar spine Patient Position Sitting PT-OP-T Assessment and Plan Start: 09/21/23 16:22 Freq: Status: Active Protocol: Document 09/22/23 10:33 SAK (Rec: 09/22/23 10:36 [facility] [id number]) Physical Therapy Assessment Goals Four Impairment gait dysfunction Impairment requires the use of a straight cane or walker for safe mobility Senior Care Goal (LTG) Patient will be able to safely ambulate without an assistive device on level surfaces and with straight cane with outdoor, uneven ground and be able to ascend and descend stairs with step-over step pattern LTG Duration 12/22/23 Three Impairment weakness Impairment LE weakness including lack of full right knee extension Short Term Goal (STG) Review current HEP and progress as appropriate for LE strengthening, especially focused on terminal knee extension righ STG Duration 11/07/23 Senior Care Goal (LTG) Patient to be independent and compliant with HEP and demonstrate 5/5 prabha LE strength to facilitate return to prior level of activity and safety with mobility LTG Duration 12/22/23 Two Impairment Activities in confidence balance scale Impairment 46 indicating low confidence in mobility Short Term Goal (STG) Improve ABC score to at least 60% STG Duration 11/07/23 Senior Care Goal (LTG) Improve ABC score to at least 75% as measure of improved confidence in mobility in her home and the community LTG Duration 12/22/23 One Impairment Belcher Balance score Impairment 37/52 indicating moderate fall risk Short Term Goal (STG) Improve Belcher balance score to at least 44/52 STG Duration 11/07/23 Senior Care Goal (LTG) Improve Belcher balance score to at least 50/52 to reduce fall risk to low to allow patient to return to prior level of function safely LTG Duration 12/22/23 Assessment Summary Assessment Patient presents to PT with function-limiting low back pain s/p L1 compression fracture April 2023 s/p fall, with patient reporting multiple falls since that time . REcovery included inpatient rehab and home health, and patient is now ready for outpatient therapy. Patient reports high fear of falling but is also highly motivated to improve her balance and strength with PT and return to her prior level of function. POC was discussed and patient is in agreement. Physical Therapy Plan Frequency and Duration Frequency of Treatment 2x/Week Duration of treatment (weeks) 12 Plan of Care Start Date 09/22/23 Plan of Care End Date 12/22/23 Therapeutic Interventions Therapeutic Interventions Balance Training,Gait Training ,Home Exercise Program,Manual Therapy,Patient/Caregiver Education,Self-Care/Home Management,Soft Tissue Mobilization,Taping, Therapeutic Activities, Therapeutic Exercises Modalities Cold Pack/Ice Massage,Electric Stimulation,Hot Packs, Ultrasound Next Visit Focus/Plan Next Note Type Treatment Note Next Visit Plan REview HEP, gentle progression as tolerated. Modalities and manual therapy PRN
--- NOTE | 2023-09-24 16:19 | PT.OTN ---
Current Diagnoses Spinal stenosis, lumbar region with neurogenic claudication (09/24/23) Other specified disorders of bone density and structure, unspecified site (09/24/23) Wedge compression fracture of fourth lumbar vertebra, initial encounter for closed fracture (09/24/23) Physical Therapy Treatment Note PT-OP-A Visit Information Start: 09/21/23 16:22 Freq: Status: Active Protocol: Document 09/24/23 15:21 SAK (Rec: 09/24/23 16:19 SAK [id number]) Out-Patient Physical Therapy Visit Information Visit Information Visit Type Treatment Note Visit Start Time 15:20 Visit Stop Time 16:00 Visit Number 2 Evaluation Information Evaluation Date 09/22/23 PT-OP-B Current Condition Start: 09/21/23 16:22 Freq: Status: Active Protocol: Document 09/24/23 15:21 SAK (Rec: 09/24/23 16:19 [facility] [id number]) Current Condition History of Current Condition Onset Date 04/20/24 Current Complaints weakness, back pain History of Current Condition compression fracture L1 when fell backward onto gravel going up stairs. Couldn't get up by herself. Son assisted her up and to her house. She just thought she bruised her back, couldn't get into see her primary physician. Went to walk in clinic. Diagnosed with L1 compression fracture. Referred to see Dr. Fair; had second x-ray at [facility]. Told to go home and take it easy and come back in 6 weeks. Fell again going into bank, couldn't feel right knee. Then stayed at home per doctor's recommendation and layed around, using a walker. Then went to [facility] due to hematuria, diagnosed with hemmorrhoid. Fell again stepping into shower wearing socks, then started taking sponge baths. Then didn't trust herself to do anything, fell again not being able to feel her knees and just dropped. Finally diagnosed with UTI, in hospital x 4 days . Feels she has lost a lot of strength. Practicing steps at hospital, fell as she started to descend due to losing balance. Then transferred to care facility in wheelchair or bed most of the time except with PT, states got weaker. Fell at care center as well due to unlocked chair. Had Home Health PT At this time back pain minimal, c/o weakness and fear of falling. Has been doing Home Health, now discharged. C/o weakness right greater than left. Prior Treatments and Tests x-ray: L1 compression fracture MRI: L3-L4: The disc height and disk signal are relatively well-preserved. Mild to moderate disc bulge is seen, with a central disc protrusion. At least moderate facet hypertrophy is seen. Associated hypertrophy of the ligamentum flavum can be seen. Fluid is seen within the facet joints themselves. There is moderate to severe bilateral neural foraminal narrowing seen, with an associated a degree of compression seen upon the exiting nerve roots. At least moderate central canal narrowing is seen. L4-L5: The disc height and disk signal are relatively well-preserved. Mild generalized disc bulge is seen. Moderate facet joint hypertrophy is seen. There is mild-to- moderate right-sided and no left-sided neural foraminal narrowing. No central canal narrowing is seen. L5-S1: At least moderate loss of disc height is seen. Mild to moderate disc bulge is seen, which is eccentric to the left. Mild to moderate facet hypertrophy is seen. No significant neural foraminal or central canal narrowing can be seen. 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 PT-OP-C Subjective Start: 09/21/23 16:22 Freq: Status: Active Protocol: Document 09/24/23 15:21 [facility] (Rec: 09/24/23 16:19 [facility] [id number]) OP-PT Subjective Patient Comments Patient Comments Reports she was a little scared to come to PT today due to rain, requests PT walk her back to car after PT session. PT-OP-D Balance Start: 09/21/23 16:22 Freq: Status: Active Protocol: Document 09/22/23 10:33 [facility] (Rec: 09/22/23 12:32 [facility] [id number]) OP-PT Balance Assessment Sitting Balance Static Sitting Balance Ability Normal Dynamic Sitting Balance Ability Normal Balance Tests Belcher Balance Test Belcher Balance Test Score 38 Belcher Balance Assessment Evaluation Sitting to Standing Ability Independent w/out Hands Unsupported Stance Safely- 2 minutes Sitting Unsupported, Feet on Floor Safely- 2 minutes Standing to Sitting Ability Assist, Control w/Hands Transfer Ability Safely, Hand Use Unsupported Stance- Eyes Closed Supervision, 10 seconds Unsupported Stance- Eyes Open Supervision to maintain Reaching Forward Standing Safely, 5 inches Pick- Up Object From Floor Supervision Look Behind Shoulder - Standing Shifts Weight Well Turning 360 Degrees Supervision/Verbal Cues Unsupported Stance, Alternating Feet on 4 Steps w/Supervision Stair Unsupported Tandem Stance Balance Lost- Step/Stand Unilateral Leg Stance Unable,assist to not fall Total Score Belcher Total Score (out of 56 points) 37 Tinetti Balance Assessment Sitting Balance Sitting Balance Steady, safe Scoring and Interpretation Tinetti Composite Score (points) 1 Squires Fall Scale Copyright Permission PT-OP-E Functional Tests Start: 09/21/23 16:22 Freq: Status: Active Protocol: Document 09/22/23 10:33 [facility]AK (Rec: 09/22/23 12:32 [facility] [id number]) Functional Tests 2 Minute Walk Test Distance 75 Five Times Sit to Stand Test Score 21 Comments UE use PT-OP-F Manual Assessment Start: 09/21/23 16:22 Freq: Status: Active Protocol: Document 09/22/23 10:33 [facility]AK (Rec: 09/22/23 12:32 [facility] [id number]) Manual Assessments Soft Tissue Assessment Soft Tissue Mobility Assessment TTP lumbar spine with inc soft tissue tightness PT-OP-G Mobility & Gait Start: 09/21/23 16:22 Freq: Status: Active Protocol: Document 09/22/23 10:33 [facility]AK (Rec: 09/22/23 12:32 [facility] [id number]) OP Gait Assessment Gait Gait Assistance Required: Independent Assistive Devices Assistive Device Straight Cane,4 Wheeled Walker Gait Deviations General Gait Pattern Decreased Stride Length, Decreased Feet Clearance Factors Limiting Gait Function Factors Limiting Gait Function Decreased Activity Tolerance, Decreased Strength Stair Climbing Evaluation Evaluation Level of Assist On Stairs Standby Assistance Devices Stair Climbing Assistive Devices Straight Cane,Left Railing Technique/Endurance Stair Climbing Direction Ascend and Descend Stair Climbing Technique Step to Step PT-OP-J Posture/Palpation/Skin Start: 09/21/23 16:22 Freq: Status: Active Protocol: Document 09/22/23 10:33 SAK (Rec: 09/22/23 12:32 [facility] [id number]) Posture Evaluation Position Standing Evaluation View Lateral Head/C-Spine Posture Forward Head T-Spine Posture Increased Kyphosis L-Spine Posture Flattened PT-OP-K Range of Motion Start: 09/21/23 16:22 Freq: Status: Active Protocol: Document 09/22/23 10:33 [facility] (Rec: 09/22/23 12:32 [facility] [id number]) Lumbar Spine Range of Motion Lumbar Spine Active Flexion 20 Hip Goniometric Range of Motion Hip prabha Hip ROM WFL No Knee Goniometric Range of Motion Knee prabha Knee ROM WFL Yes Comments except lacking terminal extension right knee -8 Knee ROM Limitations Knee ROM Limitations Muscle Weakness Ankle and Foot Goniometric Range of Motion Ankle and Foot prabha Ankle/Foot ROM WFL Yes PT-OP-M Strength Start: 09/21/23 16:22 Freq: Status: Active Protocol: Document 09/22/23 10:33 [facility] (Rec: 09/22/23 12:32 [facility] [id number]) Trunk Strength Trunk Manual Muscle Testing Flexion 3+ Fair+ Extension 3+ Fair+ Hip Strength Hip Manual Muscle Testing prabha Flexion (L2) 3+ Fair+ Extension (S1) 3- Fair- Abduction 3+ Fair+ Knee Strength Knee Manual Muscle Testing Right Flexion (S2) 4 Good Extension (L3) 3- Fair- Left Flexion (S2) 4+ Good+ Extension (L3) 4+ Good+ Ankle/Foot Strength Ankle and Foot Manual Muscle Testing Right Dorsiflexion (L4) 4 Good Plantarflexion (S1) 4 Good Left Dorsiflexion (L4) 5 Normal Plantarflexion (S1) 5 Normal PT-OP-Q Treatments Start: 09/21/23 16:22 Freq: Status: Active Protocol: Document 09/24/23 15:21 [facility] (Rec: 09/24/23 16:19 [facility] [id number]) Cardio Equipment Recumbent Stepper (Sci-Fit) Duration (Minutes) 5 Resistance 1 Seat Position 11 Gym Equipment Shuttle Recovery Unilateral Squats Details prabha Shuttle Recovery Platform Stable Reps/Time 2x10 Bilateral Squats Resistance 62 Shuttle Recovery Platform Stable Reps/Time 2x100 #, 1x125# Gait Training Gait Activity level Device Used SPC left UE Level of Assistance CGA Surface firm carpet, tile, pavement Distance/Duration total 200' Treatment Focus safety Neuro Re-Education Treatment Balance Activities foam walk Details next session tandem stand Details next session Dynadisc Details seated bal, lean backs, LAQ, hamstring curls Reps/Duration 6 min Comments cues for min UE use step touch Equipment 4 step Reps/Duration 10x2 tiltboard Details A/P, side to side Reps/Duration 2 min x 2 Comments cues for min UE use foam stand Details EO, EC, head tgurns Equipment black foam Reps/Duration 3 min Comments CGA, cues for min UE use Self-Care/Home Management Treatment Education Patient Education Fall Risk,Home Exercise Program Other Education Discussed current HEP (patient handouts copied and in chart) , nothing added today. PT-OP-R Modalities Start: 09/21/23 16:22 Freq: Status: Active Protocol: Document 09/22/23 10:33 SAK (Rec: 09/22/23 12:32 [facility]AK [id number]) Hot Pack/Cold Pack Treatment Cold Pack Location lumbar spine Patient Position Sitting PT-OP-T Assessment and Plan Start: 09/21/23 16:22 Freq: Status: Active Protocol: Document 09/24/23 15:21 SAK (Rec: 09/24/23 16:19 SAK [id number]) Physical Therapy Assessment Goals Four Impairment gait dysfunction Impairment requires the use of a straight cane or walker for safe mobility Media Intern Goal (LTG) Patient will be able to safely ambulate without an assistive device on level surfaces and with straight cane with outdoor, uneven ground and be able to ascend and descend stairs with step-over step pattern LTG Duration 12/22/23 Three Impairment weakness Impairment LE weakness including lack of full right knee extension Short Term Goal (STG) Review current HEP and progress as appropriate for LE strengthening, especially focused on terminal knee extension righ STG Duration 11/07/23 [facility] Goal (LTG) Patient to be independent and compliant with HEP and demonstrate 5/5 prabha LE strength to facilitate return to prior level of activity and safety with mobility LTG Duration 12/22/23 Two Impairment Activities in confidence balance scale Impairment 46 indicating low confidence in mobility Short Term Goal (STG) Improve ABC score to at least 60% STG Duration 11/07/23 [facility] Goal (LTG) Improve ABC score to at least 75% as measure of improved confidence in mobility in her home and the community LTG Duration 12/22/23 One Impairment Belcher Balance score Impairment 37/52 indicating moderate fall risk Short Term Goal (STG) Improve Belcher balance score to at least 44/52 STG Duration 11/07/23 Media Intern Goal (LTG) Improve Belcher balance score to at least 50/52 to reduce fall risk to low to allow patient to return to prior level of function safely LTG Duration 12/22/23 Assessment Summary Assessment frequent rest breaks required, CGA for balance ex today, no LOB during gait. Fatigued but feel will be able to progress balance exercises next session Physical Therapy Plan Frequency and Duration Frequency of Treatment 2x/Week Duration of treatment (weeks) 12 Plan of Care Start Date 09/22/23 Plan of Care End Date 12/22/23 Next Visit Focus/Plan Next Note Type Treatment Note Next Visit Plan Progress strengthening, balance, and gait activities.
--- NOTE | 2023-09-29 10:44 | PT.OTN ---
Current Diagnoses Spinal stenosis, lumbar region with neurogenic claudication (09/29/23) Other specified disorders of bone density and structure, unspecified site (09/29/23) Wedge compression fracture of fourth lumbar vertebra, initial encounter for closed fracture (09/29/23) Physical Therapy Treatment Note PT-OP-A Visit Information Start: 09/21/23 16:22 Freq: Status: Active Protocol: Document 09/29/23 08:59 SAK (Rec: 09/29/23 09:46 [facility] [id number]) Out-Patient Physical Therapy Visit Information Visit Information Visit Type Treatment Note Visit Note pt 5 min late Visit Start Time 09:05 Visit Stop Time 09:45 Visit Number 3 Evaluation Information Evaluation Date 09/22/23 Precautions Precautions High fear of falling, history L1 compression fracture PT-OP-B Current Condition Start: 09/21/23 16:22 Freq: Status: Active Protocol: Document 09/29/23 08:59 SAK (Rec: 09/29/23 09:46 SAK [id number]) Current Condition History of Current Condition Onset Date 04/20/24 Current Complaints weakness, back pain History of Current Condition compression fracture L1 when fell backward onto gravel going up stairs. Couldn't get up by herself. Son assisted her up and to her house. She just thought she bruised her back, couldn't get into see her primary physician. Went to walk in clinic. Diagnosed with L1 compression fracture. Referred to see Dr. Fair; had second x-ray at [facility]. Told to go home and take it easy and come back in 6 weeks. Fell again going into bank, couldn't feel right knee. Then stayed at home per doctor's recommendation and layed around, using a walker. Then went to [facility] due to hematuria, diagnosed with hemmorrhoid. Fell again stepping into shower wearing socks, then started taking sponge baths. Then didn't trust herself to do anything, fell again not being able to feel her knees and just dropped. Finally diagnosed with UTI, in hospital x 4 days . Feels she has lost a lot of strength. Practicing steps at hospital, fell as she started to descend due to losing balance. Then transferred to care facility in wheelchair or bed most of the time except with PT, states got weaker. Fell at care center as well due to unlocked chair. Had Home Health PT At this time back pain minimal, c/o weakness and fear of falling. Has been doing Home Health, now discharged. C/o weakness right greater than left. Prior Treatments and Tests x-ray: L1 compression fracture MRI: L3-L4: The disc height and disk signal are relatively well-preserved. Mild to moderate disc bulge is seen, with a central disc protrusion. At least moderate facet hypertrophy is seen. Associated hypertrophy of the ligamentum flavum can be seen. Fluid is seen within the facet joints themselves. There is moderate to severe bilateral neural foraminal narrowing seen, with an associated a degree of compression seen upon the exiting nerve roots. At least moderate central canal narrowing is seen. L4-L5: The disc height and disk signal are relatively well-preserved. Mild generalized disc bulge is seen. Moderate facet joint hypertrophy is seen. There is mild-to- moderate right-sided and no left-sided neural foraminal narrowing. No central canal narrowing is seen. L5-S1: At least moderate loss of disc height is seen. Mild to moderate disc bulge is seen, which is eccentric to the left. Mild to moderate facet hypertrophy is seen. No significant neural foraminal or central canal narrowing can be seen. 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 PT-OP-C Subjective Start: 09/21/23 16:22 Freq: Status: Active Protocol: Document 09/29/23 08:59 [facility] (Rec: 09/29/23 09:46 [facility] [id number]) OP-PT Subjective Patient Comments Patient Comments Drove to caodaism and walked in and out by herself PT-OP-D Balance Start: 09/21/23 16:22 Freq: Status: Active Protocol: Document 09/22/23 10:33 [facility] (Rec: 09/22/23 12:32 [facility] [id number]) OP-PT Balance Assessment Sitting Balance Static Sitting Balance Ability Normal Dynamic Sitting Balance Ability Normal Balance Tests Belcher Balance Test Belcher Balance Test Score 38 Belcher Balance Assessment Evaluation Sitting to Standing Ability Independent w/out Hands Unsupported Stance Safely- 2 minutes Sitting Unsupported, Feet on Floor Safely- 2 minutes Standing to Sitting Ability Assist, Control w/Hands Transfer Ability Safely, Hand Use Unsupported Stance- Eyes Closed Supervision, 10 seconds Unsupported Stance- Eyes Open Supervision to maintain Reaching Forward Standing Safely, 5 inches Pick- Up Object From Floor Supervision Look Behind Shoulder - Standing Shifts Weight Well Turning 360 Degrees Supervision/Verbal Cues Unsupported Stance, Alternating Feet on 4 Steps w/Supervision Stair Unsupported Tandem Stance Balance Lost- Step/Stand Unilateral Leg Stance Unable,assist to not fall Total Score Belcher Total Score (out of 56 points) 37 Tinetti Balance Assessment Sitting Balance Sitting Balance Steady, safe Scoring and Interpretation Tinetti Composite Score (points) 1 Squires Fall Scale Copyright Permission PT-OP-E Functional Tests Start: 09/21/23 16:22 Freq: Status: Active Protocol: Document 09/22/23 10:33 [facility] (Rec: 09/22/23 12:32 [facility] [id number]) Functional Tests 2 Minute Walk Test Distance 75 Five Times Sit to Stand Test Score 21 Comments UE use PT-OP-F Manual Assessment Start: 09/21/23 16:22 Freq: Status: Active Protocol: Document 09/22/23 10:33 SAK (Rec: 09/22/23 12:32 [facility] [id number]) Manual Assessments Soft Tissue Assessment Soft Tissue Mobility Assessment TTP lumbar spine with inc soft tissue tightness PT-OP-G Mobility & Gait Start: 09/21/23 16:22 Freq: Status: Active Protocol: Document 09/22/23 10:33 SAK (Rec: 09/22/23 12:32 [facility] [id number]) OP Gait Assessment Gait Gait Assistance Required: Independent Assistive Devices Assistive Device Straight Cane,4 Wheeled Walker Gait Deviations General Gait Pattern Decreased Stride Length, Decreased Feet Clearance Factors Limiting Gait Function Factors Limiting Gait Function Decreased Activity Tolerance, Decreased Strength Stair Climbing Evaluation Evaluation Level of Assist On Stairs Standby Assistance Devices Stair Climbing Assistive Devices Straight Cane,Left Railing Technique/Endurance Stair Climbing Direction Ascend and Descend Stair Climbing Technique Step to Step PT-OP-J Posture/Palpation/Skin Start: 09/21/23 16:22 Freq: Status: Active Protocol: Document 09/22/23 10:33 [facility]AK (Rec: 09/22/23 12:32 [facility] [id number]) Posture Evaluation Position Standing Evaluation View Lateral Head/C-Spine Posture Forward Head T-Spine Posture Increased Kyphosis L-Spine Posture Flattened PT-OP-K Range of Motion Start: 09/21/23 16:22 Freq: Status: Active Protocol: Document 09/22/23 10:33 SAK (Rec: 09/22/23 12:32 [facility] [id number]) Lumbar Spine Range of Motion Lumbar Spine Active Flexion 20 Hip Goniometric Range of Motion Hip prabha Hip ROM WFL No Knee Goniometric Range of Motion Knee prabha Knee ROM WFL Yes Comments except lacking terminal extension right knee -8 Knee ROM Limitations Knee ROM Limitations Muscle Weakness Ankle and Foot Goniometric Range of Motion Ankle and Foot prabha Ankle/Foot ROM WFL Yes PT-OP-M Strength Start: 09/21/23 16:22 Freq: Status: Active Protocol: Document 09/22/23 10:33 [facility] (Rec: 09/22/23 12:32 [facility] [id number]) Trunk Strength Trunk Manual Muscle Testing Flexion 3+ Fair+ Extension 3+ Fair+ Hip Strength Hip Manual Muscle Testing prabha Flexion (L2) 3+ Fair+ Extension (S1) 3- Fair- Abduction 3+ Fair+ Knee Strength Knee Manual Muscle Testing Right Flexion (S2) 4 Good Extension (L3) 3- Fair- Left Flexion (S2) 4+ Good+ Extension (L3) 4+ Good+ Ankle/Foot Strength Ankle and Foot Manual Muscle Testing Right Dorsiflexion (L4) 4 Good Plantarflexion (S1) 4 Good Left Dorsiflexion (L4) 5 Normal Plantarflexion (S1) 5 Normal PT-OP-Q Treatments Start: 09/21/23 16:22 Freq: Status: Active Protocol: Document 09/29/23 08:59 SAK (Rec: 09/29/23 09:46 [facility] [id number]) Cardio Equipment Recumbent Stepper (Sci-Fit) Duration (Minutes) 5 Resistance 2 Seat Position 11 Gym Equipment Shuttle Recovery Unilateral Squats Details prabha Resistance 37 Shuttle Recovery Platform Stable Reps/Time 2x10 Bilateral Squats Resistance 62 Shuttle Recovery Platform Stable Reps/Time 10x2 Therapeutic Exercises Sitting Exercises chair squat Sitting Exercise Name next session Standing Exercises heel raises Standing Exercise Name eccentric lowering Reps/Minutes next session Gait Training Gait Activity level Description throught session Device Used SPC left UE Level of Assistance CGA Surface firm carpet, tile, pavement Distance/Duration 175 ft total Treatment Focus safety Comments try gait training with no cane next session Neuro Re-Education Treatment Balance Activities obstacle course Details hurdles, blue foam 4 and 6 box Equipment SPC, gait belt Reps/Duration 6x through Comments CG to min assist balance foam walk Comments next session tandem stand Details EO, head turns Equipment wall bar, gait belt Reps/Duration 2x30 Comments patient CG to min UE support step touch Equipment 6 step Reps/Duration 10x2 Self-Care/Home Management Treatment Education Other Education issued updated HO PT-OP-R Modalities Start: 09/21/23 16:22 Freq: Status: Active Protocol: Document 09/22/23 10:33 [facility] (Rec: 09/22/23 12:32 [facility] [id number]) Hot Pack/Cold Pack Treatment Cold Pack Location lumbar spine Patient Position Sitting PT-OP-T Assessment and Plan Start: 09/21/23 16:22 Freq: Status: Active Protocol: Document 09/29/23 08:59 [facility] (Rec: 09/29/23 10:44 [facility] [id number]) Physical Therapy Assessment Impairments Impairments Activity Tolerance,Balance, Gait,Strength Goals Four Impairment gait dysfunction Impairment requires the use of a straight cane or walker for safe mobility Mcfp Goal (LTG) Patient will be able to safely ambulate without an assistive device on level surfaces and with straight cane with outdoor, uneven ground and be able to ascend and descend stairs with step-over step pattern LTG Duration 12/22/23 Three Impairment weakness Impairment LE weakness including lack of full right knee extension Short Term Goal (STG) Review current HEP and progress as appropriate for LE strengthening, especially focused on terminal knee extension righ STG Duration 11/07/23 Gamb Cutter Goal (LTG) Patient to be independent and compliant with HEP and demonstrate 5/5 prabha LE strength to facilitate return to prior level of activity and safety with mobility LTG Duration 12/22/23 Two Impairment Activities in confidence balance scale Impairment 46 indicating low confidence in mobility Short Term Goal (STG) Improve ABC score to at least 60% STG Duration 11/07/23 Mcfp Goal (LTG) Improve ABC score to at least 75% as measure of improved confidence in mobility in her home and the community LTG Duration 12/22/23 One Impairment Belcher Balance score Impairment 37/52 indicating moderate fall risk Short Term Goal (STG) Improve Belcher balance score to at least 44/52 STG Duration 11/07/23 Gamb Cutter Goal (LTG) Improve Belcher balance score to at least 50/52 to reduce fall risk to low to allow patient to return to prior level of function safely LTG Duration 12/22/23 Assessment Summary Assessment Tolerated progression of ther ex and neuro re-ed activities, expressing fear but also determination. Updated HEP HO . Occasional seated rest breaks. Physical Therapy Plan Frequency and Duration Frequency of Treatment 2x/Week Duration of treatment (weeks) 12 Plan of Care Start Date 09/22/23 Plan of Care End Date 12/22/23 Therapeutic Interventions Therapeutic Interventions Balance Training,Gait Training ,Home Exercise Program,Manual Therapy,Patient/Caregiver Education,Self-Care/Home Management,Soft Tissue Mobilization,Taping, Therapeutic Activities, Therapeutic Exercises Modalities Cold Pack/Ice Massage,Electric Stimulation,Hot Packs, Ultrasound Next Visit Focus/Plan Next Note Type Treatment Note Next Visit Plan Progress strengthening, balance, and gait activities.
--- NOTE | 2023-10-01 16:13 | PT.OTN ---
Current Diagnoses Spinal stenosis, lumbar region with neurogenic claudication (10/01/23) Other specified disorders of bone density and structure, unspecified site (10/01/23) Wedge compression fracture of fourth lumbar vertebra, initial encounter for closed fracture (10/01/23) Physical Therapy Treatment Note PT-OP-A Visit Information Start: 09/21/23 16:22 Freq: Status: Active Protocol: Document 10/01/23 15:21 SW (Rec: 10/01/23 16:13 SW [id number]) Out-Patient Physical Therapy Visit Information Visit Information Visit Type Treatment Note Visit Start Time 15:16 Visit Stop Time 15:55 Visit Number 4 Number of COATING OPERATOR Visits 1 Precautions Precautions High fear of falling, history L1 compression fracture PT-OP-B Current Condition Start: 09/21/23 16:22 Freq: Status: Active Protocol: Document 09/29/23 08:59 SAK (Rec: 09/29/23 09:46 SAK [id number]) Current Condition History of Current Condition Onset Date 04/20/24 Current Complaints weakness, back pain History of Current Condition compression fracture L1 when fell backward onto gravel going up stairs. Couldn't get up by herself. Son assisted her up and to her house. She just thought she bruised her back, couldn't get into see her primary physician. Went to walk in clinic. Diagnosed with L1 compression fracture. Referred to see Dr. Fair; had second x-ray at [facility]. Told to go home and take it easy and come back in 6 weeks. Fell again going into bank, couldn't feel right knee. Then stayed at home per doctor's recommendation and layed around, using a walker. Then went to [facility] due to hematuria, diagnosed with hemmorrhoid. Fell again stepping into shower wearing socks, then started taking sponge baths. Then didn't trust herself to do anything, fell again not being able to feel her knees and just dropped. Finally diagnosed with UTI, in hospital x 4 days . Feels she has lost a lot of strength. Practicing steps at hospital, fell as she started to descend due to losing balance. Then transferred to care facility in wheelchair or bed most of the time except with PT, states got weaker. Fell at care center as well due to unlocked chair. Had Home Health PT At this time back pain minimal, c/o weakness and fear of falling. Has been doing Home Health, now discharged. C/o weakness right greater than left. Prior Treatments and Tests x-ray: L1 compression fracture MRI: L3-L4: The disc height and disk signal are relatively well-preserved. Mild to moderate disc bulge is seen, with a central disc protrusion. At least moderate facet hypertrophy is seen. Associated hypertrophy of the ligamentum flavum can be seen. Fluid is seen within the facet joints themselves. There is moderate to severe bilateral neural foraminal narrowing seen, with an associated a degree of compression seen upon the exiting nerve roots. At least moderate central canal narrowing is seen. L4-L5: The disc height and disk signal are relatively well-preserved. Mild generalized disc bulge is seen. Moderate facet joint hypertrophy is seen. There is mild-to- moderate right-sided and no left-sided neural foraminal narrowing. No central canal narrowing is seen. L5-S1: At least moderate loss of disc height is seen. Mild to moderate disc bulge is seen, which is eccentric to the left. Mild to moderate facet hypertrophy is seen. No significant neural foraminal or central canal narrowing can be seen. 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 PT-OP-C Subjective Start: 09/21/23 16:22 Freq: Status: Active Protocol: Document 10/01/23 15:21 (Rec: 10/01/23 16:13 SW [id number]) OP-PT Subjective Patient Comments Patient Comments Pt reports not sure how session will go today, has been busy out to [place] today . Pt interested in pelvic floor rehab for bladder control. PT-OP-D Balance Start: 09/21/23 16:22 Freq: Status: Active Protocol: Document 09/22/23 10:33 SAK (Rec: 09/22/23 12:32 SAK [id number]) OP-PT Balance Assessment Sitting Balance Static Sitting Balance Ability Normal Dynamic Sitting Balance Ability Normal Balance Tests Belcher Balance Test Belcher Balance Test Score 38 Belcher Balance Assessment Evaluation Sitting to Standing Ability Independent w/out Hands Unsupported Stance Safely- 2 minutes Sitting Unsupported, Feet on Floor Safely- 2 minutes Standing to Sitting Ability Assist, Control w/Hands Transfer Ability Safely, Hand Use Unsupported Stance- Eyes Closed Supervision, 10 seconds Unsupported Stance- Eyes Open Supervision to maintain Reaching Forward Standing Safely, 5 inches Pick- Up Object From Floor Supervision Look Behind Shoulder - Standing Shifts Weight Well Turning 360 Degrees Supervision/Verbal Cues Unsupported Stance, Alternating Feet on 4 Steps w/Supervision Stair Unsupported Tandem Stance Balance Lost- Step/Stand Unilateral Leg Stance Unable,assist to not fall Total Score Belcher Total Score (out of 56 points) 37 Tinetti Balance Assessment Sitting Balance Sitting Balance Steady, safe Scoring and Interpretation Tinetti Composite Score (points) 1 Squires Fall Scale Copyright Permission PT-OP-E Functional Tests Start: 09/21/23 16:22 Freq: Status: Active Protocol: Document 09/22/23 10:33 [facility] (Rec: 09/22/23 12:32 [facility] [id number]) Functional Tests 2 Minute Walk Test Distance 75 Five Times Sit to Stand Test Score 21 Comments UE use PT-OP-F Manual Assessment Start: 09/21/23 16:22 Freq: Status: Active Protocol: Document 09/22/23 10:33 [facility] (Rec: 09/22/23 12:32 [facility] [id number]) Manual Assessments Soft Tissue Assessment Soft Tissue Mobility Assessment TTP lumbar spine with inc soft tissue tightness PT-OP-G Mobility & Gait Start: 09/21/23 16:22 Freq: Status: Active Protocol: Document 09/22/23 10:33 SAK (Rec: 09/22/23 12:32 [facility] [id number]) OP Gait Assessment Gait Gait Assistance Required: Independent Assistive Devices Assistive Device Straight Cane,4 Wheeled Walker Gait Deviations General Gait Pattern Decreased Stride Length, Decreased Feet Clearance Factors Limiting Gait Function Factors Limiting Gait Function Decreased Activity Tolerance, Decreased Strength Stair Climbing Evaluation Evaluation Level of Assist On Stairs Standby Assistance Devices Stair Climbing Assistive Devices Straight Cane,Left Railing Technique/Endurance Stair Climbing Direction Ascend and Descend Stair Climbing Technique Step to Step PT-OP-J Posture/Palpation/Skin Start: 09/21/23 16:22 Freq: Status: Active Protocol: Document 09/22/23 10:33 SAK (Rec: 09/22/23 12:32 [facility] [id number]) Posture Evaluation Position Standing Evaluation View Lateral Head/C-Spine Posture Forward Head T-Spine Posture Increased Kyphosis L-Spine Posture Flattened PT-OP-K Range of Motion Start: 09/21/23 16:22 Freq: Status: Active Protocol: Document 09/22/23 10:33 SAK (Rec: 09/22/23 12:32 SAK [id number]) Lumbar Spine Range of Motion Lumbar Spine Active Flexion 20 Hip Goniometric Range of Motion Hip prabha Hip ROM WFL No Knee Goniometric Range of Motion Knee prabha Knee ROM WFL Yes Comments except lacking terminal extension right knee -8 Knee ROM Limitations Knee ROM Limitations Muscle Weakness Ankle and Foot Goniometric Range of Motion Ankle and Foot prabha Ankle/Foot ROM WFL Yes PT-OP-M Strength Start: 09/21/23 16:22 Freq: Status: Active Protocol: Document 09/22/23 10:33 SAK (Rec: 09/22/23 12:32 SAK [id number]) Trunk Strength Trunk Manual Muscle Testing Flexion 3+ Fair+ Extension 3+ Fair+ Hip Strength Hip Manual Muscle Testing prabha Flexion (L2) 3+ Fair+ Extension (S1) 3- Fair- Abduction 3+ Fair+ Knee Strength Knee Manual Muscle Testing Right Flexion (S2) 4 Good Extension (L3) 3- Fair- Left Flexion (S2) 4+ Good+ Extension (L3) 4+ Good+ Ankle/Foot Strength Ankle and Foot Manual Muscle Testing Right Dorsiflexion (L4) 4 Good Plantarflexion (S1) 4 Good Left Dorsiflexion (L4) 5 Normal Plantarflexion (S1) 5 Normal PT-OP-Q Treatments Start: 09/21/23 16:22 Freq: Status: Active Protocol: Document 10/01/23 15:21 SW (Rec: 10/01/23 16:13 SW [id number]) Cardio Equipment Recumbent Stepper (Sci-Fit) Duration (Minutes) 5 Resistance 2 Seat Position 11 Gym Equipment Shuttle Recovery Unilateral Squats Details prabah Resistance 37# Shuttle Recovery Platform Stable Reps/Time 3x10 Bilateral Squats Resistance 75# (3 old) Shuttle Recovery Platform Stable Reps/Time 10x2 Therapeutic Exercises Sitting Exercises chair squat Sitting Exercise Name Chair squat Equipment Used mesh chair, airex Reps/Minutes 2 x 5 Comments cues for mechanics Standing Exercises heel raises Standing Exercise Name eccentric lowering Reps/Minutes 3x10 Comments cues for compensations Neuro Re-Education Treatment Balance Activities step touch Equipment 6 step Reps/Duration 10x2 PT-OP-R Modalities Start: 09/21/23 16:22 Freq: Status: Active Protocol: Document 09/22/23 10:33 SAK (Rec: 09/22/23 12:32 SAK [id number]) Hot Pack/Cold Pack Treatment Cold Pack Location lumbar spine Patient Position Sitting PT-OP-T Assessment and Plan Start: 09/21/23 16:22 Freq: Status: Active Protocol: Document 10/01/23 15:21 SW (Rec: 10/01/23 16:13 SW [id number]) Physical Therapy Assessment Goals Four Impairment gait dysfunction Impairment requires the use of a straight cane or walker for safe mobility Bike Shop Manager Goal (LTG) Patient will be able to safely ambulate without an assistive device on level surfaces and with straight cane with outdoor, uneven ground and be able to ascend and descend stairs with step-over step pattern LTG Duration 12/22/23 Three Impairment weakness Impairment LE weakness including lack of full right knee extension Short Term Goal (STG) Review current HEP and progress as appropriate for LE strengthening, especially focused on terminal knee extension righ STG Duration 11/07/23 Bike Shop Manager Goal (LTG) Patient to be independent and compliant with HEP and demonstrate 5/5 prabha LE strength to facilitate return to prior level of activity and safety with mobility LTG Duration 12/22/23 Two Impairment Activities in confidence balance scale Impairment 46 indicating low confidence in mobility Short Term Goal (STG) Improve ABC score to at least 60% STG Duration 11/07/23 Bike Shop Manager Goal (LTG) Improve ABC score to at least 75% as measure of improved confidence in mobility in her home and the community LTG Duration 12/22/23 One Impairment Belcher Balance score Impairment 37/52 indicating moderate fall risk Short Term Goal (STG) Improve Belcher balance score to at least 44/52 STG Duration 11/07/23 Prison Goal (LTG) Improve Belcher balance score to at least 50/52 to reduce fall risk to low to allow patient to return to prior level of function safely LTG Duration 12/22/23 Assessment Summary Assessment Pt fatigued this session due to busy day in [place]. Progressed weight with shuttle recovery. Initiated STS this session on elevated surface, verbal cues for correct mechanics, focused on hinging at hips. Pt highly motivated. Physical Therapy Plan Frequency and Duration Frequency of Treatment 2x/Week Duration of treatment (weeks) 12 Plan of Care Start Date 09/22/23 Plan of Care End Date 12/22/23 Therapeutic Interventions Therapeutic Interventions Balance Training,Gait Training ,Home Exercise Program,Manual Therapy,Patient/Caregiver Education,Self-Care/Home Management,Soft Tissue Mobilization,Taping, Therapeutic Activities, Therapeutic Exercises Modalities Cold Pack/Ice Massage,Electric Stimulation,Hot Packs, Ultrasound Next Visit Focus/Plan Next Note Type Treatment Note Next Visit Plan Progress strengthening, balance, and gait activities.
--- NOTE | 2023-10-06 14:37 | PT.OTN ---
Current Diagnoses Spinal stenosis, lumbar region with neurogenic claudication (10/06/23) Other specified disorders of bone density and structure, unspecified site (10/06/23) Wedge compression fracture of fourth lumbar vertebra, initial encounter for closed fracture (10/06/23) Physical Therapy Treatment Note PT-OP-A Visit Information Start: 09/21/23 16:22 Freq: Status: Active Protocol: Document 10/06/23 13:50 SP (Rec: 10/06/23 14:39 SP [id number]) Out-Patient Physical Therapy Visit Information Visit Information Visit Type Treatment Note Visit Start Time 13:50 Visit Stop Time 14:37 Visit Number 5 Number of OPERATION SPECIALIST Visits 2 Evaluation Information Evaluation Date 09/22/23 Precautions Precautions High fear of falling, history L1 compression fracture PT-OP-B Current Condition Start: 09/21/23 16:22 Freq: Status: Active Protocol: Document 09/29/23 08:59 SAK (Rec: 09/29/23 09:46 SAK [id number]) Current Condition History of Current Condition Onset Date 04/20/24 Current Complaints weakness, back pain History of Current Condition compression fracture L1 when fell backward onto gravel going up stairs. Couldn't get up by herself. Son assisted her up and to her house. She just thought she bruised her back, couldn't get into see her primary physician. Went to walk in clinic. Diagnosed with L1 compression fracture. Referred to see Dr. Fair; had second x-ray at [facility]. Told to go home and take it easy and come back in 6 weeks. Fell again going into bank, couldn't feel right knee. Then stayed at home per doctor's recommendation and layed around, using a walker. Then went to [facility] due to hematuria, diagnosed with hemmorrhoid. Fell again stepping into shower wearing socks, then started taking sponge baths. Then didn't trust herself to do anything, fell again not being able to feel her knees and just dropped. Finally diagnosed with UTI, in hospital x 4 days . Feels she has lost a lot of strength. Practicing steps at hospital, fell as she started to descend due to losing balance. Then transferred to care facility in wheelchair or bed most of the time except with PT, states got weaker. Fell at care center as well due to unlocked chair. Had Home Health PT At this time back pain minimal, c/o weakness and fear of falling. Has been doing Home Health, now discharged. C/o weakness right greater than left. Prior Treatments and Tests x-ray: L1 compression fracture MRI: L3-L4: The disc height and disk signal are relatively well-preserved. Mild to moderate disc bulge is seen, with a central disc protrusion. At least moderate facet hypertrophy is seen. Associated hypertrophy of the ligamentum flavum can be seen. Fluid is seen within the facet joints themselves. There is moderate to severe bilateral neural foraminal narrowing seen, with an associated a degree of compression seen upon the exiting nerve roots. At least moderate central canal narrowing is seen. L4-L5: The disc height and disk signal are relatively well-preserved. Mild generalized disc bulge is seen. Moderate facet joint hypertrophy is seen. There is mild-to- moderate right-sided and no left-sided neural foraminal narrowing. No central canal narrowing is seen. L5-S1: At least moderate loss of disc height is seen. Mild to moderate disc bulge is seen, which is eccentric to the left. Mild to moderate facet hypertrophy is seen. No significant neural foraminal or central canal narrowing can be seen. 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 PT-OP-C Subjective Start: 09/21/23 16:22 Freq: Status: Active Protocol: Document 10/06/23 13:50 SP (Rec: 10/06/23 14:39 SP [id number]) OP-PT Subjective Patient Comments Patient Comments Pt reports needs to cancel Th appt and add more appts for 2x /wk through October to keep on track for strengthening. PT-OP-D Balance Start: 09/21/23 16:22 Freq: Status: Active Protocol: Document 09/22/23 10:33 SAK (Rec: 09/22/23 12:32 SAK [id number]) OP-PT Balance Assessment Sitting Balance Static Sitting Balance Ability Normal Dynamic Sitting Balance Ability Normal Balance Tests Belcher Balance Test Belcher Balance Test Score 38 Belcher Balance Assessment Evaluation Sitting to Standing Ability Independent w/out Hands Unsupported Stance Safely- 2 minutes Sitting Unsupported, Feet on Floor Safely- 2 minutes Standing to Sitting Ability Assist, Control w/Hands Transfer Ability Safely, Hand Use Unsupported Stance- Eyes Closed Supervision, 10 seconds Unsupported Stance- Eyes Open Supervision to maintain Reaching Forward Standing Safely, 5 inches Pick- Up Object From Floor Supervision Look Behind Shoulder - Standing Shifts Weight Well Turning 360 Degrees Supervision/Verbal Cues Unsupported Stance, Alternating Feet on 4 Steps w/Supervision Stair Unsupported Tandem Stance Balance Lost- Step/Stand Unilateral Leg Stance Unable,assist to not fall Total Score Belcher Total Score (out of 56 points) 37 Tinetti Balance Assessment Sitting Balance Sitting Balance Steady, safe Scoring and Interpretation Tinetti Composite Score (points) 1 Squires Fall Scale Copyright Permission PT-OP-E Functional Tests Start: 09/21/23 16:22 Freq: Status: Active Protocol: Document 09/22/23 10:33 [facility] (Rec: 09/22/23 12:32 [facility] [id number]) Functional Tests 2 Minute Walk Test Distance 75 Five Times Sit to Stand Test Score 21 Comments UE use PT-OP-F Manual Assessment Start: 09/21/23 16:22 Freq: Status: Active Protocol: Document 09/22/23 10:33 [facility] (Rec: 09/22/23 12:32 [facility] [id number]) Manual Assessments Soft Tissue Assessment Soft Tissue Mobility Assessment TTP lumbar spine with inc soft tissue tightness PT-OP-G Mobility & Gait Start: 09/21/23 16:22 Freq: Status: Active Protocol: Document 09/22/23 10:33 [facility] (Rec: 09/22/23 12:32 [facility] [id number]) OP Gait Assessment Gait Gait Assistance Required: Independent Assistive Devices Assistive Device Straight Cane,4 Wheeled Walker Gait Deviations General Gait Pattern Decreased Stride Length, Decreased Feet Clearance Factors Limiting Gait Function Factors Limiting Gait Function Decreased Activity Tolerance, Decreased Strength Stair Climbing Evaluation Evaluation Level of Assist On Stairs Standby Assistance Devices Stair Climbing Assistive Devices Straight Cane,Left Railing Technique/Endurance Stair Climbing Direction Ascend and Descend Stair Climbing Technique Step to Step PT-OP-J Posture/Palpation/Skin Start: 09/21/23 16:22 Freq: Status: Active Protocol: Document 09/22/23 10:33 [facility] (Rec: 09/22/23 12:32 [facility] [id number]) Posture Evaluation Position Standing Evaluation View Lateral Head/C-Spine Posture Forward Head T-Spine Posture Increased Kyphosis L-Spine Posture Flattened PT-OP-K Range of Motion Start: 09/21/23 16:22 Freq: Status: Active Protocol: Document 09/22/23 10:33 SAK (Rec: 09/22/23 12:32 SAK [id number]) Lumbar Spine Range of Motion Lumbar Spine Active Flexion 20 Hip Goniometric Range of Motion Hip prabha Hip ROM WFL No Knee Goniometric Range of Motion Knee prabha Knee ROM WFL Yes Comments except lacking terminal extension right knee -8 Knee ROM Limitations Knee ROM Limitations Muscle Weakness Ankle and Foot Goniometric Range of Motion Ankle and Foot prabha Ankle/Foot ROM WFL Yes PT-OP-M Strength Start: 09/21/23 16:22 Freq: Status: Active Protocol: Document 09/22/23 10:33 [facility] (Rec: 09/22/23 12:32 [facility] [id number]) Trunk Strength Trunk Manual Muscle Testing Flexion 3+ Fair+ Extension 3+ Fair+ Hip Strength Hip Manual Muscle Testing prabha Flexion (L2) 3+ Fair+ Extension (S1) 3- Fair- Abduction 3+ Fair+ Knee Strength Knee Manual Muscle Testing Right Flexion (S2) 4 Good Extension (L3) 3- Fair- Left Flexion (S2) 4+ Good+ Extension (L3) 4+ Good+ Ankle/Foot Strength Ankle and Foot Manual Muscle Testing Right Dorsiflexion (L4) 4 Good Plantarflexion (S1) 4 Good Left Dorsiflexion (L4) 5 Normal Plantarflexion (S1) 5 Normal PT-OP-Q Treatments Start: 09/21/23 16:22 Freq: Status: Active Protocol: Document 10/06/23 13:50 SP (Rec: 10/06/23 14:39 SP [id number]) Cardio Equipment Recumbent Stepper (Sci-Fit) Duration (Minutes) 12 Resistance 3 Seat Position 11 Other LEs only 59-60 RPMs Gym Equipment Shuttle Recovery Unilateral Squats Details prabha, cued slower ecc direction , not lock knee ext Resistance 37#> 37# (1 navy) Shuttle Recovery Platform Stable Reps/Time 2x10 Bilateral Squats Details cued not lock into ext Resistance 75# (3 teal) -Next tx 1 navy Shuttle Recovery Platform Stable Reps/Time 10x2 each, RLE weaker tired by last rep Therapeutic Exercises Sitting Exercises chair squat Sitting Exercise Name sit stands Equipment Used mesh chair 1 hand (needed) asc /no hands descend, unable asc no UE 10/04 Reps/Minutes MANY reps Comments cues working on body mechanics for progress to no UE. Standing Exercises hip abd Side bilateral Resistance 4# leg wt Equipment Used rail support Reps/Minutes 2x12 Comments little R LS tension like R side weak, pnfree HS curls Standing Exercise Name trialed Resistance 4# leg wt Equipment Used rail support Reps/Minutes 2x12 Comments good form, tiring & pnfree heel raises Standing Exercise Name eccentric lowering Resistance 4# leg wt Reps/Minutes 2x12 Comments cues for compensations PT-OP-R Modalities Start: 09/21/23 16:22 Freq: Status: Active Protocol: Document 09/22/23 10:33 SAK (Rec: 09/22/23 12:32 SAK [id number]) Hot Pack/Cold Pack Treatment Cold Pack Location lumbar spine Patient Position Sitting PT-OP-T Assessment and Plan Start: 09/21/23 16:22 Freq: Status: Active Protocol: Document 10/06/23 13:50 SP (Rec: 10/06/23 14:39 SP [id number]) Physical Therapy Assessment Goals Four Impairment gait dysfunction Impairment requires the use of a straight cane or walker for safe mobility Shelter Goal (LTG) Patient will be able to safely ambulate without an assistive device on level surfaces and with straight cane with outdoor, uneven ground and be able to ascend and descend stairs with step-over step pattern LTG Duration 12/22/23 Three Impairment weakness Impairment LE weakness including lack of full right knee extension Short Term Goal (STG) Review current HEP and progress as appropriate for LE strengthening, especially focused on terminal knee extension righ STG Duration 11/07/23 Progressive Care Manager Goal (LTG) Patient to be independent and compliant with HEP and demonstrate 5/5 prabha LE strength to facilitate return to prior level of activity and safety with mobility LTG Duration 12/22/23 Two Impairment Activities in confidence balance scale Impairment 46 indicating low confidence in mobility Short Term Goal (STG) Improve ABC score to at least 60% STG Duration 11/07/23 Progressive Care Manager Goal (LTG) Improve ABC score to at least 75% as measure of improved confidence in mobility in her home and the community LTG Duration 12/22/23 One Impairment Belcher Balance score Impairment 37/52 indicating moderate fall risk Short Term Goal (STG) Improve Belcher balance score to at least 44/52 STG Duration 11/07/23 Shelter Goal (LTG) Improve Belcher balance score to at least 50/52 to reduce fall risk to low to allow patient to return to prior level of function safely LTG Duration 12/22/23 Assessment Summary Assessment Pt improved hip hinge mechanics with ability to complete ascend STS use L UE and no UE, cues for descending more slower controlled. She tolerated increase slight resistance on shuttle recovery SL squats and added weight to HEP review. Physical Therapy Plan Frequency and Duration Frequency of Treatment 2x/Week Duration of treatment (weeks) 12 Plan of Care Start Date 09/22/23 Plan of Care End Date 12/22/23 Therapeutic Interventions Therapeutic Interventions Balance Training,Gait Training ,Home Exercise Program,Manual Therapy,Patient/Caregiver Education,Self-Care/Home Management,Soft Tissue Mobilization,Taping, Therapeutic Activities, Therapeutic Exercises Modalities Cold Pack/Ice Massage,Electric Stimulation,Hot Packs, Ultrasound Next Visit Focus/Plan Next Note Type Treatment Note Next Visit Plan Check added more appts. Assess response to added resistance to HEP review. Next tx: continue resistance, ed TA incorporation with mobility. Trial hurdles, gait without AD and uneven surfaces progress goal. Progress strengthening, balance, and gait activities.
--- NOTE | 2023-10-07 16:29 | PT.OTN ---
Current Diagnoses Spinal stenosis, lumbar region with neurogenic claudication (10/07/23) Other specified disorders of bone density and structure, unspecified site (10/07/23) Wedge compression fracture of fourth lumbar vertebra, initial encounter for closed fracture (10/07/23) Physical Therapy Treatment Note PT-OP-A Visit Information Start: 09/21/23 16:22 Freq: Status: Active Protocol: Document 10/07/23 12:54 AB (Rec: 10/07/23 13:47 AB [id number]) Out-Patient Physical Therapy Visit Information Visit Information Visit Type Treatment Note Visit Note Access Code [email or web address] Visit Start Time 13:01 Visit Stop Time 13:44 Visit Number 6 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 Couldn't get up by herself. Son assisted her up and to her house. She just thought she bruised her back, couldn't get into see her primary physician. Went to walk in clinic. Diagnosed with L1 compression fracture. Referred to see Dr. Fair; had second x-ray at [facility]. Told to go home and take it easy and come back in 6 weeks. Fell again going into bank, couldn't feel right knee. Then stayed at home per doctor's recommendation and layed around, using a walker. Then went to [facility] due to hematuria, diagnosed with hemmorrhoid. Fell again stepping into shower wearing socks, then started taking sponge baths. Then didn't trust herself to do anything, fell again not being able to feel her knees and just dropped. Finally diagnosed with UTI, in hospital x 4 days . Feels she has lost a lot of strength. Practicing steps at hospital, fell as she started to descend due to losing balance. Then transferred to care facility in wheelchair or bed most of the time except with PT, states got weaker. Fell at care center as well due to unlocked chair. Had Home Health PT At this time back pain minimal, c/o weakness and fear of falling. Has been doing Home Health, now discharged. C/o weakness right greater than left. Prior Treatments and Tests x-ray: L1 compression fracture MRI: L3-L4: The disc height and disk signal are relatively well-preserved. Mild to moderate disc bulge is seen, with a central disc protrusion. At least moderate facet hypertrophy is seen. Associated hypertrophy of the ligamentum flavum can be seen. Fluid is seen within the facet joints themselves. There is moderate to severe bilateral neural foraminal narrowing seen, with an associated a degree of compression seen upon the exiting nerve roots. At least moderate central canal narrowing is seen. L4-L5: The disc height and disk signal are relatively well-preserved. Mild generalized disc bulge is seen. Moderate facet joint hypertrophy is seen. There is mild-to- moderate right-sided and no left-sided neural foraminal narrowing. No central canal narrowing is seen. L5-S1: At least moderate loss of disc height is seen. Mild to moderate disc bulge is seen, which is eccentric to the left. Mild to moderate facet hypertrophy is seen. No significant neural foraminal or central canal narrowing can be seen. 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 PT-OP-C Subjective Start: 09/21/23 16:22 Freq: Status: Active Protocol: Document 10/07/23 12:54 AB (Rec: 10/07/23 13:47 AB [id number]) OP-PT Subjective Patient Comments Patient Comments Patient reports she has appts up until November 23 she thinks. Patient reports she was fine post previous session. Patient reports she performs exercises at least once a day sometimes twice. PT-OP-D Balance Start: 09/21/23 16:22 Freq: Status: Active Protocol: Document 09/22/23 10:33 SAK (Rec: 09/22/23 12:32 SAK [id number]) OP-PT Balance Assessment Sitting Balance Static Sitting Balance Ability Normal Dynamic Sitting Balance Ability Normal Balance Tests Belcher Balance Test Belcher Balance Test Score 38 Belcher Balance Assessment Evaluation Sitting to Standing Ability Independent w/out Hands Unsupported Stance Safely- 2 minutes Sitting Unsupported, Feet on Floor Safely- 2 minutes Standing to Sitting Ability Assist, Control w/Hands Transfer Ability Safely, Hand Use Unsupported Stance- Eyes Closed Supervision, 10 seconds Unsupported Stance- Eyes Open Supervision to maintain Reaching Forward Standing Safely, 5 inches Pick- Up Object From Floor Supervision Look Behind Shoulder - Standing Shifts Weight Well Turning 360 Degrees Supervision/Verbal Cues Unsupported Stance, Alternating Feet on 4 Steps w/Supervision Stair Unsupported Tandem Stance Balance Lost- Step/Stand Unilateral Leg Stance Unable,assist to not fall Total Score Belcher Total Score (out of 56 points) 37 Tinetti Balance Assessment Sitting Balance Sitting Balance Steady, safe Scoring and Interpretation Tinetti Composite Score (points) 1 Squires Fall Scale Copyright Permission PT-OP-E Functional Tests Start: 09/21/23 16:22 Freq: Status: Active Protocol: Document 09/22/23 10:33 [facility] (Rec: 09/22/23 12:32 [facility] [id number]) Functional Tests 2 Minute Walk Test Distance 75 Five Times Sit to Stand Test Score 21 Comments UE use PT-OP-F Manual Assessment Start: 09/21/23 16:22 Freq: Status: Active Protocol: Document 09/22/23 10:33 SAK (Rec: 09/22/23 12:32 [facility] [id number]) Manual Assessments Soft Tissue Assessment Soft Tissue Mobility Assessment TTP lumbar spine with inc soft tissue tightness PT-OP-G Mobility & Gait Start: 09/21/23 16:22 Freq: Status: Active Protocol: Document 09/22/23 10:33 SAK (Rec: 09/22/23 12:32 [facility] [id number]) OP Gait Assessment Gait Gait Assistance Required: Independent Assistive Devices Assistive Device Straight Cane,4 Wheeled Walker Gait Deviations General Gait Pattern Decreased Stride Length, Decreased Feet Clearance Factors Limiting Gait Function Factors Limiting Gait Function Decreased Activity Tolerance, Decreased Strength Stair Climbing Evaluation Evaluation Level of Assist On Stairs Standby Assistance Devices Stair Climbing Assistive Devices Straight Cane,Left Railing Technique/Endurance Stair Climbing Direction Ascend and Descend Stair Climbing Technique Step to Step PT-OP-J Posture/Palpation/Skin Start: 09/21/23 16:22 Freq: Status: Active Protocol: Document 09/22/23 10:33 SAK (Rec: 09/22/23 12:32 [facility] [id number]) Posture Evaluation Position Standing Evaluation View Lateral Head/C-Spine Posture Forward Head T-Spine Posture Increased Kyphosis L-Spine Posture Flattened PT-OP-K Range of Motion Start: 09/21/23 16:22 Freq: Status: Active Protocol: Document 09/22/23 10:33 SAK (Rec: 09/22/23 12:32 SAK [id number]) Lumbar Spine Range of Motion Lumbar Spine Active Flexion 20 Hip Goniometric Range of Motion Hip prabha Hip ROM WFL No Knee Goniometric Range of Motion Knee prabha Knee ROM WFL Yes Comments except lacking terminal extension right knee -8 Knee ROM Limitations Knee ROM Limitations Muscle Weakness Ankle and Foot Goniometric Range of Motion Ankle and Foot prabha Ankle/Foot ROM WFL Yes PT-OP-M Strength Start: 09/21/23 16:22 Freq: Status: Active Protocol: Document 09/22/23 10:33 [facility] (Rec: 09/22/23 12:32 [facility] [id number]) Trunk Strength Trunk Manual Muscle Testing Flexion 3+ Fair+ Extension 3+ Fair+ Hip Strength Hip Manual Muscle Testing prabha Flexion (L2) 3+ Fair+ Extension (S1) 3- Fair- Abduction 3+ Fair+ Knee Strength Knee Manual Muscle Testing Right Flexion (S2) 4 Good Extension (L3) 3- Fair- Left Flexion (S2) 4+ Good+ Extension (L3) 4+ Good+ Ankle/Foot Strength Ankle and Foot Manual Muscle Testing Right Dorsiflexion (L4) 4 Good Plantarflexion (S1) 4 Good Left Dorsiflexion (L4) 5 Normal Plantarflexion (S1) 5 Normal PT-OP-Q Treatments Start: 09/21/23 16:22 Freq: Status: Active Protocol: Document 10/07/23 12:54 AB (Rec: 10/07/23 13:47 AB [id number]) Gym Equipment Shuttle Balance Feet on 4's stagger stance Details CGA to minimal assist, with head turns and visual scanning Reps/Duration 2 min Therapeutic Exercises Sitting Exercises seated hip abduction Side bilateral Resistance light green band level 3 band Reps/Minutes one minute hold X1 and 2X 10 without hold Comments verbal cues Standing Exercises sit to stand with band Side bilateral Equipment Used [place] green band Reps/Minutes 2X10 bilateral heel raise Reps/Minutes X12 X 2 single leg Heel raise Reps/Minutes X2 Comments unable Neuro Re-Education Treatment Balance Activities marching on blue cushion Reps/Duration X16 hurdles Equipment 10 ft X 2 [place] Details with UE support first set then with hands above bars Reps/Duration 10 ft left and right X 4 Comments CGA to minimal assist. tandem stepping Reps/Duration 10ft X4 10 feet X 2 retro Comments CGA verbal cues for hands above bars step touch Details CGA Equipment 8 step Reps/Duration X12 PT-OP-R Modalities Start: 09/21/23 16:22 Freq: Status: Active Protocol: Document 09/22/23 10:33 SAK (Rec: 09/22/23 12:32 SAK [id number]) Hot Pack/Cold Pack Treatment Cold Pack Location lumbar spine Patient Position Sitting PT-OP-T Assessment and Plan Start: 09/21/23 16:22 Freq: Status: Active Protocol: Document 10/07/23 12:54 AB (Rec: 10/07/23 13:47 AB [id number]) Physical Therapy Assessment Goals Four Impairment gait dysfunction Impairment requires the use of a straight cane or walker for safe mobility Custodial Goal (LTG) Patient will be able to safely ambulate without an assistive device on level surfaces and with straight cane with outdoor, uneven ground and be able to ascend and descend stairs with step-over step pattern LTG Duration 12/22/23 Three Impairment weakness Impairment LE weakness including lack of full right knee extension Short Term Goal (STG) Review current HEP and progress as appropriate for LE strengthening, especially focused on terminal knee extension righ STG Duration 11/07/23 Expeller Worker Goal (LTG) Patient to be independent and compliant with HEP and demonstrate 5/5 prabha LE strength to facilitate return to prior level of activity and safety with mobility LTG Duration 12/22/23 Two Impairment Activities in confidence balance scale Impairment 46 indicating low confidence in mobility Short Term Goal (STG) Improve ABC score to at least 60% STG Duration 11/07/23 Expeller Worker Goal (LTG) Improve ABC score to at least 75% as measure of improved confidence in mobility in her home and the community LTG Duration 12/22/23 One Impairment Belcher Balance score Impairment 37/52 indicating moderate fall risk Short Term Goal (STG) Improve Belcher balance score to at least 44/52 STG Duration 11/07/23 Custodial Goal (LTG) Improve Belcher balance score to at least 50/52 to reduce fall risk to low to allow patient to return to prior level of function safely LTG Duration 12/22/23 Assessment Summary Assessment SLS right LE continues to be one second, 2-3 left LE without UE use end of session. Jazlyn reports having no pain end of session. Patient has been advised to use SPC at all times. Requires incresaed verbal cues to step over hurdles. Physical Therapy Plan Frequency and Duration Frequency of Treatment 2x/Week Duration of treatment (weeks) 12 Plan of Care Start Date 09/22/23 Plan of Care End Date 12/22/23 Next Visit Focus/Plan Next Note Type Treatment Note Next Visit Plan Check added more appts. Assess response to added resistance to HEP review. Next tx: continue resistance, ed TA incorporation with mobility. Trial hurdles, gait without AD and uneven surfaces progress goal. Progress strengthening, balance, and gait activities.
--- NOTE | 2023-10-12 10:30 | PT.OTN ---
Current Diagnoses Spinal stenosis, lumbar region with neurogenic claudication (10/12/23) Other specified disorders of bone density and structure, unspecified site (10/12/23) Wedge compression fracture of fourth lumbar vertebra, initial encounter for closed fracture (10/12/23) Physical Therapy Treatment Note PT-OP-A Visit Information Start: 09/21/23 16:22 Freq: Status: Active Protocol: Document 10/12/23 09:58 SP (Rec: 10/12/23 10:38 SP [id number]) Out-Patient Physical Therapy Visit Information Visit Information Visit Type Treatment Note Visit Start Time 09:50 Visit Stop Time 10:30 Visit Number 40 Number of CHIEF OF [employer]ODUCTION Visits 4 Evaluation Information Evaluation Date 09/22/23 Precautions Precautions High fear of falling, history L1 compression fracture PT-OP-B Current Condition Start: 09/21/23 16:22 Freq: Status: Active Protocol: Document 09/29/23 08:59 SAK (Rec: 09/29/23 09:46 SAK [id number]) Current Condition History of Current Condition Onset Date 04/20/24 Current Complaints weakness, back pain History of Current Condition compression fracture L1 when fell backward onto gravel going up stairs. Couldn't get up by herself. Son assisted her up and to her house. She just thought she bruised her back, couldn't get into see her primary physician. Went to walk in clinic. Diagnosed with L1 compression fracture. Referred to see Dr. Fair; had second x-ray at [facility]. Told to go home and take it easy and come back in 6 weeks. Fell again going into bank, couldn't feel right knee. Then stayed at home per doctor's recommendation and layed around, using a walker. Then went to [facility] due to hematuria, diagnosed with hemmorrhoid. Fell again stepping into shower wearing socks, then started taking sponge baths. Then didn't trust herself to do anything, fell again not being able to feel her knees and just dropped. Finally diagnosed with UTI, in hospital x 4 days . Feels she has lost a lot of strength. Practicing steps at hospital, fell as she started to descend due to losing balance. Then transferred to care facility in wheelchair or bed most of the time except with PT, states got weaker. Fell at care center as well due to unlocked chair. Had Home Health PT At this time back pain minimal, c/o weakness and fear of falling. Has been doing Home Health, now discharged. C/o weakness right greater than left. Prior Treatments and Tests x-ray: L1 compression fracture MRI: L3-L4: The disc height and disk signal are relatively well-preserved. Mild to moderate disc bulge is seen, with a central disc protrusion. At least moderate facet hypertrophy is seen. Associated hypertrophy of the ligamentum flavum can be seen. Fluid is seen within the facet joints themselves. There is moderate to severe bilateral neural foraminal narrowing seen, with an associated a degree of compression seen upon the exiting nerve roots. At least moderate central canal narrowing is seen. L4-L5: The disc height and disk signal are relatively well-preserved. Mild generalized disc bulge is seen. Moderate facet joint hypertrophy is seen. There is mild-to- moderate right-sided and no left-sided neural foraminal narrowing. No central canal narrowing is seen. L5-S1: At least moderate loss of disc height is seen. Mild to moderate disc bulge is seen, which is eccentric to the left. Mild to moderate facet hypertrophy is seen. No significant neural foraminal or central canal narrowing can be seen. 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 PT-OP-C Subjective Start: 09/21/23 16:22 Freq: Status: Active Protocol: Document 10/12/23 09:58 SP (Rec: 10/12/23 10:38 SP [id number]) OP-PT Subjective Patient Comments Patient Comments Pt reports doing ok after PT. She stated busier picking up grand daughter after school so needing earlier appts. PT-OP-D Balance Start: 09/21/23 16:22 Freq: Status: Active Protocol: Document 09/22/23 10:33 SAK (Rec: 09/22/23 12:32 SAK [id number]) OP-PT Balance Assessment Sitting Balance Static Sitting Balance Ability Normal Dynamic Sitting Balance Ability Normal Balance Tests Belcher Balance Test Belcher Balance Test Score 38 Belcher Balance Assessment Evaluation Sitting to Standing Ability Independent w/out Hands Unsupported Stance Safely- 2 minutes Sitting Unsupported, Feet on Floor Safely- 2 minutes Standing to Sitting Ability Assist, Control w/Hands Transfer Ability Safely, Hand Use Unsupported Stance- Eyes Closed Supervision, 10 seconds Unsupported Stance- Eyes Open Supervision to maintain Reaching Forward Standing Safely, 5 inches Pick- Up Object From Floor Supervision Look Behind Shoulder - Standing Shifts Weight Well Turning 360 Degrees Supervision/Verbal Cues Unsupported Stance, Alternating Feet on 4 Steps w/Supervision Stair Unsupported Tandem Stance Balance Lost- Step/Stand Unilateral Leg Stance Unable,assist to not fall Total Score Belcher Total Score (out of 56 points) 37 Tinetti Balance Assessment Sitting Balance Sitting Balance Steady, safe Scoring and Interpretation Tinetti Composite Score (points) 1 Squires Fall Scale Copyright Permission PT-OP-E Functional Tests Start: 09/21/23 16:22 Freq: Status: Active Protocol: Document 09/22/23 10:33 [facility] (Rec: 09/22/23 12:32 [facility] [id number]) Functional Tests 2 Minute Walk Test Distance 75 Five Times Sit to Stand Test Score 21 Comments UE use PT-OP-F Manual Assessment Start: 09/21/23 16:22 Freq: Status: Active Protocol: Document 09/22/23 10:33 SAK (Rec: 09/22/23 12:32 [facility] [id number]) Manual Assessments Soft Tissue Assessment Soft Tissue Mobility Assessment TTP lumbar spine with inc soft tissue tightness PT-OP-G Mobility & Gait Start: 09/21/23 16:22 Freq: Status: Active Protocol: Document 09/22/23 10:33 SAK (Rec: 09/22/23 12:32 [facility] [id number]) OP Gait Assessment Gait Gait Assistance Required: Independent Assistive Devices Assistive Device Straight Cane,4 Wheeled Walker Gait Deviations General Gait Pattern Decreased Stride Length, Decreased Feet Clearance Factors Limiting Gait Function Factors Limiting Gait Function Decreased Activity Tolerance, Decreased Strength Stair Climbing Evaluation Evaluation Level of Assist On Stairs Standby Assistance Devices Stair Climbing Assistive Devices Straight Cane,Left Railing Technique/Endurance Stair Climbing Direction Ascend and Descend Stair Climbing Technique Step to Step PT-OP-J Posture/Palpation/Skin Start: 09/21/23 16:22 Freq: Status: Active Protocol: Document 09/22/23 10:33 SAK (Rec: 09/22/23 12:32 [facility] [id number]) Posture Evaluation Position Standing Evaluation View Lateral Head/C-Spine Posture Forward Head T-Spine Posture Increased Kyphosis L-Spine Posture Flattened PT-OP-K Range of Motion Start: 09/21/23 16:22 Freq: Status: Active Protocol: Document 09/22/23 10:33 SAK (Rec: 09/22/23 12:32 SAK [id number]) Lumbar Spine Range of Motion Lumbar Spine Active Flexion 20 Hip Goniometric Range of Motion Hip prabha Hip ROM WFL No Knee Goniometric Range of Motion Knee prabha Knee ROM WFL Yes Comments except lacking terminal extension right knee -8 Knee ROM Limitations Knee ROM Limitations Muscle Weakness Ankle and Foot Goniometric Range of Motion Ankle and Foot prabha Ankle/Foot ROM WFL Yes PT-OP-M Strength Start: 09/21/23 16:22 Freq: Status: Active Protocol: Document 09/22/23 10:33 SAK (Rec: 09/22/23 12:32 SAK [id number]) Trunk Strength Trunk Manual Muscle Testing Flexion 3+ Fair+ Extension 3+ Fair+ Hip Strength Hip Manual Muscle Testing prabha Flexion (L2) 3+ Fair+ Extension (S1) 3- Fair- Abduction 3+ Fair+ Knee Strength Knee Manual Muscle Testing Right Flexion (S2) 4 Good Extension (L3) 3- Fair- Left Flexion (S2) 4+ Good+ Extension (L3) 4+ Good+ Ankle/Foot Strength Ankle and Foot Manual Muscle Testing Right Dorsiflexion (L4) 4 Good Plantarflexion (S1) 4 Good Left Dorsiflexion (L4) 5 Normal Plantarflexion (S1) 5 Normal PT-OP-Q Treatments Start: 09/21/23 16:22 Freq: Status: Active Protocol: Document 10/12/23 09:58 SP (Rec: 10/12/23 10:38 SP [id number]) Gym Equipment Shuttle Recovery Unilateral Squats Details prabha, cued slower ecc direction , not lock knee ext Resistance 37#>50 # (1 navy 1 teal) Shuttle Recovery Platform Stable Reps/Time 15x2 L; 12, 10 reps max on R Bilateral Squats Details cued not lock into ext, // BLEs Resistance 75# (2 teal/1 navy>3 navy) Shuttle Recovery Platform Stable Reps/Time x15 reps each resistance Therapeutic Exercises Sitting Exercises seated hip abduction Sitting Exercise Name DC easy reported Standing Exercises sit to stand with band Side bilateral Equipment Used [place] band Reps/Minutes 2X10 Comments 1 had support hip abd Standing Exercise Name added to HEP- declined HO has from past will add TB Side bilateral Resistance TB #3 at shins Equipment Used rail support Reps/Minutes 3x15 Comments tiring pnfree Other Exercises resisted side stepping Other Exercise Name trialed inPT only Side bilateral Resistance TB #3 shins Equipment Used rail Reps/Minutes 10ft x2 laps Comments R hip weakness, ed TA & posture for decreased Neuro Re-Education Treatment Balance Activities corner balance Details Home HEP reviewed with added uneven in PT only Surface foam Equipment corner back, chair front Comments NBOS foam, HTs EC 22 sec stagger stance foam HTs EO tandem floor- HTs, ( intermitttent contact chair) PT-OP-R Modalities Start: 09/21/23 16:22 Freq: Status: Active Protocol: Document 09/22/23 10:33 SAK (Rec: 09/22/23 12:32 SAK [id number]) Hot Pack/Cold Pack Treatment Cold Pack Location lumbar spine Patient Position Sitting PT-OP-T Assessment and Plan Start: 09/21/23 16:22 Freq: Status: Active Protocol: Document 10/12/23 09:58 SP (Rec: 10/12/23 10:38 SP [id number]) Physical Therapy Assessment Goals Four Impairment gait dysfunction Impairment requires the use of a straight cane or walker for safe mobility Correction Goal (LTG) Patient will be able to safely ambulate without an assistive device on level surfaces and with straight cane with outdoor, uneven ground and be able to ascend and descend stairs with step-over step pattern LTG Duration 12/22/23 Three Impairment weakness Impairment LE weakness including lack of full right knee extension Short Term Goal (STG) Review current HEP and progress as appropriate for LE strengthening, especially focused on terminal knee extension righ STG Duration 11/07/23 Correction Goal (LTG) Patient to be independent and compliant with HEP and demonstrate 5/5 prabha LE strength to facilitate return to prior level of activity and safety with mobility LTG Duration 12/22/23 Two Impairment Activities in confidence balance scale Impairment 46 indicating low confidence in mobility Short Term Goal (STG) Improve ABC score to at least 60% STG Duration 11/07/23 Retail Sales Representative Goal (LTG) Improve ABC score to at least 75% as measure of improved confidence in mobility in her home and the community LTG Duration 12/22/23 One Impairment Belcher Balance score Impairment 37/52 indicating moderate fall risk Short Term Goal (STG) Improve Belcher balance score to at least 44/52 STG Duration 11/07/23 Retail Sales Representative Goal (LTG) Improve Belcher balance score to at least 50/52 to reduce fall risk to low to allow patient to return to prior level of function safely LTG Duration 12/22/23 Assessment Summary Assessment Pt reported good tiring effort with added TB to standing past HEP hip abd review. Decreased RLE STS time during LLE eccentric control resisted side step in PT and R LB discomfort, little improvement with TA cues. Increased challenge balance in PT use uneven surface with good tolerance and confidence with nearby assurance. Pt would benefit from condence check of HEP. Physical Therapy Plan Frequency and Duration Frequency of Treatment 2x/Week Duration of treatment (weeks) 12 Plan of Care Start Date 09/22/23 Plan of Care End Date 12/22/23 Therapeutic Interventions Therapeutic Interventions Balance Training,Gait Training ,Home Exercise Program,Manual Therapy,Patient/Caregiver Education,Self-Care/Home Management,Soft Tissue Mobilization,Taping, Therapeutic Activities, Therapeutic Exercises Modalities Cold Pack/Ice Massage,Electric Stimulation,Hot Packs, Ultrasound Next Visit Focus/Plan Next Note Type Treatment Note Next Visit Plan Check added more appts. Assess response to added resistance to HEP review and condense HEP for most beneficial at this point, hope brought HOs, CHIEF OF [employer]ODUCTION left message. Next tx: continue resistance, ed TA incorporation with mobility. Trial hurdles, gait without AD and uneven surfaces progress goal. Progress strengthening, balance, and gait activities.
--- NOTE | 2023-10-14 10:31 | PT.OTN ---
Current Diagnoses Spinal stenosis, lumbar region with neurogenic claudication (10/14/23) Other specified disorders of bone density and structure, unspecified site (10/14/23) Wedge compression fracture of fourth lumbar vertebra, initial encounter for closed fracture (10/14/23) Physical Therapy Treatment Note PT-OP-A Visit Information Start: 09/21/23 16:22 Freq: Status: Active Protocol: Document 10/14/23 09:49 SAK (Rec: 10/14/23 10:30 SAK [id number]) Out-Patient Physical Therapy Visit Information Visit Information Visit Type Treatment Note Visit Start Time 09:50 Visit Stop Time 10:30 Visit Number 40 Number of KAIAKO KOHANGA REO Visits 0 Evaluation Information Evaluation Date 09/22/23 Precautions Precautions High fear of falling, history L1 compression fracture PT-OP-B Current Condition Start: 09/21/23 16:22 Freq: Status: Active Protocol: Document 09/29/23 08:59 SAK (Rec: 09/29/23 09:46 SAK [id number]) Current Condition History of Current Condition Onset Date 04/20/24 Current Complaints weakness, back pain History of Current Condition compression fracture L1 when fell backward onto gravel going up stairs. Couldn't get up by herself. Son assisted her up and to her house. She just thought she bruised her back, couldn't get into see her primary physician. Went to walk in clinic. Diagnosed with L1 compression fracture. Referred to see Dr. Fair; had second x-ray at [facility]. Told to go home and take it easy and come back in 6 weeks. Fell again going into bank, couldn't feel right knee. Then stayed at home per doctor's recommendation and layed around, using a walker. Then went to [facility] due to hematuria, diagnosed with hemmorrhoid. Fell again stepping into shower wearing socks, then started taking sponge baths. Then didn't trust herself to do anything, fell again not being able to feel her knees and just dropped. Finally diagnosed with UTI, in hospital x 4 days . Feels she has lost a lot of strength. Practicing steps at hospital, fell as she started to descend due to losing balance. Then transferred to care facility in wheelchair or bed most of the time except with PT, states got weaker. Fell at care center as well due to unlocked chair. Had Home Health PT At this time back pain minimal, c/o weakness and fear of falling. Has been doing Home Health, now discharged. C/o weakness right greater than left. Prior Treatments and Tests x-ray: L1 compression fracture MRI: L3-L4: The disc height and disk signal are relatively well-preserved. Mild to moderate disc bulge is seen, with a central disc protrusion. At least moderate facet hypertrophy is seen. Associated hypertrophy of the ligamentum flavum can be seen. Fluid is seen within the facet joints themselves. There is moderate to severe bilateral neural foraminal narrowing seen, with an associated a degree of compression seen upon the exiting nerve roots. At least moderate central canal narrowing is seen. L4-L5: The disc height and disk signal are relatively well-preserved. Mild generalized disc bulge is seen. Moderate facet joint hypertrophy is seen. There is mild-to- moderate right-sided and no left-sided neural foraminal narrowing. No central canal narrowing is seen. L5-S1: At least moderate loss of disc height is seen. Mild to moderate disc bulge is seen, which is eccentric to the left. Mild to moderate facet hypertrophy is seen. No significant neural foraminal or central canal narrowing can be seen. 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 PT-OP-C Subjective Start: 09/21/23 16:22 Freq: Status: Active Protocol: Document 10/14/23 09:49 [facility] (Rec: 10/14/23 10:30 [facility] [id number]) OP-PT Subjective Patient Comments Patient Comments States she is out and about more. Still has to be very careful with walking. PT-OP-D Balance Start: 09/21/23 16:22 Freq: Status: Active Protocol: Document 09/22/23 10:33 [facility] (Rec: 09/22/23 12:32 [facility] [id number]) OP-PT Balance Assessment Sitting Balance Static Sitting Balance Ability Normal Dynamic Sitting Balance Ability Normal Balance Tests Belcher Balance Test Belcher Balance Test Score 38 Belcher Balance Assessment Evaluation Sitting to Standing Ability Independent w/out Hands Unsupported Stance Safely- 2 minutes Sitting Unsupported, Feet on Floor Safely- 2 minutes Standing to Sitting Ability Assist, Control w/Hands Transfer Ability Safely, Hand Use Unsupported Stance- Eyes Closed Supervision, 10 seconds Unsupported Stance- Eyes Open Supervision to maintain Reaching Forward Standing Safely, 5 inches Pick- Up Object From Floor Supervision Look Behind Shoulder - Standing Shifts Weight Well Turning 360 Degrees Supervision/Verbal Cues Unsupported Stance, Alternating Feet on 4 Steps w/Supervision Stair Unsupported Tandem Stance Balance Lost- Step/Stand Unilateral Leg Stance Unable,assist to not fall Total Score Belcher Total Score (out of 56 points) 37 Tinetti Balance Assessment Sitting Balance Sitting Balance Steady, safe Scoring and Interpretation Tinetti Composite Score (points) 1 Squires Fall Scale Copyright Permission PT-OP-E Functional Tests Start: 09/21/23 16:22 Freq: Status: Active Protocol: Document 09/22/23 10:33 [facility] (Rec: 09/22/23 12:32 [facility] [id number]) Functional Tests 2 Minute Walk Test Distance 75 Five Times Sit to Stand Test Score 21 Comments UE use PT-OP-F Manual Assessment Start: 09/21/23 16:22 Freq: Status: Active Protocol: Document 09/22/23 10:33 [facility]AK (Rec: 09/22/23 12:32 [facility] [id number]) Manual Assessments Soft Tissue Assessment Soft Tissue Mobility Assessment TTP lumbar spine with inc soft tissue tightness PT-OP-G Mobility & Gait Start: 09/21/23 16:22 Freq: Status: Active Protocol: Document 09/22/23 10:33 SAK (Rec: 09/22/23 12:32 [facility] [id number]) OP Gait Assessment Gait Gait Assistance Required: Independent Assistive Devices Assistive Device Straight Cane,4 Wheeled Walker Gait Deviations General Gait Pattern Decreased Stride Length, Decreased Feet Clearance Factors Limiting Gait Function Factors Limiting Gait Function Decreased Activity Tolerance, Decreased Strength Stair Climbing Evaluation Evaluation Level of Assist On Stairs Standby Assistance Devices Stair Climbing Assistive Devices Straight Cane,Left Railing Technique/Endurance Stair Climbing Direction Ascend and Descend Stair Climbing Technique Step to Step PT-OP-J Posture/Palpation/Skin Start: 09/21/23 16:22 Freq: Status: Active Protocol: Document 09/22/23 10:33 [facility]AK (Rec: 09/22/23 12:32 [facility] [id number]) Posture Evaluation Position Standing Evaluation View Lateral Head/C-Spine Posture Forward Head T-Spine Posture Increased Kyphosis L-Spine Posture Flattened PT-OP-K Range of Motion Start: 09/21/23 16:22 Freq: Status: Active Protocol: Document 09/22/23 10:33 [facility] (Rec: 09/22/23 12:32 [facility] [id number]) Lumbar Spine Range of Motion Lumbar Spine Active Flexion 20 Hip Goniometric Range of Motion Hip prabha Hip ROM WFL No Knee Goniometric Range of Motion Knee prabha Knee ROM WFL Yes Comments except lacking terminal extension right knee -8 Knee ROM Limitations Knee ROM Limitations Muscle Weakness Ankle and Foot Goniometric Range of Motion Ankle and Foot prabha Ankle/Foot ROM WFL Yes PT-OP-M Strength Start: 09/21/23 16:22 Freq: Status: Active Protocol: Document 09/22/23 10:33 [facility] (Rec: 09/22/23 12:32 [facility] [id number]) Trunk Strength Trunk Manual Muscle Testing Flexion 3+ Fair+ Extension 3+ Fair+ Hip Strength Hip Manual Muscle Testing prabha Flexion (L2) 3+ Fair+ Extension (S1) 3- Fair- Abduction 3+ Fair+ Knee Strength Knee Manual Muscle Testing Right Flexion (S2) 4 Good Extension (L3) 3- Fair- Left Flexion (S2) 4+ Good+ Extension (L3) 4+ Good+ Ankle/Foot Strength Ankle and Foot Manual Muscle Testing Right Dorsiflexion (L4) 4 Good Plantarflexion (S1) 4 Good Left Dorsiflexion (L4) 5 Normal Plantarflexion (S1) 5 Normal PT-OP-Q Treatments Start: 09/21/23 16:22 Freq: Status: Active Protocol: Document 10/14/23 09:49 [facility] (Rec: 10/14/23 10:30 [facility] [id number]) Cardio Equipment Recumbent Stepper (Sci-Fit) Duration (Minutes) 12 Resistance 3 Seat Position 11 Other LEs only 59-60 RPMs Gym Equipment Shuttle Recovery Unilateral Squats Details prabha, cued slower ecc direction , not lock knee ext Resistance 50# (1 navy, 1 teal) Shuttle Recovery Platform Stable Reps/Time 10x2 Bilateral Squats Details cued not lock into ext, // BLEs Resistance 75# (1 teal, 2 navy) Shuttle Recovery Platform Stable Reps/Time 10x2 Gait Training Gait Activity stairs Device Used cane and railing Level of Assistance CGA, cues Surface 4 stairs x12 Distance/Duration 2x Neuro Re-Education Treatment Balance Activities corner balance Details Home HEP reviewed with added uneven in PT only Surface foam Equipment corner back, chair front Comments NBOS foam, HTs EC 22 sec stagger stance foam HTs EO tandem floor- HTs, ( intermitttent contact chair) obstacle course Details hurdles, blue black and green foam 4 and 6 box Equipment SPC, gait belt Reps/Duration 6x through Comments CG to min assist balance PT-OP-R Modalities Start: 09/21/23 16:22 Freq: Status: Active Protocol: Document 09/22/23 10:33 [facility] (Rec: 09/22/23 12:32 [facility] [id number]) Hot Pack/Cold Pack Treatment Cold Pack Location lumbar spine Patient Position Sitting PT-OP-T Assessment and Plan Start: 09/21/23 16:22 Freq: Status: Active Protocol: Document 10/14/23 09:49 [facility] (Rec: 10/14/23 10:30 [facility] [id number]) Physical Therapy Assessment Goals Four Impairment gait dysfunction Impairment requires the use of a straight cane or walker for safe mobility Design Assembler Goal (LTG) Patient will be able to safely ambulate without an assistive device on level surfaces and with straight cane with outdoor, uneven ground and be able to ascend and descend stairs with step-over step pattern LTG Duration 12/22/23 Three Impairment weakness Impairment LE weakness including lack of full right knee extension Short Term Goal (STG) Review current HEP and progress as appropriate for LE strengthening, especially focused on terminal knee extension righ STG Duration 11/07/23 Alf Goal (LTG) Patient to be independent and compliant with HEP and demonstrate 5/5 prabha LE strength to facilitate return to prior level of activity and safety with mobility LTG Duration 12/22/23 Two Impairment Activities in confidence balance scale Impairment 46 indicating low confidence in mobility Short Term Goal (STG) Improve ABC score to at least 60% STG Duration 11/07/23 Design Assembler Goal (LTG) Improve ABC score to at least 75% as measure of improved confidence in mobility in her home and the community LTG Duration 12/22/23 One Impairment Belcher Balance score Impairment 37/52 indicating moderate fall risk Short Term Goal (STG) Improve Belcher balance score to at least 44/52 STG Duration 11/07/23 Alf Goal (LTG) Improve Belcher balance score to at least 50/52 to reduce fall risk to low to allow patient to return to prior level of function safely LTG Duration 7/9/24 Assessment Summary Assessment Patient gait, functional strength and balance improving , cues to slow down over hurdles both feet in between for better safety. Patient fearful but willing to do obstacle course, requ CG to min assist Physical Therapy Plan Frequency and Duration Frequency of Treatment 2x/Week Duration of treatment (weeks) 12 Plan of Care Start Date 09/22/23 Plan of Care End Date 12/22/23 Therapeutic Interventions Therapeutic Interventions Balance Training,Gait Training ,Home Exercise Program,Manual Therapy,Patient/Caregiver Education,Self-Care/Home Management,Soft Tissue Mobilization,Taping, Therapeutic Activities, Therapeutic Exercises Modalities Cold Pack/Ice Massage,Electric Stimulation,Hot Packs, Ultrasound
--- NOTE | 2023-10-20 10:38 | PT.OTN ---
Current Diagnoses Spinal stenosis, lumbar region with neurogenic claudication (10/20/23) Other specified disorders of bone density and structure, unspecified site (10/20/23) Wedge compression fracture of fourth lumbar vertebra, initial encounter for closed fracture (10/20/23) Physical Therapy Treatment Note PT-OP-A Visit Information Start: 09/21/23 16:22 Freq: Status: Active Protocol: Document 10/20/23 09:02 [facility] (Rec: 10/20/23 09:45 [facility] [id number]) Out-Patient Physical Therapy Visit Information Visit Information Visit Type Progress Note Visit Start Time 09:05 Visit Stop Time 09:45 Visit Number 9 Number of DATA ENTRY Visits 0 Evaluation Information Evaluation Date 09/22/23 Precautions Precautions High fear of falling, history L1 compression fracture PT-OP-B Current Condition Start: 09/21/23 16:22 Freq: Status: Active Protocol: Document 10/20/23 09:02 [facility] (Rec: 10/20/23 09:45 [facility] [id number]) Current Condition History of Current Condition Onset Date 04/20/24 Current Complaints weakness, back pain History of Current Condition compression fracture L1 when fell backward onto gravel going up stairs. Couldn't get up by herself. Son assisted her up and to her house. She just thought she bruised her back, couldn't get into see her primary physician. Went to walk in clinic. Diagnosed with L1 compression fracture. Referred to see Dr. Fair; had second x-ray at [facility]. Told to go home and take it easy and come back in 6 weeks. Fell again going into bank, couldn't feel right knee. Then stayed at home per doctor's recommendation and layed around, using a walker. Then went to [facility] due to hematuria, diagnosed with hemmorrhoid. Fell again stepping into shower wearing socks, then started taking sponge baths. Then didn't trust herself to do anything, fell again not being able to feel her knees and just dropped. Finally diagnosed with UTI, in hospital x 4 days . Feels she has lost a lot of strength. Practicing steps at hospital, fell as she started to descend due to losing balance. Then transferred to care facility in wheelchair or bed most of the time except with PT, states got weaker. Fell at care center as well due to unlocked chair. Had Home Health PT At this time back pain minimal, c/o weakness and fear of falling. Has been doing Home Health, now discharged. C/o weakness right greater than left. Prior Treatments and Tests x-ray: L1 compression fracture MRI: L3-L4: The disc height and disk signal are relatively well-preserved. Mild to moderate disc bulge is seen, with a central disc protrusion. At least moderate facet hypertrophy is seen. Associated hypertrophy of the ligamentum flavum can be seen. Fluid is seen within the facet joints themselves. There is moderate to severe bilateral neural foraminal narrowing seen, with an associated a degree of compression seen upon the exiting nerve roots. At least moderate central canal narrowing is seen. L4-L5: The disc height and disk signal are relatively well-preserved. Mild generalized disc bulge is seen. Moderate facet joint hypertrophy is seen. There is mild-to- moderate right-sided and no left-sided neural foraminal narrowing. No central canal narrowing is seen. L5-S1: At least moderate loss of disc height is seen. Mild to moderate disc bulge is seen, which is eccentric to the left. Mild to moderate facet hypertrophy is seen. No significant neural foraminal or central canal narrowing can be seen. PT-OP-C Subjective Start: 09/21/23 16:22 Freq: Status: Active Protocol: Document 10/20/23 09:02 [facility] (Rec: 10/20/23 09:45 [facility] [id number]) OP-PT Subjective Patient Comments Patient Comments No new c/o, exercising more but not going many places. Used to go to local beach. PT-OP-D Balance Start: 09/21/23 16:22 Freq: Status: Active Protocol: Document 09/22/23 10:33 [facility] (Rec: 09/22/23 12:32 [facility] [id number]) OP-PT Balance Assessment Sitting Balance Static Sitting Balance Ability Normal Dynamic Sitting Balance Ability Normal Balance Tests Belcher Balance Test Belcher Balance Test Score 38 Belcher Balance Assessment Evaluation Sitting to Standing Ability Independent w/out Hands Unsupported Stance Safely- 2 minutes Sitting Unsupported, Feet on Floor Safely- 2 minutes Standing to Sitting Ability Assist, Control w/Hands Transfer Ability Safely, Hand Use Unsupported Stance- Eyes Closed Supervision, 10 seconds Unsupported Stance- Eyes Open Supervision to maintain Reaching Forward Standing Safely, 5 inches Pick- Up Object From Floor Supervision Look Behind Shoulder - Standing Shifts Weight Well Turning 360 Degrees Supervision/Verbal Cues Unsupported Stance, Alternating Feet on 4 Steps w/Supervision Stair Unsupported Tandem Stance Balance Lost- Step/Stand Unilateral Leg Stance Unable,assist to not fall Total Score Belcher Total Score (out of 56 points) 37 Tinetti Balance Assessment Sitting Balance Sitting Balance Steady, safe Scoring and Interpretation Tinetti Composite Score (points) 1 Squires Fall Scale Copyright Permission PT-OP-E Functional Tests Start: 09/21/23 16:22 Freq: Status: Active Protocol: Document 09/22/23 10:33 [facility] (Rec: 09/22/23 12:32 [facility] [id number]) Functional Tests 2 Minute Walk Test Distance 75 Five Times Sit to Stand Test Score 21 Comments UE use PT-OP-F Manual Assessment Start: 09/21/23 16:22 Freq: Status: Active Protocol: Document 09/22/23 10:33 [facility] (Rec: 09/22/23 12:32 [facility] [id number]) Manual Assessments Soft Tissue Assessment Soft Tissue Mobility Assessment TTP lumbar spine with inc soft tissue tightness PT-OP-G Mobility & Gait Start: 09/21/23 16:22 Freq: Status: Active Protocol: Document 09/22/23 10:33 [facility] (Rec: 09/22/23 12:32 [facility] [id number]) OP Gait Assessment Gait Gait Assistance Required: Independent Assistive Devices Assistive Device Straight Cane,4 Wheeled Walker Gait Deviations General Gait Pattern Decreased Stride Length, Decreased Feet Clearance Factors Limiting Gait Function Factors Limiting Gait Function Decreased Activity Tolerance, Decreased Strength Stair Climbing Evaluation Evaluation Level of Assist On Stairs Standby Assistance Devices Stair Climbing Assistive Devices Straight Cane,Left Railing Technique/Endurance Stair Climbing Direction Ascend and Descend Stair Climbing Technique Step to Step PT-OP-J Posture/Palpation/Skin Start: 09/21/23 16:22 Freq: Status: Active Protocol: Document 09/22/23 10:33 [facility] (Rec: 09/22/23 12:32 [facility] [id number]) Posture Evaluation Position Standing Evaluation View Lateral Head/C-Spine Posture Forward Head T-Spine Posture Increased Kyphosis L-Spine Posture Flattened PT-OP-K Range of Motion Start: 09/21/23 16:22 Freq: Status: Active Protocol: Document 09/22/23 10:33 [facility] (Rec: 09/22/23 12:32 [facility] [id number]) Lumbar Spine Range of Motion Lumbar Spine Active Flexion 20 Hip Goniometric Range of Motion Hip prabha Hip ROM WFL No Knee Goniometric Range of Motion Knee prabha Knee ROM WFL Yes Comments except lacking terminal extension right knee -8 Knee ROM Limitations Knee ROM Limitations Muscle Weakness Ankle and Foot Goniometric Range of Motion Ankle and Foot prabha Ankle/Foot ROM WFL Yes PT-OP-M Strength Start: 09/21/23 16:22 Freq: Status: Active Protocol: Document 09/22/23 10:33 [facility] (Rec: 09/22/23 12:32 [facility] [id number]) Trunk Strength Trunk Manual Muscle Testing Flexion 3+ Fair+ Extension 3+ Fair+ Hip Strength Hip Manual Muscle Testing prabha Flexion (L2) 3+ Fair+ Extension (S1) 3- Fair- Abduction 3+ Fair+ Knee Strength Knee Manual Muscle Testing Right Flexion (S2) 4 Good Extension (L3) 3- Fair- Left Flexion (S2) 4+ Good+ Extension (L3) 4+ Good+ Ankle/Foot Strength Ankle and Foot Manual Muscle Testing Right Dorsiflexion (L4) 4 Good Plantarflexion (S1) 4 Good Left Dorsiflexion (L4) 5 Normal Plantarflexion (S1) 5 Normal PT-OP-Q Treatments Start: 09/21/23 16:22 Freq: Status: Active Protocol: Document 10/20/23 09:02 [facility] (Rec: 10/20/23 09:45 [facility] [id number]) Cardio Equipment Recumbent Stepper (Sci-Fit) Duration (Minutes) 10 Resistance 3 Seat Position 11 Other LEs only 59-60 RPMs Gym Equipment Shuttle Recovery Unilateral Squats Details prabha, cued slower ecc direction , not lock knee ext Resistance 50# (1 navy, 1 teal) Shuttle Recovery Platform Stable Reps/Time 10x2 Bilateral Squats Details cued not lock into ext, // BLEs Resistance 75# (1 teal, 2 navy) Shuttle Recovery Platform Stable Reps/Time 10x2 Gait Training Gait Activity outdoor Device Used SPC Level of Assistance CGA, cues Surface pavement Distance/Duration 7 min Treatment Focus safety Comments level, incline, curb, stairs with railing, no railing Needed mod assist on 2 stairs without railing stairs Device Used cane and railing Level of Assistance CGA, cues Surface 4 stairs x12 Distance/Duration 2x Neuro Re-Education Treatment Balance Activities obstacle course Details hurdles, blue black and green foam 4 and 6 box Equipment SPC, gait belt Reps/Duration 6x through Comments CG to min assist balance PT-OP-R Modalities Start: 09/21/23 16:22 Freq: Status: Active Protocol: Document 09/22/23 10:33 [facility] (Rec: 09/22/23 12:32 [facility] [id number]) Hot Pack/Cold Pack Treatment Cold Pack Location lumbar spine Patient Position Sitting PT-OP-T Assessment and Plan Start: 09/21/23 16:22 Freq: Status: Active Protocol: Document 10/20/23 09:02 [facility] (Rec: 10/20/23 09:45 [facility] [id number]) Physical Therapy Assessment Goals Four Impairment gait dysfunction Impairment requires the use of a straight cane or walker for safe mobility Tile Conduit Layer Goal (LTG) Patient will be able to safely ambulate without an assistive device on level surfaces and with straight cane with outdoor, uneven ground and be able to ascend and descend stairs with step-over step pattern 10/20/23: now ambulating at home without cane, using cane for outdoor and community but hasn 't returned to all prior gait activities especially going to beach to walk due to uneven ground and fear of falling. LTG Duration 12/22/23 Three Impairment weakness Impairment LE weakness including lack of full right knee extension Short Term Goal (STG) Review current HEP and progress as appropriate for LE strengthening, especially focused on terminal knee extension righ 10/20/23: goal achieved STG Duration goal achieved Tile Conduit Layer Goal (LTG) Patient to be independent and compliant with HEP and demonstrate 5/5 prabha LE strength to facilitate return to prior level of activity and safety with mobility LTG Duration 12/22/23 Two Impairment Activities in confidence balance scale Impairment 46 indicating low confidence in mobility Short Term Goal (STG) Improve ABC score to at least 60% 10/20/23: ABC score improved to 52% STG Duration 11/07/23 Intermediate Goal (LTG) Improve ABC score to at least 75% as measure of improved confidence in mobility in her home and the community LTG Duration 12/22/23 One Impairment Belcher Balance score Impairment 37/52 indicating moderate fall risk Short Term Goal (STG) Improve Belcher balance score to at least 44/52 4/7/24: Belcher 41/52 STG Duration 11/07/23 Tile Conduit Layer Goal (LTG) Improve Belcher balance score to at least 50/52 to reduce fall risk to low to allow patient to return to prior level of function safely LTG Duration 12/22/23 Progress Towards Goals Progress Towards Goals Progressing Toward Goals Assessment Summary Assessment Improving confidence and dec need for assist or cues with challenged gait activities. Patient continues to express fear of falling but PT noting improved functional strength and balance. Good goal progress. Physical Therapy Plan Frequency and Duration Frequency of Treatment 2x/Week Duration of treatment (weeks) 12 Plan of Care Start Date 09/22/23 Plan of Care End Date 12/22/23 Therapeutic Interventions Therapeutic Interventions Balance Training,Gait Training ,Home Exercise Program,Manual Therapy,Patient/Caregiver Education,Self-Care/Home Management,Soft Tissue Mobilization,Taping, Therapeutic Activities, Therapeutic Exercises Modalities Cold Pack/Ice Massage,Electric Stimulation,Hot Packs, Ultrasound Next Visit Focus/Plan Next Note Type Treatment Note Next Visit Plan Continue progressive strengthening, gait training, balance training including on stairs.
--- NOTE | 2023-10-23 16:29 | PT.OTN ---
Current Diagnoses Spinal stenosis, lumbar region with neurogenic claudication (10/23/23) Other specified disorders of bone density and structure, unspecified site (10/23/23) Wedge compression fracture of fourth lumbar vertebra, initial encounter for closed fracture (10/23/23) Physical Therapy Treatment Note PT-OP-A Visit Information Start: 09/21/23 16:22 Freq: Status: Active Protocol: Document 10/23/23 15:21 NBM (Rec: 10/23/23 16:28 NBM [id number]) Out-Patient Physical Therapy Visit Information Visit Information Visit Type Treatment Note Visit Start Time 15:23 Visit Stop Time 16:13 Visit Number 10 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 Couldn't get up by herself. Son assisted her up and to her house. She just thought she bruised her back, couldn't get into see her primary physician. Went to walk in clinic. Diagnosed with L1 compression fracture. Referred to see Dr. Fair; had second x-ray at [facility]. Told to go home and take it easy and come back in 6 weeks. Fell again going into bank, couldn't feel right knee. Then stayed at home per doctor's recommendation and layed around, using a walker. Then went to [facility] due to hematuria, diagnosed with hemmorrhoid. Fell again stepping into shower wearing socks, then started taking sponge baths. Then didn't trust herself to do anything, fell again not being able to feel her knees and just dropped. Finally diagnosed with UTI, in hospital x 4 days . Feels she has lost a lot of strength. Practicing steps at hospital, fell as she started to descend due to losing balance. Then transferred to care facility in wheelchair or bed most of the time except with PT, states got weaker. Fell at care center as well due to unlocked chair. Had Home Health PT At this time back pain minimal, c/o weakness and fear of falling. Has been doing Home Health, now discharged. C/o weakness right greater than left. Prior Treatments and Tests x-ray: L1 compression fracture MRI: L3-L4: The disc height and disk signal are relatively well-preserved. Mild to moderate disc bulge is seen, with a central disc protrusion. At least moderate facet hypertrophy is seen. Associated hypertrophy of the ligamentum flavum can be seen. Fluid is seen within the facet joints themselves. There is moderate to severe bilateral neural foraminal narrowing seen, with an associated a degree of compression seen upon the exiting nerve roots. At least moderate central canal narrowing is seen. L4-L5: The disc height and disk signal are relatively well-preserved. Mild generalized disc bulge is seen. Moderate facet joint hypertrophy is seen. There is mild-to- moderate right-sided and no left-sided neural foraminal narrowing. No central canal narrowing is seen. L5-S1: At least moderate loss of disc height is seen. Mild to moderate disc bulge is seen, which is eccentric to the left. Mild to moderate facet hypertrophy is seen. No significant neural foraminal or central canal narrowing can be seen. PT-OP-C Subjective Start: 09/21/23 16:22 Freq: Status: Active Protocol: Document 10/23/23 15:21 NBM (Rec: 10/23/23 16:28 NB [id number]) OP-PT Subjective Patient Comments Patient Comments Jazlyn reports no pain just ache. She did her ex's this morning and rested, and she's walking around a lot around her house without anything. She's steadily getting better. Pt scheduled to see back doctor next Thursday for the first time in months. PT-OP-D Balance Start: 09/21/23 16:22 Freq: Status: Active Protocol: Document 09/22/23 10:33 SAK (Rec: 09/22/23 12:32 SAK [id number]) OP-PT Balance Assessment Sitting Balance Static Sitting Balance Ability Normal Dynamic Sitting Balance Ability Normal Balance Tests Belcher Balance Test Belcher Balance Test Score 38 Belcher Balance Assessment Evaluation Sitting to Standing Ability Independent w/out Hands Unsupported Stance Safely- 2 minutes Sitting Unsupported, Feet on Floor Safely- 2 minutes Standing to Sitting Ability Assist, Control w/Hands Transfer Ability Safely, Hand Use Unsupported Stance- Eyes Closed Supervision, 10 seconds Unsupported Stance- Eyes Open Supervision to maintain Reaching Forward Standing Safely, 5 inches Pick- Up Object From Floor Supervision Look Behind Shoulder - Standing Shifts Weight Well Turning 360 Degrees Supervision/Verbal Cues Unsupported Stance, Alternating Feet on 4 Steps w/Supervision Stair Unsupported Tandem Stance Balance Lost- Step/Stand Unilateral Leg Stance Unable,assist to not fall Total Score Belcher Total Score (out of 56 points) 37 Tinetti Balance Assessment Sitting Balance Sitting Balance Steady, safe Scoring and Interpretation Tinetti Composite Score (points) 1 Squires Fall Scale Copyright Permission PT-OP-E Functional Tests Start: 09/21/23 16:22 Freq: Status: Active Protocol: Document 09/22/23 10:33 [facility] (Rec: 09/22/23 12:32 [facility] [id number]) Functional Tests 2 Minute Walk Test Distance 75 Five Times Sit to Stand Test Score 21 Comments UE use PT-OP-F Manual Assessment Start: 09/21/23 16:22 Freq: Status: Active Protocol: Document 09/22/23 10:33 [facility] (Rec: 09/22/23 12:32 [facility] [id number]) Manual Assessments Soft Tissue Assessment Soft Tissue Mobility Assessment TTP lumbar spine with inc soft tissue tightness PT-OP-G Mobility & Gait Start: 09/21/23 16:22 Freq: Status: Active Protocol: Document 09/22/23 10:33 SAK (Rec: 09/22/23 12:32 [facility] [id number]) OP Gait Assessment Gait Gait Assistance Required: Independent Assistive Devices Assistive Device Straight Cane,4 Wheeled Walker Gait Deviations General Gait Pattern Decreased Stride Length, Decreased Feet Clearance Factors Limiting Gait Function Factors Limiting Gait Function Decreased Activity Tolerance, Decreased Strength Stair Climbing Evaluation Evaluation Level of Assist On Stairs Standby Assistance Devices Stair Climbing Assistive Devices Straight Cane,Left Railing Technique/Endurance Stair Climbing Direction Ascend and Descend Stair Climbing Technique Step to Step PT-OP-J Posture/Palpation/Skin Start: 09/21/23 16:22 Freq: Status: Active Protocol: Document 09/22/23 10:33 SAK (Rec: 09/22/23 12:32 [facility] [id number]) Posture Evaluation Position Standing Evaluation View Lateral Head/C-Spine Posture Forward Head T-Spine Posture Increased Kyphosis L-Spine Posture Flattened PT-OP-K Range of Motion Start: 09/21/23 16:22 Freq: Status: Active Protocol: Document 09/22/23 10:33 SAK (Rec: 09/22/23 12:32 SAK [id number]) Lumbar Spine Range of Motion Lumbar Spine Active Flexion 20 Hip Goniometric Range of Motion Hip prabha Hip ROM WFL No Knee Goniometric Range of Motion Knee prabha Knee ROM WFL Yes Comments except lacking terminal extension right knee -8 Knee ROM Limitations Knee ROM Limitations Muscle Weakness Ankle and Foot Goniometric Range of Motion Ankle and Foot prabha Ankle/Foot ROM WFL Yes PT-OP-M Strength Start: 09/21/23 16:22 Freq: Status: Active Protocol: Document 09/22/23 10:33 [facility] (Rec: 09/22/23 12:32 [facility] [id number]) Trunk Strength Trunk Manual Muscle Testing Flexion 3+ Fair+ Extension 3+ Fair+ Hip Strength Hip Manual Muscle Testing prabha Flexion (L2) 3+ Fair+ Extension (S1) 3- Fair- Abduction 3+ Fair+ Knee Strength Knee Manual Muscle Testing Right Flexion (S2) 4 Good Extension (L3) 3- Fair- Left Flexion (S2) 4+ Good+ Extension (L3) 4+ Good+ Ankle/Foot Strength Ankle and Foot Manual Muscle Testing Right Dorsiflexion (L4) 4 Good Plantarflexion (S1) 4 Good Left Dorsiflexion (L4) 5 Normal Plantarflexion (S1) 5 Normal PT-OP-Q Treatments Start: 09/21/23 16:22 Freq: Status: Active Protocol: Document 10/23/23 15:21 NB (Rec: 10/23/23 16:28 [facility] [id number]) Cardio Equipment Recumbent Elliptical (Biodex) Duration (Minutes) 5 Resistance 3>6 x3 min>3 Seat Position 9 Other UE/LE Gym Equipment Shuttle Recovery Unilateral Squats Details prabha, cued slower ecc direction , increased range w/ tactile cue Resistance 50# (2 navy) Shuttle Recovery Platform Stable Reps/Time L 10x2 R x10, x8 dc'd d/t fatigue Bilateral Squats Details cued not lock into ext, // BLEs Resistance 75# (3 navy) Shuttle Recovery Platform Stable Reps/Time 10x2 Gait Training Gait Activity stairs Device Used cane and railing Level of Assistance CGA, cues Surface 4 stairs x6 Distance/Duration x6 ea asc/desc Treatment Focus safety, SPC sequencing Comments Pt improves consistency w/ SPC sequencing up/down, descent more challenging. Edu for reasoning for SPC on contralateral side. Neuro Re-Education Treatment Balance Activities obstacle course Details hurdles, blue black and green therapads Equipment SPC, gait belt, //bars Reps/Duration 6x through Comments CGA, [employer] prn, cues for distant focal point, upright posture, high knee for increased hip flexion which improves foot clearance w/ repetition. PT-OP-R Modalities Start: 09/21/23 16:22 Freq: Status: Active Protocol: Document 09/22/23 10:33 SAK (Rec: 09/22/23 12:32 SAK [id number]) Hot Pack/Cold Pack Treatment Cold Pack Location lumbar spine Patient Position Sitting PT-OP-T Assessment and Plan Start: 09/21/23 16:22 Freq: Status: Active Protocol: Document 10/23/23 15:21 NBM (Rec: 10/23/23 16:28 NBM [id number]) Physical Therapy Assessment Goals Four Impairment gait dysfunction Impairment requires the use of a straight cane or walker for safe mobility Jail Goal (LTG) Patient will be able to safely ambulate without an assistive device on level surfaces and with straight cane with outdoor, uneven ground and be able to ascend and descend stairs with step-over step pattern 10/20/23: now ambulating at home without cane, using cane for outdoor and community but hasn 't returned to all prior gait activities especially going to beach to walk due to uneven ground and fear of falling. LTG Duration 12/22/23 Three Impairment weakness Impairment LE weakness including lack of full right knee extension Short Term Goal (STG) Review current HEP and progress as appropriate for LE strengthening, especially focused on terminal knee extension righ 10/20/23: goal achieved STG Duration goal achieved Jail Goal (LTG) Patient to be independent and compliant with HEP and demonstrate 5/5 prabha LE strength to facilitate return to prior level of activity and safety with mobility LTG Duration 12/22/23 Two Impairment Activities in confidence balance scale Impairment 46 indicating low confidence in mobility Short Term Goal (STG) Improve ABC score to at least 60% 10/20/23: ABC score improved to 52% STG Duration 11/07/23 Jail Goal (LTG) Improve ABC score to at least 75% as measure of improved confidence in mobility in her home and the community LTG Duration 12/22/23 One Impairment Belcher Balance score Impairment 37/52 indicating moderate fall risk Short Term Goal (STG) Improve Belcher balance score to at least 44/52 09/20/23: Belcher 41/52 STG Duration 11/07/23 Upholstery Tech Goal (LTG) Improve Belcher balance score to at least 50/52 to reduce fall risk to low to allow patient to return to prior level of function safely LTG Duration 12/22/23 Assessment Summary Assessment Pt improves consistency w/ SPC sequencing up/down, descent more challenging. Pt cues for distant focal point, upright posture, high knee for increased hip flexion which improves foot clearance w/ repetition. Pt fatigues on RLE w/ unilateral squats end of session on Shuttle Recovery with bands increased from mixed navy/teal to all navy. Physical Therapy Plan Frequency and Duration Frequency of Treatment 2x/Week Duration of treatment (weeks) 12 Plan of Care Start Date 09/22/23 Plan of Care End Date 12/22/23 Therapeutic Interventions Therapeutic Interventions Balance Training,Gait Training ,Home Exercise Program,Manual Therapy,Patient/Caregiver Education,Self-Care/Home Management,Soft Tissue Mobilization,Taping, Therapeutic Activities, Therapeutic Exercises Modalities Cold Pack/Ice Massage,Electric Stimulation,Hot Packs, Ultrasound Next Visit Focus/Plan Next Note Type Treatment Note Next Visit Plan Continue progressive strengthening, gait training, balance training including on stairs.
--- NOTE | 2023-10-27 14:27 | PT.OTN ---
Current Diagnoses Spinal stenosis, lumbar region with neurogenic claudication (10/27/23) Other specified disorders of bone density and structure, unspecified site (10/27/23) Wedge compression fracture of fourth lumbar vertebra, initial encounter for closed fracture (10/27/23) Physical Therapy Treatment Note PT-OP-A Visit Information Start: 09/21/23 16:22 Freq: Status: Active Protocol: Document 10/27/23 13:49 SP (Rec: 10/27/23 14:33 SP [id number]) Out-Patient Physical Therapy Visit Information Visit Information Visit Type Treatment Note Visit Note 08/22 post PN Visit Start Time 13:49 Visit Stop Time 14:29 Visit Number 11 Number of HAND SLITTER Visits 2 Evaluation Information Evaluation Date 09/22/23 Precautions Precautions High fear of falling, history L1 compression fracture PT-OP-B Current Condition Start: 09/21/23 16:22 Freq: Status: Active Protocol: Document 10/20/23 09:02 SAK (Rec: 10/20/23 09:45 SAK [id number]) Current Condition History of Current Condition Onset Date 04/20/24 Current Complaints weakness, back pain History of Current Condition compression fracture L1 when fell backward onto gravel going up stairs. Couldn't get up by herself. Son assisted her up and to her house. She just thought she bruised her back, couldn't get into see her primary physician. Went to walk in clinic. Diagnosed with L1 compression fracture. Referred to see Dr. Fair; had second x-ray at [facility]. Told to go home and take it easy and come back in 6 weeks. Fell again going into bank, couldn't feel right knee. Then stayed at home per doctor's recommendation and layed around, using a walker. Then went to [facility] due to hematuria, diagnosed with hemmorrhoid. Fell again stepping into shower wearing socks, then started taking sponge baths. Then didn't trust herself to do anything, fell again not being able to feel her knees and just dropped. Finally diagnosed with UTI, in hospital x 4 days . Feels she has lost a lot of strength. Practicing steps at hospital, fell as she started to descend due to losing balance. Then transferred to care facility in wheelchair or bed most of the time except with PT, states got weaker. Fell at care center as well due to unlocked chair. Had Home Health PT At this time back pain minimal, c/o weakness and fear of falling. Has been doing Home Health, now discharged. C/o weakness right greater than left. Prior Treatments and Tests x-ray: L1 compression fracture MRI: L3-L4: The disc height and disk signal are relatively well-preserved. Mild to moderate disc bulge is seen, with a central disc protrusion. At least moderate facet hypertrophy is seen. Associated hypertrophy of the ligamentum flavum can be seen. Fluid is seen within the facet joints themselves. There is moderate to severe bilateral neural foraminal narrowing seen, with an associated a degree of compression seen upon the exiting nerve roots. At least moderate central canal narrowing is seen. L4-L5: The disc height and disk signal are relatively well-preserved. Mild generalized disc bulge is seen. Moderate facet joint hypertrophy is seen. There is mild-to- moderate right-sided and no left-sided neural foraminal narrowing. No central canal narrowing is seen. L5-S1: At least moderate loss of disc height is seen. Mild to moderate disc bulge is seen, which is eccentric to the left. Mild to moderate facet hypertrophy is seen. No significant neural foraminal or central canal narrowing can be seen. PT-OP-C Subjective Start: 09/21/23 16:22 Freq: Status: Active Protocol: Document 10/27/23 13:49 SP (Rec: 10/27/23 14:33 SP [id number]) OP-PT Subjective Patient Comments Patient Comments Pt reports compliant with exercises at home. She states takes her cane out to [employer] functions, [employer], store and driving self. Around house not needing AD cooking/ cleaning/ change bedding. PT-OP-D Balance Start: 09/21/23 16:22 Freq: Status: Active Protocol: Document 09/22/23 10:33 SAK (Rec: 09/22/23 12:32 SAK [id number]) OP-PT Balance Assessment Sitting Balance Static Sitting Balance Ability Normal Dynamic Sitting Balance Ability Normal Balance Tests Belcher Balance Test Belcher Balance Test Score 38 Belcher Balance Assessment Evaluation Sitting to Standing Ability Independent w/out Hands Unsupported Stance Safely- 2 minutes Sitting Unsupported, Feet on Floor Safely- 2 minutes Standing to Sitting Ability Assist, Control w/Hands Transfer Ability Safely, Hand Use Unsupported Stance- Eyes Closed Supervision, 10 seconds Unsupported Stance- Eyes Open Supervision to maintain Reaching Forward Standing Safely, 5 inches Pick- Up Object From Floor Supervision Look Behind Shoulder - Standing Shifts Weight Well Turning 360 Degrees Supervision/Verbal Cues Unsupported Stance, Alternating Feet on 4 Steps w/Supervision Stair Unsupported Tandem Stance Balance Lost- Step/Stand Unilateral Leg Stance Unable,assist to not fall Total Score Belcher Total Score (out of 56 points) 37 Tinetti Balance Assessment Sitting Balance Sitting Balance Steady, safe Scoring and Interpretation Tinetti Composite Score (points) 1 Squires Fall Scale Copyright Permission PT-OP-E Functional Tests Start: 09/21/23 16:22 Freq: Status: Active Protocol: Document 09/22/23 10:33 [facility] (Rec: 09/22/23 12:32 [facility] [id number]) Functional Tests 2 Minute Walk Test Distance 75 Five Times Sit to Stand Test Score 21 Comments UE use PT-OP-F Manual Assessment Start: 09/21/23 16:22 Freq: Status: Active Protocol: Document 09/22/23 10:33 SAK (Rec: 09/22/23 12:32 [facility] [id number]) Manual Assessments Soft Tissue Assessment Soft Tissue Mobility Assessment TTP lumbar spine with inc soft tissue tightness PT-OP-G Mobility & Gait Start: 09/21/23 16:22 Freq: Status: Active Protocol: Document 09/22/23 10:33 SAK (Rec: 09/22/23 12:32 [facility] [id number]) OP Gait Assessment Gait Gait Assistance Required: Independent Assistive Devices Assistive Device Straight Cane,4 Wheeled Walker Gait Deviations General Gait Pattern Decreased Stride Length, Decreased Feet Clearance Factors Limiting Gait Function Factors Limiting Gait Function Decreased Activity Tolerance, Decreased Strength Stair Climbing Evaluation Evaluation Level of Assist On Stairs Standby Assistance Devices Stair Climbing Assistive Devices Straight Cane,Left Railing Technique/Endurance Stair Climbing Direction Ascend and Descend Stair Climbing Technique Step to Step PT-OP-J Posture/Palpation/Skin Start: 09/21/23 16:22 Freq: Status: Active Protocol: Document 09/22/23 10:33 SAK (Rec: 09/22/23 12:32 [facility] [id number]) Posture Evaluation Position Standing Evaluation View Lateral Head/C-Spine Posture Forward Head T-Spine Posture Increased Kyphosis L-Spine Posture Flattened PT-OP-K Range of Motion Start: 09/21/23 16:22 Freq: Status: Active Protocol: Document 09/22/23 10:33 SAK (Rec: 09/22/23 12:32 SAK [id number]) Lumbar Spine Range of Motion Lumbar Spine Active Flexion 20 Hip Goniometric Range of Motion Hip prabha Hip ROM WFL No Knee Goniometric Range of Motion Knee prabha Knee ROM WFL Yes Comments except lacking terminal extension right knee -8 Knee ROM Limitations Knee ROM Limitations Muscle Weakness Ankle and Foot Goniometric Range of Motion Ankle and Foot prabha Ankle/Foot ROM WFL Yes PT-OP-M Strength Start: 09/21/23 16:22 Freq: Status: Active Protocol: Document 09/22/23 10:33 SAK (Rec: 09/22/23 12:32 SAK [id number]) Trunk Strength Trunk Manual Muscle Testing Flexion 3+ Fair+ Extension 3+ Fair+ Hip Strength Hip Manual Muscle Testing prabha Flexion (L2) 3+ Fair+ Extension (S1) 3- Fair- Abduction 3+ Fair+ Knee Strength Knee Manual Muscle Testing Right Flexion (S2) 4 Good Extension (L3) 3- Fair- Left Flexion (S2) 4+ Good+ Extension (L3) 4+ Good+ Ankle/Foot Strength Ankle and Foot Manual Muscle Testing Right Dorsiflexion (L4) 4 Good Plantarflexion (S1) 4 Good Left Dorsiflexion (L4) 5 Normal Plantarflexion (S1) 5 Normal PT-OP-Q Treatments Start: 09/21/23 16:22 Freq: Status: Active Protocol: Document 10/27/23 13:49 SP (Rec: 10/27/23 14:33 SP [id number]) Cardio Equipment Recumbent Elliptical (Biodex) Duration (Minutes) 6 Resistance 4 Seat Position 9 Other LEs only Gym Equipment Shuttle Recovery Unilateral Squats Details prabha, cued slower ecc direction , increased range w/ tactile cue Resistance 50# (2 navy) Shuttle Recovery Platform Stable Reps/Time 2x10 each LE Bilateral Squats Details cued not lock into ext, // BLEs Resistance 75# (3 navy) Shuttle Recovery Platform Stable Reps/Time 10x2 Gait Training Gait Activity stairs Description (wide top of rail need grab) Device Used cane and L railing (outside step down R/ up L) Level of Assistance CGA, cues Surface 6 stairs x28 MAP bld stairs Distance/Duration asc/desc Treatment Focus safety, SPC sequencing Comments Pt improves consistency w/ SPC sequencing every other step up, descent slower SPC each step. Edu for reasoning for SPC on contralateral side. Neuro Re-Education Treatment Balance Activities squat ball/cone transfer Details cross body: fw, lateral stepping then pivot turn placement Surface mat, 10 cones 10 golf balls Comments CGA gait belt- good stability marching on blue cushion Surface large blue cushion Equipment inside //bars but not needed Reps/Duration x20 obstacle course Details hurdles, blue and green therapads under mat Equipment gait belt Reps/Duration 6x through Comments CGA, STATOR WINDER prn, cues for distant focal point, upright posture, high knee for increased hip flexion which improves foot clearance w/ repetition. PT-OP-R Modalities Start: 09/21/23 16:22 Freq: Status: Active Protocol: Document 09/22/23 10:33 SAK (Rec: 09/22/23 12:32 SAK [id number]) Hot Pack/Cold Pack Treatment Cold Pack Location lumbar spine Patient Position Sitting PT-OP-T Assessment and Plan Start: 09/21/23 16:22 Freq: Status: Active Protocol: Document 10/27/23 13:49 SP (Rec: 10/27/23 14:33 SP [id number]) Physical Therapy Assessment Goals Four Impairment gait dysfunction Impairment requires the use of a straight cane or walker for safe mobility Worm Farmer Goal (LTG) Patient will be able to safely ambulate without an assistive device on level surfaces and with straight cane with outdoor, uneven ground and be able to ascend and descend stairs with step-over step pattern 10/20/23: now ambulating at home without cane, using cane for outdoor and community but hasn 't returned to all prior gait activities especially going to beach to walk due to uneven ground and fear of falling. LTG Duration 12/22/23 Three Impairment weakness Impairment LE weakness including lack of full right knee extension Short Term Goal (STG) Review current HEP and progress as appropriate for LE strengthening, especially focused on terminal knee extension righ 10/20/23: goal achieved STG Duration goal achieved Jail Goal (LTG) Patient to be independent and compliant with HEP and demonstrate 5/5 prabha LE strength to facilitate return to prior level of activity and safety with mobility LTG Duration 12/22/23 Two Impairment Activities in confidence balance scale Impairment 46 indicating low confidence in mobility Short Term Goal (STG) Improve ABC score to at least 60% 10/20/23: ABC score improved to 52% STG Duration 11/07/23 Jail Goal (LTG) Improve ABC score to at least 75% as measure of improved confidence in mobility in her home and the community LTG Duration 12/22/23 One Impairment Belcher Balance score Impairment 37/52 indicating moderate fall risk Short Term Goal (STG) Improve Belcher balance score to at least 44/52 09/20/23: Belcher 41/52 STG Duration 11/07/23 Jail Goal (LTG) Improve Belcher balance score to at least 50/52 to reduce fall risk to low to allow patient to return to prior level of function safely LTG Duration 12/22/23 Assessment Summary Assessment Pt improved consistant with SPC positioning asc/desc stairs, slower pacing descend. CGA during more uneven surface balance obstacle course uncertainty fwd and side stepping cone/ball transfer including pivot turns little sways but no LOB to progress outdoor mgt safety body positioning. Physical Therapy Plan Frequency and Duration Frequency of Treatment 2x/Week Duration of treatment (weeks) 12 Plan of Care Start Date 09/22/23 Plan of Care End Date 12/22/23 Therapeutic Interventions Therapeutic Interventions Balance Training,Gait Training ,Home Exercise Program,Manual Therapy,Patient/Caregiver Education,Self-Care/Home Management,Soft Tissue Mobilization,Taping, Therapeutic Activities, Therapeutic Exercises Modalities Cold Pack/Ice Massage,Electric Stimulation,Hot Packs, Ultrasound Next Visit Focus/Plan Next Note Type Treatment Note Next Visit Plan Continue progressive uneven surface balance activities and Next tx outdoor with SPC/trek poles grassy surface. POC: strengthening, gait training, balance training including on stairs.
--- NOTE | 2023-10-29 09:48 | PT.OTN ---
Current Diagnoses Spinal stenosis, lumbar region with neurogenic claudication (10/29/23) Other specified disorders of bone density and structure, unspecified site (10/29/23) Wedge compression fracture of fourth lumbar vertebra, initial encounter for closed fracture (10/29/23) Physical Therapy Treatment Note PT-OP-A Visit Information Start: 09/21/23 16:22 Freq: Status: Active Protocol: Document 10/29/23 09:09 [facility] (Rec: 10/29/23 09:48 [facility] [id number]) Out-Patient Physical Therapy Visit Information Visit Information Visit Type Treatment Note Visit Note 09/22 post PN Visit Start Time 09:05 Visit Stop Time 09:45 Visit Number 12 Evaluation Information Evaluation Date 09/22/23 Precautions Precautions High fear of falling, history L1 compression fracture PT-OP-B Current Condition Start: 09/21/23 16:22 Freq: Status: Active Protocol: Document 10/20/23 09:02 [facility] (Rec: 10/20/23 09:45 [facility] [id number]) Current Condition History of Current Condition Onset Date 04/20/24 Current Complaints weakness, back pain History of Current Condition compression fracture L1 when fell backward onto gravel going up stairs. Couldn't get up by herself. Son assisted her up and to her house. She just thought she bruised her back, couldn't get into see her primary physician. Went to walk in clinic. Diagnosed with L1 compression fracture. Referred to see Dr. Fair; had second x-ray at [facility]. Told to go home and take it easy and come back in 6 weeks. Fell again going into bank, couldn't feel right knee. Then stayed at home per doctor's recommendation and layed around, using a walker. Then went to [facility] due to hematuria, diagnosed with hemmorrhoid. Fell again stepping into shower wearing socks, then started taking sponge baths. Then didn't trust herself to do anything, fell again not being able to feel her knees and just dropped. Finally diagnosed with UTI, in hospital x 4 days . Feels she has lost a lot of strength. Practicing steps at hospital, fell as she started to descend due to losing balance. Then transferred to care facility in wheelchair or bed most of the time except with PT, states got weaker. Fell at care center as well due to unlocked chair. Had Home Health PT At this time back pain minimal, c/o weakness and fear of falling. Has been doing Home Health, now discharged. C/o weakness right greater than left. Prior Treatments and Tests x-ray: L1 compression fracture MRI: L3-L4: The disc height and disk signal are relatively well-preserved. Mild to moderate disc bulge is seen, with a central disc protrusion. At least moderate facet hypertrophy is seen. Associated hypertrophy of the ligamentum flavum can be seen. Fluid is seen within the facet joints themselves. There is moderate to severe bilateral neural foraminal narrowing seen, with an associated a degree of compression seen upon the exiting nerve roots. At least moderate central canal narrowing is seen. L4-L5: The disc height and disk signal are relatively well-preserved. Mild generalized disc bulge is seen. Moderate facet joint hypertrophy is seen. There is mild-to- moderate right-sided and no left-sided neural foraminal narrowing. No central canal narrowing is seen. L5-S1: At least moderate loss of disc height is seen. Mild to moderate disc bulge is seen, which is eccentric to the left. Mild to moderate facet hypertrophy is seen. No significant neural foraminal or central canal narrowing can be seen. PT-OP-C Subjective Start: 09/21/23 16:22 Freq: Status: Active Protocol: Document 10/29/23 09:09 [facility] (Rec: 10/29/23 09:48 [facility] [id number]) OP-PT Subjective Patient Comments Patient Comments Walking around the house without device, still not going out on uneven ground very much, I need to get to the next level. Today able to put bedside commode toilet on lowest setting and stood up 3x from it without having to use arms. Sees Dr. Fair next week. States most of the time her back feels ok. PT-OP-D Balance Start: 09/21/23 16:22 Freq: Status: Active Protocol: Document 09/22/23 10:33 [facility] (Rec: 09/22/23 12:32 [facility] [id number]) OP-PT Balance Assessment Sitting Balance Static Sitting Balance Ability Normal Dynamic Sitting Balance Ability Normal Balance Tests Belcher Balance Test Belcher Balance Test Score 38 Belcher Balance Assessment Evaluation Sitting to Standing Ability Independent w/out Hands Unsupported Stance Safely- 2 minutes Sitting Unsupported, Feet on Floor Safely- 2 minutes Standing to Sitting Ability Assist, Control w/Hands Transfer Ability Safely, Hand Use Unsupported Stance- Eyes Closed Supervision, 10 seconds Unsupported Stance- Eyes Open Supervision to maintain Reaching Forward Standing Safely, 5 inches Pick- Up Object From Floor Supervision Look Behind Shoulder - Standing Shifts Weight Well Turning 360 Degrees Supervision/Verbal Cues Unsupported Stance, Alternating Feet on 4 Steps w/Supervision Stair Unsupported Tandem Stance Balance Lost- Step/Stand Unilateral Leg Stance Unable,assist to not fall Total Score Belcher Total Score (out of 56 points) 37 Tinetti Balance Assessment Sitting Balance Sitting Balance Steady, safe Scoring and Interpretation Tinetti Composite Score (points) 1 Squires Fall Scale Copyright Permission PT-OP-E Functional Tests Start: 09/21/23 16:22 Freq: Status: Active Protocol: Document 09/22/23 10:33 [facility] (Rec: 09/22/23 12:32 [facility] [id number]) Functional Tests 2 Minute Walk Test Distance 75 Five Times Sit to Stand Test Score 21 Comments UE use PT-OP-F Manual Assessment Start: 09/21/23 16:22 Freq: Status: Active Protocol: Document 09/22/23 10:33 [facility] (Rec: 09/22/23 12:32 [facility] [id number]) Manual Assessments Soft Tissue Assessment Soft Tissue Mobility Assessment TTP lumbar spine with inc soft tissue tightness PT-OP-G Mobility & Gait Start: 09/21/23 16:22 Freq: Status: Active Protocol: Document 09/22/23 10:33 [facility] (Rec: 09/22/23 12:32 [facility] [id number]) OP Gait Assessment Gait Gait Assistance Required: Independent Assistive Devices Assistive Device Straight Cane,4 Wheeled Walker Gait Deviations General Gait Pattern Decreased Stride Length, Decreased Feet Clearance Factors Limiting Gait Function Factors Limiting Gait Function Decreased Activity Tolerance, Decreased Strength Stair Climbing Evaluation Evaluation Level of Assist On Stairs Standby Assistance Devices Stair Climbing Assistive Devices Straight Cane,Left Railing Technique/Endurance Stair Climbing Direction Ascend and Descend Stair Climbing Technique Step to Step PT-OP-J Posture/Palpation/Skin Start: 09/21/23 16:22 Freq: Status: Active Protocol: Document 09/22/23 10:33 [facility] (Rec: 09/22/23 12:32 [facility] [id number]) Posture Evaluation Position Standing Evaluation View Lateral Head/C-Spine Posture Forward Head T-Spine Posture Increased Kyphosis L-Spine Posture Flattened PT-OP-K Range of Motion Start: 09/21/23 16:22 Freq: Status: Active Protocol: Document 09/22/23 10:33 [facility] (Rec: 09/22/23 12:32 [facility] [id number]) Lumbar Spine Range of Motion Lumbar Spine Active Flexion 20 Hip Goniometric Range of Motion Hip prabha Hip ROM WFL No Knee Goniometric Range of Motion Knee prabha Knee ROM WFL Yes Comments except lacking terminal extension right knee -8 Knee ROM Limitations Knee ROM Limitations Muscle Weakness Ankle and Foot Goniometric Range of Motion Ankle and Foot prabha Ankle/Foot ROM WFL Yes PT-OP-M Strength Start: 09/21/23 16:22 Freq: Status: Active Protocol: Document 09/22/23 10:33 [facility] (Rec: 09/22/23 12:32 [facility] [id number]) Trunk Strength Trunk Manual Muscle Testing Flexion 3+ Fair+ Extension 3+ Fair+ Hip Strength Hip Manual Muscle Testing prabha Flexion (L2) 3+ Fair+ Extension (S1) 3- Fair- Abduction 3+ Fair+ Knee Strength Knee Manual Muscle Testing Right Flexion (S2) 4 Good Extension (L3) 3- Fair- Left Flexion (S2) 4+ Good+ Extension (L3) 4+ Good+ Ankle/Foot Strength Ankle and Foot Manual Muscle Testing Right Dorsiflexion (L4) 4 Good Plantarflexion (S1) 4 Good Left Dorsiflexion (L4) 5 Normal Plantarflexion (S1) 5 Normal PT-OP-Q Treatments Start: 09/21/23 16:22 Freq: Status: Active Protocol: Document 10/29/23 09:09 [facility] (Rec: 10/29/23 09:48 [facility] [id number]) Cardio Equipment Recumbent Stepper (Sci-Fit) Duration (Minutes) 8 Resistance 3 Seat Position 11 Other LEs only 59-60 RPMs Gym Equipment Shuttle Recovery Unilateral Squats Details prabha, cued slower ecc direction , increased range w/ tactile cue Resistance 50# (2 navy) Shuttle Recovery Platform Stable Reps/Time 2x10 each LE Bilateral Squats Details cued not lock into ext, // BLEs Resistance 75#, 87# Shuttle Recovery Platform Stable Reps/Time 10x2 Gait Training Gait Activity uneven Description blue mat with foam pads and pods under Device Used trekking poles, SPC Level of Assistance CGA Treatment Focus safety outdoor Device Used SPC Level of Assistance CGA, cues Surface pavement Distance/Duration 7 min Treatment Focus safety Comments level, incline, curb, stairs with railing, no railing Needed mod assist on 2 stairs without railing stairs Description (wide top of rail need grab) Device Used cane and L railing (outside step down R/ up L) Level of Assistance CGA, cues Surface 6 stairs x28 MAP bld stairs Distance/Duration asc/desc Treatment Focus safety, SPC sequencing Comments Pt improves consistency w/ SPC sequencing every other step up, descent slower SPC each step. Edu for reasoning for SPC on contralateral side. level Description trekking poles Level of Assistance SBA Distance/Duration 50' Treatment Focus correct use PT-OP-R Modalities Start: 09/21/23 16:22 Freq: Status: Active Protocol: Document 09/22/23 10:33 [facility] (Rec: 09/22/23 12:32 [facility] [id number]) Hot Pack/Cold Pack Treatment Cold Pack Location lumbar spine Patient Position Sitting PT-OP-T Assessment and Plan Start: 09/21/23 16:22 Freq: Status: Active Protocol: Document 10/29/23 09:09 [facility] (Rec: 10/29/23 09:48 [facility] [id number]) Physical Therapy Assessment Goals Four Impairment gait dysfunction Impairment requires the use of a straight cane or walker for safe mobility Neon Sign Mechanic Goal (LTG) Patient will be able to safely ambulate without an assistive device on level surfaces and with straight cane with outdoor, uneven ground and be able to ascend and descend stairs with step-over step pattern 10/20/23: now ambulating at home without cane, using cane for outdoor and community but hasn 't returned to all prior gait activities especially going to beach to walk due to uneven ground and fear of falling. LTG Duration 12/22/23 Three Impairment weakness Impairment LE weakness including lack of full right knee extension Short Term Goal (STG) Review current HEP and progress as appropriate for LE strengthening, especially focused on terminal knee extension righ 10/20/23: goal achieved STG Duration goal achieved Neon Sign Mechanic Goal (LTG) Patient to be independent and compliant with HEP and demonstrate 5/5 prabha LE strength to facilitate return to prior level of activity and safety with mobility LTG Duration 12/22/23 Two Impairment Activities in confidence balance scale Impairment 46 indicating low confidence in mobility Short Term Goal (STG) Improve ABC score to at least 60% 10/20/23: ABC score improved to 52% STG Duration 11/07/23 Usp Goal (LTG) Improve ABC score to at least 75% as measure of improved confidence in mobility in her home and the community LTG Duration 12/22/23 One Impairment Belcher Balance score Impairment 37/52 indicating moderate fall risk Short Term Goal (STG) Improve Belcher balance score to at least 44/52 09/20/23: Belcher 41/52 STG Duration 11/07/23 Neon Sign Mechanic Goal (LTG) Improve Belcher balance score to at least 50/52 to reduce fall risk to low to allow patient to return to prior level of function safely LTG Duration 12/22/23 Progress Towards Goals Progress Towards Goals Progressing Toward Goals Assessment Summary Assessment Increasing activity level at home, no use of cane in the home but hasn't ventured out onto her yard due to uneven ground. Able to ambulate on uneven ground outside today grass, pavement, incline with CGA and cues using SPC. Trekking poles need new tips. Physical Therapy Plan Frequency and Duration Frequency of Treatment 2x/Week Duration of treatment (weeks) 12 Plan of Care Start Date 09/22/23 Plan of Care End Date 12/22/23 Therapeutic Interventions Therapeutic Interventions Balance Training,Gait Training ,Home Exercise Program,Manual Therapy,Patient/Caregiver Education,Self-Care/Home Management,Soft Tissue Mobilization,Taping, Therapeutic Activities, Therapeutic Exercises Modalities Cold Pack/Ice Massage,Electric Stimulation,Hot Packs, Ultrasound Next Visit Focus/Plan Next Note Type Treatment Note Next Visit Plan Continue progressive strengthening, gait training, balance training including on stairs, grass, incline, outdoors
--- NOTE | 2023-11-02 16:07 | PT.OTN ---
Current Diagnoses Spinal stenosis, lumbar region with neurogenic claudication (11/02/23) Other specified disorders of bone density and structure, unspecified site (11/02/23) Wedge compression fracture of fourth lumbar vertebra, initial encounter for closed fracture (11/02/23) Physical Therapy Treatment Note PT-OP-A Visit Information Start: 09/21/23 16:22 Freq: Status: Active Protocol: Document 11/02/23 15:18 SAK (Rec: 11/02/23 16:07 [facility] [id number]) Out-Patient Physical Therapy Visit Information Visit Information Visit Type Treatment Note Visit Note 10/22 post PN Visit Start Time 15:19 Visit Stop Time 13:00 Visit Number 12 Evaluation Information Evaluation Date 09/22/23 Precautions Precautions High fear of falling, history L1 compression fracture PT-OP-B Current Condition Start: 09/21/23 16:22 Freq: Status: Active Protocol: Document 10/20/23 09:02 SAK (Rec: 10/20/23 09:45 SAK [id number]) Current Condition History of Current Condition Onset Date 04/20/24 Current Complaints weakness, back pain History of Current Condition compression fracture L1 when fell backward onto gravel going up stairs. Couldn't get up by herself. Son assisted her up and to her house. She just thought she bruised her back, couldn't get into see her primary physician. Went to walk in clinic. Diagnosed with L1 compression fracture. Referred to see Dr. Fair; had second x-ray at [facility]. Told to go home and take it easy and come back in 6 weeks. Fell again going into bank, couldn't feel right knee. Then stayed at home per doctor's recommendation and layed around, using a walker. Then went to [facility] due to hematuria, diagnosed with hemmorrhoid. Fell again stepping into shower wearing socks, then started taking sponge baths. Then didn't trust herself to do anything, fell again not being able to feel her knees and just dropped. Finally diagnosed with UTI, in hospital x 4 days . Feels she has lost a lot of strength. Practicing steps at hospital, fell as she started to descend due to losing balance. Then transferred to care facility in wheelchair or bed most of the time except with PT, states got weaker. Fell at care center as well due to unlocked chair. Had Home Health PT At this time back pain minimal, c/o weakness and fear of falling. Has been doing Home Health, now discharged. C/o weakness right greater than left. Prior Treatments and Tests x-ray: L1 compression fracture MRI: L3-L4: The disc height and disk signal are relatively well-preserved. Mild to moderate disc bulge is seen, with a central disc protrusion. At least moderate facet hypertrophy is seen. Associated hypertrophy of the ligamentum flavum can be seen. Fluid is seen within the facet joints themselves. There is moderate to severe bilateral neural foraminal narrowing seen, with an associated a degree of compression seen upon the exiting nerve roots. At least moderate central canal narrowing is seen. L4-L5: The disc height and disk signal are relatively well-preserved. Mild generalized disc bulge is seen. Moderate facet joint hypertrophy is seen. There is mild-to- moderate right-sided and no left-sided neural foraminal narrowing. No central canal narrowing is seen. L5-S1: At least moderate loss of disc height is seen. Mild to moderate disc bulge is seen, which is eccentric to the left. Mild to moderate facet hypertrophy is seen. No significant neural foraminal or central canal narrowing can be seen. PT-OP-C Subjective Start: 09/21/23 16:22 Freq: Status: Active Protocol: Document 11/02/23 15:18 [facility] (Rec: 11/02/23 16:07 [facility] [id number]) OP-PT Subjective Patient Comments Patient Comments No new c/o. 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 PT-OP-D Balance Start: 09/21/23 16:22 Freq: Status: Active Protocol: Document 09/22/23 10:33 [facility] (Rec: 09/22/23 12:32 [facility] [id number]) OP-PT Balance Assessment Sitting Balance Static Sitting Balance Ability Normal Dynamic Sitting Balance Ability Normal Balance Tests Belcher Balance Test Belcher Balance Test Score 38 Belcher Balance Assessment Evaluation Sitting to Standing Ability Independent w/out Hands Unsupported Stance Safely- 2 minutes Sitting Unsupported, Feet on Floor Safely- 2 minutes Standing to Sitting Ability Assist, Control w/Hands Transfer Ability Safely, Hand Use Unsupported Stance- Eyes Closed Supervision, 10 seconds Unsupported Stance- Eyes Open Supervision to maintain Reaching Forward Standing Safely, 5 inches Pick- Up Object From Floor Supervision Look Behind Shoulder - Standing Shifts Weight Well Turning 360 Degrees Supervision/Verbal Cues Unsupported Stance, Alternating Feet on 4 Steps w/Supervision Stair Unsupported Tandem Stance Balance Lost- Step/Stand Unilateral Leg Stance Unable,assist to not fall Total Score Belcher Total Score (out of 56 points) 37 Tinetti Balance Assessment Sitting Balance Sitting Balance Steady, safe Scoring and Interpretation Tinetti Composite Score (points) 1 Squires Fall Scale Copyright Permission PT-OP-E Functional Tests Start: 09/21/23 16:22 Freq: Status: Active Protocol: Document 09/22/23 10:33 [facility] (Rec: 09/22/23 12:32 [facility] [id number]) Functional Tests 2 Minute Walk Test Distance 75 Five Times Sit to Stand Test Score 21 Comments UE use PT-OP-F Manual Assessment Start: 09/21/23 16:22 Freq: Status: Active Protocol: Document 09/22/23 10:33 SAK (Rec: 09/22/23 12:32 [facility] [id number]) Manual Assessments Soft Tissue Assessment Soft Tissue Mobility Assessment TTP lumbar spine with inc soft tissue tightness PT-OP-G Mobility & Gait Start: 09/21/23 16:22 Freq: Status: Active Protocol: Document 09/22/23 10:33 [facility]AK (Rec: 09/22/23 12:32 [facility] [id number]) OP Gait Assessment Gait Gait Assistance Required: Independent Assistive Devices Assistive Device Straight Cane,4 Wheeled Walker Gait Deviations General Gait Pattern Decreased Stride Length, Decreased Feet Clearance Factors Limiting Gait Function Factors Limiting Gait Function Decreased Activity Tolerance, Decreased Strength Stair Climbing Evaluation Evaluation Level of Assist On Stairs Standby Assistance Devices Stair Climbing Assistive Devices Straight Cane,Left Railing Technique/Endurance Stair Climbing Direction Ascend and Descend Stair Climbing Technique Step to Step PT-OP-J Posture/Palpation/Skin Start: 09/21/23 16:22 Freq: Status: Active Protocol: Document 09/22/23 10:33 [facility]AK (Rec: 09/22/23 12:32 [facility] [id number]) Posture Evaluation Position Standing Evaluation View Lateral Head/C-Spine Posture Forward Head T-Spine Posture Increased Kyphosis L-Spine Posture Flattened PT-OP-K Range of Motion Start: 09/21/23 16:22 Freq: Status: Active Protocol: Document 09/22/23 10:33 [facility]AK (Rec: 09/22/23 12:32 [facility] [id number]) Lumbar Spine Range of Motion Lumbar Spine Active Flexion 20 Hip Goniometric Range of Motion Hip prabha Hip ROM WFL No Knee Goniometric Range of Motion Knee prabha Knee ROM WFL Yes Comments except lacking terminal extension right knee -8 Knee ROM Limitations Knee ROM Limitations Muscle Weakness Ankle and Foot Goniometric Range of Motion Ankle and Foot prabha Ankle/Foot ROM WFL Yes PT-OP-M Strength Start: 09/21/23 16:22 Freq: Status: Active Protocol: Document 09/22/23 10:33 [facility] (Rec: 09/22/23 12:32 [facility] [id number]) Trunk Strength Trunk Manual Muscle Testing Flexion 3+ Fair+ Extension 3+ Fair+ Hip Strength Hip Manual Muscle Testing prabha Flexion (L2) 3+ Fair+ Extension (S1) 3- Fair- Abduction 3+ Fair+ Knee Strength Knee Manual Muscle Testing Right Flexion (S2) 4 Good Extension (L3) 3- Fair- Left Flexion (S2) 4+ Good+ Extension (L3) 4+ Good+ Ankle/Foot Strength Ankle and Foot Manual Muscle Testing Right Dorsiflexion (L4) 4 Good Plantarflexion (S1) 4 Good Left Dorsiflexion (L4) 5 Normal Plantarflexion (S1) 5 Normal PT-OP-Q Treatments Start: 09/21/23 16:22 Freq: Status: Active Protocol: Document 11/02/23 15:18 [facility] (Rec: 11/02/23 16:07 [facility] [id number]) Gym Equipment Shuttle Balance chains red Details bal and wt shift fwd/bck, side Reps/Duration 7 min Therapeutic Exercises Standing Exercises split squat Reps/Minutes 10x ea Therapeutic Activity Therapeutic Activity floor transfer Comments verbal cues and CGA Gait Training Gait Activity outdoor Device Used trekking poles (2) Level of Assistance CGA, cues Surface pavement Distance/Duration 10 min Treatment Focus safety Comments level, incline, curb, stairs with railing, no railing, gravel Needed min assist on 2 stairs without railing level Description trekking poles, new tips Level of Assistance SBA Distance/Duration 50'x2 Treatment Focus correct use Comments indoor PT-OP-R Modalities Start: 09/21/23 16:22 Freq: Status: Active Protocol: Document 09/22/23 10:33 [facility] (Rec: 09/22/23 12:32 [facility] [id number]) Hot Pack/Cold Pack Treatment Cold Pack Location lumbar spine Patient Position Sitting PT-OP-T Assessment and Plan Start: 09/21/23 16:22 Freq: Status: Active Protocol: Document 11/02/23 15:18 [facility] (Rec: 11/02/23 16:07 [facility] [id number]) Physical Therapy Assessment Goals Four Impairment gait dysfunction Impairment requires the use of a straight cane or walker for safe mobility Groundskeeping Maintenance Goal (LTG) Patient will be able to safely ambulate without an assistive device on level surfaces and with straight cane with outdoor, uneven ground and be able to ascend and descend stairs with step-over step pattern 10/20/23: now ambulating at home without cane, using cane for outdoor and community but hasn 't returned to all prior gait activities especially going to beach to walk due to uneven ground and fear of falling. LTG Duration 12/22/23 Three Impairment weakness Impairment LE weakness including lack of full right knee extension Short Term Goal (STG) Review current HEP and progress as appropriate for LE strengthening, especially focused on terminal knee extension righ 10/20/23: goal achieved STG Duration goal achieved Groundskeeping Maintenance Goal (LTG) Patient to be independent and compliant with HEP and demonstrate 5/5 prabha LE strength to facilitate return to prior level of activity and safety with mobility LTG Duration 12/22/23 Two Impairment Activities in confidence balance scale Impairment 46 indicating low confidence in mobility Short Term Goal (STG) Improve ABC score to at least 60% 10/20/23: ABC score improved to 52% STG Duration 11/07/23 Groundskeeping Maintenance Goal (LTG) Improve ABC score to at least 75% as measure of improved confidence in mobility in her home and the community LTG Duration 12/22/23 One Impairment Belcher Balance score Impairment 37/52 indicating moderate fall risk Short Term Goal (STG) Improve Belcher balance score to at least 44/52 10/20/23: Belcher 41/52 STG Duration 11/07/23 Correction Goal (LTG) Improve Belcher balance score to at least 50/52 to reduce fall risk to low to allow patient to return to prior level of function safely LTG Duration 12/22/23 Assessment Summary Assessment Increased gait activities outdoors on different surfaces , curbs, incline, gravel, grass with trekking poles with CGA and verbal cues; no LOB. Trial floor transfer with CGA and cues using black hi lo table and pillow for knees. Added functional split squat exercise. Continues to progress toward PT goals. Physical Therapy Plan Frequency and Duration Frequency of Treatment 2x/Week Duration of treatment (weeks) 12 Plan of Care Start Date 09/22/23 Plan of Care End Date 12/22/23 Therapeutic Interventions Therapeutic Interventions Balance Training,Gait Training ,Home Exercise Program,Manual Therapy,Patient/Caregiver Education,Self-Care/Home Management,Soft Tissue Mobilization,Taping, Therapeutic Activities, Therapeutic Exercises Modalities Cold Pack/Ice Massage,Electric Stimulation,Hot Packs, Ultrasound Next Visit Focus/Plan Next Note Type Treatment Note Next Visit Plan Continue gait training variable surfaces, do obstacle course, further stairs, progress strengthening and balance. Issue HO for split squat
--- NOTE | 2023-11-04 11:14 | PT.OTN ---
Current Diagnoses Spinal stenosis, lumbar region with neurogenic claudication (11/04/23) Other specified disorders of bone density and structure, unspecified site (11/04/23) Wedge compression fracture of fourth lumbar vertebra, initial encounter for closed fracture (11/04/23) Physical Therapy Treatment Note PT-OP-A Visit Information Start: 09/21/23 16:22 Freq: Status: Active Protocol: Document 11/04/23 10:36 SP (Rec: 11/04/23 11:25 SP [id number]) Out-Patient Physical Therapy Visit Information Visit Information Visit Type Treatment Note Visit Note 28/03 post eval- due for PN next visit Visit Start Time 10:36 Visit Stop Time 11:14 Visit Number 14 Number of METALSMITH Visits 1 Evaluation Information Evaluation Date 09/22/23 Precautions Precautions High fear of falling, history L1 compression fracture PT-OP-B Current Condition Start: 09/21/23 16:22 Freq: Status: Active Protocol: Document 10/20/23 09:02 SAK (Rec: 10/20/23 09:45 SAK [id number]) Current Condition History of Current Condition Onset Date 04/20/24 Current Complaints weakness, back pain History of Current Condition compression fracture L1 when fell backward onto gravel going up stairs. Couldn't get up by herself. Son assisted her up and to her house. She just thought she bruised her back, couldn't get into see her primary physician. Went to walk in clinic. Diagnosed with L1 compression fracture. Referred to see Dr. Fair; had second x-ray at [facility]. Told to go home and take it easy and come back in 6 weeks. Fell again going into bank, couldn't feel right knee. Then stayed at home per doctor's recommendation and layed around, using a walker. Then went to [facility] due to hematuria, diagnosed with hemmorrhoid. Fell again stepping into shower wearing socks, then started taking sponge baths. Then didn't trust herself to do anything, fell again not being able to feel her knees and just dropped. Finally diagnosed with UTI, in hospital x 4 days . Feels she has lost a lot of strength. Practicing steps at hospital, fell as she started to descend due to losing balance. Then transferred to care facility in wheelchair or bed most of the time except with PT, states got weaker. Fell at care center as well due to unlocked chair. Had Home Health PT At this time back pain minimal, c/o weakness and fear of falling. Has been doing Home Health, now discharged. C/o weakness right greater than left. Prior Treatments and Tests x-ray: L1 compression fracture MRI: L3-L4: The disc height and disk signal are relatively well-preserved. Mild to moderate disc bulge is seen, with a central disc protrusion. At least moderate facet hypertrophy is seen. Associated hypertrophy of the ligamentum flavum can be seen. Fluid is seen within the facet joints themselves. There is moderate to severe bilateral neural foraminal narrowing seen, with an associated a degree of compression seen upon the exiting nerve roots. At least moderate central canal narrowing is seen. L4-L5: The disc height and disk signal are relatively well-preserved. Mild generalized disc bulge is seen. Moderate facet joint hypertrophy is seen. There is mild-to- moderate right-sided and no left-sided neural foraminal narrowing. No central canal narrowing is seen. L5-S1: At least moderate loss of disc height is seen. Mild to moderate disc bulge is seen, which is eccentric to the left. Mild to moderate facet hypertrophy is seen. No significant neural foraminal or central canal narrowing can be seen. PT-OP-C Subjective Start: 09/21/23 16:22 Freq: Status: Active Protocol: Document 11/04/23 10:36 SP (Rec: 11/04/23 11:25 SP [id number]) OP-PT Subjective Patient Comments Patient Comments Pt reports reports was helpful doing floor transfers but needs use chair for support. Wants to continue progress mobiltiy to continue and if can do without eventually. Sees DrYoung at 4pm today asking for xray on how her back is healing. She is doing some dancing without cane. PT-OP-D Balance Start: 09/21/23 16:22 Freq: Status: Active Protocol: Document 09/22/23 10:33 SAK (Rec: 09/22/23 12:32 SAK [id number]) OP-PT Balance Assessment Sitting Balance Static Sitting Balance Ability Normal Dynamic Sitting Balance Ability Normal Balance Tests Belcher Balance Test Belcher Balance Test Score 38 Belcher Balance Assessment Evaluation Sitting to Standing Ability Independent w/out Hands Unsupported Stance Safely- 2 minutes Sitting Unsupported, Feet on Floor Safely- 2 minutes Standing to Sitting Ability Assist, Control w/Hands Transfer Ability Safely, Hand Use Unsupported Stance- Eyes Closed Supervision, 10 seconds Unsupported Stance- Eyes Open Supervision to maintain Reaching Forward Standing Safely, 5 inches Pick- Up Object From Floor Supervision Look Behind Shoulder - Standing Shifts Weight Well Turning 360 Degrees Supervision/Verbal Cues Unsupported Stance, Alternating Feet on 4 Steps w/Supervision Stair Unsupported Tandem Stance Balance Lost- Step/Stand Unilateral Leg Stance Unable,assist to not fall Total Score Belcher Total Score (out of 56 points) 37 Tinetti Balance Assessment Sitting Balance Sitting Balance Steady, safe Scoring and Interpretation Tinetti Composite Score (points) 1 Squires Fall Scale Copyright Permission PT-OP-E Functional Tests Start: 09/21/23 16:22 Freq: Status: Active Protocol: Document 09/22/23 10:33 [facility] (Rec: 09/22/23 12:32 [facility] [id number]) Functional Tests 2 Minute Walk Test Distance 75 Five Times Sit to Stand Test Score 21 Comments UE use PT-OP-F Manual Assessment Start: 09/21/23 16:22 Freq: Status: Active Protocol: Document 09/22/23 10:33 SAK (Rec: 09/22/23 12:32 [facility] [id number]) Manual Assessments Soft Tissue Assessment Soft Tissue Mobility Assessment TTP lumbar spine with inc soft tissue tightness PT-OP-G Mobility & Gait Start: 09/21/23 16:22 Freq: Status: Active Protocol: Document 09/22/23 10:33 SAK (Rec: 09/22/23 12:32 [facility] [id number]) OP Gait Assessment Gait Gait Assistance Required: Independent Assistive Devices Assistive Device Straight Cane,4 Wheeled Walker Gait Deviations General Gait Pattern Decreased Stride Length, Decreased Feet Clearance Factors Limiting Gait Function Factors Limiting Gait Function Decreased Activity Tolerance, Decreased Strength Stair Climbing Evaluation Evaluation Level of Assist On Stairs Standby Assistance Devices Stair Climbing Assistive Devices Straight Cane,Left Railing Technique/Endurance Stair Climbing Direction Ascend and Descend Stair Climbing Technique Step to Step PT-OP-J Posture/Palpation/Skin Start: 09/21/23 16:22 Freq: Status: Active Protocol: Document 09/22/23 10:33 SAK (Rec: 09/22/23 12:32 [facility] [id number]) Posture Evaluation Position Standing Evaluation View Lateral Head/C-Spine Posture Forward Head T-Spine Posture Increased Kyphosis L-Spine Posture Flattened PT-OP-K Range of Motion Start: 09/21/23 16:22 Freq: Status: Active Protocol: Document 09/22/23 10:33 SAK (Rec: 09/22/23 12:32 SAK [id number]) Lumbar Spine Range of Motion Lumbar Spine Active Flexion 20 Hip Goniometric Range of Motion Hip prabha Hip ROM WFL No Knee Goniometric Range of Motion Knee prabha Knee ROM WFL Yes Comments except lacking terminal extension right knee -8 Knee ROM Limitations Knee ROM Limitations Muscle Weakness Ankle and Foot Goniometric Range of Motion Ankle and Foot prabha Ankle/Foot ROM WFL Yes PT-OP-M Strength Start: 09/21/23 16:22 Freq: Status: Active Protocol: Document 09/22/23 10:33 SAK (Rec: 09/22/23 12:32 SAK [id number]) Trunk Strength Trunk Manual Muscle Testing Flexion 3+ Fair+ Extension 3+ Fair+ Hip Strength Hip Manual Muscle Testing prabha Flexion (L2) 3+ Fair+ Extension (S1) 3- Fair- Abduction 3+ Fair+ Knee Strength Knee Manual Muscle Testing Right Flexion (S2) 4 Good Extension (L3) 3- Fair- Left Flexion (S2) 4+ Good+ Extension (L3) 4+ Good+ Ankle/Foot Strength Ankle and Foot Manual Muscle Testing Right Dorsiflexion (L4) 4 Good Plantarflexion (S1) 4 Good Left Dorsiflexion (L4) 5 Normal Plantarflexion (S1) 5 Normal PT-OP-Q Treatments Start: 09/21/23 16:22 Freq: Status: Active Protocol: Document 11/04/23 10:36 SP (Rec: 11/04/23 11:25 SP [id number]) Gym Equipment Sport Cord red Exercise Details f/b/lateral Reps/Duration 3 reps each Comments cued Min A as needed 1st rep each direction eccentric control stability Therapeutic Activity Therapeutic Activity floor transfer Name use chair (therapist stabilize chair) Reps/Minutes 2 Comments verbal cues UE/LE foot postiand CGA Neuro Re-Education Treatment Balance Activities 360 pivot turns around chair Details Right and Left (180 deg pivot turns) Equipment light contact as needed Reps/Duration 4 reps Comments cued pivot turns toward chair for safety support as needed change direction obstacle course Details 2 hurdles, blue& green therapads, 4 step under mat Equipment gait belt initialy set SPC, rest CGA Reps/Duration 3 laps each (fwd, lateral) Comments CGA, [employer] prn, cues for distant focal point, upright posture, high knee for increased hip flexion which improves foot clearance w/ repetition. PT-OP-R Modalities Start: 09/21/23 16:22 Freq: Status: Active Protocol: Document 09/22/23 10:33 SAK (Rec: 09/22/23 12:32 SAK [id number]) Hot Pack/Cold Pack Treatment Cold Pack Location lumbar spine Patient Position Sitting PT-OP-T Assessment and Plan Start: 09/21/23 16:22 Freq: Status: Active Protocol: Document 11/04/23 10:36 SP (Rec: 11/04/23 11:25 SP [id number]) Physical Therapy Assessment Goals Four Impairment gait dysfunction Impairment requires the use of a straight cane or walker for safe mobility Fpc Goal (LTG) Patient will be able to safely ambulate without an assistive device on level surfaces and with straight cane with outdoor, uneven ground and be able to ascend and descend stairs with step-over step pattern 10/20/23: now ambulating at home without cane, using cane for outdoor and community but hasn 't returned to all prior gait activities especially going to beach to walk due to uneven ground and fear of falling. LTG Duration 12/22/23 Three Impairment weakness Impairment LE weakness including lack of full right knee extension Short Term Goal (STG) Review current HEP and progress as appropriate for LE strengthening, especially focused on terminal knee extension righ 10/20/23: goal achieved STG Duration goal achieved [place] Goal (LTG) Patient to be independent and compliant with HEP and demonstrate 5/5 prabha LE strength to facilitate return to prior level of activity and safety with mobility LTG Duration 12/22/23 Two Impairment Activities in confidence balance scale Impairment 46 indicating low confidence in mobility Short Term Goal (STG) Improve ABC score to at least 60% 10/20/23: ABC score improved to 52% STG Duration 11/07/23 Fpc Goal (LTG) Improve ABC score to at least 75% as measure of improved confidence in mobility in her home and the community LTG Duration 12/22/23 One Impairment Belcher Balance score Impairment 37/52 indicating moderate fall risk Short Term Goal (STG) Improve Belcher balance score to at least 44/52 10/20/23: Belcher 41/52 STG Duration 11/07/23 [place] Goal (LTG) Improve Belcher balance score to at least 50/52 to reduce fall risk to low to allow patient to return to prior level of function safely LTG Duration 12/22/23 Assessment Summary Assessment Pt good effort and sequencing body positioning on/off floor, up/over uneven mat assimulate uneven outdoor (wet outside), eccentric stepping against tension and walking 180 deg change direction with cuing as needed for body positioning for safety and use outside support for safety. Pt reports alot tension in B knees when into quadruped, cued for move into side sitting and continue mobility to off load knees, improved able to complete 2 reps today, heavy on BUE for support but not need outside assist other than chair while stabilized. pt able to completed uneven surface mat without SPC today fwd and lateral today, cued slower pacing for COG over LISANDRA with ability to add 2 hurdles today . Physical Therapy Plan Frequency and Duration Frequency of Treatment 2x/Week Duration of treatment (weeks) 12 Plan of Care Start Date 09/22/23 Plan of Care End Date 12/22/23 Therapeutic Interventions Therapeutic Interventions Balance Training,Gait Training ,Home Exercise Program,Manual Therapy,Patient/Caregiver Education,Self-Care/Home Management,Soft Tissue Mobilization,Taping, Therapeutic Activities, Therapeutic Exercises Modalities Cold Pack/Ice Massage,Electric Stimulation,Hot Packs, Ultrasound Next Visit Focus/Plan Next Note Type Progress Note Next Visit Plan Due for PN Next tx with PT. POC: Continue gait training variable surfaces, do obstacle course, further stairs, progress strengthening and balance. Issue HO for split squat
--- NOTE | 2023-11-11 14:38 | PT.OTN ---
Current Diagnoses Spinal stenosis, lumbar region with neurogenic claudication (11/11/23) Other specified disorders of bone density and structure, unspecified site (11/11/23) Wedge compression fracture of fourth lumbar vertebra, initial encounter for closed fracture (11/11/23) Physical Therapy Treatment Note PT-OP-A Visit Information Start: 09/21/23 16:22 Freq: Status: Active Protocol: Document 11/11/23 09:03 [facility] (Rec: 11/11/23 09:44 [facility] [id number]) Out-Patient Physical Therapy Visit Information Visit Information Visit Type Treatment Note Visit Note 12/22 post PN Visit Start Time 09:02 Visit Stop Time 09:45 Visit Number 14 Number of ART DIRECTOR Visits 0 Evaluation Information Evaluation Date 09/22/23 Precautions Precautions High fear of falling, history L1 compression fracture PT-OP-B Current Condition Start: 09/21/23 16:22 Freq: Status: Active Protocol: Document 11/11/23 09:03 [facility] (Rec: 11/11/23 09:44 [facility] [id number]) Current Condition History of Current Condition Onset Date 04/20/24 Current Complaints weakness, back pain History of Current Condition compression fracture L1 when fell backward onto gravel going up stairs. Couldn't get up by herself. Son assisted her up and to her house. She just thought she bruised her back, couldn't get into see her primary physician. Went to walk in clinic. Diagnosed with L1 compression fracture. Referred to see Dr. Fair; had second x-ray at [facility]. Told to go home and take it easy and come back in 6 weeks. Fell again going into bank, couldn't feel right knee. Then stayed at home per doctor's recommendation and layed around, using a walker. Then went to [facility] due to hematuria, diagnosed with hemmorrhoid. Fell again stepping into shower wearing socks, then started taking sponge baths. Then didn't trust herself to do anything, fell again not being able to feel her knees and just dropped. Finally diagnosed with UTI, in hospital x 4 days . Feels she has lost a lot of strength. Practicing steps at hospital, fell as she started to descend due to losing balance. Then transferred to care facility in wheelchair or bed most of the time except with PT, states got weaker. Fell at care center as well due to unlocked chair. Had Home Health PT At this time back pain minimal, c/o weakness and fear of falling. Has been doing Home Health, now discharged. C/o weakness right greater than left. Prior Treatments and Tests x-ray: L1 compression fracture MRI: L3-L4: The disc height and disk signal are relatively well-preserved. Mild to moderate disc bulge is seen, with a central disc protrusion. At least moderate facet hypertrophy is seen. Associated hypertrophy of the ligamentum flavum can be seen. Fluid is seen within the facet joints themselves. There is moderate to severe bilateral neural foraminal narrowing seen, with an associated a degree of compression seen upon the exiting nerve roots. At least moderate central canal narrowing is seen. L4-L5: The disc height and disk signal are relatively well-preserved. Mild generalized disc bulge is seen. Moderate facet joint hypertrophy is seen. There is mild-to- moderate right-sided and no left-sided neural foraminal narrowing. No central canal narrowing is seen. L5-S1: At least moderate loss of disc height is seen. Mild to moderate disc bulge is seen, which is eccentric to the left. Mild to moderate facet hypertrophy is seen. No significant neural foraminal or central canal narrowing can be seen. PT-OP-C Subjective Start: 09/21/23 16:22 Freq: Status: Active Protocol: Document 11/11/23 09:03 [facility] (Rec: 11/11/23 09:44 [facility] [id number]) OP-PT Subjective Patient Comments Patient Comments Saw Dr. Fair last week, pleased with progress. Patient referred to Dr. Stratton but confused about reason, states something about putting fluid into an area of her spine or surgery. Denies significant back pain. PT-OP-D Balance Start: 09/21/23 16:22 Freq: Status: Active Protocol: Document 09/22/23 10:33 [facility] (Rec: 09/22/23 12:32 [facility] [id number]) OP-PT Balance Assessment Sitting Balance Static Sitting Balance Ability Normal Dynamic Sitting Balance Ability Normal Balance Tests Belcher Balance Test Belcher Balance Test Score 38 Belcher Balance Assessment Evaluation Sitting to Standing Ability Independent w/out Hands Unsupported Stance Safely- 2 minutes Sitting Unsupported, Feet on Floor Safely- 2 minutes Standing to Sitting Ability Assist, Control w/Hands Transfer Ability Safely, Hand Use Unsupported Stance- Eyes Closed Supervision, 10 seconds Unsupported Stance- Eyes Open Supervision to maintain Reaching Forward Standing Safely, 5 inches Pick- Up Object From Floor Supervision Look Behind Shoulder - Standing Shifts Weight Well Turning 360 Degrees Supervision/Verbal Cues Unsupported Stance, Alternating Feet on 4 Steps w/Supervision Stair Unsupported Tandem Stance Balance Lost- Step/Stand Unilateral Leg Stance Unable,assist to not fall Total Score Belcher Total Score (out of 56 points) 37 Tinetti Balance Assessment Sitting Balance Sitting Balance Steady, safe Scoring and Interpretation Tinetti Composite Score (points) 1 Squires Fall Scale Copyright Permission PT-OP-E Functional Tests Start: 09/21/23 16:22 Freq: Status: Active Protocol: Document 09/22/23 10:33 [facility] (Rec: 09/22/23 12:32 [facility] [id number]) Functional Tests 2 Minute Walk Test Distance 75 Five Times Sit to Stand Test Score 21 Comments UE use PT-OP-F Manual Assessment Start: 09/21/23 16:22 Freq: Status: Active Protocol: Document 09/22/23 10:33 [facility] (Rec: 09/22/23 12:32 [facility] [id number]) Manual Assessments Soft Tissue Assessment Soft Tissue Mobility Assessment TTP lumbar spine with inc soft tissue tightness PT-OP-G Mobility & Gait Start: 09/21/23 16:22 Freq: Status: Active Protocol: Document 09/22/23 10:33 [facility] (Rec: 09/22/23 12:32 [facility] [id number]) OP Gait Assessment Gait Gait Assistance Required: Independent Assistive Devices Assistive Device Straight Cane,4 Wheeled Walker Gait Deviations General Gait Pattern Decreased Stride Length, Decreased Feet Clearance Factors Limiting Gait Function Factors Limiting Gait Function Decreased Activity Tolerance, Decreased Strength Stair Climbing Evaluation Evaluation Level of Assist On Stairs Standby Assistance Devices Stair Climbing Assistive Devices Straight Cane,Left Railing Technique/Endurance Stair Climbing Direction Ascend and Descend Stair Climbing Technique Step to Step PT-OP-J Posture/Palpation/Skin Start: 09/21/23 16:22 Freq: Status: Active Protocol: Document 09/22/23 10:33 [facility] (Rec: 09/22/23 12:32 [facility] [id number]) Posture Evaluation Position Standing Evaluation View Lateral Head/C-Spine Posture Forward Head T-Spine Posture Increased Kyphosis L-Spine Posture Flattened PT-OP-K Range of Motion Start: 09/21/23 16:22 Freq: Status: Active Protocol: Document 09/22/23 10:33 [facility] (Rec: 09/22/23 12:32 [facility] [id number]) Lumbar Spine Range of Motion Lumbar Spine Active Flexion 20 Hip Goniometric Range of Motion Hip prabha Hip ROM WFL No Knee Goniometric Range of Motion Knee prabha Knee ROM WFL Yes Comments except lacking terminal extension right knee -8 Knee ROM Limitations Knee ROM Limitations Muscle Weakness Ankle and Foot Goniometric Range of Motion Ankle and Foot prabha Ankle/Foot ROM WFL Yes PT-OP-M Strength Start: 09/21/23 16:22 Freq: Status: Active Protocol: Document 09/22/23 10:33 [facility] (Rec: 09/22/23 12:32 [facility] [id number]) Trunk Strength Trunk Manual Muscle Testing Flexion 3+ Fair+ Extension 3+ Fair+ Hip Strength Hip Manual Muscle Testing prabha Flexion (L2) 3+ Fair+ Extension (S1) 3- Fair- Abduction 3+ Fair+ Knee Strength Knee Manual Muscle Testing Right Flexion (S2) 4 Good Extension (L3) 3- Fair- Left Flexion (S2) 4+ Good+ Extension (L3) 4+ Good+ Ankle/Foot Strength Ankle and Foot Manual Muscle Testing Right Dorsiflexion (L4) 4 Good Plantarflexion (S1) 4 Good Left Dorsiflexion (L4) 5 Normal Plantarflexion (S1) 5 Normal PT-OP-Q Treatments Start: 09/21/23 16:22 Freq: Status: Active Protocol: Document 11/11/23 09:03 [facility] (Rec: 11/11/23 09:44 [facility] [id number]) Cardio Equipment Recumbent Stepper (Sci-Fit) Duration (Minutes) 10 Resistance 3 Seat Position 11 Other LEs only 59-60 RPMs Gym Equipment Shuttle Recovery Unilateral Squats Details prabha, cued slower ecc direction , increased range w/ tactile cue Resistance 50# (2 navy) Shuttle Recovery Platform Stable Reps/Time 2x10 each LE Therapeutic Exercises Standing Exercises sit to stand with band Side bilateral Reps/Minutes 10x Comments no UE support, cues for gluteal activation Gait Training Gait Activity stairs Description (wide top of rail need grab) Device Used cane and L railing (outside step down R/ up L) Level of Assistance CGA, cues Surface 4 stairs x28 MAP bld stairs x 2 Distance/Duration asc/desc Treatment Focus safety, SPC sequencing Comments cues for gluteal activation Neuro Re-Education Treatment Balance Activities obstacle course Details 2 hurdles, blue& green therapads, 4 step under mat Equipment gait belt initialy set SPC, rest CGA Reps/Duration 3 laps each (fwd, lateral) Comments CGA, [employer] ANALYST prn, cues for distant focal point, upright posture, high knee for increased hip flexion which improves foot clearance w/ repetition. 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 LTG Duration 12/22/23 Three Impairment weakness Impairment LE weakness including lack of full right knee extension Short Term Goal (STG) Review current HEP and progress as appropriate for LE strengthening, especially focused on terminal knee extension righ 10/20/23: goal achieved STG Duration goal achieved Detention Goal (LTG) Patient to be independent and compliant with HEP and demonstrate 5/5 prabha LE strength to facilitate return to prior level of activity and safety with mobility LTG Duration 12/22/23 Two Impairment Activities in confidence balance scale Impairment 46 indicating low confidence in mobility Short Term Goal (STG) Improve ABC score to at least 60% 10/20/23: ABC score improved to 52% STG Duration 11/07/23 Detention Goal (LTG) Improve ABC score to at least 75% as measure of improved confidence in mobility in her home and the community LTG Duration 12/22/23 One Impairment Belcher Balance score Impairment 37/52 indicating moderate fall risk Short Term Goal (STG) Improve Belcher balance score to at least 44/52 10/20/23: Belcher 41/52 STG Duration 11/07/23 Detention Goal (LTG) Improve Belcher balance score to at least 50/52 to reduce fall risk to low to allow patient to return to prior level of function safely LTG Duration 12/22/23 Assessment Summary Assessment Improving gluteal activation with cues and repetition on stairs, with sit to stands, and with shuttle leg press. Slow and careful on stairs but no giving way of legs. Physical Therapy Plan Frequency and Duration Frequency of Treatment 2x/Week Duration of treatment (weeks) 12 Plan of Care Start Date 09/22/23 Plan of Care End Date 12/22/23 Therapeutic Interventions Therapeutic Interventions Balance Training,Gait Training ,Home Exercise Program,Manual Therapy,Patient/Caregiver Education,Self-Care/Home Management,Soft Tissue Mobilization,Taping, Therapeutic Activities, Therapeutic Exercises Modalities Cold Pack/Ice Massage,Electric Stimulation,Hot Packs, Ultrasound Next Visit Focus/Plan Next Note Type Progress Note Next Visit Plan Due for PN Next tx with PT. POC: Continue gait training variable surfaces, do obstacle course, further stairs, progress strengthening and balance. Issue HO for split squat
--- NOTE | 2023-11-13 09:02 | PT.OTN ---
Current Diagnoses Spinal stenosis, lumbar region with neurogenic claudication (11/20/23) Other specified disorders of bone density and structure, unspecified site (11/20/23) Wedge compression fracture of fourth lumbar vertebra, initial encounter for closed fracture (11/20/23) Physical Therapy Treatment Note PT-OP-A Visit Information Start: 09/21/23 16:22 Freq: Status: Active Protocol: Document 11/24/23 08:18 SP (Rec: 11/13/23 10:03 SP [id number]) Out-Patient Physical Therapy Visit Information Visit Information Visit Type Treatment Note Visit Note 15 appts post eval, PN 11/24/23 appt. Visit Start Time 09:02 Visit Stop Time 09:42 Visit Number 15 Number of TIME STUDY ENGINEER Visits 1 Evaluation Information Evaluation Date 09/22/23 Precautions Precautions High fear of falling, history L1 compression fracture PT-OP-B Current Condition Start: 09/21/23 16:22 Freq: Status: Active Protocol: Document 11/11/23 09:03 SAK (Rec: 11/11/23 09:44 SAK [id number]) Current Condition History of Current Condition Onset Date 04/20/24 Current Complaints weakness, back pain History of Current Condition compression fracture L1 when fell backward onto gravel going up stairs. Couldn't get up by herself. Son assisted her up and to her house. She just thought she bruised her back, couldn't get into see her primary physician. Went to walk in clinic. Diagnosed with L1 compression fracture. Referred to see Dr. Fair; had second x-ray at [facility]. Told to go home and take it easy and come back in 6 weeks. Fell again going into bank, couldn't feel right knee. Then stayed at home per doctor's recommendation and layed around, using a walker. Then went to [facility] due to hematuria, diagnosed with hemmorrhoid. Fell again stepping into shower wearing socks, then started taking sponge baths. Then didn't trust herself to do anything, fell again not being able to feel her knees and just dropped. Finally diagnosed with UTI, in hospital x 4 days . Feels she has lost a lot of strength. Practicing steps at hospital, fell as she started to descend due to losing balance. Then transferred to care facility in wheelchair or bed most of the time except with PT, states got weaker. Fell at care center as well due to unlocked chair. Had Home Health PT At this time back pain minimal, c/o weakness and fear of falling. Has been doing Home Health, now discharged. C/o weakness right greater than left. Prior Treatments and Tests x-ray: L1 compression fracture MRI: L3-L4: The disc height and disk signal are relatively well-preserved. Mild to moderate disc bulge is seen, with a central disc protrusion. At least moderate facet hypertrophy is seen. Associated hypertrophy of the ligamentum flavum can be seen. Fluid is seen within the facet joints themselves. There is moderate to severe bilateral neural foraminal narrowing seen, with an associated a degree of compression seen upon the exiting nerve roots. At least moderate central canal narrowing is seen. L4-L5: The disc height and disk signal are relatively well-preserved. Mild generalized disc bulge is seen. Moderate facet joint hypertrophy is seen. There is mild-to- moderate right-sided and no left-sided neural foraminal narrowing. No central canal narrowing is seen. L5-S1: At least moderate loss of disc height is seen. Mild to moderate disc bulge is seen, which is eccentric to the left. Mild to moderate facet hypertrophy is seen. No significant neural foraminal or central canal narrowing can be seen. PT-OP-C Subjective Start: 09/21/23 16:22 Freq: Status: Active Protocol: Document 11/24/23 08:18 SP (Rec: 11/13/23 10:03 SP [id number]) OP-PT Subjective Patient Comments Patient Comments Pt reports walks around house no problems, outside gravel and grass feed chickens and modified dance. She reports uses her prabha walking sticks level at school and son's property uneven ground good weather days no problems, has cane to use but only when needed community, eg store. She stated used to go to the beach but hasn't since hurt her back. PT-OP-D Balance Start: 09/21/23 16:22 Freq: Status: Active Protocol: Document 09/22/23 10:33 SAK (Rec: 09/22/23 12:32 SAK [id number]) OP-PT Balance Assessment Sitting Balance Static Sitting Balance Ability Normal Dynamic Sitting Balance Ability Normal Balance Tests Belcher Balance Test Belcher Balance Test Score 38 Belcher Balance Assessment Evaluation Sitting to Standing Ability Independent w/out Hands Unsupported Stance Safely- 2 minutes Sitting Unsupported, Feet on Floor Safely- 2 minutes Standing to Sitting Ability Assist, Control w/Hands Transfer Ability Safely, Hand Use Unsupported Stance- Eyes Closed Supervision, 10 seconds Unsupported Stance- Eyes Open Supervision to maintain Reaching Forward Standing Safely, 5 inches Pick- Up Object From Floor Supervision Look Behind Shoulder - Standing Shifts Weight Well Turning 360 Degrees Supervision/Verbal Cues Unsupported Stance, Alternating Feet on 4 Steps w/Supervision Stair Unsupported Tandem Stance Balance Lost- Step/Stand Unilateral Leg Stance Unable,assist to not fall Total Score Eblcher Total Score (out of 56 points) 37 Tinetti Balance Assessment Sitting Balance Sitting Balance Steady, safe Scoring and Interpretation Tinetti Composite Score (points) 1 Squires Fall Scale Copyright Permission PT-OP-E Functional Tests Start: 09/21/23 16:22 Freq: Status: Active Protocol: Document 09/22/23 10:33 SAK (Rec: 09/22/23 12:32 [facility] [id number]) Functional Tests 2 Minute Walk Test Distance 75 Five Times Sit to Stand Test Score 21 Comments UE use PT-OP-F Manual Assessment Start: 09/21/23 16:22 Freq: Status: Active Protocol: Document 09/22/23 10:33 SAK (Rec: 09/22/23 12:32 [facility] [id number]) Manual Assessments Soft Tissue Assessment Soft Tissue Mobility Assessment TTP lumbar spine with inc soft tissue tightness PT-OP-G Mobility & Gait Start: 09/21/23 16:22 Freq: Status: Active Protocol: Document 09/22/23 10:33 SAK (Rec: 09/22/23 12:32 [facility] [id number]) OP Gait Assessment Gait Gait Assistance Required: Independent Assistive Devices Assistive Device Straight Cane,4 Wheeled Walker Gait Deviations General Gait Pattern Decreased Stride Length, Decreased Feet Clearance Factors Limiting Gait Function Factors Limiting Gait Function Decreased Activity Tolerance, Decreased Strength Stair Climbing Evaluation Evaluation Level of Assist On Stairs Standby Assistance Devices Stair Climbing Assistive Devices Straight Cane,Left Railing Technique/Endurance Stair Climbing Direction Ascend and Descend Stair Climbing Technique Step to Step PT-OP-J Posture/Palpation/Skin Start: 09/21/23 16:22 Freq: Status: Active Protocol: Document 09/22/23 10:33 SAK (Rec: 09/22/23 12:32 [facility] [id number]) Posture Evaluation Position Standing Evaluation View Lateral Head/C-Spine Posture Forward Head T-Spine Posture Increased Kyphosis L-Spine Posture Flattened PT-OP-K Range of Motion Start: 09/21/23 16:22 Freq: Status: Active Protocol: Document 09/22/23 10:33 SAK (Rec: 09/22/23 12:32 SAK [id number]) Lumbar Spine Range of Motion Lumbar Spine Active Flexion 20 Hip Goniometric Range of Motion Hip prabha Hip ROM WFL No Knee Goniometric Range of Motion Knee prabha Knee ROM WFL Yes Comments except lacking terminal extension right knee -8 Knee ROM Limitations Knee ROM Limitations Muscle Weakness Ankle and Foot Goniometric Range of Motion Ankle and Foot prabha Ankle/Foot ROM WFL Yes PT-OP-M Strength Start: 09/21/23 16:22 Freq: Status: Active Protocol: Document 09/22/23 10:33 [facility] (Rec: 09/22/23 12:32 [facility] [id number]) Trunk Strength Trunk Manual Muscle Testing Flexion 3+ Fair+ Extension 3+ Fair+ Hip Strength Hip Manual Muscle Testing prabha Flexion (L2) 3+ Fair+ Extension (S1) 3- Fair- Abduction 3+ Fair+ Knee Strength Knee Manual Muscle Testing Right Flexion (S2) 4 Good Extension (L3) 3- Fair- Left Flexion (S2) 4+ Good+ Extension (L3) 4+ Good+ Ankle/Foot Strength Ankle and Foot Manual Muscle Testing Right Dorsiflexion (L4) 4 Good Plantarflexion (S1) 4 Good Left Dorsiflexion (L4) 5 Normal Plantarflexion (S1) 5 Normal PT-OP-Q Treatments Start: 09/21/23 16:22 Freq: Status: Active Protocol: Document 11/24/23 08:18 SP (Rec: 11/13/23 10:03 SP [id number]) Cardio Equipment Recumbent Stepper (Sci-Fit) Duration (Minutes) 10 Resistance 3 Seat Position 11 Other LEs only 56-60 RPMs, 1.46 miles Gym Equipment Shuttle Recovery Unilateral Squats Details cued soft knee ext, improved slower pacing Resistance 50# (2 navy) Shuttle Recovery Platform Stable Reps/Time 2x12 each LE Therapeutic Exercises Standing Exercises sit to stand with band Side bilateral Equipment Used UE prayer position held front Reps/Minutes 10x Comments cues for feet closer, gluteal activation, slower descend Gait Training Gait Activity stairs Description (wide top of rail need grab- home) Device Used cane and L railing (outside step down R/ up L) Level of Assistance CGA, cues Surface 7 stairs asc/desc outside: 5 L HR/R trek pole, 2 trek pole ( descend) Distance/Duration asc/desc Treatment Focus safety, good trek pole sequencing Comments cues for gluteal activation, tends to alternate stepping asc/desc added rail support square step, no rail and B trek poles side steps with good positioning poles support level Description front parkinglot, grass, curb Device Used trekking poles /c new tips Level of Assistance SBA Treatment Focus correct use Comments improved stability and proper sequencing with trek poles Neuro Re-Education Treatment Balance Activities obstacle course Details 2 hurdles, blue& green therapads, 4 step under mat Equipment gait belt initialy set B trek poles, rest CGA Reps/Duration 2 laps each (fwd) Comments CGA, CONTROL PANEL OPERATOR CRUDE UNIT prn, cues for distant focal point, upright posture, high knee for increased hip flexion which improves foot clearance of kaylan w/ repetition. PT-OP-R Modalities Start: 09/21/23 16:22 Freq: Status: Active Protocol: Document 09/22/23 10:33 SAK (Rec: 09/22/23 12:32 SAK [id number]) Hot Pack/Cold Pack Treatment Cold Pack Location lumbar spine Patient Position Sitting PT-OP-T Assessment and Plan Start: 09/21/23 16:22 Freq: Status: Active Protocol: Document 11/24/23 08:18 SP (Rec: 11/13/23 10:03 SP [id number]) Physical Therapy Assessment Goals Four Impairment gait dysfunction Impairment requires the use of a straight cane or walker for safe mobility Bead Trimmer Goal (LTG) Patient will be able to safely ambulate without an assistive device on level surfaces and with straight cane with outdoor, uneven ground and be able to ascend and descend stairs with step-over step pattern 10/20/23: now ambulating at home without cane, using cane for outdoor and community but hasn 't returned to all prior gait activities especially going to beach to walk due to uneven ground and fear of falling. LTG Duration 12/22/23 Three Impairment weakness Impairment LE weakness including lack of full right knee extension Short Term Goal (STG) Review current HEP and progress as appropriate for LE strengthening, especially focused on terminal knee extension righ 10/20/23: goal achieved STG Duration goal achieved Correction Goal (LTG) Patient to be independent and compliant with HEP and demonstrate 5/5 prabha LE strength to facilitate return to prior level of activity and safety with mobility LTG Duration 12/22/23 Two Impairment Activities in confidence balance scale Impairment 46 indicating low confidence in mobility Short Term Goal (STG) Improve ABC score to at least 60% 10/20/23: ABC score improved to 52% STG Duration 11/07/23 Bead Trimmer Goal (LTG) Improve ABC score to at least 75% as measure of improved confidence in mobility in her home and the community LTG Duration 12/22/23 One Impairment Belcher Balance score Impairment 37/52 indicating moderate fall risk Short Term Goal (STG) Improve Belcher balance score to at least 44/52 10/20/23: Belcher 41/52 STG Duration 11/07/23 Correction Goal (LTG) Improve Belcher balance score to at least 50/52 to reduce fall risk to low to allow patient to return to prior level of function safely LTG Duration 12/22/23 Assessment Summary Assessment Pt good effort to ther ex today. Cues for knee alignment during STS. Continued focus on stair mgt and outdoor uneven surface gait with increased confidence, stable no sways or LOB, cued glut drive ascend stairs. Improves foot clearance with cues for increased hip flexion during uneven kaylan stepping. Physical Therapy Plan Frequency and Duration Frequency of Treatment 2x/Week Duration of treatment (weeks) 12 Plan of Care Start Date 09/22/23 Plan of Care End Date 12/22/23 Therapeutic Interventions Therapeutic Interventions Balance Training,Gait Training ,Home Exercise Program,Manual Therapy,Patient/Caregiver Education,Self-Care/Home Management,Soft Tissue Mobilization,Taping, Therapeutic Activities, Therapeutic Exercises Modalities Cold Pack/Ice Massage,Electric Stimulation,Hot Packs, Ultrasound Next Visit Focus/Plan Next Note Type Treatment Note Next Visit Plan Due for PN Next tx with PT, 05/08. Issue HO for split squat Continue as PT POC: Continue gait training variable surfaces, longer distance, do obstacle course, further stairs, progress strengthening and balance.
--- NOTE | 2023-11-13 09:42 | PT.OTN ---
Current Diagnoses Spinal stenosis, lumbar region with neurogenic claudication (11/13/23) Other specified disorders of bone density and structure, unspecified site (11/13/23) Wedge compression fracture of fourth lumbar vertebra, initial encounter for closed fracture (11/13/23) Physical Therapy Treatment Note PT-OP-A Visit Information Start: 09/21/23 16:22 Freq: Status: Active Protocol: Document 11/13/23 09:02 SP (Rec: 11/13/23 10:03 SP [id number]) Out-Patient Physical Therapy Visit Information Visit Information Visit Type Treatment Note Visit Note 15 appts post eval, PN 11/24/23 appt. Visit Start Time 09:02 Visit Stop Time 09:42 Visit Number 15 Number of RAILWAY SWITCH OPERATOR Visits 1 Evaluation Information Evaluation Date 09/22/23 Precautions Precautions High fear of falling, history L1 compression fracture PT-OP-B Current Condition Start: 09/21/23 16:22 Freq: Status: Active Protocol: Document 11/11/23 09:03 SAK (Rec: 11/11/23 09:44 SAK [id number]) Current Condition History of Current Condition Onset Date 04/20/24 Current Complaints weakness, back pain History of Current Condition compression fracture L1 when fell backward onto gravel going up stairs. Couldn't get up by herself. Son assisted her up and to her house. She just thought she bruised her back, couldn't get into see her primary physician. Went to walk in clinic. Diagnosed with L1 compression fracture. Referred to see Dr. Fair; had second x-ray at [facility]. Told to go home and take it easy and come back in 6 weeks. Fell again going into bank, couldn't feel right knee. Then stayed at home per doctor's recommendation and layed around, using a walker. Then went to [facility] due to hematuria, diagnosed with hemmorrhoid. Fell again stepping into shower wearing socks, then started taking sponge baths. Then didn't trust herself to do anything, fell again not being able to feel her knees and just dropped. Finally diagnosed with UTI, in hospital x 4 days . Feels she has lost a lot of strength. Practicing steps at hospital, fell as she started to descend due to losing balance. Then transferred to care facility in wheelchair or bed most of the time except with PT, states got weaker. Fell at care center as well due to unlocked chair. Had Home Health PT At this time back pain minimal, c/o weakness and fear of falling. Has been doing Home Health, now discharged. C/o weakness right greater than left. Prior Treatments and Tests x-ray: L1 compression fracture MRI: L3-L4: The disc height and disk signal are relatively well-preserved. Mild to moderate disc bulge is seen, with a central disc protrusion. At least moderate facet hypertrophy is seen. Associated hypertrophy of the ligamentum flavum can be seen. Fluid is seen within the facet joints themselves. There is moderate to severe bilateral neural foraminal narrowing seen, with an associated a degree of compression seen upon the exiting nerve roots. At least moderate central canal narrowing is seen. L4-L5: The disc height and disk signal are relatively well-preserved. Mild generalized disc bulge is seen. Moderate facet joint hypertrophy is seen. There is mild-to- moderate right-sided and no left-sided neural foraminal narrowing. No central canal narrowing is seen. L5-S1: At least moderate loss of disc height is seen. Mild to moderate disc bulge is seen, which is eccentric to the left. Mild to moderate facet hypertrophy is seen. No significant neural foraminal or central canal narrowing can be seen. PT-OP-C Subjective Start: 09/21/23 16:22 Freq: Status: Active Protocol: Document 11/13/23 09:02 SP (Rec: 11/13/23 10:03 SP [id number]) OP-PT Subjective Patient Comments Patient Comments Pt reports walks around house no problems, outside gravel and grass feed chickens and modified dance. She reports uses her prabha walking sticks level at school and son's property uneven ground good weather days no problems, has cane to use but only when needed community, eg store. She stated used to go to the beach but hasn't since hurt her back. Pt brought in packet about Orthopedic surgery information for referencing from conversation last tx. PT-OP-D Balance Start: 09/21/23 16:22 Freq: Status: Active Protocol: Document 09/22/23 10:33 SAK (Rec: 09/22/23 12:32 SAK [id number]) OP-PT Balance Assessment Sitting Balance Static Sitting Balance Ability Normal Dynamic Sitting Balance Ability Normal Balance Tests Belcher Balance Test Belcher Balance Test Score 38 Belcher Balance Assessment Evaluation Sitting to Standing Ability Independent w/out Hands Unsupported Stance Safely- 2 minutes Sitting Unsupported, Feet on Floor Safely- 2 minutes Standing to Sitting Ability Assist, Control w/Hands Transfer Ability Safely, Hand Use Unsupported Stance- Eyes Closed Supervision, 10 seconds Unsupported Stance- Eyes Open Supervision to maintain Reaching Forward Standing Safely, 5 inches Pick- Up Object From Floor Supervision Look Behind Shoulder - Standing Shifts Weight Well Turning 360 Degrees Supervision/Verbal Cues Unsupported Stance, Alternating Feet on 4 Steps w/Supervision Stair Unsupported Tandem Stance Balance Lost- Step/Stand Unilateral Leg Stance Unable,assist to not fall Total Score Belcher Total Score (out of 56 points) 37 Tinetti Balance Assessment Sitting Balance Sitting Balance Steady, safe Scoring and Interpretation Tinetti Composite Score (points) 1 Squires Fall Scale Copyright Permission PT-OP-E Functional Tests Start: 09/21/23 16:22 Freq: Status: Active Protocol: Document 09/22/23 10:33 [facility] (Rec: 09/22/23 12:32 [facility] [id number]) Functional Tests 2 Minute Walk Test Distance 75 Five Times Sit to Stand Test Score 21 Comments UE use PT-OP-F Manual Assessment Start: 09/21/23 16:22 Freq: Status: Active Protocol: Document 09/22/23 10:33 [facility] (Rec: 09/22/23 12:32 [facility] [id number]) Manual Assessments Soft Tissue Assessment Soft Tissue Mobility Assessment TTP lumbar spine with inc soft tissue tightness PT-OP-G Mobility & Gait Start: 09/21/23 16:22 Freq: Status: Active Protocol: Document 09/22/23 10:33 [facility] (Rec: 09/22/23 12:32 [facility] [id number]) OP Gait Assessment Gait Gait Assistance Required: Independent Assistive Devices Assistive Device Straight Cane,4 Wheeled Walker Gait Deviations General Gait Pattern Decreased Stride Length, Decreased Feet Clearance Factors Limiting Gait Function Factors Limiting Gait Function Decreased Activity Tolerance, Decreased Strength Stair Climbing Evaluation Evaluation Level of Assist On Stairs Standby Assistance Devices Stair Climbing Assistive Devices Straight Cane,Left Railing Technique/Endurance Stair Climbing Direction Ascend and Descend Stair Climbing Technique Step to Step PT-OP-J Posture/Palpation/Skin Start: 09/21/23 16:22 Freq: Status: Active Protocol: Document 09/22/23 10:33 SAK (Rec: 09/22/23 12:32 SAK [id number]) Posture Evaluation Position Standing Evaluation View Lateral Head/C-Spine Posture Forward Head T-Spine Posture Increased Kyphosis L-Spine Posture Flattened PT-OP-K Range of Motion Start: 09/21/23 16:22 Freq: Status: Active Protocol: Document 09/22/23 10:33 SAK (Rec: 09/22/23 12:32 SAK [id number]) Lumbar Spine Range of Motion Lumbar Spine Active Flexion 20 Hip Goniometric Range of Motion Hip prabha Hip ROM WFL No Knee Goniometric Range of Motion Knee prabha Knee ROM WFL Yes Comments except lacking terminal extension right knee -8 Knee ROM Limitations Knee ROM Limitations Muscle Weakness Ankle and Foot Goniometric Range of Motion Ankle and Foot prabha Ankle/Foot ROM WFL Yes PT-OP-M Strength Start: 09/21/23 16:22 Freq: Status: Active Protocol: Document 09/22/23 10:33 [facility] (Rec: 09/22/23 12:32 [facility] [id number]) Trunk Strength Trunk Manual Muscle Testing Flexion 3+ Fair+ Extension 3+ Fair+ Hip Strength Hip Manual Muscle Testing prabha Flexion (L2) 3+ Fair+ Extension (S1) 3- Fair- Abduction 3+ Fair+ Knee Strength Knee Manual Muscle Testing Right Flexion (S2) 4 Good Extension (L3) 3- Fair- Left Flexion (S2) 4+ Good+ Extension (L3) 4+ Good+ Ankle/Foot Strength Ankle and Foot Manual Muscle Testing Right Dorsiflexion (L4) 4 Good Plantarflexion (S1) 4 Good Left Dorsiflexion (L4) 5 Normal Plantarflexion (S1) 5 Normal PT-OP-Q Treatments Start: 09/21/23 16:22 Freq: Status: Active Protocol: Document 11/13/23 09:02 SP (Rec: 11/13/23 10:03 SP [id number]) Cardio Equipment Recumbent Stepper (Sci-Fit) Duration (Minutes) 10 Resistance 3 Seat Position 11 Other LEs only 56-60 RPMs, 1.46 miles Gym Equipment Shuttle Recovery Unilateral Squats Details cued soft knee ext, improved slower pacing Resistance 50# (2 navy) Shuttle Recovery Platform Stable Reps/Time 2x12 each LE Therapeutic Exercises Standing Exercises sit to stand with band Side bilateral Equipment Used UE prayer position held front Reps/Minutes 10x Comments cues for feet closer, gluteal activation, slower descend Gait Training Gait Activity stairs Description (wide top of rail need grab- home) Device Used cane and L railing (outside step down R/ up L) Level of Assistance CGA, cues Surface 7 stairs asc/desc outside: 5 L HR/R trek pole, 2 trek pole ( descend) Distance/Duration asc/desc Treatment Focus safety, good trek pole sequencing Comments cues for gluteal activation, tends to alternate stepping asc/desc added rail support square step, no rail and B trek poles side steps with good positioning poles support level Description front parkinglot, grass, curb Device Used trekking poles /c new tips Level of Assistance SBA Treatment Focus correct use Comments improved stability and proper sequencing with trek poles Neuro Re-Education Treatment Balance Activities obstacle course Details 2 hurdles, blue& green therapads, 4 step under mat Equipment gait belt initialy set B trek poles, rest CGA Reps/Duration 2 laps each (fwd) Comments CGA, RADIOLOGY SPECIALIST prn, cues for distant focal point, upright posture, high knee for increased hip flexion which improves foot clearance of kaylan w/ repetition. PT-OP-R Modalities Start: 09/21/23 16:22 Freq: Status: Active Protocol: Document 09/22/23 10:33 SAK (Rec: 09/22/23 12:32 SAK [id number]) Hot Pack/Cold Pack Treatment Cold Pack Location lumbar spine Patient Position Sitting PT-OP-T Assessment and Plan Start: 09/21/23 16:22 Freq: Status: Active Protocol: Document 11/13/23 09:02 [email or web address] (Rec: 11/13/23 10:03 SP [id number]) Physical Therapy Assessment Goals Four Impairment gait dysfunction Impairment requires the use of a straight cane or walker for safe mobility Store Facility Technician Goal (LTG) Patient will be able to safely ambulate without an assistive device on level surfaces and with straight cane with outdoor, uneven ground and be able to ascend and descend stairs with step-over step pattern 10/20/23: now ambulating at home without cane, using cane for outdoor and community but hasn 't returned to all prior gait activities especially going to beach to walk due to uneven ground and fear of falling. LTG Duration 12/22/23 Three Impairment weakness Impairment LE weakness including lack of full right knee extension Short Term Goal (STG) Review current HEP and progress as appropriate for LE strengthening, especially focused on terminal knee extension righ 10/20/23: goal achieved STG Duration goal achieved Store Facility Technician Goal (LTG) Patient to be independent and compliant with HEP and demonstrate 5/5 prabha LE strength to facilitate return to prior level of activity and safety with mobility LTG Duration 12/22/23 Two Impairment Activities in confidence balance scale Impairment 46 indicating low confidence in mobility Short Term Goal (STG) Improve ABC score to at least 60% 10/20/23: ABC score improved to 52% STG Duration 11/07/23 Residential Goal (LTG) Improve ABC score to at least 75% as measure of improved confidence in mobility in her home and the community LTG Duration 12/22/23 One Impairment Belcher Balance score Impairment 37/52 indicating moderate fall risk Short Term Goal (STG) Improve Belcher balance score to at least 44/52 10/20/23: Belcher 41/52 STG Duration 11/07/23 Store Facility Technician Goal (LTG) Improve Belcher balance score to at least 50/52 to reduce fall risk to low to allow patient to return to prior level of function safely LTG Duration 12/22/23 Assessment Summary Assessment Pt Physical Therapy Plan Frequency and Duration Frequency of Treatment 2x/Week Duration of treatment (weeks) 12 Plan of Care Start Date 09/22/23 Plan of Care End Date 12/22/23 Therapeutic Interventions Therapeutic Interventions Balance Training,Gait Training ,Home Exercise Program,Manual Therapy,Patient/Caregiver Education,Self-Care/Home Management,Soft Tissue Mobilization,Taping, Therapeutic Activities, Therapeutic Exercises Modalities Cold Pack/Ice Massage,Electric Stimulation,Hot Packs, Ultrasound Next Visit Focus/Plan Next Note Type Treatment Note Next Visit Plan Due for PN Next tx with PT, 05/08. Issue HO for split squat Continue as PT POC: Continue gait training variable surfaces, longer distance, do obstacle course, further stairs, progress strengthening and balance.
--- NOTE | 2023-11-17 11:21 | PT.OTN ---
Current Diagnoses Spinal stenosis, lumbar region with neurogenic claudication (11/17/23) Other specified disorders of bone density and structure, unspecified site (11/17/23) Wedge compression fracture of fourth lumbar vertebra, initial encounter for closed fracture (11/17/23) Physical Therapy Treatment Note PT-OP-A Visit Information Start: 09/21/23 16:22 Freq: Status: Active Protocol: Document 11/17/23 10:33 SP (Rec: 11/17/23 11:22 SP [id number]) Out-Patient Physical Therapy Visit Information Visit Information Visit Type Treatment Note Visit Note 16 appts post eval, PN 11/24/23 appt POC 12/22/23 appt. Visit Start Time 10:33 Visit Stop Time 11:21 Visit Number 16 Number of IMMIGRATION PARALEGAL Visits 2 Evaluation Information Evaluation Date 09/22/23 Precautions Precautions High fear of falling, history L1 compression fracture PT-OP-B Current Condition Start: 09/21/23 16:22 Freq: Status: Active Protocol: Document 11/11/23 09:03 SAK (Rec: 11/11/23 09:44 SAK [id number]) Current Condition History of Current Condition Onset Date 04/20/24 Current Complaints weakness, back pain History of Current Condition compression fracture L1 when fell backward onto gravel going up stairs. Couldn't get up by herself. Son assisted her up and to her house. She just thought she bruised her back, couldn't get into see her primary physician. Went to walk in clinic. Diagnosed with L1 compression fracture. Referred to see Dr. Fair; had second x-ray at [facility]. Told to go home and take it easy and come back in 6 weeks. Fell again going into bank, couldn't feel right knee. Then stayed at home per doctor's recommendation and layed around, using a walker. Then went to [facility] due to hematuria, diagnosed with hemmorrhoid. Fell again stepping into shower wearing socks, then started taking sponge baths. Then didn't trust herself to do anything, fell again not being able to feel her knees and just dropped. Finally diagnosed with UTI, in hospital x 4 days . Feels she has lost a lot of strength. Practicing steps at hospital, fell as she started to descend due to losing balance. Then transferred to care facility in wheelchair or bed most of the time except with PT, states got weaker. Fell at care center as well due to unlocked chair. Had Home Health PT At this time back pain minimal, c/o weakness and fear of falling. Has been doing Home Health, now discharged. C/o weakness right greater than left. Prior Treatments and Tests x-ray: L1 compression fracture MRI: L3-L4: The disc height and disk signal are relatively well-preserved. Mild to moderate disc bulge is seen, with a central disc protrusion. At least moderate facet hypertrophy is seen. Associated hypertrophy of the ligamentum flavum can be seen. Fluid is seen within the facet joints themselves. There is moderate to severe bilateral neural foraminal narrowing seen, with an associated a degree of compression seen upon the exiting nerve roots. At least moderate central canal narrowing is seen. L4-L5: The disc height and disk signal are relatively well-preserved. Mild generalized disc bulge is seen. Moderate facet joint hypertrophy is seen. There is mild-to- moderate right-sided and no left-sided neural foraminal narrowing. No central canal narrowing is seen. L5-S1: At least moderate loss of disc height is seen. Mild to moderate disc bulge is seen, which is eccentric to the left. Mild to moderate facet hypertrophy is seen. No significant neural foraminal or central canal narrowing can be seen. PT-OP-C Subjective Start: 09/21/23 16:22 Freq: Status: Active Protocol: Document 11/17/23 10:33 SP (Rec: 11/17/23 11:22 SP [id number]) OP-PT Subjective Patient Comments Patient Comments Pt arrived with note from Dr Florence office with continued referral for PT. Pt stated discussed with Dr Corrigan that didn't have surgery as referred to Dr Stratton and PT is helping. She is considering calling Dr Stratton and setting up appt to discuss if thinks still need to have surgery, concerned will irritate what has gained in PT. She reports was able hip hinge/crouch down to clean floor of shower and antoine, also picker feeder items off floor. Is challenged getting bedding on opp side against wall but ok on stomach. PT-OP-D Balance Start: 09/21/23 16:22 Freq: Status: Active Protocol: Document 09/22/23 10:33 SAK (Rec: 09/22/23 12:32 SAK [id number]) OP-PT Balance Assessment Sitting Balance Static Sitting Balance Ability Normal Dynamic Sitting Balance Ability Normal Balance Tests Belcher Balance Test Belcher Balance Test Score 38 Belcher Balance Assessment Evaluation Sitting to Standing Ability Independent w/out Hands Unsupported Stance Safely- 2 minutes Sitting Unsupported, Feet on Floor Safely- 2 minutes Standing to Sitting Ability Assist, Control w/Hands Transfer Ability Safely, Hand Use Unsupported Stance- Eyes Closed Supervision, 10 seconds Unsupported Stance- Eyes Open Supervision to maintain Reaching Forward Standing Safely, 5 inches Pick- Up Object From Floor Supervision Look Behind Shoulder - Standing Shifts Weight Well Turning 360 Degrees Supervision/Verbal Cues Unsupported Stance, Alternating Feet on 4 Steps w/Supervision Stair Unsupported Tandem Stance Balance Lost- Step/Stand Unilateral Leg Stance Unable,assist to not fall Total Score Belcher Total Score (out of 56 points) 37 Tinetti Balance Assessment Sitting Balance Sitting Balance Steady, safe Scoring and Interpretation Tinetti Composite Score (points) 1 Squires Fall Scale Copyright Permission PT-OP-E Functional Tests Start: 09/21/23 16:22 Freq: Status: Active Protocol: Document 09/22/23 10:33 [facility] (Rec: 09/22/23 12:32 [facility] [id number]) Functional Tests 2 Minute Walk Test Distance 75 Five Times Sit to Stand Test Score 21 Comments UE use PT-OP-F Manual Assessment Start: 09/21/23 16:22 Freq: Status: Active Protocol: Document 09/22/23 10:33 [facility] (Rec: 09/22/23 12:32 [facility] [id number]) Manual Assessments Soft Tissue Assessment Soft Tissue Mobility Assessment TTP lumbar spine with inc soft tissue tightness PT-OP-G Mobility & Gait Start: 09/21/23 16:22 Freq: Status: Active Protocol: Document 09/22/23 10:33 [facility] (Rec: 09/22/23 12:32 [facility] [id number]) OP Gait Assessment Gait Gait Assistance Required: Independent Assistive Devices Assistive Device Straight Cane,4 Wheeled Walker Gait Deviations General Gait Pattern Decreased Stride Length, Decreased Feet Clearance Factors Limiting Gait Function Factors Limiting Gait Function Decreased Activity Tolerance, Decreased Strength Stair Climbing Evaluation Evaluation Level of Assist On Stairs Standby Assistance Devices Stair Climbing Assistive Devices Straight Cane,Left Railing Technique/Endurance Stair Climbing Direction Ascend and Descend Stair Climbing Technique Step to Step PT-OP-J Posture/Palpation/Skin Start: 09/21/23 16:22 Freq: Status: Active Protocol: Document 09/22/23 10:33 SAK (Rec: 09/22/23 12:32 SAK [id number]) Posture Evaluation Position Standing Evaluation View Lateral Head/C-Spine Posture Forward Head T-Spine Posture Increased Kyphosis L-Spine Posture Flattened PT-OP-K Range of Motion Start: 09/21/23 16:22 Freq: Status: Active Protocol: Document 09/22/23 10:33 SAK (Rec: 09/22/23 12:32 SAK [id number]) Lumbar Spine Range of Motion Lumbar Spine Active Flexion 20 Hip Goniometric Range of Motion Hip prabha Hip ROM WFL No Knee Goniometric Range of Motion Knee prabha Knee ROM WFL Yes Comments except lacking terminal extension right knee -8 Knee ROM Limitations Knee ROM Limitations Muscle Weakness Ankle and Foot Goniometric Range of Motion Ankle and Foot prabha Ankle/Foot ROM WFL Yes PT-OP-M Strength Start: 09/21/23 16:22 Freq: Status: Active Protocol: Document 09/22/23 10:33 SAK (Rec: 09/22/23 12:32 SAK [id number]) Trunk Strength Trunk Manual Muscle Testing Flexion 3+ Fair+ Extension 3+ Fair+ Hip Strength Hip Manual Muscle Testing prabha Flexion (L2) 3+ Fair+ Extension (S1) 3- Fair- Abduction 3+ Fair+ Knee Strength Knee Manual Muscle Testing Right Flexion (S2) 4 Good Extension (L3) 3- Fair- Left Flexion (S2) 4+ Good+ Extension (L3) 4+ Good+ Ankle/Foot Strength Ankle and Foot Manual Muscle Testing Right Dorsiflexion (L4) 4 Good Plantarflexion (S1) 4 Good Left Dorsiflexion (L4) 5 Normal Plantarflexion (S1) 5 Normal PT-OP-Q Treatments Start: 09/21/23 16:22 Freq: Status: Active Protocol: Document 11/17/23 10:33 SP (Rec: 11/17/23 11:22 SP [id number]) Cardio Equipment Recumbent Stepper (Sci-Fit) Duration (Minutes) 9 Resistance 3 Seat Position 11 Other LEs only 56-60 RPMs, 1.46 miles Gym Equipment Shuttle Recovery Unilateral Squats Details cued soft knee ext, improved slower pacing Resistance 50# (2 navy) Shuttle Recovery Platform Stable Reps/Time 2x15 each LE Bilateral Squats Details cued not lock into ext, // BLEs Resistance 87# Shuttle Recovery Platform Stable Reps/Time x15 Sport Cord red Exercise Details f/b/lateral & forward/back step 4 step Reps/Duration 5 reps each Comments Cued eccentric control, CGMin A as needed 1st rep each direction eccentric control stability Therapeutic Activity Therapeutic Activity quadruped bedding on Name assimulation Comments quadruped on hands knees, walking across bed to opp corner to put on corner sheet. squat functional ADLs Comments cone ball transfer, mini squat picker feeder 1.5 -3.3 lb tball. Self-Care/Home Management Treatment Education Other Education Ed suggested calling Dr Stratton and ask if can have another meeting to discuss her response to PT with no pain in almost all PLOF activities, if feel still need of procedure. She wasn't aware during last appt of why attending and thus didn't absorb reasoning having. PT-OP-R Modalities Start: 09/21/23 16:22 Freq: Status: Active Protocol: Document 09/22/23 10:33 SAK (Rec: 09/22/23 12:32 SAK [id number]) Hot Pack/Cold Pack Treatment Cold Pack Location lumbar spine Patient Position Sitting PT-OP-T Assessment and Plan Start: 09/21/23 16:22 Freq: Status: Active Protocol: Document 11/17/23 10:33 SP (Rec: 11/17/23 11:22 SP [id number]) Physical Therapy Assessment Goals Four Impairment gait dysfunction Impairment requires the use of a straight cane or walker for safe mobility Longterm Goal (LTG) Patient will be able to safely ambulate without an assistive device on level surfaces and with straight cane with outdoor, uneven ground and be able to ascend and descend stairs with step-over step pattern 10/20/23: now ambulating at home without cane, using cane for outdoor and community but hasn 't returned to all prior gait activities especially going to beach to walk due to uneven ground and fear of falling. LTG Duration 12/22/23 Three Impairment weakness Impairment LE weakness including lack of full right knee extension Short Term Goal (STG) Review current HEP and progress as appropriate for LE strengthening, especially focused on terminal knee extension righ 10/20/23: goal achieved STG Duration goal achieved Shadowgraph Scale Operator Goal (LTG) Patient to be independent and compliant with HEP and demonstrate 5/5 prabha LE strength to facilitate return to prior level of activity and safety with mobility LTG Duration 12/22/23 Two Impairment Activities in confidence balance scale Impairment 46 indicating low confidence in mobility Short Term Goal (STG) Improve ABC score to at least 60% 10/20/23: ABC score improved to 52% STG Duration 11/07/23 Shadowgraph Scale Operator Goal (LTG) Improve ABC score to at least 75% as measure of improved confidence in mobility in her home and the community LTG Duration 12/22/23 One Impairment Belcher Balance score Impairment 37/52 indicating moderate fall risk Short Term Goal (STG) Improve Belcher balance score to at least 44/52 10/20/23: Belcher 41/52 STG Duration 11/07/23 Longterm Goal (LTG) Improve Belcher balance score to at least 50/52 to reduce fall risk to low to allow patient to return to prior level of function safely LTG Duration 12/22/23 Assessment Summary Assessment Pt responded well to strengthing equipement warm up . Progressed dynamic balance activities and assimulation squat and initiated quadruped vs on stomach putting fitted sheet over opp corner table/ bed for spinal alignment back support with improved squat motion hip hinge mechanics picker feeder items from floor for carryover home, and able to get on off table and quadruped crawling across table 3 point to done sheet on corner table vs normally home on stomach, states better support on back and suprised can get on knees, didn't think to do will incorporate home off knees. IMMIGRATION [place]GAL discussed calling Dr Stratton if feel want to further discuss for better understanding if still feel need for surgical procedure to LS, see HOs pt provided from physican for kyphoplasty vs vertbroplasty if they feel still needed with improved pnfree since started PT. Physical Therapy Plan Frequency and Duration Frequency of Treatment 2x/Week Duration of treatment (weeks) 12 Plan of Care Start Date 09/22/23 Plan of Care End Date 12/22/23 Therapeutic Interventions Therapeutic Interventions Balance Training,Gait Training ,Home Exercise Program,Manual Therapy,Patient/Caregiver Education,Self-Care/Home Management,Soft Tissue Mobilization,Taping, Therapeutic Activities, Therapeutic Exercises Modalities Cold Pack/Ice Massage,Electric Stimulation,Hot Packs, Ultrasound Next Visit Focus/Plan Next Note Type Treatment Note Next Visit Plan Due for PN Next tx with PT, 05/08. Issue HO for split squat Continue as PT POC: Continue gait training variable surfaces, longer distance, do obstacle course, further stairs, progress strengthening and balance.
--- NOTE | 2023-11-20 12:31 | PT.OTN ---
Current Diagnoses Spinal stenosis, lumbar region with neurogenic claudication (11/20/23) Other specified disorders of bone density and structure, unspecified site (11/20/23) Wedge compression fracture of fourth lumbar vertebra, initial encounter for closed fracture (11/20/23) Physical Therapy Treatment Note PT-OP-A Visit Information Start: 09/21/23 16:22 Freq: Status: Active Protocol: Document 11/20/23 11:23 NBM (Rec: 11/20/23 12:30 NBM [id number]) Out-Patient Physical Therapy Visit Information Visit Information Visit Type Treatment Note Visit Note 16 appts post eval, PN 11/24/23 appt POC 12/22/23 appt. Visit Start Time 11:25 Visit Stop Time 12:10 Visit Number 17 Number of EMPLOYEE RELATIONS ASSISTANT Visits 3 Evaluation Information Evaluation Date 09/22/23 Precautions Precautions High fear of falling, history L1 compression fracture PT-OP-B Current Condition Start: 09/21/23 16:22 Freq: Status: Active Protocol: Document 11/11/23 09:03 SAK (Rec: 11/11/23 09:44 SAK [id number]) Current Condition History of Current Condition Onset Date 04/20/24 Current Complaints weakness, back pain History of Current Condition compression fracture L1 when fell backward onto gravel going up stairs. Couldn't get up by herself. Son assisted her up and to her house. She just thought she bruised her back, couldn't get into see her primary physician. Went to walk in clinic. Diagnosed with L1 compression fracture. Referred to see Dr. Fair; had second x-ray at [facility]. Told to go home and take it easy and come back in 6 weeks. Fell again going into bank, couldn't feel right knee. Then stayed at home per doctor's recommendation and layed around, using a walker. Then went to [facility] due to hematuria, diagnosed with hemmorrhoid. Fell again stepping into shower wearing socks, then started taking sponge baths. Then didn't trust herself to do anything, fell again not being able to feel her knees and just dropped. Finally diagnosed with UTI, in hospital x 4 days . Feels she has lost a lot of strength. Practicing steps at hospital, fell as she started to descend due to losing balance. Then transferred to care facility in wheelchair or bed most of the time except with PT, states got weaker. Fell at care center as well due to unlocked chair. Had Home Health PT At this time back pain minimal, c/o weakness and fear of falling. Has been doing Home Health, now discharged. C/o weakness right greater than left. Prior Treatments and Tests x-ray: L1 compression fracture MRI: L3-L4: The disc height and disk signal are relatively well-preserved. Mild to moderate disc bulge is seen, with a central disc protrusion. At least moderate facet hypertrophy is seen. Associated hypertrophy of the ligamentum flavum can be seen. Fluid is seen within the facet joints themselves. There is moderate to severe bilateral neural foraminal narrowing seen, with an associated a degree of compression seen upon the exiting nerve roots. At least moderate central canal narrowing is seen. L4-L5: The disc height and disk signal are relatively well-preserved. Mild generalized disc bulge is seen. Moderate facet joint hypertrophy is seen. There is mild-to- moderate right-sided and no left-sided neural foraminal narrowing. No central canal narrowing is seen. L5-S1: At least moderate loss of disc height is seen. Mild to moderate disc bulge is seen, which is eccentric to the left. Mild to moderate facet hypertrophy is seen. No significant neural foraminal or central canal narrowing can be seen. PT-OP-C Subjective Start: 09/21/23 16:22 Freq: Status: Active Protocol: Document 11/20/23 11:23 NB (Rec: 11/20/23 12:30 NB [id number]) OP-PT Subjective Patient Comments Patient Comments Jazlyn reports she was able to get on her knees on a soft place and she was surprised she was able to stay on them for awhile. She was able to put corner sheet on at home after simulating in PT last visit. R leg is not as strong as L. She's walking around better with physical therapy without pain. She plans to get clarification from Dr. Stratton. Patient Reported Progress Improving PT-OP-D Balance Start: 09/21/23 16:22 Freq: Status: Active Protocol: Document 09/22/23 10:33 SAK (Rec: 09/22/23 12:32 SAK [id number]) OP-PT Balance Assessment Sitting Balance Static Sitting Balance Ability Normal Dynamic Sitting Balance Ability Normal Balance Tests Belcher Balance Test Belcher Balance Test Score 38 Belcher Balance Assessment Evaluation Sitting to Standing Ability Independent w/out Hands Unsupported Stance Safely- 2 minutes Sitting Unsupported, Feet on Floor Safely- 2 minutes Standing to Sitting Ability Assist, Control w/Hands Transfer Ability Safely, Hand Use Unsupported Stance- Eyes Closed Supervision, 10 seconds Unsupported Stance- Eyes Open Supervision to maintain Reaching Forward Standing Safely, 5 inches Pick- Up Object From Floor Supervision Look Behind Shoulder - Standing Shifts Weight Well Turning 360 Degrees Supervision/Verbal Cues Unsupported Stance, Alternating Feet on 4 Steps w/Supervision Stair Unsupported Tandem Stance Balance Lost- Step/Stand Unilateral Leg Stance Unable,assist to not fall Total Score Belcher Total Score (out of 56 points) 37 Tinetti Balance Assessment Sitting Balance Sitting Balance Steady, safe Scoring and Interpretation Tinetti Composite Score (points) 1 Squires Fall Scale Copyright Permission PT-OP-E Functional Tests Start: 09/21/23 16:22 Freq: Status: Active Protocol: Document 09/22/23 10:33 [facility] (Rec: 09/22/23 12:32 [facility] [id number]) Functional Tests 2 Minute Walk Test Distance 75 Five Times Sit to Stand Test Score 21 Comments UE use PT-OP-F Manual Assessment Start: 09/21/23 16:22 Freq: Status: Active Protocol: Document 09/22/23 10:33 [facility] (Rec: 09/22/23 12:32 [facility] [id number]) Manual Assessments Soft Tissue Assessment Soft Tissue Mobility Assessment TTP lumbar spine with inc soft tissue tightness PT-OP-G Mobility & Gait Start: 09/21/23 16:22 Freq: Status: Active Protocol: Document 09/22/23 10:33 [facility] (Rec: 09/22/23 12:32 [facility] [id number]) OP Gait Assessment Gait Gait Assistance Required: Independent Assistive Devices Assistive Device Straight Cane,4 Wheeled Walker Gait Deviations General Gait Pattern Decreased Stride Length, Decreased Feet Clearance Factors Limiting Gait Function Factors Limiting Gait Function Decreased Activity Tolerance, Decreased Strength Stair Climbing Evaluation Evaluation Level of Assist On Stairs Standby Assistance Devices Stair Climbing Assistive Devices Straight Cane,Left Railing Technique/Endurance Stair Climbing Direction Ascend and Descend Stair Climbing Technique Step to Step PT-OP-J Posture/Palpation/Skin Start: 09/21/23 16:22 Freq: Status: Active Protocol: Document 09/22/23 10:33 SAK (Rec: 09/22/23 12:32 SAK [id number]) Posture Evaluation Position Standing Evaluation View Lateral Head/C-Spine Posture Forward Head T-Spine Posture Increased Kyphosis L-Spine Posture Flattened PT-OP-K Range of Motion Start: 09/21/23 16:22 Freq: Status: Active Protocol: Document 09/22/23 10:33 SAK (Rec: 09/22/23 12:32 SAK [id number]) Lumbar Spine Range of Motion Lumbar Spine Active Flexion 20 Hip Goniometric Range of Motion Hip prabha Hip ROM WFL No Knee Goniometric Range of Motion Knee prabha Knee ROM WFL Yes Comments except lacking terminal extension right knee -8 Knee ROM Limitations Knee ROM Limitations Muscle Weakness Ankle and Foot Goniometric Range of Motion Ankle and Foot prabha Ankle/Foot ROM WFL Yes PT-OP-M Strength Start: 09/21/23 16:22 Freq: Status: Active Protocol: Document 09/22/23 10:33 [facility] (Rec: 09/22/23 12:32 [facility] [id number]) Trunk Strength Trunk Manual Muscle Testing Flexion 3+ Fair+ Extension 3+ Fair+ Hip Strength Hip Manual Muscle Testing prabha Flexion (L2) 3+ Fair+ Extension (S1) 3- Fair- Abduction 3+ Fair+ Knee Strength Knee Manual Muscle Testing Right Flexion (S2) 4 Good Extension (L3) 3- Fair- Left Flexion (S2) 4+ Good+ Extension (L3) 4+ Good+ Ankle/Foot Strength Ankle and Foot Manual Muscle Testing Right Dorsiflexion (L4) 4 Good Plantarflexion (S1) 4 Good Left Dorsiflexion (L4) 5 Normal Plantarflexion (S1) 5 Normal PT-OP-Q Treatments Start: 09/21/23 16:22 Freq: Status: Active Protocol: Document 11/20/23 11:23 NBM (Rec: 11/20/23 12:30 NBM [id number]) Cardio Equipment Recumbent Stepper (Sci-Fit) Duration (Minutes) 10 Resistance 3 Seat Position 11 Other LEs only 56-60 RPMs, 60-70 RPMs last 1.5 min, 1.46 miles Gym Equipment Sport Cord red Exercise Details 1. f/b/lateral 2. fwd/back 4 step 3. fwd/back 6 step Reps/Duration 1. 5 x5 steps ea 2. x10 ea no UE support 3. x10 ea w/ thigh support Comments Cued eccentric control, CGMin A as needed 1st rep each direction eccentric control stability; cues w/ lateral step for L neutral foot position Therapeutic Activity Therapeutic Activity squat functional ADLs Name 1.5 lb therapyball Reps/Minutes x10 Comments cone ball transfer w/ mini squat vegetable picker/put down > floor transfer w/ squat w/ pivot Neuro Re-Education Treatment Balance Activities hurdles Details 6 x 6 hurdles 1. without UE support 2. w/ SPC in LUE Surface firm Equipment 10 ft X 2 ea PT-OP-R Modalities Start: 09/21/23 16:22 Freq: Status: Active Protocol: Document 09/22/23 10:33 SAK (Rec: 09/22/23 12:32 SAK [id number]) Hot Pack/Cold Pack Treatment Cold Pack Location lumbar spine Patient Position Sitting PT-OP-T Assessment and Plan Start: 09/21/23 16:22 Freq: Status: Active Protocol: Document 11/20/23 11:23 NBM (Rec: 11/20/23 12:30 NBM [id number]) Physical Therapy Assessment Goals Four Impairment gait dysfunction Impairment requires the use of a straight cane or walker for safe mobility Perfect Bind Machine Operator Goal (LTG) Patient will be able to safely ambulate without an assistive device on level surfaces and with straight cane with outdoor, uneven ground and be able to ascend and descend stairs with step-over step pattern 10/20/23: now ambulating at home without cane, using cane for outdoor and community but hasn 't returned to all prior gait activities especially going to beach to walk due to uneven ground and fear of falling. LTG Duration 12/22/23 Three Impairment weakness Impairment LE weakness including lack of full right knee extension Short Term Goal (STG) Review current HEP and progress as appropriate for LE strengthening, especially focused on terminal knee extension righ 10/20/23: goal achieved STG Duration goal achieved Perfect Bind Machine Operator Goal (LTG) Patient to be independent and compliant with HEP and demonstrate 5/5 prabha LE strength to facilitate return to prior level of activity and safety with mobility LTG Duration 12/22/23 Two Impairment Activities in confidence balance scale Impairment 46 indicating low confidence in mobility Short Term Goal (STG) Improve ABC score to at least 60% 10/20/23: ABC score improved to 52% STG Duration 11/07/23 [facility] Goal (LTG) Improve ABC score to at least 75% as measure of improved confidence in mobility in her home and the community LTG Duration 12/22/23 One Impairment Belcher Balance score Impairment 37/52 indicating moderate fall risk Short Term Goal (STG) Improve Belcher balance score to at least 44/52 10/20/23: Belcher 41/52 STG Duration 11/07/23 [facility] Goal (LTG) Improve Belcher balance score to at least 50/52 to reduce fall risk to low to allow patient to return to prior level of function safely LTG Duration 12/22/23 Assessment Summary Assessment Treatment focus on LE strength , balance, and coordination. Jazlyn requires cues for hip hinge with squatting for floor 1.5# pickup and object placement. She demos improved mechanics w/ cueing and repetition. She is able to progress sports cord from 4/ step ups without UE support to 6 step ups with thigh support bilaterally and decreased apprehension. She requires one cue end of session for LLE circumduction compensation w/ 6 hurdles without UE support, and w/ SPC in LUE can perform stepover 2x6 but clips final kaylan on 2nd lap. Two rest breaks w/ water this session. Physical Therapy Plan Frequency and Duration Frequency of Treatment 2x/Week Duration of treatment (weeks) 12 Plan of Care Start Date 09/22/23 Plan of Care End Date 12/22/23 Therapeutic Interventions Therapeutic Interventions Balance Training,Gait Training ,Home Exercise Program,Manual Therapy,Patient/Caregiver Education,Self-Care/Home Management,Soft Tissue Mobilization,Taping, Therapeutic Activities, Therapeutic Exercises Modalities Cold Pack/Ice Massage,Electric Stimulation,Hot Packs, Ultrasound Next Visit Focus/Plan Next Note Type Treatment Note Next Visit Plan Due for PN Next tx with PT, 05/08. Issue HO for split squat Continue as PT POC: Continue gait training variable surfaces, longer distance, do obstacle course, further stairs, progress strengthening and balance.
--- NOTE | 2023-11-24 12:11 | PT.OTN ---
Current Diagnoses Spinal stenosis, lumbar region with neurogenic claudication (11/24/23) Other specified disorders of bone density and structure, unspecified site (11/24/23) Wedge compression fracture of fourth lumbar vertebra, initial encounter for closed fracture (11/24/23) Physical Therapy Treatment Note PT-OP-A Visit Information Start: 09/21/23 16:22 Freq: Status: Active Protocol: Document 11/24/23 11:18 [facility] (Rec: 11/24/23 12:10 [facility] [id number]) Out-Patient Physical Therapy Visit Information Visit Information Visit Type Treatment Note Visit Note 16 appts post eval, PN 11/24/23 appt POC 12/22/23 appt. Visit Start Time 11:18 Visit Number 18 Number of [employer] Visits 0 Precautions Precautions High fear of falling, history L1 compression fracture PT-OP-B Current Condition Start: 09/21/23 16:22 Freq: Status: Active Protocol: Document 11/11/23 09:03 [facility] (Rec: 11/11/23 09:44 [facility] [id number]) Current Condition History of Current Condition Onset Date 04/20/24 Current Complaints weakness, back pain History of Current Condition compression fracture L1 when fell backward onto gravel going up stairs. Couldn't get up by herself. Son assisted her up and to her house. She just thought she bruised her back, couldn't get into see her primary physician. Went to walk in clinic. Diagnosed with L1 compression fracture. Referred to see Dr. Fair; had second x-ray at [facility]. Told to go home and take it easy and come back in 6 weeks. Fell again going into bank, couldn't feel right knee. Then stayed at home per doctor's recommendation and layed around, using a walker. Then went to [facility] due to hematuria, diagnosed with hemmorrhoid. Fell again stepping into shower wearing socks, then started taking sponge baths. Then didn't trust herself to do anything, fell again not being able to feel her knees and just dropped. Finally diagnosed with UTI, in hospital x 4 days . Feels she has lost a lot of strength. Practicing steps at hospital, fell as she started to descend due to losing balance. Then transferred to care facility in wheelchair or bed most of the time except with PT, states got weaker. Fell at care center as well due to unlocked chair. Had Home Health PT At this time back pain minimal, c/o weakness and fear of falling. Has been doing Home Health, now discharged. C/o weakness right greater than left. Prior Treatments and Tests x-ray: L1 compression fracture MRI: L3-L4: The disc height and disk signal are relatively well-preserved. Mild to moderate disc bulge is seen, with a central disc protrusion. At least moderate facet hypertrophy is seen. Associated hypertrophy of the ligamentum flavum can be seen. Fluid is seen within the facet joints themselves. There is moderate to severe bilateral neural foraminal narrowing seen, with an associated a degree of compression seen upon the exiting nerve roots. At least moderate central canal narrowing is seen. L4-L5: The disc height and disk signal are relatively well-preserved. Mild generalized disc bulge is seen. Moderate facet joint hypertrophy is seen. There is mild-to- moderate right-sided and no left-sided neural foraminal narrowing. No central canal narrowing is seen. L5-S1: At least moderate loss of disc height is seen. Mild to moderate disc bulge is seen, which is eccentric to the left. Mild to moderate facet hypertrophy is seen. No significant neural foraminal or central canal narrowing can be seen. PT-OP-C Subjective Start: 09/21/23 16:22 Freq: Status: Active Protocol: Document 11/24/23 11:18 [facility] (Rec: 11/24/23 12:10 [facility] [id number]) OP-PT Subjective Patient Comments Patient Comments Saw Dr. Corrigan who thought she had already had procedure with Dr. Stratton. Patient not sure about having spinal procedure because feels PT helping. Planning to consult with Dr. Stratton further. PT-OP-D Balance Start: 09/21/23 16:22 Freq: Status: Active Protocol: Document 09/22/23 10:33 [facility] (Rec: 09/22/23 12:32 [facility] [id number]) OP-PT Balance Assessment Sitting Balance Static Sitting Balance Ability Normal Dynamic Sitting Balance Ability Normal Balance Tests Belcher Balance Test Belcher Balance Test Score 38 Belcher Balance Assessment Evaluation Sitting to Standing Ability Independent w/out Hands Unsupported Stance Safely- 2 minutes Sitting Unsupported, Feet on Floor Safely- 2 minutes Standing to Sitting Ability Assist, Control w/Hands Transfer Ability Safely, Hand Use Unsupported Stance- Eyes Closed Supervision, 10 seconds Unsupported Stance- Eyes Open Supervision to maintain Reaching Forward Standing Safely, 5 inches Pick- Up Object From Floor Supervision Look Behind Shoulder - Standing Shifts Weight Well Turning 360 Degrees Supervision/Verbal Cues Unsupported Stance, Alternating Feet on 4 Steps w/Supervision Stair Unsupported Tandem Stance Balance Lost- Step/Stand Unilateral Leg Stance Unable,assist to not fall Total Score Belcher Total Score (out of 56 points) 37 Tinetti Balance Assessment Sitting Balance Sitting Balance Steady, safe Scoring and Interpretation Tinetti Composite Score (points) 1 Squires Fall Scale Copyright Permission PT-OP-E Functional Tests Start: 09/21/23 16:22 Freq: Status: Active Protocol: Document 09/22/23 10:33 [facility] (Rec: 09/22/23 12:32 [facility] [id number]) Functional Tests 2 Minute Walk Test Distance 75 Five Times Sit to Stand Test Score 21 Comments UE use PT-OP-F Manual Assessment Start: 09/21/23 16:22 Freq: Status: Active Protocol: Document 09/22/23 10:33 [facility] (Rec: 09/22/23 12:32 [facility] [id number]) Manual Assessments Soft Tissue Assessment Soft Tissue Mobility Assessment TTP lumbar spine with inc soft tissue tightness PT-OP-G Mobility & Gait Start: 09/21/23 16:22 Freq: Status: Active Protocol: Document 09/22/23 10:33 [facility] (Rec: 09/22/23 12:32 [facility] [id number]) OP Gait Assessment Gait Gait Assistance Required: Independent Assistive Devices Assistive Device Straight Cane,4 Wheeled Walker Gait Deviations General Gait Pattern Decreased Stride Length, Decreased Feet Clearance Factors Limiting Gait Function Factors Limiting Gait Function Decreased Activity Tolerance, Decreased Strength Stair Climbing Evaluation Evaluation Level of Assist On Stairs Standby Assistance Devices Stair Climbing Assistive Devices Straight Cane,Left Railing Technique/Endurance Stair Climbing Direction Ascend and Descend Stair Climbing Technique Step to Step PT-OP-J Posture/Palpation/Skin Start: 09/21/23 16:22 Freq: Status: Active Protocol: Document 09/22/23 10:33 [facility] (Rec: 09/22/23 12:32 [facility] [id number]) Posture Evaluation Position Standing Evaluation View Lateral Head/C-Spine Posture Forward Head T-Spine Posture Increased Kyphosis L-Spine Posture Flattened PT-OP-K Range of Motion Start: 09/21/23 16:22 Freq: Status: Active Protocol: Document 09/22/23 10:33 [facility] (Rec: 09/22/23 12:32 [facility] [id number]) Lumbar Spine Range of Motion Lumbar Spine Active Flexion 20 Hip Goniometric Range of Motion Hip prabha Hip ROM WFL No Knee Goniometric Range of Motion Knee prabha Knee ROM WFL Yes Comments except lacking terminal extension right knee -8 Knee ROM Limitations Knee ROM Limitations Muscle Weakness Ankle and Foot Goniometric Range of Motion Ankle and Foot prabha Ankle/Foot ROM WFL Yes PT-OP-M Strength Start: 09/21/23 16:22 Freq: Status: Active Protocol: Document 09/22/23 10:33 [facility] (Rec: 09/22/23 12:32 [facility] [id number]) Trunk Strength Trunk Manual Muscle Testing Flexion 3+ Fair+ Extension 3+ Fair+ Hip Strength Hip Manual Muscle Testing prabha Flexion (L2) 3+ Fair+ Extension (S1) 3- Fair- Abduction 3+ Fair+ Knee Strength Knee Manual Muscle Testing Right Flexion (S2) 4 Good Extension (L3) 3- Fair- Left Flexion (S2) 4+ Good+ Extension (L3) 4+ Good+ Ankle/Foot Strength Ankle and Foot Manual Muscle Testing Right Dorsiflexion (L4) 4 Good Plantarflexion (S1) 4 Good Left Dorsiflexion (L4) 5 Normal Plantarflexion (S1) 5 Normal PT-OP-Q Treatments Start: 09/21/23 16:22 Freq: Status: Active Protocol: Document 11/24/23 11:18 [facility] (Rec: 11/24/23 12:10 [facility] [id number]) Cardio Equipment Recumbent Stepper (Sci-Fit) Duration (Minutes) 10 Resistance 3 Seat Position 11 Other LEs only 56-60 RPMs, 60-70 RPMs last 1.5 min, 1.46 miles Gym Equipment Sport Cord red Exercise Details 1. f/b/lateral 2. fwd/back 4 step 3. fwd/back 6 step Reps/Duration 1. 5 x5 steps ea 2. x10 ea no UE support 3. x10 ea w/ thigh support Comments Cued eccentric control, CGMin A as needed 1st rep each direction eccentric control stability; cues w/ lateral step for L neutral foot position Gait Training Gait Activity outdoor Device Used none on level, cane for grass and stairs Level of Assistance CGA, cues Surface pavement, grass, stairs Distance/Duration 10 min Treatment Focus safety Comments level, incline, curb, stairs with railing, no railing, gravel Needed min assist on 2 stairs without railing Self-Care/Home Management Treatment Education Other Education Reviewed need to call Dr Stratton and ask if can have another meeting to discuss her response to PT with no pain in almost all PLOF activities, if feel still need of procedure. She wasn't aware during last appt of why attending and thus didn't absorb reasoning having. PT-OP-R Modalities Start: 09/21/23 16:22 Freq: Status: Active Protocol: Document 09/22/23 10:33 [facility] (Rec: 09/22/23 12:32 [facility] [id number]) Hot Pack/Cold Pack Treatment Cold Pack Location lumbar spine Patient Position Sitting PT-OP-T Assessment and Plan Start: 09/21/23 16:22 Freq: Status: Active Protocol: Document 11/24/23 11:18 [facility] (Rec: 11/24/23 12:10 [facility] [id number]) Physical Therapy Assessment Goals Four Impairment gait dysfunction Impairment requires the use of a straight cane or walker for safe mobility Technical Support Director Goal (LTG) Patient will be able to safely ambulate without an assistive device on level surfaces and with straight cane with outdoor, uneven ground and be able to ascend and descend stairs with step-over step pattern 10/20/23: now ambulating at home without cane, using cane for outdoor and community but hasn 't returned to all prior gait activities especially going to beach to walk due to uneven ground and fear of falling. LTG Duration 12/22/23 Three Impairment weakness Impairment LE weakness including lack of full right knee extension Short Term Goal (STG) Review current HEP and progress as appropriate for LE strengthening, especially focused on terminal knee extension righ 10/20/23: goal achieved STG Duration goal achieved Skilled Nursing Goal (LTG) Patient to be independent and compliant with HEP and demonstrate 5/5 prabha LE strength to facilitate return to prior level of activity and safety with mobility LTG Duration 12/22/23 Two Impairment Activities in confidence balance scale Impairment 46 indicating low confidence in mobility Short Term Goal (STG) Improve ABC score to at least 60% 10/20/23: ABC score improved to 52% STG Duration 11/07/23 Technical Support Director Goal (LTG) Improve ABC score to at least 75% as measure of improved confidence in mobility in her home and the community LTG Duration 12/22/23 One Impairment Belcher Balance score Impairment 37/52 indicating moderate fall risk Short Term Goal (STG) Improve Belcher balance score to at least 44/52 10/20/23: Belcher 41/52 STG Duration 11/07/23 Skilled Nursing Goal (LTG) Improve Belcher balance score to at least 50/52 to reduce fall risk to low to allow patient to return to prior level of function safely LTG Duration 12/22/23 Assessment Summary Assessment Patient able to descend 1 flight 10 4 stairs with 1 railing and no cane alternating pattern x 1 during gait training today. Continues to improve with confidence and functional ability. Uneven ground still causes fear of falling. Physical Therapy Plan Frequency and Duration Frequency of Treatment 2x/Week Duration of treatment (weeks) 12 Plan of Care Start Date 09/22/23 Plan of Care End Date 12/22/23 Therapeutic Interventions Therapeutic Interventions Balance Training,Gait Training ,Home Exercise Program,Manual Therapy,Patient/Caregiver Education,Self-Care/Home Management,Soft Tissue Mobilization,Taping, Therapeutic Activities, Therapeutic Exercises Modalities Cold Pack/Ice Massage,Electric Stimulation,Hot Packs, Ultrasound Next Visit Focus/Plan Next Note Type Treatment Note Next Visit Plan Continue as PT POC: Continue gait training variable surfaces, longer distance, do obstacle course, further stairs, progress strengthening and balance.
--- NOTE | 2023-11-27 15:14 | PT.OTN ---
Current Diagnoses Spinal stenosis, lumbar region with neurogenic claudication (11/27/23) Other specified disorders of bone density and structure, unspecified site (11/27/23) Wedge compression fracture of fourth lumbar vertebra, initial encounter for closed fracture (11/27/23) Physical Therapy Treatment Note PT-OP-A Visit Information Start: 09/21/23 16:22 Freq: Status: Active Protocol: Document 11/27/23 14:34 SP (Rec: 11/27/23 15:57 SP [id number]) Out-Patient Physical Therapy Visit Information Visit Information Visit Type Treatment Note Visit Note 07/25 post PN POC 12/22/23 appt. Visit Start Time 14:34 Visit Stop Time 15:14 Visit Number 19 Number of GROUP WORKER Visits 1 Evaluation Information Evaluation Date 09/22/23 Precautions Precautions High fear of falling, history L1 compression fracture PT-OP-B Current Condition Start: 09/21/23 16:22 Freq: Status: Active Protocol: Document 11/11/23 09:03 SAK (Rec: 11/11/23 09:44 SAK [id number]) Current Condition History of Current Condition Onset Date 04/20/24 Current Complaints weakness, back pain History of Current Condition compression fracture L1 when fell backward onto gravel going up stairs. Couldn't get up by herself. Son assisted her up and to her house. She just thought she bruised her back, couldn't get into see her primary physician. Went to walk in clinic. Diagnosed with L1 compression fracture. Referred to see Dr. Fair; had second x-ray at [facility]. Told to go home and take it easy and come back in 6 weeks. Fell again going into bank, couldn't feel right knee. Then stayed at home per doctor's recommendation and layed around, using a walker. Then went to [facility] due to hematuria, diagnosed with hemmorrhoid. Fell again stepping into shower wearing socks, then started taking sponge baths. Then didn't trust herself to do anything, fell again not being able to feel her knees and just dropped. Finally diagnosed with UTI, in hospital x 4 days . Feels she has lost a lot of strength. Practicing steps at hospital, fell as she started to descend due to losing balance. Then transferred to care facility in wheelchair or bed most of the time except with PT, states got weaker. Fell at care center as well due to unlocked chair. Had Home Health PT At this time back pain minimal, c/o weakness and fear of falling. Has been doing Home Health, now discharged. C/o weakness right greater than left. Prior Treatments and Tests x-ray: L1 compression fracture MRI: L3-L4: The disc height and disk signal are relatively well-preserved. Mild to moderate disc bulge is seen, with a central disc protrusion. At least moderate facet hypertrophy is seen. Associated hypertrophy of the ligamentum flavum can be seen. Fluid is seen within the facet joints themselves. There is moderate to severe bilateral neural foraminal narrowing seen, with an associated a degree of compression seen upon the exiting nerve roots. At least moderate central canal narrowing is seen. L4-L5: The disc height and disk signal are relatively well-preserved. Mild generalized disc bulge is seen. Moderate facet joint hypertrophy is seen. There is mild-to- moderate right-sided and no left-sided neural foraminal narrowing. No central canal narrowing is seen. L5-S1: At least moderate loss of disc height is seen. Mild to moderate disc bulge is seen, which is eccentric to the left. Mild to moderate facet hypertrophy is seen. No significant neural foraminal or central canal narrowing can be seen. PT-OP-C Subjective Start: 09/21/23 16:22 Freq: Status: Active Protocol: Document 11/27/23 14:34 SP (Rec: 11/27/23 15:57 SP [id number]) OP-PT Subjective Patient Comments Patient Comments Pt reports felt good after last tx. Realizing keeping active helps her feel more mobility. She said notices is getting better, get out to car and realized did have her cane earlier today, left indoors. Went back in to get to have for safety longer distances states hasn't built up endurance to go as long/far as wants. PT-OP-D Balance Start: 09/21/23 16:22 Freq: Status: Active Protocol: Document 09/22/23 10:33 SAK (Rec: 09/22/23 12:32 SAK [id number]) OP-PT Balance Assessment Sitting Balance Static Sitting Balance Ability Normal Dynamic Sitting Balance Ability Normal Balance Tests Belcher Balance Test Belcher Balance Test Score 38 Belcher Balance Assessment Evaluation Sitting to Standing Ability Independent w/out Hands Unsupported Stance Safely- 2 minutes Sitting Unsupported, Feet on Floor Safely- 2 minutes Standing to Sitting Ability Assist, Control w/Hands Transfer Ability Safely, Hand Use Unsupported Stance- Eyes Closed Supervision, 10 seconds Unsupported Stance- Eyes Open Supervision to maintain Reaching Forward Standing Safely, 5 inches Pick- Up Object From Floor Supervision Look Behind Shoulder - Standing Shifts Weight Well Turning 360 Degrees Supervision/Verbal Cues Unsupported Stance, Alternating Feet on 4 Steps w/Supervision Stair Unsupported Tandem Stance Balance Lost- Step/Stand Unilateral Leg Stance Unable,assist to not fall Total Score Belcher Total Score (out of 56 points) 37 Tinetti Balance Assessment Sitting Balance Sitting Balance Steady, safe Scoring and Interpretation Tinetti Composite Score (points) 1 Squires Fall Scale Copyright Permission PT-OP-E Functional Tests Start: 09/21/23 16:22 Freq: Status: Active Protocol: Document 09/22/23 10:33 [facility] (Rec: 09/22/23 12:32 [facility] [id number]) Functional Tests 2 Minute Walk Test Distance 75 Five Times Sit to Stand Test Score 21 Comments UE use PT-OP-F Manual Assessment Start: 09/21/23 16:22 Freq: Status: Active Protocol: Document 09/22/23 10:33 SAK (Rec: 09/22/23 12:32 [facility] [id number]) Manual Assessments Soft Tissue Assessment Soft Tissue Mobility Assessment TTP lumbar spine with inc soft tissue tightness PT-OP-G Mobility & Gait Start: 09/21/23 16:22 Freq: Status: Active Protocol: Document 09/22/23 10:33 SAK (Rec: 09/22/23 12:32 [facility] [id number]) OP Gait Assessment Gait Gait Assistance Required: Independent Assistive Devices Assistive Device Straight Cane,4 Wheeled Walker Gait Deviations General Gait Pattern Decreased Stride Length, Decreased Feet Clearance Factors Limiting Gait Function Factors Limiting Gait Function Decreased Activity Tolerance, Decreased Strength Stair Climbing Evaluation Evaluation Level of Assist On Stairs Standby Assistance Devices Stair Climbing Assistive Devices Straight Cane,Left Railing Technique/Endurance Stair Climbing Direction Ascend and Descend Stair Climbing Technique Step to Step PT-OP-J Posture/Palpation/Skin Start: 09/21/23 16:22 Freq: Status: Active Protocol: Document 09/22/23 10:33 SAK (Rec: 09/22/23 12:32 [facility] [id number]) Posture Evaluation Position Standing Evaluation View Lateral Head/C-Spine Posture Forward Head T-Spine Posture Increased Kyphosis L-Spine Posture Flattened PT-OP-K Range of Motion Start: 09/21/23 16:22 Freq: Status: Active Protocol: Document 09/22/23 10:33 [facility] (Rec: 09/22/23 12:32 [facility] [id number]) Lumbar Spine Range of Motion Lumbar Spine Active Flexion 20 Hip Goniometric Range of Motion Hip prabha Hip ROM WFL No Knee Goniometric Range of Motion Knee prabha Knee ROM WFL Yes Comments except lacking terminal extension right knee -8 Knee ROM Limitations Knee ROM Limitations Muscle Weakness Ankle and Foot Goniometric Range of Motion Ankle and Foot prabha Ankle/Foot ROM WFL Yes PT-OP-M Strength Start: 09/21/23 16:22 Freq: Status: Active Protocol: Document 09/22/23 10:33 [facility] (Rec: 09/22/23 12:32 [facility] [id number]) Trunk Strength Trunk Manual Muscle Testing Flexion 3+ Fair+ Extension 3+ Fair+ Hip Strength Hip Manual Muscle Testing prabha Flexion (L2) 3+ Fair+ Extension (S1) 3- Fair- Abduction 3+ Fair+ Knee Strength Knee Manual Muscle Testing Right Flexion (S2) 4 Good Extension (L3) 3- Fair- Left Flexion (S2) 4+ Good+ Extension (L3) 4+ Good+ Ankle/Foot Strength Ankle and Foot Manual Muscle Testing Right Dorsiflexion (L4) 4 Good Plantarflexion (S1) 4 Good Left Dorsiflexion (L4) 5 Normal Plantarflexion (S1) 5 Normal PT-OP-Q Treatments Start: 09/21/23 16:22 Freq: Status: Active Protocol: Document 11/27/23 14:34 SP (Rec: 11/27/23 15:57 SP [id number]) Cardio Equipment Recumbent Stepper (Sci-Fit) Duration (Minutes) 6 Resistance 3.5 Seat Position 10 Other LEs only 48 RPMs, 0.83 miles Gym Equipment Sport Cord red Exercise Details 1. f/b/lateral 2. fwd/back 4 step Reps/Duration 1. 5 x5 steps ea 2. x10 ea no UE support Comments Cued eccentric control, CG/SBA - reports little pain R LB that radiates into lateral leg when side step R against tension but goes away when return less-no tension Gait Training Gait Activity outdoor Device Used none on level and uneven blacktop and gravel, cane for incline grass Level of Assistance CGA, cues Surface uneven pavement, grass, gravel Distance/Duration 12 min Treatment Focus safety Comments level, incline, curb, stairs with railing, no railing, gravel (near [facility] nearby ). Needed use cane for added support on pavement 1/[address] parkinglot due to LEs tiring, low endurance. PT-OP-R Modalities Start: 09/21/23 16:22 Freq: Status: Active Protocol: Document 09/22/23 10:33 SAK (Rec: 09/22/23 12:32 SAK [id number]) Hot Pack/Cold Pack Treatment Cold Pack Location lumbar spine Patient Position Sitting PT-OP-T Assessment and Plan Start: 09/21/23 16:22 Freq: Status: Active Protocol: Document 11/27/23 14:34 SP (Rec: 11/27/23 15:57 SP [id number]) Physical Therapy Assessment Goals Four Impairment gait dysfunction Impairment requires the use of a straight cane or walker for safe mobility Correction Goal (LTG) Patient will be able to safely ambulate without an assistive device on level surfaces and with straight cane with outdoor, uneven ground and be able to ascend and descend stairs with step-over step pattern 10/20/23: now ambulating at home without cane, using cane for outdoor and community but hasn 't returned to all prior gait activities especially going to beach to walk due to uneven ground and fear of falling. LTG Duration 12/22/23 Three Impairment weakness Impairment LE weakness including lack of full right knee extension Short Term Goal (STG) Review current HEP and progress as appropriate for LE strengthening, especially focused on terminal knee extension righ 10/20/23: goal achieved STG Duration goal achieved Assistant Paralegal Goal (LTG) Patient to be independent and compliant with HEP and demonstrate 5/5 prabha LE strength to facilitate return to prior level of activity and safety with mobility LTG Duration 12/22/23 Two Impairment Activities in confidence balance scale Impairment 46 indicating low confidence in mobility Short Term Goal (STG) Improve ABC score to at least 60% 10/20/23: ABC score improved to 52% STG Duration 11/07/23 Assistant Paralegal Goal (LTG) Improve ABC score to at least 75% as measure of improved confidence in mobility in her home and the community LTG Duration 12/22/23 One Impairment Belcher Balance score Impairment 37/52 indicating moderate fall risk Short Term Goal (STG) Improve Belcher balance score to at least 44/52 10/20/23: Belcher 41/52 STG Duration 11/07/23 Correction Goal (LTG) Improve Belcher balance score to at least 50/52 to reduce fall risk to low to allow patient to return to prior level of function safely LTG Duration 12/22/23 Assessment Summary Assessment Pt improve endurance and stability gravel, uneven pavement 1/2 parkinglot walking today carrying cane, SBA pt preferred. She only sat x1 during tx after ther ex and before outdoor walking. She reports no pain just tiring end tx. Physical Therapy Plan Frequency and Duration Frequency of Treatment 2x/Week Duration of treatment (weeks) 12 Plan of Care Start Date 09/22/23 Plan of Care End Date 12/22/23 Therapeutic Interventions Therapeutic Interventions Balance Training,Gait Training ,Home Exercise Program,Manual Therapy,Patient/Caregiver Education,Self-Care/Home Management,Soft Tissue Mobilization,Taping, Therapeutic Activities, Therapeutic Exercises Modalities Cold Pack/Ice Massage,Electric Stimulation,Hot Packs, Ultrasound Next Visit Focus/Plan Next Note Type Treatment Note Next Visit Plan Next tx include multidirectional stepping, pivot turns as though dance classes to work toward PLOF. Continue as PT POC: Continue gait training variable surfaces, longer distance, do obstacle course, further stairs, progress strengthening and balance.
--- NOTE | 2023-11-30 16:46 | PT.OTN ---
Current Diagnoses Spinal stenosis, lumbar region with neurogenic claudication (11/30/23) Other specified disorders of bone density and structure, unspecified site (11/30/23) Wedge compression fracture of fourth lumbar vertebra, initial encounter for closed fracture (11/30/23) Physical Therapy Treatment Note PT-OP-A Visit Information Start: 09/21/23 16:22 Freq: Status: Active Protocol: Document 11/30/23 13:50 [facility] (Rec: 11/30/23 14:30 [facility] [id number]) Out-Patient Physical Therapy Visit Information Visit Information Visit Type Treatment Note Visit Note 08/22 post PN POC 12/22/23 appt. Visit Start Time 13:50 Visit Stop Time 14:30 Visit Number 20 Number of [employer] GUIDE Visits 0 Evaluation Information Evaluation Date 09/22/23 Precautions Precautions High fear of falling, history L1 compression fracture PT-OP-B Current Condition Start: 09/21/23 16:22 Freq: Status: Active Protocol: Document 11/11/23 09:03 [facility] (Rec: 11/11/23 09:44 [facility] [id number]) Current Condition History of Current Condition Onset Date 04/20/24 Current Complaints weakness, back pain History of Current Condition compression fracture L1 when fell backward onto gravel going up stairs. Couldn't get up by herself. Son assisted her up and to her house. She just thought she bruised her back, couldn't get into see her primary physician. Went to walk in clinic. Diagnosed with L1 compression fracture. Referred to see Dr. Fair; had second x-ray at [facility]. Told to go home and take it easy and come back in 6 weeks. Fell again going into bank, couldn't feel right knee. Then stayed at home per doctor's recommendation and layed around, using a walker. Then went to [facility] due to hematuria, diagnosed with hemmorrhoid. Fell again stepping into shower wearing socks, then started taking sponge baths. Then didn't trust herself to do anything, fell again not being able to feel her knees and just dropped. Finally diagnosed with UTI, in hospital x 4 days . Feels she has lost a lot of strength. Practicing steps at hospital, fell as she started to descend due to losing balance. Then transferred to care facility in wheelchair or bed most of the time except with PT, states got weaker. Fell at care center as well due to unlocked chair. Had Home Health PT At this time back pain minimal, c/o weakness and fear of falling. Has been doing Home Health, now discharged. C/o weakness right greater than left. Prior Treatments and Tests x-ray: L1 compression fracture MRI: L3-L4: The disc height and disk signal are relatively well-preserved. Mild to moderate disc bulge is seen, with a central disc protrusion. At least moderate facet hypertrophy is seen. Associated hypertrophy of the ligamentum flavum can be seen. Fluid is seen within the facet joints themselves. There is moderate to severe bilateral neural foraminal narrowing seen, with an associated a degree of compression seen upon the exiting nerve roots. At least moderate central canal narrowing is seen. L4-L5: The disc height and disk signal are relatively well-preserved. Mild generalized disc bulge is seen. Moderate facet joint hypertrophy is seen. There is mild-to- moderate right-sided and no left-sided neural foraminal narrowing. No central canal narrowing is seen. L5-S1: At least moderate loss of disc height is seen. Mild to moderate disc bulge is seen, which is eccentric to the left. Mild to moderate facet hypertrophy is seen. No significant neural foraminal or central canal narrowing can be seen. PT-OP-C Subjective Start: 09/21/23 16:22 Freq: Status: Active Protocol: Document 11/30/23 13:50 [facility] (Rec: 11/30/23 14:30 [facility] [id number]) OP-PT Subjective Patient Comments Patient Comments finding myself walking more inside without the cane. Still using the cane outdoors. Is going to start walking on the track due to school being out. Patient Reported Progress Improving PT-OP-D Balance Start: 09/21/23 16:22 Freq: Status: Active Protocol: Document 09/22/23 10:33 [facility] (Rec: 09/22/23 12:32 [facility] [id number]) OP-PT Balance Assessment Sitting Balance Static Sitting Balance Ability Normal Dynamic Sitting Balance Ability Normal Balance Tests Belcher Balance Test Belcher Balance Test Score 38 Belcher Balance Assessment Evaluation Sitting to Standing Ability Independent w/out Hands Unsupported Stance Safely- 2 minutes Sitting Unsupported, Feet on Floor Safely- 2 minutes Standing to Sitting Ability Assist, Control w/Hands Transfer Ability Safely, Hand Use Unsupported Stance- Eyes Closed Supervision, 10 seconds Unsupported Stance- Eyes Open Supervision to maintain Reaching Forward Standing Safely, 5 inches Pick- Up Object From Floor Supervision Look Behind Shoulder - Standing Shifts Weight Well Turning 360 Degrees Supervision/Verbal Cues Unsupported Stance, Alternating Feet on 4 Steps w/Supervision Stair Unsupported Tandem Stance Balance Lost- Step/Stand Unilateral Leg Stance Unable,assist to not fall Total Score Belcher Total Score (out of 56 points) 37 Tinetti Balance Assessment Sitting Balance Sitting Balance Steady, safe Scoring and Interpretation Tinetti Composite Score (points) 1 Squires Fall Scale Copyright Permission PT-OP-E Functional Tests Start: 09/21/23 16:22 Freq: Status: Active Protocol: Document 09/22/23 10:33 [facility] (Rec: 09/22/23 12:32 [facility] [id number]) Functional Tests 2 Minute Walk Test Distance 75 Five Times Sit to Stand Test Score 21 Comments UE use PT-OP-F Manual Assessment Start: 09/21/23 16:22 Freq: Status: Active Protocol: Document 09/22/23 10:33 [facility] (Rec: 09/22/23 12:32 [facility] [id number]) Manual Assessments Soft Tissue Assessment Soft Tissue Mobility Assessment TTP lumbar spine with inc soft tissue tightness PT-OP-G Mobility & Gait Start: 09/21/23 16:22 Freq: Status: Active Protocol: Document 09/22/23 10:33 [facility] (Rec: 09/22/23 12:32 [facility] [id number]) OP Gait Assessment Gait Gait Assistance Required: Independent Assistive Devices Assistive Device Straight Cane,4 Wheeled Walker Gait Deviations General Gait Pattern Decreased Stride Length, Decreased Feet Clearance Factors Limiting Gait Function Factors Limiting Gait Function Decreased Activity Tolerance, Decreased Strength Stair Climbing Evaluation Evaluation Level of Assist On Stairs Standby Assistance Devices Stair Climbing Assistive Devices Straight Cane,Left Railing Technique/Endurance Stair Climbing Direction Ascend and Descend Stair Climbing Technique Step to Step PT-OP-J Posture/Palpation/Skin Start: 09/21/23 16:22 Freq: Status: Active Protocol: Document 09/22/23 10:33 [facility] (Rec: 09/22/23 12:32 [facility] [id number]) Posture Evaluation Position Standing Evaluation View Lateral Head/C-Spine Posture Forward Head T-Spine Posture Increased Kyphosis L-Spine Posture Flattened PT-OP-K Range of Motion Start: 09/21/23 16:22 Freq: Status: Active Protocol: Document 09/22/23 10:33 [facility] (Rec: 09/22/23 12:32 [facility] [id number]) Lumbar Spine Range of Motion Lumbar Spine Active Flexion 20 Hip Goniometric Range of Motion Hip prabha Hip ROM WFL No Knee Goniometric Range of Motion Knee prabha Knee ROM WFL Yes Comments except lacking terminal extension right knee -8 Knee ROM Limitations Knee ROM Limitations Muscle Weakness Ankle and Foot Goniometric Range of Motion Ankle and Foot prabha Ankle/Foot ROM WFL Yes PT-OP-M Strength Start: 09/21/23 16:22 Freq: Status: Active Protocol: Document 09/22/23 10:33 [facility] (Rec: 09/22/23 12:32 [facility] [id number]) Trunk Strength Trunk Manual Muscle Testing Flexion 3+ Fair+ Extension 3+ Fair+ Hip Strength Hip Manual Muscle Testing prabha Flexion (L2) 3+ Fair+ Extension (S1) 3- Fair- Abduction 3+ Fair+ Knee Strength Knee Manual Muscle Testing Right Flexion (S2) 4 Good Extension (L3) 3- Fair- Left Flexion (S2) 4+ Good+ Extension (L3) 4+ Good+ Ankle/Foot Strength Ankle and Foot Manual Muscle Testing Right Dorsiflexion (L4) 4 Good Plantarflexion (S1) 4 Good Left Dorsiflexion (L4) 5 Normal Plantarflexion (S1) 5 Normal PT-OP-Q Treatments Start: 09/21/23 16:22 Freq: Status: Active Protocol: Document 11/30/23 13:50 [facility] (Rec: 11/30/23 14:30 [facility] [id number]) Cardio Equipment Recumbent Stepper (Sci-Fit) Duration (Minutes) 7 Resistance 3.5 Seat Position 10 Other LEs only 48 RPMs, 0. miles Gait Training Gait Activity outdoor Device Used none on level and uneven blacktop and gravel, cane for incline grass Level of Assistance CGA, cues Surface uneven pavement, grass, gravel Distance/Duration 12 min Treatment Focus safety Comments level, incline, curb, stairs with railing, no railing, gravel ([facility] ). Needed use cane for added support on pavement 1/[address] parkinglot due to LEs tiring, low endurance. Neuro Re-Education Treatment Balance Activities obstacle course Details 3 hurdles, blue& green therapads, Equipment gait belt, cane initially then 3x w/o Reps/Duration 4 laps Comments CGA, , cues for upright posture, high knee for increased hip flexion which improves foot clearance of kaylan w/ repetition. PT-OP-R Modalities Start: 09/21/23 16:22 Freq: Status: Active Protocol: Document 09/22/23 10:33 [facility] (Rec: 09/22/23 12:32 [facility] [id number]) Hot Pack/Cold Pack Treatment Cold Pack Location lumbar spine Patient Position Sitting PT-OP-T Assessment and Plan Start: 09/21/23 16:22 Freq: Status: Active Protocol: Document 11/30/23 13:50 [facility] (Rec: 11/30/23 14:30 [facility] [id number]) Physical Therapy Assessment Goals Four Impairment gait dysfunction Impairment requires the use of a straight cane or walker for safe mobility [employer] Representative Goal (LTG) Patient will be able to safely ambulate without an assistive device on level surfaces and with straight cane with outdoor, uneven ground and be able to ascend and descend stairs with step-over step pattern 10/20/23: now ambulating at home without cane, using cane for outdoor and community but hasn 't returned to all prior gait activities especially going to beach to walk due to uneven ground and fear of falling. LTG Duration 12/22/23 Three Impairment weakness Impairment LE weakness including lack of full right knee extension Short Term Goal (STG) Review current HEP and progress as appropriate for LE strengthening, especially focused on terminal knee extension righ 10/20/23: goal achieved STG Duration goal achieved [facility] Goal (LTG) Patient to be independent and compliant with HEP and demonstrate 5/5 prabha LE strength to facilitate return to prior level of activity and safety with mobility LTG Duration 12/22/23 Two Impairment Activities in confidence balance scale Impairment 46 indicating low confidence in mobility Short Term Goal (STG) Improve ABC score to at least 60% 10/20/23: ABC score improved to 52% STG Duration 11/07/23 [employer] Representative Goal (LTG) Improve ABC score to at least 75% as measure of improved confidence in mobility in her home and the community LTG Duration 12/22/23 One Impairment Belcher Balance score Impairment 37/52 indicating moderate fall risk Short Term Goal (STG) Improve Belcher balance score to at least 44/52 10/20/23: Belcher 41/52 STG Duration 11/07/23 [facility] Goal (LTG) Improve Belcher balance score to at least 50/52 to reduce fall risk to low to allow patient to return to prior level of function safely LTG Duration 12/22/23 Progress Towards Goals Progress Towards Goals Progressing Toward Goals Assessment Summary Assessment Patient continues to demonstrate improved functional strength and balance, needs frequent rest breaks throughout treatment ; took 3 seated rest breaks. Able to do obstacle course of foam and hurdles with only CGA today; reported scary but able to do. Will need to increase difficulty next session. Physical Therapy Plan Frequency and Duration Frequency of Treatment 2x/Week Duration of treatment (weeks) 12 Plan of Care Start Date 09/22/23 Plan of Care End Date 12/22/23 Therapeutic Interventions Therapeutic Interventions Balance Training,Gait Training ,Home Exercise Program,Manual Therapy,Patient/Caregiver Education,Self-Care/Home Management,Soft Tissue Mobilization,Taping, Therapeutic Activities, Therapeutic Exercises Modalities Cold Pack/Ice Massage,Electric Stimulation,Hot Packs, Ultrasound Next Visit Focus/Plan Next Note Type Treatment Note Next Visit Plan Next tx include multidirectional stepping, pivot turns as though dance classes to work toward PLOF. Continue as PT POC: Continue gait training variable surfaces, longer distance, do obstacle course, further stairs, progress strengthening and balance.
--- NOTE | 2023-12-02 15:43 | PT.OTRE ---
Current Diagnoses Spinal stenosis, lumbar region with neurogenic claudication (12/02/23) Other specified disorders of bone density and structure, unspecified site (12/02/23) Wedge compression fracture of fourth lumbar vertebra, initial encounter for closed fracture (12/02/23) Past Medical History (Last Reviewed 06/14/23 @ 23:43 by Opal Coulter MD) 1+ pitting edema Arthritis Bilateral knee pain 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) Essential hypertension Excessive daytime sleepiness (~2008) Generalized osteoarthritis GERD without esophagitis History of falling Intentional weight loss 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 weight loss discharge coordinator associated with adverse incidents Mixed hyperlipidemia Morbid obesity with BMI of 40.0-44.9, adult Nocturnal hypoxemia Obstructive sleep apnea of adult (~2008) Other pulmonary embolism with acute cor pulmonale Primary osteoarthritis of left knee Pulmonary emboli (~2007) Seasonal allergies Stasis dermatitis Venous insufficiency Surgical History (Last Reviewed 06/14/23 @ 23:43 by Opal Coulter MD) H/O bilateral cataract extraction History of arthroplasty of left knee (07/24/20) History of cholecystectomy History of salpingo-oophorectomy Visit Care Team Role Provider Type Kasia Dao PA-C Primary Care Provider Physician Helper Metal Hanging Specialty: Medical Address: [place], [address] Email: [email or web address] Badillo MD Family Provider Physician Specialty: Internal Medicine Address: [address] [place] [address], [id number] Email: [email or web address] Attending Provider Physician Referring Provider Specialty: Orthopedics Orthopedic Surgery Address: [address] [place] [address], [id number] Email: [email or web address] Physical Therapy Re-Evaluation PT-OP-A Visit Information Start: 09/21/23 16:22 Freq: Status: Active Protocol: Document 12/02/23 14:32 [facility] (Rec: 12/02/23 14:41 [facility] [id number]) Out-Patient Physical Therapy Visit Information Visit Information Visit Type Re-Evaluation Visit Start Time 14:33 Visit Stop Time 15:15 Visit Number 21 Number of STULL INSTALLER Visits 0 Evaluation Information Evaluation Date 09/22/23 Precautions Precautions High fear of falling, history L1 compression fracture PT-OP-B Current Condition Start: 09/21/23 16:22 Freq: Status: Active Protocol: Document 11/11/23 09:03 [facility] (Rec: 11/11/23 09:44 [facility] [id number]) Current Condition History of Current Condition Onset Date 04/20/24 Current Complaints weakness, back pain History of Current Condition compression fracture L1 when fell backward onto gravel going up stairs. Couldn't get up by herself. Son assisted her up and to her house. She just thought she bruised her back, couldn't get into see her primary physician. Went to walk in clinic. Diagnosed with L1 compression fracture. Referred to see Dr. Fari; had second x-ray at [facility]. Told to go home and take it easy and come back in 6 weeks. Fell again going into bank, couldn't feel right knee. Then stayed at home per doctor's recommendation and layed around, using a walker. Then went to [facility] due to hematuria, diagnosed with hemmorrhoid. Fell again stepping into shower wearing socks, then started taking sponge baths. Then didn't trust herself to do anything, fell again not being able to feel her knees and just dropped. Finally diagnosed with UTI, in hospital x 4 days . Feels she has lost a lot of strength. Practicing steps at hospital, fell as she started to descend due to losing balance. Then transferred to care facility in wheelchair or bed most of the time except with PT, states got weaker. Fell at care center as well due to unlocked chair. Had Home Health PT At this time back pain minimal, c/o weakness and fear of falling. Has been doing Home Health, now discharged. C/o weakness right greater than left. Prior Treatments and Tests x-ray: L1 compression fracture MRI: L3-L4: The disc height and disk signal are relatively well-preserved. Mild to moderate disc bulge is seen, with a central disc protrusion. At least moderate facet hypertrophy is seen. Associated hypertrophy of the ligamentum flavum can be seen. Fluid is seen within the facet joints themselves. There is moderate to severe bilateral neural foraminal narrowing seen, with an associated a degree of compression seen upon the exiting nerve roots. At least moderate central canal narrowing is seen. L4-L5: The disc height and disk signal are relatively well-preserved. Mild generalized disc bulge is seen. Moderate facet joint hypertrophy is seen. There is mild-to- moderate right-sided and no left-sided neural foraminal narrowing. No central canal narrowing is seen. L5-S1: At least moderate loss of disc height is seen. Mild to moderate disc bulge is seen, which is eccentric to the left. Mild to moderate facet hypertrophy is seen. No significant neural foraminal or central canal narrowing can be seen. PT-OP-C Subjective Start: 09/21/23 16:22 Freq: Status: Active Protocol: Document 12/02/23 14:32 [facility] (Rec: 12/02/23 14:41 [facility] [id number]) OP-PT Subjective Patient Comments Patient Comments No new c/o. Hasn't walked a lot. Patient Reported Progress Improving PT-OP-D Balance Start: 09/21/23 16:22 Freq: Status: Active Protocol: Document 09/22/23 10:33 [facility] (Rec: 09/22/23 12:32 [facility] [id number]) OP-PT Balance Assessment Sitting Balance Static Sitting Balance Ability Normal Dynamic Sitting Balance Ability Normal Balance Tests Belcher Balance Test Belcher Balance Test Score 38 Belcher Balance Assessment Evaluation Sitting to Standing Ability Independent w/out Hands Unsupported Stance Safely- 2 minutes Sitting Unsupported, Feet on Floor Safely- 2 minutes Standing to Sitting Ability Assist, Control w/Hands Transfer Ability Safely, Hand Use Unsupported Stance- Eyes Closed Supervision, 10 seconds Unsupported Stance- Eyes Open Supervision to maintain Reaching Forward Standing Safely, 5 inches Pick- Up Object From Floor Supervision Look Behind Shoulder - Standing Shifts Weight Well Turning 360 Degrees Supervision/Verbal Cues Unsupported Stance, Alternating Feet on 4 Steps w/Supervision Stair Unsupported Tandem Stance Balance Lost- Step/Stand Unilateral Leg Stance Unable,assist to not fall Total Score Belcher Total Score (out of 56 points) 37 Tinetti Balance Assessment Sitting Balance Sitting Balance Steady, safe Scoring and Interpretation Tinetti Composite Score (points) 1 Squires Fall Scale Copyright Permission Tavia JM, Tavia RM, Mariaelena SJ. Development of a scale to identify the fall- prone patient. Can J Aging 1989;8;366-7. Ruba Squires (2009). Preventing patient falls. (2nd ed). [place]: Bach. PT-OP-E Functional Tests Start: 09/21/23 16:22 Freq: Status: Active Protocol: Document 09/22/23 10:33 [facility] (Rec: 09/22/23 12:32 [facility] [id number]) Functional Tests 2 Minute Walk Test Distance 75 Five Times Sit to Stand Test Score 21 Comments UE use PT-OP-F Manual Assessment Start: 09/21/23 16:22 Freq: Status: Active Protocol: Document 09/22/23 10:33 [facility] (Rec: 09/22/23 12:32 [facility] [id number]) Manual Assessments Soft Tissue Assessment Soft Tissue Mobility Assessment TTP lumbar spine with inc soft tissue tightness PT-OP-G Mobility & Gait Start: 09/21/23 16:22 Freq: Status: Active Protocol: Document 09/22/23 10:33 [facility] (Rec: 09/22/23 12:32 [facility] [id number]) OP Gait Assessment Gait Gait Assistance Required: Independent Assistive Devices Assistive Device Straight Cane,4 Wheeled Walker Gait Deviations General Gait Pattern Decreased Stride Length, Decreased Feet Clearance Factors Limiting Gait Function Factors Limiting Gait Function Decreased Activity Tolerance, Decreased Strength Stair Climbing Evaluation Evaluation Level of Assist On Stairs Standby Assistance Devices Stair Climbing Assistive Devices Straight Cane,Left Railing Technique/Endurance Stair Climbing Direction Ascend and Descend Stair Climbing Technique Step to Step PT-OP-J Posture/Palpation/Skin Start: 09/21/23 16:22 Freq: Status: Active Protocol: Document 09/22/23 10:33 [facility] (Rec: 09/22/23 12:32 [facility] [id number]) Posture Evaluation Position Standing Evaluation View Lateral Head/C-Spine Posture Forward Head T-Spine Posture Increased Kyphosis L-Spine Posture Flattened PT-OP-K Range of Motion Start: 09/21/23 16:22 Freq: Status: Active Protocol: Document 09/22/23 10:33 [facility] (Rec: 09/22/23 12:32 [facility] [id number]) Lumbar Spine Range of Motion Lumbar Spine Active Flexion 20 Hip Goniometric Range of Motion Hip Measured in Degrees prabha Hip ROM WFL No Knee Goniometric Range of Motion Knee Measured in Degrees prabha Knee ROM WFL Yes Comments except lacking terminal extension right knee -8 Knee ROM Limitations Knee ROM Limitations Muscle Weakness Ankle and Foot Goniometric Range of Motion Ankle and Foot Measured in Degrees prabha Ankle/Foot ROM WFL Yes PT-OP-M Strength Start: 09/21/23 16:22 Freq: Status: Active Protocol: Document 09/22/23 10:33 [facility] (Rec: 09/22/23 12:32 [facility] [id number]) Trunk Strength Trunk Manual Muscle Testing Flexion 3+ Fair+ Extension 3+ Fair+ Hip Strength Hip Manual Muscle Testing prabha Flexion (L2) 3+ Fair+ Extension (S1) 3- Fair- Abduction 3+ Fair+ Knee Strength Knee Manual Muscle Testing Right Flexion (S2) 4 Good Extension (L3) 3- Fair- Left Flexion (S2) 4+ Good+ Extension (L3) 4+ Good+ Ankle/Foot Strength Ankle and Foot Manual Muscle Testing Right Dorsiflexion (L4) 4 Good Plantarflexion (S1) 4 Good Left Dorsiflexion (L4) 5 Normal Plantarflexion (S1) 5 Normal PT-OP-Q Treatments Start: 09/21/23 16:22 Freq: Status: Active Protocol: Document 12/02/23 14:32 [facility] (Rec: 12/02/23 15:30 [facility] [id number]) Cardio Equipment Recumbent Stepper (Sci-Fit) Duration (Minutes) 6 Resistance 3.5 Seat Position 10 Other LEs only 48 RPMs, 0.87 miles Therapeutic Exercises Standing Exercises toe raises Reps/Minutes 10x Comments noUE support heel raises Reps/Minutes 10x Comments no UE support; patient not achieving full ROM Gait Training Gait Activity outdoor Device Used none on level and uincline blacktop and gravel, cane for incline grass Level of Assistance CGA, cues Surface uneven pavement, grass, gravel , dirt Distance/Duration 12 min Treatment Focus safety Comments level, incline, curb, stairs with railing, no railing, gravel (near [facility] nearby ). Needed use cane for added support on grass, gravel, dirt with incline behind clinic stairs Description indoor 4 stairs Device Used gait belt, left rail ascend, right rail descend, no device Level of Assistance CGA, cues Distance/Duration asc/desc Treatment Focus safety, functional strength, confidence Comments cues for gluteal activation ascend, able to alternate feet ascend all stairs, descend about 50% alternating Neuro Re-Education Treatment Balance Activities square stepping Details 2 steps each direction to form square Surface firm Equipment gait belt Reps/Duration 4x Comments CW and CCW SLS Reps/Duration 3x ea leg Comments max 3 sec (improved from unable at evela0 obstacle course Details 4 hurdles, blue& green therapads, black foam, lg blue foam, 6 box Equipment gait belt, CGA, no cane. Min A x 3 Reps/Duration 4 laps Comments CGA, , cues for upright posture, high knee for increased hip flexion which improves foot clearance of kaylan w/ repetition. Movement Re-Education Movement Re-education Activities unpredictable command technique: steps different directions, varying number steps PT-OP-R Modalities Start: 09/21/23 16:22 Freq: Status: Active Protocol: Document 09/22/23 10:33 [facility] (Rec: 09/22/23 12:32 [facility] [id number]) Hot Pack/Cold Pack Treatment Cold Pack Location lumbar spine Patient Position Sitting PT-OP-T Assessment and Plan Start: 09/21/23 16:22 Freq: Status: Active Protocol: Document 12/02/23 14:32 [facility] (Rec: 12/02/23 14:41 [facility] [id number]) Physical Therapy Assessment Goals Four Impairment gait dysfunction Impairment requires the use of a straight cane or walker for safe mobility Mcfp Goal (LTG) Patient will be able to safely ambulate without an assistive device on level surfaces and with straight cane with outdoor, uneven ground and be able to ascend and descend stairs with step-over step pattern 10/20/23: now ambulating at home without cane, using cane for outdoor and community but hasn 't returned to all prior gait activities especially going to beach to walk due to uneven ground and fear of falling. 12/02/23: patient progressing with less need for cane with challenged gait activities in PT including stairs, outdoor level, obstacle course (though min assist for bal x 3 today w/o device). Good progress LTG Duration 01/15/24 Three Impairment weakness Impairment LE weakness including lack of full right knee extension Short Term Goal (STG) Review current HEP and progress as appropriate for LE strengthening, especially focused on terminal knee extension righ 10/20/23: goal achieved STG Duration goal achieved Mcfp Goal (LTG) Patient to be independent and compliant with HEP and demonstrate 5/5 prabha LE strength to facilitate return to prior level of activity and safety with mobility 12/02/23: LE strength grossly: hips 4-/5, knees 4/5, ankles 4 -/5 LTG Duration 01/15/24 Two Impairment Activities in confidence balance scale Impairment 46 indicating low confidence in mobility Short Term Goal (STG) Improve ABC score to at least 60% 10/20/23: ABC score improved to 52% 12/02/23: ABC improved to 61% goal met STG Duration goal met Mcfp Goal (LTG) Improve ABC score to at least 75% as measure of improved confidence in mobility in her home and the community LTG Duration 01/15/24 One Impairment Belcher Balance score Impairment 37/52 indicating moderate fall risk Short Term Goal (STG) Improve Belcher balance score to at least 44/52 10/20/23: Belcher 41/52/52 12/02/23: Belcher 46/52 STG Duration goal met Mcfp Goal (LTG) Improve Belcher balance score to at least 50/52 to reduce fall risk to low to allow patient to return to prior level of function safely LTG Duration 01/15/24 Progress Towards Goals Progress Towards Goals Progressing Toward Goals Assessment Summary Assessment Good progress toward all PT goals. Has good potential to fully achieve goals with further skilled PT. Patient remains highly motivated and compliant to HEP and is going to start a walking program with a friend. Physical Therapy Plan Frequency and Duration Frequency of Treatment 2x/Week Duration of treatment (weeks) 8 Plan of Care Start Date 12/02/23 Plan of Care End Date 01/15/24 Therapeutic Interventions Therapeutic Interventions Balance Training,Gait Training ,Home Exercise Program,Manual Therapy,Patient/Caregiver Education,Self-Care/Home Management,Soft Tissue Mobilization,Taping, Therapeutic Activities, Therapeutic Exercises Modalities Cold Pack/Ice Massage,Electric Stimulation,Hot Packs, Ultrasound Next Visit Focus/Plan Next Note Type Treatment Note Next Visit Plan Continue functional strengthening of core and legs , progress gait and balance training especially on uneven surfaces. Large mat over foam pods next session
--- NOTE | 2023-12-02 15:44 | PT.OPPOC ---
Physical, Occupational & Speech Therapy At [facility] Current Diagnoses Spinal stenosis, lumbar region with neurogenic claudication (12/02/23) Other specified disorders of bone density and structure, unspecified site (12/02/23) Wedge compression fracture of fourth lumbar vertebra, initial encounter for closed fracture (12/02/23) Visit Care Team Role Provider Type Kasia Dao PA-C Primary Care Provider Physician Twister In Specialty: Medical Address: [place], [place], [facility] Email: [email or web address] Sriram Badillo MD Family Provider Physician Specialty: Internal Medicine Address: [address] [place] [address], [facility] Email: [email or web address] [email or web address] Jin MD Attending Provider Physician Referring Provider Specialty: Orthopedics Orthopedic Surgery Address: [address] [place] [address], [id number] Email: [email or web address] Plan Of Care PT-OP-T Assessment and Plan Start: 09/21/23 16:22 Freq: Status: Active Protocol: Document 12/02/23 14:32 [facility] (Rec: 12/02/23 14:41 [facility] [id number]) Physical Therapy Assessment Goals Four Impairment gait dysfunction Impairment requires the use of a straight cane or walker for safe mobility Snf Goal (LTG) Patient will be able to safely ambulate without an assistive device on level surfaces and with straight cane with outdoor, uneven ground and be able to ascend and descend stairs with step-over step pattern 10/20/23: now ambulating at home without cane, using cane for outdoor and community but hasn 't returned to all prior gait activities especially going to beach to walk due to uneven ground and fear of falling. 12/02/23: patient progressing with less need for cane with challenged gait activities in PT including stairs, outdoor level, obstacle course (though min assist for bal x 3 today w/o device). Good progress LTG Duration 01/15/24 Three Impairment weakness Impairment LE weakness including lack of full right knee extension Short Term Goal (STG) Review current HEP and progress as appropriate for LE strengthening, especially focused on terminal knee extension righ 10/20/23: goal achieved STG Duration goal achieved Data Base Design Analyst Goal (LTG) Patient to be independent and compliant with HEP and demonstrate 5/5 prabha LE strength to facilitate return to prior level of activity and safety with mobility 12/02/23: LE strength grossly: hips 4-/5, knees 4/5, ankles 4 -/5 LTG Duration 01/15/24 Two Impairment Activities in confidence balance scale Impairment 46 indicating low confidence in mobility Short Term Goal (STG) Improve ABC score to at least 60% 10/20/23: ABC score improved to 52% 12/02/23: ABC improved to 61% goal met STG Duration goal met Snf Goal (LTG) Improve ABC score to at least 75% as measure of improved confidence in mobility in her home and the community LTG Duration 01/15/24 One Impairment Belcher Balance score Impairment 37/52 indicating moderate fall risk Short Term Goal (STG) Improve Belcher balance score to at least 44/52 10/20/23: Belcher 41/52/52 12/02/23: Belcher 46/52 STG Duration goal met Snf Goal (LTG) Improve Belcher balance score to at least 50/52 to reduce fall risk to low to allow patient to return to prior level of function safely LTG Duration 01/15/24 Progress Towards Goals Progress Towards Goals Progressing Toward Goals Assessment Summary Assessment Good progress toward all PT goals. Has good potential to fully achieve goals with further skilled PT. Patient remains highly motivated and compliant to HEP and is going to start a walking program with a friend. Physical Therapy Plan Frequency and Duration Frequency of Treatment 2x/Week Duration of treatment (weeks) 8 Plan of Care Start Date 12/02/23 Plan of Care End Date 01/15/24 Therapeutic Interventions Therapeutic Interventions Balance Training,Gait Training ,Home Exercise Program,Manual Therapy,Patient/Caregiver Education,Self-Care/Home Management,Soft Tissue Mobilization,Taping, Therapeutic Activities, Therapeutic Exercises Modalities Cold Pack/Ice Massage,Electric Stimulation,Hot Packs, Ultrasound Next Visit Focus/Plan Next Note Type Treatment Note Next Visit Plan Continue functional strengthening of core and legs , progress gait and balance training especially on uneven surfaces. Large mat over foam pods next session Plan of Care Dates Plan of Care Start Date 12/02/23 Plan of Care End Date 01/15/24 Electronically Signed by: Nissa Sanchez, PT 12/02/23 3130 If you are in agreement with this Plan of Care, please return a signed and dated copy. I have reviewed this Plan of Care and certify that the skilled therapy services above are required to meet the patient?s needs. Physician Signature Date Printed Name and Credentials Clinical Instructor Signature Printed Name and Credentials
--- NOTE | 2023-12-15 13:49 | PT.OTN ---
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 Couldn't get up by herself. Son assisted her up and to her house. She just thought she bruised her back, couldn't get into see her primary physician. Went to walk in clinic. Diagnosed with L1 compression fracture. Referred to see Dr. Fair; had second x-ray at [facility]. Told to go home and take it easy and come back in 6 weeks. Fell again going into bank, couldn't feel right knee. Then stayed at home per doctor's recommendation and layed around, using a walker. Then went to [facility] due to hematuria, diagnosed with hemmorrhoid. Fell again stepping into shower wearing socks, then started taking sponge baths. Then didn't trust herself to do anything, fell again not being able to feel her knees and just dropped. Finally diagnosed with UTI, in hospital x 4 days . Feels she has lost a lot of strength. Practicing steps at hospital, fell as she started to descend due to losing balance. Then transferred to care facility in wheelchair or bed most of the time except with PT, states got weaker. Fell at care center as well due to unlocked chair. Had Home Health PT At this time back pain minimal, c/o weakness and fear of falling. Has been doing Home Health, now discharged. C/o weakness right greater than left. Prior Treatments and Tests x-ray: L1 compression fracture MRI: L3-L4: The disc height and disk signal are relatively well-preserved. Mild to moderate disc bulge is seen, with a central disc protrusion. At least moderate facet hypertrophy is seen. Associated hypertrophy of the ligamentum flavum can be seen. Fluid is seen within the facet joints themselves. There is moderate to severe bilateral neural foraminal narrowing seen, with an associated a degree of compression seen upon the exiting nerve roots. At least moderate central canal narrowing is seen. L4-L5: The disc height and disk signal are relatively well-preserved. Mild generalized disc bulge is seen. Moderate facet joint hypertrophy is seen. There is mild-to- moderate right-sided and no left-sided neural foraminal narrowing. No central canal narrowing is seen. L5-S1: At least moderate loss of disc height is seen. Mild to moderate disc bulge is seen, which is eccentric to the left. Mild to moderate facet hypertrophy is seen. No significant neural foraminal or central canal narrowing can be seen. PT-OP-C Subjective Start: 09/21/23 16:22 Freq: Status: Active Protocol: Document 12/15/23 13:07 SP (Rec: 12/15/23 13:50 SP [id number]) OP-PT Subjective Patient Comments Patient Comments Pt reports has been walking the [place] with [place] trek poles for help endurance in am during nice weather. Recently did 1 lap, leave energy for errands/activities still need to do. Wants to work up to 4 laps goal to get up to a mile. Pt stated isn't able to walk on beach due to have to step over drift wood unsteady so sits on bench nearby and reads until can tackle later. Patient Reported Progress Improving PT-OP-D Balance Start: 09/21/23 16:22 Freq: Status: Active Protocol: Document 09/22/23 10:33 SAK (Rec: 09/22/23 12:32 SAK [id number]) OP-PT Balance Assessment Sitting Balance Static Sitting Balance Ability Normal Dynamic Sitting Balance Ability Normal Balance Tests Belcher Balance Test Belcher Balance Test Score 38 Belcher Balance Assessment Evaluation Sitting to Standing Ability Independent w/out Hands Unsupported Stance Safely- 2 minutes Sitting Unsupported, Feet on Floor Safely- 2 minutes Standing to Sitting Ability Assist, Control w/Hands Transfer Ability Safely, Hand Use Unsupported Stance- Eyes Closed Supervision, 10 seconds Unsupported Stance- Eyes Open Supervision to maintain Reaching Forward Standing Safely, 5 inches Pick- Up Object From Floor Supervision Look Behind Shoulder - Standing Shifts Weight Well Turning 360 Degrees Supervision/Verbal Cues Unsupported Stance, Alternating Feet on 4 Steps w/Supervision Stair Unsupported Tandem Stance Balance Lost- Step/Stand Unilateral Leg Stance Unable,assist to not fall Total Score Belcher Total Score (out of 56 points) 37 Tinetti Balance Assessment Sitting Balance Sitting Balance Steady, safe Scoring and Interpretation Tinetti Composite Score (points) 1 Squires Fall Scale Copyright Permission PT-OP-E Functional Tests Start: 09/21/23 16:22 Freq: Status: Active Protocol: Document 09/22/23 10:33 SAK (Rec: 09/22/23 12:32 [facility] [id number]) Functional Tests 2 Minute Walk Test Distance 75 Five Times Sit to Stand Test Score 21 Comments UE use PT-OP-F Manual Assessment Start: 09/21/23 16:22 Freq: Status: Active Protocol: Document 09/22/23 10:33 SAK (Rec: 09/22/23 12:32 [facility] [id number]) Manual Assessments Soft Tissue Assessment Soft Tissue Mobility Assessment TTP lumbar spine with inc soft tissue tightness PT-OP-G Mobility & Gait Start: 09/21/23 16:22 Freq: Status: Active Protocol: Document 09/22/23 10:33 SAK (Rec: 09/22/23 12:32 [facility] [id number]) OP Gait Assessment Gait Gait Assistance Required: Independent Assistive Devices Assistive Device Straight Cane,4 Wheeled Walker Gait Deviations General Gait Pattern Decreased Stride Length, Decreased Feet Clearance Factors Limiting Gait Function Factors Limiting Gait Function Decreased Activity Tolerance, Decreased Strength Stair Climbing Evaluation Evaluation Level of Assist On Stairs Standby Assistance Devices Stair Climbing Assistive Devices Straight Cane,Left Railing Technique/Endurance Stair Climbing Direction Ascend and Descend Stair Climbing Technique Step to Step PT-OP-J Posture/Palpation/Skin Start: 09/21/23 16:22 Freq: Status: Active Protocol: Document 09/22/23 10:33 SAK (Rec: 09/22/23 12:32 SAK [id number]) Posture Evaluation Position Standing Evaluation View Lateral Head/C-Spine Posture Forward Head T-Spine Posture Increased Kyphosis L-Spine Posture Flattened PT-OP-K Range of Motion Start: 09/21/23 16:22 Freq: Status: Active Protocol: Document 09/22/23 10:33 SAK (Rec: 09/22/23 12:32 SAK [id number]) Lumbar Spine Range of Motion Lumbar Spine Active Flexion 20 Hip Goniometric Range of Motion Hip vic Hip ROM WFL No Knee Goniometric Range of Motion Knee vic Knee ROM WFL Yes Comments except lacking terminal extension right knee -8 Knee ROM Limitations Knee ROM Limitations Muscle Weakness Ankle and Foot Goniometric Range of Motion Ankle and Foot vic Ankle/Foot ROM WFL Yes PT-OP-M Strength Start: 09/21/23 16:22 Freq: Status: Active Protocol: Document 09/22/23 10:33 [facility] (Rec: 09/22/23 12:32 [facility] [id number]) Trunk Strength Trunk Manual Muscle Testing Flexion 3+ Fair+ Extension 3+ Fair+ Hip Strength Hip Manual Muscle Testing vic Flexion (L2) 3+ Fair+ Extension (S1) 3- Fair- Abduction 3+ Fair+ Knee Strength Knee Manual Muscle Testing Right Flexion (S2) 4 Good Extension (L3) 3- Fair- Left Flexion (S2) 4+ Good+ Extension (L3) 4+ Good+ Ankle/Foot Strength Ankle and Foot Manual Muscle Testing Right Dorsiflexion (L4) 4 Good Plantarflexion (S1) 4 Good Left Dorsiflexion (L4) 5 Normal Plantarflexion (S1) 5 Normal PT-OP-Q Treatments Start: 09/21/23 16:22 Freq: Status: Active Protocol: Document 12/15/23 13:07 SP (Rec: 12/15/23 13:50 SP [id number]) Cardio Equipment Recumbent Stepper (Sci-Fit) Duration (Minutes) 6 Resistance 3.5 Seat Position 10 Other LEs only 48 RPMs, 0.87 miles Therapeutic Exercises Standing Exercises toe raises Resistance AROM Equipment Used no UE support Reps/Minutes 10x Comments weakness, improves more range with reps but not achieve full ROM heel raises Resistance floor no UE support Reps/Minutes 10x3 sets each Comments patient not achieving full ROM Gait Training Gait Activity outdoor Device Used uneven pavement, grass and gravel incline/declines, curbs Level of Assistance S/ Mod I Surface uneven pavement, grass, gravel , dirt Distance/Duration 12 min Treatment Focus safety Comments level, incline, curb, stairs with railing, no railing, gravel ([facility] nearby ). Needed use cane for added support on grass, gravel, dirt with incline behind clinic. Neuro Re-Education Treatment Balance Activities square stepping Details 2 steps each direction to form square Surface firm Equipment gait belt Reps/Duration 5 reps each direction Comments CW and CCW SLS Details added to HEP Reps/Duration 3x ea leg Comments R 2-4 sec L 2-3 sec - encouraged to do more at home obstacle course Details 4 hurdles & bal beam, lrg foam , black foam, lg blue foam, 4 & 6 box Equipment gait belt, CGA, no cane. Reps/Duration 4 laps Comments CGA, Cued wt shift into Fwd LE PT-OP-R Modalities Start: 09/21/23 16:22 Freq: Status: Active Protocol: Document 09/22/23 10:33 SAK (Rec: 09/22/23 12:32 SAK [id number]) Hot Pack/Cold Pack Treatment Cold Pack Location lumbar spine Patient Position Sitting PT-OP-T Assessment and Plan Start: 09/21/23 16:22 Freq: Status: Active Protocol: Document 12/15/23 13:07 SP (Rec: 12/15/23 13:50 SP [id number]) Physical Therapy Assessment Goals Four Impairment gait dysfunction Impairment requires the use of a straight cane or walker for safe mobility Internet Designer Goal (LTG) Patient will be able to safely ambulate without an assistive device on level surfaces and with straight cane with outdoor, uneven ground and be able to ascend and descend stairs with step-over step pattern 10/20/23: now ambulating at home without cane, using cane for outdoor and community but hasn 't returned to all prior gait activities especially going to beach to walk due to uneven ground and fear of falling. 12/02/23: patient progressing with less need for cane with challenged gait activities in PT including stairs, outdoor level, obstacle course (though min assist for bal x 3 today w/o device). Good progress LTG Duration 01/15/24 Three Impairment weakness Impairment LE weakness including lack of full right knee extension Short Term Goal (STG) Review current HEP and progress as appropriate for LE strengthening, especially focused on terminal knee extension righ 10/20/23: goal achieved STG Duration goal achieved Internet Designer Goal (LTG) Patient to be independent and compliant with HEP and demonstrate 5/5 vic LE strength to facilitate return to prior level of activity and safety with mobility 12/02/23: LE strength grossly: hips 4-/5, knees 4/5, ankles 4 -/5 LTG Duration 01/15/24 Two Impairment Activities in confidence balance scale Impairment 46 indicating low confidence in mobility Short Term Goal (STG) Improve ABC score to at least 60% 10/20/23: ABC score improved to 52% 12/02/23: ABC improved to 61% goal met STG Duration goal met Group Home Goal (LTG) Improve ABC score to at least 75% as measure of improved confidence in mobility in her home and the community LTG Duration 01/15/24 One Impairment Belcher Balance score Impairment 37/52 indicating moderate fall risk Short Term Goal (STG) Improve Belcher balance score to at least 44/52 10/20/23: Belcher 41/52/52 12/02/23: Belcher 46/52 STG Duration goal met Group Home Goal (LTG) Improve Belcher balance score to at least 50/52 to reduce fall risk to low to allow patient to return to prior level of function safely LTG Duration 01/15/24 Assessment Summary Assessment Pt reports making gains, walking 1 lap track in [facility]. Pt S/Mod I walking updown grassy inclines and curbs today. Challenged with uneven obstacle course step onto uneven surface as steps over bal beam/[place] for beach assimulation, CGA little sways but no LOB. Pt reports would like to continue this type of activity. DIscussed bring in HEP HOs to condense what needs to do, hasn't been doing, focused outside activities with good weather. Continue improve SLS 2-4 sec today. Physical Therapy Plan Frequency and Duration Frequency of Treatment 2x/Week Duration of treatment (weeks) 8 Plan of Care Start Date 12/02/23 Plan of Care End Date 01/15/24 Therapeutic Interventions Therapeutic Interventions Balance Training,Gait Training ,Home Exercise Program,Manual Therapy,Patient/Caregiver Education,Self-Care/Home Management,Soft Tissue Mobilization,Taping, Therapeutic Activities, Therapeutic Exercises Modalities Cold Pack/Ice Massage,Electric Stimulation,Hot Packs, Ultrasound Next Visit Focus/Plan Next Note Type Treatment Note Next Visit Plan Check added appts 1x/wk through Jan. Condense HEP /c brought in HOs next tx. POC: Continue functional strengthening of core and legs , progress gait and balance training especially on uneven surfaces. Large mat over foam pods, step over bal beams onto uneven foam next session.
--- NOTE | 2023-12-25 16:15 | PT.OTN ---
Current Diagnoses Spinal stenosis, lumbar region with neurogenic claudication (12/25/23) Other specified disorders of bone density and structure, unspecified site (12/25/23) Wedge compression fracture of fourth lumbar vertebra, initial encounter for closed fracture (12/25/23) Physical Therapy Treatment Note PT-OP-A Visit Information Start: 09/21/23 16:22 Freq: Status: Active Protocol: Document 12/25/23 15:19 TS (Rec: 12/25/23 16:15 TS [id number]) Out-Patient Physical Therapy Visit Information Visit Information Visit Type Treatment Note Visit Start Time 15:20 Visit Stop Time 16:00 Visit Number 24 Number of HOGSHEAD OPENER Visits 1 PT-OP-B Current Condition Start: 09/21/23 16:22 Freq: Status: Active Protocol: Document 11/11/23 09:03 SAK (Rec: 11/11/23 09:44 SAK [id number]) Current Condition History of Current Condition Onset Date 04/20/24 Current Complaints weakness, back pain History of Current Condition compression fracture L1 when fell backward onto gravel going up stairs. Couldn't get up by herself. Son assisted her up and to her house. She just thought she bruised her back, couldn't get into see her primary physician. Went to walk in clinic. Diagnosed with L1 compression fracture. Referred to see Dr. Fair; had second x-ray at [facility]. Told to go home and take it easy and come back in 6 weeks. Fell again going into bank, couldn't feel right knee. Then stayed at home per doctor's recommendation and layed around, using a walker. Then went to [facility] due to hematuria, diagnosed with hemmorrhoid. Fell again stepping into shower wearing socks, then started taking sponge baths. Then didn't trust herself to do anything, fell again not being able to feel her knees and just dropped. Finally diagnosed with UTI, in hospital x 4 days . Feels she has lost a lot of strength. Practicing steps at hospital, fell as she started to descend due to losing balance. Then transferred to care facility in wheelchair or bed most of the time except with PT, states got weaker. Fell at care center as well due to unlocked chair. Had Home Health PT At this time back pain minimal, c/o weakness and fear of falling. Has been doing Home Health, now discharged. C/o weakness right greater than left. Prior Treatments and Tests x-ray: L1 compression fracture MRI: L3-L4: The disc height and disk signal are relatively well-preserved. Mild to moderate disc bulge is seen, with a central disc protrusion. At least moderate facet hypertrophy is seen. Associated hypertrophy of the ligamentum flavum can be seen. Fluid is seen within the facet joints themselves. There is moderate to severe bilateral neural foraminal narrowing seen, with an associated a degree of compression seen upon the exiting nerve roots. At least moderate central canal narrowing is seen. L4-L5: The disc height and disk signal are relatively well-preserved. Mild generalized disc bulge is seen. Moderate facet joint hypertrophy is seen. There is mild-to- moderate right-sided and no left-sided neural foraminal narrowing. No central canal narrowing is seen. L5-S1: At least moderate loss of disc height is seen. Mild to moderate disc bulge is seen, which is eccentric to the left. Mild to moderate facet hypertrophy is seen. No significant neural foraminal or central canal narrowing can be seen. PT-OP-C Subjective Start: 09/21/23 16:22 Freq: Status: Active Protocol: Document 12/25/23 15:19 TS (Rec: 12/25/23 16:15 TS [id number]) OP-PT Subjective Patient Comments Patient Comments Went to water aerobics at pool on Thursday. Was able to complete full 45min class. Will do a couple times a week. Reports back is fine today. PT-OP-D Balance Start: 09/21/23 16:22 Freq: Status: Active Protocol: Document 09/22/23 10:33 [facility] (Rec: 09/22/23 12:32 [facility] [id number]) OP-PT Balance Assessment Sitting Balance Static Sitting Balance Ability Normal Dynamic Sitting Balance Ability Normal Balance Tests Belcher Balance Test Belcher Balance Test Score 38 Belcher Balance Assessment Evaluation Sitting to Standing Ability Independent w/out Hands Unsupported Stance Safely- 2 minutes Sitting Unsupported, Feet on Floor Safely- 2 minutes Standing to Sitting Ability Assist, Control w/Hands Transfer Ability Safely, Hand Use Unsupported Stance- Eyes Closed Supervision, 10 seconds Unsupported Stance- Eyes Open Supervision to maintain Reaching Forward Standing Safely, 5 inches Pick- Up Object From Floor Supervision Look Behind Shoulder - Standing Shifts Weight Well Turning 360 Degrees Supervision/Verbal Cues Unsupported Stance, Alternating Feet on 4 Steps w/Supervision Stair Unsupported Tandem Stance Balance Lost- Step/Stand Unilateral Leg Stance Unable,assist to not fall Total Score Belcher Total Score (out of 56 points) 37 Tinetti Balance Assessment Sitting Balance Sitting Balance Steady, safe Scoring and Interpretation Tinetti Composite Score (points) 1 Squires Fall Scale Copyright Permission PT-OP-E Functional Tests Start: 09/21/23 16:22 Freq: Status: Active Protocol: Document 09/22/23 10:33 [facility] (Rec: 09/22/23 12:32 [facility] [id number]) Functional Tests 2 Minute Walk Test Distance 75 Five Times Sit to Stand Test Score 21 Comments UE use PT-OP-F Manual Assessment Start: 09/21/23 16:22 Freq: Status: Active Protocol: Document 09/22/23 10:33 SAK (Rec: 09/22/23 12:32 [facility] [id number]) Manual Assessments Soft Tissue Assessment Soft Tissue Mobility Assessment TTP lumbar spine with inc soft tissue tightness PT-OP-G Mobility & Gait Start: 09/21/23 16:22 Freq: Status: Active Protocol: Document 09/22/23 10:33 SAK (Rec: 09/22/23 12:32 [facility] [id number]) OP Gait Assessment Gait Gait Assistance Required: Independent Assistive Devices Assistive Device Straight Cane,4 Wheeled Walker Gait Deviations General Gait Pattern Decreased Stride Length, Decreased Feet Clearance Factors Limiting Gait Function Factors Limiting Gait Function Decreased Activity Tolerance, Decreased Strength Stair Climbing Evaluation Evaluation Level of Assist On Stairs Standby Assistance Devices Stair Climbing Assistive Devices Straight Cane,Left Railing Technique/Endurance Stair Climbing Direction Ascend and Descend Stair Climbing Technique Step to Step PT-OP-J Posture/Palpation/Skin Start: 09/21/23 16:22 Freq: Status: Active Protocol: Document 09/22/23 10:33 SAK (Rec: 09/22/23 12:32 [facility] [id number]) Posture Evaluation Position Standing Evaluation View Lateral Head/C-Spine Posture Forward Head T-Spine Posture Increased Kyphosis L-Spine Posture Flattened PT-OP-K Range of Motion Start: 09/21/23 16:22 Freq: Status: Active Protocol: Document 09/22/23 10:33 SAK (Rec: 09/22/23 12:32 [facility] [id number]) Lumbar Spine Range of Motion Lumbar Spine Active Flexion 20 Hip Goniometric Range of Motion Hip prabha Hip ROM WFL No Knee Goniometric Range of Motion Knee prabha Knee ROM WFL Yes Comments except lacking terminal extension right knee -8 Knee ROM Limitations Knee ROM Limitations Muscle Weakness Ankle and Foot Goniometric Range of Motion Ankle and Foot prabha Ankle/Foot ROM WFL Yes PT-OP-M Strength Start: 09/21/23 16:22 Freq: Status: Active Protocol: Document 09/22/23 10:33 [facility] (Rec: 09/22/23 12:32 [facility] [id number]) Trunk Strength Trunk Manual Muscle Testing Flexion 3+ Fair+ Extension 3+ Fair+ Hip Strength Hip Manual Muscle Testing prabha Flexion (L2) 3+ Fair+ Extension (S1) 3- Fair- Abduction 3+ Fair+ Knee Strength Knee Manual Muscle Testing Right Flexion (S2) 4 Good Extension (L3) 3- Fair- Left Flexion (S2) 4+ Good+ Extension (L3) 4+ Good+ Ankle/Foot Strength Ankle and Foot Manual Muscle Testing Right Dorsiflexion (L4) 4 Good Plantarflexion (S1) 4 Good Left Dorsiflexion (L4) 5 Normal Plantarflexion (S1) 5 Normal PT-OP-Q Treatments Start: 09/21/23 16:22 Freq: Status: Active Protocol: Document 12/25/23 15:19 TS (Rec: 12/25/23 16:15 TS [id number]) Cardio Equipment Recumbent Stepper (Sci-Fit) Duration (Minutes) 8 Resistance 3.5 Seat Position 10 Other LEs only 50 RPMs, 0.89 miles Gait Training Gait Activity outdoor Device Used uneven pavement, grass and gravel incline/declines, curbs Level of Assistance S/ Mod I Surface uneven pavement, grass, gravel , dirt Distance/Duration 8 min Treatment Focus safety Comments On curb and in grass with SPC. stairs Description indoor 4 stairs Device Used gait belt, left rail ascend, right rail descend, no device Level of Assistance CGA, cues Distance/Duration asc/desc Treatment Focus safety, functional strength, confidence Comments w/SPC and L handrail. Neuro Re-Education Treatment Balance Activities square stepping Details 2 steps each direction to form square Surface firm Equipment gait belt Reps/Duration 5 reps each direction Comments CW and CCW SLS Equipment // Reps/Duration 3x ea leg Comments R 2-4 sec L 6-8 sec - encouraged to do more at home tandem stepping Reps/Duration 10ft X2 10 feet X 2 retro Comments In // bars, did not require UE support. PT-OP-R Modalities Start: 09/21/23 16:22 Freq: Status: Active Protocol: Document 09/22/23 10:33 SAK (Rec: 09/22/23 12:32 SAK [id number]) Hot Pack/Cold Pack Treatment Cold Pack Location lumbar spine Patient Position Sitting PT-OP-T Assessment and Plan Start: 09/21/23 16:22 Freq: Status: Active Protocol: Document 12/25/23 15:19 TS (Rec: 12/25/23 16:15 TS [id number]) Physical Therapy Assessment Goals Four Impairment gait dysfunction Impairment requires the use of a straight cane or walker for safe mobility Medical Support Assistant Goal (LTG) Patient will be able to safely ambulate without an assistive device on level surfaces and with straight cane with outdoor, uneven ground and be able to ascend and descend stairs with step-over step pattern 10/20/23: now ambulating at home without cane, using cane for outdoor and community but hasn 't returned to all prior gait activities especially going to beach to walk due to uneven ground and fear of falling. 12/02/23: patient progressing with less need for cane with challenged gait activities in PT including stairs, outdoor level, obstacle course (though min assist for bal x 3 today w/o device). Good progress LTG Duration 01/15/24 Three Impairment weakness Impairment LE weakness including lack of full right knee extension Short Term Goal (STG) Review current HEP and progress as appropriate for LE strengthening, especially focused on terminal knee extension righ 10/20/23: goal achieved STG Duration goal achieved Medical Support Assistant Goal (LTG) Patient to be independent and compliant with HEP and demonstrate 5/5 prabha LE strength to facilitate return to prior level of activity and safety with mobility 12/02/23: LE strength grossly: hips 4-/5, knees 4/5, ankles 4 -/5 LTG Duration 01/15/24 Two Impairment Activities in confidence balance scale Impairment 46 indicating low confidence in mobility Short Term Goal (STG) Improve ABC score to at least 60% 10/20/23: ABC score improved to 52% 12/02/23: ABC improved to 61% goal met STG Duration goal met [facility] Goal (LTG) Improve ABC score to at least 75% as measure of improved confidence in mobility in her home and the community LTG Duration 01/15/24 One Impairment Belcher Balance score Impairment 37/52 indicating moderate fall risk Short Term Goal (STG) Improve Belcher balance score to at least 44/52 10/20/23: Belcher 41/52/52 12/02/23: Belcher 46/52 STG Duration goal met Medical Support Assistant Goal (LTG) Improve Belcher balance score to at least 50/52 to reduce fall risk to low to allow patient to return to prior level of function safely LTG Duration 01/15/24 Assessment Summary Assessment Pt continues to make progress with her activity tolerance abd balance. Stairs remain challenging and she becomes SOB with stairs leading upstairs. She did not have LOB or buckling in knees with gait training on uneven surface of grass. She was SBA for all tasks today. Physical Therapy Plan Next Visit Focus/Plan Next Note Type Treatment Note Next Visit Plan review core exercises and progress as able for core stabilization, continue to progress balance and gait activities.
--- NOTE | 2023-12-30 14:30 | PT-OP ANOTE ---
patient DNS for appt but after PT left message she called back to say she had LVM this am to cancel 1345 appt due to not feeling well. Went to doctor and is dehydrated.
--- NOTE | 2024-01-06 15:48 | PT.OTN ---
Current Diagnoses Spinal stenosis, lumbar region with neurogenic claudication (01/06/24) Other specified disorders of bone density and structure, unspecified site (01/06/24) Wedge compression fracture of fourth lumbar vertebra, initial encounter for closed fracture (01/06/24) Physical Therapy Treatment Note PT-OP-A Visit Information Start: 09/21/23 16:22 Freq: Status: Active Protocol: Document 01/06/24 15:18 [facility] (Rec: 01/06/24 15:48 [facility] [id number]) Out-Patient Physical Therapy Visit Information Visit Information Visit Type Treatment Note Visit Start Time 15:20 Visit Stop Time 15:40 Visit Number 25 Number of SKEIN WINDER Visits 0 Evaluation Information Evaluation Date 09/22/23 Precautions Precautions High fear of falling, history L1 compression fracture PT-OP-B Current Condition Start: 09/21/23 16:22 Freq: Status: Active Protocol: Document 11/11/23 09:03 SAK (Rec: 11/11/23 09:44 [facility] [id number]) Current Condition History of Current Condition Onset Date 04/20/24 Current Complaints weakness, back pain History of Current Condition compression fracture L1 when fell backward onto gravel going up stairs. Couldn't get up by herself. Son assisted her up and to her house. She just thought she bruised her back, couldn't get into see her primary physician. Went to walk in clinic. Diagnosed with L1 compression fracture. Referred to see Dr. Fair; had second x-ray at [facility]. Told to go home and take it easy and come back in 6 weeks. Fell again going into bank, couldn't feel right knee. Then stayed at home per doctor's recommendation and layed around, using a walker. Then went to [facility] due to hematuria, diagnosed with hemmorrhoid. Fell again stepping into shower wearing socks, then started taking sponge baths. Then didn't trust herself to do anything, fell again not being able to feel her knees and just dropped. Finally diagnosed with UTI, in hospital x 4 days . Feels she has lost a lot of strength. Practicing steps at hospital, fell as she started to descend due to losing balance. Then transferred to care facility in wheelchair or bed most of the time except with PT, states got weaker. Fell at care center as well due to unlocked chair. Had Home Health PT At this time back pain minimal, c/o weakness and fear of falling. Has been doing Home Health, now discharged. C/o weakness right greater than left. Prior Treatments and Tests x-ray: L1 compression fracture MRI: L3-L4: The disc height and disk signal are relatively well-preserved. Mild to moderate disc bulge is seen, with a central disc protrusion. At least moderate facet hypertrophy is seen. Associated hypertrophy of the ligamentum flavum can be seen. Fluid is seen within the facet joints themselves. There is moderate to severe bilateral neural foraminal narrowing seen, with an associated a degree of compression seen upon the exiting nerve roots. At least moderate central canal narrowing is seen. L4-L5: The disc height and disk signal are relatively well-preserved. Mild generalized disc bulge is seen. Moderate facet joint hypertrophy is seen. There is mild-to- moderate right-sided and no left-sided neural foraminal narrowing. No central canal narrowing is seen. L5-S1: At least moderate loss of disc height is seen. Mild to moderate disc bulge is seen, which is eccentric to the left. Mild to moderate facet hypertrophy is seen. No significant neural foraminal or central canal narrowing can be seen. PT-OP-C Subjective Start: 09/21/23 16:22 Freq: Status: Active Protocol: Document 01/06/24 15:18 [facility] (Rec: 01/06/24 15:48 [facility] [id number]) OP-PT Subjective Patient Comments Patient Comments Reports better today, though still tired after being diagnosed with dehydration after cancelling last visit. PT-OP-D Balance Start: 09/21/23 16:22 Freq: Status: Active Protocol: Document 09/22/23 10:33 [facility] (Rec: 09/22/23 12:32 [facility] [id number]) OP-PT Balance Assessment Sitting Balance Static Sitting Balance Ability Normal Dynamic Sitting Balance Ability Normal Balance Tests Belcher Balance Test Belcher Balance Test Score 38 Belcher Balance Assessment Evaluation Sitting to Standing Ability Independent w/out Hands Unsupported Stance Safely- 2 minutes Sitting Unsupported, Feet on Floor Safely- 2 minutes Standing to Sitting Ability Assist, Control w/Hands Transfer Ability Safely, Hand Use Unsupported Stance- Eyes Closed Supervision, 10 seconds Unsupported Stance- Eyes Open Supervision to maintain Reaching Forward Standing Safely, 5 inches Pick- Up Object From Floor Supervision Look Behind Shoulder - Standing Shifts Weight Well Turning 360 Degrees Supervision/Verbal Cues Unsupported Stance, Alternating Feet on 4 Steps w/Supervision Stair Unsupported Tandem Stance Balance Lost- Step/Stand Unilateral Leg Stance Unable,assist to not fall Total Score Belcher Total Score (out of 56 points) 37 Tinetti Balance Assessment Sitting Balance Sitting Balance Steady, safe Scoring and Interpretation Tinetti Composite Score (points) 1 Squires Fall Scale Copyright Permission PT-OP-E Functional Tests Start: 09/21/23 16:22 Freq: Status: Active Protocol: Document 09/22/23 10:33 SAK (Rec: 09/22/23 12:32 [facility] [id number]) Functional Tests 2 Minute Walk Test Distance 75 Five Times Sit to Stand Test Score 21 Comments UE use PT-OP-F Manual Assessment Start: 09/21/23 16:22 Freq: Status: Active Protocol: Document 09/22/23 10:33 [facility]AK (Rec: 09/22/23 12:32 [facility] [id number]) Manual Assessments Soft Tissue Assessment Soft Tissue Mobility Assessment TTP lumbar spine with inc soft tissue tightness PT-OP-G Mobility & Gait Start: 09/21/23 16:22 Freq: Status: Active Protocol: Document 09/22/23 10:33 SAK (Rec: 09/22/23 12:32 [facility] [id number]) OP Gait Assessment Gait Gait Assistance Required: Independent Assistive Devices Assistive Device Straight Cane,4 Wheeled Walker Gait Deviations General Gait Pattern Decreased Stride Length, Decreased Feet Clearance Factors Limiting Gait Function Factors Limiting Gait Function Decreased Activity Tolerance, Decreased Strength Stair Climbing Evaluation Evaluation Level of Assist On Stairs Standby Assistance Devices Stair Climbing Assistive Devices Straight Cane,Left Railing Technique/Endurance Stair Climbing Direction Ascend and Descend Stair Climbing Technique Step to Step PT-OP-J Posture/Palpation/Skin Start: 09/21/23 16:22 Freq: Status: Active Protocol: Document 09/22/23 10:33 [facility] (Rec: 09/22/23 12:32 [facility] [id number]) Posture Evaluation Position Standing Evaluation View Lateral Head/C-Spine Posture Forward Head T-Spine Posture Increased Kyphosis L-Spine Posture Flattened PT-OP-K Range of Motion Start: 09/21/23 16:22 Freq: Status: Active Protocol: Document 09/22/23 10:33 [facility] (Rec: 09/22/23 12:32 [facility]AK [id number]) Lumbar Spine Range of Motion Lumbar Spine Active Flexion 20 Hip Goniometric Range of Motion Hip prabha Hip ROM WFL No Knee Goniometric Range of Motion Knee prabha Knee ROM WFL Yes Comments except lacking terminal extension right knee -8 Knee ROM Limitations Knee ROM Limitations Muscle Weakness Ankle and Foot Goniometric Range of Motion Ankle and Foot prabha Ankle/Foot ROM WFL Yes PT-OP-M Strength Start: 09/21/23 16:22 Freq: Status: Active Protocol: Document 09/22/23 10:33 [facility] (Rec: 09/22/23 12:32 [facility] [id number]) Trunk Strength Trunk Manual Muscle Testing Flexion 3+ Fair+ Extension 3+ Fair+ Hip Strength Hip Manual Muscle Testing prabha Flexion (L2) 3+ Fair+ Extension (S1) 3- Fair- Abduction 3+ Fair+ Knee Strength Knee Manual Muscle Testing Right Flexion (S2) 4 Good Extension (L3) 3- Fair- Left Flexion (S2) 4+ Good+ Extension (L3) 4+ Good+ Ankle/Foot Strength Ankle and Foot Manual Muscle Testing Right Dorsiflexion (L4) 4 Good Plantarflexion (S1) 4 Good Left Dorsiflexion (L4) 5 Normal Plantarflexion (S1) 5 Normal PT-OP-Q Treatments Start: 09/21/23 16:22 Freq: Status: Active Protocol: Document 01/06/24 15:18 [facility] (Rec: 01/06/24 15:48 [facility] [id number]) Gait Training Gait Activity stairs Description indoor 4 stairs Device Used gait belt, left rail ascend, right rail descend, no device Level of Assistance CGA, cues Surface 20 stairs x 2, rest in between each rep Distance/Duration asc/desc Treatment Focus safety, functional strength, confidence Comments w/SPC and L handrail. PT-OP-R Modalities Start: 09/21/23 16:22 Freq: Status: Active Protocol: Document 09/22/23 10:33 [facility] (Rec: 09/22/23 12:32 [facility] [id number]) Hot Pack/Cold Pack Treatment Cold Pack Location lumbar spine Patient Position Sitting PT-OP-T Assessment and Plan Start: 09/21/23 16:22 Freq: Status: Active Protocol: Document 01/06/24 15:18 [facility] (Rec: 01/06/24 15:48 [facility] [id number]) Physical Therapy Assessment Goals Four Impairment gait dysfunction Impairment requires the use of a straight cane or walker for safe mobility [employer] Magazine Goal (LTG) Patient will be able to safely ambulate without an assistive device on level surfaces and with straight cane with outdoor, uneven ground and be able to ascend and descend stairs with step-over step pattern 10/20/23: now ambulating at home without cane, using cane for outdoor and community but hasn 't returned to all prior gait activities especially going to beach to walk due to uneven ground and fear of falling. 12/02/23: patient progressing with less need for cane with challenged gait activities in PT including stairs, outdoor level, obstacle course (though min assist for bal x 3 today w/o device). Good progress LTG Duration 01/15/24 Three Impairment weakness Impairment LE weakness including lack of full right knee extension Short Term Goal (STG) Review current HEP and progress as appropriate for LE strengthening, especially focused on terminal knee extension righ 10/20/23: goal achieved STG Duration goal achieved Intermediate Goal (LTG) Patient to be independent and compliant with HEP and demonstrate 5/5 prabha LE strength to facilitate return to prior level of activity and safety with mobility 12/02/23: LE strength grossly: hips 4-/5, knees 4/5, ankles 4 -/5 LTG Duration 01/15/24 Two Impairment Activities in confidence balance scale Impairment 46 indicating low confidence in mobility Short Term Goal (STG) Improve ABC score to at least 60% 10/20/23: ABC score improved to 52% 12/02/23: ABC improved to 61% goal met STG Duration goal met [employer] Goal (LTG) Improve ABC score to at least 75% as measure of improved confidence in mobility in her home and the community LTG Duration 01/15/24 One Impairment Belcher Balance score Impairment 37/52 indicating moderate fall risk Short Term Goal (STG) Improve Belcher balance score to at least 44/52 10/20/23: Belcher 41/52/52 12/02/23: Belcher 46/52 STG Duration goal met Intermediate Goal (LTG) Improve Belcher balance score to at least 50/52 to reduce fall risk to low to allow patient to return to prior level of function safely LTG Duration 01/15/24 Progress Towards Goals Progress Towards Goals Progressing Toward Goals,Slow Progress due to Medical Issues Assessment Summary Assessment treatment ended early due to patient fatigue, just feel like I need to go home and rest. Drank 2 cups of water while in PT, after each rep of stairs. Denied [place], dizziness . Physical Therapy Plan Next Visit Focus/Plan Next Note Type Treatment Note Next Visit Plan review core exercises and progress as able for core stabilization, continue to progress balance and gait activities.
--- NOTE | 2024-01-12 16:14 | PT.OTN ---
Current Diagnoses Spinal stenosis, lumbar region with neurogenic claudication (01/12/24) Other specified disorders of bone density and structure, unspecified site (01/12/24) Wedge compression fracture of fourth lumbar vertebra, initial encounter for closed fracture (01/12/24) Physical Therapy Treatment Note PT-OP-A Visit Information Start: 09/21/23 16:22 Freq: Status: Active Protocol: Document 01/12/24 15:14 [facility] (Rec: 01/12/24 16:14 [facility] [id number]) Out-Patient Physical Therapy Visit Information Visit Information Visit Type Treatment Note Visit Start Time 15:15 Visit Stop Time 15:55 Visit Number 26 Number of WOOD HEEL ATT[employer]ER Visits 0 Evaluation Information Evaluation Date 09/22/23 Precautions Precautions High fear of falling, history L1 compression fracture PT-OP-B Current Condition Start: 09/21/23 16:22 Freq: Status: Active Protocol: Document 11/11/23 09:03 [facility] (Rec: 11/11/23 09:44 [facility] [id number]) Current Condition History of Current Condition Onset Date 04/20/24 Current Complaints weakness, back pain History of Current Condition compression fracture L1 when fell backward onto gravel going up stairs. Couldn't get up by herself. Son assisted her up and to her house. She just thought she bruised her back, couldn't get into see her primary physician. Went to walk in clinic. Diagnosed with L1 compression fracture. Referred to see Dr. Fair; had second x-ray at [facility]. Told to go home and take it easy and come back in 6 weeks. Fell again going into bank, couldn't feel right knee. Then stayed at home per doctor's recommendation and layed around, using a walker. Then went to [facility] due to hematuria, diagnosed with hemmorrhoid. Fell again stepping into shower wearing socks, then started taking sponge baths. Then didn't trust herself to do anything, fell again not being able to feel her knees and just dropped. Finally diagnosed with UTI, in hospital x 4 days . Feels she has lost a lot of strength. Practicing steps at hospital, fell as she started to descend due to losing balance. Then transferred to care facility in wheelchair or bed most of the time except with PT, states got weaker. Fell at care center as well due to unlocked chair. Had Home Health PT At this time back pain minimal, c/o weakness and fear of falling. Has been doing Home Health, now discharged. C/o weakness right greater than left. Prior Treatments and Tests x-ray: L1 compression fracture MRI: L3-L4: The disc height and disk signal are relatively well-preserved. Mild to moderate disc bulge is seen, with a central disc protrusion. At least moderate facet hypertrophy is seen. Associated hypertrophy of the ligamentum flavum can be seen. Fluid is seen within the facet joints themselves. There is moderate to severe bilateral neural foraminal narrowing seen, with an associated a degree of compression seen upon the exiting nerve roots. At least moderate central canal narrowing is seen. L4-L5: The disc height and disk signal are relatively well-preserved. Mild generalized disc bulge is seen. Moderate facet joint hypertrophy is seen. There is mild-to- moderate right-sided and no left-sided neural foraminal narrowing. No central canal narrowing is seen. L5-S1: At least moderate loss of disc height is seen. Mild to moderate disc bulge is seen, which is eccentric to the left. Mild to moderate facet hypertrophy is seen. No significant neural foraminal or central canal narrowing can be seen. PT-OP-C Subjective Start: 09/21/23 16:22 Freq: Status: Active Protocol: Document 01/12/24 15:14 [facility] (Rec: 01/12/24 16:14 [facility] [id number]) OP-PT Subjective Patient Comments Patient Comments Feels better but tired, has been very busy today. Has been going to the track; going around 2-3x (1/4 mi each time ). Working toward being able to go to [place] in February to see family. PT-OP-D Balance Start: 09/21/23 16:22 Freq: Status: Active Protocol: Document 09/22/23 10:33 [facility] (Rec: 09/22/23 12:32 [facility] [id number]) OP-PT Balance Assessment Sitting Balance Static Sitting Balance Ability Normal Dynamic Sitting Balance Ability Normal Balance Tests Belcher Balance Test Belcher Balance Test Score 38 Belcher Balance Assessment Evaluation Sitting to Standing Ability Independent w/out Hands Unsupported Stance Safely- 2 minutes Sitting Unsupported, Feet on Floor Safely- 2 minutes Standing to Sitting Ability Assist, Control w/Hands Transfer Ability Safely, Hand Use Unsupported Stance- Eyes Closed Supervision, 10 seconds Unsupported Stance- Eyes Open Supervision to maintain Reaching Forward Standing Safely, 5 inches Pick- Up Object From Floor Supervision Look Behind Shoulder - Standing Shifts Weight Well Turning 360 Degrees Supervision/Verbal Cues Unsupported Stance, Alternating Feet on 4 Steps w/Supervision Stair Unsupported Tandem Stance Balance Lost- Step/Stand Unilateral Leg Stance Unable,assist to not fall Total Score Belcher Total Score (out of 56 points) 37 Tinetti Balance Assessment Sitting Balance Sitting Balance Steady, safe Scoring and Interpretation Tinetti Composite Score (points) 1 Squires Fall Scale Copyright Permission PT-OP-E Functional Tests Start: 09/21/23 16:22 Freq: Status: Active Protocol: Document 09/22/23 10:33 [facility] (Rec: 09/22/23 12:32 [facility] [id number]) Functional Tests 2 Minute Walk Test Distance 75 Five Times Sit to Stand Test Score 21 Comments UE use PT-OP-F Manual Assessment Start: 09/21/23 16:22 Freq: Status: Active Protocol: Document 09/22/23 10:33 [facility] (Rec: 09/22/23 12:32 [facility] [id number]) Manual Assessments Soft Tissue Assessment Soft Tissue Mobility Assessment TTP lumbar spine with inc soft tissue tightness PT-OP-G Mobility & Gait Start: 09/21/23 16:22 Freq: Status: Active Protocol: Document 09/22/23 10:33 [facility] (Rec: 09/22/23 12:32 [facility] [id number]) OP Gait Assessment Gait Gait Assistance Required: Independent Assistive Devices Assistive Device Straight Cane,4 Wheeled Walker Gait Deviations General Gait Pattern Decreased Stride Length, Decreased Feet Clearance Factors Limiting Gait Function Factors Limiting Gait Function Decreased Activity Tolerance, Decreased Strength Stair Climbing Evaluation Evaluation Level of Assist On Stairs Standby Assistance Devices Stair Climbing Assistive Devices Straight Cane,Left Railing Technique/Endurance Stair Climbing Direction Ascend and Descend Stair Climbing Technique Step to Step PT-OP-J Posture/Palpation/Skin Start: 09/21/23 16:22 Freq: Status: Active Protocol: Document 09/22/23 10:33 [facility] (Rec: 09/22/23 12:32 [facility] [id number]) Posture Evaluation Position Standing Evaluation View Lateral Head/C-Spine Posture Forward Head T-Spine Posture Increased Kyphosis L-Spine Posture Flattened PT-OP-K Range of Motion Start: 09/21/23 16:22 Freq: Status: Active Protocol: Document 09/22/23 10:33 [facility] (Rec: 09/22/23 12:32 [facility] [id number]) Lumbar Spine Range of Motion Lumbar Spine Active Flexion 20 Hip Goniometric Range of Motion Hip prabha Hip ROM WFL No Knee Goniometric Range of Motion Knee prabha Knee ROM WFL Yes Comments except lacking terminal extension right knee -8 Knee ROM Limitations Knee ROM Limitations Muscle Weakness Ankle and Foot Goniometric Range of Motion Ankle and Foot prabha Ankle/Foot ROM WFL Yes PT-OP-M Strength Start: 09/21/23 16:22 Freq: Status: Active Protocol: Document 09/22/23 10:33 [facility] (Rec: 09/22/23 12:32 [facility] [id number]) Trunk Strength Trunk Manual Muscle Testing Flexion 3+ Fair+ Extension 3+ Fair+ Hip Strength Hip Manual Muscle Testing prabha Flexion (L2) 3+ Fair+ Extension (S1) 3- Fair- Abduction 3+ Fair+ Knee Strength Knee Manual Muscle Testing Right Flexion (S2) 4 Good Extension (L3) 3- Fair- Left Flexion (S2) 4+ Good+ Extension (L3) 4+ Good+ Ankle/Foot Strength Ankle and Foot Manual Muscle Testing Right Dorsiflexion (L4) 4 Good Plantarflexion (S1) 4 Good Left Dorsiflexion (L4) 5 Normal Plantarflexion (S1) 5 Normal PT-OP-Q Treatments Start: 09/21/23 16:22 Freq: Status: Active Protocol: Document 01/12/24 15:14 [facility] (Rec: 01/12/24 16:14 [facility] [id number]) Cardio Equipment Recumbent Stepper (Sci-Fit) Duration (Minutes) 8 Resistance 3.5 Seat Position 10 Other LEs only 50 RPMs, 0.89 miles PT-OP-R Modalities Start: 09/21/23 16:22 Freq: Status: Active Protocol: Document 09/22/23 10:33 [facility] (Rec: 09/22/23 12:32 [facility] [id number]) Hot Pack/Cold Pack Treatment Cold Pack Location lumbar spine Patient Position Sitting PT-OP-T Assessment and Plan Start: 09/21/23 16:22 Freq: Status: Active Protocol: Document 01/12/24 15:14 [facility] (Rec: 01/12/24 16:14 [facility] [id number]) Physical Therapy Assessment Goals Four Impairment gait dysfunction Impairment requires the use of a straight cane or walker for safe mobility Fdc Goal (LTG) Patient will be able to safely ambulate without an assistive device on level surfaces and with straight cane with outdoor, uneven ground and be able to ascend and descend stairs with step-over step pattern 10/20/23: now ambulating at home without cane, using cane for outdoor and community but hasn 't returned to all prior gait activities especially going to beach to walk due to uneven ground and fear of falling. 12/02/23: patient progressing with less need for cane with challenged gait activities in PT including stairs, outdoor level, obstacle course (though min assist for bal x 3 today w/o device). Good progress 01/12/24: mostly met, uses cane or trekking poles for uneven ground but balance reactions and confidence improving LTG Duration goal met Three Impairment weakness Impairment LE weakness including lack of full right knee extension Short Term Goal (STG) Review current HEP and progress as appropriate for LE strengthening, especially focused on terminal knee extension righ 10/20/23: goal achieved STG Duration goal achieved Fdc Goal (LTG) Patient to be independent and compliant with HEP and demonstrate 5/5 prabha LE strength to facilitate return to prior level of activity and safety with mobility 12/02/23: LE strength grossly: hips 4-/5, knees 4/5, ankles 4 -/5 01/12/24: goal met LTG Duration goal met Two Impairment Activities in confidence balance scale Impairment 46 indicating low confidence in mobility Short Term Goal (STG) Improve ABC score to at least 60% 10/20/23: ABC score improved to 52% 12/02/23: ABC improved to 61% goal met STG Duration goal met Subway Guard Goal (LTG) Improve ABC score to at least 75% as measure of improved confidence in mobility in her home and the community 01/12/24: goal met LTG Duration goal met One Impairment Belcher Balance score Impairment 37/52 indicating moderate fall risk Short Term Goal (STG) Improve Belcher balance score to at least 44/52 10/20/23: Belcher 41/52/52 12/02/23: Belcher 46/52 STG Duration goal met Subway Guard Goal (LTG) Improve Belcher balance score to at least 50/52 to reduce fall risk to low to allow patient to return to prior level of function safely LTG Duration 01/15/24 Progress Towards Goals Progress Towards Goals Progressing Toward Goals,Slow Progress due to Medical Issues Assessment Summary Assessment Patient making good progress toward goals, most achieved. Discussed having 1 further treatment to assure safety and independence with HEP and progress as tolerated. Discharge after that appointment. Physical Therapy Plan Frequency and Duration Frequency of Treatment 2x/Week Duration of treatment (weeks) 8 Plan of Care Start Date 12/02/23 Plan of Care End Date 01/15/24 Next Visit Focus/Plan Next Note Type Treatment Note Next Visit Plan Finalize review HEP, update as indicated, further instruction in walking program .
--- NOTE | 2024-01-20 13:16 | PT.OTRE ---
Current Diagnoses Spinal stenosis, lumbar region with neurogenic claudication (01/20/24) Other specified disorders of bone density and structure, unspecified site (01/20/24) Wedge compression fracture of fourth lumbar vertebra, initial encounter for closed fracture (01/20/24) Past Medical History (Last Reviewed 06/14/23 @ 23:43 by Opal Coulter MD) 1+ pitting edema Arthritis Bilateral knee pain 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) Essential hypertension Excessive daytime sleepiness (~2008) Generalized osteoarthritis GERD without esophagitis History of falling Intentional weight loss 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 Mixed hyperlipidemia Morbid obesity with BMI of 40.0-44.9, adult Nocturnal hypoxemia Obstructive sleep apnea of adult (~2008) Other pulmonary embolism with acute cor pulmonale Primary osteoarthritis of left knee Pulmonary emboli (~2007) Seasonal allergies Stasis dermatitis Venous insufficiency Surgical History (Last Reviewed 06/14/23 @ 23:43 by Opal Coulter MD) H/O bilateral cataract extraction History of arthroplasty of left knee (07/24/20) History of cholecystectomy History of salpingo-oophorectomy Visit Care Team Role Provider Type Kasia Dao PA-C Primary Care Provider Physician Group Sales Coordinator Specialty: Medical Address: [place], [place], [facility] Email: [email or web address] Family Provider Physician Specialty: Internal Medicine Address: [address] [place] [address], [id number] Email: [email or web address] Attending Provider Physician Referring Provider Specialty: Orthopedics Orthopedic Surgery Address: [address] [place] [address], [address] Email: [email or web address] Physical Therapy Re-Evaluation PT-OP-A Visit Information Start: 09/21/23 16:22 Freq: Status: Active Protocol: Document 01/20/24 13:08 [facility] (Rec: 01/20/24 13:15 [facility] [id number]) Out-Patient Physical Therapy Visit Information Visit Information Visit Type Treatment Note Visit Start Time 11:15 Visit Stop Time 11:58 Visit Number 27 Number of KNOCKOUT MAN Visits 0 Evaluation Information Evaluation Date 09/22/23 Precautions Precautions High fear of falling, history L1 compression fracture PT-OP-B Current Condition Start: 09/21/23 16:22 Freq: Status: Active Protocol: Document 11/11/23 09:03 [facility] (Rec: 11/11/23 09:44 [facility] [id number]) Current Condition History of Current Condition Onset Date 04/20/24 Current Complaints weakness, back pain History of Current Condition compression fracture L1 when fell backward onto gravel going up stairs. Couldn't get up by herself. Son assisted her up and to her house. She just thought she bruised her back, couldn't get into see her primary physician. Went to walk in clinic. Diagnosed with L1 compression fracture. Referred to see Dr. Fair; had second x-ray at [facility]. Told to go home and take it easy and come back in 6 weeks. Fell again going into bank, couldn't feel right knee. Then stayed at home per doctor's recommendation and layed around, using a walker. Then went to [facility] due to hematuria, diagnosed with hemmorrhoid. Fell again stepping into shower wearing socks, then started taking sponge baths. Then didn't trust herself to do anything, fell again not being able to feel her knees and just dropped. Finally diagnosed with UTI, in hospital x 4 days . Feels she has lost a lot of strength. Practicing steps at hospital, fell as she started to descend due to losing balance. Then transferred to care facility in wheelchair or bed most of the time except with PT, states got weaker. Fell at care center as well due to unlocked chair. Had Home Health PT At this time back pain minimal, c/o weakness and fear of falling. Has been doing Home Health, now discharged. C/o weakness right greater than left. Prior Treatments and Tests x-ray: L1 compression fracture MRI: L3-L4: The disc height and disk signal are relatively well-preserved. Mild to moderate disc bulge is seen, with a central disc protrusion. At least moderate facet hypertrophy is seen. Associated hypertrophy of the ligamentum flavum can be seen. Fluid is seen within the facet joints themselves. There is moderate to severe bilateral neural foraminal narrowing seen, with an associated a degree of compression seen upon the exiting nerve roots. At least moderate central canal narrowing is seen. L4-L5: The disc height and disk signal are relatively well-preserved. Mild generalized disc bulge is seen. Moderate facet joint hypertrophy is seen. There is mild-to- moderate right-sided and no left-sided neural foraminal narrowing. No central canal narrowing is seen. L5-S1: At least moderate loss of disc height is seen. Mild to moderate disc bulge is seen, which is eccentric to the left. Mild to moderate facet hypertrophy is seen. No significant neural foraminal or central canal narrowing can be seen. PT-OP-C Subjective Start: 09/21/23 16:22 Freq: Status: Active Protocol: Document 01/20/24 13:08 [facility] (Rec: 01/20/24 13:15 [facility] [id number]) OP-PT Subjective Patient Comments Patient Comments Reports now can walk around the track 2x easily using trekking poles, sometimes able to do 3rd lap. Still tires easily, curbs still feel scary but improving. Trying to do more of her balance exercises as well. PT-OP-D Balance Start: 09/21/23 16:22 Freq: Status: Active Protocol: Document 09/22/23 10:33 [facility] (Rec: 09/22/23 12:32 [facility] [id number]) OP-PT Balance Assessment Sitting Balance Static Sitting Balance Ability Normal Dynamic Sitting Balance Ability Normal Balance Tests Belcher Balance Test Belcher Balance Test Score 38 Belcher Balance Assessment Evaluation Sitting to Standing Ability Independent w/out Hands Unsupported Stance Safely- 2 minutes Sitting Unsupported, Feet on Floor Safely- 2 minutes Standing to Sitting Ability Assist, Control w/Hands Transfer Ability Safely, Hand Use Unsupported Stance- Eyes Closed Supervision, 10 seconds Unsupported Stance- Eyes Open Supervision to maintain Reaching Forward Standing Safely, 5 inches Pick- Up Object From Floor Supervision Look Behind Shoulder - Standing Shifts Weight Well Turning 360 Degrees Supervision/Verbal Cues Unsupported Stance, Alternating Feet on 4 Steps w/Supervision Stair Unsupported Tandem Stance Balance Lost- Step/Stand Unilateral Leg Stance Unable,assist to not fall Total Score Belcher Total Score (out of 56 points) 37 Tinetti Balance Assessment Sitting Balance Sitting Balance Steady, safe Scoring and Interpretation Tinetti Composite Score (points) 1 Squires Fall Scale Copyright Permission Tavia JM, Tavia RM, Mariaelena SJ. Development of a scale to identify the fall- prone patient. Can J Aging 1989;8;366-7. Ruba Squires (2009). Preventing patient falls. (2nd ed). [place]: Bach. PT-OP-E Functional Tests Start: 09/21/23 16:22 Freq: Status: Active Protocol: Document 09/22/23 10:33 [facility] (Rec: 09/22/23 12:32 [facility] [id number]) Functional Tests 2 Minute Walk Test Distance 75 Five Times Sit to Stand Test Score 21 Comments UE use PT-OP-F Manual Assessment Start: 09/21/23 16:22 Freq: Status: Active Protocol: Document 09/22/23 10:33 [facility] (Rec: 09/22/23 12:32 [facility] [id number]) Manual Assessments Soft Tissue Assessment Soft Tissue Mobility Assessment TTP lumbar spine with inc soft tissue tightness PT-OP-G Mobility & Gait Start: 09/21/23 16:22 Freq: Status: Active Protocol: Document 09/22/23 10:33 [facility] (Rec: 09/22/23 12:32 [facility] [id number]) OP Gait Assessment Gait Gait Assistance Required: Independent Assistive Devices Assistive Device Straight Cane,4 Wheeled Walker Gait Deviations General Gait Pattern Decreased Stride Length, Decreased Feet Clearance Factors Limiting Gait Function Factors Limiting Gait Function Decreased Activity Tolerance, Decreased Strength Stair Climbing Evaluation Evaluation Level of Assist On Stairs Standby Assistance Devices Stair Climbing Assistive Devices Straight Cane,Left Railing Technique/Endurance Stair Climbing Direction Ascend and Descend Stair Climbing Technique Step to Step PT-OP-J Posture/Palpation/Skin Start: 09/21/23 16:22 Freq: Status: Active Protocol: Document 09/22/23 10:33 [facility] (Rec: 09/22/23 12:32 [facility] [id number]) Posture Evaluation Position Standing Evaluation View Lateral Head/C-Spine Posture Forward Head T-Spine Posture Increased Kyphosis L-Spine Posture Flattened PT-OP-K Range of Motion Start: 09/21/23 16:22 Freq: Status: Active Protocol: Document 09/22/23 10:33 [facility] (Rec: 09/22/23 12:32 [facility] [id number]) Lumbar Spine Range of Motion Lumbar Spine Active Flexion 20 Hip Goniometric Range of Motion Hip Measured in Degrees prabha Hip ROM WFL No Knee Goniometric Range of Motion Knee Measured in Degrees prabha Knee ROM WFL Yes Comments except lacking terminal extension right knee -8 Knee ROM Limitations Knee ROM Limitations Muscle Weakness Ankle and Foot Goniometric Range of Motion Ankle and Foot Measured in Degrees prabha Ankle/Foot ROM WFL Yes PT-OP-M Strength Start: 09/21/23 16:22 Freq: Status: Active Protocol: Document 09/22/23 10:33 [facility] (Rec: 09/22/23 12:32 [facility] [id number]) Trunk Strength Trunk Manual Muscle Testing Flexion 3+ Fair+ Extension 3+ Fair+ Hip Strength Hip Manual Muscle Testing prabha Flexion (L2) 3+ Fair+ Extension (S1) 3- Fair- Abduction 3+ Fair+ Knee Strength Knee Manual Muscle Testing Right Flexion (S2) 4 Good Extension (L3) 3- Fair- Left Flexion (S2) 4+ Good+ Extension (L3) 4+ Good+ Ankle/Foot Strength Ankle and Foot Manual Muscle Testing Right Dorsiflexion (L4) 4 Good Plantarflexion (S1) 4 Good Left Dorsiflexion (L4) 5 Normal Plantarflexion (S1) 5 Normal PT-OP-Q Treatments Start: 09/21/23 16:22 Freq: Status: Active Protocol: Document 01/20/24 13:08 [facility] (Rec: 01/20/24 13:15 [facility] [id number]) Cardio Equipment Recumbent Stepper (Sci-Fit) Duration (Minutes) 8 Resistance 3.5 Seat Position 10 Other LEs only 55 RPMs, 0.92 miles Gym Equipment Shuttle Balance chains red Details bal and wt shift fwd/bck, side Reps/Duration 7 min Therapeutic Exercises Sitting Exercises lean backs Reps/Minutes 10x Standing Exercises sit to stand with band Side bilateral Equipment Used UE prayer position held front Reps/Minutes 10x Comments cues for feet closer, gluteal activation, slower descend Gait Training Gait Activity outdoor Device Used uneven pavement, grass and gravel incline/declines, curbs Level of Assistance S/ Mod I Surface uneven pavement, grass, gravel , dirt Distance/Duration 8 min Treatment Focus safety Comments On curb and in grass with SPC. stairs Description indoor 4 stairs Device Used gait belt, left rail ascend, right rail descend, no device Level of Assistance CGA, cues Surface 20 stairs x 2, rest in between each rep Distance/Duration asc/desc Treatment Focus safety, functional strength, confidence Comments w/SPC and L handrail. Neuro Re-Education Treatment Balance Activities SLS Equipment // Reps/Duration 3x ea leg Comments R 2-4 sec L 6-8 sec - encouraged to do more at home obstacle course Details 4 hurdles & bal beam, lrg foam , black foam, lg blue foam, 4 & 6 box Equipment gait belt, CGA, cane first then no cane. Reps/Duration 4 laps Comments CGA, Cued wt shift into Fwd LE PT-OP-R Modalities Start: 09/21/23 16:22 Freq: Status: Active Protocol: Document 09/22/23 10:33 [facility] (Rec: 09/22/23 12:32 [facility] [id number]) Hot Pack/Cold Pack Treatment Cold Pack Location lumbar spine Patient Position Sitting PT-OP-T Assessment and Plan Start: 09/21/23 16:22 Freq: Status: Active Protocol: Document 01/20/24 13:08 [facility] (Rec: 01/20/24 13:15 [facility] [id number]) Physical Therapy Assessment Goals Four Impairment gait dysfunction Impairment requires the use of a straight cane or walker for safe mobility Lab Tester Goal (LTG) Patient will be able to safely ambulate without an assistive device on level surfaces and with straight cane with outdoor, uneven ground and be able to ascend and descend stairs with step-over step pattern 10/20/23: now ambulating at home without cane, using cane for outdoor and community but hasn 't returned to all prior gait activities especially going to beach to walk due to uneven ground and fear of falling. 12/02/23: patient progressing with less need for cane with challenged gait activities in PT including stairs, outdoor level, obstacle course (though min assist for bal x 3 today w/o device). Good progress 01/12/24: mostly met, uses cane or trekking poles for uneven ground but balance reactions and confidence improving LTG Duration goal met Three Impairment weakness Impairment LE weakness including lack of full right knee extension Short Term Goal (STG) Review current HEP and progress as appropriate for LE strengthening, especially focused on terminal knee extension righ 10/20/23: goal achieved STG Duration goal achieved Skilled Nursing Goal (LTG) Patient to be independent and compliant with HEP and demonstrate 5/5 prabha LE strength to facilitate return to prior level of activity and safety with mobility 12/02/23: LE strength grossly: hips 4-/5, knees 4/5, ankles 4 -/5 01/12/24: goal met LTG Duration goal met Two Impairment Activities in confidence balance scale Impairment 46 indicating low confidence in mobility Short Term Goal (STG) Improve ABC score to at least 60% 10/20/23: ABC score improved to 52% 12/02/23: ABC improved to 61% goal met STG Duration goal met Lab Tester Goal (LTG) Improve ABC score to at least 75% as measure of improved confidence in mobility in her home and the community 01/12/24: goal met LTG Duration goal met One Impairment Belcher Balance score Impairment 37/52 indicating moderate fall risk Short Term Goal (STG) Improve Belcher balance score to at least 44/52 10/20/23: Belcher 41/52/52 12/02/23: Belcher 46/52 STG Duration goal met Skilled Nursing Goal (LTG) Improve Belcher balance score to at least 50/52 to reduce fall risk to low to allow patient to return to prior level of function safely 01/20/24: improved to 49/52, mostly met LTG Duration 01/19/24 Progress Towards Goals Progress Towards Goals Progressing Toward Goals Progress Comments Goals all met except just under goal for Belcher Balance score. Patient is independent with HEP and walking program. Plans to return to the pool when it reopens to do aquatic exercise. Assessment Summary Assessment Goals mostly met as above. Patient ready for discharge to independent HEP including walking program and commlunity exercise program after today's visit. Physical Therapy Plan Frequency and Duration Frequency of Treatment 1 visit Duration of treatment (weeks) 1 Plan of Care Start Date 01/15/24 Plan of Care End Date 01/22/24 Discharge Physical Therapy Discharge Comments Goals mostly met, independent with home program. Next Visit Focus/Plan Next Visit Plan Need certification for today's visit. Discharged after PT visit today.
--- NOTE | 2024-01-20 13:16 | PT.OPPOC ---
Physical, Occupational & Speech Therapy At [facility] Current Diagnoses Spinal stenosis, lumbar region with neurogenic claudication (01/20/24) Other specified disorders of bone density and structure, unspecified site (01/20/24) Wedge compression fracture of fourth lumbar vertebra, initial encounter for closed fracture (01/20/24) Visit Care Team Role Provider Type Kasia Dao PA-C Primary Care Provider Physician Director Digital Strategy Specialty: Medical Address: [place], [place], [facility] Email: [email or web address] Sriram Badillo MD Family Provider Physician Specialty: Internal Medicine Address: [address] [place] [address], [facility] Email: [email or web address] [email or web address] Jin MD Attending Provider Physician Referring Provider Specialty: Orthopedics Orthopedic Surgery Address: [address] [place] [address], [address] Email: [email or web address] Plan Of Care PT-OP-B Current Condition Start: 09/21/23 16:22 Freq: Status: Active Protocol: Document 11/11/23 09:03 [facility] (Rec: 11/11/23 09:44 [facility] [id number]) Current Condition History of Current Condition Onset Date 04/20/24 Current Complaints weakness, back pain History of Current Condition compression fracture L1 when fell backward onto gravel going up stairs. Couldn't get up by herself. Son assisted her up and to her house. She just thought she bruised her back, couldn't get into see her primary physician. Went to walk in clinic. Diagnosed with L1 compression fracture. Referred to see Dr. Fair; had second x-ray at [facility]. Told to go home and take it easy and come back in 6 weeks. Fell again going into bank, couldn't feel right knee. Then stayed at home per doctor's recommendation and layed around, using a walker. Then went to [facility] due to hematuria, diagnosed with hemmorrhoid. Fell again stepping into shower wearing socks, then started taking sponge baths. Then didn't trust herself to do anything, fell again not being able to feel her knees and just dropped. Finally diagnosed with UTI, in hospital x 4 days . Feels she has lost a lot of strength. Practicing steps at hospital, fell as she started to descend due to losing balance. Then transferred to care facility in wheelchair or bed most of the time except with PT, states got weaker. Fell at care center as well due to unlocked chair. Had Home Health PT At this time back pain minimal, c/o weakness and fear of falling. Has been doing Home Health, now discharged. C/o weakness right greater than left. Prior Treatments and Tests x-ray: L1 compression fracture MRI: L3-L4: The disc height and disk signal are relatively well-preserved. Mild to moderate disc bulge is seen, with a central disc protrusion. At least moderate facet hypertrophy is seen. Associated hypertrophy of the ligamentum flavum can be seen. Fluid is seen within the facet joints themselves. There is moderate to severe bilateral neural foraminal narrowing seen, with an associated a degree of compression seen upon the exiting nerve roots. At least moderate central canal narrowing is seen. L4-L5: The disc height and disk signal are relatively well-preserved. Mild generalized disc bulge is seen. Moderate facet joint hypertrophy is seen. There is mild-to- moderate right-sided and no left-sided neural foraminal narrowing. No central canal narrowing is seen. L5-S1: At least moderate loss of disc height is seen. Mild to moderate disc bulge is seen, which is eccentric to the left. Mild to moderate facet hypertrophy is seen. No significant neural foraminal or central canal narrowing can be seen. PT-OP-T Assessment and Plan Start: 09/21/23 16:22 Freq: Status: Active Protocol: Document 01/20/24 13:08 [facility] (Rec: 01/20/24 13:15 [facility] [id number]) Physical Therapy Assessment Goals Four Impairment gait dysfunction Impairment requires the use of a straight cane or walker for safe mobility Time Study Clerk Goal (LTG) Patient will be able to safely ambulate without an assistive device on level surfaces and with straight cane with outdoor, uneven ground and be able to ascend and descend stairs with step-over step pattern 10/20/23: now ambulating at home without cane, using cane for outdoor and community but hasn 't returned to all prior gait activities especially going to beach to walk due to uneven ground and fear of falling. 12/02/23: patient progressing with less need for cane with challenged gait activities in PT including stairs, outdoor level, obstacle course (though min assist for bal x 3 today w/o device). Good progress 01/12/24: mostly met, uses cane or trekking poles for uneven ground but balance reactions and confidence improving LTG Duration goal met Three Impairment weakness Impairment LE weakness including lack of full right knee extension Short Term Goal (STG) Review current HEP and progress as appropriate for LE strengthening, especially focused on terminal knee extension righ 10/20/23: goal achieved STG Duration goal achieved Long-Term Goal (LTG) Patient to be independent and compliant with HEP and demonstrate 5/5 prabha LE strength to facilitate return to prior level of activity and safety with mobility 12/02/23: LE strength grossly: hips 4-/5, knees 4/5, ankles 4 -/5 01/12/24: goal met LTG Duration goal met Two Impairment Activities in confidence balance scale Impairment 46 indicating low confidence in mobility Short Term Goal (STG) Improve ABC score to at least 60% 10/20/23: ABC score improved to 52% 12/02/23: ABC improved to 61% goal met STG Duration goal met Long-Term Goal (LTG) Improve ABC score to at least 75% as measure of improved confidence in mobility in her home and the community 01/12/24: goal met LTG Duration goal met One Impairment Belcher Balance score Impairment 37/52 indicating moderate fall risk Short Term Goal (STG) Improve Belcher balance score to at least 44/52 10/20/23: Belcher 41/52/52 12/02/23: Belcher 46/52 STG Duration goal met Long-Term Goal (LTG) Improve Belcher balance score to at least 50/52 to reduce fall risk to low to allow patient to return to prior level of function safely 01/20/24: improved to 49/52, mostly met LTG Duration 01/19/24 Progress Towards Goals Progress Towards Goals Progressing Toward Goals Progress Comments Goals all met except just under goal for Belcher Balance score. Patient is independent with HEP and walking program. Plans to return to the pool when it reopens to do aquatic exercise. Assessment Summary Assessment Goals mostly met as above. Patient ready for discharge to independent HEP including walking program and commlunity exercise program after today's visit. Physical Therapy Plan Frequency and Duration Frequency of Treatment 1 visit Duration of treatment (weeks) 1 Plan of Care Start Date 01/15/24 Plan of Care End Date 01/22/24 Discharge Physical Therapy Discharge Comments Goals mostly met, independent with home program. Next Visit Focus/Plan Next Visit Plan Need certification for today's visit. Discharged after PT visit today. Plan of Care Dates Plan of Care Start Date 01/15/24 Plan of Care End Date 01/22/24 Electronically Signed by: Nissa Sanchez, PT 01/20/24 [id number] If you are in agreement with this Plan of Care, please return a signed and dated copy. I have reviewed this Plan of Care and certify that the skilled therapy services above are required to meet the patient?s needs. Physician Signature Date Printed Name and Credentials Clinical Instructor Signature Printed Name and Credentials
--- NOTE | 2024-02-02 15:33 | PT.OPDS ---
Current Diagnoses Spinal stenosis, lumbar region with neurogenic claudication (01/20/24) Other specified disorders of bone density and structure, unspecified site (01/20/24) Wedge compression fracture of fourth lumbar vertebra, initial encounter for closed fracture (01/20/24) Visit Care Team Role Provider Type Kasia Dao PA-C Primary Care Provider Physician Under Presser Specialty: Medical Address: [place], [address] Email: [email or web address] Badillo MD Family Provider Physician Specialty: Internal Medicine Address: [address] [place] [address], [id number] Email: [email or web address] Attending Provider Physician Referring Provider Specialty: Orthopedics Orthopedic Surgery Address: [address] [place] [address], [id number] Email: [email or web address] Visit Number Visit Number 27 Discharge Summary PT-OP-B Current Condition Start: 09/21/23 16:22 Freq: Status: Active Protocol: Document 11/11/23 09:03 BASILIO (Rec: 11/11/23 09:44 [facility] [id number]) Current Condition History of Current Condition Onset Date 04/20/24 Current Complaints weakness, back pain History of Current Condition compression fracture L1 when fell backward onto gravel going up stairs. Couldn't get up by herself. Son assisted her up and to her house. She just thought she bruised her back, couldn't get into see her primary physician. Went to walk in clinic. Diagnosed with L1 compression fracture. Referred to see Dr. Fair; had second x-ray at [facility]. Told to go home and take it easy and come back in 6 weeks. Fell again going into bank, couldn't feel right knee. Then stayed at home per doctor's recommendation and layed around, using a walker. Then went to [facility] due to hematuria, diagnosed with hemmorrhoid. Fell again stepping into shower wearing socks, then started taking sponge baths. Then didn't trust herself to do anything, fell again not being able to feel her knees and just dropped. Finally diagnosed with UTI, in hospital x 4 days . Feels she has lost a lot of strength. Practicing steps at hospital, fell as she started to descend due to losing balance. Then transferred to care facility in wheelchair or bed most of the time except with PT, states got weaker. Fell at care center as well due to unlocked chair. Had Home Health PT At this time back pain minimal, c/o weakness and fear of falling. Has been doing Home Health, now discharged. C/o weakness right greater than left. Prior Treatments and Tests x-ray: L1 compression fracture MRI: L3-L4: The disc height and disk signal are relatively well-preserved. Mild to moderate disc bulge is seen, with a central disc protrusion. At least moderate facet hypertrophy is seen. Associated hypertrophy of the ligamentum flavum can be seen. Fluid is seen within the facet joints themselves. There is moderate to severe bilateral neural foraminal narrowing seen, with an associated a degree of compression seen upon the exiting nerve roots. At least moderate central canal narrowing is seen. L4-L5: The disc height and disk signal are relatively well-preserved. Mild generalized disc bulge is seen. Moderate facet joint hypertrophy is seen. There is mild-to- moderate right-sided and no left-sided neural foraminal narrowing. No central canal narrowing is seen. L5-S1: At least moderate loss of disc height is seen. Mild to moderate disc bulge is seen, which is eccentric to the left. Mild to moderate facet hypertrophy is seen. No significant neural foraminal or central canal narrowing can be seen. PT-OP-C Subjective Start: 09/21/23 16:22 Freq: Status: Active Protocol: Document 01/20/24 13:08 [facility] (Rec: 01/20/24 13:15 [facility] [id number]) OP-PT Subjective Patient Comments Patient Comments Reports now can walk around the track 2x easily using trekking poles, sometimes able to do 3rd lap. Still tires easily, curbs still feel scary but improving. Trying to do more of her balance exercises as well. PT-OP-D Balance Start: 09/21/23 16:22 Freq: Status: Active Protocol: Document 09/22/23 10:33 [facility]AK (Rec: 09/22/23 12:32 [facility] [id number]) OP-PT Balance Assessment Sitting Balance Static Sitting Balance Ability Normal Dynamic Sitting Balance Ability Normal Balance Tests Belcher Balance Test Belcher Balance Test Score 38 Belcher Balance Assessment Evaluation Sitting to Standing Ability Independent w/out Hands Unsupported Stance Safely- 2 minutes Sitting Unsupported, Feet on Floor Safely- 2 minutes Standing to Sitting Ability Assist, Control w/Hands Transfer Ability Safely, Hand Use Unsupported Stance- Eyes Closed Supervision, 10 seconds Unsupported Stance- Eyes Open Supervision to maintain Reaching Forward Standing Safely, 5 inches Pick- Up Object From Floor Supervision Look Behind Shoulder - Standing Shifts Weight Well Turning 360 Degrees Supervision/Verbal Cues Unsupported Stance, Alternating Feet on 4 Steps w/Supervision Stair Unsupported Tandem Stance Balance Lost- Step/Stand Unilateral Leg Stance Unable,assist to not fall Total Score Belcher Total Score (out of 56 points) 37 Tinetti Balance Assessment Sitting Balance Sitting Balance Steady, safe Scoring and Interpretation Tinetti Composite Score (points) 1 Squires Fall Scale Copyright Permission PT-OP-E Functional Tests Start: 09/21/23 16:22 Freq: Status: Active Protocol: Document 09/22/23 10:33 [facility] (Rec: 09/22/23 12:32 [facility] [id number]) Functional Tests 2 Minute Walk Test Distance 75 Five Times Sit to Stand Test Score 21 Comments UE use PT-OP-F Manual Assessment Start: 09/21/23 16:22 Freq: Status: Active Protocol: Document 09/22/23 10:33 [facility] (Rec: 09/22/23 12:32 [facility] [id number]) Manual Assessments Soft Tissue Assessment Soft Tissue Mobility Assessment TTP lumbar spine with inc soft tissue tightness PT-OP-G Mobility & Gait Start: 09/21/23 16:22 Freq: Status: Active Protocol: Document 09/22/23 10:33 [facility] (Rec: 09/22/23 12:32 [facility] [id number]) OP Gait Assessment Gait Gait Assistance Required: Independent Assistive Devices Assistive Device Straight Cane,4 Wheeled Walker Gait Deviations General Gait Pattern Decreased Stride Length, Decreased Feet Clearance Factors Limiting Gait Function Factors Limiting Gait Function Decreased Activity Tolerance, Decreased Strength Stair Climbing Evaluation Evaluation Level of Assist On Stairs Standby Assistance Devices Stair Climbing Assistive Devices Straight Cane,Left Railing Technique/Endurance Stair Climbing Direction Ascend and Descend Stair Climbing Technique Step to Step PT-OP-J Posture/Palpation/Skin Start: 09/21/23 16:22 Freq: Status: Active Protocol: Document 09/22/23 10:33 [facility] (Rec: 09/22/23 12:32 [facility] [id number]) Posture Evaluation Position Standing Evaluation View Lateral Head/C-Spine Posture Forward Head T-Spine Posture Increased Kyphosis L-Spine Posture Flattened PT-OP-K Range of Motion Start: 09/21/23 16:22 Freq: Status: Active Protocol: Document 09/22/23 10:33 [facility] (Rec: 09/22/23 12:32 [facility] [id number]) Lumbar Spine Range of Motion Lumbar Spine Active Flexion 20 Hip Goniometric Range of Motion Hip prabha Hip ROM WFL No Knee Goniometric Range of Motion Knee prabha Knee ROM WFL Yes Comments except lacking terminal extension right knee -8 Knee ROM Limitations Knee ROM Limitations Muscle Weakness Ankle and Foot Goniometric Range of Motion Ankle and Foot prabha Ankle/Foot ROM WFL Yes PT-OP-M Strength Start: 09/21/23 16:22 Freq: Status: Active Protocol: Document 09/22/23 10:33 [facility] (Rec: 09/22/23 12:32 [facility] [id number]) Trunk Strength Trunk Manual Muscle Testing Flexion 3+ Fair+ Extension 3+ Fair+ Hip Strength Hip Manual Muscle Testing prabha Flexion (L2) 3+ Fair+ Extension (S1) 3- Fair- Abduction 3+ Fair+ Knee Strength Knee Manual Muscle Testing Right Flexion (S2) 4 Good Extension (L3) 3- Fair- Left Flexion (S2) 4+ Good+ Extension (L3) 4+ Good+ Ankle/Foot Strength Ankle and Foot Manual Muscle Testing Right Dorsiflexion (L4) 4 Good Plantarflexion (S1) 4 Good Left Dorsiflexion (L4) 5 Normal Plantarflexion (S1) 5 Normal PT-OP-T Assessment and Plan Start: 09/21/23 16:22 Freq: Status: Active Protocol: Document 01/20/24 13:08 [facility] (Rec: 01/20/24 13:15 [facility] [id number]) Physical Therapy Assessment Goals Four Impairment gait dysfunction Impairment requires the use of a straight cane or walker for safe mobility Shelter Goal (LTG) Patient will be able to safely ambulate without an assistive device on level surfaces and with straight cane with outdoor, uneven ground and be able to ascend and descend stairs with step-over step pattern 10/20/23: now ambulating at home without cane, using cane for outdoor and community but hasn 't returned to all prior gait activities especially going to beach to walk due to uneven ground and fear of falling. 12/02/23: patient progressing with less need for cane with challenged gait activities in PT including stairs, outdoor level, obstacle course (though min assist for bal x 3 today w/o device). Good progress 01/12/24: mostly met, uses cane or trekking poles for uneven ground but balance reactions and confidence improving LTG Duration goal met Three Impairment weakness Impairment LE weakness including lack of full right knee extension Short Term Goal (STG) Review current HEP and progress as appropriate for LE strengthening, especially focused on terminal knee extension righ 10/20/23: goal achieved STG Duration goal achieved Shelter Goal (LTG) Patient to be independent and compliant with HEP and demonstrate 5/5 prabha LE strength to facilitate return to prior level of activity and safety with mobility 12/02/23: LE strength grossly: hips 4-/5, knees 4/5, ankles 4 -/5 01/12/24: goal met LTG Duration goal met Two Impairment Activities in confidence balance scale Impairment 46 indicating low confidence in mobility Short Term Goal (STG) Improve ABC score to at least 60% 10/20/23: ABC score improved to 52% 12/02/23: ABC improved to 61% goal met STG Duration goal met Shelter Goal (LTG) Improve ABC score to at least 75% as measure of improved confidence in mobility in her home and the community 01/12/24: goal met LTG Duration goal met One Impairment Belcher Balance score Impairment 37/52 indicating moderate fall risk Short Term Goal (STG) Improve Belcher balance score to at least 44/52 10/20/23: Belcher 41/52/52 12/02/23: Belcher 46/52 STG Duration goal met Shelter Goal (LTG) Improve Belcher balance score to at least 50/52 to reduce fall risk to low to allow patient to return to prior level of function safely 01/20/24: improved to 49/52, mostly met LTG Duration 01/19/24 Progress Towards Goals Progress Towards Goals Progressing Toward Goals Progress Comments Goals all met except just under goal for Belcher Balance score. Patient is independent with HEP and walking program. Plans to return to the pool when it reopens to do aquatic exercise. Assessment Summary Assessment Goals mostly met as above. Patient ready for discharge to independent HEP including walking program and commlunity exercise program after today's visit. Physical Therapy Plan Frequency and Duration Frequency of Treatment 1 visit Duration of treatment (weeks) 1 Plan of Care Start Date 01/15/24 Plan of Care End Date 01/22/24 Discharge Physical Therapy Discharge Comments Goals mostly met, independent with home program. Next Visit Focus/Plan Next Visit Plan Need certification for today's visit. Discharged after PT visit today.
== END 2024-02-16 13:27 | disposition home or self-care (01) ==
LOC: PHYS 11:15
PROVIDERS: Family Provider Internal Medicine; PCP Student in an Organized Health Care Education/Training Program; Referring Provider Physical Medicine & Rehabilitation; Visit Provider Physical Medicine & Rehabilitation
DX: S32.040A Wedge compression fracture of fourth lumbar vertebra, initial encounter for closed fracture (principal); M85.80 Other specified disorders of bone density and structure, unspecified site; M48.062 Spinal stenosis, lumbar region with neurogenic claudication
CPT/HCPCS: 97110; 97112; 97116; 97162; 97530; 97535